=== PATIENT | male | born 1960 | race Caucasian/White ===

== ENCOUNTER 2023-02-28 20:58 | Emergency (ER) | payer MEDICAID, SELFPAY ==
[2023-02-28] VITALS (42 sets, daily range): BP systolic 90–182; BP diastolic 53–117; PULSE 58–75; RESP 11–26; TEMP 36.4; O2SAT 83–100; BMI 23.0
--- NOTE | 2023-02-28 21:07 | ECG_ITS ---
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
--- NOTE | 2023-02-28 21:07 | ED_ITS ---
HPI - Overdose General Chief Complaint: Overdose Stated Complaint: SUICIDE Time Seen by Provider: 02/28/23 21:07 History of Present Illness HPI Narrative: Patient brought in via EMS with a complaint of suicide attempt and overdose. Patient states he has drank about 10-12 tallboy's today. He drinks about every week. He states he has been depressed in the last 2 years after he was forced to retire because of declining health. Today his granddaughter did not make the volleyball team he was very upset so he grabbed the bottle of metoprolol which was filled february 19. He states he took the entire bottle of the pills that he had left-22 tablets of metoprolol 50 mg. She immediately called 911. She states he has been hospitalized in the past for mental health. He states he just sick and tired of living this way. Patient states he feels shaky. Denies any illegal drug use. Related Data Home Medications Medication Instructions Recorded Confirmed atorvastatin 80 mg tablet 80 mg PO DAILY 02/28/23 02/28/23 biotin 10,000 mcg capsule 10,000 mcg PO BID 02/28/23 02/28/23 gabapentin 400 mg capsule 400 mg PO TID 02/28/23 02/28/23 losartan 100 mg tablet 100 mg PO DAILY 02/28/23 02/28/23 magnesium oxide 400 mg (241.3 mg 400 mg PO DAILY 02/28/23 02/28/23 magnesium) tablet metoprolol succinate 50 mg 50 mg PO DAILY 02/28/23 02/28/23 tablet,extended release 24 hr spironolactone 25 mg tablet 25 mg PO DAILY 02/28/23 02/28/23 topiramate 50 mg tablet 50 mg PO BID 02/28/23 02/28/23 Allergies Allergy/AdvReac Type Severity Reaction Status Date / Time ivp dye Allergy Severe Uncoded 02/28/23 21:08 shell fish Allergy Severe Uncoded 02/28/23 21:08 Review of Systems ROS Status of ROS 10 or more systems reviewed and unremarkable except as noted in history and below Exam Narrative Exam Narrative: Nurses notes and vital signs reviewed and patient is not hypoxic. General: Nontoxic, Alcohol on board, intoxicated, cooperative, and in no apparent distress. Skin: Warm, dry, no pallor noted. No Rash Head: Normocephalic, atraumatic. Neck: Supple, non-tender. Eye: Pupils are equal, round and EOMI. No scleral icterus. Ears, Nose, Mouth, and Throat: TM clear, no posterior oropharynx erythema or nasal mucosal hypertrophy, uvula is mid-line Oral mucosa is moist Cardiovascular: Regular Rate and Rhythm without murmur, gallop or rub. Respiratory: No accessory muscle use or respiratory distress. Lungs are clear to auscultation, no wheezing, rales or rhonchi Chest Wall: no tenderness Back: No midline thoracic or lumbar vertebral tenderness. No CVA tenderness Musculoskeletal: normal ROM, no calf or popliteal tenderness, no lower extremity edema/swelling GI: Abdomen is soft, non-distended. Normal bowel sounds. No masses appreciated. No tenderness to palpation. No rebound, guarding, or rigidity noted. Neurological: A&O x4. No cranial nerve dysfunction observed. No truncal ataxia. Moves all extremities. Psychiatric: Cooperative and interactive. Tearful, stating he does not want to live anymore. Constitutional Vital Signs, click to edit/add: Last Vital Signs Temp 97.5 F L 02/28/23 21:00 Pulse 66 03/01/23 06:00 Resp 19 03/01/23 01:11 BP 124/75 03/01/23 06:00 Pulse Ox 97 03/01/23 05:40 O2 Del Method Room Air 02/28/23 21:21 Course Vital Signs Vital signs: Vital Signs Temperature 97.5 F L 02/28/23 21:00 Pulse Rate 70 02/28/23 21:00 Respiratory Rate 14 02/28/23 21:00 Blood Pressure 180/100 H 02/28/23 21:00 Pulse Oximetry 97 02/28/23 21:00 Oxygen Delivery Method Room Air 02/28/23 21:00 Temperature 97.5 F L 02/28/23 21:00 Pulse Rate 66 03/01/23 06:00 Respiratory Rate 19 03/01/23 01:11 Blood Pressure 124/75 03/01/23 06:00 Pulse Oximetry 97 03/01/23 05:40 Oxygen Delivery Method Room Air 02/28/23 21:21 MDM - Overdose MDM Narrative Medical decision making narrative: IV established, patient was given 1 L of normal saline and 50 g of charcoal was administered. poison control was contacted. Patient's vital signs are stable at this time. Patient's EKG shows sinus rhythm normal axis, no bradycardia, no acute ischemic changes. Completely control in place for observation until 4:30 AM. The patient has remai leeann hemodynamically stable. He was given a liter of normal saline. Heart rate 63, blood pressure 130/72, oxygen saturations 98 percent on room air. Patient is medically clear for psychiatric admission. Patient has been accepted by Dr. Salomon to [facility] [address] out to dr Patel Awaiting transportation. Differential Diagnosis Differential diagnosis: Likely drug overdose Lab Data Attestation: I reviewed the patient's lab results. Labs: Lab Results 02/28/23 02/28/23 02/28/23 Range/Units 21:00 21:55 22:22 WBC 6.3 (4.0-11.0) 10^3/uL RBC 4.08 L (4.70-6.10) 10^6/uL Hgb 13.6 L (14.0-18.0) g/dL Hct 37.6 L (42.0-54.0) % MCV 92.2 (80.0-94.0) fL MCH 33.3 (25.9-34.0) pg MCHC 36.2 H (29.9-35.2) g/dL RDW 11.8 (11.0-15.0) % Plt Count 223 (150-450) 10^3/uL MPV 10.7 (9.5-13.5) fL Neut % (Auto) 61.2 (43.0-75.0) % Lymph % (Auto) 25.2 (20.5-60.0) % Floyd % (Auto) 9.0 (1.7-12.0) % Eos % (Auto) 3.8 (0.9-7.0) % Baso % (Auto) 0.5 (0.2-2.0) % Neut # (Auto) 3.9 (1.4-6.5) 10^3/uL Lymph # (Auto) 1.6 (1.2-3.8) 10^3/uL Floyd # (Auto) 0.6 (0.3-0.8) 10^3/uL Eos # (Auto) 0.2 (0.0-0.7) 10^3/uL Baso # (Auto) 0.0 (0.0-0.1) 10^3/uL Abs Immat Gran (auto) 0.02 (0.00-0.03) 10^3/uL Imm/Tot Granulo (auto) 0.3 (0.0-0.5) % Sodium 139 (136-145) mmol/L Potassium 3.5 (3.5-5.1) mmol/L Chloride 108 H (98-107) mmol/L Carbon Dioxide 16.1 L (21.0-32.0) mmol/L Anion Gap 18.4 BUN 15.0 (7.0-18.0) mg/dL Creatinine 0.84 (0.70-1.30) mg/dL Est GFR ( Amer) >60 (>=60) Est GFR (Non-Af Amer) >60 (>=60) BUN/Creatinine Ratio 17.9 Glucose 144 H (74-106) mg/dL Calcium 8.1 L (8.5-10.1) mg/dL Total Bilirubin 0.4 (0.2-1.0) mg/dL AST 35 (15-37) U/L ALT 59 (16-63) U/L Alkaline Phosphatase 119 H (46-116) U/L Total Protein 6.6 (6.4-8.2) g/dL Albumin 3.6 (3.4-5.0) g/dL Globulin 3.0 g/dL Albumin/Globulin Ratio 1.2 Urine Color Lt. yellow (YELLOW) Urine Clarity Clear (CLEAR) Urine pH 6.0 (5.0-9.0) Ur Specific [place] <=1.005 A (1.005-1.025) Urine Protein Negative (NEG/TRACE) mg/dL Urine Glucose (UA) Negative (NEGATIVE) mg/dL Urine Ketones Negative (NEGATIVE) mg/dL Urine Occult Blood Negative (NEGATIVE) Urine Nitrite Negative (NEGATIVE) Urine Bilirubin Negative (NEGATIVE) Urine Urobilinogen 0.2 (0.2-1.0) EU/dL Ur Leukocyte Esterase Negative (NEGATIVE) Salicylates <2.8 (<=19.9) mg/dL Urine Opiates Screen Negative (NEGATIVE) Ur Buprenorphine Scrn Negative (NEGATIVE) Ur Oxycodone Screen Negative (NEGATIVE) Urine Methadone Screen Negative (NEGATIVE) Ur Propoxyphene Screen Negative (NEGATIVE) Acetaminophen <2.0 L (10.0-30.0) ug/mL Ur Barbiturates Screen Negative (NEGATIVE) U Tricyclic Antidepress Negative (NEGATIVE) Ur Phencyclidine Scrn Negative (NEGATIVE) Ur Amphetamines Screen Negative (NEGATIVE) U Methamphetamines Scrn Negative (NEGATIVE) U Benzodiazepines Scrn Negative (NEGATIVE) Urine Cocaine Screen Negative (NEGATIVE) U Cannabinoids Screen Negative (NEGATIVE) Ethanol Quant 135 mg/dL POC Glucose (74-106) mg/dL 02/28/23 Range/Units 22:23 WBC (4.0-11.0) 10^3/uL RBC (4.70-6.10) 10^6/uL Hgb (14.0-18.0) g/dL Hct (42.0-54.0) % MCV (80.0-94.0) fL MCH (25.9-34.0) pg MCHC (29.9-35.2) g/dL RDW (11.0-15.0) % Plt Count (150-450) 10^3/uL MPV (9.5-13.5) fL Neut % (Auto) (43.0-75.0) % Lymph % (Auto) (20.5-60.0) % Floyd % (Auto) (1.7-12.0) % Eos % (Auto) (0.9-7.0) % Baso % (Auto) (0.2-2.0) % Neut # (Auto) (1.4-6.5) 10^3/uL Lymph # (Auto) (1.2-3.8) 10^3/uL Floyd # (Auto) (0.3-0.8) 10^3/uL Eos # (Auto) (0.0-0.7) 10^3/uL Baso # (Auto) (0.0-0.1) 10^3/uL Abs Immat Gran (auto) (0.00-0.03) 10^3/uL Imm/Tot Granulo (auto) (0.0-0.5) % Sodium (136-145) mmol/L Potassium (3.5-5.1) mmol/L Chloride (98-107) mmol/L Carbon Dioxide (21.0-32.0) mmol/L Anion Gap BUN (7.0-18.0) mg/dL Creatinine (0.70-1.30) mg/dL Est GFR ( Amer) (>=60) Est GFR (Non-Af Amer) (>=60) BUN/Creatinine Ratio Glucose (74-106) mg/dL Calcium (8.5-10.1) mg/dL Total Bilirubin (0.2-1.0) mg/dL AST (15-37) U/L ALT (16-63) U/L Alkaline Phosphatase (46-116) U/L Total Protein (6.4-8.2) g/dL Albumin (3.4-5.0) g/dL Globulin g/dL Albumin/Globulin Ratio Urine Color (YELLOW) Urine Clarity (CLEAR) Urine pH (5.0-9.0) Ur Specific [place] (1.005-1.025) Urine Protein (NEG/TRACE) mg/dL Urine Glucose (UA) (NEGATIVE) mg/dL Urine Ketones (NEGATIVE) mg/dL Urine Occult Blood (NEGATIVE) Urine Nitrite (NEGATIVE) Urine Bilirubin (NEGATIVE) Urine Urobilinogen (0.2-1.0) EU/dL Ur Leukocyte Esterase (NEGATIVE) Salicylates (<=19.9) mg/dL Urine Opiates Screen (NEGATIVE) Ur Buprenorphine Scrn (NEGATIVE) Ur Oxycodone Screen (NEGATIVE) Urine Methadone Screen (NEGATIVE) Ur Propoxyphene Screen (NEGATIVE) Acetaminophen (10.0-30.0) ug/mL Ur Barbiturates Screen (NEGATIVE) U Tricyclic Antidepress (NEGATIVE) Ur Phencyclidine Scrn (NEGATIVE) Ur Amphetamines Screen (NEGATIVE) U Methamphetamines Scrn (NEGATIVE) U Benzodiazepines Scrn (NEGATIVE) Urine Cocaine Screen (NEGATIVE) U Cannabinoids Screen (NEGATIVE) Ethanol Quant mg/dL POC Glucose 147 H (74-106) mg/dL ECG Data Attestation: I personally reviewed and interpreted this ECG as follows: Critical Care Time Critical Care Time Critical Care Time: Yes Total Critical Care Time: 35 Attestation: Critical Care Time: 35 minutes, critical care time is separate from any procedures that are performed. The following was considered in the determination of critical care but not limited to the level medical decision-making, intensive cardiac and/or respiratory monitor, frequent vital sign monitoring, evaluation of laboratory studies, evaluation of a radiographic studies, oxygen monitoring and constant monitoring. Discharge Plan Discharge Chief Complaint: Overdose Clinical Impression: Suicide attempt by beta renetta overdose, Medical clearance for psychiatric admission Patient Disposition: [facility] Time of Disposition Decision: 06:52 Discharge Location: [facility] Discharge location: [address] salomon Condition: Good Mode of Transportation: EMS
--- NOTE | 2023-02-28 21:20 | PC.NURSE ---
placed by EMS
[2023-02-28] MEDS: 0.9 % SODIUM CHLORIDE 1,000 ML 100 ML IV (21:24)
[2023-02-28 21:27] LABS: Bilirubin Urine NEGATIVE (NEGATIVE); Blood Urine NEGATIVE (NEGATIVE); Clarity Urine CLEAR (CLEAR); Color Urine LT. YELLOW (YELLOW); Glucose Urine UA NEGATIVE (NEGATIVE); Ketones Urine NEGATIVE (NEGATIVE); Leukocyte Esterase Urine NEGATIVE (NEGATIVE); Nitrite Urine NEGATIVE (NEGATIVE); Protein Urine NEGATIVE (NEG/TRACE); Specific Gravity Urine <=1.005 (1.005-1.025); Urine Microscopic Indicated NO; Urobilinogen Urine 0.2 EU/dL (0.2-1.0)
[2023-02-28 21:49] LABS: Amphetamine Screen Urine NEGATIVE (NEGATIVE); Barbiturates Screen Urine NEGATIVE (NEGATIVE); Benzodiazepines Screen Urine NEGATIVE (NEGATIVE); Buprenorphine Screen Urine NEGATIVE (NEGATIVE); Cannabinoid Screen Urine NEGATIVE (NEGATIVE); Cocaine Screen Urine NEGATIVE (NEGATIVE); Methadone Screen Urine NEGATIVE (NEGATIVE); Methamphetamines Screen Urine NEGATIVE (NEGATIVE); Opiate Screen Urine NEGATIVE (NEGATIVE); Oxycodone Screen Urine NEGATIVE (NEGATIVE); Phencyclidine Screen Urine NEGATIVE (NEGATIVE); Tricyclic Antidepressant Urine NEGATIVE (NEGATIVE)
[2023-02-28 22:05] LABS: Basophils Percent Auto 0.5 % (0.2-2.0); Eosinophils Absolute Auto 0.2 10^3/uL (0.0-0.7); Eosinophils Percent Auto 3.8 % (0.9-7.0); Hematocrit 37.6 % (42.0-54.0); Hemoglobin 13.6 g/dL (14.0-18.0); Immature Granulocytes Abs Auto 0.02 10^3/uL (0.00-0.03); Immature Granulocytes Pct Auto 0.3 % (0.0-0.5); Lymphocytes Absolute Auto 1.6 10^3/uL (1.2-3.8); Lymphocytes Percent Auto 25.2 % (20.5-60.0); Mean Corpuscular HGB Conc 36.2 g/dL (29.9-35.2); Mean Corpuscular Hemoglobin 33.3 pg (25.9-34.0); Mean Corpuscular Volume 92.2 fL (80.0-94.0); Mean Platelet Volume 10.7 fL (9.5-13.5); Monocytes Absolute Auto 0.6 10^3/uL (0.3-0.8); Neutrophils Absolute Auto 3.9 10^3/uL (1.4-6.5); Neutrophils Percent Auto 61.2 % (43.0-75.0); Platelet Count 223 10^3/uL (150-450); Red Blood Count 4.08 10^6/uL (4.70-6.10); Red Cell Distribution Width 11.8 % (11.0-15.0); White Blood Count 6.3 10^3/uL (4.0-11.0)
[2023-02-28 22:34] LABS: Glucometer 147 mg/dL (74-106)
[2023-02-28 23:11] LABS: Alanine Aminotransferase 59 U/L (16-63); Albumin Globulin Ratio 1.2; Albumin Level 3.6 g/dL (3.4-5.0); Alkaline Phosphatase 119 U/L (46-116); Anion Gap 18.4; Aspartate Amino Transferase 35 U/L (15-37); BUN Creatinine Ratio 17.9; Bilirubin Total 0.4 mg/dL (0.2-1.0); Calcium 8.1 mg/dL (8.5-10.1); Carbon Dioxide 16.1 mmol/L (21.0-32.0); Chloride 108 mmol/L (98-107); Estimated GFR (African America >60 (>=60); Estimated GFR (Non-African Ame >60 (>=60); Ethanol 135 mg/dL; Glucose 144 mg/dL (74-106); Potassium 3.5 mmol/L (3.5-5.1); Salicylate <2.8 mg/dL (<=19.9); Sodium 139 mmol/L (136-145); Total Protein 6.6 g/dL (6.4-8.2)
[2023-02-28 23:13] LABS: Acetaminophen <2.0 ug/mL (10.0-30.0)
[2023-03-01] VITALS (71 sets, daily range): BP systolic 77–172; BP diastolic 46–101; PULSE 59–85; RESP 15–21; O2SAT 88–99
[2023-03-01] MEDS: PROMETHAZINE HCL 25 MG/ML VIAL 12.5 MG IV (01:34)
[2023-03-01] MEDS: 0.9 % SODIUM CHLORIDE 1,000 ML 1000 ML IV (01:34)
== END 2023-03-01 08:58 ==
PROVIDERS: Emergency Provider Emergency Medicine; PCP Family Medicine
DX: T44.7X2A Poisoning by beta-adrenoreceptor antagonists, intentional self-harm, initial encounter (principal); Z79.899 Other long term (current) drug therapy
CPT/HCPCS: 36415; 36416; 80053; 80179; 80307; 80320; 80329; 81003; 82948; 85025; 93005; 96374; 99285

== ENCOUNTER 2024-06-11 11:40 | Outpatient (OUT) | payer OTHER, SELFPAY ==
[2024-06-11 12:04] LABS: Basophils Percent Auto 0.6 % (0.2-2.0); Eosinophils Absolute Auto 0.2 10^3/uL (0.0-0.7); Eosinophils Percent Auto 2.2 % (0.9-7.0); Hemoglobin 15.5 g/dL (14.0-18.0); Immature Granulocytes Abs Auto 0.02 10^3/uL (0.00-0.03); Immature Granulocytes Pct Auto 0.3 % (0.0-0.5); Lymphocytes Percent Auto 27.8 % (20.5-60.0); Mean Corpuscular HGB Conc 34.4 g/dL (29.9-35.2); Mean Corpuscular Hemoglobin 33.3 pg (25.9-34.0); Mean Corpuscular Volume 96.6 fL (80.0-94.0); Mean Platelet Volume 10.7 fL (9.5-13.5); Monocytes Absolute Auto 0.5 10^3/uL (0.3-0.8); Monocytes Percent Auto 7.4 % (1.7-12.0); Neutrophils Absolute Auto 4.5 10^3/uL (1.4-6.5); Neutrophils Percent Auto 61.7 % (43.0-75.0); Platelet Count 189 10^3/uL (150-450); Red Blood Count 4.66 10^6/uL (4.70-6.10); Red Cell Distribution Width 11.5 % (11.0-15.0); White Blood Count 7.3 10^3/uL (4.0-11.0)
== END 2024-06-11 11:41 | disposition home or self-care (01) ==
LOC: LAB 11:42
PROVIDERS: PCP Family Medicine; Visit Provider Family Medicine
DX: K57.33 Diverticulitis of large intestine without perforation or abscess with bleeding (principal); K62.5 Hemorrhage of anus and rectum
CPT/HCPCS: 36415; 85025

== ENCOUNTER 2024-07-29 15:57 | Outpatient (OUT) | payer OTHER, SELFPAY ==
[2024-07-29 16:20] LABS: Basophils Percent Auto 0.4 % (0.2-2.0); Eosinophils Absolute Auto 0.1 10^3/uL (0.0-0.7); Eosinophils Percent Auto 1.3 % (0.9-7.0); Hematocrit 50.5 % (42.0-54.0); Hemoglobin 18.1 g/dL (14.0-18.0); Immature Granulocytes Abs Auto 0.01 10^3/uL (0.00-0.03); Immature Granulocytes Pct Auto 0.2 % (0.0-0.5); Lymphocytes Percent Auto 44.7 % (20.5-60.0); Mean Corpuscular HGB Conc 35.8 g/dL (29.9-35.2); Mean Corpuscular Hemoglobin 33.8 pg (25.9-34.0); Mean Corpuscular Volume 94.2 fL (80.0-94.0); Mean Platelet Volume 10.8 fL (9.5-13.5); Monocytes Absolute Auto 0.7 10^3/uL (0.3-0.8); Monocytes Percent Auto 15.1 % (1.7-12.0); Neutrophils Absolute Auto 1.7 10^3/uL (1.4-6.5); Neutrophils Percent Auto 38.3 % (43.0-75.0); Platelet Count 144 10^3/uL (150-450); Red Blood Count 5.36 10^6/uL (4.70-6.10); Red Cell Distribution Width 11.5 % (11.0-15.0); White Blood Count 4.5 10^3/uL (4.0-11.0)
--- NOTE | 2024-07-29 16:33 | XR_ITS ---
[address] [address] Patient Name: JARON RODGERS MRN: [id number] date: 1960 Sex: M Assigned Patient Location: LAB Current Patient Location: Accession/Order Number: [id number] Exam Date: 07/29/2024 16:30 Report Date: 07/30/2024 07:39 At the request of: ANTHONY HOOKS Procedure: XR abdomen 1V EXAMINATION: XR abdomen 1V HISTORY: Pain in upper abdomen COMPARISON: No relevant comparison available. FINDINGS: BOWEL GAS PATTERN: No abnormal dilation or deviation. CALCIFICATIONS: None significant. OTHER: Negative. No abnormal gaseous collections. XR/XR abdomen 1V IMPRESSION: Nonobstructive bowel gas pattern Electronically authenticated by: REYNA ESTRADA Date: 07/30/2024 07:39
[2024-07-29 16:34] LABS: Alanine Aminotransferase 43 U/L (16-63); Albumin Globulin Ratio 1.1; Albumin Level 3.8 g/dL (3.4-5.0); Alkaline Phosphatase 151 U/L (46-116); Anion Gap 15.1; Aspartate Amino Transferase 38 U/L (15-37); BUN Creatinine Ratio 14.4; Bilirubin Total 0.6 mg/dL (0.2-1.0); Calcium 8.6 mg/dL (8.5-10.1); Carbon Dioxide 22.1 mmol/L (21.0-32.0); Chloride 109 mmol/L (98-107); Estimated GFR (African America >60 (>=60 mL/min/1.73m^2); Estimated GFR (Non-African Ame >60 (>=60 mL/min/1.73m^2); Globulin 3.6 g/dL; Glucose 116 mg/dL (74-106); Potassium 4.2 mmol/L (3.5-5.1); Sodium 142 mmol/L (136-145); Total Protein 7.4 g/dL (6.4-8.2)
== END 2024-07-29 15:58 | disposition home or self-care (01) ==
LOC: LAB 15:59
PROVIDERS: PCP Family Medicine; Visit Provider Family Medicine
DX: R10.10 Upper abdominal pain, unspecified (principal); R19.7 Diarrhea, unspecified
CPT/HCPCS: 36415; 74018; 80053; 83690; 85025

== ENCOUNTER 2024-07-30 08:18 | Emergency (ER) | payer OTHER, SELFPAY ==
[2024-07-30 08:28] VITALS: BP 135/94; PULSE 70; TEMP 36.8; O2SAT 100; BMI 22.2
--- NOTE | 2024-07-30 08:33 | CT_ITS ---
[address] [address] Patient Name: JARON RODGERS MRN: [id number] date: 1960 Sex: M Assigned Patient Location: ER Current Patient Location: ER Accession/Order Number: [id number] Exam Date: 07/30/2024 09:05 Report Date: 07/30/2024 09:57 At the request of: POORNIMA GOOD Procedure: CT abdomen pelvis wo con EXAMINATION: CT abdomen pelvis wo con HISTORY: Epigastric pain COMPARISON: No relevant comparison available. TECHNIQUE: Axial, Coronal, and Sagittal images were created without IV contrast. Dose reduction techniques were achieved by using automated exposure control and/or adjustment of mA and/or kV according to patient size and/or use of iterative reconstruction technique. FINDINGS: LUNG BASES: No visible pulmonary or pleural disease. LIVER: No enlargement, atrophy, abnormal density, or significant focal lesion. BILIARY: Surgical clips from cholecystectomy PANCREAS: No lesion, fluid collection, ductal dilatation, or atrophy. SPLEEN: No enlargement or focal lesion. ADRENALS: No mass or enlargement. KIDNEYS: Nonobstructing nephrolithiasis. No obstructive uropathy BOWEL/MESENTERY: Extensive colonic diverticulosis without evidence of acute diverticulitis. Nonobstructive bowel gas pattern AORTA/VASCULAR: Moderate calcific atherosclerosis RETROPERITONEUM: No mass or adenopathy. LYMPH NODES: No adenopathy. URINARY BLADDER: 5.5 mm calcification along the inferior posterior urinary bladder. Image #110 PELVIC ORGANS: Mild enlargement of the prostate gland measuring 4.7 cm transversely ABDOMINAL WALL: No mass or hernia. BONES: No bony lesion or fracture. OTHER: Negative. CT/CT abdomen pelvis wo con IMPRESSION: No obstructive uropathy 5.5 mm nonspecific calcification inferior right urinary bladder Electronically authenticated by: REYNA ESTRADA Date: 07/30/2024 09:57
--- NOTE | 2024-07-30 08:34 | ED.ABDPAIN1 ---
HPI - Abdominal Pain General Chief Complaint: Abdominal Pain Stated Complaint: ABDOMINAL PAIN Time Seen by Provider: 07/30/24 08:29 Source: patient and family Mode of arrival: walk-in Limitations: no limitations History of Present Illness HPI narrative: 63-year-old male presents to the emergency department for abdominal pain. It is in the epigastric area and he has had it for a few days. He saw his family doctor for an outpatient x-ray and some blood tests. He was told to come here to get a CAT scan. He has had cholecystectomy. 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 No trauma or fever. No vomiting constipation or diarrhea. Related Data Home Medications ?Medication ?Instructions ?Recorded ?Confirmed atorvastatin 80 mg tablet 80 mg PO DAILY 02/28/23 07/30/24 biotin 10,000 mcg capsule 10,000 mcg PO BID 02/28/23 07/30/24 gabapentin 400 mg capsule 400 mg PO TID 02/28/23 07/30/24 losartan 100 mg tablet 100 mg PO DAILY 02/28/23 07/30/24 magnesium oxide 400 mg (241.3 mg 400 mg PO DAILY 02/28/23 07/30/24 magnesium) tablet topiramate 50 mg tablet 50 mg PO BID 02/28/23 07/30/24 desvenlafaxine succinate 50 mg 50 mg PO DAILY 07/30/24 07/30/24 tablet,extended release 24 hr sotalol 80 mg tablet 80 mg PO DAILY 07/30/24 07/30/24 tramadol 50 mg tablet 50 mg PO Q12H 07/30/24 07/30/24 Previous Rx's ?Medication ?Instructions ?Recorded esomeprazole magnesium 40 mg 40 mg PO DAILY 28 days #28 caps 07/30/24 capsule,delayed release (Nexium) Allergies Allergy/AdvReac Type Severity Reaction Status Date / Time ivp dye Allergy Severe Uncoded 02/28/23 21:08 shell fish Allergy Severe Uncoded 02/28/23 21:08 Review of Systems ROS Narrative A ten point review of systems is negative except as noted above. Exam Narrative Exam Narrative: Nurses note and vital signs reviewed and patient is not hypoxic. General: The patient appears in no apparent distress. Patient appears uncomfortable. Skin: Warm, dry, no pallor noted. There is no rash noted. Head: Normocephalic, atraumatic Eye: Normal conjunctiva, no drainage Ears, Nose, Mouth, and Throat: oral mucosa is moist. Nares patent. Cardiovascular: Regular Rate and Rhythm Respiratory: Patient is in no distress, no accessory muscle use, lungs are clear to auscultation, no wheezing, rales or rhonchi Back: non-tender GI: Soft and nondistended. Tender in the epigastric area without mass Musculoskeletal: The patient has no evidence of calf tenderness, no pitting edema, symmetrical pulses noted bilaterally Neurological: A&O, normal speech Psychiatric: Cooperative Constitutional Vital Signs, click to edit/add: Last Vital Signs Temp 98.3 F 07/30/24 08:28 Pulse 70 07/30/24 08:28 Resp 18 07/30/24 08:28 BP 135/94 H 07/30/24 08:28 Pulse Ox 98 07/30/24 09:16 O2 Del Method Room Air 07/30/24 09:16 Course Vital Signs Vital signs: Vital Signs Temperature 98.3 F 07/30/24 08:28 Pulse Rate 70 07/30/24 08:28 Respiratory Rate 18 07/30/24 08:28 Blood Pressure 135/94 H 07/30/24 08:28 Pulse Oximetry 100 07/30/24 08:28 Oxygen Delivery Method Room Air 07/30/24 08:28 Temperature 98.3 F 07/30/24 08:28 Pulse Rate 70 07/30/24 08:28 Respiratory Rate 18 07/30/24 08:28 Blood Pressure 135/94 H 07/30/24 08:28 Pulse Oximetry 98 07/30/24 09:16 Oxygen Delivery Method Room Air 07/30/24 09:16 MDM - Abdominal Pain MDM Narrative Medical decision making narrative: CAT scan here today is negative and his blood work is unremarkable. He is prescribed Nexium and will follow-up with his doctor. Treatment diagnosis and follow-up were discussed with the patient. Differential Diagnosis Differential diagnosis: Likely abdominal pain, constipation and other (Colitis, duodenitis) Lab Data Attestation: I reviewed the patient's lab results. Labs: Lab Results 07/30/24 Range/Units 08:35 WBC 3.9 L (4.0-11.0) 10^3/uL RBC 5.04 (4.70-6.10) 10^6/uL Hgb 16.9 (14.0-18.0) g/dL Hct 47.0 (42.0-54.0) % MCV 93.3 (80.0-94.0) fL MCH 33.5 (25.9-34.0) pg MCHC 36.0 H (29.9-35.2) g/dL RDW 11.5 (11.0-15.0) % Plt Count 138 L (150-450) 10^3/uL MPV 10.8 (9.5-13.5) fL Seg Neuts % (Manual) 45.0 (43.0-75.0) Band Neutrophils % 1.0 (0-5) % Lymphocytes % (Manual) 38.0 (20.5-60.0) % Atypical Lymphs % (Man) 3.0 % Monocytes % (Manual) 11.0 (1.7-12.0) % Eosinophils % (Manual) 2.0 (0.9-7.0) % Basophils % (Manual) 0.0 L (0.2-2.0) % Neutrophils # (Manual) 1.75 (1.4-6.5) 10^3/uL Band Neutrophils # 0.0 (0.0-0.3) 10^3/uL Lymphocytes # (Manual) 1.48 (1.20-3.80) 10^3/uL Abs Atypical Lymphs Man 0.11 Monocytes # (Manual) 0.42 (0.30-0.80) 10^3/uL Eosinophils # (Manual) 0.07 (0.00-0.70) 10^3/uL Basophils # (Manual) 0.00 (0.00-0.10) 10^3/uL Sodium 143 (136-145) mmol/L Potassium 3.9 (3.5-5.1) mmol/L Chloride 109 H (98-107) mmol/L Carbon Dioxide 23.5 (21.0-32.0) mmol/L Anion Gap 14.4 BUN 20.0 H (7.0-18.0) mg/dL Creatinine 1.18 (0.70-1.30) mg/dL Est GFR ( Amer) >60 (>=60 mL/min/1.73m^2) Est GFR (Non-Af Amer) >60 (>=60 mL/min/1.73m^2) BUN/Creatinine Ratio 16.9 Glucose 122 H (74-106) mg/dL Calcium 9.1 (8.5-10.1) mg/dL Total Bilirubin 0.7 (0.2-1.0) mg/dL Direct Bilirubin 0.1 (0.0-0.2) mg/dL AST 30 (15-37) U/L ALT 36 (16-63) U/L Alkaline Phosphatase 153 H (46-116) U/L Total Protein 7.1 (6.4-8.2) g/dL Albumin 3.9 (3.4-5.0) g/dL Globulin 3.2 g/dL Albumin/Globulin Ratio 1.2 Amylase 53 (25-115) U/L Lipase 54.0 (16.0-77.0) U/L Imaging Data CT scan - abdomen: Radiologist's impression: ITS Impressions Abdomen/Pelvis CT 07/30/24 08:33 IMPRESSION: No obstructive uropathy 5.5 mm nonspecific calcification inferior right urinary bladder Electronically authenticated by: REYNA ESTRADA Date: 07/30/2024 09:57 Discharge Plan Discharge Chief Complaint: Abdominal Pain Clinical Impression: Abdominal pain, epigastric Patient Disposition: Home, Self-Care Time of Disposition Decision: 10:48 Condition: Good Mode of Transportation: Private Vehicle Prescriptions / Home Meds: New esomeprazole magnesium [Nexium] 40 mg capsule,delayed release(DR/EC) 40 mg PO DAILY 28 Days Qty: 28 0RF No Action atorvastatin 80 mg tablet 80 mg PO DAILY biotin 10,000 mcg capsule 10,000 mcg PO BID gabapentin 400 mg capsule 400 mg PO TID losartan 100 mg tablet 100 mg PO DAILY magnesium oxide 400 mg (241.3 mg magnesium) tablet 400 mg PO DAILY topiramate 50 mg tablet 50 mg PO BID desvenlafaxine succinate 50 mg tablet extended release 24 hr 50 mg PO DAILY sotalol 80 mg tablet 80 mg PO DAILY tramadol 50 mg tablet 50 mg PO Q12H Print Language: Maltese Instructions: Epigastric Pain (ED) Referrals: ANTHONY HOOKS [Primary Care Provider] - 1 week
--- OUTSIDE RECORDS SUMMARY | 2024-07-30 08:49 | XMS_ITS | CCD ---
Author Organization [facility] Care Team Providers Care Headrig Sawyer Name Role Phone ANTHONY MARTINEZ Unavailable Unavailable ANTHONY MARTINEZ Unavailable Unavailable NONE, XXXX Primary Care Physician Unavailab MD Archie Shepard Primary Care Provider DO Emir Tejada Emergency Provider [phone] MD Jd Mcdowell Emergency Provider JESSEE ., DR CRUZ Primary Care Unavailable PAY ., DR SMALLS Admitting Unavailable PAY ., DR SMALLS Attending Unavailable GRECHNY ., EZEKIEL GONSALEZ Consulting Unavailabl e HAY ., DR URBANO Consulting Unavailable NEFEMILIA, DUNG Consulting Unavailable HEMEYER ., DR CRUZ Admitting Unavailable HEMEYER ., DR CRUZ Attending Unavailable HEMEYER ., DR CRUZ Primary Care Unavailable HEMEYER ., DR CRUZ Consulting Unavailable ZIEBER, DR TRI Bauman Consulting Unavailable MD Archie Hooks Primary Care Provider [phone] DO Alexy Albarran Emergency Provider MD Chantel Hassan Admit Provider MD Chantel Hassan Attending Provider Archie Hooks Unavailable Unavailable Unavailable DO Myriam Galan Other Provider ZAKI Alvarez Attending Provider [phone] MD Archie Hooks Primary Care Provider MD Benny Capps Admit Provider [phone] MD Benny Capps Attending Provider LEONEL SANDOVAL Attending Unavailabl e Jessee, Dr. Archie Loja [facility] Unadurga ilLEONEL Reyna Referring Unavailabl e Jessee, Dr. Archie Loja Referring Unava ilable Jessee, Dr. Archie Loja [facility] LEONEL Carranza Attending UnavailMD Archie Alonso Primary Care Provider [phone] MD Serafin Capps Admit Provider MD Buddy Rome Attending Provider [phone] DO Myriam Galan Attending Provider Jaime, . Leonel Wilkinson Attending Unalizy Sandoval, Ms. Leonel Wilkinson Referring Unavai lable Jessee, Dr. Archie Loja [facility] UnaLópez Ron Attending Unavailable López Galan Referring Unavailable Hemealejandra, Dr. Archie Loja [facility] Unava ilable Mazariegos, Dr. Adelita Xie Attending Lorie vailable Mazariegos, Dr. Adelita Xie Referring Lorie vailable Hemealejandra, Dr. Archie Loja [facility] Unava ilvania Sandoval, Ms. Leonel Wilkinson Attending Ashley Sandoval, Ms. Leonel Wilkinson Referring Unavai lable Jessee, Dr. Archie Loja [facility] Unava ilvania Sandoval, Tristan Wlikinson Attending Ashley Sandoval, Ms. Leonel Wilkinson Referring Unavai lable Hemealejandra, Dr. Archie Loja [facility] Unava ilvania Hooks MD, Archie Loja Primary Care Provider MD Archie Hooks Primary Care Provider DO Myriam Galan Attending Provider DO Dalton Hernandez Emergency Provider Unavabridgette HOOKS, ARCHIE Soriano Primary Care Physician Unavail able ZAKI Rush Emergency Provider [phone] LÓPEZ GALAN Attending Unavailable ARCHIE HOOKS Primary Care Unavailab le MCGUINN, LÓPEZ P Attending Unavailable LÓPEZ GALAN S Referring Unavailable HEMEYER, ARCHIE [facility] Unavailab le PAPOUINN, LPÓEZ P Referring Unavailable HEMEYER, [facility] Unavailab le MCGUINN, LÓPEZ P Referring Unavailable HEMEYER, [facility] Unavailab le MCGUINN, LÓPEZ P Attending Unavailable MCGUINN, LÓPEZ P Referring Unavailable HEMEYER, [facility] Care Unavailab le COOK, Víctor P Attending Unavailable COOK, Víctor P Admitting Unavailable COOK, Víctor P Referring Unavailable COOK, Víctor P Attending Unavailable COOK, Víctor P Attending Unavailable COOK, Víctor P Attending Unavailable COOK, Víctor P Referring Unavailable COOK, Víctor P Attending Unavailable COOK, Víctor P Admitting Unavailable COOK, Víctor P Attending Unavailable COOK, Víctor P Admitting Unavailable Hemeyer Archie MELENDEZ Primary Care Provider LUIS RUBY Attending Unavailable JESSEE, ARCHIE Soriano Attending Unavailable LUIS RUBY Attending Unavailable LUIS RUBY Attending Unavailable ARCHIE HOOKS Attending Unavailable HEMEALEJANDRA, ARCHIE Soriano Attending Unavailable LUIS RUBY Attending Unavailable Archie Hooks MD Primary Care Provider Archie Hooks MD Primary Care Provider Serafin Capps Attending Unavailab Serafin Mckinnon Admitting Unavailab Archie Shepard Primary Care Unavailable Allergies Allergy Classification Reported Allergen(s) Allergy Type Date of Onset Reaction(s) Facility Cont[facility] (2 sources) Contrast media; Translations: [contrast media (iodine-based)] Substance Allergy Weal (disorder) [facility] (1 source) IODINATED CONTRAST- ORAL AND IV DYE; Translations: [IODINATED CONTRAST- ORAL AND IV DYE] Propensity to adverse reactions to drug (disorder) 5 [facility] Repository (6 sources) Contrast media; Translations: [contrast media (iodine-based)] Drug allergy Weal (disorder) [facility] (8 sources) Seafood; Translations: [Seafood] Drug allergy Unknown (qualifier value) [facility] (20 sources) Iodinated Contrast Media; Translations: [Iodinated Contrast Media] Allergy to substance 3 Unknown [facility] (1 source) Iodine (And Iodine Containting Drugs) Drug allergy (disorder) 3 [facility] Repository (11 sources) Shellfish; Translations: [SHELLFISH DERIVED] Drug allergy (disorder) 3 Unknown [facility] Repository (18 sources) Shellfish-deriv ed Products; Translations: [Shellfish-deri lizy Products] Allergy to drug (finding) 3 [facility] 250 DO Work Phone: (1 source) Shellfish Drug allergy (disorder) 3 [facility] Repository Medications Current Medications Medication Drug Class(es) Dates Sig (Normalized) Sig (Original) 24 hr alfuzosin hydrochloride 10 mg extended release oral tablet (1 source) alpha-Adrenergic Renetta Start: 01-17-2024 take 1 tablet by mouth once daily alfuzosin 10 mg ER Tab 10 mg = 1 tab(s), Oral, Daily, # 30 tab(s), Refills(s) 11, Pharmacy: [facility] #[id number], 184, cm, 01/17/24 10:43:00 EDT, Height/Length Dosing, 78.7, kg, 01/17/24 10:43:00 EDT, Weight Dosing Start Date: 01/17/24 Status: Ordered apixaban 5 mg oral tablet (20 sources) Factor Xa Inhibitor Start: 06-01-2023 End: 05-02-2024 take 1 tablet by mouth in the morning Eliquis 5 MG tablet Take 5 mg by mouth in the morning and 5 mg before bedtime. 06/01/2023 Active aspirin 81 mg oral tablet (13 sources) Platelet Aggregation Inhibitor, Nonsteroidal Anti-inflammatory Drug Start: 09-24-2022 take 81 mg by mouth once daily Aspirin Active 81 MG PO Daily September 24, 2022 12:00am End: 06-01-2023 take 1 tablet by mouth once daily aspirin 81 mg EC tablet Take 1 tablet (81 mg) by mouth once daily. 0 06/01/2023 Discontinued (Therapy completed) atorvastatin 80 mg oral tablet (20 sources) HMG-CoA Reductase Inhibitor Start: 04-21-2022 End: 10-29-2024 take 1 tablet by mouth once daily atorvastatin (Lipitor) 80 MG tablet Indications: Mixed dyslipidemia (CMS/HCC) Take 1 tablet (80 mg) by mouth Daily 90 tablet 1 05/02/2024 10/29/2024 Active biotin 10 mg oral capsule (20 sources) Start: 10-06-2023 take 1 capsule by mouth once daily at bedtime biotin 10 MG capsule take 1 capsule by mouth every morning and BEFORE BEDTIME 10/06/2023 Active Start: 07-20-2023 take 1 tablet by kristen th twice daily biotin 1 tablet, Oral, BID, Refills(s) 0 Start Date: 07/20/23 Status: Ordered Start: 01-29-2022 take 2 capsules by m outh twice daily Biotin Active 17625 MCG PO Twice daily January 28, 2022 11:00pm 2 CAPSULES TWICE DAILY Start: 01-29-2022 take 2 capsules by m outh twice daily Biotin Active 65279 MCG PO Twice daily January 29, 2022 12:00am 2 CAPSULES TWICE DAILY take 1 tablet by kristen twice daily biotin 10 mg tablet Take 1 tablet (10 mg) by mouth 2 times a day. Active take 1 tablet by mouth once sky y biotin 10 mg tablet Take 1 tablet (10 mg) by mouth once daily. 0 Active Biotin 10 MG Ora l Tablet TAKE DIRECTED. Quantity: 0 Refills: 0 Ordered: 25-Jan-2023 DO Active BIOTIN 10,000 MCG SOFTGEL (5 sources) Start: 07-04-2023 BIOTIN 10,000 MCG SOFTGEL BIOTIN 10,000 MCG SOFTGEL, BID Start Date: 07/04/23 Status: Ordered Start: 07-04-2023 BIOTIN 10,000 MCG SOFTGEL BIOTIN 10,000 MCG SOFTGEL Start Date: 07/04/23 Status: Ordered cephalexin 500 mg oral capsule (3 sources) Cephalosporin Antibacterial Start: 06-23-2023 take 500 mg by mouth three times daily Cephalexin Active 500 MG PO Three times daily 17 02June 23, 2023 12:00am ciprofloxacin 500 mg oral tablet (5 sources) Quinolone Antimicrobial Start: 06-11-2024 End: 06-21-2024 take 1 tablet by mouth in the morning ciprofloxacin (Cipro) 500 MG tablet Indications: Diverticulitis of large intestine with bleeding, unspecified complication status Take 1 tablet (500 mg) by mouth in the morning and 1 tablet (500 mg) before bedtime. Do all this for 10 days. 20 tablet 06/11/2024 06/21/2024 Active Start: 07-20-2023 take 1 tablet by kristen th twice daily Cipro 500 mg Tab 500 mg = 1 tab(s), Oral, BID, # 10 tab(s), Refills(s) 0, Pharmacy: [facility] #[id number], 185, cm, 07/17/23 5:45:00 EST, Height/Length Dosing, 77, kg, 07/17/23 5:45:00 EST, Weight Dosing Start Date: 07/20/23 Status: Ordered 24 hr desvenlafaxine succinate 25 mg extended release oral tablet (20 sources) Serotonin and Norepinephrine Reuptake Inhibitor Start: 07-04-2023 take 1 tablet by mouth once daily desvenlafaxine 25 mg oral tablet, extended release 25 mg = 1 tab(s), Oral, Daily, Depression Start Date: 07/04/23 Status: Ordered Start: 04-27-2023 End: 06-28-2023 take 25 mg by mouth once daily Desvenlafaxine Succinat e Discontinued 25 MG PO Daily April 26, 2023 11:00pm June 28, 2023 12:08pm take 1 tablet by kristen th once daily desvenlafaxine (Pristiq) 50 MG 24 hr tablet Take 1 tablet by mouth Daily Active take 2 tablets by mo [facility] once daily desvenlafaxine succinate (Pristiq) 25 mg 24 hour tablet Take 2 tablets (50 mg) by mouth once daily. Active famotidine 40 mg oral tablet (5 sources) Histamine-2 Receptor Antagonist Start: 10-27-2023 End: 10-26-2024 take 1 tablet by mouth once daily famotidine (Pepcid) 40 mg tablet Indications: Other chest pain Take 1 tablet (40 mg) by mouth once daily. 90 tablet 3 10/27/2023 10/26/2024 Active Start: 04-27-2023 End: 06-01-2023 take 1 tablet by mouth once daily famotidine (Pepcid) 40 mg tablet Take 1 tablet (40 mg) by mouth once daily. 0 04/27/2023 06/01/2023 Discontinued (Therapy completed) gabapentin 400 mg oral capsule (20 sources) Anti-epileptic Agent Start: 02-19-2024 End: 07-26-2024 gabapentin (Neurontin) 400 MG capsule Indications: Polyneuropathy TAKE 1 CAPSULE BY MOUTH FOUR TIMES DAILY IN THE MORNING then IN THE AFTERNOON then IN THE EVENING then AT BEDTIME 120 capsule 2 07/26/2024 Active Start: 05-31-2023 take 1 capsule by mo [facility] four times daily gabapentin (Neurontin) 400 mg capsule Take 1 capsule (400 mg) by mouth 4 times a day. 05/31/2023 Active Start: 01-29-2022 take 1 capsule by [facility] three times daily gabapentin 400 mg Cap 400 mg = 1 cap(s), Oral, TID, Neuropathy Start Date: 07/04/23 Status: Ordered Gabapentin 400 M G TABS TAKE 1 TABLET 3 TIMES DAILY. Quantity: 0 Refills: 0 Ordered: 25-Jan-2023 DO Active losartan potassium 100 mg oral tablet (20 sources) Angiotensin 2 Receptor Renetta Start: 05-25-2023 End: 10-29-2024 take 1 tablet by mouth once daily losartan (Cozaar) 100 MG tablet Indications: Benign essential hypertension (CMS/HCC) Take 1 tablet (100 mg) by mouth Daily 90 tablet 1 05/02/2024 10/29/2024 Active Start: 09-24-2022 take 100 mg by mouth once sky y Losartan Active 100 MG PO Daily September 24, 2022 12:00am Start: 09-03-2018 End: 02-25-2021 take 100 mg by mouth once daily Losartan Discontinued 100 MG PO Daily September 03, 2018 12:00am February 25, 2021 12:00pm take 1 tablet by [facility] once daily Losartan Potassium 100 MG Oral Tablet TAKE 1 TABLET DAILY. Quantity: 0 Refills: 0 Ordered: 25-Jan-2023 DO Active magnesium oxide 400 mg oral tablet (20 sources) Start: 01-25-2023 End: 06-01-2023 take 1 tablet by mouth in the morning magnesium oxide (Mag-Ox) 400 (240 Mg) MG tablet Take 400 mg by mouth in the morning. 02/26/2023 Active 24 hr metoprolol succinate 50 mg extended release oral tablet (20 sources) beta-Adrenergic Renetta Start: 05-13-2023 End: 10-27-2023 take 2 tablets by mouth once daily before mealtime metoprolol succinate XL (Toprol-XL) 50 mg 24 hr tablet Take 2 tablets (100 mg) by mouth once daily in the morning. Take before meals. 0 05/13/2023 10/27/2023 Discontinued (Therapy completed) Start: 04-27-2023 take 1 tablet by kristen th once daily metoprolol 50 mg ER Tab 50 mg = 1 tab(s), Oral, Daily, High blood pressure Start Date: 07/04/23 Status: Ordered Start: 01-29-2022 End: 03-05-2023 take 0.5 tablet by mouth twice daily Metoprolol Succinate Discontinued 50 MG PO Daily January 28, 2022 11:00pm March 05, 2023 9:37am TAKE 1/2 TAB BID Start: 09-15-2017 End: 02-28-2021 take 1 tablet by mouth once daily in the morning Metoprolol Succinate (Toprol Xl) 100 mg tablet extended release 24 hr Discontinued 100 MG PO Every morning September 15, 2017 12:00am February 28, 2021 12:17pm take 1 tablet by mouth once daily metroNIDAZOLE 500 mg oral tablet (3 sources) Nitroimidazole Antimicrobial Start: 06-11-2024 End: 06-21-2024 take 1 tablet by mouth in the morning, then take 1 tablet by mouth in the evening, then take 1 tablet by mouth at bedtime metroNIDAZOLE (Flagyl) 500 MG tablet Indications: Diverticulitis of large intestine with bleeding, unspecified complication status Take 1 tablet (500 mg) by mouth in the morning and 1 tablet (500 mg) in the evening and 1 tablet (500 mg) before bedtime. Do all this for 10 days. 30 tablet 06/11/2024 06/21/2024 Active naltrexone hydrochloride 50 mg oral tablet (16 sources) Opioid Antagonist Start: 07-04-2023 take 1 tablet by mouth once daily naltrexone 50 mg oral tablet 50 mg = 1 tab(s), Oral, Daily, Neuropathy Start Date: 07/04/23 Status: Ordered Start: 04-27-2023 take 3 mg by mouth o nce daily at bedtime Naltrexone Active 3 MG PO Daily at bedtime April 26, 2023 11:00pm Start: 04-27-2023 take 1.5 mg by mouth once daily at bedtime Naltrexone Active 1.5 MG PO Daily at bedtime April 27, 2023 12:00am Start: 03-05-2023 End: 04-27-2023 take 50 mg by mouth at bedtime Naltrexone Discontinued 50 MG PO Bedtime March 04, 2023 11:00pm April 27, 2023 10:41am ondansetron 4 mg oral tablet (3 sources) Serotonin-3 Receptor Antagonist Start: 06-23-2023 take 4 mg by mouth every eight hours Ondansetron Hcl Active 4 MG PO Q8H 15 June 23, 2023 12:00am oxyCODONE hydrochloride 5 mg oral tablet (3 sources) Opioid Agonist Start: 06-23-2023 take 5 mg by mouth once daily Oxycodone Active 5 MG PO Daily 12 02June 23, 2023 pantoprazole 40 mg delayed release oral tablet (14 sources) Proton Pump Inhibitor Start: 03-16-2023 End: 06-01-2023 take 1 tablet by mouth once daily pantoprazole (ProtoNix) 40 mg EC tablet Take 1 tablet (40 mg) by mouth once daily. 0 03/16/2023 06/01/2023 Discontinued (Therapy completed) Start: 08-21-2022 End: 09-24-2022 take 1 tablet by mouth once daily Pantoprazole (Protonix) 40 mg tablet,delayed release (DR/EC) Discontinued 40 MG PO Daily 14 August 21, 2022 12:00am September 24, 2022 3:44pm predniSONE 20 mg oral tablet (2 sources) Start: 04-27-2023 End: 06-01-2023 take 1 tablet by mouth once daily predniSONE (Deltasone) 20 mg tablet Take 1 tablet (20 mg) by mouth once daily. 0 04/27/2023 06/01/2023 Discontinued (Therapy completed) Start: 04-27-2023 take 1 tablet by kristen th three times daily in the morning predniSONE 20 MG Oral Tablet Take 1 tablet 3 times daily for 2 days. Last dose AM of procedure Quantity: 7 Refills: 0 Ordered: 27-Apr-2023 López Galan DO Start : 27-Apr-2023 Active sotalol hydrochloride 80 mg oral tablet (17 sources) Antiarrhythmic Start: 10-27-2023 End: 12-10-2024 take 1 tablet by mouth in the morning sotalol (Betapace) 80 MG tablet Take 80 mg by mouth in the morning and 80 mg in the evening. 10/27/2023 10/26/2024 Active spironolactone 25 mg oral tablet (12 sources) Aldosterone Antagonist Start: 05-24-2023 End: 06-01-2023 take 1 tablet by mouth once daily spironolactone (Aldactone) 25 mg tablet Take 1 tablet (25 mg) by mouth once daily. 0 05/24/2023 06/01/2023 Discontinued (Therapy completed) Start: 01-25-2023 End: 05-01-2023 take 25 mg by mouth once daily Spironolactone Discontinued 25 MG PO Daily February 28, 2023 11:00pm May 01, 2023 7:46am tamsulosin hydrochloride 0.4 mg oral capsule (3 sources) alpha-Adrenergic Renetta Start: 06-23-2023 take 1 capsule by mouth once daily Tamsulosin (Flomax) 0.4 mg capsule Active 0.4 MG PO Daily June 23, 2023 12:00am topiramate 50 mg oral tablet (20 sources) Start: 01-24-2024 End: 04-25-2025 take 1 tablet by mouth in the morning topiramate 50 MG tablet Indications: Tremor Take 50 mg by mouth in the morning and 50 mg before bedtime. 180 tablet 3 04/25/2024 04/25/2025 Active Start: 03-01-2023 take 1 tablet by kristen th twice daily topiramate 50 mg Tab 50 mg = 1 tab(s), Oral, BID, Neuropathy Start Date: 07/04/23 Status: Ordered Start: 08-21-2022 End: 03-01-2023 take 25 mg by mouth twice daily Topiramate Discontinue d 25 MG PO Twice daily August 21, 2022 12:00am March 01, 2023 9:19am traMADol hydrochloride 50 mg oral tablet (1 source) Opioid Agonist Start: 07-29-2024 End: 08-03-2024 take 1-2 tablets by mouth every six hours for pain traMADol (Ultram) 50 MG tablet Indications: Pain of upper abdomen Take 1-2 tablets (50-100 mg) by mouth every 6 (six) hours if needed for severe pain for up to 5 days 20 tablet 07/29/2024 08/03/2024 Active traZODone hydrochloride 50 mg oral tablet (19 sources) Serotonin Reuptake Inhibitor Start: 10-16-2023 End: 05-02-2024 take 1 tablet by mouth at bedtime traZODone (Desyrel) 50 MG tablet Take 50 mg by mouth at bedtime 10/16/2023 05/02/2024 Discontinued (Therapy completed) Start: 01-31-2022 End: 08-21-2022 take 50 mg by mouth once daily at bedtime Trazodone Discontinued 50 MG PO Daily at bedtime January 30, 2022 11:00pm August 21, 2022 9:44am Completed/Discontinued Medications Medication Drug Class(es) Dates Sig (Normalized) Sig (Original) citalopram 40 mg oral tablet (10 sources) Serotonin Reuptake Inhibitor Start: 09-15-2017 End: 09-03-2018 take 1 tablet by mouth at bedtime Citalopram (Celexa) 40 mg tablet Discontinued 40 MG PO Bedtime September 15, 2017 12:00am September 03, 2018 10:14pm diphenhydrAMINE hydrochloride 25 mg oral tablet (3 sources) Histamine-1 Receptor Antagonist Start: 04-27-2023 End: 10-27-2023 Complete Allergy Medicine 25 mg tablet Take 1 tablet (25 mg) by mouth as needed at bedtime. 0 04/27/2023 10/27/2023 Discontinued (Other) DULoxetine 30 mg delayed release oral capsule (10 sources) Serotonin and Norepinephrine Reuptake Inhibitor Start: 01-31-2022 End: 09-24-2022 take 30 mg by mouth once daily Duloxetine Discontinued 30 MG PO Daily January 30, 2022 11:00pm September 24, 2022 3:44pm folic acid 0.4 mg oral tablet (10 sources) Start: 04-21-2022 End: 09-24-2022 take 400 ug by mouth once daily Folic Acid Discontinued 400 MCG PO Daily April 20, 2022 11:00pm September 24, 2022 3:42pm hydroCHLOROthiazide 25 mg / losartan potassium 100 mg oral tablet (10 sources) Thiazide Diuretic, Angiotensin 2 Receptor Renetta Start: 02-25-2021 End: 09-24-2022 take 1 tablet by mouth once daily in the morning Losartan-Hydroch lorothiazide (Hyzaar) 100-25 mg tablet Discontinued 1 TAB PO Every morning February 24, 2021 11:00pm September 24, 2022 3:42pm take 1 tablet by mouth once daily hydrOXYzine pamoate 50 mg oral capsule (10 sources) Antihistamine Start: 01-31-2022 End: 08-21-2022 take 50 mg by mouth every six hours Hydroxyzine Pamoate Discontinued 50 MG PO Q6H 30 January 30, 2022 11:00pm August 21, 2022 9:44am lisinopril 20 mg oral tablet (10 sources) Angiotensin Converting Enzyme Inhibitor Start: 09-15-2017 End: 09-03-2018 take 1 tablet by mouth once daily Lisinopril (Prinivil) 20 mg tablet Discontinued 20 MG PO Daily September 15, 2017 12:00am September 03, 2018 10:14pm Dgtowsme-Nej-Kr-Lycopen- Lutein (Centrum Silver) 0.4-300-250 mg-mcg-mcg Tablet (10 sources) Start: 09-15-2017 End: 09-03-2018 take 1 tablet by mouth once daily Gzasvlwb-Lso-Pj- Lycopen-Lutein (Centrum Silver) 0.4-300-250 mg-mcg-mcg Tablet Discontinued 1 TAB PO Daily September 15, 2017 1:00am September 03, 2018 11:14pm Start: 09-15-2017 End: 09-03-2018 take 1 tablet by mouth once daily Bdshbcsq-Znz-Nd-Lycopen-Lutein (Centrum Silver) 0.4-300-250 mg-mcg-mcg Tablet Discontinued 1 TAB PO Daily September 15, 2017 12:00am September 03, 2018 10:14pm 24 hr nitroglycerin 0.2 mg/hr transdermal system (3 sources) Nitrate Vasodilator Start: 05-27-2023 End: 10-27-2023 apply 0.2 mg transdermal route every hour nitroglycerin (Nitrodur) 0.2 mg/hr patch Place 1 patch on the skin once daily. 0 05/27/2023 10/27/2023 Discontinued (Other) Start: 04-27-2023 apply 1 dose transde rmal route once daily, then apply 1 dose transdermal route every twenty-four hours Nitroglycerin 0.2 MG/HR Transdermal Patch 24 Hour APPLY PATCH FOR 12 TO 14 HOURS DAILY, THEN REMOVE Quantity: 90 Refills: 3 Ordered: 27-Apr-2023 López Galan DO Start : 27-Apr-2023 Active sucralfate 1000 mg oral tablet (10 sources) Aluminum Complex Start: 08-21-2022 End: 09-24-2022 take 1 tablet by mouth every six hours Sucralfate (Carafate) 1 gram tablet Discontinued 1 GM PO Q6H 56 14 August 21, 2022 12:00am September 24, 2022 3:44pm tiZANidine 4 mg oral tablet (10 sources) Central alpha-2 Adrenergic Agonist Start: 08-21-2022 End: 09-24-2022 take 4 mg by mouth once daily at bedtime Tizanidine Discontinued 4 MG PO Daily at bedtime August 21, 2022 12:00am September 24, 2022 3:44pm 24 hr verapamil hydrochloride 240 mg extended release oral capsule (10 sources) Calcium Channel Renetta Start: 02-28-2021 End: 01-29-2022 take 240 mg by mouth once daily Verapamil Discontinued 240 MG PO Daily February 27, 2021 11:00pm January 29, 2022 1:31am Problems Active Problems Problem Classification Problem Date Documented Da te Episodic/Chronic Abdominal pain (20 sources) Abdominal pain; Translations: [Unspecified abdominal pain] Onset: 3 04-21-2022 Episodic Acute myocardial infarction (13 sources) Myocardial infarction; Translations: [Non-ST elevation (NSTEMI) myocardial infarction] Onset: 3 01-17-2023 Chronic Adjustment disorders (10 sources) Stress-related problem; Translations: [Reaction to severe stress, unspecified] 09-15-2017 Chronic Alcohol-related disorders (20 sources) Alcohol dependence; Translations: [Alcohol dependence, uncomplicated] Onset: 8 Resolved: 3 09-15-2017 Chronic Aortic; peripheral; and visceral artery aneurysms (20 sources) Aneurysm of iliac artery; Translations: [Abdominal aortic aneurysm without rupture] Onset: 3 01-17-2023 Chronic Cardiac dysrhythmias (20 sources) Ventricular tachycardia; Translations: [Ventricular tachycardia] Onset: 3 02-25-2021 Chronic Chronic obstructive pulmonary disease and bronchiectasis (20 sources) Acute exacerbation of chronic obstructive airways disease; Translations: [Chronic obstructive pulmonary disease with (acute) exacerbation] Onset: 3 01-17-2023 Chronic Diabetes mellitus without complication (20 sources) Type 2 diabetes mellitus without complication; Translations: [Diabetes mellitus without mention of complication, type II or unspecified type, not stated as uncontrolled] Onset: 3 06-01-2023 Chronic Disorders of lipid metabolism (20 sources) Hypercholesterolemia; Translations: [Mixed hyperlipidemia] Onset: 3 Resolved: 3 10-19-2021 Chronic Diverticulosis and diverticulitis (15 sources) Diverticulosis of sigmoid colon; Translations: [Diverticulosis of large intestine without perforation or abscess without bleeding] Onset: 3 01-17-2023 Chronic Essential hypertension (20 sources) Hypertensive disorder; Translations: [Essential (primary) hypertension] Onset: 3 Resolved: 3 10-19-2021 Chronic Gastrointestinal hemorrhage (2 sources) Gastrointestinal hemorrhage; Translations: [Hemorrhage of anus and rectum] 06-11-2024 Episodic Headache; including migraine (20 sources) Cluster headache; Translations: [Cluster headache syndrome, unspecified, not intractable] Onset: 3 10-19-2021 Chronic Hyperplasia of prostate (15 sources) Benign prostatic hypertrophy with outflow obstruction; Translations: [Benign prostatic hyperplasia with lower urinary tract symptoms] Onset: 4 Chronic Hypertension with complications and secondary hypertension (20 sources) Hypertensive left ventricular hypertrophy; Translations: [Hypertensive heart disease without heart failure] Onset: 3 01-17-2023 Chronic Influenza (9 sources) Influenza; Translations: [Influenza due to unidentified influenza virus with other respiratory manifestations] 09-24-2022 Episodic Open wounds of head; neck; and trunk (10 sources) Scalp laceration; Translations: [Laceration without foreign body of scalp, initial encounter] 02-25-2021 Episodic Other circulatory disease (10 sources) H/O: hypertension; Translations: [Personal history of other diseases of the circulatory system] 09-15-2017 Episodic Other diseases of kidney and ureters (3 sources) Hydronephrosis with renal and ureteral calculous obstruction; Translations: [Hydronephrosis with urinary obstruction due to renal calculus] 06-23-2023 Episodic Other gastrointestinal disorders (10 sources) Constipation; Translations: [Constipation, unspecified] 04-21-2022 Episodic Other hereditary and degenerative nervous system conditions (15 sources) Intention tremor; Translations: [Other specified forms of tremor] Onset: 3 01-17-2023 Chronic Other liver diseases (10 sources) Lesion of liver; Translations: [Liver disease, unspecified] 04-21-2022 Chronic Other nervous system disorders (1 source) Polyneuropathy, unspecified; Translations: [POLYNEUROPATHY UNSPECIFIED] Onset: 2 Chronic Other nervous system disorders (13 sources) Perineurial cyst; 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] Onset: 3 01-17-2023 Chronic Other nervous system disorders (16 sources) Polyneuropathy; Translations: [Polyneuropathy, unspecified] Onset: 3 01-17-2023 Chronic Other nervous system disorders (2 sources) Tremor; Translations: [Tremor, unspecified] 04-25-2024 Episodic Other nutritional; endocrine; and metabolic disorders (18 sources) Hypercalcemia; Translations: [Hypercalcemia] Onset: 3 06-01-2023 Chronic Pulmonary heart disease (13 sources) Pulmonary hypertension; Translations: [Pulmonary hypertension, unspecified] Onset: 3 01-17-2023 Chronic Residual codes; unclassified (13 sources) Sleep dysfunction with arousal disturbance; Translations: [Other sleep disorders] Onset: 3 01-17-2023 Chronic Residual codes; unclassified (9 sources) Body mass index 20-24 - normal; Translations: [Body Mass Index between 19-24, adult] Onset: 4 10-27-2023 Episodic Residual codes; unclassified (7 sources) History of radiofrequency ablation operation for arrhythmia; Translations: [Other specified postprocedural states] 01-12-2023 Episodic Residual codes; unclassified (2 sources) Other specified postprocedural states; Translations: [Personal history of surgery to heart and great vessels, presenting hazards to health] 01-13-2023 Episodic Residual codes; unclassified (6 sources) Current drinker; Translations: [Other specified health status] 03-01-2023 Episodic Residual codes; unclassified (2 sources) Body mass index (BMI) 22.0-22.9, adult; Translations: [Body mass index (BMI) 22.0-22.9, adult] Onset: 4 Episodic Residual codes; unclassified (1 source) H/O: Disorder; Translations: [Personal history of other specified conditions] Onset: 4 Episodic Spondylosis; intervertebral disc disorders; other back problems (20 sources) Lumbar arthritis; Translations: [Spondylosis without myelopathy or radiculopathy, lumbar region] Onset: 3 01-17-2023 Chronic Substance-related disorders (20 sources) Smoker; Translations: [Nicotine dependence, cigarettes, uncomplicated] Onset: 2 Resolved: 4 10-19-2021 Chronic Comment on above: Added secondary to d ocumentation in Social History. 1/2 ppd; Substance-related disorders (10 sources) Alcoholism; Translations: [Other psychoactive substance use, unspecified, uncomplicated] 01-29-2022 Episodic Suicide and intentional self-inflicted injury (18 sources) Intentional overdose of beta-adrenergic blocking drug; Translations: [Poisoning by beta-adrenoreceptor antagonists, intentional self-harm, initial encounter] Onset: 2 09-15-2017 Episodic Syncope (10 sources) Syncope; Translations: [Syncope and collapse] 02-25-2021 Episodic Unclassified (1 source) Unknown / UNK(Unknown) Onset: 8 Unclassified (1 source) CONTACT W/AND (SUSP) EXPOS COVID-19; Translations: [CONTACT W/AND (SUSP) EXPOS COVID-19] Onset: 2 Unclassified (1 source) Patient encounter status 01-17-2024 Past or Other Problems Problem Classification Problem Date Documented Da te Episodic/Chronic Anxiety disorders (13 sources) Anxiety; Translations: [Anxiety disorder, unspecified] Onset: 06-15-2015 Resolved: 05-23-2023 05-23-2023 Chronic Calculus of urinary tract (20 sources) Kidney stone; Translations: [Urinary bladder stone] Onset: 01-17-2023 Resolved: 05-23-2023 10-19-2021 Episodic Cardiac dysrhythmias (20 sources) Drug-induced bradycardia; Translations: [Bradycardia, unspecified] Onset: 06-01-2023 Resolved: 04-23-2024 09-15-2017 Episodic Conditions associated with dizziness or vertigo (13 sources) Dizziness and giddiness; Translations: [Dizziness and giddiness] Onset: 09-08-2004 03-23-2023 Episodic E Codes: Unspecified (1 source) Blood alcohol level of 120-199 mg/100 ml; Translations: [BLOOD ALCOHOL LVL 120-199 MG/100 ML] Onset: 02-02-2022 Episodic Epilepsy; convulsions (20 sources) Seizure; Translations: [Unspecified convulsions] Onset: 03-23-2023 02-25-2021 Episodic Genitourinary symptoms and ill-defined conditions (20 sources) Blood in urine; Translations: [Gross hematuria] Onset: 01-17-2023 Episodic Immunizations and screening for infectious disease (1 source) Encounter for immunization; Translations: [ENCOUNTER FOR IMMUNIZATION] Onset: 02-02-2022 Episodic Malaise and fatigue (13 sources) Asthenia; Translations: [Weakness] Onset: 01-17-2023 Resolved: 05-23-2023 05-23-2023 Episodic Mood disorders (20 sources) Acute depression; Translations: [Depressive disorder] Onset: 02-02-2022 Resolved: 05-23-2023 10-19-2021 Chronic Nonspecific chest pain (20 sources) Chest pain; Translations: [Chest pain, unspecified] Onset: 02-06-2023 02-25-2021 Episodic Other aftercare (1 source) half-way (current) use of aspirin; Translations: [ALF CURRENT USE OF ASPIRIN] Onset: 02-02-2022 Episodic Other aftercare (1 source) Other half-way (current) drug therapy; Translations: [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] Onset: 02-02-2022 Episodic Other aftercare (15 sources) Polypharmacy ; Translations: [Other terminal superintendent (current) drug therapy] Onset: 12-02-2023 12-02-2023 Episodic Other connective tissue disease (13 sources) Neurogenic claudication; Translations: [Other symptoms and signs involving the nervous system] Onset: 01-17-2023 01-17-2023 Episodic Other ear and sense organ disorders (13 sources) Subjective tinnitus; Translations: [Tinnitus, unspecified ear] Onset: 09-08-2004 Resolved: 05-23-2023 05-23-2023 Episodic Other nervous system disorders (13 sources) Skin sensation disturbance; Translations: [Unspecified disturbances of skin sensation] Onset: 01-17-2023 01-17-2023 Episodic Other nervous system disorders (13 sources) Hyperreflexia; Translations: [Abnormal reflex] Onset: 01-17-2023 01-17-2023 Episodic Other nervous system disorders (13 sources) Ataxia; Translations: [Ataxia, unspecified] Onset: 01-17-2023 Resolved: 05-23-2023 05-23-2023 Episodic Other screening for suspected conditions (not mental disorders or infectious disease) (20 sources) Echocardiogram abnormal; Translations: [Nonspecific (abnormal) findings on radiological and other examination of other intrathoracic organs] Onset: 06-01-2023 Resolved: 04-23-2024 05-01-2023 Episodic Peripheral and visceral atherosclerosis (13 sources) Abdominal aortic atherosclerosis; Translations: [Atherosclerosis of aorta] Onset: 01-17-2023 Resolved: 05-25-2023 05-25-2023 Chronic Residual codes; unclassified (13 sources) History of hematuria; Translations: [Personal history of other specified conditions] Onset: 01-24-2024 01-24-2024 Episodic Residual codes; unclassified (13 sources) Other specified personal risk factors, not elsewhere classified; Translations: [Other specified personal history presenting hazards to health] Onset: 03-23-2023 Resolved: 05-23-2023 05-23-2023 Episodic Spondylosis; intervertebral disc disorders; other back problems (20 sources) Lumbar radiculopathy; Translations: [Radiculopathy, lumbar region] Onset: 01-17-2023 01-17-2023 Episodic Superficial injury; contusion (1 source) Abrasion of abdominal wall, initial encounter; Translations: [ABRASION ABDOMINAL WALL INITIAL ENC] Onset: 02-02-2022 Episodic Unclassified (3 sources) Onset: 10-27-2023 10-27-2023 Results Test Name Value Interpretation Reference Range Facility ALL CBC WITH AUTO DIFFon BASOPHILS ABSOLUTE AUTO 0 [facility] Basophils/100 WBC (Bld) 0.4 % 0.2 - 2.0 % [facility] Eosinophils/100 WBC (Bld) 1.3 % 0.9 - 7.0 % [facility] Erythrocyte distribution width (RBC) [Ratio] 11.5 % 11.0 - 15.0 % [facility] Hematocrit (Bld) [Volume fraction] 50.5 % 42.0 - 54.0 % [facility] Hemoglobin (Bld) [Mass/Vol] 18.1 g/dL High 14.0 - 18.0 g/dL [facility] IMMATURE GRANULOCYTES ABS AUTO 0.01 [facility] Immature granulocytes/100 WBC (Bld) 0.2 % 0.0 - 0.5 % [facility] Interpretation and review of laboratory results Abnormal [facility] LYMPHOCYTES ABSOLUTE AUTO 2 [facility] Lymphocytes/100 WBC (Bld) 44.7 % 20.5 - 60.0 % [facility] MCH (RBC) [Entitic mass] 33.8 pg 25.9 - 34.0 pg [facility] MCHC (RBC) [Mass/Vol] 35.8 g/dL High 29.9 - 35.2 g/dL [facility] MCV (RBC) [Entitic vol] 94.2 fL High 80.0 - 94.0 fL [facility] MONOCYTES ABSOLUTE AUTO 0.7 [facility] Monocytes/100 WBC (Bld) 15.1 % High 1.7 - 12.0 % [facility] NEUTROPHILS ABSOLUTE AUTO 1.7 [facility] Neutrophils/100 WBC (Bld) 38.3 % Low 43.0 - 75.0 % [facility] Platelet mean volume (Bld) [Entitic vol] 10.8 f[facility] 9.5 - [facility] PLT 144 Low [facility] RBC 5.36 [facility] WBC 4.5 [facility] ALL CBC WITH AUTO DIFFon BASOPHILS ABSOLUTE AUTO 0 [facility] Basophils/100 WBC (Bld) 0.6 % 0.2 - 2.0 % [facility] Eosinophils/100 WBC (Bld) 2.2 % 0.9 - 7.0 % [facility] Erythrocyte distribution width (RBC) [Ratio] 11.5 % 11.0 - 15.0 % [facility] Hematocrit (Bld) [Volume fraction] 45 % 42.0 - 54.0 % [facility] Hemoglobin (Bld) [Mass/Vol] 15.5 g/dL 14.0 - 18.0 g/dL [facility] IMMATURE GRANULOCYTES ABS AUTO 0.02 [facility] Immature granulocytes/100 WBC (Bld) 0.3 % 0.0 - 0.5 % [facility] Interpretation and review of laboratory results Abnormal [facility] LYMPHOCYTES ABSOLUTE AUTO 2 [facility] Lymphocytes/100 WBC (Bld) 27.8 % 20.5 - 60.0 % [facility] MCH (RBC) [Entitic mass] 33.3 pg 25.9 - 34.0 pg [facility] MCHC (RBC) [Mass/Vol] 34.4 g/dL 29.9 - 35.2 g/dL [facility] MCV (RBC) [Entitic vol] 96.6 fL High 80.0 - 94.0 fL [facility] MONOCYTES ABSOLUTE AUTO 0.5 [facility] Monocytes/100 WBC (Bld) 7.4 % 1.7 - 12.0 % [facility] NEUTROPHILS ABSOLUTE AUTO 4.5 [facility] Neutrophils/100 WBC (Bld) 61.7 % 43.0 - 75.0 % [facility] Platelet mean volume (Bld) [Entitic vol] 10.7 fL 9.5 - 13.5 fL [facility]H EO # 0.2 [facility] PLT 189 [facility] TB RBC 4.66 Low [facility] TB WBC 7.3 [facility] Coding Summary.on 01-23-2024 Coding Summary. LDWSFtqj32YKm6lPh+PG hlYWQ +SZ3FOHTdH41zaIMuyU3iP1OC TElOSywgQVBQTElOSyIgbmFtZ S9xqNGmPRDw IC8+HF6rBVBhFicmsHOrr7Z3r NL7N60tlg2lDSdgoTA8EOYsZj Lwpgkwd3hvmMr3XSkaRhriOqB t NDVnuB58WAT9xS27Fa04eKZjw CGtz8cpbKt9GlTzBBBoBAO8oT ipUGvmk7JwGPJtU29wvCEtv0X 6 KYUslOrkkCLjYlKszXO9rF7xC Fzwqplxz4mwhomoXpy4jn47cU Hem6M0tRZ4K7HkxzK2HMPmpET g JfcvsBRImM3aawlbu8yjqmhoC qQyCMNaNDr6EZk2RODqiMahYn QiNB14OHM7TLNphoTtI7IaXUJ s wUsuJkG6q7Q6Fw1PS2TTXutrY 1VNTUFSWTwvdGQ+QH17sb02E7 PgPfybMqy1PGEvAUS5pEJ1aS4 n POUiRZgej2K6cPP1L5IwpqGzy a5uq5gbXDNcKHsoI11mqBJqi4 A9ESMweBU4AVEvqEmfYiIfrO8 3 Oyc+WRKppCtnw3JiVoyej8ler 5wrfCj2BebeJCUjreZnoNtiJC F7f9TmVc8cHRQbnIC3uFR1xR4 i SbDcEpD8UQmkJ502MjLidGDkW occX66kX8GicJQ+SHZtAtd3EF MovIixQB7gA0VzNLBnbgzwjSJ m tAgcZB6iZEUgrkusNDGhsK3cN QSsP2x5FbIyWqB1CEyjR3HqFN HejmfbMo19nF7vViAoQsX6OZh u C6AipxB4ZFAwpLOdYYkjTTA9F 18qf1S6YSHnJWRhQXV8zCY6wU 1hbGlnbjogbGVmdDsgdmVydGl j COiiCLxuR902ISMnkYpsCiSkL GluZyBEYXRlOiAgMDYvMjUvMj AyNDwvdGQ+RXQuZEJ0aJqhFYS n pMItUSicUj3bzWgvjPpfGJ2mD IQggvzoUTQqjN8yYPJheVRteH hxLJ5rOEXcozzed818TrUkUDZ 0 LSZkhVTiF2PjpZ9uIaCvQAUiS WNwS6LqgYDdESknX979VFqtYj S9BSVatpVuH9DzTAZxuNyyNzD 0 w6T8Ta1Qm1TzssriV2HzjFQxH gWaMhozAQl8Z9EbGqftwRJ+PC 75ASRjPW77YTk7WHH8lZnrHJp i MCWzC3YokC7zIoIwJBGnHMXzU yc+PHRhYmxlIHdpZHRoPScxMD PsWwIkeVvqDD3oJh6fGCQmTSD v mMypyXAgRqVil8shQTQjDDiqF C8fjLagS2TozJU6MEFmj2i5Hn 02K86wN8CtuKY+TGTwoZT2uES 0 wE3kQpExWsC9UHgiA299OfSas JVwWxrab9atw2qfuHd3XfE5MC JfuoYvpPdfISF7q5OdFl60E74 s IHdpZHRoPSIxNSUiIHZhbGlnb y3ooU0qWw3+OTDwcBR3aUD8jW 7uIrLbJyL5GCcxR481OcNgzCU v Mdrgz2mgb3gosWe7ThTpJPAld tUgwSolZNW9m5WwOe68F6FlnX oes3IgPdc4dw60xGQis3J7qFV 9 R6CbSHOylswfjYWgxHzlXX8xV YUzvycqJXIlxM7qJEIpN4d3Kh FnTiW0WQytK9MxvxH3BBKeyGQ g MTLzoLTDwJ3nppptk4fllpelD uYpZOGiJVm4GAa7PELrbTicJy JhUVF3GcJ6OAX6vKAvrP8ppXt n vhjdhQ2wWiy+LBT0lWSvpPHSS L3xKxvcoTV+KVPfNZH8dOgjGY rzRVBhiS6uJCKzX8i9OrAhDxM 1 HYtzQ7HyyjA9HZZcgBKeYHIdh PIZsJ0dopiyf1sarrzuKrUhMJ NlFXq3RYk5JHDwbZvrAsGcLMI 0 WqJ8UJR5rVLpzT3lbNrnnjqvw G9wOyc+AaddxQmnQAV5GQl1T0 DaDyo0EKJnuIlgDF5taZFiCAm u Vw1yaJkwrMbhGX6qKFIafcaov 577FkOap8mwNCMsrJQmDApmMI R1M90up8X6YGTlELXoRQR5hOM 4 zB8ovFquagisbXHmgAzmhaRgx RnmTHlaNVikD694BTRhmBmtZm ZvTFe9I6BpKvj8PQKmcRzuCR6 n vSBaAZsjUp3jsPjozIjoUV0sR ZYgbpyxl413LpKwo1arUIEagU IvBKnqFWS8U47gu2G0USGfOAL w UFI1iQX4yN7jcOildtsnwQHcj WfshbNbyFtwZEqmKQznG419UG PwiRkxPsBseQr3O7WkZpf4MZW z oXtnQV9kkLXgVDuaMq0ckOcig PzdPH7tQBLyuifto409GeVjl7 kaWHGroVJiBXrcJFX7C74bz2G 6 YGPnLVKkXZP2sQP0rA8qnDekg jogbGVmdDsgdmVydGljYWwtYW jgT360ASRvhUlsPfVocQtecoJ g TXvwQJc5A1SzLxniyZB+PC90Y ZGeNB02kCQoxTYeb4jgkOg5Xc FgPFBsDAP6mLmaJRhgu7AnEOY t F31inLCsa7Q7VIUtzAhaxTXmX aMwfJH2wQ9wPEyxeayfz3mrmt wnRwphr7kchh39tS35Y27uBPr p DYCpAMUiQMPqDKEuaNdfsn8ak G9wIi8+NVAawBT9qZN1bG9bVB TbCaM2LEhrL496HzVrkRLlRck j i4ilh4nnzFi0GlB2IZQqetJlu KzhPVB7b9VwNy91O84fYJbmUB CjGJVxEKBpWVNxmSqpfi7jbM1 w Ii8+GJFucFY1qYO3mE6rLuAjW gT3OWuaY549QlAosHUnBcqgT7 7lG0KlpFJ+UAGuRbl5GCTldPr s YN6nrAWbYUqjLv3dESD5ObTeT pDgBCsgV9SaDBFefvkfrvkwtA Z2UIPsVYKqrM58Bm9nyMunXQC w dCHQeM6macpja0yyfsvqUzXcI ZMtUMg0PYx4LQAruPqbUlQlWJ F2FkE4QWP1zDTfrR6rmOooqmy g tV4vG2MgVRKdrbaxHo85sG2bW bXdGzQ6BOunXkg+RkFSUkFSLC UBH2KAPVbgAVlmbVH+PHRkIHN 0 uDwaHDpuOREgkV2qHSYhX9n3A mZoZnA9OBbaY6OuIUXiolvhMy 17aO0vIcIpZhG2DHflL2LyeeB 6 QNXhiRSrXBrnTKX2V96rg3F2U KLsNJPmCPB8hPD1mO0agQcqvt ogbGVmdDsgdmVydGljYWwtYWx p L529APZmsXlqKcHnXtZ3QoJ5Z fS5E6JbSgr3RRDdvBmzDP1skM SrERayDq7eeQxbzSvpFP0cEIR p oqpaHMTysL1hNOJneGBaqGlhU R9iGBGdjxqrn477FgBbKPV4JI WfyTDbW7SapC1bOcAzOLLwFGT w D0NuzEVtTBxjD266ZEnrFnK9Z PXubnOxF9JiGVDluXfrYdZ1f7 L1Uh76IAIGPSUpvgrwuRT+PHR k BWE0eQcmZMzgXYTydU2xNPEbO 9a0HrEyPvW1VDraE3VlHEKzax khQc91zW6zCyKlUkT5RTcrU8U v xqR3SIZnhAAuNHqfLBO9Y99zk 1D1UEYqNRKoAOW7hVY7hI4haV lnbjogbGVmdDsgdmVydGljYWw t TKjoS582TXUypEyjTt8oaYP2X 4NqTmf7EMCamGovHF2omHTkKD dtLk3hiYeqlTsxQN4zUUJwnvx w ZTUizM2hZHLvdNRknJjcUI8fF OIdjcdvg593VaXeVUF0SEOsqH OyP7GdoV5dCkYlLITlFIIpR0Z l dLIiMIfhX244ACvrWlQ7LGNnf zSrD2FvAEUwhPslEqR0c5S9Sn 3ToYFyZGZwSU90FW52KO88B0S y PjwvdGFibGU+PHRhYmxlIHdpZ MQoEAwnIRQpMoCgmFcbCY2sLv 3mSNCjVMKtiDdpuZVoTqUtc3m s UHPsPVdrMA8hlGriI4CgbFN3B VDfm5m7Dv59J43aW6BamRR+PG DoqAO6dWK7jZ9lYsFxKqZ4DJk p M163YgBhsVFpRnrby0fzw1qbf Df4UkCzHNGzeqOldAiuNPJ8w2 WlHp64Y97mLQujRUSqEISgBUI i OHMjpKfcae5auH0rYw0+PGNvb PE8eQJ9sI4bUlQlCiL6IDjvD8 19BlZosIJlOqmrX09aQ8DfySO + EXIfCzq0ULJfdIokBC5dmCNsA YtxJy5wOVR9SoXlCbNfZIcfC8 BiMWStralphvysjVZ4LHQeVJW w hD43Ot6gcOgnFs4zCBLbARL5Y MGteMGjS8SdxL3lQsPjPSVtQH KwU6EcnCNlDOgmU562WBgfGtY 7 NMXiajZqE6TjNDPznTihAtY5j 8P2Op7UoHwwpAFkFK2pRaOxIA i9M3LvKzk1TIEjrZzmEN1zfQK k WKqnXr0nxPvdpNuwGW2nQIHns ofig864SfDtp6akXOSwgPMyDU tpZLT1D80tl5U0LCJcCTBgEXW 7 mDS3aH7zeViawzvmbNEqbFkbn fKafWqyYUndQQquK908WYHejO lfGwXHYjo4U3ArXuz3PYQldWy s LO3twVXiOVnzKf3mcUprcBbeM U9eYHTpwxehd219GmCmk2saAS VyxHKtFEuhZVR6P97qh2D8FNP w UTIkWCU2rZE7bU8vsAqeobeab GVmdDsgdmVydGljYWwtYWxpZ2 98KLWpnPbmIc4VSna5A8VrOvi 0 WQGkiUisRA5tbDMnYZgxEu0na PfinOwxUK4vIMKuydzvm008Et Lsp9bkFNJcvVJqPPujHFN4O80 s e0A7JJZxRXOaECN4rZP7dQ7kr GlnbjogbGVmdDsgdmVydGljYW zrBWhmK888DHSmpPhmXlJlnQX y OjwvdGQ+DF51dj73Y4PnUehpJ rm9WCKaLRY5fPK3xK1aQRZvGL hsr8Z2wUZ5G3YzzoYxkf0ps0q s YROwZWswC89ap (more content not included)... Normal [facility] Screenson 01-18-2024 Screens [id number] Normal [facility] XR Abdomen 1 Viewon 01-18-20 24 XR Abdomen 1 View Exam Date/Time: 01/15/2024 10:10 EDT Reason for Exam: N20.0;Kidney stone Report IMPRESSION: NO URINARY TRACT CALCULI IDENTIFIED, BY PLAIN RADIOGRAPHY. EXAM: XR Abdomen 1 View DATE: 01/15/2024 10:00 AM CLINICAL HISTORY: Kidney stone, N20.0. COMPARISON: 07/20/2023. TECHNIQUE: Two supine radiographs of the abdomen and pelvis were obtained. FINDINGS: No definite urinary tract calculi identified overlying the renal shadows, expected courses of either ureter or urinary bladder. Two small within the inferolateral right hemipelvis and streaky iliofemoral atherosclerotic calcifications are again noted. There is a nonobstructive bowel gas pattern. Mild gas and stool are noted in the colon and rectum. The visualized lung bases are clear. Mild dextroscoliosis of the lumbar spine appears similar. Surgical clips from previous cholecystectomy are again noted. Ordering Provider: Víctor BRADY FINAL REPORT Dictated: 01/18/2024 4:43 pm Nigel Mendoza MD Signed (Electronic Signature): 01/18/2024 4:43 pm Signed by: Nigel Mendoza MD Transcribed by: LULA Technologist: DPR Technical Comments Radiation Dose: Ka,r in mGy = . DAP = . Normal [facility] Ambulatory Visit Summaryon 0 01-17-2024 Ambulatory Visit Summary FREEDOM RODGERS :1960 Visit Date:01/17/2024 Ambulatory Visit Instructions Your Diagnosis Ureteral stone BPH with urinary obstruction History of gross hematuria Your Care Team Attending Physician - Víctor BRADY MD Primary Care Physician - ARCHIE HOOKS MD This Is Your Medications List ciprofloxacin (Cipro 500 mg Tab) Contact prescribing physician if questions or concerns Misc Prescription (BIOTIN 10,000 MCG SOFTGEL) apixaban (Eliquis 5 mg oral tablet) atorvastatin (atorvastatin 80 mg Tab) biotin desvenlafaxine (desvenlafaxine 25 mg oral tablet, extended release) gabapentin (gabapentin 400 mg Cap) losartan (losartan 100 mg Tab) magnesium oxide (magnesium oxide 400 mg Tab) metoprolol (metoprolol 50 mg ER Tab) naltrexone (naltrexone 50 mg oral tablet) topiramate (topiramate 50 mg Tab) Procedures Performed Cystoscopy (07/20/2023), Tonsillectomy and adenoidectomy (07/31/1970), Ablation, Colonoscopy, Nerve graft. Discharge Vitals Height 184 cm Height 72 in Weight 78.7 kg Weight 173.14 lb BMI 23.25 What to do next Scheduled Follow-Up Appointments Monday 9:15 AM EDT With: Víctor BRADY MD Where: [facility] Patient Educationon 01-17-20 Patient Education Urology Benign Prostatic Hyperplasia Benign prostatic hyperplasia (BPH) is an enlarged prostate gland that is caused by the normal aging process. The prostate may get bigger as a man gets older. The condition is not caused by cancer. The prostate is a walnut-sized gland that is involved in the production of semen. It is located in front of the rectum and below the bladder. The bladder stores urine. The urethra carries stored urine out of the body. An enlarged prostate can press on the urethra. This can make it harder to pass urine. The buildup of urine in the bladder can cause infection. Back pressure and infection may progress to bladder damage and kidney (renal) failure. What are the causes? This condition is part of the normal aging process. However, not all men develop problems from this condition. If the prostate enlarges away from the urethra, urine flow will not be blocked. If it enlarges toward the urethra and compresses it, there will be problems passing urine. What increases the risk? This condition is more likely to develop in men older than 50 years. What are the signs or symptoms? Symptoms of this condition include: ? Getting up often during the night to urinate. ? Needing to urinate frequently during the day. ? Difficulty starting urine flow. ? Decrease in size and strength of your urine stream. ? Leaking (dribbling) after urinating. ? Inability to pass urine. This needs immediate treatment. ? Inability to completely empty your bladder. ? Pain when you pass urine. This is more common if there is also an infection. ? Urinary tract infection (UTI). How is this diagnosed? This condition is diagnosed based on your medical history, a physical exam, and your symptoms. Tests will also be done, such as: ? A post-void bladder scan. This measures any amount of urine that may remain in your bladder after you finish urinating. ? A digital rectal exam. In a rectal exam, your health care provider checks your prostate by putting a lubricated, gloved finger into your rectum to feel the back of your prostate gland. This exam detects the size of your gland and any abnormal lumps or growths. ? An exam of your urine (urinalysis). ? A prostate specific antigen (PSA) screening. This is a blood test used to screen for prostate cancer. ? An ultrasound. This test uses sound waves to electronically produce a picture of your prostate gland. Your health care provider may refer you to a specialist in kidney and prostate diseases (urologist). How is this treated? Once symptoms begin, your health care provider will monitor your condition (active surveillance or watchful waiting). Treatment for this condition will depend on the severity of your condition. Treatment may include: ? Observation and yearly exams. This may be the only treatment needed if your condition and symptoms are mild. ? Medicines to relieve your symptoms, including: ? Medicines to shrink the prostate. ? Medicines to relax the muscle of the prostate. ? Surgery in severe cases. Surgery may include: ? Prostatectomy. In this procedure, the prostate tissue is removed completely through an open incision or with a laparoscope or robotics. ? Transurethral resection of the prostate (TURP). In this procedure, a tool is inserted through the opening at the tip of the penis (urethra). It is used to cut away tissue of the inner core of the prostate. The pieces are removed through the same opening of the penis. This removes the blockage. ? Transurethral incision (TUIP). In this procedure, small cuts are made in the prostate. This lessens the prostate's pressure on the urethra. ? Transurethral microwave thermotherapy (TUMT). This procedure uses microwaves to create heat. The heat destroys and removes a small amount of prostate tissue. ? Transurethral needle ablation (TUNA). This procedure uses radio frequencies to destroy and remove a small amount of prostate tissue. ? Interstitial laser coagulation (ILC). This procedure uses a laser to destroy and remove a small amount of prostate tissue. ? Transurethral electrovaporization (TUVP). This procedure uses electrodes to destroy and remove a small amount of prostate tissue. ? Prostatic urethral lift. This procedure inserts an implant to push the lobes of the prostate away from the urethra. Follow these instructions at home: ? Take [id number] and prescription medicines only as told by your health care provider. ? Monitor your symptoms for any changes. Contact your health care provider with any changes. ? Avoid drinking large amounts of liquid before going to bed or out in public. ? Avoid or reduce how much caffeine or alcohol you drink. ? Give yourself time when you urinate. ? Keep all follow-up visits. This is important. Contact a health care provider if: ? You have unexplained back pain. ? Your symptoms do not get better with treatment. ? You develop side effects from the medicine (more content not included)... Normal [facility] Urology Office/Clinic Noteon 01-17-2024 Urology Office/Clinic Note Chief Complaint 6 month with KUB HPI Staff 63 year old male here for 6 month with KUB. Previous DX: ureteral stone, gross hematuria. KUB 01/15/24. Dysuria: occasionally will have some burning Incomplete bladder emptying: no Hematuria: UA shows large today Frequency: 2 hours or longer Urgency: occasionally Nocturia: 2x's Stream: Pt. states stream is ruddy weak Post void dripping: occasionally Wearing pads/ Depends: no Urge incontinence: no Stress incontinence: no Incontinence without Sensory Awareness: no Abdominal pain: no Flank pain: lower occasionally History of Present Illness Tests reviewed: reviewed UA and KUB image. I have reviewed the previous health record information and history for this patient from Dr. Brady. I have reviewed and verified the staff HPI to be accurate for this encounter. There have been no associated fever, chills, flank pain, or blood in the urine. Denies any urinary infections since last encounter. Review of Systems PHQ Score Initial Depression Screen Score: 0 SCORE ROS - Provider Constitutional: denies weight loss, denies hot flashes. Eyes: denies eye problems. Gastrointestinal: denies nausea, denies vomiting. Cardiovascular: denies chest pain or angina. Integumentary: no dryness Musculoskeletal: denies musculoskeletal symptoms. ENMT: denies otolaryngeal symptoms. Respiratory: no shortness of breath. Heme/Lymph: denies easy bleeding tendency, denies easy bruising tendency. Psychiatric: no confusion, no anxiety. Genitourinary: See HPI. Physical Exam Vitals & Measurements HT: 72 in HT: 184 cm WT: 78.7 kg WT: 173.14 lb BMI: 23.25 General Appearance: alert, no distress, well nourished, well developed male. Assessment/Plan IPSS 20 (24) Portions of this record may have been created with voice recognition artificial intelligence software, specifically [employer], [employer] and or [employer]. Substitutions may have occurred due to the inherent limitations of voice recognition and artificial intelligence software. 1. Ureteral stone (N20.1: Calculus of ureter) None seen on current KUB. No stones were identified overlying the proposed outline of the kidneys to my review. [facility] [place] ER f/u to a visit from 06/23/23 c/o Lt lower abdominal pain. CT AP w/o Con 06/23/23 - punctate BL stones with a 2-3mm obstructing stone in the Lt UPJ w/ moderate hydro, there is a 3x7mm stone posteriorly in the bladder. Labs 06/23/23 - BUN 18, Crea 1.16 [facility] [place] ER on 06/28/23 c/o worsening pain in his suprapubic pain, the oxycodone was not helping with pain. KUB 06/28/23 - one suspected stone at the Lt kidney, no definite stones on the Rt, small calcification overlaying the Lt sacrum measuring 3mm, question of interval migration of proximal Lt ureteral stone down to the level of the sacrum, no other suspected ureteral stones. Labs 06/28/23 - BUN 11, Crea 0.89 KUB 01/15/24 [facility] [place]. Upon personal review, there are no obvious stones id'd. Denies pain or passage of stones since last encounter. Will cont to monitor with repeat KUB in 1 year. 2. BPH with urinary obstruction (N40.1: Benign prostatic hyperplasia with lower urinary tract symptoms) PSA checked by PCP. S/p cysto (at the time of ureteroscopy for #1)moderately obstructing in the lateral lobes. 3-1/2 cm long. IPSS 20 (24) States he is not happy with urination. C/o weak stream, post void dribbling, and getting up twice during the night. Prefers to avoid new medications due to extensive list he is already taking. Discussed medication management and surgical management. Pt understands that if he elects to start a new med it can always be stopped if he does not have improvement. -Start Alfuzosin 10mg ER qd -Monitor for SEs, call with an update, stop med after 1-2 wks if no improvement -Literature provided on [employer] and REZUM 3. History of gross hematuria (Z87.898: Personal history of other specified conditions) Saw blood 06/23/23 prior to going to the ER. No recurrence. See #1. UA today shows large blood. Overall the patient is having some increased bladder outlet obstructive and irritative voiding symptoms, scoring a 20 on his IPSS score sheet. We discussed all the options including procedural intervention versus medication management and he chooses the latter. Possible side effects discussed. Prescription sent. He can certainly notify me by phone over the next 4 to 6 weeks regarding success with this medication. He can always change his mind and go forward with procedural intervention. He agrees with the plan Follow-up With When Contact Information Víctor BRADY MD, URL [address] [place] [id number]- Additional Instructions: 1 year w/ KUB Patient Education Benign Prostatic Hyperplasia I, Sofy Guzman, personally scribed for Dr. Brady on 01/17/2024 11:08:17. . Documenta (more content not included)... Normal [facility] Comment on above: Result Comment: Elec tronically Signed By: Víctor BRADY MD\.br\Date and Time Signed: 01/17/24 11:50 EDT\.br\Electronically Co-Signed By: Sofy Guzman\.br\Date and Time Co-Signed: 01/17/24 11:08 EDT Consent for Treatmenton 12-29 Consent for Treatment [id number]#[id number] Normal [facility] ECG 12 Leadon 12-11-2023 Sinus bradycardia Otherwise normal EKG QTc 449 ms [facility] Work Phone: ECG 12 Leadon 10-28-2023 [facility] Work Phone: IntraOperative Documentson 0 08-03-2023 IntraOperative Documents [id number]#[id number] Normal [facility] Calculus Analysison 07-28-20 Calcium oxalate monohydrate (Stone) [Mass fraction] 40 % Invalid Interpretation Code [facility] Comment on above: Order Comment: BLADD ER CALCULUS Performed By: #### 1 [id number] ####[facility] [address] [place] [address] Calculus analysis [Interp] Comment Invalid Interpretation Code [facility] Comment on above: Order Comment: BLADD ER CALCULUS Result Comment: Calc ium phosphate (hydroxyl form) includes hydroxyapatite, amorphous calcium phosphate, and whitlockite. Hydroxyapatite is the most common of the calcium phosphate salts found in human kidney stones. Performed By: #### 1 [id number] ####[address] [place] [address] Color (Stone) Patel Invalid Interpretation Code [facility] Comment on above: Order Comment: BLADD ER CALCULUS Performed By: #### 1 [id number] ####[facility] [address] [place] [address] Composition Comment Invalid Interpretation Code [facility] Comment on above: Order Comment: BLADD ER CALCULUS Result Comment: Perc entage (Represents the % composition) Performed By: #### 1 [id number] ####[facility] [address] [place] [address] Disclaimer: Comment Invalid Interpretation Code [facility] Comment on above: Order Comment: BLADD ER CALCULUS Result Comment: This test was developed and its performance characteristics determined by [facility]. It has not been cleared or approved by the Food and Drug Administration. Performed at: [address] [id number] PhD Sosa Yun Performed By: #### 1 [id number] ####[facility] [address] [place] [address] Hydroxyapatite: 60 % Invalid Interpretation Code [facility] Comment on above: Order Comment: BLADD ER CALCULUS Performed By: #### 1 [id number] ####[facility] [address] [place] [address] Laboratory comment Talha (Report) Comment Invalid Interpretation Code [facility] Comment on above: Order Comment: BLADD ER CALCULUS Result Comment: Karina donahue questions regarding Calculi Analysis contact [facility] at: [phone]. Performed By: #### 1 [id number] ####[address] [address] Please Note: Comment Invalid Interpretation Code [facility] Comment on above: Order Comment: BLADD ER CALCULUS Result Comment: Calc karthikeyan report will follow via computer, mail or jewish history professor delivery. Performed By: #### 1 [id number] ####[place] [address] [place] [address] Size (Stone) [Entitic vol] 4x4 Invalid Interpretation Code [facility] Comment on above: Order Comment: BLADD ER CALCULUS Result Comment: Sing le piece received. Performed By: #### 1 [id number] ####[address] [address] Specimen source subject Nom Comment Invalid Interpretation Code [facility] Comment on above: Order Comment: BLADD ER CALCULUS Result Comment: Not provided Performed By: #### 1 [id number] ####[place] [place] [address] Stone Photo Comment Invalid Interpretation Code [facility] Comment on above: Order Comment: BLADD ER CALCULUS Result Comment: Phot ograph will follow under a separate cover Performed By: #### 1 [id number] ####[address] [place] [address] Weight (Stone) 14.0 mg Invalid Interpretation Code [facility] Comment on above: Order Comment: BLADD ER CALCULUS Performed By: #### 1 [id number] ####[place] [address] [place] [address] Postoperative Documentson Postoperative Documents [id number] Normal [facility] Main OR Intraoperative Recor don 07-25-2023 Main OR Intraoperative Record IntraOp Document Type FT Summary Primary Physician: Víctor BRADY MD Finalized Date/Time: 07/25/23 12:30:04 Pt. Name: FREEDOM RODGERS /Sex: 1960 Male Med Rec #: [id number] Physician: Víctor BRADY MD Financial #: [id number] Pt. Type: A Room/Bed: [place] [address] Admit/Disch: 07/20/23 11:45:05 - 07/20/23 16:30:00 Institution: Case Times FT Entry 1 Patient Times In Room 07/20/23 14:26:00 Out Room 07/20/23 14:55:00 Procedure Times Start 07/20/23 14:35:00 Stop 07/20/23 14:51:00 Anesthesia Times Start 07/20/23 14:26:00 Stop 07/20/23 14:55:00 Last Modified By: Melinda Villalobos CST 07/25/23 12:30:00 General Comments: 07/25/23 Chart opened to review and send charges [facility]oth CSFA Case Attendance FT Entry 1 Entry 2 Entry 3 Case Attendee Debbie LEROY, Chris BRADY MD, Julio C Toro Role Performed Anesthesiologist of Surgeon - Primary Camera Systems Engineer - Primary Record Time In 07/20/23 14:26:00 07/20/23 14:26:00 07/20/23 14:26:00 Time Out 07/20/23 14:54:00 07/20/23 14:48:00 07/20/23 14:54:00 Procedure CYSTOSCOPY RETROGRADE CYSTOSCOPY RETROGRADE CYSTOSCOPY RETROGRADE STENT INSERTION(Left), STENT INSERTION(Left), STENT INSERTION(Left), CYSTOSCOPY CYSTOSCOPY CYSTOSCOPY URETEROSCOPY(.) URETEROSCOPY(.) URETEROSCOPY(.) Comments DR PROCTOR SUPERVISING Last Modified By: Julio C Pedraza Terry T Sweene, Terry T 07/20/23 14:54:57 07/20/23 14:54:57 07/20/23 14:54:57 Entry 4 Entry 5 Case Attendee Amarilis Velarde RT(R), Nayana R Role Performed Scrub - Primary Lumber Sorter Machine Time In 07/20/23 14:26:00 07/20/23 14:26:00 Time Out 07/20/23 14:54:00 07/20/23 14:54:00 Procedure CYSTOSCOPY RETROGRADE CYSTOSCOPY RETROGRADE STENT INSERTION(Left), STENT INSERTION(Left), CYSTOSCOPY CYSTOSCOPY URETEROSCOPY(.) URETEROSCOPY(.) Comments Last Modified By: Julio C Pedraza Terry T 07/20/23 14:54:57 07/20/23 14:54:57 Perioperative Protocols FT Pre-Care Text: Implements protective measures prior to operative or invasive procedure, confirms identity before the operative or invasive procedure, verifies operative procedure, surgical site, and laterality Entry 1 Procedure(s) CYSTOSCOPY RETROGRADE Patient Identity Birthday, ID Band STENT INSERTION(Left), Verified (select at Check, Patient CYSTOSCOPY least 2): Participation URETEROSCOPY(.) Consents / H and P Anesthesia Consent, Operative Site Present Verified HandP, Surgery/Procedure Marking Verified Consent Surgical Site Yes Laterality Verified Yes Verified Procedure Verified Yes Correct Patient Yes Position Verified Availability Equipment, Medication, Prep Dry n/a Verified (If X-ray Applicable) PreOp Antibiotic Yes Time Out Chris Salazar Given Participants MIAN Herbert MD, Víctor Gonzáles, Julio C Pedraza, Amarilis Velarde A, Rakesh RT(R), Nayana R Time Out Complete 07/20/23 14:35:00 Outcomes Met? Yes Last Modified By: Julio C Pedraza 07/20/23 14:52:44 Post-Care Text: The patient is free from signs and symptoms of injury caused by extraneous objects Allergy Information FT Pre-Care Text: Verifies allergies Entry 1 Allergies Reviewed? Yes Allergies Reviewed Self/Patient With Outcomes Met? Yes Last Modified By: Julio C Pedraza 07/20/23 14:39:39 Post-Care Text: The patient received appropriate medication(s) safely administered during the perioperative period Surgical Procedures FT Entry 1 Entry 2 Procedure Description Procedure CYSTOSCOPY RETROGRADE CYSTOSCOPY URETEROSCOPY STENT INSERTION Modifiers Left . Surgeon Description CYSTOSCOPY WITH LEFT CYSTOSCOPY WITH LEFT RETROGRADE, LEFT RETROGRADE, LEFT URETEROSCOPY, URETEROSCOPY, EVACUATION OF STONES EVACUATION OF STONES FROM BLADDER. FROM BLADDER. Primary Procedure Yes No Primary Surgeon Víctor BRADY MD, MD, Gregory P Start 07/20/23 14:35:00 07/20/23 14:35:00 Stop 07/20/23 14:51:00 07/20/23 14:51:00 Anesthesia Type General General Surgical Service Urology Urology Wound Class 2 - Clean-Contaminated 2 - Clean-Contaminated Last Modified By: Julio C Pedraza Terry T 07/20/23 14:54:58 07/20/23 14:54:58 General Case Data FT Pre-Care Text: Classifies surgical wound, implements aseptic technique, initiates traffic control Entry 1 Case Information OR OR 1 FT Case Level Level 3 Wound Class 2 - Clean-Contaminated Specialty Urology ASA Class 3 Preop Diagnosis URETERAL STONE AND Postop Same As Preop Yes BLADDER STONE Postop Diagnosis URETERAL STONE AND Outcomes Met? Yes BLADDER STONE Last Modified By: Julio C Pedraza 07/20/23 14:40:59 Post-Care Text: The patient is free from signs and symptoms of infection Skin Assessment (Pre Procedure) FT Pre-Care Text: Implements protective measures to prevent skin/ tissue injury due to thermal or mechanical sources Evaluates for signs and symptoms of physical injury to skin and tissue Entry 1 Skin Int (more content not included)... [facility] Progress Note-Physicianon Progress Note-Physician Patient: FREEDOM RODGERS Age: 62 years Sex: Male : 1960 Associated Diagnoses: None Author: MD Esthela, Jacobo Hinds Postoperative Information Postoperative disposition: Postoperative disposition: To PACU. Optimetrix number: Optimetrix number [id number]. Anesthetic utilized: General. Health Status Allergies: Allergic Reactions (Selected) Severe Seafood- Unknown. Moderate Contrast media (iodine-based)- Hives. Physical Examination VS/Measurements Pain Assessment: Controlled. General: Awake, Alert, Appropriate. Respiratory: Adequate air exchange. Cardiovascular: Stable, Normal peripheral perfusion. Neurological: Normal sensory function, Normal motor function. Assessment Anesthetic outcome No anesthetic complications noted. Adequate pain relief. able to void without difficulty, able to ambulate with assist, tolerating PO intake, no N/V. Review / Management Condition: Stable. Plan Transfer/Discharge: Transfer/Discharge Discharge when meets criteria ( To home ). [facility] Comment on above: Result Comment: Elec tronically Signed By: MD Proctor Ahmad F\.br\Date and Time Signed: 07/25/23 00:26 EST Progress Note-Physician Patient: FREEDOM RODGERS Age: 62 years Sex: Male : 1960 Associated Diagnoses: None Author: MD Proctor Ahmad F Preoperative Information Time patient last ate or drank:=== (npo 8 hours) Anesthesia history: Patient history: No prior anesthesia problems. Re-evaluation prior to induction: Completed, Initial evaluation reviewed. Review of Systems Respiratory: No shortness of breath. Cardiovascular: No chest pain. Hematology/Lymphatics: No bruising tendency, No bleeding tendency. Health Status Allergies: Allergic Reactions (All) Severe Seafood- Unknown. Moderate Contrast media (iodine-based)- Hives. Current medications: (Selected) Prescriptions Prescribed Cipro 500 mg Tab: 500 mg = 1 tab(s), Oral, BID, # 10 tab(s), Refills(s) 0, Pharmacy: [id number], 185, cm, 07/17/23 5:45:00 EST, Height/Length Dosing, 77, kg, 07/17/23 5:45:00 EST, Weight Dosing Documented Medications Documented BIOTIN 10,000 MCG SOFTGEL: BIOTIN 10,000 MCG SOFTGEL, BID Eliquis 5 mg oral tablet: 5 mg = 1 tab(s), Oral, BID, Refills(s) 0, Blood Thinner atorvastatin 80 mg Tab: 80 mg = 1 tab(s), Oral, Daily, High cholesterol biotin: 1 tablet, Oral, BID, Refills(s) 0 desvenlafaxine 25 mg oral tablet, extended release: 25 mg = 1 tab(s), Oral, Daily, Depression gabapentin 400 mg Cap: 400 mg = 1 cap(s), Oral, TID, Neuropathy losartan 100 mg Tab: 100 mg = 1 tab(s), Oral, Daily, High blood pressure magnesium oxide 400 mg Tab: 400 mg = 1 tab(s), Oral, Daily, Refills(s) 0, Prophylaxis metoprolol 50 mg ER Tab: 50 mg = 1 tab(s), Oral, Daily, High blood pressure naltrexone 50 mg oral tablet: 50 mg = 1 tab(s), Oral, Daily, Neuropathy topiramate 50 mg Tab: 50 mg = 1 tab(s), Oral, BID, Neuropathy Problem list: All Problems Smoker / SNOMED CT 221584941 / Confirmed Added secondary to documentation in Social History. Hypertension / SNOMED CT 6008191082 / Confirmed Hypercholesterolemia / SNOMED CT 09840969 / Confirmed Kidney stones / SNOMED CT 729633052 / Confirmed Headaches, cluster / SNOMED CT 210074771 / Confirmed Depression / SNOMED CT 3284940371 / Confirmed Ureteral stone / SNOMED CT 20414821 / Confirmed Atrial fibrillation / SNOMED CT 99784066 / Confirmed Gross hematuria / SNOMED CT 741062465 / Confirmed Histories Past Medical History: No active or resolved past medical history items have been selected or recorded. Family History: FH: Drug dependency Father Kidney stone Brother Asthma Father Hypertension Mother Father Arthritis Mother Migraine Mother Stroke Mother Hyperlipidemia Father Heart disease Father Diabetes Grandparent Alcohol dependency Father Procedure history: Cystoscopy ([id number]) on 07/20/2023 at 62 Years. Tonsillectomy and adenoidectomy (648027456) on 07/31/1970 at 9 Years. Ablation (394916569). Comments: 10/19/2021 9:54 Odette Anaya RN 1989 cardiac ablation Nerve graft (184770115). Comments: 10/19/2021 9:55 Odette Anaya RN 1989 Nerve graft Left wrist Colonoscopy (774288956). Social History Social & Psychosocial Habits Alcohol 07/20/2023 Risk Assessment: Denies Alcohol Use 07/20/2023 Use: Past Frequency: Several times per day Substance Abuse 07/20/2023 Risk Assessment: Denies Substance Abuse Tobacco 07/20/2023 Risk Assessment: Medium Risk 07/20/2023 Tobacco Use: 10 or more cigarettes (1/, Smoker, current status un Smokeless tobacco use: Never Type: Cigarettes Started at age: 20.0 Years . Physical Examination Please see preop flow sheet Airway: Mallampati classification: II (soft palate, fauces, uvula visible). Respiratory: Lungs are clear to auscultation. Cardiovascular: Normal rate, Regular rhythm. Neurologic: Alert. Review / Management Results review Interpretation of Outside Results Chest x-ray results Radiology results ECG interpretation Condition Plan [place] [employer] Anesthesiologists (ASA) physical status classification: Class III. Anesthetic Preoperative Plan Anesthesia: General. . Anesthetic plan, risks, benefits, and alternatives discussed with the patient and/or family. Risks discussed: nausea, vomiting, headache, sore throat, dental injury, serious complications. Patient verbalized understanding. Communication: face to face with patient 5 minutes. [facility] Comment on above: Result Comment: Elec tronically Signed By: MD Esthela, Jacobo Hinds\.br\Date and Time Signed: 07/25/23 00:25 EST Consent for Anesthesiaon Consent for Anesthesia [id number]#1.00TIFF [facility] Discharge Instructionson Discharge Instructions [id number]#1.00TIFF [facility] IntraOperative Documentson 1 09-21-2022 IntraOperative Documents [id number]#1.00TIFF [facility] Pre-Op Checkliston 3 Pre-Op Checklist [id number]#1.00TIFF [facility] XR Urography Retrograde Left on 07-21-2023 XR Urography Retrograde Left Exam Date/Time: 07/20/2023 14:57 EST Reason for Exam: Kidney stone Report IMPRESSION: INTRAOPERATIVE FLUOROSCOPY DISCUSSED. CLINICAL HISTORY: Kidney stone COMPARISON: NONE. FINDINGS: Left retrograde urogram. 5 images. 9.0 mGy. I see operative note for additional information. Ordering Provider: Víctor BRADY FINAL REPORT Dictated: 07/21/2023 9:26 am Signer Johnnie MELENDEZ Signed (Electronic Signature): 07/21/2023 9:26 am Signed by: Johnnie Harvey MD Transcribed by: LULA Technologist: LIT Technical Comments Radiation Dose: merna Miranda in mGy = 9.00 DAP = 385.48 [facility] Consent for Procedure/Surger yon 07-20-2023 Consent for Procedure/Surgery [id number]#1.00TIFF Normal [facility] Consent for Treatmenton 07-01 Consent for Treatment [id number]#1.00TIFF Normal [facility] Discharge Instructionson Discharge Instructions FREEDOM RODGERS :1960 Visit Date:07/20/2023 Inpatient Discharge Instructions Your Care Team Admitting Physician - Víctor BRADY MD Referring Physician - Víctor BRADY MD Reason for Your Visit URETERAL STONE AND BLADDER STONE Tests Performed Calculi Analysis Urinary -- Results Pending -- XR Abdomen 1 View XR Urography Retrograde Left -- Results Pending -- Please visit your patient portal for your results or contact your primary care physician. This Is Your Medications List Misc Prescription (BIOTIN 10,000 MCG SOFTGEL) apixaban (Eliquis 5 mg oral tablet) atorvastatin (atorvastatin 80 mg Tab) biotin ciprofloxacin (Cipro 500 mg Tab) desvenlafaxine (desvenlafaxine 25 mg oral tablet, extended release) gabapentin (gabapentin 400 mg Cap) losartan (losartan 100 mg Tab) magnesium oxide (magnesium oxide 400 mg Tab) metoprolol (metoprolol 50 mg ER Tab) naltrexone (naltrexone 50 mg oral tablet) topiramate (topiramate 50 mg Tab) Procedure History Tonsillectomy and adenoidectomy (07/31/1970), Ablation, Colonoscopy, Nerve graft. What to do next Instructions From Your Doctor Event Name Event Result Discharge Activity Arrange for a responsible adult supervision for 24 hours, Expect mild pain, Expect minimal amount of drainage and/or bleeding Discharge Restrictions No driving, Do not operate machinery or tools, Do not make important decisions for 24 hours, Do not drink alcoholic beverages for 24 hours Discharge Diet(s) Regular Call Your Doctor For Persistent or heavy bleeding, Temperature above 101.5 degrees Discharge Instructions Discharge Instructions New Follow Up Appointments after Discharge Follow Up with Víctor BRADY When: Comments: I was able to retrieve the bladder stones. I did perform the x-ray dye test up the left ureter and actually took a scope and looked up into the tube itself. I found no evidence of left ureteral stones. I did send you some antibiotics to take. We will have to wait for the results to come back regarding what the stone is actually made of which I retrieved from the bladder. Based on that result I would like to see you in 6 months either with a kidney ultrasound or an abdominal x-ray. Have a Dionna Chakraborty. Where: [address] [place] [id number]- Business (1) Medications What How Much When Instructions Next Dose New ciprofloxacin (Cipro 500 mg Tab) 1 Tablets By Mouth 2 times a day Pickup at [facility] #[id number] Unchanged apixaban (Eliquis 5 mg oral tablet) 1 Tablets By Mouth 2 times a day Unchanged atorvastatin (atorvastatin 80 mg Tab) 1 Tablets By Mouth Every day Unchanged biotin 1 tablet By Mouth 2 times a day Unchanged desvenlafaxine (desvenlafaxine 25 mg oral tablet, extended release) 1 Tablets By Mouth Every day Unchanged gabapentin (gabapentin 400 mg Cap) 1 Capsules By Mouth 3 times a day Unchanged losartan (losartan 100 mg Tab) 1 Tablets By Mouth Every day Unchanged magnesium oxide (magnesium oxide 400 mg Tab) 1 Tablets By Mouth Every day Unchanged metoprolol (metoprolol 50 mg ER Tab) 1 Tablets By Mouth Every day Unchanged Misc Prescription (BIOTIN 10,000 MCG SOFTGEL) 0 2 times a day Unchanged naltrexone (naltrexone 50 mg oral tablet) 1 Tablets By Mouth Every day Unchanged topiramate (topiramate 50 mg Tab) 1 Tablets By Mouth 2 times a day Pharmacy Information [facility] #[id number]: [address] [place], [place] [id number] [phone] Test Results No qualifying data available. Allergies Seafood (Unknown) contrast media (iodine-based) (Hives) Problems Ongoing - Any problem that you are currently receiving treatment for. Atrial fibrillation Depression Gross hematuria Headaches, cluster Hypercholesterolemia Hypertension Kidney stones Smoker Ureteral stone Education Materials [facility] [place], [place] Dr. Víctor Mo Post-operative Instructions for Ureteroscopy, Laser Lithotripsy, Stone Extraction and Stent Placement There are no incisions or dressings to be concerned with, as the procedure was performed inside the urinary system. For 24 hours after surgery: ? No driving or operating machinery ? Do not make important decisions ? Do not consume alcohol, sleeping pills Stent Placement You may have a stent which spans the distance between your bladder and your kidney, allowing urine to pass through. It prevents blockage from swelling, kidney stones in ureter (tube connecting the kidney to the bladder), or scars. The presence of the stent may cause: ? Back or side pain, especially with urination ? Frequent or urgent urination ? Bladder pressure or pain ? Blood in urine You may pass stone debris or small blood clots, which is expected. Drinking plenty of water to dilute the urine may help. If there is a thread coming out o (more content not included)... Normal [facility] Comment on above: Result Comment: Elec tronically Signed By: Petros PENNINGTON, Renetta Norris\.br\Date and Time Signed: 07/20/23 15:34 EST H&P Updateon 07-20-2023 H&P Update [id number] Normal [facility] Inpatient Patient Summaryon 07-20-2023 Inpatient Patient Summary [place] [id number] [facility] Clinical Discharge Instructions PERSON INFORMATION Name: FREEDOM RODGERS [facility]#:[id number] PHYSICIANS Admitting Physician: Víctor BRADY MD Attending Physician: Víctor BRADY MD PCP: ARCHIE HOOKS MD Discharge Diagnosis: Comment: PATIENT EDUCATION INFORMATION Instructions: Post Op Patient Instructions - FT (Custom) (Custom) Medication Leaflets: Follow up: With: Address: When: Víctor BRADY [address] [place] [address], [address], [place] [id number] [facility] (1) Comments: I was able to retrieve the bladder stones. I did perform the x-ray dye test up the left ureter and actually took a scope and looked up into the tube itself. I found no evidence of left ureteral stones. I did send you some antibiotics to take. We will have to wait for the results to come back regarding what the stone is actually made of which I retrieved from the bladder. Based on that result I would like to see you in 6 months either with a kidney ultrasound or an abdominal x-ray. Have a Dionna Nolascomas. MEDICATION LIST New Medications [id number], [address], [place] [id number], [phone] ciprofloxacin (Cipro 500 mg Tab) 1 Tablets By Mouth 2 times a day. Refills: 0. Medications to Continue with No Changes Other Medications apixaban (Eliquis 5 mg oral tablet) 1 Tablets By Mouth 2 times a day. atorvastatin (atorvastatin 80 mg Tab) 1 Tablets By Mouth every day. biotin 1 tablet By Mouth 2 times a day. desvenlafaxine (desvenlafaxine 25 mg oral tablet, extended release) 1 Tablets By Mouth every day. gabapentin (gabapentin 400 mg Cap) 1 Capsules By Mouth 3 times a day. losartan (losartan 100 mg Tab) 1 Tablets By Mouth every day. magnesium oxide (magnesium oxide 400 mg Tab) 1 Tablets By Mouth every day. metoprolol (metoprolol 50 mg ER Tab) 1 Tablets By Mouth every day. Misc Prescription (BIOTIN 10,000 MCG SOFTGEL) 0 2 times a day. naltrexone (naltrexone 50 mg oral tablet) 1 Tablets By Mouth every day. topiramate (topiramate 50 mg Tab) 1 Tablets By Mouth 2 times a day. Comment: Normal [facility] Main OR PACU I Recordon 07-01 Main OR PACU I Record PACU Phase I Docum ent Type FT Summary Primary Physician: Víctor BRADY MD Finalized Date/Time: 07/20/23 15:36:00 Pt. Name: ANA MARIA FREEDOM Maloney/Sex: 1960 Male Med Rec #: [id number] Physician: Víctor BRADY MD Financial #: [id number] Pt. Type: A Room/Bed: [place] [address] Admit/Disch: 07/20/23 11:45:05 - Institution: Case Times PACU I FT Pre-Care Text: Identifies barriers to communication and implements measures to provide psychological support Develops individualized plan of care, and ensures continuity of care Maintains patient's dignity and privacy, and maintains patient confidentiality Identifies and reports philosophical, cultural, and spiritual beliefs and values Identifies individual values and wishes concerning care Implements aseptic technique, and administers prescribed antibiotic therapy and immunizing agents as ordered Evaluates postoperative tissue perfusion Implements thermoregulation measures, and monitors body temperature Evaluates postoperative respiratory status Evaluates postoperative cardiac status Evaluates postoperative neurological status Assesses pain control, collaborated in initiating patient-controlled analgesia and implements alternative methods of pain control Verifies allergies, administers prescribed medications and solutions, evaluates response to medications Entry 1 In PACU I 07/20/23 14:57:00 Discharge from PACU 07/20/23 15:27:00 I Outcomes Met? Yes Last Modified By: DALJIT DE LA TORRE RN 07/20/23 15:35:41 Post-Care Text: The patient demonstrates knowledge of the expected response to the operative or invasive procedure The patient's care is consistent with the individualized perioperative plan of care The patient's right to privacy is maintained The patient's value system, lifestyle, ethnicity, and culture are considered, respected, and incorporated into the perioperative plan of care The patient participates in decisions affecting his or her perioperative plan of care The patient is free from signs and symptoms of infection The patient has wound/tissue perfusion consistent with or improved from baseline levels established preoperatively The patient is at or returning to normothermia at the conclusion of the immediate postoperative period The patient's respiratory function is consistent with or improved from baseline levels established preoperatively The patient's cardiovascular status is consistent with or improved from baseline levels established preoperatively The patient's cardiovascular status is consistent with or improved from baseline levels established preoperatively The patient demonstrates and/or reports adequate pain control throughout the perioperative period The patient received appropriate medication(s), safely administered during the perioperative period Acuity Level PACU I FT Entry 1 Start Time 07/20/23 14:57:00 Stop Time 07/20/23 15:27:00 Acuity Level Acuity Level I Last Modified By: DALJIT DE LA TORRE RN 07/20/23 15:35:57 Finalized By: DALJIT DE LA TORRE RN Document Signatures Signed By: DALJIT DE LA TORRE RN 07/20/23 15:36 Normal [facility] Main OR PACU II Recordon Main OR PACU II Record PACU Phase II Doc ument Type FT Summary Primary Physician: Víctor BRADY MD Finalized Date/Time: 07/20/23 16:49:19 Pt. Name: FREEDOM RODGERS D.O.B./Sex: 1960 Male Med Rec #: [id number] Physician: Víctor BRADY MD Financial #: [id number] Pt. Type: A Room/Bed: [place] [address] Admit/Disch: 07/20/23 11:45:05 - Institution: Case Times PACU II FT Pre-Care Text: Identifies barriers to communication and implements measures to provide psychological support and determines knowledge level Develops individualized plan of care, and ensures continuity of care Maintains patient's dignity and privacy, and maintains patient confidentiality Identifies and reports philosophical, cultural, and spiritual beliefs and values Identifies individual values and wishes concerning care administers prescribed antibiotic therapy and immunizing agents as ordered, Evaluates postoperative tissue perfusion Implements thermoregulation measures, and monitors body temperature Evaluates postoperative respiratory status Evaluates postoperative cardiac status Evaluates postoperative neurological status Assesses pain control, collaborated in initiating patient-controlled analgesia and implements alternative methods of pain control Verifies allergies, administers prescribed medications and solutions, evaluates response to medications Entry 1 In PACU II 07/20/23 15:30:00 Discharge from PACU 07/20/23 16:30:00 II Outcomes Met? Yes Last Modified By: Polly Avendano I 07/20/23 16:49:14 Post-Care Text: The patient demonstrates knowledge of the expected response to the operative or invasive procedure The patient's care is consistent with the individualized perioperative plan of care The patient's right to privacy is maintained The patient's value system, lifestyle, ethnicity, and culture are considered, respected, and incorporated into the perioperative plan of care The patient participates in decisions affecting his or her perioperative plan of care. The patient is free from signs and symptoms of infection The patient has wound/tissue perfusion consistent with or improved from baseline levels established preoperatively The patient is at or returning to normothermia at the conclusion of the immediate postoperative period The patient's respiratory function is consistent with or improved from baseline levels established preoperatively The patient's cardiovascular status is consistent with or improved from baseline levels established preoperatively The patient's neurological status is consistent with or improved from baseline levels established preoperatively The patient demonstrates and/or reports adequate pain control throughout the perioperative period The patient received appropriate medication(s), safely administered during the perioperative period Finalized By: Polly Avendano I Document Signatures Signed By: Polly Avendano I 07/20/23 16:49 Normal [facility] Main OR Preoperative Recordo n 07-20-2023 Main OR Preoperative Record PreOp Document Type FT Summary Primary Physician: Víctor BRADY MD Finalized Date/Time: 07/20/23 14:31:31 Pt. Name: FREEDOM RODGERS /Sex: 1960 Male Med Rec #: [id number] Physician: Víctor BRADY MD Financial #: [id number] Pt. Type: A Room/Bed: [place] [address] Admit/Disch: 07/20/23 11:45:05 - Institution: Case Times PreOp FT Pre-Care Text: Verifies consent for planned procedure, identifies individual values and wishes concerning care, includes family members in perioperative teaching Entry 1 Patient Times. In Pre Surgery 07/20/23 12:10:00 Out Pre Surgery 07/20/23 14:26:00 Outcomes Met? Yes Last Modified By: Julio C Pedraza 07/20/23 14:31:29 Post-Care Text: The patient participates in decisions affecting his or her perioperative plan of care Finalized By: Julio C Pedraza Document Signatures Signed By: Julio C Pedraza 07/20/23 14:31 Normal [facility] Monitor Recordon 07-20-2023 Monitor Record [id number] Normal [facility] Monitor Record [id number] Normal [facility] Operative Reporton 3 Operative Report Patient: DENA RODGERS Age: 62 years Sex: Male : 1960 Associated Diagnoses: None Author: Víctor BRADY MD Postoperative Information Date/ Time: 07/20/2023 15:03:00 Postoperative Diagnosis: Bladder calculi Left ureteral calculus Left flank pain. Performed by: Víctor Brady MD. Findings: Procedure: Cystoscopy Evacuation bladder calculi Left retrograde pyelogram Left ureteroscopy Anesthesia: General, LMA, 2% Xylocaine jelly per urethra Indications: This is a 62-year-old male with intermittent left-sided flank pain. He was previously evaluated with studies indicating bladder calculi and a 3 to 4 mm stone in the left distal ureter. He is having intermittent severe flank pain on the left side. He presents today for cystoscopy, possible evacuation/laser of bladder stone, left retrograde pyelogram left ureteroscopy possible stone basket etc. He understands risk benefits and details of the procedure as outlined to him. He understands the risk of bleeding, infection, need for additional procedural intervention, possible stent placement, heart and lung problems under anesthesia, among others. He wishes to proceed. He did receive preoperative antibiotics and he does have sequential compression devices in place and functional bilateral lower extremities throughout the case. Procedure: The patient was brought back to the operating room and a timeout was performed. All are in agreement with the operative plan. After the successful induction of general anesthesia he is placed in a modified dorsolithotomy position and prepped in usual fashion Betadine solution. He is draped appropriately. 2% Xylocaine jelly is placed per urethra and a well-lubricated 22 [place]i is urethroscope with 30 degree lens then passed into the bladder. Anterior urethra is within normal limits. Prostate is moderately obstructing in the lateral lobes. 3-1/2 cm long. Once into the bladder panendoscopy reveals no tumors, multiple tiny stone fragments and about a 5 to 6 mm stone. Both orifices are normal. No irritation, inflammation, or erythema. Utilizing the [facility] evacuator the stones were evacuated free from the bladder. The largest of these is sent to pathology for evaluation. Left retrograde pyelogram was subsequently performed. There is some strictured areas which I do not consider clinically significant in the mid aspect of the lower ureter. There was initially no distinct hydronephrosis or obvious filling defect. Upon pushing more contrast the left calyceal system does fill out a bit more prominently. I monitored both the ureter and the fluoroscopy during passage of the contrast downwards. Cannot rule out a small distal ureteral stone and I felt that ureteroscopy was indicated. 0.035 guidewire was passed up the left orifice. Alongside that the semirigid ureteroscope was then passed up the left ureter. I was able to gain access into the ureter up to the mid aspect just over the pelvic brim. No stones identified. Scope brought back down the ureter and other than areas which appear to be none clinically significant ureteral strictures, this was completely normal. Scope removed. The bladder was emptied and the procedure was terminated. He tolerates it well. He is transferred to the [facility] and then back to PACU in satisfactory condition, stable vital signs. Plan will be for discharge home with plans to follow-up in the office in about 6 months or so. The study to be performed prior to that visit will be determined by the stone Cx. If this is a uric acid stone then renal ultrasound will be obtained. If this is a calcium stone then KUB will be obtained. Discussed all this with his postop and she is in agreement with the plan. Antibiotic prophylaxis sent to pharmacy.. Estimated Blood Loss: 1 ml. Complications: None. Anesthesia type: General. Normal [facility] Comment on above: Result Comment: Elec tronically Signed By: Víctor BRADY MD\.br\Date and Time Signed: 07/20/23 15:08 EST Outpatient Surgery Discharge Instructionon 07-20-2023 Outpatient Surgery Discharge Instruction [place] [id number] Patient Discharge Instructions PERSON INFORMATION Name: FREEDOM RODGERS Date of : 1960 Current Date: 07/20/2023 15:03:31 PHYSICIANS Admitting Physician: Víctor BRADY MD Discharge Diagnosis: FREEDOM RODGERS has been given the following list of follow-up instructions, prescriptions, and patient education materials: PATIENT FOLLOW-UP INFORMATION Diet: Regular Discharge Activity: Arrange for a responsible adult supervision for 24 hours, Expect mild pain, Expect minimal amount of drainage and/or bleeding Discharge Restrictions: No driving, Do not operate machinery or tools, Do not make important decisions for 24 hours, Do not drink alcoholic beverages for 24 hours Call Your Doctor For: Persistent or heavy bleeding, Temperature above 101.5 degrees IF UNABLE TO CONTACT YOUR PHYSICIAN AND YOU FEEL IT IS AN EMERGENCY, GO TO THE NEAREST EMERGENCY ROOM OR CALL 911 [place] MAR[place] Garrison JOSEPH M, have received the attached patient education materials/instructions and have verbalized understanding: May we do a follow up call? Yes No I was present when discharge instructions were given Patient Signature ___ Date Clinican/Nurse Signature Date Follow up: With: Address: When: Víctor BRADY [address], [address], [facility] [address] [place] [address] Business (1) Comments: I was able to retrieve the bladder stones. I did perform the x-ray dye test up the left ureter and actually took a scope and looked up into the tube itself. I found no evidence of left ureteral stones. I did send you some antibiotics to take. We will have to wait for the results to come back regarding what the stone is actually made of which I retrieved from the bladder. Based on that result I would like to see you in 6 months either with a kidney ultrasound or an abdominal x-ray. Have a Dionna Chakraborty. Pharmacy Information: You may receive a survey from [facility] asking you to rate your care experience. Your feedback is important and will help us understand what we do well and how we can improve the quality of care we provide to you, your loved ones and our community. It?s an honor to serve you. Thank you for choosing [facility] HERE ARE THE MEDICATION CHANGES THAT OCCURRED DURING YOUR HOSPITAL STAY New Medications [facility] #[id number], [address] [facility] [place], [place] [id number], [phone] ciprofloxacin (Cipro 500 mg Tab) 1 Tablets By Mouth 2 times a day. Refills: 0. Medications to Continue with No Changes Other Medications apixaban (Eliquis 5 mg oral tablet) 1 Tablets By Mouth 2 times a day. atorvastatin (atorvastatin 80 mg Tab) 1 Tablets By Mouth every day. biotin 1 tablet By Mouth 2 times a day. desvenlafaxine (desvenlafaxine 25 mg oral tablet, extended release) 1 Tablets By Mouth every day. gabapentin (gabapentin 400 mg Cap) 1 Capsules By Mouth 3 times a day. losartan (losartan 100 mg Tab) 1 Tablets By Mouth every day. magnesium oxide (magnesium oxide 400 mg Tab) 1 Tablets By Mouth every day. metoprolol (metoprolol 50 mg ER Tab) 1 Tablets By Mouth every day. Misc Prescription (BIOTIN 10,000 MCG SOFTGEL) 0 2 times a day. naltrexone (naltrexone 50 mg oral tablet) 1 Tablets By Mouth every day. topiramate (topiramate 50 mg Tab) 1 Tablets By Mouth 2 times a day. PATIENT EDUCATION INFORMATION Instructions: Medication Leaflets: Normal [facility] Patient Education - Texton 1 09-20-2022 Patient Education - Text [facility] [place], [place] Dr. Víctor Mo Post-operative Instructions for Ureteroscopy, Laser Lithotripsy, Stone Extraction and Stent Placement There are no incisions or dressings to be concerned with, as the procedure was performed inside the urinary system. For 24 hours after surgery: ? No driving or operating machinery ? Do not make important decisions ? Do not consume alcohol, sleeping pills Stent Placement You may have a stent which spans the distance between your bladder and your kidney, allowing urine to pass through. It prevents blockage from swelling, kidney stones in ureter (tube connecting the kidney to the bladder), or scars. The presence of the stent may cause: ? Back or side pain, especially with urination ? Frequent or urgent urination ? Bladder pressure or pain ? Blood in urine You may pass stone debris or small blood clots, which is expected. Drinking plenty of water to dilute the urine may help. If there is a thread coming out of urinary channel, be careful not to accidently pull on this, as it is attached to the stent. The stent will most likely be removed in the office during a short procedure in which a scope is placed into the bladder, the stent is grasped and removed. At other times the stent may need to stay longer, either in preparation for other procedures or for other reasons. If it is to remain half-way, however, changes of the stent are required (about every 3-4 months). Diet You may resume your normal diet, but you may want to start slowly and avoid spicy food, caffeine, carbonated beverages and alcohol, especially if you have a stent. Your diet and fluid intake may make irritation from the stent worse. Activity You may resume your normal activities, although you should take it easy on the day of the procedure. Minimizing activity may decrease the back discomfort and irritation from the stent, if present. Medications ? You may resume your home medications unless instructed otherwise. ? Hold aspirin, ibuprofen, Coumadin (warfarin) and other blood thinners until your office visit (we will discuss when to resume these medications) ? Take your prescribed medications as directed, including your antibiotics. You may also be given a prescription for pain medicine or medicines to help with the bladder irritation from stent, if present. Things to watch for which would require an Emergency Room Visit (or call 911) (This is not a complete list) ? Fever over 101.5 degrees, with or without chills ? Severe bleeding ? Severe drug reactions with itching, hives, rash, or severe flank pain ? Tenderness or swelling or the calves, chest pain, or shortness of breath Please call the office to arrange for your post-operative appointment (with XRAY) [phone] Normal [facility] XR Abdomen 1 Viewon 07-20-20 23 XR Abdomen 1 View Exam Date/Time: 07/20/2023 12:08 EST Reason for Exam: Kidney stone Report IMPRESSION: NONSPECIFIC ABDOMEN. CLINICAL HISTORY: Kidney stone COMPARISON: NONE. FINDINGS: Evaluation of renal calculi limited secondary to gas and stool in colon and gas in small bowel. No diffuse small bowel dilatation. No mass effect. No abnormal calcification. Phleboliths in pelvis. Iliofemoral calcification surgical clips gallbladder fossa. Ordering Provider: Víctor BRADY FINAL REPORT Dictated: 07/20/2023 12:40 pm Johnnie Harvey MD Signed (Electronic Signature): 07/20/2023 12:40 pm Signed by: Johnnie Harvey MD Transcribed by: LULA Technologist: FUNMI Technical Comments Radiation Dose: Ka,r in mGy = na DAP = na Normal [facility] Formson 07-19-2023 Forms [id number] Normal [facility] Outside Recordson 07-18-2023 Outside Records [id number] Normal [facility] ED Note-Physicianon 07-16-20 ED Note-Physician [id number] Normal [facility] Auto Diffon 07-14-2023 Basophils/100 WBC (Bld) 0.6 % Normal 0.0-2.0 [facility] Comment on above: Order Comment: Order Added by Discern Expert. Performed By: #### 1 [id number] ####[facility] [address] [place] [address] Basophils/Leukocytes Auto (Bld) [Pure # fraction] 0.0 E9/L Normal 0.0-0.2 [facility] Comment on above: Order Comment: Order Added by Discern Expert. Performed By: #### 1 [id number], 9409744, 4452318, 6727874, [id number] ####[facility] [address] [place] [address] Eosinophils/100 WBC (Bld) 2.1 % Normal 0.0-8.0 [facility] Comment on above: Order Comment: Order Added by Discern Expert. Performed By: #### 1 [id number], 6960350, 5543074, 4569177, 66428229 ####[facility] [address] [place] [address] Eosinophils/Leukocytes Auto (Bld) [Pure # fraction] 0.2 E9/L Normal 0.0-0.5 [facility] Comment on above: Order Comment: Order Added by Charissa Expert. Performed By: #### 1 7588592, 0764597, 2554194, 7889877, 41609119 ####[address] [place] [address] Lymphocytes/100 WBC (Bld) 22.3 % Normal 14.0-50.0 [facility] Comment on above: Order Comment: Order Added by Discern Expert. Performed By: #### 1 0332739, 4834594, 7115273, 2888482, 89276036 ####[address] [place] [address] Lymphocytes/Leukocytes Auto (Bld) [Pure # fraction] 1.6 E9/L Normal 1.0-4.0 [facility] Comment on above: Order Comment: Order Added by Charissa Expert. Performed By: #### 1 2161027, 5459166, 8178074, 7970941, 26685710 ####[address] [address] Monocytes/100 WBC (Bld) 6.9 % Normal 4.0-14.0 [facility] Comment on above: Order Comment: Order Added by Charissa Expert. Performed By: #### 1 3167280, 0876696, 6038493, 1423111, 04865015 ####[address] [address] Monocytes/Leukocytes Auto (Bld) [Pure # fraction] 0.5 E9/L Normal 0.2-1.0 [facility] Comment on above: Order Comment: Order Added by Charissa Expert. Performed By: #### 1 7754110, 6215741, 7603341, 3737085, 94751932 ####[address] [address] Neutrophils/100 WBC (Bld) 68.1 % Normal 36.0-75.0 [facility] Comment on above: Order Comment: Order Added by Charissa Expert. Performed By: #### 1 4233078, 2779758, 1560661, 3010258, 73727601 ####[facility] [address] [place] [address] Neutrophils/Leukocytes Auto (Bld) [Pure # fraction] 5.0 E9/L Normal 2.0-7.5 [facility] Comment on above: Order Comment: Order Added by Discern Expert. Performed By: #### 1 1793332, 9452848, 6688378, 8979512, 43800242 ####[facility] [address] [place] [address] BMPon 07-14-2023 Anion gap [Moles/Vol] 10 mmol/L Normal 6-16 [facility] Comment on above: Performed By: #### 1 9214897, 3657028, 5709071, 9112520, 90069229 ####[facility] [address] [place] [address] BUN/Creat Ratio 22 No Units High 10-20 [facility] Comment on above: Performed By: #### 1 1966163, 4732596, 9654924, 6599420, 31290437 ####[facility] [address] [place] [address] Calcium [Mass/Vol] 8.8 mg/dL Low 8.9-11.1 [facility] Comment on above: Performed By: #### 1 6863229, 7431246, 5381338, 5949893, 48608493 ####[facility] [address] [place] [address] Chloride [Moles/Vol] 115 mmol/L High 101-111 [facility] Comment on above: Performed By: #### 1 6062139, 7494724, 7668359, 4289886, 30978820 ####[facility] [address] [place] [address] CO2 [Moles/Vol] 21 mmol/L Normal 21-31 [facility] Comment on above: Performed By: #### 1 9382166, 3421604, 9373856, 2707487, 67368373 ####[facility] [address] [place] [address] Creatinine [Mass/Vol] 0.9 mg/dL Normal 0.5-1.3 [facility] Comment on above: Performed By: #### 1 2596312, 7945659, 2394673, 5372957, 01484625 ####[facility] [address] [place] [address] Glucose [Mass/Vol] 188 mg/dL Normal 55-199 [facility] Comment on above: Performed By: #### 1 3860632, 2852882, 4901517, 1155874, 16889134 ####[facility] [address] [place] [address] Potassium [Moles/Vol] 3.8 mmol/L Normal 3.5-5.3 [facility] Comment on above: Performed By: #### 1 6511961, 2077701, 1812693, 7927595, 68057607 ####[facility] [address] [place] [address] Sodium [Moles/Vol] 142 mmol/L Normal 135-145 [facility] Comment on above: Performed By: #### 1 1890267, 4026219, 7425206, 4952193, 87195429 ####[facility] [address] [place] [address] Urea nitrogen [Mass/Vol] 20 mg/dL Normal 5-21 [facility] Comment on above: Performed By: #### 1 2579932, 2350323, 9024730, 4298509, 95121992 ####[facility] [address] [place] [address] CBC w/ Auto Diffon Erythrocyte distribution width (RBC) [Ratio] 12.5 % Normal 10.9-14.2 [facility] Comment on above: Performed By: #### 1 1679621, 8608811, 3014749, 5200960, 05010529 ####[facility] [address] [place] [address] Hematocrit (Bld) [Volume fraction] 38.5 % Normal 37.7-49.0 [facility] Comment on above: Performed By: #### 1 7413492, 9912831, 5409592, 9074484, 16052680 ####[address] [place] [address] Hemoglobin (Bld) [Mass/Vol] 13.5 g/dL Normal 13.5-17.5 [facility] Comment on above: Performed By: #### 1 0722112, 1635257, 7682213, 8770058, 41396282 ####[address] [address] MCH (RBC) [Entitic mass] 33.6 pg Normal 27.0-34.0 [facility] Comment on above: Performed By: #### 1 4067589, 4702134, 0612280, 2174671, 20045634 ####[place] MCHC (RBC) [Mass/Vol] 35.2 g/dL Normal 31.4-36.0 [facility] Comment on above: Performed By: #### 1 9098390, 7959901, 2329532, 0493079, 39351617 ####[address] [address] MCV (RBC) [Entitic vol] 95.5 fL Normal 80.0-100.0 [facility] Comment on above: Performed By: #### 1 5084717, 0954156, 5901451, 6310155, 06236004 ####[address] [place] [address] Platelet mean volume (Bld) [Entitic vol] 8.6 fL Normal 6.4-10.8 [facility] Comment on above: Performed By: #### 1 0976248, 7375776, 7834862, 4567700, 57562193 ####[address] [address] Platelets (Bld) [#/Vol] 194.0 E9/L Normal 150.0-500.0 [facility] Comment on above: Performed By: #### 1 7398473, 3490538, 4729533, 7743129, 41882521 ####[facility] [address] [place] [address] RBC (Bld) [#/Vol] 4.0 E12/L Low 4.3-5.9 [facility] Comment on above: Performed By: #### 1 3697127, 0600515, 7099733, 3790754, 66416959 ####[facility] [address] [place] [address] WBC corrected for nucl RBC Auto (Bld) [#/Vol] 7.4 E9/L Normal 4.0-11.0 [facility] Comment on above: Performed By: #### 1 3306839, 1429945, 5810697, 1045801, 97527074 ####[facility] [address] [place] [address] CHEMISTRYOrdered By: SYSTEM SYSTEM on 07-14-2023 Anion gap [Moles/Vol] 10 mmol/L Normal 6 - 16 mEq/L R emisol Chem Calcium [Mass/Vol] 8.8 mg/dL Low 8.9 - 11. 1 mg/dL [facility] Chloride [Moles/Vol] 115 mmol/L High 101 - 1 11 mmol/L [facility] CO2 [Moles/Vol] 21 mmol/L Normal 21 - 31 mmol/L [facility] Creatinine [Mass/Vol] 0.9 mg/dL Normal 0.5 - 1.3 mg/dL [facility] eGFR mL/min/1.73 m2 Normal >=59mL/min/1 .73 m2 [facility] Glucose [Mass/Vol] 188 mg/dL Normal 55 - 199 mg/dL [facility] Potassium [Moles/Vol] 3.8 mmol/L Normal 3.5 - 5.3 mmol/L [facility] Sodium [Moles/Vol] 142 mmol/L Normal 135 - 145 mmol/L [facility] Urea nitrogen [Mass/Vol] 20 mg/dL Normal 5 - 21 mg/dL [facility] Urea nitrogen/Creatinine [Mass ratio] 22 mg/mg High 10 - 20 [facility] COAGULATIONOrdered By: Annalise Tran on 07-14-2023 aPTT Coag (PPP) [Time] 33.7 s Normal 25.1 - 36.5 second(s) [facility] Comment on above: Interpretive Data: P arameter 15 days - 4 weeks 1 - 5 months 6 - 11 months 1 - 5 years 6 - 10 years 11 - 17 years PTT Mean: 35.4 (27.6-45.6) Mean: 33.5 (24.8-40.7) Mean: 32.4 (25.1-40.7) Mean: 31.6 (24.0-39.2) Mean: 31.6 (26.9-38.7) Mean: 31.0 (24.6-38.4) Pediatric Reference ranges were obtained from a study by Wellington Alcaraz et al. prepared from 1437 samples obtained at 7 different centers using the same coagulation reagent and instrumentation as [facility]. Currently there are no coagulation studies available worldwide for children to 14 days, and no normal ranges. Heparin therapeutic range (represented by Anti-Factor Xa activity of 0.2 - 0.4 U/mL) corresponds to PTT of 56.6 - 109.0 sec. INR Coag (PPP) [Relative time] 1.2 {INR} Invalid Interpretation Code [facility] Comment on above: Interpretive Data: I NR results are specifically intended to assess patients stabilized on long-term Anticoagulation therapy suggested INR s Less Intensive Anticoagulation 2.0 3.0 Conventional Range 3.0 4.5 PT Coag (PPP) [Time] 12.8 s High 9.4 - 1 2.5 second(s) [facility] Comment on above: Interpretive Data: 1 5 days - 4 weeks 1 - 5 months 6 -11 months 1-5 years 6-10 years 11 -17 years Mean: 11.2 (9.5-12.6) Mean: 11.0 (9.7-12.8) Mean: 11.0 (9.8-13.0) Mean: 11.3 (9.9-13.4) Mean: 11.7 (10.0-14.6) Mean: 11.8 (10.0 - 14.1) Pediatric Reference ranges were obtained from a study by Wellington Alcaraz et al. prepared from 1437 samples obtained at 7 different centers using the same coagulation reagent and instrumentation as [facility]. Currently there are no coagulation studies available worldwide for children to 14 days, and no normal ranges. Consent for Treatmenton 06-30 Consent for Treatment [id number] Normal [facility] HEMATOLOGYOrdered By: SYSTEM SYSTEM on 07-14-2023 Basophils/100 WBC (Bld) 0.6 % Normal 0.0 - 2.0 % [facility] HemeAutoSS Basophils/Leukocytes Auto (Bld) [Pure # fraction] 0.0 E9/L Normal 0.0 - 0.2 E9/L [facility]eAutoSS Eosinophils/100 WBC (Bld) 2.1 % Normal 0.0 - 8.0 % [facility] HemeAutoSS Eosinophils/Leukocytes Auto (Bld) [Pure # fraction] 0.2 E9/L Normal 0.0 - 0.5 E9/L [facility] HemeAutoSS Lymphocytes/100 WBC (Bld) 22.3 % Normal 14.0 - 50.0 % [facility] HemeAutoSS Lymphocytes/Leukocytes Auto (Bld) [Pure # fraction] 1.6 E9/L Normal 1.0 - 4.0 E9/L [facility] HemeAutoSS Monocytes/100 WBC (Bld) 6.9 % Normal 4.0 - 14.0 % [facility] HemeAutoSS Monocytes/Leukocytes Auto (Bld) [Pure # fraction] 0.5 E9/L Normal 0.2 - 1.0 E9/L [facility] HemeAutoSS Neutrophils/100 WBC (Bld) 68.1 % Normal 36.0 - 75.0 % [facility]eAutoSS Neutrophils/Leukocytes Auto (Bld) [Pure # fraction] 5.0 E9/L Normal 2.0 - 7.5 E9/L [facility] HemeAutoSS HEMATOLOGYOrdered By: Kale Mcclendon on 07-14-2023 Erythrocyte distribution width (RBC) [Ratio] 12.5 % Normal 10.9 - 14.2 % [facility] Hematocrit (Bld) [Volume fraction] 38.5 % Normal 37.7 - 49.0 % [facility]eAuto[facility] Hemoglobin (Bld) [Mass/Vol] 13.5 g/dL Normal 13.5 - 17.5 gm/dL [facility] MCH (RBC) [Entitic mass] 33.6 pg Normal 27.0 - 34.0 pg [facility]eAuto[facility] MCHC (RBC) [Mass/Vol] 35.2 g/dL Normal 31.4 - 36.0 gm/dL [facility]eAuto[facility] MCV (RBC) [Entitic vol] 95.5 fL Normal 80.0 - 100.0 fL [facility] Platelet mean volume (Bld) [Entitic vol] 8.6 fL Normal 6.4 - 10.8 fL [facility] Platelets (Bld) [#/Vol] 194.0 E9/L Normal 150.0 - 500.0 E9/L [facility] RBC (Bld) [#/Vol] 4.0 E12/L Low 4.3 - 5.9 E12/L [facility] WBC corrected for nucl RBC Auto (Bld) [#/Vol] 7.4 E9/L Normal 4.0 - 11.0 E9/L [facility] HemeAuto[facility] PT & PTTon 07-14-2023 aPTT Coag (PPP) [Time] 33.7 second(s) Normal 25.1-36.5 [facility] Comment on above: Result Comment: Para meter 15 days - 4 weeks 1 - 5 months 6 - 11 months 1 - 5 years 6 - 10 years 11 - 17 years PTT Mean: 35.4 (27.6-45.6) Mean: 33.5 (24.8-40.7) Mean: 32.4 (25.1-40.7) Mean: 31.6 (24.0-39.2) Mean: 31.6 (26.9-38.7) Mean: 31.0 (24.6-38.4) Pediatric Reference ranges were obtained from a study by Wellington Alcaraz et al. prepared from 1437 samples obtained at 7 different centers using the same coagulation reagent and instrumentation as [facility]. Currently there are no coagulation studies available worldwide for children to 14 days, and no normal ranges. Heparin therapeutic range (represented by Anti-Factor Xa activity of 0.2 - 0.4 U/mL) corresponds to PTT of 56.6 - 109.0 sec. Performed By: #### 1 [id number], 4193318, 0546260, 7696359, 08032905 ####[facility] [address] [place] [address] INR Coag (PPP) [Relative time] 1.2 {INR} Invalid Interpretation Code [facility] Comment on above: Result Comment: INR results are specifically intended to assess patients stabilized on long-term Anticoagulation therapy suggested INR?s ?Less Intensive Anticoagulation? 2.0 ? 3.0 Conventional Range 3.0 ? 4.5 Performed By: #### 1 8506092, 2526130, 6300430, 3580697, 62979489 ####[facility] [address] [place] [address] PT Coag (PPP) [Time] 12.8 second(s) High 9.4-12.5 [facility] Comment on above: Result Comment: 15 d ays - 4 weeks 1 - 5 months 6 -11 months 1- 5 years 6-10 years 11 -17 years Mean: 11.2 (9.5-12.6) Mean: 11.0 (9.7-12.8) Mean: 11.0 (9.8-13.0) Mean: 11.3 (9.9-13.4) Mean: 11.7 (10.0-14.6) Mean: 11.8 (10.0 - 14.1) Pediatric Reference ranges were obtained from a study by Wellington Alcaraz et al. prepared from 1437 samples obtained at 7 different centers using the same coagulation reagent and instrumentation as [facility]. Currently there are no coagulation studies available worldwide for children to 14 days, and no normal ranges. Performed By: #### 1 0252523, 0051186, 4222024, 3235514, 12047590 ####[facility] [address] [place] [address] UA With Cult Reflexon 2022 Bacteria LM Ql (Urine sed) TRACE Normal Trace [facility] Comment on above: Performed By: #### 1 [id number] ####[facility] [address] [place] [address] Bilirubin Ql (U) Negative Normal Negative [facility] Comment on above: Performed By: #### 1 3005450 ####[facility] [address] [place] [address] Clarity (U) CLEAR Normal Clear [facility] Comment on above: Performed By: #### 1 7317119 ####[address] [address] Color (U) YELLOW Normal Yellow [facility] Comment on above: Performed By: #### 1 8328118 ####[facility] [address] [place] [address] Crystals LM Ql (Urine sed) Present Normal [facility] Comment on above: Performed By: #### 1 2223584 ####[address] [address] Epithelial cells.squamous LM.HPF (Urine sed) [#/Area] 0-2 Normal 0-2 [facility] Comment on above: Performed By: #### 1 2453998 ####[facility] [address] [place] [address] Glucose Test strip (U) [Mass/Vol] Negative Normal Negative [facility] Comment on above: Performed By: #### 1 6465771 ####[address] [address] Hemoglobin Ql (U) TRACE Abnormal Negative [facility] Comment on above: Performed By: #### 1 1759746 ####[facility] [address] [place] [address] Ketones (U) [Mass/Vol] Negative Normal Negative [facility] Comment on above: Performed By: #### 1 3222389 ####[facility] [address] [place] [address] [place].plasma/[place] .RBC (Bld) [Mass ratio] 4-20 Normal 0-3 [facility] Comment on above: Performed By: #### 1 0911647 ####[facility] [address] [place] [address] Mucus Ql (Urine sed) TRACE Normal [facility] Comment on above: Performed By: #### 1 [id number] ####[facility] [address] [place] [address] Nitrite Ql (U) Negative Normal Negative [facility] Comment on above: Performed By: #### 1 1509782 ####[address] [address] pH (U) 6.5 [pH] Invalid Interpretation Code 5.0-9.0 [facility] Comment on above: Performed By: #### 1 6158184 ####[address] [address] Protein (U) [Mass/Vol] Negative Normal Negative [facility] Comment on above: Performed By: #### 1 2349768 ####[address] [address] Specific gravity (U) [Rel density] 1.020 Invalid Interpretation Code 1.005-1.030 [facility] Comment on above: Performed By: #### 1 4384675 ####[address] [address] Type of Urine collection method Clean Catch Normal [facility] Comment on above: Performed By: #### 1 4083444 ####[address] [address] Urobilinogen Qn (U) 0.2 {Sharda'U}/dL Normal 0.0-1.0 [facility] Comment on above: Performed By: #### 1 8511223 ####[address] [address] WBC Auto Ql (U) Negative Normal Negative [facility] Comment on above: Performed By: #### 1 1300210 ####[address] [address] WBC LM.HPF (Urine sed) [#/Area] 0-5 Normal 0-5 [facility] Comment on above: Performed By: #### 1 0846584 ####[address] [place] [address] URINALYSISOrdered By: Lauren Tran on 07-14-2023 Bacteria LM Ql (Urine sed) Trace /HPF Normal Trace/HPF [facility] UA Auto SS Bilirubin Ql (U) Negative (07/14/23 10:42 AM) Normal Negative [facility] UA Auto SS Clarity (U) Clear (07/14/23 10:42 AM) Normal Clear [facility] UA Auto SS Color (U) Yellow (07/14/23 10:42 AM) Normal Yellow [facility] UA Auto SS Crystals LM Ql (Urine sed) Present (07/14/23 10:42 AM) Normal [facility] UA Auto SS Epithelial cells.squamous LM.HPF (Urine sed) [#/Area] 0-2 /HPF Normal 0-2/HPF [facility] UA Auto SS Glucose Test strip (U) [Mass/Vol] Negative (07/14/23 10:42 AM) Normal Negative [facility] UA Auto SS Hemoglobin Ql (U) Trace *ABN* (07/14/23 10:42 AM) Invalid Interpretation Code Negative [facility] UA Auto SS Ketones (U) [Mass/Vol] Negative (07/14/23 10:42 AM) Normal Negative [facility] UA Auto SS [place].plasma/[place] .RBC (Bld) [Mass ratio] 4-20 /HPF Normal 0-3/HPF [facility] UA Auto SS Mucus Ql (Urine sed) Trace (07/14/23 10:42 AM) Normal [facility] UA Auto SS Nitrite Ql (U) Negative (07/14/23 10:42 AM) Normal Negative [facility] UA Auto SS pH (U) 6.5 *NA* (07/14/23 10:42 AM) Invalid Interpretation Code 5.0 - 9.0 [facility] UA Auto SS Protein (U) [Mass/Vol] Negative (07/14/23 10:42 AM) Normal Negative [facility] UA Auto SS Specific gravity (U) [Rel density] 1.020 *NA* (07/14/23 10:42 AM) Invalid Interpretation Code 1.005 - 1.030 [facility] UA Auto SS UA Spec Desc Clean Catch (07/14/23 10:42 AM) Normal [facility] UA Auto SS Urobilinogen Qn (U) 0.0009096 {Sharda'U}/dL Normal 0.0 - 1.0 EU/dL [facility] UA Auto SS WBC Auto Ql (U) Negative (07/14/23 10:42 AM) Normal Negative [facility] UA Auto SS WBC LM.HPF (Urine sed) [#/Area] 0-5 /HPF Normal 0-5/HPF [facility] UA Auto SS XR Chest 2 Viewson 3 XR Chest 2 Views Exam Date/Time: 07/14/2023 11:06 EST Reason for Exam: P.A.T. Report IMPRESSION: There are no acute cardiopulmonary changes. CLINICAL HISTORY: P.A.T. EXAMINATION: XR Chest 2 Views COMPARISON: FINDINGS: The cardiomediastinal silhouette is unremarkable. The lungs are free of infiltrates effusions or consolidations. There are no acute osseous changes. Ordering Provider: Proctor Ahmad FINAL REPORT Dictated: 07/14/2023 12:12 pm William Mendenhall MD, V. Signed (Electronic Signature): 07/14/2023 12:12 pm Signed by: William Mendenhall MD, V. Transcribed by: LULA Technologist: KEM Technical Comments Radiation Dose: Ka,r in mGy = na DAP = na Normal [facility] eGFRon 07-14-2023 GFR/1.73 sq M.predicted among non-blacks MDRD (S/P/Bld) [Vol rate/Area] mL/min/{1.73_m2} Normal >=59 [facility] Comment on above: Order Comment: Order added by Discern Expert. Performed By: #### 1 [id number], 2106954, 4987456, 4697641, [id number] ####[facility] [address] [place] [address] Insurance Correspondenceon 1 09-13-2022 Insurance Correspondence [id number] Normal [facility] Alanine aminotransferase [En zymatic activity/volume] in Serum or PlasmaOrdered By: Ashley Rush on 07-06-2023 ALT [Catalytic activity/Vol] 49 U/L [facility] Albumin [Mass/volume] in Ser um or Plasma by Bromocresol green (BCG) dye binding methoOrdered By: Ashley Rush on 07-06-2023 Albumin BCG dye [Mass/Vol] 4.1 g/dL 3.5-5.7 [facility] Alkaline phosphatase [Enzyma tic activity/volume] in Serum or PlasmaOrdered By: Ashley Rush on 07-06-2023 ALP [Catalytic activity/Vol] 119 U/L 34-104 [facility] Aspartate aminotransferase [ Enzymatic activity/volume] in Serum or PlasmaOrdered By: Ashley Rush on 07-06-2023 AST [Catalytic activity/Vol] 22 U/L 13-39 [facility] Automated erythrocytes count in urine sediment (number/area)Ordered By: Ashley Rush on 07-06-2023 RBC Auto (Urine sed) [#/Area] 3-4 [HPF] 0-4 [facility] Automated leukocytes count i n urine sediment (number/area)Ordered By: Ashley Rush on 07-06-2023 WBC Auto (Urine sed) [#/Area] 3-4 [HPF] 0-4 [facility] Basophils Auto (Bld) [#/Vol] Ordered By: Ashley Rush on 07-06-2023 Basophils (Bld) [#/Vol] 0.0 10*3/uL 0.0-0.2 [facility] Basophils/100 WBC Auto (Bld) Ordered By: Ashley Rush on 07-06-2023 Basophils/100 WBC (Bld) 0.5 % . [facility] Bilirubin Test strip Ql (U)O rdered By: Ashley Rush on 07-06-2023 Bilirubin Ql (U) Negative Negative [facility] Bilirubin.total [Mass/volume ] in Serum or PlasmaOrdered By: Ashley Rush on 07-06-2023 Bilirubin [Mass/Vol] 0.4 mg/dL 0.3-1.0 [facility] Calcium [Mass/volume] in Ser um or PlasmaOrdered By: Ashley Rush on 07-06-2023 Calcium [Mass/Vol] 8.9 mg/dL 8.6-10.3 [facility] Carbon dioxide, total [Moles /volume] in Serum or PlasmaOrdered By: Ashley Rush on 07-06-2023 CO2 [Moles/Vol] 22.2 mmol/L 21.0-31.0 [facility] Chloride [Moles/volume] in S karla or PlasmaOrdered By: Ashley Rush on 07-06-2023 Chloride [Moles/Vol] 113 mmol/L 98-107 [facility] Color Auto (U)Ordered By: Leana Rush on 07-06-2023 Color (U) Yellow Yellow [facility] Creatinine [Mass/volume] in Serum or PlasmaOrdered By: Ashley Rush on 07-06-2023 Creatinine [Mass/Vol] 1.31 mg/dL 0.70-1.30 [facility] Eosinophils Auto (Bld) [#/Vo l]Ordered By: Ashley Rush on 07-06-2023 Eosinophils (Bld) [#/Vol] 0.1 10*3/uL 0.0-0.45 [facility] Eosinophils/100 WBC Auto (Bl d)Ordered By: Ashley Rush on 07-06-2023 Eosinophils/100 WBC (Bld) 2.1 % . [facility] Erythrocyte distribution wid th Auto (RBC) [Ratio]Ordered By: Ashley Rush on 07-06-2023 Erythrocyte distribution width (RBC) [Ratio] 12.7 % 12.0-14.8 [facility] Globulin Calc (S) [Mass/Vol] Ordered By: Ashley Rush 07-06-2023 Globulin (S) [Mass/Vol] 2.0 g/dL [facility] Glucose [Mass/volume] in Ser um or PlasmaOrdered By: Ashley Rush on 07-06-2023 Glucose [Mass/Vol] 144 mg/dL 70-100 [facility] Comment on above: ADA recommended refe rence rangeRandom Glucose Reference Range is dependent on time and content of last meal. Glucose of more than 200 mg/dL in a nonstressed, ambulatory subject supports the diagnosis of Diabetes Mellitus. Hematocrit Auto (Bld) [Volum e fraction]Ordered By: Ashley Rush on 07-06-2023 Hematocrit (Bld) [Volume fraction] 37.6 % 38.8-50.0 [facility] Hemoglobin [Mass/volume] in BloodOrdered By: Ashley Rush on 07-06-2023 Hemoglobin (Bld) [Mass/Vol] 13.1 g/dL 13.0-17.0 [facility] Ketones Auto test strip (U) [Mass/Vol]Ordered By: Ashley Rush on 07-06-2023 Ketones (U) [Mass/Vol] Trace Negative [facility] Laboratory - UrinalysisOrder ed By: Ashley Rush on 07-06-2023 Hyaline casts LM Ql (Urine sed) 9-19 [LPF] 0-8 [facility] Leukocytes [#/volume] correc velasquez for nucleated erythrocytes in Blood by Automated counOrdered By: Ashley Rush on 07-06-2023 WBC corrected for nucl RBC Auto (Bld) [#/Vol] 7.0 10*3/uL 4.1-10.5 [facility] Lipase [Enzymatic activity/v olume] in Serum or PlasmaOrdered By: Ashley Rush on 07-06-2023 Lipase [Catalytic activity/Vol] 56.0 U/L 11.0-82.0 [facility] Lymphocytes Auto (Bld) [#/Vo l]Ordered By: Ashley Rush on 07-06-2023 Lymphocytes (Bld) [#/Vol] 1.9 10*3/uL 1.00-4.8 [facility] Lymphocytes/100 WBC Auto (Bl d)Ordered By: Ashley Rush on 07-06-2023 Lymphocytes/100 WBC (Bld) 27.0 % . [facility] MCH Auto (RBC) [Entitic mass ]Ordered By: Ashley Rush on 07-06-2023 MCH (RBC) [Entitic mass] 33.7 pg 27.5-35.2 [facility] MCHC Auto (RBC) [Mass/Vol]Or dered By: Ashley Rush on 07-06-2023 MCHC (RBC) [Mass/Vol] 35.0 g/dL 32.5-35.6 [facility] MCV Auto (RBC) [Entitic vol] Ordered By: Ashley Rush on 07-06-2023 MCV (RBC) [Entitic vol] 96.3 fL 83.5-101 [facility] Monocyte distribution width [Entitic volume] in Blood by AutomatedOrdered By: Ashley Rush on 07-06-2023 Monocyte distribution width Auto (Bld) [Entitic vol] 17.96 % 0.00-20.00 [facility] Monocytes Auto (Bld) [#/Vol] Ordered By: Ashley Rush on 07-06-2023 Monocytes (Bld) [#/Vol] 0.6 10*3/uL 0.0-0.8 [facility] Monocytes/100 WBC Auto (Bld) Ordered By: Ashley Rush on 07-06-2023 Monocytes/100 WBC (Bld) 8.1 % . [facility] Neutrophils Auto (Bld) [#/Vo l]Ordered By: Ashley Rush on 07-06-2023 Neutrophils (Bld) [#/Vol] 4.3 10*3/uL 1.8-7.7 [facility] Neutrophils/100 WBC Auto (Bl d)Ordered By: Ashley Rush on 07-06-2023 Neutrophils/100 WBC (Bld) 62.3 % . [facility] Nitrite Test strip Ql (U)Ord ered By: Ashley Rush on 07-06-2023 Nitrite Ql (U) Negative Negative [facility] No Panel InformationOrdered By: Ashley Rush on 07-06-2023 Estimated GFR (CKD-EPI) > 60.0 mL/Min [facility] Creatinine Clearance (Chem 66.17 [facility] Nucleated erythrocytes [Pres ence] in Blood by Automated countOrdered By: Ashley Rush on 07-06-2023 Nucleated RBC Auto Ql (Bld) 0.1 /100{WBC} 0-0.5 [facility] Platelet mean volume Auto (B ld) [Entitic vol]Ordered By: Ashley Rush on 07-06-2023 Platelet mean volume (Bld) [Entitic vol] 8.5 fL 6.6-10.1 [facility] Platelets Auto (Bld) [#/Vol] Ordered By: Ashley Rush on 07-06-2023 Platelets (Bld) [#/Vol] 228 10*3/uL 150-450 [facility] Potassium [Moles/volume] in Serum or PlasmaOrdered By: Ashley Rush on 07-06-2023 Potassium [Moles/Vol] 3.7 mmol/L 3.5-5.1 [facility] Protein Auto test strip (U) [Mass/Vol]Ordered By: Ashley Rush on 07-06-2023 Protein (U) [Mass/Vol] 30 mg/dL Negative [facility] Protein [Mass/volume] in Ser um or PlasmaOrdered By: Ashley Rush on 07-06-2023 Protein [Mass/Vol] 6.1 g/dL 6.4-8.9 [facility] RBC Auto (Bld) [#/Vol]Ordere d By: Ashley Rush on 07-06-2023 RBC (Bld) [#/Vol] 3.91 10*6/uL 3.90-5.60 [facility] Serum or plasma albumin/glob ulin mass ratioOrdered By: Ashley Rush on 07-06-2023 Albumin/Globulin [Mass ratio] 2.1 {ratio} [facility] Serum or plasma anion gap de terminationOrdered By: Ashley Rush on 07-06-2023 Anion gap [Moles/Vol] 9.5 mmol/L 6.0-15.0 [facility] Sodium [Moles/volume] in Ser um or PlasmaOrdered By: Ashley Rush on 07-06-2023 Sodium [Moles/Vol] 141 mmol/L 136-145 [facility] Specific gravity Auto test s trip (U) [Rel density]Ordered By: Ashley Rush on 07-06-2023 Specific gravity (U) [Rel density] 1.019 1.001-1.030 [facility] Squamous epithelial cells de tection in urine sediment by light microscopyOrdered By: Ashley Rush on 07-06-2023 Epithelial cells.squamous LM Ql (Urine sed) 1-2 [HPF] 0-2 [facility] Urea nitrogen [Mass/volume] in Serum or PlasmaOrdered By: Ashley Rush on 07-06-2023 Urea nitrogen [Mass/Vol] 19 mg/dL 7- [facility] Urine bacteria detection by automated methodOrdered By: Ashley Rush on 07-06-2023 Bacteria Auto Ql (U) None seen None Seen [facility] Urine clarity by refractomet ry automatedOrdered By: Ashley Rush on 07-06-2023 Clarity Refractometry automated (U) Clear Clear [facility] Urine glucose measurement by automated test strip (mass/volume)Ordered By: Ashley Rush on 07-06-2023 Glucose Auto test strip (U) [Mass/Vol] Normal mg/dL Normal [facility] Urine hemoglobin detection b y automated test stripOrdered By: Ashley Rush on 07-06-2023 Hemoglobin Auto test strip Ql (U) Negative Negative [facility] Urine leukocyte esterase det ection by automated test stripOrdered By: Ashley Rush on 07-06-2023 Leukocyte esterase Auto test strip Ql (U) Negative Negative [facility] Urobilinogen Auto test strip (U) [Mass/Vol]Ordered By: Ashley Rush on 07-06-2023 Urobilinogen (U) [Mass/Vol] Normal mg/dL Normal [facility] WBC Auto (Bld) [#/Vol]Ordere d By: Ashley Rush on 07-06-2023 WBC (Bld) [#/Vol] 7.0 10*3/uL 4.1-10.5 [facility] pH Auto test strip (U)Ordere d By: Ashley Rush on 07-06-2023 pH (U) 7.0 [pH] 5.0-9.0 [facility] ED Note-Physicianon 07-05-20 ED Note-Physician [id number]#[id number] Normal [facility] Formson 07-05-2023 Forms [id number]#[id number] Normal [facility] Screenson 07-05-2023 Screens [id number]#[id number] [facility] Ambulatory Visit Summaryon 1 09-04-2022 Ambulatory Visit Summary FREEDOM RODGERS :1960 Visit Date:07/04/2023 Ambulatory Visit Instructions Your Diagnosis Ureteral stone Gross hematuria Tests Performed Urnls Dip Stick Auto w/o Microscopy POC 02087 US Renal -- Results Pending -- XR Abdomen 1 View -- Results Pending -- Please visit your patient portal for your results or contact your primary care physician. Your Care Team Attending Physician - Víctor BRADY MD Primary Care Physician - JESSEE MELENDEZ, ARCHIE Soriano This Is Your Medications List Contact prescribing physician if questions or concerns Misc Prescription (BIOTIN 10,000 MCG SOFTGEL) atorvastatin (atorvastatin 80 mg Tab) desvenlafaxine (desvenlafaxine 25 mg oral tablet, extended release) gabapentin (gabapentin 400 mg Cap) losartan (losartan 100 mg Tab) magnesium oxide (magnesium oxide 400 mg Tab) metoprolol (metoprolol 50 mg ER Tab) naltrexone (naltrexone 50 mg oral tablet) topiramate (topiramate 50 mg Tab) Procedures Performed Tonsillectomy and adenoidectomy (07/31/1970), Ablation, Colonoscopy, Nerve graft. Discharge Vitals Heart Rate (Peripheral) 70 Blood Pressure 120/74 Height 184 cm Height 72 in Weight 78.7 kg Weight 173.14 lb BMI 23.25 What to do next You Need to Schedule the Following Appointments Follow Up with MIAN MELENDEZ, Víctor Gonzáles, ANTONIA When: Where: [address] [place] [phone]- Medications What How Much When Instructions Unchanged atorvastatin (atorvastatin 80 mg Tab) 1 Tablets By Mouth Every day Contact prescribing physician if questions or concerns Unchanged desvenlafaxine (desvenlafaxine 25 mg oral tablet, extended release) 1 Tablets By Mouth Every day Contact prescribing physician if questions or concerns Unchanged gabapentin (gabapentin 400 mg Cap) 1 Capsules By Mouth 3 times a day Contact prescribing physician if questions or concerns Unchanged losartan (losartan 100 mg Tab) 1 Tablets By Mouth Every day Contact prescribing physician if questions or concerns Unchanged magnesium oxide (magnesium oxide 400 mg Tab) 1 Tablets By Mouth Every day Contact prescribing physician if questions or concerns Unchanged metoprolol (metoprolol 50 mg ER Tab) 1 Tablets By Mouth Every day Contact prescribing physician if questions or concerns Unchanged Misc Prescription (BIOTIN 10,000 MCG SOFTGEL) 0 Contact prescribing physician if questions or concerns Unchanged naltrexone (naltrexone 50 mg oral tablet) 1 Tablets By Mouth Every day Contact prescribing physician if questions or concerns Unchanged topiramate (topiramate 50 mg Tab) 1 Tablets By Mouth 2 times a day Contact prescribing physician if questions or concerns Test Results Urnls Dip Stick Auto w/o Microscopy POC 55565 (07/04/2023) Bilirubin Urine Dipstick - Negative Blood Urine Dipstick - Negative Glucose Urine Dipstick - Negative Ketones Urine Dipstick - Negative Leukocytes Urine Dipstick - Negative Nitrite Urine Dipstick - Negative Protein Urine Dipstick - Negative Specific [place] Urine Dipstick - 1.015 Urine Appearance Urine Dipstick - Clear Urine Color Urine Dipstick - Yellow Urobilinogen Urine Dipstick - Normal 0.2-1 EU/dl pH Urine Dipstick - 6.5 Allergies Seafood (Unknown) contrast media (iodine-based) (Hives) Problems Ongoing - Any problem that you are currently receiving treatment for. Atrial fibrillation Depression Gross hematuria Headaches, cluster Hypercholesterolemia Hypertension Kidney stones Smoker Ureteral stone Patient Survey You may receive a survey via text or e-mail asking about your office visit. Please share your experience with us by completing your survey. We appreciate your feedback and thank you for choosing us for your care. Education Materials Dietary Guidelines to Help Prevent Kidney Stones Kidney stones are deposits of minerals and salts that form inside your kidneys. Your risk of developing kidney stones may be greater depending on your diet, your lifestyle, the medicines you take, and whether you have certain medical conditions. Most people can lower their risks of developing kidney stones by following these dietary guidelines. Your dietitian may give you more specific instructions depending on your overall health and the type of kidney stones you tend to develop. What are tips for following this plan? Reading food labels ? Choose foods with no salt added or low-salt labels. Limit your salt (sodium) intake to less than 1,500 mg a day. ? Choose foods with calcium for each meal and snack. Try to eat about 300 mg of calcium at each meal. Foods that contain 200?500 mg of calcium a serving include: ? 8 oz (237 mL) of milk, wnjtmza-sqssxhfsligu-akgl y milk, and calcium-fortifiedfruit juice. Calcium-fortified means that calcium has been added to these drinks. ? 8 oz (237 mL) of kefir, yogurt, and soy yogurt. ? 4 oz (114 g) of tofu. ? (more content not included)... Normal [facility] Patient Educationon 07-04-20 Patient Education Nephrology Dietary Guidelines to Help Prevent Kidney Stones Kidney stones are deposits of minerals and salts that form inside your kidneys. Your risk of developing kidney stones may be greater depending on your diet, your lifestyle, the medicines you take, and whether you have certain medical conditions. Most people can lower their risks of developing kidney stones by following these dietary guidelines. Your dietitian may give you more specific instructions depending on your overall health and the type of kidney stones you tend to develop. What are tips for following this plan? Reading food labels ? Choose foods with no salt added or low-salt labels. Limit your salt (sodium) intake to less than 1,500 mg a day. ? Choose foods with calcium for each meal and snack. Try to eat about 300 mg of calcium at each meal. Foods that contain 200?500 mg of calcium a serving include: ? 8 oz (237 mL) of milk, atxwaxm-jylyxixwcbep-ghky y milk, and calcium-fortifiedfruit juice. Calcium-fortified means that calcium has been added to these drinks. ? 8 oz (237 mL) of kefir, yogurt, and soy yogurt. ? 4 oz (114 g) of tofu. ? 1 oz (28 g) of cheese. ? 1 cup (150 g) of dried figs. ? 1 cup (91 g) of cooked broccoli. ? One 3 oz (85 g) can of sardines or mackerel. Most people need 1,000?1,500 mg of calcium a day. Talk to your dietitian about how much calcium is recommended for you. Shopping ? Buy plenty of fresh fruits and vegetables. Most people do not need to avoid fruits and vegetables, even if these foods contain nutrients that may contribute to kidney stones. ? When shopping for convenience foods, choose: ? Whole pieces of fruit. ? Pre-made salads with dressing on the side. ? Low-fat fruit and yogurt smoothies. ? Avoid buying frozen meals or prepared deli foods. These can be high in sodium. ? Look for foods with live cultures, such as yogurt and kefir. ? Choose high-fiber grains, such as whole-wheat breads, oat bran, and wheat cereals. Cooking ? Do not add salt to food when cooking. Place a salt shaker on the table and allow each person to add their own salt to taste. ? Use vegetable protein, such as beans, textured vegetable protein (TVP), or tofu, instead of meat in pasta, casseroles, and soups. Meal planning ? Eat less salt, if told by your dietitian. To do this: ? Avoid eating processed or pre-made food. ? Avoid eating fast food. ? Eat less animal protein, including cheese, meat, poultry, or fish, if told by your dietitian. To do this: ? Limit the number of times you have meat, poultry, fish, or cheese each week. Eat a diet free of meat at least 2 days a week. ? Eat only one serving each day of meat, poultry, fish, or seafood. ? When you prepare animal proteins, cut pieces into small portion sizes. For most meat and fish, one serving is about the size of the palm of your hand. ? Eat at least five servings of fresh fruits and vegetables each day. To do this: ? Keep fruits and vegetables on hand for snacks. ? Eat one piece of fruit or a handful of berries with breakfast. ? Have a salad and fruit at lunch. ? Have two kinds of vegetables at dinner. ? You may be told to limit foods that are high in a substance called oxalate. These include: ? Spinach (cooked), rhubarb, beets, sweet potatoes, and Bermudian chard. ? Peanuts. ? Potato chips, macanese fries, and baked potatoes with skin on. ? Nuts and nut products. ? Chocolate. ? If you regularly take a diuretic medicine, make sure to eat at least 1 or 2 servings of fruits or vegetables that are high in potassium each day. These include: ? Avocado. ? Banana. ? Carver, prune, carrot, or tomato juice. ? Baked potato. ? Cabbage. ? Beans and split peas. Lifestyle ? Drink enough fluid to keep your urine pale yellow. This is the most important thing you can do. Spread your fluid intake throughout the day. ? If you drink alcohol: ? Limit how much you have to: ? 0?1 drink a day for women who are not . ? 0?2 drinks a day for men. ? Know how much alcohol is in your drink. In the [place] one drink equals one 12 oz bottle of beer (355 mL), one 5 oz glass of wine (148 mL), or one 1? oz glass of hard liquor (44 mL). ? Lose weight if told by your health care provider. Work with your dietitian to find an eating plan and weight loss strategies that work best for you. General information ? Talk to your health care provider and dietitian about taking daily supplements. Depending on your health and the cause of your kidney stones, you may be told: ? Do not take high-dose supplements of vitamin C (1,000 mg a day or more). ? To take a calcium supplement. ? To take a daily probiotic supplement. ? To take other supplements such as magnesium, fish oil, or vitamin B6. ? Take cock-rfv-wbrjdlo and prescription medicines only as told by your health care provider. These include supplements. What foods sh (more content not included)... Normal [facility] Urology Office/Clinic Noteon 07-04-2023 Urology Office/Clinic Note Chief Complaint New Pt HPI Staff Freedom is here for an [facility] [place] ER f/u to a visit from 06/23/23 c/o Lt lower abdominal pain. CT AP w/o Con 06/23/23 - punctate BL stones with a 2-3mm obstructing stone in the Lt UPJ w/ moderate hydro, there is a 3x7mm stone posteriorly in the bladder. D/c with Keflex, Tamsulosin, Oxycodone, and Zofran and instructions to f/u with our office. Labs 06/23/23 - BUN 18, Crea 1.16 Pt returned to the [facility] ER on 06/28/23 c/o worsening pain in his suprapubic pain, the oxycodone was not helping with pain. KUB 06/28/23 - one suspected stone at the Lt kidney, no definite stones on the Rt, small calcification overlaying the Lt sacrum measuring 3mm, question of interval migration of proximal Lt ureteral stone down to the level of the sacrum, no other suspected ureteral stones. Labs 06/28/23 - BUN 11, Crea 0.89 D/c with instructions of continuing with the meds from his first visit and f/u w/ our office. IPSS 24. Dysuria: denies pain or burning, states he gets a little sting when urinating Incomplete bladder emptying: denies Hematuria: denies visible blood within the last week, has increased with water intake Frequency: moderate intermittent Urgency: barely Nocturia: every 2 hours at least Stream: yes has hesitancy, yes weak stream Leaking: denies Post void dripping: denies Wearing pads/ Depends: denies Urge incontinence: denies Stress incontinence: denies Incontinence without Sensory Awareness: denies Abdominal pain: lower abdomen pain Flank pain: mid back pain Sexual complaints: denies History of Present Illness Tests reviewed: reviewed UA and External Records. I have reviewed the previous health record information and history for this patient from . I have reviewed and verified the staff HPI to be accurate for this encounter. There have been no associated fever, chills, flank pain, or blood in the urine. Denies any urinary infections since last encounter. Review of Systems PHQ Score Initial Depression Screen Score: 2 SCORE ROS - Provider Constitutional: denies weight loss, denies hot flashes. Eyes: denies eye problems. Gastrointestinal: denies nausea, denies vomiting. Cardiovascular: denies chest pain or angina. Integumentary: no dryness Musculoskeletal: denies musculoskeletal symptoms. ENMT: denies otolaryngeal symptoms. Respiratory: no shortness of breath. Heme/Lymph: denies easy bleeding tendency, denies easy bruising tendency. Psychiatric: no confusion, no anxiety. Genitourinary: See HPI. Physical Exam Vitals & Measurements HR: 70(Peripheral) BP: 120/74 HT: 72 in HT: 184 cm WT: 78.7 kg WT: 173.14 lb BMI: 23.25 General Appearance: alert, no distress, well nourished, well developed male. Genitourinary: normal scrotum, normal testes, normal urethra, normal epididymis, normal vas deferens/spermatic cord. Flank Pain: moderate pain in the LLQ. Assessment/Plan 1. Ureteral stone (N20.1: Calculus of ureter) [facility] ER f/u to a visit from 06/23/23 c/o Lt lower abdominal pain. CT AP w/o Con 06/23/23 - punctate BL stones with a 2-3mm obstructing stone in the Lt UPJ w/ moderate hydro, there is a 3x7mm stone posteriorly in the bladder. D/c with Keflex, Tamsulosin, Oxycodone, and Zofran and instructions to f/u with our office. Labs 06/23/23 - BUN 18, Crea 1.16 [facility] ER on 06/28/23 c/o worsening pain in his suprapubic pain, the oxycodone was not helping with pain. KUB 06/28/23 - one suspected stone at the Lt kidney, no definite stones on the Rt, small calcification overlaying the Lt sacrum measuring 3mm, question of interval migration of proximal Lt ureteral stone down to the level of the sacrum, no other suspected ureteral stones. Labs 06/28/23 - BUN 11, Crea 0.89 D/c with instructions of continuing with the meds from his first visit and f/u w/ our office IPSS 24 PE:pain in the LLQ Pt states that he had passed fragments of stones, has lower abdominal and mid lower back pain, still feels he has stones causing his sxs, pain occurs when he is standing, less painful when he sits down. Pt states that he used to drink Pepsi, has been drinking water since his first ER visit. Pt states that the pain he had on 06/23 was different then what he is feeling currently, when he lays in a different position, the pain moves. Advised pt that the pain he is currently having, is unrelated to the kidney stones. Advised pt that we will need to get a repeat image done to determine if there are any stones and where stones are there. Counseled pt on the possible causes of his pain if the imaging does not show any stones. Advised pt that if the imaging shows stones, then we will discuss having a stone procedure done. Follow up imaging results. All questions/concerns were discussed. Pt to call the office if he encounters any issues prior. Pt acknowledges understanding. -Will order KUB and ASTRID. 2. Gross hematuria (R31.0: Gross hematuria) Saw blood on 06/23/23 prior to going to the ER. Has not seen any since. UA (more content not included)... Normal [facility] Comment on above: Result Comment: Elec tronically Signed By: Víctor BRADY MD\.br\Date and Time Signed: 07/04/23 14:14 EST\.br\Electronically Co-Signed By: Ani Michelle\.br\Date and Time Co-Signed: 07/04/23 14:12 EST Alanine aminotransferase [En zymatic activity/volume] in Serum or PlasmaOrdered By: Dalton Hernandez on 06-28-2023 ALT [Catalytic activity/Vol] 32 U/L 7-52 [facility] Albumin [Mass/volume] in Ser um or Plasma by Bromocresol green (BCG) dye binding methoOrdered By: Dalton Hernandez on 06-28-2023 Albumin BCG dye [Mass/Vol] 4.4 g/dL 3.5-5.7 [facility] Alkaline phosphatase [Enzyma tic activity/volume] in Serum or PlasmaOrdered By: Dalton Hernandez on 06-28-2023 ALP [Catalytic activity/Vol] 128 U/L 34-104 [facility] Aspartate aminotransferase [ Enzymatic activity/volume] in Serum or PlasmaOrdered By: Dalton Hernandez on 06-28-2023 AST [Catalytic activity/Vol] 22 U/L 13-39 [facility] Basophils Auto (Bld) [#/Vol] Ordered By: Dalton Hernandez on 06-28-2023 Basophils (Bld) [#/Vol] 0.1 10*3/uL 0.0-0.2 [facility] Basophils/100 WBC Auto (Bld) Ordered By: Dalton Hernandez on 06-28-2023 Basophils/100 WBC (Bld) 0.9 % . [facility] Bilirubin Test strip Ql (U)O rdered By: Dalton Hernandez on 06-28-2023 Bilirubin Ql (U) Negative Negative [facility] Bilirubin.direct [Mass/volum e] in Serum or PlasmaOrdered By: Dalton Hernandez on 06-28-2023 Bilirubin.direct [Mass/Vol] 0.10 mg/dL 0.03-0.18 [facility] Bilirubin.total [Mass/volume ] in Serum or PlasmaOrdered By: Dalton Hernandez on 06-28-2023 Bilirubin [Mass/Vol] 0.4 mg/dL 0.3-1.0 [facility] Calcium [Mass/volume] in Ser um or PlasmaOrdered By: Dalton Hernandez on 06-28-2023 Calcium [Mass/Vol] 8.2 mg/dL 8.6-10.3 [facility] Carbon dioxide, total [Moles /volume] in Serum or PlasmaOrdered By: Dalton Hernandez on 06-28-2023 CO2 [Moles/Vol] 22.6 mmol/L 21.0-31.0 [facility] Chloride [Moles/volume] in S karla or PlasmaOrdered By: Dalton Hernandez on 06-28-2023 Chloride [Moles/Vol] 115 mmol/L 98-107 [facility] Color Auto (U)Ordered By: Manuela Hernandez on 06-28-2023 Color (U) Yellow Yellow [facility] Creatinine [Mass/volume] in Serum or PlasmaOrdered By: Dalton Hernandez on 06-28-2023 Creatinine [Mass/Vol] 0.89 mg/dL 0.70-1.30 [facility] Eosinophils Auto (Bld) [#/Vo l]Ordered By: Dalton Hernandez on 06-28-2023 Eosinophils (Bld) [#/Vol] 0.1 10*3/uL 0.0-0.45 [facility] Eosinophils/100 WBC Auto (Bl d)Ordered By: Dalton Hernandez on 06-28-2023 Eosinophils/100 WBC (Bld) 1.8 % . [facility] Erythrocyte distribution wid th Auto (RBC) [Ratio]Ordered By: Dalton Hernandez on 06-28-2023 Erythrocyte distribution width (RBC) [Ratio] 12.4 % 12.0-14.8 [facility] Globulin Calc (S) [Mass/Vol] Ordered By: Dalton Hernandez on 06-28-2023 Globulin (S) [Mass/Vol] 2.5 g/dL [facility] Glucose [Mass/volume] in Ser um or PlasmaOrdered By: Dalton Hernandez on 06-28-2023 Glucose [Mass/Vol] 82 mg/dL 70-100 [facility] Comment on above: ADA recommended refe rence rangeRandom Glucose Reference Range is dependent on time and content of last meal. Glucose of more than 200 mg/dL in a nonstressed, ambulatory subject supports the diagnosis of Diabetes Mellitus. Hematocrit Auto (Bld) [Volum e fraction]Ordered By: Dalton Hernandez on 06-28-2023 Hematocrit (Bld) [Volume fraction] 40.3 % 38.8-50.0 [facility] Hemoglobin [Mass/volume] in BloodOrdered By: Dalton Hernandez on 06-28-2023 Hemoglobin (Bld) [Mass/Vol] 14.1 g/dL 13.0-17.0 [facility] Ketones Auto test strip (U) [Mass/Vol]Ordered By: Dalton Hernandez on 06-28-2023 Ketones (U) [Mass/Vol] Negative Negative [facility] Leukocytes [#/volume] correc velasquez for nucleated erythrocytes in Blood by Automated counOrdered By: Dalton Hernandez on 06-28-2023 WBC corrected for nucl RBC Auto (Bld) [#/Vol] 6.8 10*3/uL 4.1-10.5 [facility] Lipase [Enzymatic activity/v olume] in Serum or PlasmaOrdered By: Dalton Hernandez on 06-28-2023 Lipase [Catalytic activity/Vol] 44.0 U/L 11.0-82.0 [facility] Lymphocytes Auto (Bld) [#/Vo l]Ordered By: Dalton Hernandez on 06-28-2023 Lymphocytes (Bld) [#/Vol] 1.6 10*3/uL 1.00-4.8 [facility] Lymphocytes/100 WBC Auto (Bl d)Ordered By: Dalton Hernandez on 06-28-2023 Lymphocytes/100 WBC (Bld) 22.9 % . [facility] MCH Auto (RBC) [Entitic mass ]Ordered By: Dalton Hernandez on 06-28-2023 MCH (RBC) [Entitic mass] 33.5 pg 27.5-35.2 [facility] MCHC Auto (RBC) [Mass/Vol]Or dered By: Dalton Hernandez on 06-28-2023 MCHC (RBC) [Mass/Vol] 35.1 g/dL 32.5-35.6 [facility] MCV Auto (RBC) [Entitic vol] Ordered By: Dalton Hernandez on 06-28-2023 MCV (RBC) [Entitic vol] 95.4 fL 83.5-101 [facility] Monocyte distribution width [Entitic volume] in Blood by AutomatedOrdered By: Dalton Hernandez on 06-28-2023 Monocyte distribution width Auto (Bld) [Entitic vol] 16.05 % 0.00-20.00 [facility] Monocytes Auto (Bld) [#/Vol] Ordered By: Dalton Hernandez on 06-28-2023 Monocytes (Bld) [#/Vol] 0.5 10*3/uL 0.0-0.8 [facility] Monocytes/100 WBC Auto (Bld) Ordered By: Dalton Hernandez on 06-28-2023 Monocytes/100 WBC (Bld) 7.7 % . [facility] Neutrophils Auto (Bld) [#/Vo l]Ordered By: Dalton Hernandez on 06-28-2023 Neutrophils (Bld) [#/Vol] 4.5 10*3/uL 1.8-7.7 [facility] Neutrophils/100 WBC Auto (Bl d)Ordered By: Dalton Hernandez on 06-28-2023 Neutrophils/100 WBC (Bld) 66.7 % . [facility] Nitrite Test strip Ql (U)Ord ered By: Dalton Hernandez on 06-28-2023 Nitrite Ql (U) Negative Negative [facility] No Panel InformationOrdered By: Dalton Hernandez on 06-28-2023 Estimated GFR (CKD-EPI) > 60.0 mL/Min [facility] Creatinine Clearance (Chem 97.63 [facility] Nucleated erythrocytes [Pres ence] in Blood by Automated countOrdered By: Dalton Hernandez on 06-28-2023 Nucleated RBC Auto Ql (Bld) 0.0 /100{WBC} 0-0.5 [facility] Platelet mean volume Auto (B ld) [Entitic vol]Ordered By: Dalton Hernandez on 06-28-2023 Platelet mean volume (Bld) [Entitic vol] 9.1 fL 6.6-10.1 [facility] Platelets Auto (Bld) [#/Vol] Ordered By: Dalton Hernandez on 06-28-2023 Platelets (Bld) [#/Vol] 224 10*3/uL 150-450 [facility] Potassium [Moles/volume] in Serum or PlasmaOrdered By: Dalton Hernandez on 06-28-2023 Potassium [Moles/Vol] 3.5 mmol/L 3.5-5.1 [facility] Protein Auto test strip (U) [Mass/Vol]Ordered By: Dalton Hernandez on 06-28-2023 Protein (U) [Mass/Vol] Negative Negative [facility] Protein [Mass/volume] in Ser um or PlasmaOrdered By: Dalton Hernandez on 06-28-2023 Protein [Mass/Vol] 6.9 g/dL 6.4-8.9 [facility] RBC Auto (Bld) [#/Vol]Ordere d By: Dalton Hernandez on 06-28-2023 RBC (Bld) [#/Vol] 4.22 10*6/uL 3.90-5.60 [facility] Serum or plasma albumin/glob ulin mass ratioOrdered By: Dalton Hernandez on 06-28-2023 Albumin/Globulin [Mass ratio] 1.8 {ratio} [facility] Serum or plasma anion gap de terminationOrdered By: Dalton Hernandez on 06-28-2023 Anion gap [Moles/Vol] 8.9 mmol/L 6.0-15.0 [facility] Serum or plasma non-glucuron idated bilirubin measurement (mass/volume)Ordered By: Dalton Hernandez on 06-28-2023 Bilirubin.indirect [Mass/Vol] 0.3 mg/dL [facility] Sodium [Moles/volume] in Ser um or PlasmaOrdered By: Dalton Hernandez on 06-28-2023 Sodium [Moles/Vol] 143 mmol/L 136-145 [facility] Specific gravity Auto test s trip (U) [Rel density]Ordered By: Dalton Hernandez on 06-28-2023 Specific gravity (U) [Rel density] 1.004 1.001-1.030 [facility] Urea nitrogen [Mass/volume] in Serum or PlasmaOrdered By: Dalton Hernandez on 06-28-2023 Urea nitrogen [Mass/Vol] 11 mg/dL 7-25 [facility] Urine clarity by refractomet ry automatedOrdered By: Dalton Hernandez on 06-28-2023 Clarity Refractometry automated (U) Clear Clear [facility] Urine glucose measurement by automated test strip (mass/volume)Ordered By: Dalton Hernandez on 06-28-2023 Glucose Auto test strip (U) [Mass/Vol] 250 mg/dL Normal [facility] Urine hemoglobin detection b y automated test stripOrdered By: Dalton Hernandez on 06-28-2023 Hemoglobin Auto test strip Ql (U) Negative Negative [facility] Urine leukocyte esterase det ection by automated test stripOrdered By: Dalton Hernandez on 06-28-2023 Leukocyte esterase Auto test strip Ql (U) Negative Negative [facility] Urobilinogen Auto test strip (U) [Mass/Vol]Ordered By: Dalton Hernandez on 06-28-2023 Urobilinogen (U) [Mass/Vol] Normal mg/dL Normal [facility] WBC Auto (Bld) [#/Vol]Ordere d By: Dalton Hernandez on 06-28-2023 WBC (Bld) [#/Vol] 6.8 10*3/uL 4.1-10.5 [facility] pH Auto test strip (U)Ordere d By: Dalton Hernandez on 06-28-2023 pH (U) 7.0 [pH] 5.0-9.0 [facility] ED Note-Physicianon 06-26-20 ED Note-Physician [id number] Normal [facility] Alanine aminotransferase [En zymatic activity/volume] in Serum or PlasmaOrdered By: Dalton Hernandez on 06-23-2023 ALT [Catalytic activity/Vol] 25 U/L 7-52 [facility] Albumin [Mass/volume] in Ser um or Plasma by Bromocresol green (BCG) dye binding methoOrdered By: Dalton Hernandez on 06-23-2023 Albumin BCG dye [Mass/Vol] 4.0 g/dL 3.5-5.7 [facility] Alkaline phosphatase [Enzyma tic activity/volume] in Serum or PlasmaOrdered By: Dalton Hernandez on 06-23-2023 ALP [Catalytic activity/Vol] 100 U/L 34-104 [facility] Aspartate aminotransferase [ Enzymatic activity/volume] in Serum or PlasmaOrdered By: Dalton Hernandez on 06-23-2023 AST [Catalytic activity/Vol] 16 U/L 13-39 [facility] Automated erythrocytes count in urine sediment (number/area)Ordered By: Dalton Hernandez on 06-23-2023 RBC Auto (Urine sed) [#/Area] Innumerable [HPF] 0-4 [facility] Automated leukocytes count i n urine sediment (number/area)Ordered By: Dalton Hernandez on 06-23-2023 WBC Auto (Urine sed) [#/Area] 5-9 [HPF] 0-4 [facility] Basophils Auto (Bld) [#/Vol] Ordered By: Dalton Hernandez on 06-23-2023 Basophils (Bld) [#/Vol] 0.1 10*3/uL 0.0-0.2 [facility] Basophils/100 WBC Auto (Bld) Ordered By: Dalton Hernandez on 06-23-2023 Basophils/100 WBC (Bld) 0.7 % . [facility] Bilirubin Test strip Ql (U)O rdered By: Dalton Hernandez on 06-23-2023 Bilirubin Ql (U) Negative Negative [facility] Bilirubin.direct [Mass/volum e] in Serum or PlasmaOrdered By: Dalton Hernandez on 06-23-2023 Bilirubin.direct [Mass/Vol] 0.10 mg/dL 0.03-0.18 [facility] Bilirubin.total [Mass/volume ] in Serum or PlasmaOrdered By: Dalton Hernandez on 06-23-2023 Bilirubin [Mass/Vol] 0.5 mg/dL 0.3-1.0 [facility] Calcium [Mass/volume] in Ser um or PlasmaOrdered By: Dalton Hernandez on 06-23-2023 Calcium [Mass/Vol] 8.6 mg/dL 8.6-10.3 [facility] Carbon dioxide, total [Moles /volume] in Serum or PlasmaOrdered By: Dalton Hernandez on 06-23-2023 CO2 [Moles/Vol] 21.1 mmol/L 21.0-31.0 [facility] Chloride [Moles/volume] in S karla or PlasmaOrdered By: Dalton Hernandez on 06-23-2023 Chloride [Moles/Vol] 116 mmol/L 98-107 [facility] Color Auto (U)Ordered By: Manuela Hernandez on 06-23-2023 Color (U) Carver Yellow [facility] Creatinine [Mass/volume] in Serum or PlasmaOrdered By: Dalton Hernandez on 06-23-2023 Creatinine [Mass/Vol] 1.16 mg/dL 0.70-1.30 [facility] Eosinophils Auto (Bld) [#/Vo l]Ordered By: Dalton Hernandez on 06-23-2023 Eosinophils (Bld) [#/Vol] 0.2 10*3/uL 0.0-0.45 [facility] Eosinophils/100 WBC Auto (Bl d)Ordered By: Dalton Hernandez on 06-23-2023 Eosinophils/100 WBC (Bld) 1.8 % . [facility] Erythrocyte distribution wid th Auto (RBC) [Ratio]Ordered By: Dalton Hernandez on 06-23-2023 Erythrocyte distribution width (RBC) [Ratio] 12.2 % 12.0-14.8 [facility] Globulin Calc (S) [Mass/Vol] Ordered By: Dalton Hernandez on 06-23-2023 Globulin (S) [Mass/Vol] 2.0 g/dL [facility] Glucose [Mass/volume] in Ser um or PlasmaOrdered By: Dalton Hernandez on 06-23-2023 Glucose [Mass/Vol] 138 mg/dL 70-100 [facility] Comment on above: ADA recommended refe rence rangeRandom Glucose Reference Range is dependent on time and content of last meal. Glucose of more than 200 mg/dL in a nonstressed, ambulatory subject supports the diagnosis of Diabetes Mellitus. Hematocrit Auto (Bld) [Volum e fraction]Ordered By: Dalton Hernandez on 06-23-2023 Hematocrit (Bld) [Volume fraction] 40.3 % 38.8-50.0 [facility] Hemoglobin [Mass/volume] in BloodOrdered By: Dalton Hernandez on 06-23-2023 Hemoglobin (Bld) [Mass/Vol] 14.2 g/dL 13.0-17.0 [facility] Ketones Auto test strip (U) [Mass/Vol]Ordered By: Dalton Hernandez on 06-23-2023 Ketones (U) [Mass/Vol] Trace Negative [facility] Laboratory - UrinalysisOrder ed By: Dalton Hernandez on 06-23-2023 Hyaline casts LM Ql (Urine sed) 0-8 [LPF] 0-8 [facility] Leukocytes [#/volume] correc velasquez for nucleated erythrocytes in Blood by Automated counOrdered By: Dalton Hernandez on 06-23-2023 WBC corrected for nucl RBC Auto (Bld) [#/Vol] 10.7 10*3/uL 4.1-10.5 [facility] Lipase [Enzymatic activity/v olume] in Serum or PlasmaOrdered By: Dalton Hernandez on 06-23-2023 Lipase [Catalytic activity/Vol] 54.0 U/L 11.0-82.0 [facility] Lymphocytes Auto (Bld) [#/Vo l]Ordered By: Dalton Hernandez on 06-23-2023 Lymphocytes (Bld) [#/Vol] 1.6 10*3/uL 1.00-4.8 [facility] Lymphocytes/100 WBC Auto (Bl d)Ordered By: Dalton Hernandez on 06-23-2023 Lymphocytes/100 WBC (Bld) 15.2 % . [facility] MCH Auto (RBC) [Entitic mass ]Ordered By: Dalton Hernandez on 06-23-2023 MCH (RBC) [Entitic mass] 33.6 pg 27.5-35.2 [facility] MCHC Auto (RBC) [Mass/Vol]Or dered By: Dalton Hernandez on 06-23-2023 MCHC (RBC) [Mass/Vol] 35.3 g/dL 32.5-35.6 [facility] MCV Auto (RBC) [Entitic vol] Ordered By: Dalton Hernandez on 06-23-2023 MCV (RBC) [Entitic vol] 95.2 fL 83.5-101 [facility] Monocyte distribution width [Entitic volume] in Blood by AutomatedOrdered By: Dalton Hernandez on 06-23-2023 Monocyte distribution width Auto (Bld) [Entitic vol] 15.88 % 0.00-20.00 [facility] Monocytes Auto (Bld) [#/Vol] Ordered By: Dalton Hernandez on 06-23-2023 Monocytes (Bld) [#/Vol] 0.8 10*3/uL 0.0-0.8 [facility] Monocytes/100 WBC Auto (Bld) Ordered By: Dalton Hernandez on 06-23-2023 Monocytes/100 WBC (Bld) 7.6 % . [facility] Neutrophils Auto (Bld) [#/Vo l]Ordered By: Dalton Hernandez on 06-23-2023 Neutrophils (Bld) [#/Vol] 8.0 10*3/uL 1.8-7.7 [facility] Neutrophils/100 WBC Auto (Bl d)Ordered By: Dalton Hernandez on 06-23-2023 Neutrophils/100 WBC (Bld) 74.7 % . [facility] Nitrite Test strip Ql (U)Ord ered By: Dalton Hernandez on 06-23-2023 Nitrite Ql (U) Negative Negative [facility] No Panel InformationOrdered By: Dalton Hernandez on 06-23-2023 Estimated GFR (CKD-EPI) > 60.0 mL/Min [facility] Creatinine Clearance (Chem 74.71 [facility] Nucleated erythrocytes [Pres ence] in Blood by Automated countOrdered By: Daltno Hernandez on 06-23-2023 Nucleated RBC Auto Ql (Bld) 0.0 /100{WBC} 0-0.5 [facility] Platelet mean volume Auto (B ld) [Entitic vol]Ordered By: Dalton Hernandez on 06-23-2023 Platelet mean volume (Bld) [Entitic vol] 8.8 fL 6.6-10.1 [facility] Platelets Auto (Bld) [#/Vol] Ordered By: Dalton Hernandez on 06-23-2023 Platelets (Bld) [#/Vol] 202 10*3/uL 150-450 [facility] Potassium [Moles/volume] in Serum or PlasmaOrdered By: Dalton Hernandez on 06-23-2023 Potassium [Moles/Vol] 3.8 mmol/L 3.5-5.1 [facility] Protein Auto test strip (U) [Mass/Vol]Ordered By: Dalton Hernandez on 06-23-2023 Protein (U) [Mass/Vol] 30 mg/dL Negative [facility] Protein [Mass/volume] in Ser um or PlasmaOrdered By: Dalton Hernandez on 06-23-2023 Protein [Mass/Vol] 6.0 g/dL 6.4-8.9 [facility] RBC Auto (Bld) [#/Vol]Ordere d By: Dalton Hernandez on 06-23-2023 RBC (Bld) [#/Vol] 4.23 10*6/uL 3.90-5.60 [facility] Serum or plasma albumin/glob ulin mass ratioOrdered By: Dalton Hernandez on 06-23-2023 Albumin/Globulin [Mass ratio] 2.0 {ratio} [facility] Serum or plasma anion gap de terminationOrdered By: Dalton Hernandez on 06-23-2023 Anion gap [Moles/Vol] 10.7 mmol/L 6.0-15.0 [facility] Serum or plasma non-glucuron idated bilirubin measurement (mass/volume)Ordered By: Dalton Hernandez on 06-23-2023 Bilirubin.indirect [Mass/Vol] 0.4 mg/dL [facility] Sodium [Moles/volume] in Ser um or PlasmaOrdered By: Dalton Hernandez on 06-23-2023 Sodium [Moles/Vol] 144 mmol/L 136-145 [facility] Specific gravity Auto test s trip (U) [Rel density]Ordered By: Dalton Hernandez on 06-23-2023 Specific gravity (U) [Rel density] 1.021 1.001-1.030 [facility] Squamous epithelial cells de tection in urine sediment by light microscopyOrdered By: Dalton Hernandez on 06-23-2023 Epithelial cells.squamous LM Ql (Urine sed) 0-1 [HPF] 0-2 [facility] Urea nitrogen [Mass/volume] in Serum or PlasmaOrdered By: Dalton Hernandez on 06-23-2023 Urea nitrogen [Mass/Vol] 18 mg/dL 7-25 [facility] Urine bacteria detection by automated methodOrdered By: Dalton Hernandez on 06-23-2023 Bacteria Auto Ql (U) None seen None Seen [facility] Urine clarity by refractomet ry automatedOrdered By: Dalton Hernandez on 06-23-2023 Clarity Refractometry automated (U) Turbid Clear [facility] Urine culture routineOrdered By: Dalton Hernandez on 06-23-2023 Bacteria identified Cx Nom (U) 2 Days [facility] Urine glucose measurement by automated test strip (mass/volume)Ordered By: Dalton Hernandez on 06-23-2023 Glucose Auto test strip (U) [Mass/Vol] Normal mg/dL Normal [facility] Urine hemoglobin detection b y automated test stripOrdered By: Dalton Hernandez on 06-23-2023 Hemoglobin Auto test strip Ql (U) 3+ Negative [facility] Urine leukocyte esterase det ection by automated test stripOrdered By: Dalton Hernandez on 06-23-2023 Leukocyte esterase Auto test strip Ql (U) 2+ Negative [facility] Urobilinogen Auto test strip (U) [Mass/Vol]Ordered By: Dalton Hernandez on 06-23-2023 Urobilinogen (U) [Mass/Vol] Normal mg/dL Normal [facility] WBC Auto (Bld) [#/Vol]Ordere d By: Dalton Hernandez on 06-23-2023 WBC (Bld) [#/Vol] 10.7 10*3/uL 4.1-10.5 [facility] pH Auto test strip (U)Ordere d By: Dalton Hernandez on 06-23-2023 pH (U) 6.5 [pH] 5.0-9.0 [facility] Activated partial thrombopla stin time (aPTT) in platelet poor plasma by coagulation aOrdered By: Myriam Galan on 04-27-2023 aPTT Coag (PPP) [Time] 29.6 s 25.1-36.5 [facility] Comment on above: A hematocrit value g reater than 55% may lead to inaccurate results in coagulation testing. Patients having hematocrit values >55% require a special collection tube for coagulation studies. Please contact the laboratory at [phone] for redraw instructions. Basophils Auto (Bld) [#/Vol] Ordered By: Myriam Galan on 04-27-2023 Basophils (Bld) [#/Vol] 0.0 10*3/uL 0.0-0.2 [facility] Basophils/100 WBC Auto (Bld) Ordered By: Myriam Galan on 04-27-2023 Basophils/100 WBC (Bld) 0.6 % . [facility] Carbon dioxide, total [Moles /volume] in Serum or PlasmaOrdered By: Myriam Galan on 04-27-2023 CO2 [Moles/Vol] 16.7 mmol/L 21.0-31.0 [facility] Chloride [Moles/volume] in S karla or PlasmaOrdered By: Myriam Galan on 04-27-2023 Chloride [Moles/Vol] 110 mmol/L 98-107 [facility] Cholesterol [Mass/volume] in Serum or PlasmaOrdered By: Myriam Galan on 04-27-2023 Cholesterol [Mass/Vol] 128 mg/dL 140-200 [facility] Comment on above: Chol less than 200 m g/dl low riskChol 201-239 mg/dl borderline riskChol 240 mg/dl and greater high risk Cholesterol in LDL Calc [Mas s/Vol]Ordered By: Myriam Galan on 04-27-2023 Cholesterol in LDL [Mass/Vol] 69 mg/dL 0-100 [facility] Comment on above: LDL ATP III CLASSIFI CATIONLDL less than 100 mg/dL OptimalLDL 100-129 mg/dL Near or above optimalLDL 130-159 mg/dL Borderline highLDL 160-189 mg/dL HighLDL greater than 189 mg/dL Very high Cholesterol in VLDL Calc [Ma ss/Vol]Ordered By: Myriam Galan on 04-27-2023 Cholesterol in VLDL [Mass/Vol] 18 mg/dL [facility] Creatinine [Mass/volume] in Serum or PlasmaOrdered By: Myriam Galan on 04-27-2023 Creatinine [Mass/Vol] 0.97 mg/dL 0.70-1.30 [facility] Eosinophils Auto (Bld) [#/Vo l]Ordered By: Myriam Galan on 04-27-2023 Eosinophils (Bld) [#/Vol] 0.1 10*3/uL 0.0-0.45 [facility] Eosinophils/100 WBC Auto (Bl d)Ordered By: Myriam Galan on 04-27-2023 Eosinophils/100 WBC (Bld) 1.4 % . [facility] Erythrocyte distribution wid th Auto (RBC) [Ratio]Ordered By: Myriam Galan on 04-27-2023 Erythrocyte distribution width (RBC) [Ratio] 12.5 % 12.0-14.8 [facility] Hematocrit Auto (Bld) [Volum e fraction]Ordered By: Myriam Galan on 04-27-2023 Hematocrit (Bld) [Volume fraction] 44.6 % 38.8-50.0 [facility] Hemoglobin [Mass/volume] in BloodOrdered By: Myriam Galan on 04-27-2023 Hemoglobin (Bld) [Mass/Vol] 15.5 g/dL 13.0-17.0 [facility] INR in Platelet poor plasma by Coagulation assayOrdered By: Myriam Galan on 04-27-2023 INR Coag (PPP) [Relative time] 1.0 {INR} [facility] Comment on above: INR Therapeutic Rang e A) Pre- and Peroperative OAT started two weeks before surgery. NOT HIP SURGERY: 1.5 - 2.5 HIP SURGERY: 2 - 3B) Primary and secondary prevention of venous THROMBOSIS: 2 - 3C) Active venous thrombosis, pulmonary embolismand prevention of recurrent venous thrombosis: 2 - 3D) Prevention of arterial thromboembolismincluding patients with mechanical heart valves: 3 - 4.5 Laboratory - Chemistry and C hemistry - challengeon 04-27-2023 Cholesterol [Mass/Vol] 128\S\128 below low threshold 140-200 [facility] [employer] [address] DO Work Phone: Comment on above: Chol less than 200 m g/dl low risk Chol 201-239 mg/dl borderline risk Chol 240 mg/dl and greater high risk Cholesterol in LDL [Mass/Vol] 69\S\69 Normal 0-100 [facility] [employer] 250 DO Work Phone: Comment on above: LDL ATP III CLASSIFI CATION LDL less than 100 mg/dL Optimal LDL 100-129 mg/dL Near or above optimal LDL 130-159 mg/dL Borderline high LDL 160-189 mg/dL High LDL greater than 189 mg/dL Very high Leukocytes [#/volume] correc velasquez for nucleated erythrocytes in Blood by Automated counOrdered By: Myriam Galan on 04-27-2023 WBC corrected for nucl RBC Auto (Bld) [#/Vol] 6.8 10*3/uL 4.1-10.5 [facility] Lymphocytes Auto (Bld) [#/Vo l]Ordered By: Myriam Galan on 04-27-2023 Lymphocytes (Bld) [#/Vol] 1.7 10*3/uL 1.00-4.8 [facility] Lymphocytes/100 WBC Auto (Bl d)Ordered By: Myriam Galan on 04-27-2023 Lymphocytes/100 WBC (Bld) 24.5 % . [facility] MCH Auto (RBC) [Entitic mass ]Ordered By: Myriam Galan on 04-27-2023 MCH (RBC) [Entitic mass] 33.4 pg 27.5-35.2 [facility] MCHC Auto (RBC) [Mass/Vol]Or dered By: Myriam Galan on 04-27-2023 MCHC (RBC) [Mass/Vol] 34.6 g/dL 32.5-35.6 [facility] MCV Auto (RBC) [Entitic vol] Ordered By: Myriam Galan on 04-27-2023 MCV (RBC) [Entitic vol] 96.5 fL 83.5-101 [facility] Monocytes Auto (Bld) [#/Vol] Ordered By: Myriam Galan on 04-27-2023 Monocytes (Bld) [#/Vol] 0.4 10*3/uL 0.0-0.8 [facility] Monocytes/100 WBC Auto (Bld) Ordered By: Myriam Galan on 04-27-2023 Monocytes/100 WBC (Bld) 6.4 % . [facility] Neutrophils Auto (Bld) [#/Vo l]Ordered By: Myriam Galan on 04-27-2023 Neutrophils (Bld) [#/Vol] 4.6 10*3/uL 1.8-7.7 [facility] Neutrophils/100 WBC Auto (Bl d)Ordered By: Myriam Galan on 04-27-2023 Neutrophils/100 WBC (Bld) 67.1 % . [facility] No Panel InformationOrdered By: Myriam Galan on 04-27-2023 Estimated GFR (CKD-EPI) > 60.0 mL/Min [facility] Creatinine Clearance (Chem N/A [facility] No Panel Informationon 04-27 29.6\S\29.6 Normal 25.1-36.5 [facility] [employer] 250 DO Work Phone: Comment on above: A hematocrit value g reater than 55% may lead to inaccurate results in coagulation testing. Patients having hematocrit values >55% require a special collection tube for coagulation studies. Please contact the laboratory at [phone] for redraw instructions.PERFORMED BY:[id number] [place], [place] [phone] MEDICAL DIRECTORJADEN LIRA M.D. 1.0\S\1.0 Normal [facility] [employer] 250 DO Work Phone: Comment on above: INR Therapeutic Rang e A) Pre- and Peroperative OAT started two weeks before surgery. NOT HIP SURGERY: 1.5 - 2.5 HIP SURGERY: 2 - 3 B) Primary and secondary prevention of venous THROMBOSIS: 2 - 3 C) Active venous thrombosis, pulmonary embolism and prevention of recurrent venous thrombosis: 2 - 3 D) Prevention of arterial thromboembolism including patients with mechanical heart valves: 3 - 4.5 12.0\S\12.0 Normal 9.0-12.9 [facility] 250 DO Work Phone: Comment on above: A hematocrit value g reater than 55% may lead to inaccurate results in coagulation testing. Patients having hematocrit values >55% require a special collection tube for coagulation studies. Please contact the laboratory at [phone] for redraw instructions. 0.0\S\0.0 Normal 0.0-0.2 -[facility] melody 250 DO Work Phone: Comment on above: PERFORMED BY:[address] [place], [place] [phone] MEDICAL DIRECTORJADEN LIRA M.D. 0.1\S\0.1 Normal 0-0.5 [facility] 250 DO Work Phone: 0.4\S\0.4 Normal 0.0-0.8 [facility] 250 DO Work Phone: 1.7\S\1.7 Normal 1.00-4.8 [facility] 250 DO Work Phone: 4.6\S\4.6 Normal 1.8-7.7 [facility] 250 DO Work Phone: 0.6\S\0.6 Normal . [facility] 250 DO Work Phone: 1.4\S\1.4 Normal . [facility] 250 DO Work Phone: 6.4\S\6.4 Normal . [facility] 250 DO Work Phone: 24.5\S\24.5 Normal . [facility] 250 DO Work Phone: [phone] 67.1\S\67.1 Normal . [facility] 250 DO Work Phone: [phone] 10.1\S\10.1 Normal 6.6-10.1 [facility] 250 DO Work Phone: [phone] 190\S\190 Normal 150-450 [facility] 250 DO Work Phone: [phone] 12.5\S\12.5 Normal 12.0-14.8 [facility] 250 DO Work Phone: [phone] 34.6\S\34.6 Normal 32.5-35.6 [facility] 250 DO Work Phone: [phone] 33.4\S\33.4 Normal 27.5-35.2 [facility] 250 DO Work Phone: [phone] 96.5\S\96.5 Normal 83.5-101 [facility] 250 DO Work Phone: [phone] 44.6\S\44.6 Normal 38.8-50.0 [facility] 250 DO Work Phone: [phone] 15.5\S\15.5 Normal 13.0-17.0 [facility] 250 DO Work Phone: [phone] 4.63\S\4.63 Normal 3.90-5.60 [facility]Cytocentric[facility] 250 DO Work Phone: [phone] 6.8\S\6.8 Normal 4.1-10.5 [facility] 250 DO Work Phone: [phone] Test not performed\S \Test not performed Normal 6.0-15.0 [facility] 250 DO Work Phone: [phone] 16.7\S\16.7 below low threshold 21.0-31.0 [facility] oliver 250 DO Work Phone: 110\S\110 above high threshold 98-107 [facility] 250 DO Work Phone: [phone] Normal 3.5-5.1 [facility] 250 DO Work Phone: Comment on above: Specimen hemolyzed, redraw requested LFM 139\S\139 Normal 136-145 [facility] 250 DO Work Phone: 19\S\19 Normal 7-25 [facility] 250 DO Work Phone: > 60.0 Normal [facility] 250 DO Work Phone: [phone] 0.97\S\0.97 Normal 0.70-1.30 [facility] 250 DO Work Phone: 3.2\S\3.2 Normal <5.0 [facility] 250 DO Work Phone: Comment on above: PERFORMED BY:[address] [place], [place] [phone] MEDICAL DIRECTORJADEN LIRA M.D. 18\S\18 Normal [facility] Frances oliver 250 DO Work Phone: 94\S\94 Normal 0-149 [facility] Work Phone: Comment on above: TRIG ATP III CLASSIF ICATION TRIG less than 150 mg/dL Normal TRIG 150-199 mg/dL Borderline high TRIG 200-500 mg/dL High TRIG greater than 500 mg/dL Very high Standard traceable to the Center for Disease Conrtrol and Prevention (CDC) test method. 40\S\40 Normal 23-92 [facility] 250 DO Work Phone: Comment on above: HDL CHOL ATP-III CLA SSIFICATION Cardiovascular Risk HDL > or equal to 60 mg/dL LOW HDL < 40 mg/dL HIGH Nucleated erythrocytes [Pres ence] in Blood by Automated countOrdered By: Myriam Galan on 04-27-2023 Nucleated RBC Auto Ql (Bld) 0.1 /100{WBC} 0-0.5 [facility] Platelet mean volume Auto (B ld) [Entitic vol]Ordered By: Myriam Galan on 04-27-2023 Platelet mean volume (Bld) [Entitic vol] 10.1 fL 6.6-10.1 [facility] Platelets Auto (Bld) [#/Vol] Ordered By: Myriam Galan on 04-27-2023 Platelets (Bld) [#/Vol] 190 10*3/uL 150-450 [facility] Potassium [Moles/volume] in Serum or PlasmaOrdered By: Myriam Galan on 04-27-2023 Potassium [Moles/Vol] See comment 3.5-5.1 [facility] Comment on above: Specimen hemolyzed, redraw requested LFM Prothrombin time (PT)Ordered By: Myriam Galan on 04-27-2023 PT Coag (PPP) [Time] 12.0 s 9.0-12.9 [facility] Comment on above: A hematocrit value g reater than 55% may lead to inaccurate results in coagulation testing. Patients having hematocrit values >55% require a special collection tube for coagulation studies. Please contact the laboratory at [phone] for redraw instructions. RBC Auto (Bld) [#/Vol]Ordere d By: Myriam Galan on 04-27-2023 RBC (Bld) [#/Vol] 4.63 10*6/uL 3.90-5.60 [facility] Serum or plasma anion gap de terminationOrdered By: Myriam Galan on 04-27-2023 Anion gap [Moles/Vol] TNP [facility] Comment on above: Test not performed Serum or plasma high density lipoprotein (HDL) cholesterol measurementOrdered By: Myriam Galan on 04-27-2023 Cholesterol in HDL [Mass/Vol] 40 mg/dL 23-92 [facility] Comment on above: HDL CHOL ATP-III CLA SSIFICATION Cardiovascular RiskHDL > or equal to 60 mg/dL LOWHDL < 40 mg/dL HIGH Serum or plasma total choles terol/high density lipoprotein (HDL) cholesterol mass ratOrdered By: Myriam Galan on 04-27-2023 Cholesterol.total/Chol esterol in HDL [Mass ratio] 3.2 {ratio} <5.0 [facility] Sodium [Moles/volume] in Ser um or PlasmaOrdered By: Myriam Galan on 04-27-2023 Sodium [Moles/Vol] 139 mmol/L 136-145 [facility] Triglyceride [Mass/volume] i n Serum or PlasmaOrdered By: Myriam Galan on 04-27-2023 Triglyceride [Mass/Vol] 94 mg/dL 0-149 [facility] Comment on above: TRIG ATP III CLASSIF ICATIONTRIG less than 150 mg/dL NormalTRIG 150-199 mg/dL Borderline highTRIG 200-500 mg/dL High TRIG greater than 500 mg/dL Very highStandard traceable to the Center for Disease Conrtrol and Prevention (CDC) test method. 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 Prescriptions will not be filled unless you are compliant with your follow up appointments or have a follow up appointment scheduled as per instruction of your physician. Refills should be requested at the time of your visit. F/U AFTER TESTINGT Chief Complaint FREEDOM RODGERS is being seen for a 2 month follow-up of. Patient is 62-year-old gentleman who returns for follow-up with chief complaints of daily retrosternal/epigastric chest discomfort that radiates to the midportion of his back that is somewhat lifestyle limiting and noted with exertion and even at rest. He also has chronic complaints of fatigue, anxiety. He is noted to have glucose intolerance by his own admonition from recent testing. He has a remote history of SVT details of which are reviewed from Dr. Seals's original consultation and Dr. Rodriguez notes from [facility]. He has normal stress perfusion imaging in January 2023, calcium CT scoring that was noted for moderate calcification in the LAD distribution with a calcium score 435, LAD was 381; consistent with moderately increased risk for coronary artery disease. Patient does have underlying hypertension, alcohol abuse, currently clean and those notes and consults are also reviewed from psychiatry. Risks, benefits and alternatives and informed decision-making process performed with patient this morning for 30 minutes, he would like something further in regards to diagnostic testing for his severe chest discomfort and thus we will proceed with diagnostic left heart catheterization to further address his clinical issues and calcium score. If negative will refer to GI if positive consider revascularization if appropriate Surgical History Problems History of Catheter ablation History of Cholecystectomy History of Colonoscopy History of Lithotripsy History of Tonsillectomy History of Wrist surgery Current Meds Medication NameInstruction Aspirin EC 81 MG TBECTAKE 1 TABLET DAILY. Atorvastatin Calcium 80 MG Oral TabletTAKE 1 TABLET DAILY. Biotin 10 MG Oral TabletTAKE DIRECTED. Gabapentin 400 MG TABSTAKE 1 TABLET 3 TIMES DAILY. Losartan Potassium 100 MG Oral TabletTAKE 1 TABLET DAILY. Magnesium Oxide 400 MG Oral Tablettake 1 tablet by mouth once daily Metoprolol Succinate ER 50 MG Oral Tablet Extended Release 24 HourTake 1 tablet daily Pantoprazole Sodium 40 MG Oral Tablet Delayed ReleaseTAKE 1 TABLET DAILY. Spironolactone 25 MG Oral TabletTAKE 1 TABLET DAILY. Topiramate 50 MG Oral TabletTAKE 1 TABLET TWICE DAILY. Patient did not bring medication list or bottles. Updated verbally with patient Allergies Medication Iodinated Contrast Media Recorded By: Ty Griffin; 01/25/2023 8:27:20 AM Shellfish-derived Products Recorded By: Ty Griffin; 01/25/2023 8:27:20 AM Social History Problems Current smoker (305.1) (F17.200) 2 ppd No illicit drug use Occasional caffeine consumption Social alcohol use (V49.89) (Z78.9) Review of Systems Constitutional: not feeling tired. Cardiovascular: chest pain and palpitations, but no intermittent leg claudication and as noted in HPI. Respiratory: shortness of breath during exertion, but no cough and no shortness of breath. Gastrointestinal: no change in bowel habits and no blood in stools. Integumentary: no skin rashes. Neurological: dizziness, but no seizures and no frequent falls. All other systems have been reviewed and are negative for complaint. Vitals Vital Signs Recorded: [id number] 11:27AM Heart Rate62, L Radial Sukbykca756, LUE, Sitting Tcjpiireq81, LUE, Sitting Height6 ft 1 in Nhflwd089 lb BMI Ixoqyamvxt41.96 kg/m2 BSA Calculated2.03 Tobacco Usea) Yes Patient encouraged to stop using tobacco productsYes PHQ-2 Patient Declined/Screening not indicatedYes Falls Screening (Age 18+)c) Not medically indicated Physical Exam Constitutional: alert and in no acute distress. Neck: neck is supple, symmetric, trachea midline, no masses and no thyromegaly . Pulmonary: no increased work of breathing or signs of respiratory distress and lungs clear to auscultation. Cardiovascular: caroti (more content not included)... Normal [facility] Tobacco Screening.on 023 Fall risk assessment c) Not medically indicated [facility] [employer] 250 DO Work Phone: Tobacco use status [facility] a) Yes [facility] [employer] 250 DO Work Phone: Tobacco Screening. Yes [facility] 250 DO Work Phone: CT CARDIAC SCORINGon 023 CT CARDIAC SCORING Addendum Begins Patient Name: FREEDOM RODGERS ADDENDUM: Technical: The following is to serve as an over-read for an unenhanced cardiac CT, to evaluate the extra vascular structures. Contiguous unenhanced CT sections are performed from level of the ivan to the upper abdomen. Findings: The visualized portions of both lungs are clear. There is no sign of pathologic lymph node enlargement. There is no pericardial or pleural effusion. Images through the upper abdomen are unremarkable. The visualized osseous and soft tissue structures of the chest wall are intact. Impression: The extra vascular structures have an unremarkable CT appearance. Electronically signed by: LILLY MONREAL MD Addendum Ends Patient Name: FREEDOM RODGERS STUDY: CT CARDIAC SCORING; 04/01/2023 9:32 am INDICATION: chest pain F17.200: Current smoker R07.89: Chest pain, atypical I10: Hypertension, benign. COMPARISON: None. ACCESSION NUMBER(S): [id number] ORDERING CLINICIAN: LEONEL SANDOVAL TECHNIQUE: Using prospective ECG gating, CT scan of the coronary arteries was performed without intravenous contrast. Coronary calcium scoring was performed according to the method of Agatston. CT Dose-Length Product (DLP): 65.1 mGy*cm CT Dose Reduction Employed: Yes, prospective gating, iterative reconstruction. FINDINGS: The score and distribution of calcium in the coronary arteries is as follows: LM 4 LAD 381 LCx 50 RCA 0 Total 435 The visualized ascending thoracic aorta measures 3.6 cm in diameter. The heart is normal in size. No pericardial effusion is present. The main pulmonary artery, right and left pulmonary artery are normal in size. IMPRESSION: 1. Coronary artery calcium score of 435*. 2. SCOTT 89th percentile for age, gender, and race in asymptomatic patients. *Coronary Artery Agatston score Score risk Very low 1-99 Mildly increased 100-299 Moderately increased >300 Moderate to severely increased >800 Emily et al. JCCT 2016 (http://dx.doi.org/10.101 6/j.jcct.2016.11.003) SCOTT Percentile In general, greater than 75th percentile for age, gender, and race is considered to be a higher relative risk and higher lifetime risk condition. Greater than 75th percentile=moderate to severely increased relative risk irrespective of the score. Advise using SCOTT 10 year CHD risk calculator below for better discrimination of risk. SCOTT 10-Year CHD Risk with Coronary Artery Calcification can be calcuate using link below https://www.scott-nhlbi.or g/MESACHDRisk/MesaRiskSco re/RiskScore.aspx Andrez rojas al. JACC 2015 (http://dx.doi.org/10.101 6/j.j acc.2015.08.035) Reading Hse Manager: Dr. Jd Sánchez, Date: 04/03/2023 6:01 pm Electronically signed by: LILLY MONREAL MD Normal [facility] CT Cardiac Scoringon 023 CT Cardiac Scoring Normal -[facility] melody 250 DO Work Phone: Cholesterol [Mass/volume] in Serum or PlasmaOrdered By: Serafin Capps on 03-02-2023 Cholesterol [Mass/Vol] 144 mg/dL 140-200 [facility] Comment on above: Chol less than 200 m g/dl low riskChol 201-239 mg/dl borderline riskChol 240 mg/dl and greater high risk Cholesterol in LDL Calc [Mas s/Vol]Ordered By: Serafin Capps on 03-02-2023 Cholesterol in LDL [Mass/Vol] 48 mg/dL 0-100 [facility] Comment on above: LDL ATP III CLASSIFI CATIONLDL less than 100 mg/dL OptimalLDL 100-129 mg/dL Near or above optimalLDL 130-159 mg/dL Borderline highLDL 160-189 mg/dL HighLDL greater than 189 mg/dL Very high Cholesterol in VLDL Calc [Ma ss/Vol]Ordered By: Serafin Capps on 03-02-2023 Cholesterol in VLDL [Mass/Vol] 59 mg/dL [facility] Serum or plasma high density lipoprotein (HDL) cholesterol measurementOrdered By: Serafin Capps on 03-02-2023 Cholesterol in HDL [Mass/Vol] 36 mg/dL 23-92 [facility] Comment on above: HDL CHOL ATP-III CLA SSIFICATION Cardiovascular RiskHDL > or equal to 60 mg/dL LOWHDL < 40 mg/dL HIGH Serum or plasma total choles terol/high density lipoprotein (HDL) cholesterol mass ratOrdered By: Serafin Capps on 03-02-2023 Cholesterol.total/Chol esterol in HDL [Mass ratio] 4.0 {ratio} <5.0 [facility] Thyrotropin [Units/volume] i n Serum or PlasmaOrdered By: Serafin Capps on 03-02-2023 TSH Qn 1.79 m[IU]/L 0.45-5.33 [facility] Triglyceride [Mass/volume] i n Serum or PlasmaOrdered By: Serafin Capps on 03-02-2023 Triglyceride [Mass/Vol] 299 mg/dL 0-149 [facility] Comment on above: TRIG ATP III CLASSIF ICATIONTRIG less than 150 mg/dL NormalTRIG 150-199 mg/dL Borderline highTRIG 200-500 mg/dL High TRIG greater than 500 mg/dL Very highStandard traceable to the Center for Disease Conrtrol and Prevention (CDC) test method. Vitamin D+Metabolites [Mass/ volume] in Serum or PlasmaOrdered By: Serafin Capps on 03-02-2023 Vitamin D+Metabolites [Mass/Vol] 28.5 ng/mL 30-100 [facility] Comment on above: VITAMIN D STATUS 25( [place])VITAMIN D RANGE (ng/mL) Deficient <20 Insufficient 20 to <30Sufficient 30 to 100Reference: Cecelia MF,[place], Ed PATEL, et al. Evaluation,treatment, and prevention of vitamin D deficiency; an Endocrine Society clinical practice guideline. JCEM. 2010; 96(7):1911-30. Office Visit (Cardiology)on 02-20-2023 Follow-up visit Diagnoses/Problems Assessed Chest pain, atypical (786.59) (R07.89) December 2022 admit: atypical chest pain r/o ACS January 2023 MPI no ischemia Daily activity > 4 METS without concerning symptoms Palpitation (785.1) (R00.2) AVNRT ablation at [facility] > 2 years ago January 2023 Holter: ave HR 68, rare PVC, 5.9% PAC Palpitations reduced with addition aldactone Hypertension, benign (401.1) (I10) optimal in office Mixed hyperlipidemia (272.2) (E78.2) On statin December 2022 LDL 61, HDL 42 Echocardiogram abnormal (793.2) (R93.1) December 2022 Echo LVEF 55-60% MR trace RVSP 34 Current smoker (305.1) (F17.200) 'slowing down' no benefit patches Type 2 diabetes mellitus without complication, without long-term current use of insulin (250.00) (E11.9) Diet controlled On statin/ARB most recent HgA1c 6.1 Body mass index (BMI) of 23.0 to 23.9 in adult (V85.1) (Z68.23) Orders SocHx: Current smoker You need to stop smoking. Though it is not easy, more than half of all adult smokers have quit. We encourage you to write down all the reasons you should quit smoking and set a quit date for yourself. Ask us how we can help. You may also call 7-137-JBSVBoatsGoNOW for free resources and assistance.; Status:Complete; Done: [id number] Tobacco Use Screening; Status:Complete; Done: [id number] Patient Instructions Please bring all medicines, vitamins, and herbal supplements with you when you come to the office. Prescriptions will not be filled unless you are compliant with your follow up appointments or have a follow up appointment scheduled as per instruction of your physician. Refills should be requested at the time of your visit. PLAN: Through informed decision making process incorporating patients unique circumstances, the following treatment plan will be initiated: 1. Prescription drug management of cardiovascular medication for efficacy, adherence to treatment, side effect assessment and polypharmacy. Current treatment clinically warranted and to continue without modifications. 2. Return for follow-up; in the interim, contact the office if new symptoms arise. Dr. Galan 9 months Discussed the dynamic nature of coronary artery disease and the importance of seeking medical attention if new symptoms arise. Chief Complaint Routine f/u: 'seem to be doing better' FREEDOM RODGERS is being seen for chest pain, palpitations and testing results. Patient presents to the office ambulatory with steady gait. Last evaluated by time, myself December 2022. Added spironolactone to medical regimen. Repeat potassium 4.0. He has been compliant denies any type of side effects. Subsequent testing reviewed in detail including: MPI no ischemia, EF 63%. Holter rhythm isolated PVCs, 5.7% PVC burden Patient presents to clinic today reporting feeling better than I was last time , with addition of spironolactone he has noted significant improvement in blood pressure and reduction in palpitations . He denies any dizziness or lightheadedness. He has significantly reduced caffeine intake. 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 He denies any exertional chest pain, no dyspnea on exertion. Reviewed the sensitivity/specificity perfusion study and he has been educated to notify office of any recurrent symptoms and seek emergent medical attention for concerning symptoms. Reviewed the importance of primary prevention. Unfortunately, continues to smoke but has been cutting back and is getting on me to stop . He denies pharmaceutical assistance. Overall patient is pleased with current state of cardiovascular health. At this time there are no indications for additional cardiovascular testing or need for medication changes. History of Present Illness The patient states he has been generally doing well since the last visit. Comorbid Illnesses: hypertension and hyperlipidemia. Symptoms: denies chest pain at rest, denies exertional chest pain, denies dyspnea, stable fatigue, denies exercise intolerance, improved palpitations, denies edema, denies orthopnea, denies dizziness and denies orthostatic dizziness. Associated symptoms: no syncope. His symptoms do not limit his activities. Disease Monitoring: The patient has had a stable weight. Medications: the patient is adherent with his medication regimen. He denies medication side effects. Surgical History Problems History of Catheter ablation History of Cholecystectomy History of Colonoscopy History of Lithotripsy History of Tonsillectomy History of Wrist surgery Current Meds Medication NameInstruction Aspirin EC 81 MG TBECTAKE 1 TABLET DAILY. Atorvastatin Calcium 80 MG Oral TabletTAKE 1 TABLET DAILY. Biotin 10 MG Oral TabletTAKE DIRECTED. Gabapentin 400 MG TABSTAKE 1 TABLET 3 TIMES DAILY. Losartan Potassium 100 MG Oral TabletTAKE 1 TABLET DAILY. Magnesium Oxide 400 MG Oral Tablettake 1 tablet by mouth once daily (more content not included)... Normal [facility] Tobacco Screening.on 023 Fall risk assessment a) No falls within the last year [facility] 250 DO Work Phone: Tobacco use status [facility] a) Yes [facility] 250 DO Work Phone: Tobacco Screening. Yes [facility] melody 250 DO Work Phone: Calcium [Mass/volume] in Ser um or PlasmaOrdered By: Leonel Sandoval on 02-07-2023 Calcium [Mass/Vol] 9.3 mg/dL 8.6-10.3 [facility] Carbon dioxide, total [Moles /volume] in Serum or PlasmaOrdered By: Leonel Sandoval on 02-07-2023 CO2 [Moles/Vol] 25.1 mmol/L 21.0-31.0 [facility] Cardiovasc Arrhythmia Result son 02-07-2023 Cardiovasc Arrhythmia Results Reason For Visit Reason for Visit: Holter Monitor: FREEDOM is here for the application of a 48 hour Holter monitor. Ordering Physician: JOHAN Santoyo Dr., DO Diagnosis: palpitations [facility] equipment agreement signed. FREEDOM understands monitor is to be returned on: 02/09/2023 Monitor number [id number] applied. Holter monitor returned and downloaded. Holter monitor printed and placed on Dr. Adelita Mazariegos MD desk to dictate. Procedure 1?the rhythm is sinus throughout with an average heart rate of 63 bpm. The minimum heart rate was 49 bpm, sinus bradycardia at 4:47 AM and the maximal heart rate was 103 bpm sinus tachycardia at 4:34 PM 2?rare isolated PVCs with only 4 beats noted in 48 hours. 3?large volume of mostly isolated premature atrial complexes. There was a total number of 10,644 beats in 48 hours representing 5.9% of total complexes including 65 events of atrial couplets. No atrial fibrillation/flutter or SVT was seen. 4?no pauses exceeding 2 seconds were seen 5?patient diary had entries for symptoms of palpitation which rarely correlated with PACs, symptoms of chest pain did not correlate with cardiac arrhythmias. Conclusion: 48-hour Holter monitor that demonstrated normal sinus rhythm mechanism throughout average heart rate 63 bpm. There is no significant tachyarrhythmias or bradycardia arrhythmias. Rare isolated PVCs were seen with large volume of mostly isolated PACs representing 5.9% of total QRS complexes, the majority of which were asymptomatic with rare symptoms of palpitation reported by the patient that in most cases did not correlate with cardiac arrhythmias Diagnosis/Problems Assessed Palpitation (785.1) (R00.2) Future Appointments Date/TimeProviderSpecialt ySite 02/20/2023 08:00 Leonel Ambrocio APRN-CNPCardiology703 [facility] 2 Jovanny 250 DO Signatures Electronically signed by : Adelita Mazariegos MD; Feb 17 2023 2:37PM EST (Author) Reviewed by : AISHA Dc; Feb 20 2023 10:48AM EST Normal [facility] Chloride [Moles/volume] in S karla or PlasmaOrdered By: Leonel Sandoval on 02-07-2023 Chloride [Moles/Vol] 109 mmol/L 98-107 [facility] Creatinine [Mass/volume] in Serum or PlasmaOrdered By: Leonel Sandoval on 02-07-2023 Creatinine [Mass/Vol] 0.90 mg/dL 0.70-1.30 [facility] Glucose [Mass/volume] in Ser um or PlasmaOrdered By: Leonel Sandoval on 02-07-2023 Glucose [Mass/Vol] 126 mg/dL 70-100 [facility] Comment on above: ADA recommended refe rence rangeRandom Glucose Reference Range is dependent on time and content of last meal. Glucose of more than 200 mg/dL in a nonstressed, ambulatory subject supports the diagnosis of Diabetes Mellitus. No Panel InformationOrdered By: Leonel Sandoval on 02-07-2023 Estimated GFR (CKD-EPI) > 60.0 mL/Min [facility] Creatinine Clearance (Chem N/A [facility] No Panel Informationon 02-07 > 60.0 Normal -[facility] [employer] melody 250 DO Work Phone: 11.9\S\11.9 Normal 6.0-15.0 -[facility] [employer] melody 250 DO Work Phone: 9.3\S\9.3 Normal 8.6-10.3 -[facility] 250 DO Work Phone: Comment on above: PERFORMED BY:[facility] [place] [id number] MEDICAL DIRECTORJADEN LIRA M.D. 25.1\S\25.1 Normal 21.0-31.0 [facility] 250 DO Work Phone: 109\S\109 above high threshold 98-107 -[facility] 250 DO Work Phone: [phone] 4.0\S\4.0 Normal 3.5-5.1 [facility] 250 DO Work Phone: 142\S\142 Normal 136-145 [facility] 250 DO Work Phone: 0.90\S\0.90 Normal 0.70-1.30 [facility] 250 DO Work Phone: 24\S\24 Normal 7-25 -[facility] 250 DO Work Phone: 126\S\126 above high threshold 70-100 [facility] [facility] 250 DO Work Phone: Comment on above: Random Glucose Refer ence Range is dependent on time and content of last meal. Glucose of more than 200 mg/dL in a nonstressed, ambulatory subject supports the diagnosis of Diabetes Mellitus. ADA recommended reference range Potassium [Moles/volume] in Serum or PlasmaOrdered By: Leonel Sandoval on 02-07-2023 Potassium [Moles/Vol] 4.0 mmol/L 3.5-5.1 [facility] Serum or plasma anion gap de terminationOrdered By: Leonel Sandoval on 02-07-2023 Anion gap [Moles/Vol] 11.9 mmol/L 6.0-15.0 [facility] Sodium [Moles/volume] in Ser um or PlasmaOrdered By: Leonel Sandoval on 02-07-2023 Sodium [Moles/Vol] 142 mmol/L 136-145 [facility] Urea nitrogen [Mass/volume] in Serum or PlasmaOrdered By: Leonel Sandoval on 02-07-2023 Urea nitrogen [Mass/Vol] 24 mg/dL 02-21 [facility] CARDIAC STRESS/REST INJE CTIONon 02-06-2023 [facility] CARDIAC STRESS/REST INJECTION Patient Name: FREEDOM RODGERS STUDY: MYOCARDIAL PERFUSION STRESS TEST WITH LEXISCAN Performing facility: [facility], [address] [place] [address], [address], [address] Provider: Leonel Sandoval RN, SALES MANAGER PCP: Dr. Jeffry Hooks Supervising provider: Wang Seals MD, [facility] INDICATION: Chest Pain; HTN Mixed Hyperlipidemia HISTORY: Gender: M; Age: 62 y/o ; Height: 0 cm; Weight: 82.2427141 kg. Diabetes; High Cholesterol; HTN; Palpitations; Chest Pain; Currently smoking. COMPARISON: No comparison. ACCESSION NUMBER(S): [id number]; [id number]; [id number] ORDERING CLINICIAN: LEONEL SANDOVAL TECHNIQUE: ONE DAY protocol. Stress injection: Date:02-06-23, 34.0 mCi of Myoview IV 20 seconds after rapid injection of Lexiscan. Rest injection: Date: 02-06-23, 10.1 mCi of Myoview IV at rest. The patient had a rapid injection of 0.4 mg of Lexiscan IV over 10 seconds. Imaging was performed by gated tomographic technique. Reason for Lexiscan: Neuropathy STRESS TEST DATA: Resting heart rate was 51 BPM. Resting blood pressure was 126/86 mmHg. Peak blood pressure was 118/78 mmHg. Peak heart rate was 85 BPM. TEST TERMINATED DUE TO: Protocol completed FINDINGS: STRESS TEST RESULTS: Resting electrocardiogram revealed normal sinus rhythm. There were no significant ischemic ECG changes or dysrhythmias. The patient did not have chest pains/symptoms during procedure. There was a normal recovery phase. IMAGING RESULTS: Image quality was good. Rest and stress tomographic images were reviewed and revealed normal perfusion without evidence of ischemia, myocardial infarction, or left ventricular dilatation with stress. Overall left ventricular systolic function appeared to be normal without regional wall motion abnormalities. Ejection fraction was 63%. TID is 1.04 and is normal. There were evidence of diaphragmatic attenuation artifact. IMPRESSION: Normal Lexiscan Myoview cardiac perfusion stress test. No evidence of ischemia or myocardial infarction by perfusion imaging. Normal left ventricular systolic function, ejection fraction 63%. No previous study available for comparison. Electronically signed by: FELICITAS FELIPE MD Normal 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) Hypertension, benign (401.1) (I10) Mixed hyperlipidemia (272.2) (E78.2) Type 2 diabetes mellitus without complication, without long-term current use of insulin (250.00) (E11.9) Echocardiogram abnormal (793.2) (R93.1) Body mass index (BMI) of 23.0 to 23.9 in adult (V85.1) (Z68.23) Current smoker (305.1) (F17.200) Orders AVNRT (AV nadir re-entry tachycardia), Palpitation IO Holter Monitor up to 48 Hrs; Status:Complete; Done: 25Jan2023 Chest pain, atypical, Hypertension, benign, Mixed hyperlipidemia NM Cardiac Stress/Rest Nuclear Med Order; Status:Hold For - Scheduling; Requested for:25Jan2023; Radiologist to Determine Optimal Study : Y What are the patient's signs and symptoms? : chest pain, risk factors Hypertension, benign Start: Magnesium Oxide 400 MG Oral Tablet; take 1 tablet by mouth once daily Basic Metabolic Panel; Status:Active; Requested for:06Feb2023; Start: Spironolactone 25 MG Oral Tablet; TAKE 1 TABLET DAILY SocHx: Current smoker You need to stop smoking. Though it is not easy, more than half of all adult smokers have quit. We encourage you to write down all the reasons you should quit smoking and set a quit date for yourself. Ask us how we can help. You may also call 1-752-RPBQ-NOW for free resources and assistance.; Status:Complete; Done: [id number] Tobacco Use Screening; Status:Complete; Done: [id number] Patient Instructions Please bring all medicines, vitamins, and herbal supplements with you when you come to the office. Prescriptions will not be filled unless you are compliant with your follow up appointments or have a follow up appointment scheduled as per instruction of your physician. Refills should be requested at the time of your visit. PLAN: Through informed decision making process incorporating patients unique circumstances, the following treatment plan will be initiated: 1. Prescription drug management of cardiovascular medication for efficacy, adherence to treatment, side effect assessment and polypharmacy. Current treatment clinically warranted and to continue with following modifications: - Begin spironolactone 25mg daily - Begin Magnesium Oxide 400mg daily 2. Chem6 in one week 3. 48 hour holter d/t palpitations 4. Lexiscan MPI (chest pain, risk factors) no treadmill d/t neuropathy 5. Return for follow-up; in the interim, contact the office if new symptoms arise. LINE PATROLMAN after testing [facility] f[facility]u: 'doing ok' FREEDOM RODGERS is being seen for follow-up of a hospitalization for chest pain. Patient presents to the office ambulatory steady gait. This is initial in clinic follow-up at [facility]. December 2022 hospitalized at [facility] due to chest pain, seen in consult by Dr. Galan. Chest pain felt to be atypical, he ruled out for ACS. Inpatient echo EF 55 to 60%, no wall motion abnormality. No changes to medical regimen at time of discharge. 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 He reports having recurrent palpitations and was supposed to get an implantable loop recorder but did not follow-up. He reports he continues to have palpitations that are similar to his prior AVNRT symptoms. They are occurring almost on a daily basis but is noted increased frequency and intensity especially over the last month. He has been utilizing an Apple Watch where his heart rate will be 52 and then all of a sudden will go in the upper 90s when it hits me. Sometimes they wake him up from sleep. His presenting complaint with this atypical left-sided pressure that was nonexertional in nature. He reports that it happens every once in a while . 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 He has neuropathy and due to this he describes a change in exercise capacity and functional tolerance. Cardiovascular risk profile: Treated hypertension Treated hyperlipidemia for 3 years with recent LDL 61, HDL 42 Reports recent diagnosis diet-controlled diabetes with hemoglobin A1c 6.7 Current everyday smoker; is trying to cut back but denies pharmaceutical assistance Significant family history of premature coronary artery disease in father [place] at 40 Blood pressure remains elevated in the office. Last known potassium 3.7. We will add Aldactone for blood pressure and to keep potassium on upper end of normal due to palpitations. Due to recent hospitalization for chest pain, high risk factor profile we will proceed with perfusion study to rule out underlying ischemic heart disease. History of Present Illness The patient states he has been generally doing well since the last visit. Comorbid Illnesses: diabetes mellitus, hypertension and hyperlipidemia. Symptoms: denies chest pain at rest, denies exertional chest keara (more content not included)... Normal [facility] Tobacco Screening.on 023 Adult depression screening assessment No -[facility] [employer] 250 DO Work Phone: Tobacco use status [facility] a) Yes [facility] [employer] 250 DO Work Phone: Tobacco Screening. Yes [facility] melody 250 DO Work Phone: Activated partial thrombopla stin time (aPTT) in platelet poor plasma by coagulation aOrdered By: Alexy Albarran on 01-12-2023 aPTT Coag (PPP) [Time] 31.1 s 25.1-36.5 [facility] Alanine aminotransferase [En zymatic activity/volume] in Serum or PlasmaOrdered By: Alexy Albarran on 01-12-2023 ALT [Catalytic activity/Vol] 32 U/L 7-52 [facility] Albumin [Mass/volume] in Ser um or Plasma by Bromocresol green (BCG) dye binding methoOrdered By: Alexy Albarran on 01-12-2023 Albumin BCG dye [Mass/Vol] 4.6 g/dL 3.5-5.7 [facility] Alkaline phosphatase [Enzyma tic activity/volume] in Serum or PlasmaOrdered By: Alexy Albarran on 01-12-2023 ALP [Catalytic activity/Vol] 120 U/L 34-104 [facility] Aspartate aminotransferase [ Enzymatic activity/volume] in Serum or PlasmaOrdered By: Alexy Albarran on 01-12-2023 AST [Catalytic activity/Vol] 21 U/L 13-39 [facility] Basophils Auto (Bld) [#/Vol] Ordered By: Alexy Albarran on 01-12-2023 Basophils (Bld) [#/Vol] 0.1 10*3/uL 0.0-0.2 [facility] Basophils/100 WBC Auto (Bld) Ordered By: Alexy Albarran on 01-12-2023 Basophils/100 WBC (Bld) 0.8 % . [facility] Bilirubin.direct [Mass/volum e] in Serum or PlasmaOrdered By: Alexy Albarran on 01-12-2023 Bilirubin.direct [Mass/Vol] 0.10 mg/dL 0.03-0.18 [facility] Bilirubin.total [Mass/volume ] in Serum or PlasmaOrdered By: Alexy Albarran on 01-12-2023 Bilirubin [Mass/Vol] 0.6 mg/dL 0.3-1.0 [facility] Calcium [Mass/volume] in Ser um or PlasmaOrdered By: Alexy Albarran on 01-12-2023 Calcium [Mass/Vol] 9.6 mg/dL 8.6-10.3 [facility] Carbon dioxide, total [Moles /volume] in Serum or PlasmaOrdered By: Alexy Albarran on 01-12-2023 CO2 [Moles/Vol] 24.7 mmol/L 21.0-31.0 [facility] Chloride [Moles/volume] in S karla or PlasmaOrdered By: Alexy Albarran on 01-12-2023 Chloride [Moles/Vol] 111 mmol/L 98-107 [facility] Cholesterol [Mass/volume] in Serum or PlasmaOrdered By: Chantel Hassan on 01-12-2023 Cholesterol [Mass/Vol] 118 mg/dL 140-200 [facility] Comment on above: Chol less than 200 m g/dl low riskChol 201-239 mg/dl borderline riskChol 240 mg/dl and greater high risk Cholesterol in LDL Calc [Mas s/Vol]Ordered By: Chantel Hassan on 01-12-2023 Cholesterol in LDL [Mass/Vol] 61 mg/dL 0-100 [facility] Comment on above: LDL ATP III CLASSIFI CATIONLDL less than 100 mg/dL OptimalLDL 100-129 mg/dL Near or above optimalLDL 130-159 mg/dL Borderline highLDL 160-189 mg/dL HighLDL greater than 189 mg/dL Very high Cholesterol in VLDL Calc [Ma ss/Vol]Ordered By: Chantel Hassan on 01-12-2023 Cholesterol in VLDL [Mass/Vol] 14 mg/dL [facility] Creatine kinase [Enzymatic a ctivity/volume] in Serum or PlasmaOrdered By: Alexy Albarran on 01-12-2023 CK [Catalytic activity/Vol] 97 U/L 30-223 [facility] Creatinine [Mass/volume] in Serum or PlasmaOrdered By: Alexy Albarran on 01-12-2023 Creatinine [Mass/Vol] 1.01 mg/dL 0.70-1.30 [facility] Eosinophils Auto (Bld) [#/Vo l]Ordered By: Alexy Albarran on 01-12-2023 Eosinophils (Bld) [#/Vol] 0.2 10*3/uL 0.0-0.45 [facility] Eosinophils/100 WBC Auto (Bl d)Ordered By: Alexy Albarran on 01-12-2023 Eosinophils/100 WBC (Bld) 3.1 % . [facility] Erythrocyte distribution wid th Auto (RBC) [Ratio]Ordered By: Alexy Albarran on 01-12-2023 Erythrocyte distribution width (RBC) [Ratio] 12.7 % 12.0-14.8 [facility] Globulin Calc (S) [Mass/Vol] Ordered By: Alexy Albarran on 01-12-2023 Globulin (S) [Mass/Vol] 2.5 g/dL [facility] Glucose [Mass/volume] in Ser um or PlasmaOrdered By: Alexy Albarran on 01-12-2023 Glucose [Mass/Vol] 135 mg/dL 70-100 [facility] Comment on above: ADA recommended refe rence rangeRandom Glucose Reference Range is dependent on time and content of last meal. Glucose of more than 200 mg/dL in a nonstressed, ambulatory subject supports the diagnosis of Diabetes Mellitus. Glucose mean value [Mass/vol ume] in Blood Estimated from glycated hemoglobinOrdered By: Chantel Hassan on 01-12-2023 Average glucose Estimated from glycated hemoglobin (Bld) [Mass/Vol] 146 mg/dL [facility] Hematocrit Auto (Bld) [Volum e fraction]Ordered By: Alexy Albarran on 01-12-2023 Hematocrit (Bld) [Volume fraction] 41.2 % 38.8-50.0 [facility] Hemoglobin A1c percentageOrd ered By: Chantel Hassan on 01-12-2023 HbA1c (Bld) [Mass fraction] 6.7 % 4.3-5.6 [facility] Comment on above: Increased risk for d iabetes: 5.7 - 6.4diabetes: >6.4glycemic control for adults with diabetes: <7.0 Hemoglobin [Mass/volume] in BloodOrdered By: Alexy Albarran on 01-12-2023 Hemoglobin (Bld) [Mass/Vol] 14.6 g/dL 13.0-17.0 [facility] Laboratory - CoagulationOrde red By: Alexy Albarran on 01-12-2023 PT Coag (PPP) [Time] 11.2 s 9.0-12.9 [facility] Leukocytes [#/volume] correc velasquez for nucleated erythrocytes in Blood by Automated counOrdered By: Alexy Albarran on 01-12-2023 WBC corrected for nucl RBC Auto (Bld) [#/Vol] 6.8 10*3/uL 4.1-10.5 [facility] Lipase [Enzymatic activity/v olume] in Serum or PlasmaOrdered By: lAexy Albarran on 01-12-2023 Lipase [Catalytic activity/Vol] 49.0 U/L 11.0-82.0 [facility] Lymphocytes Auto (Bld) [#/Vo l]Ordered By: Alexy Albarran on 01-12-2023 Lymphocytes (Bld) [#/Vol] 1.4 10*3/uL 1.00-4.8 [facility] Lymphocytes/100 WBC Auto (Bl d)Ordered By: Alexy Albarran on 01-12-2023 Lymphocytes/100 WBC (Bld) 21.2 % . [facility] MCH Auto (RBC) [Entitic mass ]Ordered By: Alexy Albarran on 01-12-2023 MCH (RBC) [Entitic mass] 33.4 pg 27.5-35.2 [facility] MCHC Auto (RBC) [Mass/Vol]Or dered By: Alexy Albarran on 01-12-2023 MCHC (RBC) [Mass/Vol] 35.5 g/dL 32.5-35.6 [facility] MCV Auto (RBC) [Entitic vol] Ordered By: Alexy Albarran on 01-12-2023 MCV (RBC) [Entitic vol] 94.2 fL 83.5-101 [facility] Monocyte distribution width [Entitic volume] in Blood by AutomatedOrdered By: Alexy Albarran on 01-12-2023 Monocyte distribution width Auto (Bld) [Entitic vol] 15.97 % 0.00-20.00 [facility] Monocytes Auto (Bld) [#/Vol] Ordered By: Alexy Albarran on 01-12-2023 Monocytes (Bld) [#/Vol] 0.5 10*3/uL 0.0-0.8 [facility] Monocytes/100 WBC Auto (Bld) Ordered By: Alexy Albarran on 01-12-2023 Monocytes/100 WBC (Bld) 7.9 % . [facility] Natriuretic peptide B [Mass/ Vol]Ordered By: Alexy Albarran on 01-12-2023 Natriuretic peptide B (Bld) [Mass/Vol] 76.0 pg/mL 5-100 [facility] Neutrophils Auto (Bld) [#/Vo l]Ordered By: Alexy Albarran on 01-12-2023 Neutrophils (Bld) [#/Vol] 4.5 10*3/uL 1.8-7.7 [facility] Neutrophils/100 WBC Auto (Bl d)Ordered By: Alexy Albarran on 01-12-2023 Neutrophils/100 WBC (Bld) 67.0 % . [facility] No Panel InformationOrdered By: Alexy Albarran on 01-12-2023 Estimated GFR (CKD-EPI) > 60.0 mL/Min [facility] Creatinine Clearance (Chem 85.37 [facility] Nucleated erythrocytes [Pres ence] in Blood by Automated countOrdered By: Alexy Albarran on 01-12-2023 Nucleated RBC Auto Ql (Bld) 0.1 /100{WBC} 0-0.5 [facility] Platelet mean volume Auto (B ld) [Entitic vol]Ordered By: Alexy Albarran on 01-12-2023 Platelet mean volume (Bld) [Entitic vol] 8.7 fL 6.6-10.1 [facility] Platelet poor plasma interna tional normalized ratio (INR) by coagulation assay (relatOrdered By: Alexy Albarran on 01-12-2023 INR Coag (PPP) [Relative time] 1.0 {INR} [facility] Comment on above: INR Therapeutic Rang e A) Pre- and Peroperative OAT started two weeks before surgery. NOT HIP SURGERY: 1.5 - 2.5 HIP SURGERY: 2 - 3B) Primary and secondary prevention of venous THROMBOSIS: 2 - 3C) Active venous thrombosis, pulmonary embolismand prevention of recurrent venous thrombosis: 2 - 3D) Prevention of arterial thromboembolismincluding patients with mechanical heart valves: 3 - 4.5 Platelets Auto (Bld) [#/Vol] Ordered By: Alexy Albarran on 01-12-2023 Platelets (Bld) [#/Vol] 204 10*3/uL 150-450 [facility] Potassium [Moles/volume] in Serum or PlasmaOrdered By: Alexy Albarran on 01-12-2023 Potassium [Moles/Vol] 3.7 mmol/L 3.5-5.1 [facility] Protein [Mass/volume] in Ser um or PlasmaOrdered By: Alexy Albarran on 01-12-2023 Protein [Mass/Vol] 7.1 g/dL 6.4-8.9 [facility] RBC Auto (Bld) [#/Vol]Ordere d By: Alexy Albarran on 01-12-2023 RBC (Bld) [#/Vol] 4.37 10*6/uL 3.90-5.60 [facility] Serum or plasma albumin/glob ulin mass ratioOrdered By: Alexy Albarran on 01-12-2023 Albumin/Globulin [Mass ratio] 1.8 {ratio} [facility] Serum or plasma anion gap de terminationOrdered By: Alexy Albarran on 01-12-2023 Anion gap [Moles/Vol] 11.0 mmol/L 6.0-15.0 [facility] Serum or plasma high density lipoprotein (HDL) cholesterol measurementOrdered By: Chantel Hassan on 01-12-2023 Cholesterol in HDL [Mass/Vol] 42 mg/dL 23-92 [facility] Comment on above: HDL CHOL ATP-III CLA SSIFICATION Cardiovascular RiskHDL > or equal to 60 mg/dL LOWHDL < 40 mg/dL HIGH Serum or plasma non-glucuron idated bilirubin measurement (mass/volume)Ordered By: Alexy Albarran on 01-12-2023 Bilirubin.indirect [Mass/Vol] 0.5 mg/dL [facility] Serum or plasma total choles terol/high density lipoprotein (HDL) cholesterol mass ratOrdered By: Chantel Hassan on 01-12-2023 Cholesterol.total/Chol esterol in HDL [Mass ratio] 2.8 {ratio} <5.0 [facility] Sodium [Moles/volume] in Ser um or PlasmaOrdered By: Alexy Albarran on 01-12-2023 Sodium [Moles/Vol] 143 mmol/L 136-145 [facility] Triglyceride [Mass/volume] i n Serum or PlasmaOrdered By: Chantel Hassan on 01-12-2023 Triglyceride [Mass/Vol] 74 mg/dL 0-149 [facility] Comment on above: TRIG ATP III CLASSIF ICATIONTRIG less than 150 mg/dL NormalTRIG 150-199 mg/dL Borderline highTRIG 200-500 mg/dL High TRIG greater than 500 mg/dL Very highStandard traceable to the Center for Disease Conrtrol and Prevention (CDC) test method. Troponin I.cardiac [Mass/vol ume] in Serum or Plasma by Detection limit <= 0.01 ng/Ordered By: Chantel Hassan on 01-12-2023 Troponin I.cardiac DL <= 0.01 ng/mL [Mass/Vol] 8.0 pg/mL 0.0-20.0 [facility] Troponin I.cardiac [Mass/vol ume] in Serum or Plasma by Detection limit <= 0.01 ng/Ordered By: Alexy Albarran on 01-12-2023 Troponin I.cardiac DL <= 0.01 ng/mL [Mass/Vol] 8.8 pg/mL 0.0-20.0 [facility] Urea nitrogen [Mass/volume] in Serum or PlasmaOrdered By: Alexy Albarran on 01-12-2023 Urea nitrogen [Mass/Vol] 18 mg/dL 7 [facility] WBC Auto (Bld) [#/Vol]Ordere d By: Alexy Albarran on 01-12-2023 WBC (Bld) [#/Vol] 6.8 10*3/uL 4.1-10.5 [facility] US EXT NON VASC LIMITED RTon 10-13-2022 US EXT NON VASC LIMITED RT EXAMINATION: US EXT NON VASC LIMITED RT HISTORY: Right lower quadrant pain ; right groin pain for 2 days; palpable lump in doctor's office; history of right iliac artery aneurysm COMPARISON: CT abdomen and lower extremities 08/13/2021 FINDINGS: Several lymph nodes corresponding to the patient's area of tenderness and palpable lumps, largest is 1.9 x 0.9 x 0.8 cm; likely reactive. Note is made of fusiform dilation of the right iliac artery, 1.8 cm maximum diameter. IMPRESSION: 1. Several slightly prominent, but otherwise benign-appearing lymph nodes within right groin corresponding to patient's tenderness and palpable lumps. 2. Mild aneurysmal dilation of right iliac artery, stable compared to 08/13/2021 CTA abdomen with lower extremity runoff. Electronically authenticated by: TRI COLE Date: 2022-10-13 09:48 Normal [facility] Activated partial thrombopla stin time (aPTT) in platelet poor plasma by coagulation aOrdered By: Jd Mcdowell on 09-24-2022 aPTT Coag (PPP) [Time] 31.5 s 25.1-36.5 [facility] Automated erythrocytes count in urine sediment (number/area)Ordered By: Jd Mcdowell on 09-24-2022 RBC Auto (Urine sed) [#/Area] 5-9 [HPF] 0-4 [facility] Automated leukocytes count i n urine sediment (number/area)Ordered By: Jd Mcdowell on 09-24-2022 WBC Auto (Urine sed) [#/Area] 3-4 [HPF] 0-4 [facility] Automated urine hyaline cast s count (number/volume)Ordered By: Jd Mcdowell on 09-24-2022 Hyaline casts Auto (U) [#/Vol] 10-19 [LPF] 0-1 [facility] Basophils Auto (Bld) [#/Vol] Ordered By: Jd Mcdowell on 09-24-2022 Basophils (Bld) [#/Vol] 0.0 10*3/uL 0.0-0.2 [facility] Basophils/100 WBC Auto (Bld) Ordered By: Jd Mcdowell on 09-24-2022 Basophils/100 WBC (Bld) 0.4 % . [facility] Bilirubin Test strip Ql (U)O rdered By: Jd Mcdowell on 09-24-2022 Bilirubin Ql (U) Negative Negative [facility] COVID CepheidOrdered By: Felton Mcdowell on 09-24-2022 SARS-CoV-2 (COVID-19) Ab IA Ql Negative Negative [facility] Comment on above: This is a duplicate HALKAR Xpert Xpress CoV-2/Flu/RSV Plus RNA by RT-PCR result to be used for statistical tracking purpose only. SARS-CoV-2 (COVID-19) RNA RODOLFO+probe Ql (Unsp spec) [facility] Calcium [Mass/volume] in Ser um or PlasmaOrdered By: Jd Mcdowell on 09-24-2022 Calcium [Mass/Vol] 8.4 mg/dL 8.2-10.2 [facility] Carbon dioxide, total [Moles /volume] in Serum or PlasmaOrdered By: Jd Mcdowell on 09-24-2022 CO2 [Moles/Vol] 18.9 mmol/L 22.0-30.0 [facility] Casts typing in urine sedime nt by light microscopyOrdered By: Jd Mcdowell on 09-24-2022 Casts LM Nom (Urine sed) N/A [facility] Chloride [Moles/volume] in S karla or PlasmaOrdered By: Jd Mcdowell on 09-24-2022 Chloride [Moles/Vol] 107 mmol/L 95-114 [facility] Color Auto (U)Ordered By: Franci Mcdowell on 09-24-2022 Color (U) Yellow Yellow [facility] Creatine kinase [Enzymatic a ctivity/volume] in Serum or PlasmaOrdered By: Jd Mcdowell on 09-24-2022 CK [Catalytic activity/Vol] 95 U/L 22-269 [facility] Creatine kinase.MB [Mass/vol ume] in Serum or PlasmaOrdered By: Jd Mcdowell on 09-24-2022 CK.MB [Mass/Vol] 0.6 ng/mL 0.6-6.3 [facility] Creatinine and Glomerular fi ltration rate.predicted panel (S/P/Bld)Ordered By: Jd Mcdowell on 09-24-2022 Creatinine [Mass/Vol] 1.32 mg/dL 0.64-1.27 [facility] Eosinophils Auto (Bld) [#/Vo l]Ordered By: Jd Mcdowell on 09-24-2022 Eosinophils (Bld) [#/Vol] 0.0 10*3/uL 0.0-0.45 [facility] Eosinophils/100 WBC Auto (Bl d)Ordered By: Jd Mcdowell on 09-24-2022 Eosinophils/100 WBC (Bld) 0.0 % . [facility] Erythrocyte distribution wid th Auto (RBC) [Ratio]Ordered By: Jd Mcdowell on 09-24-2022 Erythrocyte distribution width (RBC) [Ratio] 13.1 % 12.0-14.8 [facility] Estimated glomerular filtrat ion rate (GFR) non- AmericanOrdered By: Jd Mcdowell on 09-24-2022 GFR/1.73 sq M.predicted among non-blacks MDRD (S/P/Bld) [Vol rate/Area] 55 mL/Min [facility] Glucose [Mass/volume] in Ser um or PlasmaOrdered By: Jd Mcdowell on 09-24-2022 Glucose [Mass/Vol] 147 mg/dL 70-100 [facility] Comment on above: ADA recommended refe rence rangeRandom Glucose Reference Range is dependent on time and content of last meal. Glucose of more than 200 mg/dL in a nonstressed, ambulatory subject supports the diagnosis of Diabetes Mellitus. Hematocrit Auto (Bld) [Volum e fraction]Ordered By: Jd Mcdowell on 09-24-2022 Hematocrit (Bld) [Volume fraction] 39.7 % 38.8-50.0 [facility] Hemoglobin [Mass/volume] in BloodOrdered By: Jd Mcdowell on 09-24-2022 Hemoglobin (Bld) [Mass/Vol] 13.7 g/dL 13.0-17.0 [facility] Ketones Auto test strip (U) [Mass/Vol]Ordered By: Jd Mcdowell on 09-24-2022 Ketones (U) [Mass/Vol] Trace Negative [facility] Laboratory - Chemistry and C hemistry - challengeOrdered By: Jd Mcdowell on 09-24-2022 Natriuretic peptide B (Bld) [Mass/Vol] 14.0 pg/mL 5-100 [facility] Laboratory - CoagulationOrde red By: Jd Mcdowell on 09-24-2022 PT Coag (PPP) [Time] 13.3 s 9.0-12.9 [facility] Leukocytes [#/volume] correc velasquez for nucleated erythrocytes in Blood by Automated counOrdered By: Jd Mcdowell on 09-24-2022 WBC corrected for nucl RBC Auto (Bld) [#/Vol] 5.4 10*3/uL 4.1-10.5 [facility] Lymphocytes Auto (Bld) [#/Vo l]Ordered By: Jd Mcdowell on 09-24-2022 Lymphocytes (Bld) [#/Vol] 1.1 10*3/uL 1.00-4.8 [facility] Lymphocytes/100 WBC Auto (Bl d)Ordered By: Jd Mcdowell on 09-24-2022 Lymphocytes/100 WBC (Bld) 20.2 % . [facility] MCH Auto (RBC) [Entitic mass ]Ordered By: Jd Mcdowell on 09-24-2022 MCH (RBC) [Entitic mass] 33.4 pg 27.5-35.2 [facility] MCHC Auto (RBC) [Mass/Vol]Or dered By: Jd Mcdowell on 09-24-2022 MCHC (RBC) [Mass/Vol] 34.4 g/dL 32.5-35.6 [facility] MCV Auto (RBC) [Entitic vol] Ordered By: Jd Mcdowell on 09-24-2022 MCV (RBC) [Entitic vol] 97.0 fL 83.5-101 [facility] Monocyte distribution width [Entitic volume] in Blood by AutomatedOrdered By: Jd Mcdowell on 09-24-2022 Monocyte distribution width Auto (Bld) [Entitic vol] 23.66 % 0.00-20.00 [facility] Comment on above: For adults in ED, MD W > 20.0 may be associated with a higher risk of sepsis during the first 12 hrs of hospital admission Monocytes Auto (Bld) [#/Vol] Ordered By: Jd Mcdowell on 09-24-2022 Monocytes (Bld) [#/Vol] 0.6 10*3/uL 0.0-0.8 [facility] Monocytes/100 WBC Auto (Bld) Ordered By: Jd Mcdowell on 09-24-2022 Monocytes/100 WBC (Bld) 10.8 % . [facility] Neutrophils Auto (Bld) [#/Vo l]Ordered By: Jd Mcdowell on 09-24-2022 Neutrophils (Bld) [#/Vol] 3.7 10*3/uL 1.8-7.7 [facility] Neutrophils/100 WBC Auto (Bl d)Ordered By: Jd Mcdowell on 09-24-2022 Neutrophils/100 WBC (Bld) 68.6 % . [facility] Nitrite Test strip Ql (U)Ord ered By: Jd Mcdowell on 09-24-2022 Nitrite Ql (U) Negative Negative [facility] No Panel InformationOrdered By: Jd Mcdowell on 09-24-2022 D-Dimer Quantitative (PE/DVT) 212 ng/mL 0-243 [facility] Comment on above: The reference range for D-dimer is <243 ng/mL D-dimer units.D-dimer results must be used in conjunction with a clinicalpretest probability (PTP) assessment model for deep veinthrombosis (DVT) and pulmonary embolism (PE). Results <230ng/mL d-dimer units can be used as a negative predictor inpatients with low or moderate probability for DVT/PE.Results above the exclusion threshold of 230 ng/ml D-dimerunits for DVT/PE may indicate the need for furtherdiagnostic testing.D-Dimer can be increased in hospitalized patients due toco-morbid conditions. Estimated GFR () > 60 mL/Min [facility] Comment on above: GFR estimated refere nce range: According to KDOQI guidelines, <60 ml/min/1.73m2 is sufficient to diagnose a patient with chronic kidney disease. Pharmacy Creatinine Clearance (Chem 67.26 [facility] Nucleated erythrocytes [Pres ence] in Blood by Automated countOrdered By: Jd Mcdowell on 09-24-2022 Nucleated RBC Auto Ql (Bld) 0.1 /100{WBC} 0-0.5 [facility] Platelet mean volume Auto (B ld) [Entitic vol]Ordered By: Jd Mcdowell on 09-24-2022 Platelet mean volume (Bld) [Entitic vol] 9.0 fL 6.6-10.1 [facility] Platelet poor plasma interna tional normalized ratio (INR) by coagulation assay (relatOrdered By: Jd Mcdowell on 09-24-2022 INR Coag (PPP) [Relative time] 1.1 {INR} [facility] Comment on above: INR Therapeutic Rang e A) Pre- and Peroperative OAT started two weeks before surgery. NOT HIP SURGERY: 1.5 - 2.5 HIP SURGERY: 2 - 3B) Primary and secondary prevention of venous THROMBOSIS: 2 - 3C) Active venous thrombosis, pulmonary embolismand prevention of recurrent venous thrombosis: 2 - 3D) Prevention of arterial thromboembolismincluding patients with mechanical heart valves: 3 - 4.5 Platelets Auto (Bld) [#/Vol] Ordered By: Jd Mcdowell on 09-24-2022 Platelets (Bld) [#/Vol] 137 10*3/uL 150-450 [facility] Potassium [Moles/volume] in Serum or PlasmaOrdered By: Jd Mcdowell on 09-24-2022 Potassium [Moles/Vol] 3.2 mmol/L 3.5-5.1 [facility] Protein Auto test strip (U) [Mass/Vol]Ordered By: Jd Mcdowell on 09-24-2022 Protein (U) [Mass/Vol] 100 mg/dL Negative Fi [facility] RBC Auto (Bld) [#/Vol]Ordere d By: Jd Mcdowell on 09-24-2022 RBC (Bld) [#/Vol] 4.09 10*6/uL 3.90-5.60 [facility] Serum or plasma anion gap de terminationOrdered By: Jd Mcdowell on 09-24-2022 Anion gap [Moles/Vol] 12.3 mmol/L 6.0-15.0 [facility] Serum or plasma creatine kin ase MB (CKMB)/total creatine kinase (CK) ratio by calculaOrdered By: Jd Mcdowell on 09-24-2022 CK.MB Calc [Catalytic fraction] 0.6 % 0.00-2.50 [facility] Serum or plasma ethanol alida urement (mass/volume)Ordered By: Jd Mcdowell on 09-24-2022 Ethanol [Mass/Vol] mg/dL [facility] Ethanol [Mass/Vol] TNP [facility] Comment on above: Test not performed Sodium [Moles/volume] in Ser um or PlasmaOrdered By: Jd Mcdowell on 09-24-2022 Sodium [Moles/Vol] 135 mmol/L 136-146 [facility] Specific gravity Auto test s trip (U) [Rel density]Ordered By: Jd Mcdowell on 09-24-2022 Specific gravity (U) [Rel density] 1.027 1.001-1.030 [facility] Squamous epithelial cells de tection in urine sediment by light microscopyOrdered By: Jd Mcdowell on 09-24-2022 Epithelial cells.squamous LM Ql (Urine sed) 1-2 [HPF] 0-2 [facility] Troponin I.cardiac [Mass/vol ume] in Serum or Plasma by High sensitivity methodOrdered By: Jd Mcdowell on 09-24-2022 Troponin I.cardiac High sensitivity method [Mass/Vol] 27 pg/mL 0-20 [facility] Urea nitrogen [Mass/volume] in Serum or PlasmaOrdered By: Jd Mcdowell on 09-24-2022 Urea nitrogen [Mass/Vol] 16 mg/dL 9-23 [facility] Urine bacteria detection by automated methodOrdered By: Jd Mcdowell on 09-24-2022 Bacteria Auto Ql (U) None seen None Seen [facility] Urine clarity by refractomet ry automatedOrdered By: Jd Mcdowell on 09-24-2022 Clarity Refractometry automated (U) Cloudy Clear [facility] Urine glucose measurement by automated test strip (mass/volume)Ordered By: Jd Mcdowell on 09-24-2022 Glucose Auto test strip (U) [Mass/Vol] Normal mg/dL Normal [facility] Urine hemoglobin detection b y automated test stripOrdered By: Jd Mcdowell on 09-24-2022 Hemoglobin Auto test strip Ql (U) Negative Negative [facility] Urine leukocyte esterase det ection by automated test stripOrdered By: Jd Mcdowell on 09-24-2022 Leukocyte esterase Auto test strip Ql (U) Negative Negative [facility] Urobilinogen Auto test strip (U) [Mass/Vol]Ordered By: Jd Mcdowell on 09-24-2022 Urobilinogen (U) [Mass/Vol] Normal mg/dL Normal [facility] WBC Auto (Bld) [#/Vol]Ordere d By: Jd Mcdowell on 09-24-2022 WBC (Bld) [#/Vol] 5.4 10*3/uL 4.1-10.5 [facility] pH Auto test strip (U)Ordere d By: Jd Mcdowell on 09-24-2022 pH (U) 5.5 [pH] 5.0-9.0 [facility] Albumin [Mass/volume] in Ser um or PlasmaOrdered By: Emir Tejada on 08-21-2022 Albumin [Mass/Vol] 4.2 g/dL 3.2-5.5 [facility] Automated erythrocytes count in urine sediment (number/area)Ordered By: Emir Tejada on 08-21-2022 RBC Auto (Urine sed) [#/Area] 0-1 [HPF] 0-4 [facility] Automated leukocytes count i n urine sediment (number/area)Ordered By: Emir Tejada on 08-21-2022 WBC Auto (Urine sed) [#/Area] None seen [HPF] 0-4 [facility] Basophils Auto (Bld) [#/Vol] Ordered By: Emir Tejada on 08-21-2022 Basophils (Bld) [#/Vol] 0.0 10*3/uL 0.0-0.2 [facility] Basophils/100 WBC Auto (Bld) Ordered By: Emir Tejada on 08-21-2022 Basophils/100 WBC (Bld) 0.6 % . [facility] Bilirubin Test strip Ql (U)O rdered By: Emir Tejada on 08-21-2022 Bilirubin Ql (U) Negative Negative [facility] Color Auto (U)Ordered By: Anirudh Tejada on 08-21-2022 Color (U) Yellow Yellow [facility] Creatinine and Glomerular fi ltration rate.predicted panel (S/P/Bld)Ordered By: Emir Tejada on 08-21-2022 Creatinine [Mass/Vol] 1.16 mg/dL 0.64-1.27 [facility] Eosinophils Auto (Bld) [#/Vo l]Ordered By: Emir Tejada on 08-21-2022 Eosinophils (Bld) [#/Vol] 0.2 10*3/uL 0.0-0.45 [facility] Eosinophils/100 WBC Auto (Bl d)Ordered By: Emir Tejada on 08-21-2022 Eosinophils/100 WBC (Bld) 2.9 % . [facility] Erythrocyte distribution wid th Auto (RBC) [Ratio]Ordered By: Emir Tejada on 08-21-2022 Erythrocyte distribution width (RBC) [Ratio] 12.7 % 12.0-14.8 [facility] Estimated glomerular filtrat ion rate (GFR) non- AmericanOrdered By: Emir Tejada on 08-21-2022 GFR/1.73 sq M.predicted among non-blacks MDRD (S/P/Bld) [Vol rate/Area] > 60 mL/Min [facility] Globulin Calc (S) [Mass/Vol] Ordered By: Emir Tejada on 08-21-2022 Globulin (S) [Mass/Vol] 2.6 g/dL [facility] Hematocrit Auto (Bld) [Volum e fraction]Ordered By: Emir Tejada on 08-21-2022 Hematocrit (Bld) [Volume fraction] 42.4 % 38.8-50.0 [facility] Hemoglobin [Mass/volume] in BloodOrdered By: Emir Tejada on 08-21-2022 Hemoglobin (Bld) [Mass/Vol] 15.0 g/dL 13.0-17.0 [facility] Ketones Auto test strip (U) [Mass/Vol]Ordered By: Emir Tejada on 08-21-2022 Ketones (U) [Mass/Vol] Negative [facility] - Chemistry and C hemistry - challengeOrdered By: Emir Tejada on 08-21-2022 Lipase [Catalytic activity/Vol] 48.0 U/L [facility] Laboratory - UrinalysisOrder ed By: Emir Tejada on 08-21-2022 Hyaline casts LM Ql (Urine sed) 0-8 [LPF] 0-8 [facility] Leukocytes [#/volume] correc velasquez for nucleated erythrocytes in Blood by Automated counOrdered By: Emir Tejada on 08-21-2022 WBC corrected for nucl RBC Auto (Bld) [#/Vol] 7.2 10*3/uL 4.1-10.5 [facility] Lymphocytes Auto (Bld) [#/Vo l]Ordered By: Emir Tejada on 08-21-2022 Lymphocytes (Bld) [#/Vol] 1.5 10*3/uL 1.00-4.8 [facility] Lymphocytes/100 WBC Auto (Bl d)Ordered By: Emir Tejada on 08-21-2022 Lymphocytes/100 WBC (Bld) 20.6 % . [facility] MCH Auto (RBC) [Entitic mass ]Ordered By: Emir Tejada on 08-21-2022 MCH (RBC) [Entitic mass] 33.6 pg 27.5-35.2 [facility] MCHC Auto (RBC) [Mass/Vol]Or dered By: Emir Tejada on 08-21-2022 MCHC (RBC) [Mass/Vol] 35.5 g/dL 32.5-35.6 [facility] MCV Auto (RBC) [Entitic vol] Ordered By: Emir Tejada on 08-21-2022 MCV (RBC) [Entitic vol] 94.6 fL 83.5-101 [facility] Monocyte distribution width [Entitic volume] in Blood by AutomatedOrdered By: Emir Tejada on 08-21-2022 Monocyte distribution width Auto (Bld) [Entitic vol] 19.02 % 0.00-20.00 [facility] Monocytes Auto (Bld) [#/Vol] Ordered By: Emir Tejada on 08-21-2022 Monocytes (Bld) [#/Vol] 0.6 10*3/uL 0.0-0.8 [facility] Monocytes/100 WBC Auto (Bld) Ordered By: Emir Tejada on 08-21-2022 Monocytes/100 WBC (Bld) 8.7 % . [facility] Neutrophils Auto (Bld) [#/Vo l]Ordered By: Eimr Tejada on 08-21-2022 Neutrophils (Bld) [#/Vol] 4.9 10*3/uL 1.8-7.7 [facility] Neutrophils/100 WBC Auto (Bl d)Ordered By: Emir Tejada on 08-21-2022 Neutrophils/100 WBC (Bld) 67.2 % . [facility] Nitrite Test strip Ql (U)Ord ered By: Emir Tejada on 08-21-2022 Nitrite Ql (U) Negative Negative [facility] No Panel InformationOrdered By: Emir Tejada on 08-21-2022 Estimated GFR () > 60 mL/Min [facility] Comment on above: GFR estimated refere nce range: According to KDOQI guidelines, <60 ml/min/1.73m2 is sufficient to diagnose a patient with chronic kidney disease. Pharmacy Creatinine Clearance (Chem 77.49 [facility] Nucleated erythrocytes [Pres ence] in Blood by Automated countOrdered By: Emir Tejada on 08-21-2022 Nucleated RBC Auto Ql (Bld) 0.2 /100{WBC} 0-0.5 [facility] Platelet mean volume Auto (B ld) [Entitic vol]Ordered By: Emir Tejada on 08-21-2022 Platelet mean volume (Bld) [Entitic vol] 8.6 fL 6.6-10.1 [facility] Platelets Auto (Bld) [#/Vol] Ordered By: Emir Tejada on 08-21-2022 Platelets (Bld) [#/Vol] 215 10*3/uL 150-450 [facility] Protein Auto test strip (U) [Mass/Vol]Ordered By: Emir Tejada on 08-21-2022 Protein (U) [Mass/Vol] Trace mg/dL Negative F [facility] Protein [Mass/volume] in Ser um or PlasmaOrdered By: Emir Tejada on 08-21-2022 Protein [Mass/Vol] 6.8 g/dL 6.1-7.9 [facility] RBC Auto (Bld) [#/Vol]Ordere d By: Emir Tejada on 08-21-2022 RBC (Bld) [#/Vol] 4.48 10*6/uL 3.90-5.60 [facility] Serum or plasma alanine hamilton otransferase measurement without P-5'-P (enzymatic activiOrdered By: Emir Tejada on 08-21-2022 ALT No additional P-5'-P [Catalytic activity/Vol] 39 U/L 10-60 [facility] Serum or plasma albumin/glob ulin mass ratioOrdered By: Emir Tejada on 08-21-2022 Albumin/Globulin [Mass ratio] 1.6 {ratio} [facility] Serum or plasma alkaline cristina sphatase measurement (enzymatic activity/volume)Ordered By: Emir Tejada on 08-21-2022 ALP [Catalytic activity/Vol] 105 U/L 32-92 [facility] Serum or plasma anion gap de terminationOrdered By: Emir Tejada on 08-21-2022 Anion gap [Moles/Vol] 14.6 mmol/L 6.0-15.0 [facility] Serum or plasma aspartate am inotransferase measurement (enzymatic activity/volume)Ordered By: Emir Tejada on 08-21-2022 AST [Catalytic activity/Vol] 20 U/L 10-42 [facility] Serum or plasma calcium alida urement (mass/volume)Ordered By: Emir Tejada on 08-21-2022 Calcium [Mass/Vol] 9.9 mg/dL 8.2-10.2 [facility] Serum or plasma chloride sammie surement (moles/volume)Ordered By: Emir Tejada on 08-21-2022 Chloride [Moles/Vol] 102 mmol/L 95-114 [facility] Serum or plasma glucose alida urement (mass/volume)Ordered By: Emir Tejada on 08-21-2022 Glucose [Mass/Vol] 159 mg/dL 70-100 [facility] Comment on above: ADA recommended refe rence rangeRandom Glucose Reference Range is dependent on time and content of last meal. Glucose of more than 200 mg/dL in a nonstressed, ambulatory subject supports the diagnosis of Diabetes Mellitus. Serum or plasma potassium me asurement (moles/volume)Ordered By: Emir Tejada on 08-21-2022 Potassium [Moles/Vol] 3.4 mmol/L 3.5-5.1 [facility] Serum or plasma sodium measu rement (moles/volume)Ordered By: Emir Tejada on 08-21-2022 Sodium [Moles/Vol] 138 mmol/L 136-146 [facility] Serum or plasma total biliru bin measurement (mass/volume)Ordered By: Emir Tejada on 08-21-2022 Bilirubin [Mass/Vol] 0.5 mg/dL 0.3-1.2 [facility] Serum or plasma total carbon dioxide measurement (moles/volume)Ordered By: Emir Tejada on 08-21-2022 CO2 [Moles/Vol] 24.8 mmol/L 22.0-30.0 [facility] Serum or plasma urea nitroge n measurement (mass/volume)Ordered By: Emir Tejada on 08-21-2022 Urea nitrogen [Mass/Vol] 27 mg/dL 9-23 [facility] Specific gravity Auto test s trip (U) [Rel density]Ordered By: Emir Tejada on 08-21-2022 Specific gravity (U) [Rel density] 1.020 1.001-1.030 [facility] Squamous epithelial cells de tection in urine sediment by light microscopyOrdered By: Emir Tejada on 08-21-2022 Epithelial cells.squamous LM Ql (Urine sed) None seen [HPF] 0-2 [facility] Urine bacteria detection by automated methodOrdered By: Emir Tejada on 08-21-2022 Bacteria Auto Ql (U) None seen None Seen [facility] Urine clarity by refractomet ry automatedOrdered By: Emir Tejada on 08-21-2022 Clarity Refractometry automated (U) Clear Clear [facility] Urine glucose measurement by automated test strip (mass/volume)Ordered By: Emir Tejada on 08-21-2022 Glucose Auto test strip (U) [Mass/Vol] Normal mg/dL Normal [facility] Urine hemoglobin detection b y automated test stripOrdered By: Emir Tejada on 08-21-2022 Hemoglobin Auto test strip Ql (U) Negative Negative [facility] Urine leukocyte esterase det ection by automated test stripOrdered By: Emir Tejada on 08-21-2022 Leukocyte esterase Auto test strip Ql (U) Negative Negative [facility] Urobilinogen Auto test strip (U) [Mass/Vol]Ordered By: Emir Tejada on 08-21-2022 Urobilinogen (U) [Mass/Vol] Normal mg/dL Normal [facility] WBC Auto (Bld) [#/Vol]Ordere d By: Emir Tejada on 08-21-2022 WBC (Bld) [#/Vol] 7.2 10*3/uL 4.1-10.5 [facility] pH Auto test strip (U)Ordere d By: Emir Tejada on 08-21-2022 pH (U) 6.5 [pH] 5.0-9.0 [facility] ACETAMINOPHENon 01-28-2022 Acetaminophen [Mass/Vol] ug/mL Critically low 10.0-30.0 [facility] Comment on above: Performed By: #### E TH, ACET, CMP, SALYC #### [facility] [address] [place] [address] Dr. Piedad Adan CBC AUTO DIFFon 01-28-2022 BASO # 0.0 103/ul Normal 0.0-0.1 [facility] Comment on above: Performed By: #### C BC #### [facility] [address] [place] [address] Dr. Piedad Adan Basophils/100 WBC (Bld) 0.4 % Normal 0.2-2.0 [facility] Comment on above: Performed By: #### C BC #### [facility] [address] [place] [address] Dr. Piedad Adan EO # 0.3 103/ul Normal 0.0-0.7 [facility] Comment on above: Performed By: #### C BC #### [facility] [address] [place] [address] Dr. Piedad Adan Eosinophils/100 WBC (Bld) 4.6 % Normal 0.9-7.0 [facility] Comment on above: Performed By: #### C BC #### [facility] [address] [place] [address] Dr. Piedad Adan Erythrocyte distribution width (RBC) [Ratio] 11.4 % Normal 11.0-15.0 [facility] Comment on above: Performed By: #### C BC #### [facility] [address] [place] [address] Dr. Piedad Adan Hematocrit (Bld) [Volume fraction] 34.9 % Critically low 42.0-54.0 [facility] Comment on above: Performed By: #### C BC #### [facility] [address] [place] [address] Dr. Piedad Adan Hemoglobin (Bld) [Mass/Vol] 13.0 g/dL Critically low 14.0-18.0 [facility] Comment on above: Performed By: #### C BC #### [facility] [address] [place] [address] Dr. Piedad Adan IG # 0.01 10e3/ul Normal 0.00-0.03 [facility] Comment on above: Performed By: #### C BC #### [facility] [address] [place] [address] Dr. Piedad Adan IG % 0.1 % Normal 0.0-0.5 [facility] Comment on above: Performed By: #### C BC #### [facility] [address] [place] [address] Dr. Piedad Adan LYMPH # 2.0 103/ul Normal 1.2-3.8 [facility] Comment on above: Performed By: #### C BC #### [facility] [address] [place] [address] Dr. Piedad Adan Lymphocytes/100 WBC (Bld) 29.7 % Normal 20.5-60.0 [facility] Comment on above: Performed By: #### C BC #### [facility] [address] [place] [address] Dr. Piedad Adan MANUAL DIFF REQ NO Normal [facility] Comment on above: Performed By: #### C BC #### [facility] [address] [place] [address] Dr. Piedad Adan MCH (RBC) [Entitic mass] 34.3 pg Critically high 25.9-34.0 [facility] Comment on above: Performed By: #### C BC #### [facility] [address] [place] [address] Dr. Piedad Adan MCHC (RBC) [Mass/Vol] 37.2 g/dL Critically high 29.9-35.2 [facility] Comment on above: Performed By: #### C BC #### [facility] [address] [place] [address] Dr. Piedad Adan MCV (RBC) [Entitic vol] 92.1 fL Normal 80.0-94.0 [facility] Comment on above: Performed By: #### C BC #### [facility] [address] [place] [address] Dr. Piedad Adan MONO # 0.7 103/ul Normal 0.3-0.8 [facility] Comment on above: Performed By: #### C BC #### [facility] [address] [place] [address] Dr. Piedad Adan Monocytes/100 WBC (Bld) 9.9 % Normal 1.7-12.0 [facility] Comment on above: Performed By: #### C BC #### [facility] [address] [place] [address] Dr. Piedad Adan NEUT # 3.7 103/ul Normal 1.4-6.5 [facility] Comment on above: Performed By: #### C BC #### [facility] [address] [place] [address] Dr. Piedad Adan Neutrophils/100 WBC (Bld) 55.3 % Normal 43.0-75.0 [facility] Comment on above: Performed By: #### C BC #### [facility] [address] [address] [address] Piedad Adan Platelet mean volume (Bld) [Entitic vol] 9.8 fL Normal 9.5-13.5 [facility] Comment on above: Performed By: #### C BC #### [facility] [address] [place] [address] Dr. Piedad Adan PLT 237 103/ul Normal 150-450 [facility] Comment on above: Performed By: #### C BC #### [facility] [address] [place] [address] Dr. Piedad Adan RBC 3.79 106/ul Critically low 4.70-6.10 [facility] Comment on above: Performed By: #### C BC #### [facility] [address] [place] [address] Dr. Piedad Adan WBC 6.7 103/ul Normal 4.0-11.0 [facility] Comment on above: Performed By: #### C BC #### [facility] [address] [place] [id number] HEAD WO CONon 01-28-2022 CT HEAD WO CON EXAMINATION: CT HEAD WO CON HISTORY: UNSPECIFIED INJURY OF HEAD, INITIAL ENCOUNTER COMPARISON: 11/30/2018 TECHNIQUE: CT examination of the head without IV contrast. Sagittal and coronal reconstructions were obtained. Dose reduction techniques were achieved by using automated exposure control and/or adjustment of mA and/or kV according to patient size and/or use of iterative reconstruction technique. FINDINGS: The ventricles are not enlarged, the lateral ventricles are symmetric and the third ventricles in the midline. The sylvian fissures and cortical sulci are unremarkable. There is no evidence of an intracranial hemorrhage, mass lesion or apparent acute infarct. No abnormality is seen in the deep white matter. Benign calcifications are seen in the pineal complex. The cerebellum and visualized brainstem are intact. The visualized paranasal sinuses are clear. There is no apparent skull fracture. IMPRESSION: There is no evidence of an intracranial hemorrhage, mass lesion or apparent acute infarct. The paranasal sinuses are clear. The overall appearance is unchanged. Electronically authenticated by: DUNG BAILEY Date: 2022-01-28 20:02 Normal [facility] Covid-19 PCR (CVDTBH)on SARS-CoV-2 (COVID-19) RNA RODOLOF+probe Ql (Unsp spec) Not detected Normal NOT DETECTED [facility] Comment on above: Result Comment: When diagnostic testing is negative, the possibility of a false negative should be considered in the context of a patient's recent exposures and the presence of clinical signs and symptoms consistent with SARS-CoV-2. This test is not yet approved or cleared by the [place] FDA. When there are no FDA-approved or cleared tests available, and other criteria are met, FDA can make tests available under an emergency access mechanism called an Emergency Use Authorization (EUA). The EUA for this test is supported by the [place] of Health and Human Service's declaration that circumstances exist to justify the emergency use of in vitro diagnostics for the detection and/or diagnosis of the virus that causes COVID-19. This EUA will remain in effect for the duration of the COVID-19 declaration justifying emergency of IVDs, unless it is terminated or revoked by the FDA (after which the test may no longer be used). Performed By: #### C VDTBH #### [facility] [address] [place] [address] Dr. Piedad Adan DRUG SCREEN RAPID (URINE)on 01-28-2022 AMP Negative Normal NEGATIVE [facility] Comment on above: Performed By: #### D BONG, ERUR #### [facility] [address] [address] [address] Piedad Adan BAR Negative Normal NEGATIVE [facility] Comment on above: Performed By: #### D CEASARD, ERUR #### [facility] [address] [address] [address] Piedad Adan BUP Negative Normal NEGATIVE [facility] Comment on above: Performed By: #### D CEASARD, ERUR #### [facility] [address] [place] [address] Dr. Piedad Adan BZO Negative Normal NEGATIVE [facility] Comment on above: Performed By: #### D RUGRPD, ERUR #### [facility] [address] [address] [address] Piedad Adan KAROLYN Negative Normal NEGATIVE [facility] Comment on above: Performed By: #### D RUGRPD, ERUR #### [facility] [address] [place] [address] Dr. Piedad Adan CUT-OFFS SEE BELOW Normal [facility] Comment on above: Result Comment: AMP (Amphetamine): 500ng/mL, BAR (Barbituates): 200 ng/mL, BZO (Benzodiazepines): 150 ng/mL, BUP (Buprenorphine): 10 ng/mL, KAROLYN (Cocaine): 150 ng/mL, mAMP (Methamphetamine): 500 ng/mL, MTD (Methadone): 200 ng/mL, OPI (Opiates): 100 ng/mL, OXY (Oxycodone): 100 ng/mL, PCP (Phencyclidine): 25 ng/mL, PPX (Propoxyphene): 300 ng/mL, THC (Cannabinoids): 50 ng/mL, TCA (Trycyclic Antidepressants): 300 ng/mL Performed By: #### D RUGSAJAND, ERUR #### [facility] [address] [place] [address] Dr. Piedad Adan DRUG CUT HEADER DRUG CLASS TEST SYST EM CUT-OFF CONCENTRATIONS ARE FOLLOWS: Normal [facility] Comment on above: Performed By: #### D CEASARD, ERUR #### [facility] [address] [place] [address] Dr. Piedad Adan mAMP Negative Normal NEGATIVE [facility] Comment on above: Performed By: #### D RUGRPD, ERUR #### [facility] [address] [place] [address] Dr. Piedad Adan MTD Negative Normal NEGATIVE [facility] Comment on above: Performed By: #### D RUGRPD, ERUR #### [facility] [address] [place] [address] Dr. Piedad Adan OPI Negative Normal NEGATIVE [facility] Comment on above: Performed By: #### D BONG, ERUR #### [facility] [address] [place] [address] Dr. Piedad Adan OXY Negative Normal NEGATIVE [facility] Comment on above: Performed By: #### D BONG, ERUR #### [facility] [address] [place] [address] Dr. Piedad Adan PCP Negative Normal NEGATIVE [facility] Comment on above: Performed By: #### D BONG, ERUR #### [facility] [address] [place] [address] Dr. Piedad Adan PPX Negative Normal NEGATIVE [facility] Comment on above: Performed By: #### D BOGN, ERUR #### [facility] [address] [place] [address] Dr. Piedad Adan TCA Negative Normal NEGATIVE [facility] Comment on above: Performed By: #### D BONG, ERUR #### [facility] [address] [place] [address] Dr. Piedad Adan THC Negative Normal NEGATIVE [facility] Comment on above: Performed By: #### D BONG, ERUR #### [facility] [address] [place] [address] Dr. Piedad Adan ER URINE PROFILEon 2 Bilirubin Ql (U) Negative Normal NEGATIVE [facility] Comment on above: Performed By: #### Suyapa WOODY, ERUR #### [facility] [address] [place] [address] Dr. Piedad Adan Clarity (U) CLEAR Normal CLEAR [facility] Comment on above: Performed By: #### Suyapa WOODY, ERUR #### [facility] [address] [place] [address] Dr. Piedad Adan Color (U) LT. YELLOW Normal YELLOW [facility] Comment on above: Performed By: #### D BONG, ERUR #### [facility] [address] [place] [address] Dr. Piedad TUBBSAHSuyapa A micrscopic examina tion will be performed if indicated. Normal [facility] Comment on above: Performed By: #### D BONG, ERUR #### [facility] [address] [address] [address] Piedad Adan Glucose Ql (U) Negative Normal NEGATIVE [facility] Comment on above: Performed By: #### D RUGRPD, ERUR #### [facility] [address] [place] [address] Dr. Piedad Adan Hemoglobin Ql (U) Negative Normal NEGATIVE [facility] Comment on above: Performed By: #### D RUGRPD, ERUR #### [facility] [address] [place] [address] Dr. Piedad Adan Ketones Ql (U) Negative Normal NEGATIVE [facility] Comment on above: Performed By: #### Suyapa RUGSURINDER, ERUR #### [facility] [address] [place] [address] Dr. Piedad Adan LEUKOCYTES Negative Normal NEGATIVE [facility] Comment on above: Performed By: #### Suyapa WOOYD, ERUR #### [facility] [address] [place] [address] Dr. Piedad Aadn Nitrite Ql (U) Negative Normal NEGATIVE [facility] Comment on above: Performed By: #### Suyapa WOODY, ERUR #### [facility] [address] [place] [address] Dr. Piedad Adan pH (U) 6.0 [pH] Normal 5-9 [facility] Comment on above: Performed By: #### Suyapa WOODY, ERUR #### [facility] [address] [place] [address] Dr. Piedad Adan SPEC GRAVITY <=1.005 Abnormal 1.005-<=1.02 5 [facility] Comment on above: Performed By: #### D CEASARD, ERUR #### [facility] [address] [place] [address] Dr. Piedad Adan UA PROTEIN Negative Normal NEGATIVE/ TRACE [facility] Comment on above: Performed By: #### D CHEMORPD, ERUR #### [facility] [address] [place] [address] Dr. Piedad Adan UR MICRO IND NOT INDICATED Normal [facility] Comment on above: Performed By: #### D RUGRPD, ERUR #### [facility] [address] [place] [address] Dr. Piedad Adan Urobilinogen Qn (U) 0.2 {Sharda'U}/dL Normal 0.2 - 1. 0 [facility] Comment on above: Performed By: #### D KASIE WOODY #### [facility] [address] [place] [address] Dr. Piedad Adan ETHANOL (BLD ALC)on 01-29-20 22 ALC NOTE NOTE: 80 mg/dl is th e legal limit for a blood alcohol level Normal [facility] Comment on above: Performed By: #### E TH, ACET, CMP, SALYC #### [facility] [address] [place] [address] Dr. Piedad Adan Ethanol [Mass/Vol] 147 mg/dL Normal [facility] Comment on above: Performed By: #### E TH, ACET, CMP, SALYC #### [facility] [address] [place] [address] Dr. Piedad Adan PROF 14(COMP METB)on 022 Albumin [Mass/Vol] 4.1 g/dL Normal 3.4-5.0 [facility] Comment on above: Performed By: #### E TH, ACET, CMP, SALYC #### [facility] [address] [place] [address] Dr. Piedad Adan Albumin/Globulin [Mass ratio] 1.3 {ratio} Normal [facility] Comment on above: Performed By: #### E TH, ACET, CMP, SALYC #### [facility] [address] [place] [address] Dr. Piedad Adan ALP [Catalytic activity/Vol] 108 U/L Normal 46-116 [facility] Comment on above: Performed By: #### E TH, ACET, CMP, SALYC #### [facility] [address] [place] [address] Dr. Piedad Adan ALT [Catalytic activity/Vol] 42 U/L Normal 16-63 [facility] Comment on above: Performed By: #### E TH, ACET, CMP, SALYC #### [facility] [address] [place] [address] Dr. Piedad Adan Anion gap [Moles/Vol] 18.1 mmol/L Normal [facility] Comment on above: Performed By: #### E TH, ACET, CMP, SALYC #### [facility] [address] [place] [address] Dr. Piedad Adan AST [Catalytic activity/Vol] 22 U/L Normal 15-37 [facility] Comment on above: Performed By: #### E TH, ACET, CMP, SALYC #### [facility] [address] [place] [address] Dr. Piedad Adan Bilirubin [Mass/Vol] 0.5 mg/dL Normal 0.2-1.0 [facility] Comment on above: Performed By: #### E TH, ACET, CMP, SALYC #### [facility] [address] [place] [address] Dr. Piedad Adan Calcium [Mass/Vol] 9.5 mg/dL Normal 8.5-10.1 [facility] Comment on above: Performed By: #### E TH, ACET, CMP, SALYC #### [facility] [address] [place] [address] Dr. Piedad Adan Chloride [Moles/Vol] 98 mmol/L Normal 98-107 [facility] Comment on above: Performed By: #### E TH, ACET, CMP, SALYC #### [facility] [address] [place] [address] Dr. Piedad Adan CO2 [Moles/Vol] 24.0 mmol/L Normal 21.0-32.0 [facility] Comment on above: Performed By: #### E TH, ACET, CMP, SALYC #### [facility] [address] [place] [address] Dr. Piedad Adan Creatinine [Mass/Vol] 0.96 mg/dL Normal 0.70-1.30 [facility] Comment on above: Performed By: #### E TH, ACET, CMP, SALYC #### [facility] [address] [place] [address] Dr. Piedad Adan EGFR-AF NAMIBIAN >60 Normal >=60 [facility] Comment on above: Performed By: #### E TH, ACET, CMP, SALYC #### [facility] [address] [place] [address] Dr. Piedad Adan EGFR-NON AF NAMIBIAN >60 Normal >=60 [facility] Comment on above: Performed By: #### E TH, ACET, CMP, SALYC #### [facility] [address] [place] [address] Dr. Piedad Adan Globulin (S) [Mass/Vol] 3.1 g/dL Normal [facility] Comment on above: Performed By: #### E TH, ACET, CMP, SALYC #### [facility] [address] [place] [address] Dr. Piedad Adan Glucose [Mass/Vol] 121 mg/dL Critically high 74-106 [facility] Comment on above: Performed By: #### E , ACET, CMP, SALYC #### [facility] [address] [place] [address] Dr. Piedad Adan Potassium [Moles/Vol] 3.1 mmol/L Critically low 3.5-5.1 [facility] Comment on above: Performed By: #### E , ACET, CMP, SALYC #### [facility] [address] [place] [address] Dr. Piedad Aadn Protein [Mass/Vol] 7.2 g/dL Normal 6.4-8.2 [facility] Comment on above: Performed By: #### E TH, ACET, CMP, SALYC #### [facility] [address] [place] [address] Dr. Piedad Adan Sodium [Moles/Vol] 137 mmol/L Normal 136-145 [facility] Comment on above: Performed By: #### E TH, ACET, CMP, SALYC #### [facility] [address] [place] [address] Dr. Piedad Adan Urea nitrogen [Mass/Vol] 15.0 mg/dL Normal 7.0-18.0 [facility] Comment on above: Performed By: #### E TH, ACET, CMP, SALYC #### [facility] [address] [address] [address] Piedad Adan Urea nitrogen/Creatinine [Mass ratio] 15.6 mg/mg Normal [facility] Comment on above: Performed By: #### E TH, ACET, CMP, SALYC #### [facility] [address] [address] [address] Piedad Adan PROTIMEon 01-28-2022 INR Coag (PPP) [Relative time] 1.01 {INR} Normal [facility] Comment on above: Performed By: #### P TT, PT ####[facility] [id number] [address]Dr. Piedad Adan INR GUIDELINES SEE BELOW Normal [facility] Comment on above: Result Comment: MICHELE RED INR: 2.0 - 3.0 CONDITIONS NOT LISTED BELOW 2.5 - 3.5 FOR PROSTHETIC HEART VALVE REPLACEMENT 2.5 - 3.5 RECURRENT THROMBOSIS Performed By: #### P TT, PT ####[facility] [id number] [address]Dr. Piedad Adan PT Coag (PPP) [Time] 10.9 s Normal 9.0-11.6 [facility] Comment on above: Performed By: #### P TT, PT ####[facility] [id number] [address]Dr. Piedad Adan PTTon 01-28-2022 aPTT Coag (Bld) [Time] 26.8 s Normal 22.3-36.2 [facility] Comment on above: Performed By: #### P TT, PT ####[facility] [address] [address]DrTristan Adan SALICYLATEon 01-28-2022 SALICYLATE 4.1 mg/dL Normal <=19.9 [facility] Comment on above: Performed By: #### E TH, ACET, CMP, SALYC #### [facility] [address] [address] [address] Piedad Adan Q - CB/LUPUS PANEL 5on 04-0 ACTIN (SMOOTH MUSCLE) ANTIBODY (IGG) <20 Normal [facility] Comment on above: Order Comment: [facility] performed at: [facility] [facility],, [id number] [place] [address], [id number], [employer] Operator: Annie Javier MD,PhD,BARBY [facility] Collection Date/Time: [facility] Results Received Date/Time: [facility] Reported Date/Time: Result Comment: Refe rence Range: <20 NEGATIVE > OR = 20 POSITIVE Antibodies recognizing actin are the main component of smooth muscle antibodies associated with autoimmune liver disease. Actin antibodies are found in approximately 75% of patients with autoimmune hepatitis (AIH) type 1, approximately 65% of patients with autoimmune cholangitis, approximately 30% of patients with primary biliary cirrhosis, and approximately 2% of healthy people. High values are closely correlated with AIH type 1. Performed By: #### 7 [id number], [id number], [id number], 549, [id number], [id number], [id number] #### [facility] [address] [place] [address] CB SCREEN, IFA Negative Normal NEGATIVE [facility] Comment on above: Order Comment: [facility] performed at: [facility] [facility],, [id number] [place] [address], , [employer]: Annie Javier MD,PhD,BARBY [facility] Collection Date/Time: [facility] Results Received Date/Time: [facility] Reported Date/Time: Result Comment: CB IFA is a first line screen for detecting the presence of up to approximately 150 autoantibodies in various autoimmune diseases. A negative CB IFA result suggests an CB-associated autoimmune disease is not present at this time, but is not definitive. If there is high clinical suspicion for Sjogren's syndrome, testing for anti-SS-A/Ro antibody should be considered. Anti-Yesy-1 antibody should be considered for clinically suspected inflammatory myopathies. AC-0: Negative International Consensus on CB Patterns https://doi.org/10.1515/hvpu-0121-6667 For additional information, please refer to http://education.[employer].[place]/faq/TQC045 (This link is being provided for information/educational purposes only.) Performed By: #### 7 655, 5042, [id number], 549, [id number], [id number], [id number] #### [facility] [address] [place] [address] COMPLEMENT COMPONENT C3C 144 mg/dL Normal 82-185 [facility] [place] Comment on above: Order Comment: [facility] performed at: [facility],, [address] [place] [address], , [employer] Operator: Annie Javier MD,PhD,BARBY [facility] Collection Date/Time: [facility] Results Received Date/Time: [facility] Reported Date/Time: Performed By: #### 7 655, 5042, 56472, 549, 9076F, 79830, 63472O #### [facility] [address] [place] [address] COMPLEMENT COMPONENT C4C 31 mg/dL Normal 15-53 [facility] Specialist Comment on above: Order Comment: [facility] performed at: [employer],, [address] [place] [address], , [employer] Operator: Annie Javier MD,PhD,BARBY [facility] Collection Date/Time: [facility] Results Received Date/Time: [facility] Reported Date/Time: Performed By: #### 7 655, 5042, 78680, 549, 9076F, 02773, 16748Q #### [facility] [address] [place] [address] DNA AB (DS) CRITHIDIA,IFA Negative Normal NEGATIVE [facility] [place] Comment on above: Order Comment: [facility] performed at: [facility],, [address] [address], [place], , [employer] Operator: Annie Javier MD,PhD,BARBY [facility] Collection Date/Time: [facility] Results Received Date/Time: [facility] Reported Date/Time: Performed By: #### 7 655, 5042, 65330, 549, 9076F, 05822, 59215D #### [facility] Default [address] [place] [address] GASTRIC PARIETAL CELL AB 113.8 [facility] High [facility] [place] Comment on above: Order Comment: [facility] performed at: [facility],, [address] [place] [address], , [employer] Operator: Annie Javier MD,PhD,BARBY [facility] Collection Date/Time: [facility] Results Received Date/Time: [facility] Reported Date/Time: Result Comment: Refe rence Range: <=20.0 NEGATIVE 20.1-24.9 EQUIVOCAL >=25.0 POSITIVE Anti-gastric parietal cell antibodies (Anti-GPA) were previously tested for by indirect immunofluorescence (IF) using mouse stomach as a substrate. Identification of the specific antibody target as H+/K+ ATPase protein (a gastric proton pump) has led to the development of an MAYKEL based assay. Antibodies to this protein are present in approximately 80% of patients with pernicious anemia and a small percentage of the general adult population. The latter percentage increases with age and may reflect the presence of atrophic gastritis. A negative test does not exclude a diagnosis of pernicious anemia. A test for intrinsic factor blocking antibody (IFab) may provide serological evidence in support of the diagnosis in some of these patients. Performed By: #### 7 655, 5042, 91987, 549, 9076F, 68985, 29236N #### [facility] Default [address] [place] [address] MITOCHONDRIAL AB SCREEN Negative Normal NEGATIVE [facility] [place] Comment on above: Order Comment: [facility] performed at: [employer],, [address], [place], , [employer] Operator: Annie Javier MD,PhD,BARBY [facility] Collection Date/Time: [facility] Results Received Date/Time: [facility] Reported Date/Time: Result Comment: John t cytoplasmic staining is observed in the parietal cells only. Consider requesting order code [id number], Parietal Cell Antibody, MAYKEL, for confirmation if clinically indicated. Performed By: #### 7 655, 5042, 73476, 549, 9076F, 60892, 29738Y #### [facility] Default [address] [place] [address] MYOCARDIAL AB, IF Negative Normal NEGATIVE [facility] Compatibility Test Engineer Comment on above: Order Comment: [facility] performed at: , [facility],, [address] [place] [address], , [employer] Operator: Annie Javier MD,PhD,BARBY [facility] Collection Date/Time: [facility] Results Received Date/Time: [facility] Reported Date/Time: Result Comment: This test was developed and its analytical performance characteristics have been determined by [facility]. It has not been cleared or approved by FDA. This assay has been validated pursuant to the CLIA regulations and is used for clinical purposes. Performed By: #### 7 655, 5042, 41842, 549, 9076F, 48457, 89094T #### [facility] Default [address] [place] [address] RETICULIN IGA SCREEN Negative Normal NEGATIVE [facility] Compatibility Test Engineer Comment on above: Order Comment: [facility] performed at: [facility],, [address], [place], , [employer] Operator: Annie Javier MD,PhD,BARBY [facility] Collection Date/Time: [facility] Results Received Date/Time: [facility] Reported Date/Time: Performed By: #### 7 655, 5042, 12802, 549, 9076F, 03085, 86387O #### [facility] [address] [place] [address] RF <14 Normal <14 [facility] Specialist Comment on above: Order Comment: [facility] performed at: [facility],, [address] [place] [address], , [employer] Operator: Annie Javier MD,PhD,BARBY [facility] Collection Date/Time: [facility] Results Received Date/Time: [facility] Reported Date/Time: Performed By: #### 7 655, 5042, 67877, 549, 9076F, 39252, 16735L #### [facility] Default [address] [place] [address] RIBOSOMAL P ANTIBODY <1.0 NEG Normal <1.0 NEGATIVE [facility] Specialist Comment on above: Order Comment: [facility] performed at: [facility],, [address] [place] [address], , [employer] Operator: Annie Javier MD,PhD,BARBY [facility] Collection Date/Time: [facility] Results Received Date/Time: [facility] Reported Date/Time: Performed By: #### 7 655, 5042, 03175, 549, 9076F, 03111, 06857H #### [facility] Default [address] [place] [address] SCL-70 ANTIBODY <1.0 NEG Normal <1.0 NEGATIVE [facility] Specialist Comment on above: Order Comment: [facility] performed at: [facility],, [address] [place] [address], , [employer] Operator: Annie Javier MD,PhD,BARBY [facility] Collection Date/Time: [facility] Results Received Date/Time: [facility] Reported Date/Time: Performed By: #### 7 655, 5042, 99605, 549, 9076F, 31504, 70582C #### [facility] Default [address] [place] [address] SJOGREN'S ANTIBODY (SS-A) <1.0 NEG Normal <1.0 NEGATIVE [facility] Specialist Comment on above: Order Comment: [facility] performed at: [facility],, [address] [place] [address], , [employer] Operator: Annie Javier MD,PhD,BARBY [facility] Collection Date/Time: [facility] Results Received Date/Time: [facility] Reported Date/Time: Performed By: #### 7 655, 5042, 99514, 549, 9076F, 23543, 79393E #### [facility] Default [address] [place] [address] SJOGREN'S ANTIBODY (SS-B) <1.0 NEG Normal <1.0 NEGATIVE [facility] Specialist Comment on above: Order Comment: [facility] performed at: [facility],, [address] [place] [address], , [employer] Operator: Annie Javier MD,PhD,BARBY [facility] Collection Date/Time: [facility] Results Received Date/Time: [facility] Reported Date/Time: Performed By: #### 7 655, 5042, 42128, 549, 9076F, 66170, 98478T #### [facility] [address] [place] [address] SM ANTIBODY <1.0 NEG Normal <1.0 NEGATIVE [facility] Specialist Comment on above: Order Comment: [facility] performed at: [facility],, [address] [place] [address], , [employer] Operator: Annie Javier MD,PhD,BARBY [facility] Collection Date/Time: [facility] Results Received Date/Time: [facility] Reported Date/Time: Performed By: #### 7 655, 5042, 94347, 549, 9076F, 97728, 21544F #### [facility] Default [address] [place] [address] SM/TEACHING ASSISTANT ANTIBODY <1.0 NEG Normal <1.0 NEGATIVE [facility] [place] Comment on above: Order Comment: [facility] performed at: [employer],, [address] [place] [address], , [employer] Operator: Annie Javier MD,PhD,BARBY [facility] Collection Date/Time: [facility] Results Received Date/Time: [facility] Reported Date/Time: Performed By: #### 7 655, 5042, 12046, 549, 9076F, 81808, 28527V #### [facility] Default [address] [place] [address] STRIATED MUSCLE AB SCREEN Negative Normal NEGATIVE [facility] [place] Comment on above: Order Comment: [facility] performed at: [employer],, [address] [place] [address], , [employer] Operator: Annie Javier MD,PhD,BARBY [facility] Collection Date/Time: [facility] Results Received Date/Time: [facility] Reported Date/Time: Result Comment: This test was developed and its analytical performance characteristics have been determined by [facility]. It has not been cleared or approved by FDA. This assay has been validated pursuant to the CLIA regulations and is used for clinical purposes. Performed By: #### 7 655, 5042, 31392, 549, 9076F, 57146, 65905N #### [facility] Default [address] [place] [address] THYROID PEROXIDASE ANTIBODIES 1 IU/mL Normal <9 [facility] [place] Comment on above: Order Comment: [facility] performed at: , [facility],, [address] [place], [address], [employer] Operator: Annie Javier MD,PhD,BARBY [facility] Collection Date/Time: [facility] Results Received Date/Time: [facility] Reported Date/Time: Performed By: #### 7 655, 5042, 06541, 549, 9076F, 43506, 34721G #### [facility] [address] [place] [address] Q - HEAVY METALS PANEL,BLOOD on 10-29-2021 ARSENIC, BLOOD <3 Normal <23 [facility] [place] Comment on above: Order Comment: [facility] performed at: [facility], [facility], [address], [place], [place], , [employer] Operator: Alphonso Lu M.D.,PhD [facility] Collection Date/Time: [facility] Results Received Date/Time: [facility] Reported Date/Time: Result Comment: Whol e Blood Arsenic level >100 mcg/L is indicative of acute/chronic exposure. Urine is usually the best specimen for the analysis of arsenic in body fluids. Blood levels tend to be low even when urine concentrations are high This test was developed and its analytical performance characteristics have been determined by [facility] [place], [place]. It has not been cleared or approved by the U.S. Food and Drug Administration. This assay has been validated pursuant to the CLIA regulations and is used for clinical purposes. Performed By: #### 7 655, 5042, 29192, 549, 9076F, 71264, 57281Y #### [facility] Default [address] [place] [address] LEAD, BLOOD <1 Normal <5 [facility] [place] Comment on above: Order Comment: [facility] performed at: [facility], [facility], [address], [place], [place], , [employer] Operator: Alphonso Lu M.D.,PhD [facility] Collection Date/Time: [id number] [facility] Results Received Date/Time: [facility] Reported Date/Time: Result Comment: Anal ysis was performed by Inductively Coupled Plasma Mass Spectrometry (ICPMS) This test was developed and its analytical performance characteristics have been determined by [facility] [place], [place]. It has not been cleared or approved by the U.S. Food and Drug Administration. This assay has been validated pursuant to the CLIA regulations and is used for clinical purposes. Performed By: #### 7 655, 5042, 48555, 549, 9076F, 84234, 79323H #### [facility] Default [address] [place] [address] MERCURY, BLOOD <4 Normal <=10 [facility] [place] Comment on above: Order Comment: [facility] performed at: [facility], [facility], [address], [place], [place], , [employer] Operator: Alphonso Lu M.D.,PhD [facility] Collection Date/Time: [id number] [facility] Results Received Date/Time: [facility] Reported Date/Time: Result Comment: This test was developed and its analytical performance characteristics have been determined by [facility] [place], [place]. It has not been cleared or approved by the U.S. Food and Drug Administration. This assay has been validated pursuant to the CLIA regulations and is used for clinical purposes. Performed By: #### 7 655, 5042, 32135, 549, 9076F, 48133, 33162S #### [facility] Default [address] [place] [address] Q - HOMOCYSTEINEon 2 HOMOCYSTEINE 13.4 umol/L High <11.4 [facility] Specialist Comment on above: Order Comment: [facility] performed at: [place], [facility], [address] , [address] [place] [address], [address], [employer] Operator: Lg Segura MD [facility] Collection Date/Time: [facility] Results Received Date/Time: [facility] Reported Date/Time: Result Comment: Homo cysteine is increased by functional deficiency of folate or vitamin B12. Testing for methylmalonic acid differentiates between these deficiencies. Other causes of increased homocysteine include renal failure, folate antagonists such as methotrexate and phenytoin, and exposure to nitrous oxide. Melia Soriano, et al., Anastasiya Exercise Physiology Professor Med. 1999;131(5):331-9. Performed By: #### 7 655, 5042, 85905, 549, 9076F, 97000, 39181A #### [facility] Default [address] [place] [address] Q - LYME DISEASE AB (IGG,IGM )on 10-29-2021 18 KD (IGG) BAND Non-Reactive Normal [place] [facility] Compatibility Test Engineer Comment on above: Order Comment: [facility] performed at: [place], [facility], [address] , [address] [place] [address], [address], [employer] Operator: Lg Segura MD [facility] Collection Date/Time: [facility] Results Received Date/Time: [facility] Reported Date/Time: Performed By: #### 7 655, 5042, 57935, 549, 9076F, 08901, 36290K #### [facility] Default [address] [place] [address] 23 KD (IGG) BAND Non-Reactive Normal [place] [facility] Compatibility Test Engineer Comment on above: Order Comment: [facility] performed at: [place], [facility], [address] , [address] [place] [address], [address], [employer] Operator: Lg Segura MD [facility] Collection Date/Time: [facility] Results Received Date/Time: [facility] Reported Date/Time: Performed By: #### 7 655, 5042, 32606, 549, 9076F, 18649, 55404W #### [facility] Default [address] [place] [address] 23 KD (IGM) BAND Non-Reactive Normal [place] Compatibility Test Engineer Comment on above: Order Comment: [facility] performed at: [place], [facility], [address] [facility], [address] [place] [address], [address] [place] [address], [employer] Operator: Lg Segura MD [facility] Collection Date/Time: [facility] Results Received Date/Time: [facility] Reported Date/Time: Performed By: #### 7 655, 5042, 34776, 549, 9076F, 69547, 20082C #### [facility] Default [address] [place] [address] 28 KD (IGG) BAND Non-Reactive Normal [place] [facility] [place] Compatibility Test Engineer Comment on above: Order Comment: [facility] performed at: [facility], [address] [place] [address], [address] [place] [address], [address] [place] [address], [employer] Operator: Lg Segura MD [facility] Collection Date/Time: [facility] Results Received Date/Time: [facility] Reported Date/Time: Performed By: #### 7 655, 5042, 07647, 549, 9076F, 62897, 84953A #### [facility] Default [address] [place] [address] 30 KD (IGG) BAND Non-Reactive Normal [place] Compatibility Test Engineer Comment on above: Order Comment: [facility] performed at: [facility], [address] , [address] [place] [address], [address] [place] [address], [employer] Operator: Lg Segura MD [facility] Collection Date/Time: [facility] Results Received Date/Time: [facility] Reported Date/Time: Performed By: #### 7 655, 5042, 93234, 549, 9076F, 08220, 44772A #### [facility] Default [address] [place] [address] 39 KD (IGG) BAND Non-Reactive Normal [place] Compatibility Test Engineer Comment on above: Order Comment: [facility] performed at: [place], [facility], [address] [facility], [address] [place] [address], [address] [place] [address], [employer] Operator: Lg Segura MD [facility] Collection Date/Time: [facility] Results Received Date/Time: [facility] Reported Date/Time: Performed By: #### 7 655, 5042, 77178, 549, 9076F, 60323, 74837L #### [facility] Default [address] [place] [address] 39 KD (IGM) BAND Non-Reactive Normal [facility]n [place] Compatibility Test Engineer Comment on above: Order Comment: [facility] performed at: [place], [facility], 5 [facility], [address] [place] [address], [address] [place] [address], [employer] Operator: Lg Segura MD [facility] Collection Date/Time: [facility] Results Received Date/Time: [facility] Reported Date/Time: Performed By: #### 7 655, 5042, 33255, 549, 9076F, 32929, 13354X #### [facility] Default [address] [place] [address] 41 KD (IGG) BAND Non-Reactive Normal [facility] rn [place] Compatibility Test Engineer Comment on above: Order Comment: [facility] performed at: [place], [facility], 5 [facility], [address] [place] [address], [address] [place] [address], [employer] Operator: Lg Segura MD [facility] Collection Date/Time: [facility] Results Received Date/Time: [facility] Reported Date/Time: Performed By: #### 7 655, 5042, 16979, 549, 9076F, 85897, 75653M #### [facility] Default [address] [place] [address] 41 KD (IGM) BAND Non-Reactive Normal [place] [facility] Compatibility Test Engineer Comment on above: Order Comment: [facility] performed at: [facility], [facility], [address] , [address] [place] [address], [address], [employer] Operator: Lg Segura MD [facility] Collection Date/Time: [facility] Results Received Date/Time: [facility] Reported Date/Time: Result Comment: As p er CDC criteria, a Lyme disease IgG Immunoblot must show reactivity to at least 5 of 10 specific borrelial proteins to be considered positive; similarly, a positive Lyme disease IgM immunoblot requires reactivity to 2 of 3 specific borrelial proteins. Although considered negative, IgG reactivity to fewer specific borrelial proteins or IgM reactivity to only 1 protein may indicate recent B. burgdorferi infection and warrant testing of a later sample. A positive IgM but negative IgG result obtained more than a month after onset of symptoms likely represents a false- positive IgM result rather than acute Lyme disease. In rare instances, Lyme disease immunoblot reactivity may represent antibodies induced by exposure to other spirochetes. Lyme immunoblot testing should only be performed on samples from patients who have had a Positive or Equivocal result in a screening assay. Performed By: #### 7 655, 5042, 03128, 549, 9076F, 72660, 64272L #### [facility] Default [address] [place] [address] 45 KD (IGG) BAND Non-Reactive Normal [place] [facility] Compatibility Test Engineer Comment on above: Order Comment: [facility] performed at: [place], [facility], [address] , [address] [facility], [place], [address], [employer] Operator: Lg Segura MD [facility] Collection Date/Time: [facility] Results Received Date/Time: [facility] Reported Date/Time: Performed By: #### 7 655, 5042, 11414, 549, 9076F, 97720, 65142L #### [facility] Default [address] [place] [address] 58 KD (IGG) BAND Non-Reactive Normal [place] Compatibility Test Engineer Comment on above: Order Comment: [facility] performed at: [place], [facility], [address] [place] [address], [address] [place] [address], [address] [place] [address], [employer] Operator: Lg Segura MD [facility] Collection Date/Time: [facility] Results Received Date/Time: [facility] Reported Date/Time: Performed By: #### 7 655, 5042, 57495, 549, 9076F, 64955, 10034V #### [facility] Default [address] [place] [address] 66 KD (IGG) BAND Non-Reactive Normal [place] Compatibility Test Engineer Comment on above: Order Comment: [facility] performed at: [place], [facility], [address] [place] [address], [address] [place] [address], [address] [place] [address], [employer] Operator: Lg Segura MD [facility] Collection Date/Time: [facility] Results Received Date/Time: [facility] Reported Date/Time: Performed By: #### 7 655, 5042, 74058, 549, 9076F, 78040, 20221Q #### [facility] Default [address] [place] [address] 93 KD (IGG) BAND Non-Reactive Normal [place] [facility] [place] Compatibility Test Engineer Comment on above: Order Comment: [facility] performed at: [place], [facility], [address] [facility], [address] [place] [address], [address] [place] [address], [employer] Operator: Lg Segura MD [facility] Collection Date/Time: [facility] Results Received Date/Time: [facility] Reported Date/Time: Performed By: #### 7 655, 5042, 05424, 549, 9076F, 79130, 13453I #### [facility] Default [address] [place] [address] LYME DISEASE AB(IGG),BLOT Negative Normal NEGATIVE [place] Compatibility Test Engineer Comment on above: Order Comment: [facility] performed at: [place], [facility], [address] [place] [address], [address] [place] [address], [address] [place] [address], [employer] Operator: Lg Segura MD [facility] Collection Date/Time: [facility] Results Received Date/Time: [facility] Reported Date/Time: Performed By: #### 7 655, 5042, 29023, 549, 9076F, 43073, 53283Y #### [facility] Default [address] [place] [address] LYME DISEASE AB(IGM),BLOT Negative Normal NEGATIVE [facility] Specialist Comment on above: Order Comment: [facility] performed at: [place], [facility], [address] [place] [address], [address] [place] [address], [address] [place] [address], [employer] Operator: Lg Segura MD [facility] Collection Date/Time: [facility] Results Received Date/Time: [facility] Reported Date/Time: Performed By: #### 7 655, 5042, 78844, 549, 9076F, 41405, 79102G #### [facility] Default [address] [place] [address] Q - PROTEIN ELECTROPHORESIS, WITH TOTAL PROTEIN AND RFX TO IFon 10-29-2021 ABNORMAL PROTEIN BAND 1 SEE NOTE Normal NONE DETECTED [facility] Compatibility Test Engineer Comment on above: Order Comment: [facility] performed at: [place], [facility], 5 [facility], [address] [place] [address], [address] [place] [address], [employer] Operator: Lg Segura MD [facility] Collection Date/Time: [facility] Results Received Date/Time: [facility] Reported Date/Time: Result Comment: See below Performed By: #### 7 655, 5042, 17568, 549, 9076F, 44666, 97856E #### [facility] Default [address] [place] [address] Albumin [Mass/Vol] 3.8 g/dL Normal 3.8-4.8 [place] [facility] Compatibility Test Engineer Comment on above: Order Comment: [facility] performed at: [place], [facility], [address] [place] [address], [address] [place] [address], [address] [place] [address], [employer] Operator: Lg Segura MD [facility] Collection Date/Time: [facility] Results Received Date/Time: [facility] Reported Date/Time: Performed By: #### 7 655, 5042, 46764, 549, 9076F, 54392, [id number] #### [facility] Default [address] [place] [address] ALPHA 1 GLOBULIN 0.3 g/dL Normal 0.2-0.3 [facility] Compatibility Test Engineer Comment on above: Order Comment: [facility] Testing performed at: [place], [facility], [address] [place] [address], [address] [place] [address], [address] [place] [address], [employer] Operator: Lg Segura MD [facility] Date/Time: [facility] Results Received Date/Time: [facility] Reported Date/Time: Performed By: #### 7 655, 5042, 80872, 549, 9076F, 08882, 76800S #### [facility] Default [address] [place] [address] ALPHA 2 GLOBULIN 0.7 g/dL Normal 0.5-0.9 [facility] Compatibility Test Engineer Comment on above: Order Comment: [facility] Testing performed at: [place], [facility], [address] [place] [address], [address] [place] [address], [address] [place] [address], [employer] Operator: Lg Segura MD [facility] Date/Time: [facility] Results Received Date/Time: [facility] Reported Date/Time: Performed By: #### 7 655, 5042, 59129, 549, 9076F, 26657, 54456P #### [facility] Default [address] [place] [address] BETA 1 GLOBULIN 0.4 g/dL Normal 0.4-0.6 [place] Compatibility Test Engineer Comment on above: Order Comment: [facility] Testing performed at: [place], [facility], [address] [place] [address], [address] [place] [address], [address] [place] [address], [employer] Operator: Lg Segura MD [facility] Date/Time: [facility] Results Received Date/Time: [facility] Reported Date/Time: Performed By: #### 7 655, 5042, 36892, 549, 9076F, 96105, 55263F #### [facility] [address] [place] [address] BETA 2 GLOBULIN 0.4 g/dL Normal 0.2-0.5 [place] Compatibility Test Engineer Comment on above: Order Comment: [facility] Testing performed at: [place], [facility], [address] [place] [address], [address] [place] [address], [address] [place] [address], [employer] Operator: Lg Segrua MD [facility] Date/Time: [facility] Results Received Date/Time: [facility] Reported Date/Time: Performed By: #### 7 655, 5042, 15135, 549, 9076F, 33524, 78050N #### [facility] Default [address] [place] [address] GAMMA GLOBULIN 0.5 g/dL Low 0.8-1.7 [place] Compatibility Test Engineer Comment on above: Order Comment: [facility] Testing performed at: [place], [facility], [address] [place] [address], [address] [place] [address], [address] [place] [address], [employer] Operator: Lg Segura MD [facility] Date/Time: [facility] Results Received Date/Time: [facility] Reported Date/Time: Performed By: #### 7 655, 5042, 85833, 549, 9076F, 19135, 12832O #### [facility] Default [address] [place] [address] INTERPRETATION SEE NOTE Normal [place] Compatibility Test Engineer Comment on above: Order Comment: [facility] performed at: [facility] [facility], [address], [address] [place] [address], [address], [employer] Operator: Lg Segura MD [facility] Date/Time: [facility] Results Received Date/Time: [facility] Reported Date/Time: Result Comment: Consistent with hypogammaglobulinemia. Serum free light chains or urine immunofixation should be considered if plasma cell dyscrasias are a possible clinical diagnosis. Evaluation reveals a faint restricted band (M-spike) migrating in the gamma globulin region. If not already requested, Immunofixation should be considered. Performed By: #### 7 655, 5042, 49133, 549, 9076F, 51266, 97513T #### [facility] [address] [place] [address] Result Comment: A fa int band in IgG [place] cannot be ruled out from the serum immunofixation electrophoresis pattern. Consider repeat of serum and/or urine immunofixation electrophoresis if clinically indicated. Protein [Mass/Vol] 6.0 g/dL Low 6.1-8.1 [facility] Compatibility Test Engineer Comment on above: Order Comment: [facility] Testing performed at: [facility] [facility], [address], [address] [facility], [place], [address], [employer] Operator: Lg Segura MD [facility] Date/Time: [facility] Results Received Date/Time: [facility] Reported Date/Time: Performed By: #### 7 655, 5042, 27604, 549, 9076F, 14926, 04972Q #### [facility] Default [address] [place] [address] Q - VITAMIN B1 (THIAMINE),BL OODon 10-29-2021 VITAMIN B1 (THIAMINE), BLOOD, LC/MS/MS 150 nmol/L Normal 78-185 [facility] Compatibility Test Engineer Comment on above: Order Comment: [facility] Testing performed at: [facility], [address], [place], [place], , [employer] Operator: Alphonso Lu M.D.,PhD [facility] Date/Time: [id number] [facility] Results Received Date/Time: [facility] Reported Date/Time: Result Comment: Millicent min supplementation within 24 hours prior to blood draw may affect the accuracy of the results. This test was developed and its analytical performance characteristics have been determined by [facility] [place], [place]. It has not been cleared or approved by the U.S. Food and Drug Administration. This assay has been validated pursuant to the CLIA regulations and is used for clinical purposes. Performed By: #### 7 655, 5042, 47645, 549, 9076F, 30111, 80579Y #### [facility] Default [address] [place] [address] TSHon 10-29-2021 TSH 0.846 uIU/mL Normal 0.400-4.500 [facility] Specialist Comment on above: Performed By: #### T SH, VITD #### [facility] [address] [place], [place] [id number] Vitamin B12/Folateon 022 Cobalamin (Vitamin B12) [Mass/Vol] 275 pg/mL Normal 211-946 [facility] Specialist Comment on above: Performed By: #### 7 655, 5042, 19638, 549, 9076F, 92611, 88072F #### [facility] Default [address] [place] [address] FOL 16.9 ng/mL Normal >4.7 [facility] Specialist Comment on above: Result Comment: Refe rence range change 06/16/2017. Prior reference range F 4.8-37.3 ng/mL, M 4.5-32.2 ng/mL. Performed By: #### 7 655, 5042, 59947, 549, 9076F, 65485, 25792H #### [facility] Default [address] [place] [address] Vitamin D 25-OHon 10-29-2021 VIT D 25 OH 50 ng/ml Normal >29 [facility] Specialist Comment on above: Result Comment: Millicent min D Status Deficiency <20 ng/mL Insufficiency 20-29 ng/mL Optimal 30-100 ng/mL Possible Toxicity >=150 ng/mL Performed By: #### 7 655, 8382, 44356, 549, 9076F, 32362, 89081B #### [facility] Default [address] [place] [address] XR Spine Lumbar 4+ Views*on 09-08-2021 XR Spine Lumbar 4+ Views* FINDINGS: Six non-rib bearing, lumbar appearing vertebral bodies throughout the lumbar spine Mild thoracolumbar dextroscoliosis. Mild disc space loss throughout the distal thoracic and entire lumbar spine relative sparing mid lumbar region. Mild anterior wedging distal thoracic region, non-acute. Minimal retrolisthesis of the upper lumbar region. Sclerosis involves posterior elements of the mid and distal lumbar spine and sacroiliac joints; however, no spondylolysis is seen. No acute fracture is identified. Soft tissues are relatively unremarkable. IMPRESSION: 1. Mild diffuse arthritis. 2. Minimal anterior wedging distal thoracic region, non-acute. Report reported and signed by Freedom Amin on 09/08/2021 1528 Normal [facility] Compatibility Test Engineer [facility] (CARDMN[facility] ----- FREEDOM RODGERS ([id number]) 1960 M Date Time Provider Department 08/04/21 ROXANA DOWNING During your visit today, we recorded the following information about you: [facility] 08/04/2021 9:22 AM Signed Received outside records from [facility] admission of 08-02-2021 - Saved to Outside Record Last OV in this dept 05/26/2021 Kyle Parsons [facility] Allergies As of Date: 08/04/2021 Noted Allergy Reaction IODINATED CONTRAST MEDIA 09/08/2004 4 - Hives Date Reviewed: 05/26/2021 Reviewed by: Connor Morton APRN.SALES MANAGER - Fully Assessed Reason for Visit: Received Outside Medical Records [[id number]] Prescriptions as of 08/04/2021 - metoprolol succinate ER (TOPROL XL) 25 mg 24 hr tablet Take 1 tablet by mouth twice daily. - losartan-hydroCHLOROthiaz renetta (HYZAAR) 100-25 mg per tablet Take 1 tablet by mouth once daily. Facility-Administered Medications as of 08/04/2021 - perflutren lipid microspheres 1.3 mL in NaCl (PF) 0.9% 10 mL injection (DEFINITY) - sodium chloride 0.9 % (flush) 10 mL (BD POSIFLUSH) Problem List As Of Date 08/04/2021 Noted Resolved DIZZINESS AND GIDDINESS [R42] 09/08/2004 SUBJECTIVE TINNITUS [H93.19] 09/08/2004 SWELLING IN HEAD AND NECK [R22.0, R22.1] 09/08/2004 Myelopathy of thoracic region [M47.14] 06/30/2016 Myelopathy (HCC) [G95.9] 07/05/2016 Nicotine use disorder, F17.2 [F17.200] 08/01/2021 Encounter Status:Closed by KYLE DAY on [facility]04[facility]21 [facility] FR[facility]YN Tele[facility] (BEE) ----- FREEDOM RODGERS ([id number]) 1960 M Date Time Provider Department 08/03/21 ROXANA DOWNING During your visit today, we recorded the following information about you: Kyle Patterson 08/03/2021 4:21 PM Signed August 03, 2021 4:16 PM Patient Name: Freedom Rodgers [id number] Contact Information: [phone] (home) [phone] (cell) Last visit with Provider: 05/26/2021 Reason for Call: Patient tested positive for Covid on 08/01/2021 (was previously tested on 07/30/2021 by employer and was negative). His loop recorder implant was cancelled. He was admitted at [place] on 08/01/2021 and was discharged on 08/02/2021. Records will be requested STAT Intermittent stabbing Pain was in the mid-back area and has moved to the right shoulder, back and chest areas shooting down right arm, some swelling in the right hand and is colder than his left hand. Physician: Roxana Downing MD Thank you, Kyle Parsons [facility] The patient was informed that our caregivers are afforded 72 business hours to review and respond telephone messages. Roxana Downing MD 08/03/2021 5:28 PM Signed I returned the telephone call today regarding: See below. He is home recuperating from COVID. I advised him that if he gets worse, he should come here or to another of our facilities for evaluation for his chest pain Sx. Roxana Downing MD Allergies As of Date: 08/03/2021 Noted Allergy Reaction IODINATED CONTRAST MEDIA 09/08/2004 4 - Hives Date Reviewed: 05/26/2021 Reviewed by: Connor Morton APRN.SALES MANAGER - Fully Assessed Reason for Visit: Patient Update [1234] Prescriptions as of 08/03/2021 - metoprolol succinate ER (TOPROL XL) 25 mg 24 hr tablet Take 1 tablet by mouth twice daily. - losartan-hydroCHLOROthiaz renetta (HYZAAR) 100-25 mg per tablet Take 1 tablet by mouth once daily. Facility-Administered Medications as of 08/03/2021 - perflutren lipid microspheres 1.3 mL in NaCl (PF) 0.9% 10 mL injection (DEFINITY) - sodium chloride 0.9 % (flush) 10 mL (BD POSIFLUSH) Problem List As Of Date 08/03/2021 Noted Resolved DIZZINESS AND GIDDINESS [R42] 09/08/2004 SUBJECTIVE TINNITUS [H93.19] 09/08/2004 SWELLING IN HEAD AND NECK [R22.0, R22.1] 09/08/2004 Myelopathy of thoracic region [M47.14] 06/30/2016 Myelopathy (HCC) [G95.9] 07/05/2016 Nicotine use disorder, F17.2 [F17.200] 08/01/2021 Encounter Status:Closed by ROXANA DOWNING on 08/03/21 [facility] FREDYN Telephone (TOMN) ----- FREEDOM RODGERS ([id number]) 1960 M Date Time Provider Department 08/01/21 [facility]ZQUIERDO [facility] During your visit today, we recorded the following information about you: Yoko Izquierdo APRN.CNP 08/01/2021 9:53 AM Signed [facility] Center Inbound Phone Encounter DATE of SERVICE: 08/01/2021 TIME of SERVICE: 9:44 AM Status: Urgent Service/Provider: EP/EPS Roxana Arenas M.D. Reason for call: Chest pain/angina Contact information: Dr. Carreno Resolution: sent to inbox and transfer to [facility] main Comments: received a call from Dr. Carreno of [facility] ED. Reports patient started to have CP yesterday afternoon around 5pm. He went to bed but the chest pain woke him up in the middle of the night and went to the local ED. Reports no EKG changes but his troponin was elevated at 67. Repeat lab 3 hours later showed his troponin dropped to 64. Chest pain resolved and is now completely asymptomatic. He is scheduled to have a loop recorder placed tomorrow by Dr. Arenas. Discussed with EP continuous process tanner rotary drum Dr. Ramos. Advised to transfer to the [facility] for work up prior to elective procedure. [facility] transfer center number provided to Dr. Carreno's team. Yoko Izquierdo APRN.CNP Date of Resolution: 08/01/2021 Time of Resolution 9:44 AM Allergies As of Date: 08/01/2021 Noted Allergy Reaction IODINATED CONTRAST MEDIA 09/08/2004 4 - Hives Date Reviewed: 05/26/2021 Reviewed by: Connor Morton APRN.CNP - Fully Assessed Reason for Visit: Chest Pain [21] Prescriptions as of 08/01/2021 - metoprolol succinate ER (TOPROL XL) 25 mg 24 hr tablet Take 1 tablet by mouth twice daily. - losartan-hydroCHLOROthiaz renetta (HYZAAR) 100-25 mg per tablet Take 1 tablet by mouth once daily. Facility-Administered Medications as of 08/01/2021 - perflutren lipid microspheres 1.3 mL in NaCl (PF) 0.9% 10 mL injection (DEFINITY) - sodium chloride 0.9 % (flush) 10 mL (BD POSIFLUSH) Problem List As Of Date 08/01/2021 Noted Resolved DIZZINESS AND GIDDINESS [R42] 09/08/2004 SUBJECTIVE TINNITUS [H93.19] 09/08/2004 SWELLING IN HEAD AND NECK [R22.0, R22.1] 09/08/2004 Myelopathy of thoracic region [M47.14] 06/30/2016 Myelopathy (HCC) [G95.9] 07/05/2016 Nicotine use disorder, F17.2 [F17.200] 08/01/2021 Encounter Status:Closed by YOKO IZQUIERDO on 08/01/21 Normal [facility] CNCOon 07-20-2021 CNCO Letter Text Letter Text [facility] CNPNon 07-19-2021 CNPN Telephone (EPSMN) ----- ANA MARIAFREEDOM ([id number]) 1960 M Date Time Provider Department 07/19/21 ROXANA DOWNING [facility] During your visit today, we recorded the following information about you: Steff Small 07/19/2021 1:42 PM Signed ----- Message from Roxana Downing MD sent at 07/13/2021 3:07 PM EST ----- Patient: Freedom Rodgers Lab Procedure requested: Other Procedures Loop Implant CPT 52687 - [place] [facility] Anticoagulation Status: Not anticoagulated Requesting Physician: Roxana Downing MD Procedural Physician: Roxana Downing MD Date of last HANDP or Date of upcoming HANDP: see [facility] Indications for procedure: other palpitations, near syncope Procedure time frame: 1st Available Current Meds: Current Outpatient Medications: ? metoprolol succinate ER (TOPROL XL) 25 mg 24 hr tablet? losartan-hydroCHLOROthiaz renetta (HYZAAR) 100-25 mg per tablet Current Facility-Administered Medications: ? perflutren lipid microspheres 1.3 mL in NaCl (PF) 0.9% 10 mL injection (DEFINITY)? sodium chloride 0.9 % (flush) 10 mL (BD POSIFLUSH) input Section Potential Research Patient: No General anesthesia needed: No Moderate anesthesia needed: No Patient a candidate of same day discharge: Yes Mapping Ablation:None CT Scan needed pre-procedure: No ECHO needed pre-procedure:None Anticoagulation: N/A Stop Antiarrhythmic: No Stop Beta Renetta/ Calcium Channel Renetta: No ASA: N/A Additional instructions:None Roxana Downing MD July 13, 2021 3:07 PM ___ Steff Small 07/19/2021 1:43 PM Signed Left message for patient to call EP Scheduling office to schedule loop recorder implant. Awaiting return call from patient. Steff Small 07/19/2021 2:01 PM Signed Patient returned call. Patient offered and accepted procedure date of 08/02/[address] Downing. Patient will need pre op HANDP in prep room. Patient instructed to call EP scheduling office 07/29/21 for time and instructions, patient stated understanding. Steff Small Allergies As of Date: 07/19/2021 Noted Allergy Reaction IODINATED CONTRAST MEDIA 09/08/2004 4 - Hives Date Reviewed: 05/26/2021 Reviewed by: Connor Morton APRN.SALES MANAGER - Fully Assessed Reason for Visit: Future Appointment [256] Cmt: EP: Loop Recorder Implant Prescriptions as of 07/19/2021 - metoprolol succinate ER (TOPROL XL) 25 mg 24 hr tablet Take 1 tablet by mouth twice daily. - losartan-hydroCHLOROthiaz renetta (HYZAAR) 100-25 mg per tablet Take 1 tablet by mouth once daily. Facility-Administered Medications as of 07/19/2021 - perflutren lipid microspheres 1.3 mL in NaCl (PF) 0.9% 10 mL injection (DEFINITY) - sodium chloride 0.9 % (flush) 10 mL (BD POSIFLUSH) Problem List As Of Date 07/19/2021 Noted Resolved DIZZINESS AND GIDDINESS [R42] 09/08/2004 SUBJECTIVE TINNITUS [H93.19] 09/08/2004 SWELLING IN HEAD AND NECK [R22.0, R22.1] 09/08/2004 Myelopathy of thoracic region [M47.14] 06/30/2016 Myelopathy (HCC) [G95.9] 07/05/2016 Encounter Status:Closed by STEFF SMALL on 07/19/21 [facility] CNOVon 05-26-2021 CNOV Office Visit (CARDMN ) ----- FREEDOM RODGERS ([id number]) 1960 M Date Time Provider Department 05/26/21 1:00 PM CONNOR MORTON During your visit today, we recorded the following information about you: Pulse Blood pressure Weight Height 71/minute 118/68 79.4 kg 1.854 m Connor Morton APRN.CNP 05/26/2021 1:33 PM Signed [facility] [place] Melissa Medina Department of Cardiovascular Medicine SECTION OF CARDIAC PACING and ELECTROPHYSIOLOGY OUTPATIENT VISIT DATE May 26, 2021 OUTPATIENT VISIT TYPE ESTABLISHED PRIMARY CARE PHYSICIAN: Archie Hooks MD [address] [place] [address] REFERRING PHYSICIAN: Roxana Downing [address] [facility] [address] CHIEF COMPLAINT: F/u syncope s/p AVNRT ablation HISTORY OF PRESENT ILLNESS: Mr. Rodgers is a 60 year old male who presents today for follow-up visit s/p EPS with AVNRT ablation Pt of Dr Downing, newly est in office on 03/04/2021. PMH of syncope with head injury, HTN hx of alcohol abuse, WCT and family hx of SCD. He was thought to have syncope related to VT with hx of WCT in the past. He has normal EF and some septal hypertrophy. Cardiac MRI done 02/2021 showed mild septal wall thickness, but no infiltrative process. Stress test negative. He had EPS and noted AVNRT ablation on 03/30/21. Past week, some palpitations 1-2 minutes and some feelings in vision pixels which is how he has felt in the past. Occurs daily, random times of day. Can be sitting still. Several times a day. No syncope. Has had more energy. He denies abdominal distention, chest pain, shortness of breath, orthopnea, cough, edema, PND, lightheadedness or syncope. 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 - Hypertension - Wide-complex tachycardia (HCC) PAST SURGICAL HISTORY Procedure Laterality Date - PAST SURGICAL HISTORY OF kidney stones removed - PAST SURGICAL HISTORY OF heart catheterization - PAST SURGICAL HISTORY OF nerve graft to left wrist SOCIAL HISTORY Social History Tobacco Use - Smoking status: Current Every Day Smoker Packs/day: 0.50 Years: 15.00 Pack years: 7.50 Types: Cigarettes Start date: 03/30/1981 - Smokeless tobacco: Never Used Vaping Use - Vaping Use: Never used Substance Use Topics - Alcohol use: Yes Comment: 6 per week - Drug use: No FAMILY HISTORY Problem Relation Age of Onset - Heart Father at age 40 - Hypertension Father - Ischemic Heart Disease Father - Allergies Father - Ischemic Heart Disease Mother ALLERGIES: ALLERGIES Allergen Reactions - Iodinated Contrast * Hives MEDICATIONS: losartan-hydroCHLOROthiaz renetta (HYZAAR) 100-25 mg per tablet Take 1 tablet by mouth once daily. PHYSICAL EXAMINATION: BP 118/68 Pulse 71 Ht 185.4 cm (6' 1 ) Wt 79.4 kg (175 lb) BMI 23.09 kg/m? General: Well appearing, in no acute distress. Skin: No clubbing, no cyanosis. Eyes: Extra ocular movements intact Oropharynx: mask in place Neck: No jugular venous distention Lungs: Clear to auscultation bilaterally, no wheezing or rhonchi. Heart: Regular rhythm, PMI not displaced, S1, S2 normal Abdomen: Soft, nontender Extremities: No peripheral edema . Grade 2/4 distal pulses bilaterally. Neuro: Oriented to person, place and time, alert, cooperative, gait coordinated. CARDIOVASCULAR MEDICINE TESTING: Electrocardiogram: SR with PACs Last EKG Result Conclusion ECG COMPLETE Collected: 05/26/2021 12:13 PM (Preliminary result) Impression: SINUS RHYTHM WITH PREMATURE ATRIAL COMPLEXES OTHERWISE NORMAL ECG Complete Results Last MRI Result Conclusion MRI CARDIAC VELOCITY FLOW MAP Exam End: 03/25/2021 3:11 PM (Final result) Impression: IMPRESSION: 1. Normal left ventricle size (LVEDVi 59 mL/m2) and systolic function (LVEF 66%). Mildly increased septal wall thickness (measuring 1.4 - 1.5 cm). The papillary muscles are mildly thickened and multi-headed. There is no systolic anterior motion of the mitral valve. 2. There is subtle 'sand-like' enhancement in the basal lateral wall, which is felt to be related to blood pool within the fine trabeculations. Delayed-enhancement imaging otherwise reveals uniformly nulled myocardium, signifying that there has been no prior ischemic myocardial damage. There is also no definite evidence of interstitial fibrosis to suggest an infiltrative process. 3. Normal right ventricle size (RVEDVi 54 mL/m2) and systolic function (RVEF 55%). 4. No significant valvular abnormalities. Monument Stonecutter: PSCB Transcribe Date/Time: Mar 25 2021 3:28P Dictated by : ALLIE WOOD MD This examination was interpreted and the report reviewed and electronically signed by: DENG OCASIO MD on Mar 25 2021 5:06PM EST Complete R (more content not included)... Normal [facility] CNPNon 05-17-2021 [facility]CARDMN[facility] ----- ANA MARIAFREEDOM ([id number]) 1960 M Date Time Provider Department 05/17/21 ROXANA DOWNING During your visit today, we recorded the following information about you: June Schwartz [facility] 05/17/2021 3:05 PM Signed May 17, 2021 Patient Contact Number: [phone] (home) [phone] (cell) Patient last seen within the last year: Yes Reason For Call: Other Issue: Short term disability forms received for completion Scanned into [employer] for retrieval and completion Thank you. June [id number] Jonny Cameron RN 05/20/2021 3:46 PM Signed Completed form faxed, copy given to exhibit cleaner to upload. Jonny Cameron RN Allergies As of Date: 05/17/2021 Noted Allergy Reaction IODINATED CONTRAST MEDIA 09/08/2004 4 - Hives Date Reviewed: 03/31/2021 Reviewed by: Heidi Rueda RN - Fully Assessed Reason for Visit: Patient Update [1234] Cmt: Short term disability forms for completion Prescriptions as of 05/20/2021 - losartan-hydroCHLOROthiaz renetta (HYZAAR) 100-25 mg per tablet Take 1 tablet by mouth once daily. - iv contrast (radiology procedure) MRI TSP Inject, intravenously, once for 1 dose. No IV access, insert saline lock prior to the beginning of sedation, infusion, injection of imaging exam. Discontinue saline lock post exam. If Pt. has a central line or IVAD, may access for administration according to line specific nursing protocol. Once exam is complete flush line and de-access according to line specific nursing protocol in the MR contrast administration guidelines link. Facility-Administered Medications as of 05/20/2021 - perflutren lipid microspheres 1.3 mL in NaCl (PF) 0.9% 10 mL injection (DEFINITY) - sodium chloride 0.9 % (flush) 10 mL (BD POSIFLUSH) Problem List As Of Date 05/17/2021 Noted Resolved DIZZINESS AND GIDDINESS [R42] 09/08/2004 SUBJECTIVE TINNITUS [H93.19] 09/08/2004 SWELLING IN HEAD AND NECK [R22.0, R22.1] 09/08/2004 Myelopathy of thoracic region [M47.14] 06/30/2016 Myelopathy (HCC) [G95.9] 07/05/2016 Encounter Status:Closed by JONNY CAMERON RN [facility] Tele[facility] (CARDMN) ----- FREEDOM RODGERS ([id number]) 1960 M Date Time Provider Department 04/06/21 ROXANA DOWNING During your visit today, we recorded the following information about you: [facility] 04/06/2021 8:38 AM Signed April 06, 2021 8:37 AM Patient Name: Freedom Rodgers [id number] Contact Information: [phone] (home) [phone] (cell) Last visit with EP Provider: 03/04/2021 Reason for Call: Patient needs return to work letter - same put into patient's My Chart for easy access. Physician: Roxana Downing MD Thank you, [facility] The patient was informed that our caregivers are afforded 72 business hours to review and respond telephone messages. Jonny Cameron RN 04/30/2021 1:11 PM Signed Completed temporary disability form, copy given to exhibit cleaner to send and upload. Jonny Cameron RN Allergies As of Date: 04/06/2021 Noted Allergy Reaction IODINATED CONTRAST MEDIA 09/08/2004 4 - Hives Date Reviewed: 03/31/2021 Reviewed by: Heidi Rueda RN - Fully Assessed Reason for Visit: Return To Work Letter [2009] Prescriptions as of 04/30/2021 - losartan-hydroCHLOROthiaz renetta (HYZAAR) 100-25 mg per tablet Take 1 tablet by mouth once daily. - iv contrast (radiology procedure) MRI TSP Inject, intravenously, once for 1 dose. No IV access, insert saline lock prior to the beginning of sedation, infusion, injection of imaging exam. Discontinue saline lock post exam. If Pt. has a central line or IVAD, may access for administration according to line specific nursing protocol. Once exam is complete flush line and de-access according to line specific nursing protocol in the MR contrast administration guidelines link. Facility-Administered Medications as of 04/30/2021 - perflutren lipid microspheres 1.3 mL in NaCl (PF) 0.9% 10 mL injection (DEFINITY) - sodium chloride 0.9 % (flush) 10 mL (BD POSIFLUSH) Problem List As Of Date 04/06/2021 Noted Resolved DIZZINESS AND GIDDINESS [R42] 09/08/2004 SUBJECTIVE TINNITUS [H93.19] 09/08/2004 SWELLING IN HEAD AND NECK [R22.0, R22.1] 09/08/2004 Myelopathy of thoracic region [M47.14] 06/30/2016 Myelopathy (HCC) [G95.9] 07/05/2016 Letter Text Encounter Status:Closed by KYLE DAY on 04/06/21 [facility] ANES Eleanor 03-30-2021 ANES POST HNO ID: [id number] Author: Jeff Sanon MD Service: Anesthesiology Author Type: Anesthesiologist Type: Anesthesia PostOp Filed: 03/30/2021 3:45 PM Note Text: POST ANESTHESIA EVALUATION NOTE SERVICE DATE: 03/30/2021 SERVICE TIME: 15:05 : 1960 Vitals: 03/30/21 1426 Temp: 36 ?C (96.8 ?F) 03/30/21 1430 03/30/21 1445 03/30/21 1500 03/30/21 1515 BP: 97/54 93/51 101/55 109/59 03/30/21 1430 03/30/21 1445 03/30/21 1500 03/30/21 1515 Pulse: 64 64 61 62 03/30/21 1430 03/30/21 1445 03/30/21 1500 03/30/21 1515 Resp: 19 18 23 20 03/30/21 1430 03/30/21 1445 03/30/21 1500 03/30/21 1515 SpO2: 98% 97% 99% 98% Validated Vital Signs: HR: 61; BP: 98/51; RR: 16; SpO2%: 98%; Temperature: 36.3 POST ANES STATUS: No apparent anesthetic complications. The patient is appropriately hydrated with stable respiratory and cardiovascular status. Patient has safe and adequate airway control. The patient has appropriate pain relief and no significant post operative nausea or vomiting. The patient has achieved baseline mental status. Intra-Operative Events: No Significant Anesthesia Events Further assessment by Anesthesia Service: None Other Remarks: SIGNATURE: Jeff Sanon MD PATIENT NAME: Freedom Rodgers DATE: March 30, 2021 TIME: 3:43 PM PAGER/CONTACT #: [phone] Normal [facility] Basic Metabolic Panlon 03-30 Anion gap [Moles/Vol] 9 mmol/L Normal 9-18 [facility] Comment on above: Performed By: #### C YASMINE, BMP ####[facility], [place] [phone] Calcium [Mass/Vol] 9.3 mg/dL Normal 8.5-10.2 [facility] Comment on above: Performed By: #### C YASMINE, BMP ####[facility] [address], [place] [phone] Chloride [Moles/Vol] 104 mmol/L Normal 97-[address] [facility] Comment on above: Performed By: #### C YASMINE, BMP ####[facility] [address] [place], [place] [phone] CO2 [Moles/Vol] 26 mmol/L Normal 22-30 [facility] Comment on above: Performed By: #### C BC, BMP ####[facility], [place] [phone] Creatinine [Mass/Vol] 0.83 mg/dL Normal 0.73-1.22 [facility] Comment on above: Performed By: #### C YASMINE, BMP ####[facility] [address] [place], [place] [phone] eGFR- Amer. >60 Normal [facility] Comment on above: Performed By: #### C YASMINE, BMP ####[facility] [place], [place] [phone] eGFR-All Other Races >[address] [facility] Comment on above: Result Comment: eGFR (Estimated GFR) Units of measure: mL/min/1.73 meters squared eGFR is derived from the reexpressed MDRD Study equation using the following parameters: serum creatinine, age, gender and race. The creatinine assay has been calibrated to be traceable to IDMS. An eGFR <60 mL/min/1.73m2 for >3 months is consistent with chronic kidney disease. Refer to KDOQI guidelines for clinical interpretation. In patients with unstable renal function, e.g. those with acute kidney injury, the eGFR may not accurately reflect actual GFR. Performed By: #### C YASMINE, BMP ####[facility] [place], [place] [phone] Glucose [Mass/Vol] 109 mg/dL High 74-99 [facility] Comment on above: Result Comment: The [place] Diabetes Association (ADA) provides guidance for cutoff values for fasting glucose and random glucose. The ADA defines fasting as no caloric intake for at least 8 hours. Fasting plasma glucose results between 100 to 125 mg/dL indicate increased risk for diabetes (prediabetes). Fasting plasma glucose results greater than or equal to 126 mg/dL meet the criteria for diagnosis of diabetes. In the absence of unequivocal hyperglycemia, results should be confirmed by repeat testing. In a patient with classic symptoms of hyperglycemia or hyperglycemic crisis, random plasma glucose results greater than or equal to 200 mg/dL meet the criteria for diagnosis of diabetes. Reference: Standards of Medical Care in Diabetes 2016, [place] Diabetes Association. Diabetes Care. 2016.39(Suppl 1). Performed By: #### C YASMINE, BMP ####[facility] [place], [place] [phone] Potassium [Moles/Vol] 3.8 mmol/L Normal 3.7-5.1 [facility] Comment on above: Performed By: #### C BC, BMP ####[place] [address], [place] [phone] Sodium [Moles/Vol] 139 mmol/L Normal 136-144 [facility] Comment on above: Performed By: #### C BC, BMP ####[place] [address], [place] [phone] Urea nitrogen [Mass/Vol] 18 mg/dL Normal 9-24 [facility] Comment on above: Performed By: #### C YASMINE, BMP ####[place] [address], [place] [phone] CBCon 03-30-2021 Absolute nRBC <0.01 Normal <0.01 [facility] Comment on above: Performed By: #### C YASMINE, BMP ####[place] [address], [place] [phone] Erythrocyte distribution width (RBC) [Ratio] 11.2 % Low 11.5-15.0 [facility] Comment on above: Performed By: #### C BC, BMP ####[place] [address], [place] [phone] Hematocrit (Bld) [Volume fraction] 37.6 % Low 39.0-51.0 [facility] Comment on above: Performed By: #### C BC, BMP ####[place] [address], [place] [phone] Hemoglobin (Bld) [Mass/Vol] 13.6 g/dL Normal 13.0-17.0 [facility] Comment on above: Performed By: #### C BC, BMP ####[place] [address], [place] [phone] MCH 34.5 pG High 26.0-34.0 [facility] Comment on above: Performed By: #### C BC, BMP ####[facility], [place] [phone] MCHC (RBC) [Mass/Vol] 36.2 g/dL High 30.5-36.0 [facility] Comment on above: Performed By: #### C BC, BMP ####[facility], [place] [phone] MCV (RBC) [Entitic vol] 95.4 fL Normal 80.0-100.0 [facility] Comment on above: Performed By: #### C BC, BMP ####[place] [address], [place] [phone] Platelet mean volume (Bld) [Entitic vol] 10.7 fL Normal 9.0-12.7 [facility] Comment on above: Performed By: #### C BC, BMP ####[facility] [place], [place] [phone] Platelets (Bld) [#/Vol] 160 10*3/uL Normal 150-400 [facility] Comment on above: Performed By: #### C BC, BMP ####[facility] [place], [place] [phone] RBC (Bld) [#/Vol] 3.94 10*6/uL Low 4.20-6.00 [facility] Comment on above: Performed By: #### C BC, BMP ####[facility] [place], [place] [phone] WBC (Bld) [#/Vol] 4.71 10*3/uL Normal 3.70-11.00 [facility] Comment on above: Performed By: #### C BC, BMP ####[facility], [place] [phone] Confirm Blood Typeon 021 ABO/RH(D) Positive Normal [facility] Comment on above: Performed By: #### C ONABO #### [facility] [address] [place], [place] [address] Performed By: #### T SCR #### [facility] [address] [place], [place] [address] NURSING PROGon 03-30-2021 NURSING PROG HNO ID: [id number] Author: Adriano Olivas RN Service: ? Author Type: Registered Nurse Type: Nursing Progress Note Filed: 03/30/2021 7:53 PM Note Text: Nursing Progress Note [facility] Patient transferred into room/unit J82-04 via bed in stable condition.Actions taken: Patient oriented to room, unit, and call light system. Reviewed bedrest protocol with patient. Skin assessment completed with Jerrica PENNINGTON. All pressure points free from pressure injuries. Will continue to monitor and update LIP if changes occur. This note was completed by: Adriano Olivas Normal [facility] HOSPon 03-29-2021 HOSP Patient:Gustavo Rodgers MRN: Height:6' 1 (1.854 m) Weight:180 lb (81.647 kg) Outpatient Medications as of 03/30/21: losartan-hydroCHLOROthiaz renetta (HYZAAR) 100-25 mg per tablet verapamil SR (CALAN SR, ISOPTIN SR) 240 mg CR tablet iv contrast (radiology procedure) Admission/Clinic Administered Medications as of 03/30/21: Patient has no admission medications. 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] Myelopathy (HCC) [G95.9] Allergies: Iodinated Contrast Media Date Verified: 03/25/21 Lab Values Lab Value Units Date High Low POTA* 3.8 mmol/L 03/30/2021 5.1 3.7 CODY* 37.6 % 03/30/2021 51.0 39.0 Progress Notes (CARD EPS LAB MAIN): Steff Small 03/29/2021 1:13 PM Signed THE FOLLOWING WAS EVALUATED Motivation To Learn: Interested Family/Significant Other Support: Unable to assess - Family not present Cognitive Ability: Alert and oriented Patient Learns Best By: Individual Instruction The Following Influencing Factors Were Barriers To This Education Session: None The Following Physical Limitations Were Barriers To This Education Session: None Instruction Provided To: Patient Procedure: Electrophysiology Study Radio Frequency Ablation Pre-procedure information reviewed: Patient ID verified Procedure verified Physician verified Explanation of procedure Sedation level during procedure MD medication instructions from EP lab request Stop Beta Renetta/ Calcium Channel Renetta: Yes verapamil (Covera-HS, Verelan PM, Calan) 2 days prior to procedure Travel instructions/restrictions Scheduling information Possible same day discharge versus overnight hospital stay Check out time Family waiting area Physician contact with family after procedure Post Procedure Expectations reviewed: Inpatient hospital stay Post procedure antiarrhythmics and anticoagulation will be discussed with Physician, nurse practitioner or Physician vector control assistant upon discharge Instructions for transmitting EKG to Monitoring Center 3 month follow up instructions Contact number for information and questions Patient Evaluation: Verbalizes understanding Follow Up Plan: Follow up as directed by . Supplemental Material Given: Written Material Patient education regarding radiation exposure. Instructed By Steff Small. In Department of CARDIOLOGY. Progress Notes (CARD EPS LAB MAIN): Alta Barahona RN 03/26/2021 5:26 PM Signed ----- Message from Roxana Downing MD sent at 03/25/2021 6:20 PM EDT ----- Patient: Freedom Rodgers EP Lab Procedure requested: Ablations VT Ablation CPT 36316 Anticoagulation Status: Not anticoagulated Requesting Physician: Roxana Downing MD Procedural Physician: Roxana Downing MD Date of last HANDP or Date of upcoming HANDP: See epic Indications for procedure: VT Procedure time frame: 1st Available Current Meds: Current Outpatient Medications: ? ALPRAZolam (XANAX) 0.5 mg tablet? losartan-hydroCHLOROthiaz renetta (HYZAAR) 100-25 mg per tablet? verapamil SR (CALAN SR, ISOPTIN SR) 240 mg CR tablet? iv contrast (radiology procedure) Current Facility-Administered Medications: ? perflutren lipid microspheres 1.3 mL in NaCl (PF) 0.9% 10 mL injection (DEFINITY)? sodium chloride 0.9 % (flush) 10 mL (BD POSIFLUSH) input Section Potential Research Patient: Yes General anesthesia needed: No Moderate anesthesia needed: Yes Patient a candidate of same day discharge: Yes Mapping Ablation:Biosense Rodas (CARTO) CT Scan needed pre-procedure: No ECHO needed pre-procedure:None Anticoagulation: N/A Stop Antiarrhythmic: No Stop Beta Renetta/ Calcium Channel Renetta: Yes verapamil (Covera-HS, Verelan PM, Calan) 2 days prior to procedure ASA: N/A Additional instructions: High priority - if something cancels, or can add earlier Roxana Downing MD March 25, 2021 6:20 PM ___ Alta Barahona RN 03/26/2021 5:27 PM Signed Due to a cancellation, was able to offer the the date of 03-30-21 with . Date accepted. Medication instructions given, as indicated below. Stated understanding. Normal [facility] PreOp/PreProc COVIDon 2020 SARS-CoV-2 (COVID-19) RNA RODOLFO+probe Ql (Unsp spec) UPPER RESPIRATORY TRACT SWAB Normal [facility] Comment on above: Performed By: #### P OCOVD ####[facility] [id number] [place] [address] [phone] SARS-CoV-2 (COVID-19) RNA RODOLFO+probe Ql (Unsp spec) Negative for COVID19 (SARS CoV2) by RT-PCR or equivalent method. Normal Negative for COVID19 (SARS CoV2) by RT-PCR or equivalent method. [facility] Comment on above: Result Comment: This test was developed and its performance characteristics determined by [facility] [place]. This test has been authorized by FDA under an Emergency Use Authorization (EUA). This test has been validated in accordance with the FDA's Guidance Document Policy for Diagnostics Testing in Laboratories Certified to Perform High Complexity Testing under CLIA prior to Emergency use Authorization for Coronavirus Disease 2019 during the Public Health Emergency issued on September 28, 2019. Test performed by [facility] [place] [facility], [facility] [place], [address] [address]. Performed By: #### P OCOVD ####[facility] [id number] [place], [place] [address] [place], [place] [phone] Kannan 03-26-2021 CNPN Telephone (EPSMN) ----- FREEDOM RODGERS ([id number]) 1960 M Date Time Provider Department 03/26/21 ROXANA DOWNING [facility] During your visit today, we recorded the following information about you: Alta Barahona RN 03/26/2021 5:26 PM Signed ----- Message from Roxana Downing MD sent at 03/25/2021 6:20 PM EDT ----- Patient: Freedom Rodgers EP Lab Procedure requested: Ablations VT Ablation CPT 00132 Anticoagulation Status: Not anticoagulated Requesting Physician: Roxana Downing MD Procedural Physician: Roxana Downing MD Date of last HANDP or Date of upcoming HANDP: See epic Indications for procedure: VT Procedure time frame: 1st Available Current Meds: Current Outpatient Medications: ? ALPRAZolam (XANAX) 0.5 mg tablet? losartan-hydroCHLOROthiaz renetta (HYZAAR) 100-25 mg per tablet? verapamil SR (CALAN SR, ISOPTIN SR) 240 mg CR tablet? iv contrast (radiology procedure) Current Facility-Administered Medications: ? perflutren lipid microspheres 1.3 mL in NaCl (PF) 0.9% 10 mL injection (DEFINITY)? sodium chloride 0.9 % (flush) 10 mL (BD POSIFLUSH) MD input Section Potential Research Patient: Yes General anesthesia needed: No Moderate anesthesia needed: Yes Patient a candidate of same day discharge: Yes Mapping Ablation:Biosense Rodas (CARTO) CT Scan needed pre-procedure: No ECHO needed pre-procedure:None Anticoagulation: N/A Stop Antiarrhythmic: No Stop Beta Renetta/ Calcium Channel Renetta: Yes verapamil (Covera-HS, Verelan PM, Calan) 2 days prior to procedure ASA: N/A Additional instructions: High priority - if something cancels, or can add earlier Roxana Downing MD March 25, 2021 6:20 PM ___ Alta Barahona RN 03/26/2021 5:27 PM Signed Due to a cancellation, was able to offer the the date of 03-30-21 with . Date accepted. Medication instructions given, as indicated below. Stated understanding. Allergies As of Date: 03/26/2021 Noted Allergy Reaction IODINATED CONTRAST MEDIA 09/08/2004 4 - Hives Date Reviewed: 03/25/2021 Reviewed by: Iggy Escobedo RN - Fully Assessed Reason for Visit: Schedule Surgery [1330] Cmt: VT ablation Prescriptions as of 03/26/2021 - losartan-hydroCHLOROthiaz renetta (HYZAAR) 100-25 mg per tablet Take 1 tablet by mouth once daily. - verapamil SR (CALAN SR, ISOPTIN SR) 240 mg CR tablet Take 240 mg by mouth daily at bedtime. - iv contrast (radiology procedure) MRI TSP Inject, intravenously, once for 1 dose. No IV access, insert saline lock prior to the beginning of sedation, infusion, injection of imaging exam. Discontinue saline lock post exam. If Pt. has a central line or IVAD, may access for administration according to line specific nursing protocol. Once exam is complete flush line and de-access according to line specific nursing protocol in the MR contrast administration guidelines link. 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 I recommend EPS and ablation. I advised that he come to the ER if Sx worsen in the interim. Roxana Downing MD Allergies As of Date: 03/25/2021 Noted Allergy Reaction IODINATED CONTRAST MEDIA 09/08/2004 4 - Hives Date Reviewed: 03/25/2021 Reviewed by: Iggy Escobedo RN - Fully Assessed Reason for Visit: Results [95] Prescriptions as of 03/25/2021 - ALPRAZolam (XANAX) 0.5 mg tablet Take 2 tablets by mouth one time only for 1 dose. - losartan-hydroCHLOROthiaz renetta (HYZAAR) 100-25 mg per tablet Take 1 tablet by mouth once daily. - verapamil SR (CALAN SR, ISOPTIN SR) 240 mg CR tablet Take 240 mg by mouth daily at bedtime. - iv contrast (radiology procedure) MRI TSP Inject, intravenously, once for 1 dose. No IV access, insert saline lock prior to the beginning of sedation, infusion, injection of imaging exam. Discontinue saline lock post exam. If Pt. has a central line or IVAD, may access for administration according to line specific nursing protocol. Once exam is complete flush line and de-access according to line specific nursing protocol in the MR contrast administration guidelines link. 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 Indication: This study is performed to assess for myocardial viability and damage, as well as to quantitate left ventricular and valvular function. Technique: Nalini Ingenia 3.0 Saskia MRI scanner. * Turbo spin echo and gradient echo imaging for anatomic definition. * Dynamic cine imaging (SSFP) for cardiac chamber, wall-motion, and valvular analysis. * T2-STIR edema-weighted imaging. * Flow quantification sequences for hemodynamics. * Delayed gadolinium-enhancement analysis after injection of gadolinium-chelate (8 cc of Gadavist). Potential study limitations: None RESULT: The chest wall and mediastinum appear normal. No significant adenopathy is identified. This study was not optimized to assess the lungs however, limited imaging reveals no gross abnormalities. The pericardium is unremarkable. The pulmonary arteries appear normal (main PA: 2.2 cm). The thoracic aorta appears normal in course, caliber, and contour. There is no acute aortic pathology. The arch vessel branching pattern is normal. All of the arch branch vessels appear patent in their proximal portions. CARDIAC CHAMBERS: The cardiac chambers demonstrate normal atrioventricular and ventriculoarterial concordance, as well as normal systemic and pulmonary venous return. The cardiac chamber sizes are normal. Left ventricle: The left ventricle is normal in size and shape, and has normal function. No regional wall motion abnormalities. Mildly increased septal wall thickness (measuring 1.4 - 1.5 cm). The papillary muscles are mildly thickened and multi-headed. Quantitative left ventricular functional values are as follows: EDV = 122 cc (normal 115-198 cc); EDVi = 59 cc/m2 (normal 63-98 cc/m2). ESV = 42 cc (normal 30-75 cc); ESVi = 20 cc/m2 (normal 16-38 cc/m2). Stroke volume = 80 cc (normal 76-132 cc); SVi = 39 cc/m2 (normal 41-65 cc/m2). LVEF = 66 % (normal 55-75%). Cardiac Output = 6.3 l/min.; Cardiac Index = 3.1 l/min/m2. LV mass = 120 gm (normal 108-184 gm); LVMi = 58 gm/m2 (normal 58-91 gm/m2). There is no increased myocardial signal intensity on T2-STIR imaging to suggest myocardial edema/inflammation. There is subtle 'sand-like' enhancement in the basal lateral wall, which is felt to be related to blood pool due to fine trabeculations. Delayed-enhancement imaging otherwise reveals uniformly nulled myocardium, signifying that there has been no prior ischemic myocardial damage. There is also no definite evidence of interstitial fibrosis to suggest an infiltrative process. Right ventricle: The right ventricle is normal in size and shape, and has normal function. Quantitative right ventricular functional values are as follows: EDV = 111 cc (normal 113-213 cc); EDVi = 54 cc/m2 (normal 60-106 cc/m2). ESV = 50 cc (normal 27-86 cc); ESVi = 25 cc/m2 (normal 14-43 cc/m2). Stroke volume = 61 cc (normal 72-140 cc); SVi = 30 cc/m2 (normal 38-70 cc/m2). RVEF = 55 % (normal 53-78%). VALVES: The aortic valve is unrestricted. There is no aortic regurgitation. Flow quantification through the ascending aorta: Forward volume: 68 cc/beat Reverse volume: 0 cc/beat Net forward volume: 68 cc/beat Aortic regurgitant fraction: 0% The anterior mitral valve leaflet appears mildly thickened. There is trace visualized mitral regurgitation. No systolic anterior motion of the mitral valve is noted. The tricuspid valve is structurally unremarkable. There is trivial tricuspid regurgitation. Limited imaging through the upper abdomen reveals a small cystic-appearing lesion in the right hepatic lobe. . IMPRESSION: 1. Normal left ventricle size (LVEDVi 59 mL/m2) and systolic function (LVEF 66%). Mildly increased septal wall thickness (measuring 1.4 - 1.5 cm). The papillary muscles are mildly thickened and multi-headed. There is no systolic anterior motion of the mitral valve. 2. There is subtle 'sand-like' enhancement in the basal lateral wall, which is felt to be related to blood pool within the fine trabeculations. Delayed-enhancement imaging otherwise reveals uniformly nulled myocardium, signifying that there has been no prior ischemic myocardial damage. There is also no definite evidence of interstitial fibrosis to suggest an infiltrative process. 3. Normal right ventricle size (RVEDVi 54 mL/m2) and systolic function (RVEF 55%). 4. No significant valvular abnormalities. Monument Stonecutter: ANITHA Transcribe Date/Time: Mar 25 2021 3:28P Dictated by : ALLIE WOOD MD This examination was interpreted and the report reviewed an (more content not included)... Normal [facility] MRI CARDIAC VELOCITY FLOW MANUELA Bonilla 03-25-2021 MRI CARDIAC VELOCITY FLOW MAP * * *Final Report* * * DATE OF EXAM: Mar 25 2021 3:11PM CITLALI [id number] - MRI CARDIAC VELOCITY FLOW MAP / PROCEDURE REASON: multiple diagnoses * * * * Physician Interpretation * * * * Cardiovascular MRI: 03/25/2021 3:11 PM Comparison: None Clinical History: 60 year old male with syncope, NSVT and a family history of SCD here for further evaluation. Indication: This study is performed to assess for myocardial viability and damage, as well as to quantitate left ventricular and valvular function. Technique: Nalini Cognotionia 3.0 Saskia MRI scanner. * Turbo spin echo and gradient echo imaging for anatomic definition. * Dynamic cine imaging (SSFP) for cardiac chamber, wall-motion, and valvular analysis. * T2-STIR edema-weighted imaging. * Flow quantification sequences for hemodynamics. * Delayed gadolinium-enhancement analysis after injection of gadolinium-chelate (8 cc of Gadavist). Potential study limitations: None RESULT: The chest wall and mediastinum appear normal. No significant adenopathy is identified. This study was not optimized to assess the lungs however, limited imaging reveals no gross abnormalities. The pericardium is unremarkable. The pulmonary arteries appear normal (main PA: 2.2 cm). The thoracic aorta appears normal in course, caliber, and contour. There is no acute aortic pathology. The arch vessel branching pattern is normal. All of the arch branch vessels appear patent in their proximal portions. CARDIAC CHAMBERS: The cardiac chambers demonstrate normal atrioventricular and ventriculoarterial concordance, as well as normal systemic and pulmonary venous return. The cardiac chamber sizes are normal. Left ventricle: The left ventricle is normal in size and shape, and has normal function. No regional wall motion abnormalities. Mildly increased septal wall thickness (measuring 1.4 - 1.5 cm). The papillary muscles are mildly thickened and multi-headed. Quantitative left ventricular functional values are as follows: EDV = 122 cc (normal 115-198 cc); EDVi = 59 cc/m2 (normal 63-98 cc/m2). ESV = 42 cc (normal 30-75 cc); ESVi = 20 cc/m2 (normal 16-38 cc/m2). Stroke volume = 80 cc (normal 76-132 cc); SVi = 39 cc/m2 (normal 41-65 cc/m2). LVEF = 66 % (normal 55-75%). Cardiac Output = 6.3 l/min.; Cardiac Index = 3.1 l/min/m2. LV mass = 120 gm (normal 108-184 gm); LVMi = 58 gm/m2 (normal 58-91 gm/m2). There is no increased myocardial signal intensity on T2-STIR imaging to suggest myocardial edema/inflammation. There is subtle 'sand-like' enhancement in the basal lateral wall, which is felt to be related to blood pool due to fine trabeculations. Delayed-enhancement imaging otherwise reveals uniformly nulled myocardium, signifying that there has been no prior ischemic myocardial damage. There is also no definite evidence of interstitial fibrosis to suggest an infiltrative process. Right ventricle: The right ventricle is normal in size and shape, and has normal function. Quantitative right ventricular functional values are as follows: EDV = 111 cc (normal 113-213 cc); EDVi = 54 cc/m2 (normal 60-106 cc/m2). ESV = 50 cc (normal 27-86 cc); ESVi = 25 cc/m2 (normal 14-43 cc/m2). Stroke volume = 61 cc (normal 72-140 cc); SVi = 30 cc/m2 (normal 38-70 cc/m2). RVEF = 55 % (normal 53-78%). VALVES: The aortic valve is unrestricted. There is no aortic regurgitation. Flow quantification through the ascending aorta: Forward volume: 68 cc/beat Reverse volume: 0 cc/beat Net forward volume: 68 cc/beat Aortic regurgitant fraction: 0% The anterior mitral valve leaflet appears mildly thickened. There is trace visualized mitral regurgitation. No systolic anterior motion of the mitral valve is noted. The tricuspid valve is structurally unremarkable. There is trivial tricuspid regurgitation. Limited imaging through the upper abdomen reveals a small cystic-appearing lesion in the right hepatic lobe. . IMPRESSION: 1. Normal left ventricle size (LVEDVi 59 mL/m2) and systolic function (LVEF 66%). Mildly increased septal wall thickness (measuring 1.4 - 1.5 cm). The papillary muscles are mildly thickened and multi-headed. There is no systolic anterior motion of the mitral valve. 2. There is subtle 'sand-like' enhancement in the basal lateral wall, which is felt to be related to blood pool within the fine trabeculations. Delayed-enhancement imaging otherwise reveals uniformly nulled myocardium, signifying that there has been no prior ischemic myocardial damage. There is also no definite evidence of interstitial fibrosis to suggest an infiltrative process. 3. Normal right ventricle size (RVEDVi 54 mL/m2) and systolic function (RVEF 55%). 4. No significant valvular abnormalities. Monument Stonecutter: ANITHA Transcribe Date/Time: Mar 25 2021 3:28P Dictated by : ALLIE WOOD MD This examination was interpreted and the report reviewed and (more content not included)... Normal [facility] CNPNon 03-24-2021 CNPN Telephone (CARDMN) ----- ANA MARIAFREEDOM Bauman ([id number]) 1960 M Date Time Provider Department 03/24/21 ROXANA DOWNING During your visit today, we recorded the following information about you: Kyle Inova [facility] 03/24/2021 8:25 AM Signed Printed and gave to MD for review - [facility] Janette Stevens RN 03/24/2021 5:29 PM Signed Reviewed with Dr. Downing. Patient is scheduled for MRI tomorrow. Luke [place] Allergies As of Date: 03/24/2021 Noted Allergy Reaction IODINATED CONTRAST MEDIA 09/08/2004 4 - Hives Date Reviewed: 03/04/2021 Reviewed by: Roxana Downing MD - Fully Assessed Reason for Visit: Results [95] Prescriptions as of 03/24/2021 - losartan-hydroCHLOROthiaz renetta (HYZAAR) 100-25 mg per tablet Take 1 tablet by mouth once daily. - verapamil SR (CALAN SR, ISOPTIN SR) 240 mg CR tablet Take 240 mg by mouth daily at bedtime. - iv contrast (radiology procedure) MRI TSP Inject, intravenously, once for 1 dose. No IV access, insert saline lock prior to the beginning of sedation, infusion, injection of imaging exam. Discontinue saline lock post exam. If Pt. has a central line or IVAD, may access for administration according to line specific nursing protocol. Once exam is complete flush line and de-access according to line specific nursing protocol in the MR contrast administration guidelines link. Facility-Administered Medications as of 03/24/2021 - perflutren lipid microspheres 1.3 mL in NaCl (PF) 0.9% 10 mL injection (DEFINITY) - sodium chloride 0.9 % (flush) 10 mL (BD POSIFLUSH) Problem List As Of Date 03/24/2021 Noted Resolved DIZZINESS AND GIDDINESS [R42] 09/08/2004 SUBJECTIVE TINNITUS [H93.19] 09/08/2004 SWELLING IN HEAD AND NECK [R22.0, R22.1] 09/08/2004 Myelopathy of thoracic region [M47.14] 06/30/2016 Myelopathy (HCC) [G95.9] 07/05/2016 Encounter Status:Closed by JANTETE STEVENS on 03/24/21 [facility] 03-19-2021 CNPN Telephone (CARDMN) ----- FREEDOM RODGERS ([id number]) 1960 M Date Time Provider Department 03/19/21 ROXANA DOWNING During your visit today, we recorded the following information about you: June Schwartz [facility] 03/19/2021 3:39 PM Signed Records Scanned into [employer] Allergies As of Date: 03/19/2021 Noted Allergy Reaction IODINATED CONTRAST MEDIA 09/08/2004 4 - Hives Date Reviewed: 03/04/2021 Reviewed by: Roxana Downing MD - Fully Assessed Reason for Visit: Received Outside Medical Records [[id number]] Cmt: Introduction letter from referring phys Prescriptions as of 03/19/2021 - losartan-hydroCHLOROthiaz renetta (HYZAAR) 100-25 mg per tablet Take 1 tablet by mouth once daily. - verapamil SR (CALAN SR, ISOPTIN SR) 240 mg CR tablet Take 240 mg by mouth daily at bedtime. - iv contrast (radiology procedure) MRI TSP Inject, intravenously, once for 1 dose. No IV access, insert saline lock prior to the beginning of sedation, infusion, injection of imaging exam. Discontinue saline lock post exam. If Pt. has a central line or IVAD, may access for administration according to line specific nursing protocol. Once exam is complete flush line and de-access according to line specific nursing protocol in the MR contrast administration guidelines link. Facility-Administered Medications as of 03/19/2021 - perflutren lipid microspheres 1.3 mL in NaCl (PF) 0.9% 10 mL injection (DEFINITY) - sodium chloride 0.9 % (flush) 10 mL (BD POSIFLUSH) Problem List As Of Date 03/19/2021 Noted Resolved DIZZINESS AND GIDDINESS [R42] 09/08/2004 SUBJECTIVE TINNITUS [H93.19] 09/08/2004 SWELLING IN HEAD AND NECK [R22.0, R22.1] 09/08/2004 Myelopathy of thoracic region [M47.14] 06/30/2016 Myelopathy (HCC) [G95.9] 07/05/2016 Encounter Status:Closed by JUNE MARTINEZ on 03/19/21 [facility] 03-05-2021 JOSEPH Telephone (BEE) ----- FREEDOM RODGERS ([id number]) 1960 M Date Time Provider Department 03/05/21 ROXANA DOWNING During your visit today, we recorded the following information about you: Kyle Parsons [facility] 03/05/2021 3:52 PM Signed Received outside records - Saved to Outside Record Appointment on Visit date not found Last appointment with this provider 03/04/2021 Last OV in this dept 03/04/2021 Kyle Parsons [facility] X [phone] Allergies As of Date: 03/05/2021 Noted Allergy Reaction IODINATED CONTRAST MEDIA 09/08/2004 4 - Hives Date Reviewed: 03/04/2021 Reviewed by: Roxana Downing MD - Fully Assessed Reason for Visit: Received Outside Medical Records [[id number]] Prescriptions as of 03/05/2021 - losartan-hydroCHLOROthiaz renetta (HYZAAR) 100-25 mg per tablet Take 1 tablet by mouth once daily. - verapamil SR (CALAN SR, ISOPTIN SR) 240 mg CR tablet Take 240 mg by mouth daily at bedtime. - iv contrast (will be provided with radiology test) MRI Cardiac w/Qflow Inject, intravenously, once for 1 dose. No IV access, insert saline lock prior to the beginning of sedation, infusion, injection of imaging exam. Discontinue saline lock post exam. If Pt has a central line or IVAD, may access for administration according to line specific nursing protocol. Once exam is complete flush line and de-access according to line specific nursing protocol in the MR contrast administration guidelines link - iv contrast (radiology procedure) MRI TSP Inject, intravenously, once for 1 dose. No IV access, insert saline lock prior to the beginning of sedation, infusion, injection of imaging exam. Discontinue saline lock post exam. If Pt. has a central line or IVAD, may access for administration according to line specific nursing protocol. Once exam is complete flush line and de-access according to line specific nursing protocol in the MR contrast administration guidelines link. Facility-Administered Medications as of 03/05/2021 - perflutren lipid microspheres 1.3 mL in NaCl (PF) 0.9% 10 mL injection (DEFINITY) - sodium chloride 0.9 % (flush) 10 mL (BD POSIFLUSH) Problem List As Of Date 03/05/2021 Noted Resolved DIZZINESS AND GIDDINESS [R42] 09/08/2004 SUBJECTIVE TINNITUS [H93.19] 09/08/2004 SWELLING IN HEAD AND NECK [R22.0, R22.1] 09/08/2004 Myelopathy of thoracic region [M47.14] 06/30/2016 Myelopathy (HCC) [G95.9] 07/05/2016 Encounter Status:Closed by MIQUEL KENRICKRELLKYLE on 03/05/21 [facility]OVon 03-04-2021 CNOV Office Visit (CARDMN ) ----- FREEDOM RODGERS ([id number]) 1960 M Date Time Provider Department 03/04/21 7:45 AM ROXANA DOWNING During your visit today, we recorded the following information about you: Pulse Blood pressure Weight Height 76/minute 122/90 83.9 kg 1.829 m Roxana Downing MD 03/27/2021 10:04 PM Addendum Jonny Cameron RN 03/04/2021 10:22 PM Signed [facility] [place] Melissa Medina Department of Cardiovascular Medicine SECTION OF CARDIAC PACING and ELECTROPHYSIOLOGY OUTPATIENT VISIT DATE March 04, 2021 OUTPATIENT VISIT TYPE NEW PRIMARY CARE PHYSICIAN: Archie Hooks MD [address] [place] [phone] REFERRING PHYSICIAN: Archie Hooks MD [address] [place] [phone] NURSING INTAKE HISTORY: Mr. Rodgers is a 60 year old male who presents today for VT. He has a history of alcohol abuse, smoker, hypertension, and VT. In 2016, he was admitted for hypertensive crisis, had episode of VT while on telemetry with associated chest pressure. He was discharged on metoprolol and lisinopril. He reports brief episodes of chest pressure over the years. Last week, he had a syncopal episode at work with head injury, admitted to the hospital. He had 2 episodes of VT while on monitor, no intervention necessary, his medications were adjusted to losartan-hydrochlorothiaz renetta and verapamil before discharge. Echo showed EF 55-60%. He has been using his 's Kardia this past week to monitor, but has had no similar episodes. He has not worn a site monitor. He reports occasional palpitations and lightheadedness, but denies any further syncopal episodes. PAST MEDICAL HISTORY Diagnosis Date - Hypertension PAST SURGICAL HISTORY Procedure Laterality Date - PAST SURGICAL HISTORY OF kidney stones removed - PAST SURGICAL HISTORY OF heart catheterization - PAST SURGICAL HISTORY OF nerve graft to left wrist SOCIAL HISTORY Social History Tobacco Use - Smoking status: Current Every Day Smoker Packs/day: 2.00 Years: 15.00 Pack years: 30.00 Types: Cigarettes - Smokeless tobacco: Never Used Vaping Use - Vaping Use: Never used Substance Use Topics - Alcohol use: Yes Comment: 6 per week - Drug use: No FAMILY HISTORY Problem Relation Age of Onset - Heart Father at age 40 - Hypertension Father - Ischemic Heart Disease Father - Allergies Father - Ischemic Heart Disease Mother ALLERGIES: ALLERGIES Allergen Reactions - Iodinated Contrast * Hives MEDICATIONS: losartan-hydroCHLOROthiaz renetta (HYZAAR) 100-25 mg per tablet Take 1 tablet by mouth once daily. verapamil SR (CALAN SR, ISOPTIN SR) 240 mg CR tablet Take 240 mg by mouth daily at bedtime. iv contrast (radiology procedure) MRI TSP Inject, intravenously, once for 1 dose. No IV access, insert saline lock prior to the beginning of sedation, infusion, injection of imaging exam. Discontinue saline lock post exam. If Pt. has a central line or IVAD, may access for administration according to line specific nursing protocol. Once exam is complete flush line and de-access according to line specific nursing protocol in the MR contrast administration guidelines link. REVIEW OF SYSTEMS: General, constitutional: Weight loss or gain- No, Fever or chills-No, Weakness-No, Trouble sleeping-yes. Head, Eyes, Ears, Mouth: Headache, head injury-yes, Glasses or contact lenses-yes, Pain-No, Impaired vision-No, Decreased hearing-No, Ringing in ears-No, Nose bleeds-No, Dental difficulties-No, Bleeding gums-No, Dentures-No. Neck: Swelling-No, Pain-No, Stiffness-No. Respiratory: Cough-No, Spitting up blood-No, Shortness of breath-yes, Wheezing or asthma-No. Musculoskeletal: Muscle or joint pain or stiffness-No, Joint swelling-No. Gastrointestinal: Difficulty swallowing-No, Heartburn-No, Change in bowel habits-No, Blood in stool, Dark black stools-No. Neurological/Psychiatric: Weakness, paralysis-yes, Numbness-No, Tingling-yes, Tremor-yes, Nervousness or anxiety-yes, Depressed mood-No, Memory loss-No. Skin: Rash-No, Itching-No. Hematological: Easy bruising-No, Easy bleeding-No. Endocrine: Heat or cold intolerance-No, Excessive sweating-No, Frequent urination-yes, Frequent thirst-No. Jonny Cameron RN PHYSICAL EXAMINATION: BP 122/90 Pulse 76 Ht 182.9 cm (6') Wt 83.9 kg (185 lb) BMI 25.09 kg/m? CARDIOVASCULAR MEDICINE TESTING: OSH Echo 02/25/2021: Interpretation Summary The left ventricular size, thickness and function are normal Ejection Fraction = 55-60%. A variety of Doppler measurements indicate normal left ventricular diastolic function. There is trace mitral regurgitation. There is trace tricuspid regurgitation. Roxana Downing MD 03/04/2021 10:22 PM Addendum Asked to see by D (more content not included)... Normal [facility] RPRon 11-21-2017 Reagin antibody presence Nonreactive Normal Nonreactive [facility] Comment on above: Performed By: #### U A, CBCDIF, GBCHEM, GBTSH, MG, PT, RPR ####[facility] [id number] [place], [place] [phone] CBCDIFon 11-16-2017 Abs Baso 0.02 k/uL Normal 0-0.2 [facility] Comment on above: Performed By: #### U A, CBCDIF, GBCHEM, GBTSH, MG, PT, RPR ####[facility] [id number] [place], [place] [phone] Abs [place] 0.56 k/uL Normal 0-0.8 [facility] Comment on above: Performed By: #### U A, CBCDIF, GBCHEM, GBTSH, MG, PT, RPR ####[facility] [id number] [place], [place] [phone] Abs Neut 3.05 k/uL Normal 1.8-7.7 [facility] Comment on above: Performed By: #### U A, CBCDIF, GBCHEM, GBTSH, MG, PT, RPR ####[facility] [id number] [place], [place] [phone] Basophils/100 WBC Auto (Bld) 0.3 % Normal 0-1 [facility] Comment on above: Performed By: #### U A, CBCDIF, GBCHEM, GBTSH, MG, PT, RPR ####[facility] [id number], [place] [phone] Eosinophils 0.19 10*3/uL Normal 0-0.4 [facility] Comment on above: Performed By: #### U A, CBCDIF, GBCHEM, GBTSH, MG, PT, RPR ####[facility] [id number], [place] [phone] Eosinophils/100 leukocytes 2.9 % Normal 0-4 [facility] Comment on above: Performed By: #### U A, CBCDIF, GBCHEM, GBTSH, MG, PT, RPR ####[facility] [id number] [place], [place] [phone] Erythrocyte distribution width Auto Ratio (RBC) 11.9 % Normal 11.5-14.5 [facility] Comment on above: Performed By: #### U A, CBCDIF, GBCHEM, GBTSH, MG, PT, RPR ####[facility] [id number], [place] [phone] Erythrocytes (RBC) 0 /100 WBC Normal 0-0.9 [facility] Comment on above: Performed By: #### U A, CBCDIF, GBCHEM, GBTSH, MG, PT, RPR ####[facility] [id number], [place] [phone] Erythrocytes (RBC) 4.47 10*6/uL Low 4.50-5.90 [facility] Comment on above: Performed By: #### U A, CBCDIF, GBCHEM, GBTSH, MG, PT, RPR ####[facility] [id number] [facility], [place] [phone] Hematocrit (HCT) 42.7 % Normal 41.0-53.0 [facility] Comment on above: Performed By: #### U A, CBCDIF, GBCHEM, GBTSH, MG, PT, RPR ####[facility] [id number] [facility], [place] [phone] Hemoglobin mass conc (Bld) 15.1 g/dL Normal 13.5-17.5 [facility] Comment on above: Performed By: #### U A, CBCDIF, GBCHEM, GBTSH, MG, PT, RPR ####[facility] [id number] [facility], [place] [phone] Immature Gran 0.20 % Normal 0-1.9 [facility] Comment on above: Performed By: #### U A, CBCDIF, GBCHEM, GBTSH, MG, PT, RPR ####[facility] [id number] [place], [place] [phone] Lymphocytes 2.81 10*3/uL Normal 1.0-4.0 [facility] Comment on above: Performed By: #### U A, CBCDIF, GBCHEM, GBTSH, MG, PT, RPR ####[facility] [id number] [facility] [place] [phone] Lymphocytes/100 leukocytes 42.3 % Normal 22-44 [facility] Comment on above: Performed By: #### U A, CBCDIF, GBCHEM, GBTSH, MG, PT, RPR ####[facility] [id number] [facility] [place] [phone] MCH 33.8 pG Normal 26-34 [facility] Comment on above: Performed By: #### U A, CBCDIF, GBCHEM, GBTSH, MG, PT, RPR ####[facility] [id number], [place] [phone] MCHC mass conc (RBC) 35.4 g/dL Normal 31-37 [facility] Comment on above: Performed By: #### U A, CBCDIF, GBCHEM, GBTSH, MG, PT, RPR ####[facility] [id number], [place] [phone] MCV 95.5 fL Normal 80-100 [facility] Comment on above: Performed By: #### U A, CBCDIF, GBCHEM, GBTSH, MG, PT, RPR ####[facility] Clinical [id number], [place] [phone] Monocytes/100 leukocytes 8.4 % Normal 4-12 [facility] Comment on above: Performed By: #### U A, CBCDIF, GBCHEM, GBTSH, MG, PT, RPR ####[facility] Clinical [id number], [place] [phone] Neutrophils/100 WBC Auto (Bld) 45.9 % Normal 40-70 [facility] Comment on above: Performed By: #### U A, CBCDIF, GBCHEM, GBTSH, MG, PT, RPR ####[facility] Clinical [id number], [place] [phone] Platelets 200 10*3/uL Normal 150-450 [facility] Comment on above: Performed By: #### U A, CBCDIF, GBCHEM, GBTSH, MG, PT, RPR ####[facility] [id number], [place] [phone] WBC (Leukocytes) 6.64 10*3/uL Normal 4.5-11.0 [facility] Comment on above: Performed By: #### U A, CBCDIF, GBCHEM, GBTSH, MG, PT, RPR ####[facility] [id number], [place] [phone] [facility] [facility] 2017 Alanine aminotransferase (ALT) 42 U/L Normal 21-72 [facility] Comment on above: Performed By: #### U A, CBCDIF, GBCHEM, GBTSH, MG, PT, RPR ####[facility] Clinical [id number], [place] [phone] Albumin 4.1 g/dL Normal 3.5-5.0 [facility] Comment on above: Performed By: #### U A, CBCDIF, GBCHEM, GBTSH, MG, PT, RPR ####[facility] Clinical [id number] [address]St[facility] Hospitalrdon, [place] [phone] Alkaline Phos 73 U/L Normal 38-125 [facility] Comment on above: Performed By: #### U A, CBCDIF, GBCHEM, GBTSH, MG, PT, RPR ####[facility] Clinical [id number] [address]Sturdy [facility] Hospitalrdon, [place] [phone] Amylase 78 U/L Normal 30-110 [facility] Comment on above: Performed By: #### U A, CBCDIF, GBCHEM, GBTSH, MG, PT, RPR ####[facility] [id number] [facility], [place] [phone] Anion gap 16 mmol/L High 0-15 [facility] Comment on above: Performed By: #### U A, CBCDIF, GBCHEM, GBTSH, MG, PT, RPR ####[facility] Clinical Use[address]65 [address]Sturdy Memorial Hospitalrdon, [place] [phone] Aspartate aminotransferase (AST) 24 U/L Normal 17-59 [facility] Comment on above: Performed By: #### U A, CBCDIF, GBCHEM, GBTSH, MG, PT, RPR ####[facility] Clinical [id number] [address], [place] [phone] Bilirubin Ql (U) 0.8 mg/dL Normal 0.2-1.3 [facility] Comment on above: Performed By: #### U A, CBCDIF, GBCHEM, GBTSH, MG, PT, RPR ####[facility] Clinical [id number] [facility] [place] [phone] Calcium 9.2 mg/dL Normal 8.4-10.2 [facility] Comment on above: Performed By: #### U A, CBCDIF, GBCHEM, GBTSH, MG, PT, RPR ####[facility] Clinical [id number] [address], [place] [phone] Chloride 108 mmol/L High 98-107 [facility] Comment on above: Performed By: #### U A, CBCDIF, GBCHEM, GBTSH, MG, PT, RPR ####[facility] Clinical [id number] [facility] [place] [phone] Cholesterol 196 mg/dL Normal 100-199 [facility] Comment on above: Performed By: #### U A, CBCDIF, GBCHEM, GBTSH, MG, PT, RPR ####[facility] Clinical [id number] [facility] [place] [phone] CO2 24 mmol/L Normal 22-30 [facility] Comment on above: Performed By: #### U A, CBCDIF, GBCHEM, GBTSH, MG, PT, RPR ####[facility] Clinical [id number] [facility], [place] [phone] Creatinine 0.68 mg/dL Normal 0.66-1.25 [facility] Comment on above: Performed By: #### U A, CBCDIF, GBCHEM, GBTSH, MG, PT, RPR ####[facility] Clinical [id number] [facility], [place] [phone] eGFR (non-black) mL/min/{1.73_m2} Normal >60 [facility] Comment on above: Performed By: #### U A, CBCDIF, GBCHEM, GBTSH, MG, PT, RPR ####[facility] Clinical [id number] [facility], [place] [phone] Result Comment: MDRD calculation used for eGFR results. GGT 78 U/L High 15-73 [facility] Comment on above: Performed By: #### U A, CBCDIF, GBCHEM, GBTSH, MG, PT, RPR ####[facility] Clinical [id number] [address] RdSturdy Memorial Hospitalrdon, [place] [phone] Glucose mass conc 84 mg/dL Normal 74-106 [facility] Comment on above: Performed By: #### U A, CBCDIF, GBCHEM, GBTSH, MG, PT, RPR ####[facility] Clinical [id number] [facility], [place] [phone] LDH 424 U/L Normal 318-618 [facility] Comment on above: Performed By: #### U A, CBCDIF, GBCHEM, GBTSH, MG, PT, RPR ####[facility] Clinical [id number] [address] RdSturdy Memorial Hospitalrdon, [place] [phone] Phosphate 4.1 mg/dL Normal 2.5-4.5 [facility] Comment on above: Performed By: #### U A, CBCDIF, GBCHEM, GBTSH, MG, PT, RPR ####[facility] Clinical [id number] [address] RdSturdy Memorial Hospitalrdon, [place] [phone] Potassium molar conc 3.6 mmol/L Normal 3.5-5.1 [facility] Comment on above: Performed By: #### U A, CBCDIF, GBCHEM, GBTSH, MG, PT, RPR ####[facility] Clinical Jnp56540 [address] RdSturdy Memorial Hospitalrdon, [place] [phone] Protein 6.6 g/dL Normal 6.2-8.2 [facility] Comment on above: Performed By: #### U A, CBCDIF, GBCHEM, GBTSH, MG, PT, RPR ####[facility] Clinical [id number] [address], [place] [phone] Sodium 144 mmol/L Normal 137-145 [facility] Comment on above: Performed By: #### U A, CBCDIF, GBCHEM, GBTSH, MG, PT, RPR ####[facility] Clinical [id number] [facility], [phone] Triglyceride 125 mg/dL Normal 35-150 [facility] Comment on above: Performed By: #### U A, CBCDIF, GBCHEM, GBTSH, MG, PT, RPR ####[facility] Clinical [id number] [facility] [place], [phone] Urate 5.0 mg/dL Normal 3.5-8.5 [facility] Comment on above: Performed By: #### U A, CBCDIF, GBCHEM, GBTSH, MG, PT, RPR ####[facility] Clinical [id number] [facility], [phone] Urea nitrogen 15 mg/dL Normal 9-20 [facility] Comment on above: Performed By: #### U A, CBCDIF, GBCHEM, GBTSH, MG, PT, RPR ####[facility] Clinical Xoc32978 [address], [phone] [facility] TSHon 11-16-2017 Thyroid stimulating hormone (TSH) 2.210 uU/mL Normal 0.465-4.680 [facility] Comment on above: Performed By: #### U A, CBCDIF, GBCHEM, GBTSH, MG, PT, RPR ####[facility] Clinical [id number] [facility], [phone] Magnesiumon 11-16-2017 Magnesium 1.9 mg/dL Normal 1.3-2.3 [facility] Comment on above: Performed By: #### U A, CBCDIF, GBCHEM, GBTSH, MG, PT, RPR ####[facility] Clinical [id number] [address]R[place], [place] [phone] Protimeon 11-16-2017 INR Coag RelTime (Bld) 1.1 {INR} Normal 0.6-1.1 [facility] Comment on above: Result Comment: The PT/INR can be used to monitor the therapeutic effect of oral anticoagulants, such as warfarin. The recommended therapeutic range is an INR of 2.0 to 3.0 for most applications, including treatment and prevention of venous thrombosis,treatment of pulmonary embolism, prevention of strokes/TIA in patients with atrial fibrillation, prevention and treatment of thrombosis in patients with a lupus anticoagulant and prevention of systemic embolization in patients with heart valve disorders.There are certain conditions where clinicians may decide to use a lower or higher therapeutic range eg. 1.5 to 1.9 for secondary prevention of idiopathic venous thromboembolism and an INR 2.5 to 3.5 for older generation mechanical heart valves.Miahell, et al. Chest 2004: 126:204S to 233S. Performed By: #### U A, CBCDIF, GBCHEM, GBTSH, MG, PT, RPR ####[facility] [id number] [place], [place] [phone] PT Sec 13.2 sec Normal 11.8-14.1 [facility] Comment on above: Performed By: #### U A, CBCDIF, GBCHEM, GBTSH, MG, PT, RPR ####[facility] [id number] [place], [place] [phone] Urinalysison 11-16-2017 Bilirubin (total) Negative Normal Negative [facility] Comment on above: Performed By: #### U A, CBCDIF, GBCHEM, GBTSH, MG, PT, RPR ####[facility] [id number] [place], [place] [phone] Cast SEE NOTES Normal 0 [facility] Comment on above: Result Comment: 3-5H yaline Cast Performed By: #### U A, CBCDIF, GBCHEM, GBTSH, MG, PT, RPR ####[facility] [id number] [place], [place] [phone] Erythrocytes (RBC) 0-3 Normal 0-3 [facility] Comment on above: Performed By: #### U A, CBCDIF, GBCHEM, GBTSH, MG, PT, RPR ####[facility] Clinical Hvo60125 [facility], [place] [phone] Glucose mass conc Negative Normal Negative [facility] Comment on above: Performed By: #### U A, CBCDIF, GBCHEM, GBTSH, MG, PT, RPR ####[facility] Clinical [id number] [facility], [place] [phone] Hemoglobin mass conc (Bld) Negative Normal Negative [facility] Comment on above: Performed By: #### U A, CBCDIF, GBCHEM, GBTSH, MG, PT, RPR ####[facility] Clinical [id number] [facility], [place] [phone] Ketone Negative Normal Negative [facility] Comment on above: Performed By: #### U A, CBCDIF, GBCHEM, GBTSH, MG, PT, RPR ####[facility] Clinical Cav67031 [facility], [place] [phone] Leukest Negative Normal Negative [facility] Comment on above: Performed By: #### U A, CBCDIF, GBCHEM, GBTSH, MG, PT, RPR ####[facility] Clinical [id number] [facility], [place] [phone] Protein 30 mg/dl Critically abnormal Negative [facility] Comment on above: Performed By: #### U A, CBCDIF, GBCHEM, GBTSH, MG, PT, RPR ####[facility] Clinical [id number] [place], [place] [phone] Urine Felton Comment Many Normal [facility] Comment on above: Result Comment: MUCO US Performed By: #### U A, CBCDIF, GBCHEM, GBTSH, MG, PT, RPR ####[facility] [id number] [facility] [place] [phone] Urine Spec Stafford 1.032 High 1.005-1.030 [facility] Comment on above: Performed By: #### U A, CBCDIF, GBCHEM, GBTSH, MG, PT, RPR ####[facility] Clinical [id number] [address], [place] [phone] Urine, clarity Hazy Critically abnormal Clear [facility] Comment on above: Performed By: #### U A, CBCDIF, GBCHEM, GBTSH, MG, PT, RPR ####[facility] Clinical [id number] [address], [place] [phone] Urine, color Yellow Normal Yellow [facility] Comment on above: Performed By: #### U A, CBCDIF, GBCHEM, GBTSH, MG, PT, RPR ####[facility] Clinical [id number] [address], [place] [phone] Urine, crystals in sediment SEE NOTES Normal 0 [facility] Comment on above: Result Comment: FewC alcium Oxalate Crystal Performed By: #### U A, CBCDIF, GBCHEM, GBTSH, MG, PT, RPR ####[facility] Clinical [id number] [address], [place] [phone] Urine, epithelial cells in sediment Few Normal [facility] Comment on above: Result Comment: Vazquez sitional Epithelial Cells Performed By: #### U A, CBCDIF, GBCHEM, GBTSH, MG, PT, RPR ####[facility] Clinical Jau38191 [address], [place] [phone] Urine, nitrite presence Negative Normal Negative [facility] Comment on above: Performed By: #### U A, CBCDIF, GBCHEM, GBTSH, MG, PT, RPR ####[facility] Pqo29780 [address], [place] [phone] Urine, pH 5.0 [pH] Normal 5-7 [facility] Comment on above: Performed By: #### U A, CBCDIF, GBCHEM, GBTSH, MG, PT, RPR ####[facility] [id number] [address], [place] [phone] Urine, urobilinogen <2.0 Normal 0.0-1.0 [facility] Comment on above: Performed By: #### U A, CBCDIF, GBCHEM, GBTSH, MG, PT, RPR ####[facility] [id number] [place], [place] [phone] WBC (Leukocytes) 0-5 Normal 0-5 [facility] Comment on above: Performed By: #### U A, CBCDIF, GBCHEM, GBTSH, MG, PT, RPR ####[facility] Isg75913 [place], [place] [phone] Vital Signs Date Time Vital Sign Value Performing Clinician Facility 06-11-2024 10:57-0500 Body height 180.3 cm Archie Hooks MD Work Phone: [facility] 06-11-2024 10:57-0500 Body mass index (BMI) [Ratio] 22.45 kg/m2 Archie Hooks MD Work Phone: [facility] 06-11-2024 10:57-0500 Body weight 73.03 kg Archie Hooks MD Work Phone: [facility] 05-02-2024 08:25-0400 Body height 180.3 cm Archie Hooks MD Work Phone: [facility] 05-02-2024 08:25-0400 Body mass index (BMI) [Ratio] 22.45 kg/m2 Archie Hooks MD Work Phone: [facility] 05-02-2024 08:25-0400 Body weight 73.03 kg Archie Hooks MD Work Phone: [facility] 05-02-2024 08:25-0400 Diastolic blood pressure 74 mm[Hg] Archie Hooks MD Work Phone: [facility] 05-02-2024 08:25-0400 Heart rate 59 /min Archie Hooks MD Work Phone: [facility] 05-02-2024 08:25-0400 SaO2% (BldA) [Mass fraction] 96 % Archie Hooks MD Work Phone: [facility] 05-02-2024 08:25-0400 Systolic blood pressure 126 mm[Hg] Archie Hooks MD Work Phone: [facility] 04-25-2024 14:08-0400 Body height 180.3 cm Luis Ruby MD Work Phone: [facility] 04-25-2024 14:08-0400 Body mass index (BMI) [Ratio] 22.32 kg/m2 Luis Ruby MD Work Phone: [facility] 04-25-2024 14:08-0400 Body weight 72.58 kg Luis Ruby MD Work Phone: [facility] 04-25-2024 14:08-0400 Diastolic blood pressure 84 mm[Hg] Luis Ruby MD Work Phone: [facility] 04-25-2024 14:08-0400 Systolic blood pressure 136 mm[Hg] Luis Ruby MD Work Phone: [facility] 12-11-2023 10:53-0400 Body height 182.9 cm López Seals MD Work Phone: [facility] 12-11-2023 10:53-0400 Body mass index (BMI) [Ratio] 22.11 kg/m2 López Seals MD Work Phone: [facility] 12-11-2023 10:53-0400 Body weight 73.94 kg López Seals MD Work Phone: [facility] 12-11-2023 10:53-0400 Diastolic blood pressure 72 mm[Hg] López Seals MD Work Phone: [facility] 12-11-2023 10:53-0400 Heart rate 56 /min López Seals MD Work Phone: [facility] 12-11-2023 10:53-0400 Systolic blood pressure 106 mm[Hg] López Seals MD Work Phone: [facility] 10-30-2023 09:00-0400 Body height 182.9 cm [facility] 10-30-2023 09:00-0400 Body mass index (BMI) [Ratio] 22.78 kg/m2 [facility] 10-30-2023 09:00-0400 Body weight 76.2 kg [facility] 10-30-2023 09:00-0400 Diastolic blood pressure 60 mm[Hg] [facility] 10-30-2023 09:00-0400 Heart rate 57 /min [facility] 10-30-2023 09:00-0400 Systolic blood pressure 100 mm[Hg] [facility] 10-27-2023 14:35-0400 Body height 182.9 cm López Seals MD Work Phone: [facility] 10-27-2023 14:35-0400 Body mass index (BMI) [Ratio] 22.78 kg/m2 López Seals MD Work Phone: [facility] 10-27-2023 14:35-0400 Body weight 76.2 kg López Seals MD Work Phone: [facility] 10-27-2023 14:35-0400 Diastolic blood pressure 68 mm[Hg] López Seals MD Work Phone: [facility] 10-27-2023 14:35-0400 Heart rate 58 /min López Seals MD Work Phone: [facility] 10-27-2023 14:35-0400 Systolic blood pressure 124 mm[Hg] López Seals MD Work Phone: [facility] 07-20-2023 16:28-0500 Heart rate 51 /min Víctor BRADY [facility] 07-20-2023 16:28-0500 SaO2% (BldA) [Mass fraction] 100 % Víctor COOK [facility] 07-20-2023 16:27-0500 Diastolic blood pressure 87 mm[Hg] Víctor COOK [facility] 07-20-2023 16:27-0500 Mean blood pressure 104 mm[Hg] Víctor COOK [facility] 07-20-2023 16:27-0500 Systolic blood pressure 137 mm[Hg] Víctor COOK [facility] 07-20-2023 16:27-0500 Body temperature 97.7 [degF] Víctor COOK [facility] 07-20-2023 16:27-0500 Mean blood pressure 104 mm[Hg] Víctor COOK [facility] 07-20-2023 15:30-0500 Body temperature 97.52 [degF] Víctor BRADY [facility] 07-20-2023 15:30-0500 Diastolic blood pressure 82 mm[Hg] Víctor COOK [facility] 07-20-2023 15:30-0500 Heart rate 51 /min Víctor COOK [facility] 07-20-2023 15:30-0500 Mean blood pressure 104 mm[Hg] Víctor COOK [facility] 07-20-2023 15:30-0500 Respiratory rate 14 /min Víctor COOK [facility] 07-20-2023 15:30-0500 SaO2% (BldA) [Mass fraction] 100 % Víctor COOK [facility] 07-20-2023 15:30-0500 Systolic blood pressure 149 mm[Hg] Víctor COOK [facility] 07-20-2023 15:22-0500 Body temperature 97.7 [degF] Víctor COOK [facility] 07-20-2023 15:22-0500 Diastolic blood pressure 85 mm[Hg] Víctor COOK [facility] 07-20-2023 15:22-0500 Heart rate 52 /min Víctor COOK [facility] 07-20-2023 15:22-0500 Mean blood pressure 105 mm[Hg] Víctor COOK [facility] 07-20-2023 15:22-0500 Respiratory rate 15 /min Víctor BRADY [facility] 07-20-2023 15:22-0500 SaO2% (BldA) [Mass fraction] 100 % Víctor BRADY [facility] 07-20-2023 15:22-0500 Systolic blood pressure 145 mm[Hg] Víctor BRADY [facility] 07-20-2023 15:10-0500 Respiratory rate 12 /min Víctor COOK [facility] 07-20-2023 14:50-0500 Respiratory rate 10 /min Víctor COOK [facility] 07-20-2023 14:45-0500 Respiratory rate 10 /min Víctor COOK [facility] 07-20-2023 14:40-0500 Respiratory rate 10 /min Víctor COOK [facility] 07-20-2023 12:15-0500 Body temperature 97.34 [degF] Víctor COOK [facility] 07-20-2023 12:15-0500 Mean blood pressure 113 mm[Hg] Víctor COOK [facility] 07-14-2023 10:23-0500 Diastolic blood pressure 71 mm[Hg] Víctor BRADY [facility] 07-14-2023 10:23-0500 Heart rate 57 /min Víctor BRADY [facility] 07-14-2023 10:23-0500 Mean blood pressure 88 mm[Hg] Víctor BRADY [facility] 07-14-2023 10:23-0500 Systolic blood pressure 121 mm[Hg] Víctor BRADY [facility] 07-14-2023 10:22-0500 Heart rate 59 /min Víctor BRADY [facility] 07-14-2023 10:22-0500 SaO2% (BldA) [Mass fraction] 98 % Víctor BRADY [facility] 07-14-2023 10:22-0500 Diastolic blood pressure 74 mm[Hg] Víctor BRADY [facility] 07-14-2023 10:22-0500 Mean blood pressure 90 mm[Hg] Víctor BRADY [facility] 07-14-2023 10:22-0500 Systolic blood pressure 123 mm[Hg] Víctor BRADY [facility] 07-06-2023 20:25-0500 Diastolic blood pressure 72 mm[Hg] MD Archie Hooks Work Phone: [facility] 07-06-2023 20:25-0500 Heart rate 61 /min MD Archie Hooks Work Phone: [facility] 07-06-2023 20:25-0500 Respiratory rate 18 /min MD Archie Hooks Work Phone: [facility] 07-06-2023 20:25-0500 SaO2% (BldA) [Mass fraction] 98 % MD Archie Hooks Work Phone: [facility] 07-06-2023 20:25-0500 Systolic blood pressure 113 mm[Hg] MD Archie Hooks Work Phone: [facility] 07-06-2023 17:16-0500 Body height 185.42 cm MD Archie Hooks Work Phone: [facility] 07-06-2023 17:16-0500 Body temperature 98.6 [degF] MD Archie Hooks Work Phone: [facility] 07-06-2023 17:16-0500 Body weight 78.01 kg MD Archie Hooks Work Phone: [facility] 07-04-2023 13:30-0500 Blood Pressure Location Víctor BRADY [facility] 07-04-2023 13:30-0500 Diastolic blood pressure 74 mm[Hg] Víctor COOK [facility] 07-04-2023 13:30-0500 Heart rate 70 /min Víctor BRDAY [facility] 07-04-2023 13:30-0500 Systolic blood pressure 120 mm[Hg] Víctor COOK [facility] 06-28-2023 16:15-0500 Diastolic blood pressure 69 mm[Hg] MD Archie Hooks Work Phone: [facility] 06-28-2023 16:15-0500 Heart rate 62 /min MD Archie Hooks Work Phone: [facility] 06-28-2023 16:15-0500 Respiratory rate 16 /min MD Archie Hooks Work Phone: [facility] 06-28-2023 16:15-0500 SaO2% (BldA) [Mass fraction] 96 % MD Archie Hooks Work Phone: [facility] 06-28-2023 16:15-0500 Systolic blood pressure 107 mm[Hg] MD Archie Hooks Work Phone: [facility] 06-28-2023 11:49-0500 Body height 185.42 cm MD Archie Hooks Work Phone: [facility] 06-28-2023 11:49-0500 Body temperature 97.5 [degF] MD Archie Hooks Work Phone: [facility] 06-28-2023 11:49-0500 Body weight 78.2 kg MD Archie Hooks Work Phone: [facility] 06-23-2023 03:50-0500 Diastolic blood pressure 89 mm[Hg] MD Archie Hooks Work Phone: [facility] 06-23-2023 03:50-0500 Heart rate 62 /min MD Archie Hooks Work Phone: [facility] 06-23-2023 03:50-0500 Respiratory rate 18 /min MD Archie Hooks Work Phone: [facility] 06-23-2023 03:50-0500 SaO2% (BldA) [Mass fraction] 98 % MD Archie Hooks Work Phone: [facility] 06-23-2023 03:50-0500 Systolic blood pressure 164 mm[Hg] MD Archie Hooks Work Phone: [facility] 06-23-2023 02:31-0500 Body temperature 97.4 [degF] MD Archie Hooks Work Phone: [facility] 06-23-2023 00:34-0500 Body height 185.42 cm MD Archie Hooks Work Phone: [facility] 06-23-2023 00:34-0500 Body weight 78 kg MD Archie Hooks Work Phone: [facility] 06-01-2023 10:14-0400 Body height 185.4 cm López Galan DO Work Phone: [facility] 06-01-2023 10:14-0400 Body mass index (BMI) [Ratio] 22.56 kg/m2 López Galan DO Work Phone: [facility] 06-01-2023 10:14040 Body weight 77.56 kg López Galan DO Work Phone: [facility] 06-01-2023 10:14-0400 Diastolic blood pressure 64 mm[Hg] López Galan DO Work Phone: [facility] 06-01-2023 10:14-0400 Heart rate 62 /min López Galan DO Work Phone: [facility] 06-01-2023 10:14-0400 Systolic blood pressure 102 mm[Hg] López Galan DO Work Phone: [facility] 05-01-2023 13:17-0400 Diastolic blood pressure 71 mm[Hg] MD Archie Hooks Work Phone: [facility] 05-01-2023 13:17-0400 Heart rate 60 /min MD Archie Hooks Work Phone: [facility] 05-01-2023 13:17-0400 Respiratory rate 16 /min MD Archie Hooks Work Phone: [facility] 05-01-2023 13:17-0400 SaO2% (BldA) [Mass fraction] 98 % MD Archie Hooks Work Phone: [facility] 05-01-2023 13:17-0400 Systolic blood pressure 110 mm[Hg] MD Archie Hooks Work Phone: [facility] 05-01-2023 08:48-0400 Body height 185.42 cm MD Archie Hooks Work Phone: [facility] 05-01-2023 08:48-0400 Body temperature 97.1 [degF] MD Archie Hooks Work Phone: [facility] 05-01-2023 08:48-0400 Body weight 78 kg MD Archie Hooks Work Phone: [facility] 04-26-2023 11:27-0400 Body height 185.42 cm Archie Hooks Work Phone: [facility] [address] DO Work Phone: 04-26-2023 11:27-0400 Body mass index (BMI) [Ratio] 22.96 kg/m2 Archie Hooks Work Phone: [facility] 250 DO Work Phone: 04-26-2023 11:27-0400 Body surface area Derived from formula 2.03 m2 Archie Hooks Work Phone: [facility] 250 DO Work Phone: 04-26-2023 11:27-0400 Body weight 78.93 kg Archie Hooks Work Phone: [facility] 250 DO Work Phone: 04-26-2023 11:27-0400 Diastolic blood pressure 98 mm[Hg] Archie Hooks Work Phone: [facility] 250 DO Work Phone: 04-26-2023 11:27-0400 Heart rate 62 /min Archie Hooks Work Phone: [facility] 250 DO Work Phone: 04-26-2023 11:27-0400 Systolic blood pressure 142 mm[Hg] Archie Hooks Work Phone: [facility] 250 DO Work Phone: 03-05-2023 07:30-0400 Body temperature 97.6 [degF] MD Archie Hooks Work Phone: [facility] 03-05-2023 07:30-0400 Diastolic blood pressure 95 mm[Hg] MD Archie Hooks Work Phone: [facility] 03-05-2023 07:30-0400 Heart rate 72 /min MD Archie Hooks Work Phone: [facility] 03-05-2023 07:30-0400 Respiratory rate 16 /min MD Archie Hooks Work Phone: [facility] 03-05-2023 07:30-0400 SaO2% (BldA) [Mass fraction] 95 % MD Archie Hooks Work Phone: [facility] 03-05-2023 07:30-0400 Systolic blood pressure 153 mm[Hg] MD Archie Hooks Work Phone: [facility] 03-02-2023 15:03-0400 Body height 185.42 cm MD Archie Hooks Work Phone: [facility] 03-01-2023 10:23-0400 Body weight 81.19 kg MD Archie Hooks Work Phone: [facility] 02-20-2023 08:03-0400 Body height 185.42 cm Archie Hooks Work Phone: [facility] 250 DO Work Phone: 02-20-2023 08:03-0400 Body mass index (BMI) [Ratio] 23.35 kg/m2 Archie Hooks Work Phone: [facility] 250 DO Work Phone: 02-20-2023 08:03-0400 Body surface area Derived from formula 2.04 m2 Archie Valenteyer Work Phone: [facility] 250 DO Work Phone: 02-20-2023 08:03-0400 Body weight 80.29 kg Edpilo Valenteyer Work Phone: [facility] 250 DO Work Phone: 02-20-2023 08:03-0400 Diastolic blood pressure 60 mm[Hg] Archie Valenteyer Work Phone: [facility] 250 DO Work Phone: 02-20-2023 08:03-0400 Heart rate 64 /min Archie Valenteyer Work Phone: [facility] 250 DO Work Phone: 02-20-2023 08:03-0400 Systolic blood pressure 104 mm[Hg] Archie Valenteyer Work Phone: [facility] 250 DO Work Phone: 01-25-2023 08:34-0400 Body height 185.42 cm Archie Valenteyer Work Phone: [facility] 250 DO Work Phone: 01-25-2023 08:34-0400 Body mass index (BMI) [Ratio] 23.88 kg/m2 Archie Valenteyer Work Phone: [facility] 250 DO Work Phone: 01-25-2023 08:34-0400 Body surface area Derived from formula 2.06 m2 Nancypilo Valenteyer Work Phone: [facility] 250 DO Work Phone: 01-25-2023 08:34-0400 Body weight 82.1 kg Nancypilo Valenteyer Work Phone: [facility] 250 DO Work Phone: 01-25-2023 08:34-0400 Diastolic blood pressure 94 mm[Hg] Archie Valentealejandra Work Phone: [facility] 250 DO Work Phone: 01-25-2023 08:34-0400 Heart rate 62 /min Archie Valentealejandra Work Phone: [facility] 250 DO Work Phone: 01-25-2023 08:34-0400 Systolic blood pressure 142 mm[Hg] Archie Hooks Work Phone: [facility] 250 DO Work Phone: 01-13-2023 14:25-0400 Body temperature 97 [degF] MD Archie Hooks Work Phone: [facility] 01-13-2023 14:25-0400 Diastolic blood pressure 75 mm[Hg] MD Archie Hooks Work Phone: [facility] 01-13-2023 14:25-0400 Heart rate 55 /min MD Archie Hooks Work Phone: [facility] 01-13-2023 14:25-0400 Respiratory rate 16 /min MD Archie Hooks Work Phone: [facility] 01-13-2023 14:25-0400 SaO2% (BldA) [Mass fraction] 97 % MD Archie Hooks Work Phone: [facility] 01-13-2023 14:25-0400 Systolic blood pressure 130 mm[Hg] MD Archie Hooks Work Phone: [facility] 01-13-2023 06:00-0400 Body weight 81.7 kg MD Archie Hooks Work Phone: [facility] 01-12-2023 14:55-0400 Body height 182.88 cm MD Archie Hooks Work Phone: [facility] 01-12-2023 13:12-0400 60 1 Archie Hooks Work Phone: [facility] 250 DO Work Phone: Comment on above: [id number] 01-12-2023 12:30-0400 Diastolic blood pressure 67 mm[Hg] MD Archie Hooks Work Phone: [facility] 01-12-2023 12:30-0400 Heart rate 50 /min MD Archie Hooks Work Phone: [facility] 01-12-2023 12:30-0400 Respiratory rate 18 /min MD Archie Hooks Work Phone: [facility] 01-12-2023 12:30-0400 SaO2% (BldA) [Mass fraction] 99 % MD Archie Hooks Work Phone: [facility] 01-12-2023 12:30-0400 Systolic blood pressure 120 mm[Hg] MD Archie Hooks Work Phone: [facility] 01-12-2023 08:31-0400 Body height 182.88 cm MD Archie Hooks Work Phone: [facility] 01-12-2023 08:31-0400 Body temperature 97.1 [degF] MD Archie Hooks Work Phone: [facility] 01-12-2023 08:31-0400 Body weight 90.71 kg MD Archie Hooks Work Phone: [facility] 09-24-2022 18:20-0500 Diastolic blood pressure 60 mm[Hg] MD Archie Hooks Work Phone: [facility] 09-24-2022 18:20-0500 Heart rate 75 /min MD Archie Hooks Work Phone: [facility] 09-24-2022 18:20-0500 Respiratory rate 18 /min MD Archie Hooks Work Phone: [facility] 09-24-2022 18:20-0500 SaO2% (BldA) [Mass fraction] 95 % MD Archie Hooks Work Phone: [facility] 09-24-2022 18:20-0500 Systolic blood pressure 104 mm[Hg] MD Archie Hooks Work Phone: [facility] 09-24-2022 15:00-0500 Body height 185.42 cm MD Archie Hooks Work Phone: [facility] 09-24-2022 15:00-0500 Body temperature 102 [degF] MD Archie Hooks Work Phone: [facility] 09-24-2022 15:00-0500 Body weight 82.3 kg MD Archie Hooks Work Phone: [facility] 08-21-2022 12:15-0500 Diastolic blood pressure 84 mm[Hg] MD Archie Hooks Work Phone: [facility] 08-21-2022 12:15-0500 Heart rate 64 /min MD Archie Hooks Work Phone: [facility] 08-21-2022 12:15-0500 Respiratory rate 18 /min MD Archie Hooks Work Phone: [facility] 08-21-2022 12:15-0500 SaO2% (BldA) [Mass fraction] 98 % MD Archie Hooks Work Phone: [facility] 08-21-2022 12:15-0500 Systolic blood pressure 134 mm[Hg] MD Archie Hooks Work Phone: [facility] 08-21-2022 09:39-0500 Body height 185.42 cm MD Archie Hooks Work Phone: [facility] 08-21-2022 09:39-0500 Body temperature 97.1 [degF] MD Archie Hooks Work Phone: [facility] 08-21-2022 09:39-0500 Body weight 83.45 kg MD Archie Hooks Work Phone: [facility] 12-14-2021 14:21-0400 Diastolic blood pressure 91 mm[Hg] Davey Roberts [facility] 12-14-2021 14:21-0400 Heart rate 92 /min Davey Roberts [facility] 12-14-2021 14:21-0400 Mean blood pressure 106 mm[Hg] Davey Roberts [facility] 12-14-2021 14:21-0400 Respiratory rate 18 /min Davey Roberts [facility] 12-14-2021 14:21-0400 Systolic blood pressure 136 mm[Hg] Davey Roberts [facility] 10-19-2021 08:36-0400 Diastolic blood pressure 83 mm[Hg] Davey Roberts [facility] 10-19-2021 08:36-0400 Heart rate 82 /min Davey Roberts [facility] 10-19-2021 08:36-0400 Mean blood pressure 99 mm[Hg] Davey Roberts [facility] 10-19-2021 08:36-0400 Respiratory rate 18 /min Davey Roberts [facility] 10-19-2021 08:36-0400 Systolic blood pressure 132 mm[Hg] Davey Roberts [facility] Encounters Encounter Date Encounter Type Care Provider Facility Start: 01-15-2025 ambulatory Víctor BRADY Facility :[facility] Start: 07-29-2024 End: 07-29-2024 Bamboo flowsheet Archie Hooks MD Work Phone: [facility] Start: 07-29-2024 End: 07-29-2024 Bamboo flowsheet Archie Hooks MD Work Phone: [facility] Start: 07-29-2024 End: 07-29-2024 Clinisync Result Encounter Archie Hooks MD Work Phone: [facility] Unsolicited Start: 07-29-2024 ambulatory Serafin Hinds acility:[facility] Start: 07-26-2024 End: 07-26-2024 Refill Luis Ruby MD Work Phone: [facility] Comment on above: Polyneuropathy Start: 06-11-2024 End: 06-11-2024 Bamboo flowsheet Archie Hooks MD Work Phone: [facility] Start: 06-11-2024 End: 06-11-2024 Bamboo flowsheet Archie Hooks MD Work Phone: [facility] Start: 06-11-2024 End: 06-11-2024 Clinisync Result Encounter Archie Hooks MD Work Phone: [facility] Unsolicited Start: 06-11-2024 End: 06-11-2024 Office outpatient visit 25 minutes Archie Hooks MD Work Phone: [facility] Comment on above: Diverticulitis of la rge intestine with bleeding, unspecified complication status (Primary Dx); Bright red blood per rectum; Colon cancer screening Start: 06-11-2024 End: 06-11-2024 ambulatory ARCHIE HOOKS Not Available Start: 05-02-2024 End: 05-02-2024 Bamboo flowsheet Archie Hooks MD Work Phone: [facility] Start: 05-02-2024 End: 05-02-2024 Bamboo flowsheet Archie Hooks MD Work Phone: [facility] Start: 05-02-2024 End: 05-02-2024 Office outpatient visit 25 minutes Archie Hooks MD Work Phone: [facility] Comment on above: Benign essential hyp ertension (CMS/HCC) (Primary Dx); Hypertensive nephropathy (CMS/HCC); Microalbuminuria; Type 2 diabetes mellitus without complication, without long-term current use of insulin (CMS/HCC); Mixed dyslipidemia (CMS/HCC); Polypharmacy; Nicotine use disorder; Alcoholism (CMS/HCC) Start: 05-02-2024 End: 05-02-2024 ambulatory ARCHIE HOOKS Not Available Start: 04-25-2024 End: 04-25-2024 Bamboo flowsheet Luis Ruby MD Work Phone: [facility] Start: 04-25-2024 End: 04-25-2024 Bamboo flowsheet Luis Ruby MD Work Phone: [facility] Start: 04-25-2024 End: 04-25-2024 Office outpatient visit 25 minutes Luis Ruby MD Work Phone: [facility] Comment on above: Intractable chronic cluster headache (Primary Dx); Tremor; Polyneuropathy; Lumbar radiculopathy; Intention tremor Start: 04-25-2024 End: 04-25-2024 ambulatory LUIS RUBY Not Available Start: 01-24-2024 End: 01-24-2024 ambulatory LUIS RUBY Not Available Start: 01-17-2024 End: 01-17-2024 ambulatory Víctor BRADY Facility:[facility] Start: 01-17-2024 End: 01-17-2024 Patient encounter procedure Víctor BRADY [facility] Start: 01-15-2024 End: 01-15-2024 ambulatory Víctor BRADY Facility[facility] Start: 01-15-2024 End: 01-15-2024 Patient encounter procedure Víctor BRADY [facility] Start: 12-11-2023 End: 12-11-2023 ambulatory [facility] Start: 12-11-2023 End: 12-11-2023 Office outpatient visit 25 minutes López Seals MD Work Phone: [facility] Comment on above: Palpitations (Primar y Dx); PAF (paroxysmal atrial fibrillation) (Multi); Mixed hyperlipidemia; Essential hypertension, benign Start: 11-16-2023 End: 11-16-2023 ambulatory NANCYPILO Christie HOOKS Not Available Start: 10-30-2023 End: 10-30-2023 ambulatory [facility] Start: 10-30-2023 End: 10-30-2023 [facility] Comment on above: Palpitations; PAF (paroxysmal atrial fibrillation) (CMS/HCC) Start: 10-27-2023 End: 10-27-2023 ambulatory [facility] Start: 10-27-2023 End: 10-27-2023 Office outpatient visit 25 minutes López Seals MD Work Phone: [facility] Comment on above: Essential hypertensi on, benign; Other chest pain; Palpitations; PAF (paroxysmal atrial fibrillation) (CMS/HCC); BMI 22.0-22.9, adult; Smoker Start: 10-23-2023 End: 10-23-2023 ambulatory LUIS RUBY Not Available Start: 07-21-2023 End: 07-21-2023 ambulatory LUIS RUBY Not Available Start: 07-20-2023 End: 07-20-2023 Admission to same day surgery center Víctor BRADY [facility] Start: 07-20-2023 End: 07-20-2023 ambulatory Víctor BRADY Facility[facility] Start: 07-14-2023 End: 07-14-2023 ambulatory Víctor BRADY Facility:[facility] Start: 07-14-2023 End: 07-14-2023 Patient encounter procedure Víctor BRADY [facility] Start: 07-06-2023 End: 07-06-2023 Emergency department patient visit MD Archie Hooks Work Phone: [facility]Emergency Room Work Phone: Start: 07-04-2023 End: 07-04-2023 ambulatory Víctor BRADY Facility:[facility] Start: 07-04-2023 End: 07-04-2023 Patient encounter procedure Víctor BRADY [facility] Start: 06-28-2023 End: 06-28-2023 Emergency department patient visit MD Archie Hooks Work Phone: [facility] Work Phone: Start: 06-23-2023 ambulatory Víctor MIAN Facility:[facility] Start: 06-23-2023 End: 06-23-2023 Emergency department patient visit MD Archie Hooks Work Phone: [facility] Work Phone: Start: 06-01-2023 End: 06-01-2023 ambulatory [facility] Start: 06-01-2023 End: 06-01-2023 Office outpatient visit 25 minutes [facility] Work Phone: [facility] Comment on above: Essential hypertensi on, benign; Mixed hyperlipidemia; Type 2 diabetes mellitus without complication, unspecified whether terminal superintendent insulin use (CMS/HCC); Other chest pain; Palpitations; PAF (paroxysmal atrial fibrillation) (CMS/HCC) Start: 05-01-2023 End: 05-01-2023 Admission to same day surgery center MD Archie Hooks Work Phone: [facility]-Pressure Supervisor Work Phone: Start: 05-01-2023 End: 05-01-2023 ambulatory MD Archie Hooks Work Phone: [facility] Work Phone: Start: 04-27-2023 Chart Update Archie Capone er Work Phone: [facility] 250 DO Work Phone: Start: 04-27-2023 End: 04-27-2023 ambulatory MD Archie Hooks Work Phone: [facility] Work Phone: Start: 04-27-2023 End: 04-27-2023 Patient encounter procedure MD Archie Hooks Work Phone: [facility] [facility] Work Phone: Start: 04-26-2023 ambulatory López Zuniga y: Start: 04-04-2023 Chart Update Archie Capone er Work Phone: [facility] 250 DO Work Phone: Start: 04-01-2023 ambulatory LEONEL SANDOVAL Fa cility:[id number] Start: 03-16-2023 AUDIT Archie Capone er Work Phone: [facility] 250 DO Work Phone: Start: 03-01-2023 End: 03-05-2023 Evaluation and management of inpatient MD Archie Hooks Work Phone: [facility] Work Phone: Start: 02-20-2023 ambulatory Ms. Leonel Sandoval Facility: Start: 02-17-[address] Adelita Mazariegos Facility: Start: 02-07-2023 Chart Update Archie Capone er Work Phone: [facility] 250 DO Work Phone: Start: 02-07-2023 End: 02-07-2023 ambulatory MD Archie Hooks Work Phone: [facility] Work Phone: Start: 02-07-2023 End: 02-07-2023 Patient encounter procedure MD Archie Hooks Work Phone: [facility]-Lab Main [place] Work Phone: Start: 02-06-[address] Archie Hooks Facility:[id number] Start: 01-25-2023 Office outpatient vi sit 25 minutes Archie Hooks Work Phone: -[facility] 250 DO Work Phone: Start: 01-25-2023 ambulatory Ms. Leonel Sandoval Facility: Start: 01-12-2023 ambulatory Ms. Leonel Sandoval Facilit y:[id number] Start: 01-12-2023 End: 01-13-2023 Evaluation and management of inpatient MD Archie Hooks Work Phone: [facility]-[address] [place] [address] Work Phone: Start: 01-12-2023 observation encounter MD Bharath Hooks Work Phone: [facility] Work Phone: Start: 01-12-2023 ambulatory Ms. Leonel Sandoval Facilit y:[id number] Start: 10-13-2022 End: 10-14-[address] ARCHIE HOOKS . Facility:H1 Start: 09-24-2022 End: 09-24-2022 Emergency department patient visit MD Archie Hooks Work Phone: [facility] Work Phone: Start: 08-21-2022 End: 08-21-2022 Emergency department patient visit MD Archie Hooks Work Phone: [facility] Work Phone: Start: 01-28-2022 End: 01-29-[address] ARCHIE HOOKS . Facility: Start: 12-14-2021 End: 12-14-2021 Patient encounter procedure Davey Roberts [facility] Start: 10-19-2021 End: 10-19-2021 Patient encounter procedure Davey Roberts [facility] Start: 11-16-2017 Ambulatory ANTHONY WEAVERBridgette [facility] Procedures Date Procedure Procedure Detail Performing Clinician Start: 07-29-2024 ALL CBC WITH AUTO DIFF Archie Hooks MD Work Phone: Start: 06-11-2024 ALL CBC WITH AUTO DIFF Archie Hooks MD Work Phone: Start: 12-11-2023 ECG 12-LEAD LÓPEZ ROLLINS Start: 12-11-2023 FOLLOW UP IN CARDIOLOGY LÓPEZ GALAN Start: 12-11-2023 Ecg routine ecg w/le ast 12 lds w/i&r López Seals MD Work Phone: Start: 11-17-2023 Lipid 1996 panel - S karla or Plasma López Seals MD Work Phone: Start: 10-30-2023 HOLTER OR EVENT CARD IAC MONITOR LÓPEZ GALAN Start: 10-30-2023 ECG 12-LEAD LÓPEZ ROLLINS Start: 10-27-2023 ECG 12-LEAD LÓPEZ ROLLINS Start: 10-27-2023 FOLLOW UP IN CARDIOLOGY LÓPEZ GALAN Start: 10-27-2023 Ecg routine ecg w/le ast 12 lds w/i&r López Seals MD Work Phone: Start: 07-20-2023 Transurethral cystoscopy Víctor MIAN Start: 07-06-2023 Computed tomography of abdomen and pelvis with contrast MD Archie Hooks Work Phone: Start: 06-28-2023 Diagnostic radiograp hy of abdomen MD Archie Hooks Work Phone: Start: 06-23-2023 Urine culture MD Archie Hooks Work Phone: Start: 06-23-2023 CT of abdomen and pe lvis without contrast MD Archie Hooks Work Phone: Start: 05-01-2023 CL LHC & COR Angio MD Lia Hooks Work Phone: Start: 05-01-2023 MD Archie Hooks Work Phone: Start: 01-12-2023 Plain chest X-ray Ed daigle Jessee Work Phone: Start: 09-24-2022 Plain chest X-ray Ed daigle Jessee Work Phone: Start: 09-24-2022 SARS-CoV-2, Influenz a & RSV (PCR) MD Archie Hooks Work Phone: Start: 08-21-2022 CT of abdomen and pe lvis without contrast MD Archie Hooks Work Phone: Start: 03-30-2021 Antibody screen Comment on above: Performed By: #### T SCR #### [facility] [address] [id number] Start: 09-11-2015 Colonoscopy Luis saavedra MD Work Phone: Start: 07-31-1970 Tonsillectomy and adenoidectomy Davey Roberts Ablation - action (q ualifier value) Davey Roberts Comment on above: 1989 cardiac ablatio n Catheter ablation of arrhythmogenic focus Archie Hooks Work Phone: Cholecystectomy Archie Soriano Hem eyer Work Phone: Colonoscopy Archie Soriano Hemeye r Work Phone: Colonoscopy Víctor BRADY Lithotripsy Archie Valenteye r Work Phone: Nerve graft Davey Roberts Comment on above: 1987 Nerve graft Lef t wrist Operative procedure on wrist Archie Valentealejandra Work Phone: Tonsillectomy Archie Capone er Work Phone: Plan of Treatment Date Care Activity Detail Author Start: 01-29-2032 DTaP/Tdap/Td Vaccine s (5 - Td or Tdap) DTaP/Tdap/Td Vaccines (5 - Td or Tdap) [facility] Start: 09-11-2025 Screening for malign ant neoplasm of colon [facility] Start: 01-14-2025 Glaucoma screening Diabetes: R etinopathy Screening [facility] Start: 11-16-2024 Lipid panel Lipid Panel [facility] Start: 11-16-2024 Urine screening for protein Diabetes: Urine Protein Screening [facility] Start: 10-24-2024 End: 10-24-2024 Patient encounter procedure [facility] 100 Start: 09-30-2024 End: 05-02-2025 Comprehensive metabolic 2000 panel - Serum or Plasma Comprehensive metabolic panel Lab Routine Benign essential hypertension (CMS/HCC) Hypertensive nephropathy (CMS/HCC) Type 2 diabetes mellitus without complication, without long-term current use of insulin (CMS/HCC) Expected: 09/30/2024, Expires: 05/02/2025 [facility] Work Phone: Comment on above: Expected: 09/30/2024 , Expires: 05/02/2025 Start: 09-30-2024 End: 05-02-2025 Hemoglobin A1c/Hemoglobin.total in Blood Hemoglobin A1c Lab Routine Type 2 diabetes mellitus without complication, without long-term current use of insulin (CMS/HCC) Expected: 09/30/2024, Expires: 05/02/2025 [facility] Comment on above: Expected: 09/30/2024 , Expires: 05/02/2025 Start: 09-30-2024 End: 05-02-2025 Lipid 1996 panel - Serum or Plasma Lipid panel Lab Routine Mixed dyslipidemia (CMS/HCC) Expected: 09/30/2024, Expires: 05/02/2025 [facility] Comment on above: Expected: 09/30/2024 , Expires: 05/02/2025 Start: 08-30-2024 End: 08-30-2024 Patient encounter procedure 08/30/2024 10:10 AM EST Office Visit [facility] [address] [place] [address] Felicitas Felipe MD [address] [place] [address] [facility] Start: 08-07-2024 End: 08-07-2024 Patient encounter procedure 08/07/2024 12:20 PM EST Office Visit [facility] [address] [facility] [address] [place] [address] Luis Ruby MD [address] [facility] [address] [place] [id number] [facility] Start: 08-05-2024 End: 08-05-2024 Patient encounter procedure 08/05/2024 1:40 PM EST Office Visit [facility] [address] [facility] [address] [place] [id number] Luis Ruby MD [address] [facility] [address] [place] [id number] [facility] Start: 06-11-2024 End: 06-11-2025 CBC W Auto Differential panel - Blood CBC and differential Lab Routine Diverticulitis of large intestine with bleeding, unspecified complication status Bright red blood per rectum Expected: 06/11/2024 (Approximate), Expires: 06/11/2025 [facility] Work Phone: Comment on above: Expected: 06/11/2024 (Approximate), Expires: 06/11/2025 Start: 05-02-2024 End: 05-02-2024 Patient encounter procedure [facility] Comment on above: Benign essential hyp ertension (CMS/HCC); Hypertensive nephropathy (CMS/HCC); Microalbuminuria; Type 2 diabetes mellitus without complication, without long-term current use of insulin (CMS/HCC); Mixed dyslipidemia ([facility]); Polypharmacy; Nicotine use disorder Start: 04-25-2024 End: 04-25-2024 Patient encounter procedure 04/25/2024 2:00 PM EDT Office Visit [facility] [address] [facility] [address] [place] [address] Luis Ruby MD [address] [facility] [address] [id number] Arrived [facility] Comment on above: Arrived Start: 03-31-2024 Influenza vaccination [facility] Start: 02-16-2024 Hemoglobin A1c measurement Diabetes: Hemoglobin A1C [facility] Start: 12-11-2023 End: 12-11-2023 Patient encounter procedure 12/11/2023 10:50 AM EDT Office Visit [address] [place] [address] López Seals MD [address] [facility] 2, [facility] [address] [place] [address] [facility] Start: 11-22-2023 FUV, Provider: López Galan, Status: Pen, Time: 11:00 AM FUV, Provider: López Galan, Status: Pen, Time: 11:00 AM [facility] 250 DO Work Phone: Start: 11-22-2023 End: 11-22-2023 Patient encounter procedure 11/22/2023 11:00 AM EDT Office Visit [facility] [address] [facility] [address] [place] [address] López Galan DO [address] [facility] 2, [facility] [address] [place] [address] [facility] Start: 10-30-2023 End: 10-26-2024 ECG 12 [facility] Work Phone: Comment on above: Expected: 10/30/2023 (Approximate), Expires: 10/26/2024 Start: 10-30-2023 End: 10-30-2023 Professional / ancillary services management [facility] Start: 10-27-2023 End: 10-27-2023 Patient encounter procedure 10/27/2023 2:30 PM EDT Office Visit [facility] [address] [place] [id number] López Seals MD [address] [place] [address] [facility] Start: 10-27-2023 End: 10-26-2024 Holter monitor study Holter Or Event Director Of Archives Cardiac Services Routine Palpitations PAF (paroxysmal atrial fibrillation) (CMS/HCC) Expected: 10/27/2023, Expires: 10/26/2024 [facility] Service Area Work Phone: Comment on above: Expected: 10/27/2023 , Expires: 10/26/2024 Start: 06-23-2023 Bacteria identified in Urine by Culture [facility] Start: 06-23-2023 CT Abdomen and Pelvi s WO contrast [facility] Start: 06-23-2023 CT of abdomen and pelvis without contrast CT abdomen pelvis wo con [facility] Start: 05-01-2023 [facility], Provider: López Galan, Status: Pen, Time: 10:00 AM [facility], Provider: López Galan, Status: Pen, Time: 10:00 AM [facility] 250 DO Work Phone: Start: 05-01-2023 [facility] Start: 03-31-2023 COVID-19 Vaccine () COVID-19 Vaccine ( season) [facility] Start: 03-31-2023 Influenza vaccination Influenza Vacc ine (#1) [facility] Start: 03-05-2023 [facility] Start: 03-01-2023 Hospital admission [facility] Start: 02-20-2023 FUV, Provider: Leonel Alvarez, Status: Pen, Time: 8:00 AM FUV, Provider: Leonel Alvarez, Status: Pen, Time: 8:00 AM [facility] 250 DO Work Phone: Start: 02-07-2023 HOLTER 48, Provider: LILIA ROB SYSTEM CONFIGURATION SPECIALIST 1,[id number], Status: Pen, Time: 8:30 AM HOLTER 48, Provider: LILIA ROB SYSTEM CONFIGURATION SPECIALIST 1,[id number], Status: Pen, Time: 8:30 AM [facility] 250 DO Work Phone: Start: 02-06-2023 STRESS NUC, Provider : LUIS EDUARDO HHVI NUCLEAR 01,[id number], Status: Pen, Time: 8:00 AM STRESS NUC, Provider: LUIS EDUARDO HHVI NUCLEAR 01,[id number], Status: Pen, Time: 8:00 AM [facility] 250 DO Work Phone: Start: 01-13-2023 [facility] Start: 01-12-2023 [facility] Start: 01-12-2023 Sleep disorder assessment [facility] Start: 01-12-2023 Referral to maintenance of way superintendent [facility] Start: 01-12-2023 Hospital admission [facility] Start: 01-12-2023 [facility] Start: 01-12-2023 [facility] Start: 2022 Hepatitis B Vaccines (1 of 3 - Risk 3-dose series) Hepatitis B Vaccines (1 of 3 - Risk 3-dose series) [facility] Start: 2022 RSV patient s and/or patients aged 60+ years (1 - 1-dose 60+ series) RSV patients and/or patients aged 60+ years (1 - 1-dose 60+ series) [facility] Start: 10-03-2021 COVID-19 Vaccine (2 - Pfizer series) COVID-19 Vaccine (2 - Pfizer series) [facility] Start: 2016 Pneumococcal Vaccine : Pediatrics (0 to 5 Years) and At-Risk Patients (6 to 64 Years) (2 - PCV) Pneumococcal Vaccine: Pediatrics (0 to 5 Years) and At-Risk Patients (6 to 64 Years) (2 - PCV) [facility] Start: 2016 Pneumococcal Vaccine : Pediatrics (0 to 5 Years) and At-Risk Patients (6 to 64 Years) (2 of 2 - PCV) Pneumococcal Vaccine: Pediatrics (0 to 5 Years) and At-Risk Patients (6 to 64 Years) (2 of 2 - PCV) [facility] Start: 2012 Zoster Vaccines (1 o f 2) Zoster Vaccines (1 of 2) [facility] Start: 1981 Urine screening for protein Diabetes: Urine Protein Screening [facility] Start: 1980 Hepatitis C screening Hepatitis C Sc reening [facility] Start: 1972 Diabetic foot examination Diabetes: Foot Exam [facility] Start: 1972 Glaucoma screening Diabetes: R etinopathy Screening [facility] Start: 1963 MMR Vaccines (1 of 1 - Standard series) MMR Vaccines (1 of 1 - Standard series) [facility] Start: 1962 Hemoglobin A1c measurement Diabetes: Hemoglobin A1C [facility] Start: 1962 HIV screening HIV Screening [facility] Start: 1962 Lipid panel Lipid Panel [facility] Start: 1962 Screening for malign ant neoplasm of colon [facility] Start: 1962 Yearly Adult Physical Yearly Adult P hysical [facility] Glucose measurement estimated from glycated hemoglobin [facility] Hemoglobin A1c/Hemoglobin.total in Blood [facility] Patient Education [facility] Work Phone: Patient referral [facility] Work Phone: Immunizations Immunization Date Immunization Notes Care Provider Annika prescott 07-04-2022 Influenza, injectabl e, Madin Blanca Canine Kidney, preservative free, quadrivalent Archie Hooks Work Phone: [place] [address] DO Work Phone: 07-04-2022 influenza virus vacc ine, unspecified formulation López Galan DO Work Phone: [facility] Work Phone: 01-28-2022 diphtheria, tetanus toxoids and pertussis vaccine Archie Hooks Work Phone: [place] [address] DO Work Phone: 08-08-2021 Pfizer-BioNTech COVI D-19 Vacc 30 MCG/0.3ML Intramuscular Suspension Archie Hooks Work Phone: [facility] 05-12-2021 seasonal influenza, intradermal, preservative free Luis Ruby MD Work Phone: [facility] 02-25-2021 tetanus toxoid, redu bill diphtheria toxoid, and acellular pertussis vaccine, adsorbed MD Archie Hooks Work Phone: [facility] 08-31-2018 influenza, injectabl e, quadrivalent, preservative free Archie Hooks Work Phone: [facility] 08-03-2017 influenza, high dose seasonal, preservative-free Luis Ruby MD Work Phone: [facility] 08-03-2017 influenza, injectabl e, quadrivalent, preservative free Archie Hooks Work Phone: [place] [address] DO Work Phone: 04-30-2017 influenza, seasonal, injectable MD Archie Hooks Work Phone: [facility] 02-01-2017 hepatitis A vaccine, adult dosage Archie Hooks Work Phone: [place] [address] DO Work Phone: 12-06-2016 tetanus and diphther ia toxoids, adsorbed, preservative free, for adult use (5 Lf of tetanus toxoid and 2 Lf of diphtheria toxoid) Archie Hooks Work Phone: [facility] 250 DO Work Phone: 08-04-2016 hepatitis A vaccine, adult dosage Archie Hooks Work Phone: [facility] 250 DO Work Phone: 05-16-2016 influenza, injectabl e, quadrivalent, preservative free Luis Ruby MD Work Phone: [facility] 2015 pneumococcal polysaccharide vaccine, 23 valent Archie Soriano [employer] Work Phone: [facility] 250 DO Work Phone: 06-02-2015 tetanus toxoid, redu bill diphtheria toxoid, and acellular pertussis vaccine, adsorbed Archie Soriano [employer] Work Phone: [facility] 250 DO Work Phone: 05-11-2015 influenza, injectabl e, quadrivalent, preservative free Luis Ruby MD Work Phone: [facility] 06-06-2005 hepatitis B vaccine, pediatric or pediatric/adolescent dosage Archie Soriano [employer] Work Phone: [facility] 250 DO Work Phone: 01-08-2005 hepatitis B vaccine, pediatric or pediatric/adolescent dosage Archie Soriano [employer] Work Phone: [facility] 250 DO Work Phone: 11-10-2004 hepatitis B vaccine, pediatric or pediatric/adolescent dosage Archie Soriano [employer] Work Phone: [facility] 250 DO Work Phone: Payers Date Payer Category Payer [facility] Health Insurance [facility] [id number] 2023 Unknown 2023 Unknown [id number] 2023 Unknown [id number] 2023 Self-pay [id number] 2022 Medicaid [employer] [id number] 2022-Present [address] [address] [place] [address] [id number] 1962 Unknown [id number] 2.16840.1.354253.3.579.2. 593 1962 Unknown [id number] 2.16840.1.820926.3.579.2. 593 1962 Unknown [id number] 2.16840.1.695146.3.579.2. 1068 1962 Unknown [id number] 2.16840.1.485981.3.579.2. 1068 1962 Unknown [id number] 2.16840.1.750067.3.579.2. 356 1962 Unknown [id number] 2.16.840.1.593024.3.579.2. 356 1962 Unknown [id number] 2.16.840.1.321949.3.579.2. 356 1962 Unknown [id number] 2.16.840.1.077432.3.579.2. 356 1962 Unknown [id number] 2.16840.1.609244.3.579.2. 356 1962 Unknown [id number] 2.16840.1.873157.3.579.2. 356 1962 Unknown [id number] 2.16.840.1.542442.3.579.2. 356 1962 Unknown [id number] 2.16.840.1.636708.3.579.2. 1244 1962 Unknown [id number] 2.16.840.1.052780.3.579.2. 1244 1962 Unknown [id number] 2.16.840.1.949121.3.579.2. 1244 1962 Unknown [id number] 2.16.840.1.181667.3.579.2. 1244 1962 Unknown [id number] 2.16.840.1.459191.3.579.2. 1244 1962 Unknown [id number] 2.16.840.1.346108.3.579.2. 727 1962 Unknown [id number] 2.16.840.1.700418.3.579.2. 727 1962 Unknown [id number] 2.16.840.1.615218.3.579.2. 727 1962 Unknown [id number] 2.16.840.1.925239.3.579.2. 727 1962 Unknown [id number] 2.16.840.1.657686.3.579.2. 727 1962 Unknown [id number] 2.16.840.1.900071.3.579.2. 727 1962 Unknown [id number] 2.16.840.1.639147.3.579.2. 727 1962 Unknown [id number] 2.16.840.1.476049.3.579.2. 1259 1962 Unknown [id number] 2.16.840.1.627761.3.579.2. 1259 1962 Unknown [id number] 2.16.840.1.555148.3.579.2. 1259 1962 Unknown [id number] 2.16.840.1.187141.3.579.2. 9 1962 Unknown [id number] 2.16.840.1.416416.3.579.2. 1259 1962 Unknown [id number] 2.16.840.1.366583.3.579.2. 9 1962 Unknown [id number] 2.16.840.1.748532.3.579.2. 1259 1959 Medicaid [id number] Unknown [facility] [id number] Unknown [id number] Unknown [id number] Unknown [id number] 2.16.840.1.603924.3.579.2. 531 Social History Date Type Detail Facility Start: 10-19-2021 End: 07-04-2023 Tobacco smoking status Heavy tobacco smoker (finding) [facility] Start: 06-01-2023 End: 06-11-2024 Sex Assigned At Male [facility] Start: 08-21-2022 End: 07-06-2023 Tobacco smoking status NHIS Smoker (finding) [facility] Start: 1960 Sex Assigned At Male F [facility] Start: 06-01-2023 End: 06-11-2024 Occasional caffeine consumption Occasional caffeine consumption [facility] Comment on above: 08/01 ppd; Start: 06-01-2023 End: 05-02-2024 Tobacco smoking status NHIS Smokes tobacco daily [facility] Work Phone: History of tobacco use Cigarette Smoker [facility] Work Phone: Start: 06-01-2023 End: 05-02-2024 Tobacco use and exposure Smokeless tobacco non-user [facility] Work Phone: Start: 06-01-2023 End: 01-24-2024 Alcohol intake Current drinker of alcohol (finding) [facility] Work Phone: Start: 06-01-2023 Alcohol Comment social [facility] Work Phone: Start: 1960 Sex Assigned At Not on file [facility] Work Phone: Start: 05-22-2023 End: 12-11-2023 Exposure to SARS-CoV-2 (event) Not sure [facility] Tobacco smoking status Never [facility] Start: 10-27-2023 End: 06-11-2024 Alcohol intake Ex-drinker (finding) [facility] Work Phone: Within the last year , have you been afraid of your partner or ex-partner? No [facility] Do you belong to any clubs or organizations such as christianity groups, unions, fraternal or athletic groups, or school groups? Yes [facility] Are you now , , , , never or living with a partner? [facility] How often to you hav e a drink containing alcohol? Never [facility] Do you feel stress - tense, restless, nervous, or anxious, or unable to sleep at night because your mind is troubled all the time - these days [OSQ] Only a little [facility] (I/We) worried anthony er (my/our) food would run out before (I/we) got money to buy more. Never true [facility] Start: 01-27-2023 Tobacco Comment 11-20 cigarettes/day [facility] Start: 01-27-2023 Alcohol Comment 10 or more dri nks 2 to 3 times a week. Caffeine more than 4 cups per day [facility] Start: 01-03-2023 Gender identity Identifies as male gender (finding) [facility] Goals Date Patient Goal Desired Activity /State Functional Status Date Assessment Result Facility 01-17-2024 Functional Status N/A [facility] Magi 07-14-2023 Functional Status No [facility] 07-04-2023 Functional Status N/A [facility] Luis Eduardo 03-05-2023 Functional status Patient at Baseline [facility] Work Phone: 01-13-2023 Functional status Patient at Baseline [facility] Work Phone: Mental Status Date Assessment Result Facility 03-05-2023 Cognitive function Cognitive Sta tus Patient at Baseline [facility] Work Phone: 01-13-2023 Cognitive function Cognitive Sta tus Patient at Baseline [facility] Work Phone: Clinical Notes 03-04-2021 to 07-26-2024 Telephone Encounter - Stacey Holbrook NP - 07/26/2024 3:01 PM ESTTelephone Encounter - Stacey Holbrook NP - 07/26/2024 3:01 PM Donal Hooks MD - 06/11/2024 11:00 AM EST Note Date & Type Note Facility 07-26-2024 Telephone encounter Note Sent. OARRS reviewed. [facility] 07-26-2024 Miscellaneous Notes Sent. OARRS reviewed. documented in this encounter [facility] 06-11-2024 History of Present illness Narrative Images from the original note were not included. Patient ID: Troy Rodgers is a 63 y.o. male who presents for: Blood in Stool Patient presents for presents evaluation of blood in stool/ rectal bleeding. Patient has associated symptoms of visible blood: moderate with clots. The patient denies abdominal pain, constipation, and diarrhea. The patient has a known history of: no known risk factors. The patient has had 3 episodes of rectal bleeding. There is not a history of rectal injury. Patient has not had similar episodes of rectal bleeding in the past. Review of Systems Constitutional: Negative for chills and fever. Respiratory: Negative for cough, shortness of breath and wheezing. Cardiovascular: Negative for chest pain and palpitations. Gastrointestinal: Negative for abdominal pain. Genitourinary: Negative for frequency and urgency. Review and previous colonoscopy in 2016 did demonstrate the diverticulosis and he also had a polyp that was a tubular adenoma. Objective The patient is pleasant and in no acute distress. Mucous membranes are moist Both eyes appear grossly normal without obvious lid pathology or icterus. The skin is warm and dry. No jaundice The abdomen is soft and nondistended. Was no tenderness to the right side the once I got into the left lower quadrant he had grimacing tenderness with some guarding. No evidence of rebound. No evidence of hepatosplenomegaly or masses appreciated The patient has good eye contact and speech is clear. Appropriate affect. Visit Vitals Ht 5' 11 Wt 161 lb BMI 22.45 kg/m Smoking Status Every Day BSA 1.91 m Allergies Allergen Reactions Iodinated Contrast Media Other Reaction(s): hives Shellfish-Derived Products Other Reaction(s): hives Current Outpatient Medications on File Prior to Visit Medication Sig Dispense Refill atorvastatin (Lipitor) 80 MG tablet Take 1 tablet (80 mg) by mouth Daily 90 tablet 1 biotin 10 MG capsule take 1 capsule by mouth every morning and BEFORE BEDTIME desvenlafaxine (Pristiq) 50 MG 24 hr tablet Take 1 tablet by mouth Daily gabapentin (Neurontin) 400 MG capsule Take 1 capsule (400 mg) by mouth in the morning and 1 capsule (400 mg) at noon and 1 capsule (400 mg) in the evening and 1 capsule (400 mg) before bedtime. 120 capsule 2 losartan (Cozaar) 100 MG tablet Take 1 tablet (100 mg) by mouth Daily 90 tablet 1 magnesium oxide (Mag-Ox) 400 (240 Mg) MG tablet Take 400 mg by mouth in the morning. sotalol (Betapace) 80 MG tablet Take 80 mg by mouth in the morning and 80 mg in the evening. topiramate 50 MG tablet Take 50 mg by mouth in the morning and 50 mg before bedtime. 180 tablet 3 No current facility-administered medications on file prior to visit. 1. Diverticulitis of large intestine with bleeding, unspecified complication status (Primary) I suspect he has diverticulitis with bleeding. We discussed me trying to treat it versus going to the emergency room and he would prefer to try and treat conservatively. We discussed signs and symptoms of worsening which would require him to go to the emergency room. He seems stable now. We will check a hemoglobin level with a differential on the CBC. He has also been instructed on clear liquids for 24 hours without any carbonation. He then can have a soft diet. I have asked him to get MiraLax which he already has a home and take it twice daily. In prescribing a renewal to their current medication, consideration of the following encompasses moderate decision making; the current prescriptions and supplements, the current allergies and medication intolerances, current medical conditions, and potential drug interactions. In prescribing a new medication consideration of the following encompasses moderate decision making: the current prescriptions and supplements, the current allergies and medication intolerances, the current medical conditions, and potential drug interactions. Risks, benefits, and reason for starting their medication were discussed. The patient was given a chance to ask questions today and all questions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 (Neurontin) 400 mg capsule, Take 1 capsule (400 mg) by mouth 4 times a day., Disp: , Rfl: losartan (Cozaar) 100 mg tablet, Take 1 tablet (100 mg) by mouth once daily in the morning. Take before meals., Disp: , Rfl: magnesium oxide (Mag-Ox) 400 mg (241.3 mg magnesium) tablet, Take 1 tablet (400 mg) by mouth once daily., Disp: 90 tablet, Rfl: 3 sotalol (Betapace) 80 mg tablet, Take 1 tablet (80 mg) by mouth 2 times a day., Disp: 180 tablet, Rfl: 3 topiramate (Topamax) 50 mg tablet, Take 1 tablet (50 mg) by mouth 2 times a day., Disp: , Rfl: traZODone (Desyrel) 50 mg tablet, Take 1 tablet (50 mg) by mouth once daily at bedtime., Disp: , Rfl: Current Facility-Administered Medications: apixaban (Eliquis) tablet 5 mg, 5 mg, oral, BID, López Galan, Assessment/Plan 1. PAF (paroxysmal atrial fibrillation) (Multi) Resolved with low-dose sotalol therapy. QTc acceptable. - Follow Up In Cardiology - sotalol (Betapace) 80 mg tablet; Take 1 tablet (80 mg) by mouth 2 times a day. Dispense: 180 tablet; Refill: 3 - ECG 12 Lead - Follow Up In Cardiology; Future 2. Palpitations Resolved with low-dose sotalol therapy. QTc acceptable. 3. Mixed hyperlipidemia Review of treatment strategy demonstrates good control 4. Essential hypertension, benign Review of treatment strategy demonstrates good control Scribe Attestation By signing my name below, I, Isaías Lin LPN attest that this documentation has been prepared under the direction and in the presence of López Seals MD. Provider Attestation - Scribe documentation All medical record entries made by the Scribe were at my direction and personally dictated by me. I have reviewed the chart and agree that the record accurately reflects my personal performance of the history, physical exam, discussion and plan. documented in this encounter [facility] Work Phone: 12-11-2023 Instructions Ty Griffin MA - 12/11/2023 10:50 AM EDT Please bring all medicines, vitamins, and herbal supplements with you when you come to the office. Prescriptions will not be filled unless you are compliant with your follow up appointments or have a follow up appointment scheduled as per instruction of your physician. Refills should be requested at the time of your visit. documented in this encounter [facility] Work Phone: 10-30-2023 History of Present illness Narrative Patient here for at EKG visit ordered by Dr. Seals due to palpitations and atrial fibulation. Dr. Seals in suite. Patient here due to starting Sotalol 80 mg twice daily. Medication list Updated verbally. Denies cardiac complaints. Discussed with Marta Bennett RN prior to discharge. To Dr. Seals for review. Vitals: 10/30/23 0900 BP: 100/60 BP Location: Right arm Patient Position: Sitting Pulse: 57 Weight: 76.2 kg (168 lb) Height: 1.829 m (6') documented in this encounter [facility] Work Phone: 10-28-2023 Note Sinus bradycardia poor anterior R wave progression QTc 424 ms [facility] 10-27-2023 History of Present illness Narrative Subjective Freedom Rodgers is a 63 y.o. male Chief Complaint Follow-up HPI Review of Systems Cardiovascular: Positive for chest pain and palpitations. Neurological: Positive for dizziness. All other systems reviewed and are negative. Patient believes he is having symptoms, again, that were associated with his atrial fibrillation that ultimately was ablated. We will document the presence or absence of A-fib with an event monitor. In the interim we will, though, treat his symptoms with sotalol therapy. Patient returns in follow-up of problems as noted. He states recently that he has been very symptomatic. He has a personal [employer] device and showed me some strips that suggest possible atrial fibrillation. Differential diagnosis includes atrial fibrillation versus sinus rhythm with PACs. He believes, though, that is causing him a tremendous amount of symptoms. Because of the symptoms we suggested the initiation of sotalol therapy in an effort to maintain sinus rhythm. We will, though, perform an event monitor to see if in fact he is having atrial fibrillation. Episodes occur once or twice a week and hence a 30-day event monitor appears most appropriate. In regards to other matters he appears to be well-controlled. Blood pressure is adequate and lipids are adequately addressed as well. Curiously states that he has chest pain . Detailed questioning demonstrates is not anginal in nature. He can be aerobically very active with no symptoms and then have chest pain at rest. He believes it occurs if or when he is out of rhythm. Because of this we do not feel evaluation of an ischemic cause of chest discomfort is indicated. Vitals: 10/27/23 1435 BP: 124/68 BP Location: Left arm Patient Position: Sitting Pulse: 58 Weight: 76.2 kg (168 lb) Height: 1.829 m (6') EKG done in office today Objective Physical Exam Constitutional: Appearance: Normal appearance. HENT: Nose: Nose normal. Neck: Vascular: No carotid bruit. Cardiovascular: Rate and Rhythm: Normal rate. Pulses: Normal pulses. Heart sounds: Normal heart sounds. Pulmonary: Effort: Pulmonary effort is normal. Abdominal: General: Bowel sounds are normal. Palpations: Abdomen is soft. Musculoskeletal: General: Normal range of motion. Cervical back: Normal range of motion. Right lower leg: No edema. Left lower leg: No edema. Skin: General: Skin is warm and dry. Neurological: General: No focal deficit present. Mental Status: He is alert. Psychiatric: Mood and Affect: Mood normal. Behavior: Behavior normal. Thought Content: Thought content normal. Judgment: Judgment normal. Allergies Iodinated contrast media and Shellfish derived Current Medications Current Outpatient Medications: atorvastatin (Lipitor) 80 mg tablet, Take 1 tablet (80 mg) by mouth once daily in the morning. Take before meals., Disp: , Rfl: biotin 10 mg tablet, Take 1 tablet (10 mg) by mouth 2 times a day., Disp: , Rfl: desvenlafaxine succinate (Pristiq) 25 mg 24 hour tablet, Take 2 tablets (50 mg) by mouth once daily., Disp: , Rfl: gabapentin (Neurontin) 400 mg capsule, Take 1 capsule (400 mg) by mouth 4 times a day., Disp: , Rfl: losartan (Cozaar) 100 mg tablet, Take 1 tablet (100 mg) by mouth once daily in the morning. Take before meals., Disp: , Rfl: magnesium oxide (Mag-Ox) 400 mg (241.3 mg magnesium) tablet, Take 1 tablet (400 mg) by mouth once daily., Disp: 90 tablet, Rfl: 3 topiramate (Topamax) 50 mg tablet, Take 1 tablet (50 mg) by mouth 2 times a day., Disp: , Rfl: traZODone (Desyrel) 50 mg tablet, Take 1 tablet (50 mg) by mouth once daily at bedtime., Disp: , Rfl: apixaban (Eliquis) 5 mg tablet, Take 1 tablet (5 mg) by mouth 2 times a day., Disp: , Rfl: Current Facility-Administered Medications: apixaban (Eliquis) tablet 5 mg, 5 mg, oral, BID, López Galan, Assessment/Plan 1. Essential hypertension, benign Review of treatment strategy demonstrates adequate control - Follow Up In Cardiology 2. Other chest pain I believe his chest pain to be nonanginal based upon my description above - Follow Up In Cardiology 3. Palpitations Palpitations may suggest recurrence of arrhythmia. Event monitor will be performed. - Follow Up In Cardiology 4. PAF (paroxysmal atrial fibrillation) ([facility]) Patient is presently in sinus rhythm. It is unclear whether in fact he is having paroxysms of atrial fibrillation. We will perform an event monitor in this regard 5. BMI 22.0-22.9, adult [place] BMI noted. Congratulated on this accomplishment 6. Smoker Merits of smoking cessation were advocated Scribe Attestation By signing my name below, Mary Garrison LPN , [place] attest that this documentation has been prepared under the direction and in the presence of López Seals MD. Provider Attestation - Scribe documentation All medical record entries made by the Scribe were at my direction and personally dictated by me. I have reviewed the chart and agree that the record accurately reflects my personal performance of the history, physical exam, discussion and plan. documented in this encounter [facility] Work Phone: 10-27-2023 Instructions Marissa Pham LPN - 10/27/2023 2:30 PM EDT Please bring all medicines, vitamins, and herbal supplements with you when you come to the office. Prescriptions will not be filled unless you are compliant with your follow up appointments or have a follow up appointment scheduled as per instruction of your physician. Refills should be requested at the time of your visit. documented in this encounter [facility] Work Phone: 07-20-2023 Hospital Discharge instructions Patient Education 07/20/2023 15:33:31 Cluf-Hgwh-vd Utereroscopy,Lithotripsy, Stone Extraction, Stent Placement(CUSTOM) [facility] [place], [place] Dr. Víctor Mo Post-operative Instructions for Ureteroscopy, Laser Lithotripsy, Stone Extraction and Stent Placement There are no incisions or dressings to be concerned with, as the procedure was performed inside the urinary system. For 24 hours after surgery: No driving or operating machinery Do not make important decisions Do not consume alcohol, sleeping pills Stent Placement You may have a stent which spans the distance between your bladder and your kidney, allowing urine to pass through. It prevents blockage from swelling, kidney stones in ureter (tube connecting the kidney to the bladder), or scars. The presence of the stent may cause: Back or side pain, especially with urination Frequent or urgent urination Bladder pressure or pain Blood in urine You may pass stone debris or small blood clots, which is expected. Drinking plenty of water to dilute the urine may help. If there is a thread coming out of urinary channel, be careful not to accidently pull on this, as it is attached to the stent. The stent will most likely be removed in the office during a short procedure in which a scope is placed into the bladder, the stent is grasped and removed. At other times the stent may need to stay longer, either in preparation for other procedures or for other reasons. If it is to remain terminal superintendent, however, changes of the stent are required (about every 3-4 months). Diet You may resume your normal diet, but you may want to start slowly and avoid spicy food, caffeine, carbonated beverages and alcohol, especially if you have a stent. Your diet and fluid intake may make irritation from the stent worse. Activity You may resume your normal activities, although you should take it easy on the day of the procedure. Minimizing activity may decrease the back discomfort and irritation from the stent, if present. Medications You may resume your home medications unless instructed otherwise. Hold aspirin, ibuprofen, Coumadin (warfarin) and other blood thinners until your office visit (we will discuss when to resume these medications) Take your prescribed medications as directed, including your antibiotics. You may also be given a prescription for pain medicine or medicines to help with the bladder irritation from stent, if present. Things to watch for which would require an Emergency Room Visit (or call 911) (This is not a complete list) Fever over 101.5 degrees, with or without chills Severe bleeding Severe drug reactions with itching, hives, rash, or severe flank pain Tenderness or swelling or the calves, chest pain, or shortness of breath Please call the office to arrange for your post-operative appointment (with XRAY) [phone] 07/19/2023 13:32:52 Post Op Patient Instructions - FT (Custom) (Custom) Follow Up Care 07/13/2023 10:03:38 With:Víctor BRADY Address: [address] [facility] [address] [place] [address]- Business (1) When: Unknown Comments:I was able to retrieve the bladder stones. I did perform the x-ray dye test up the left ureter and actually took a scope and looked up into the tube itself. I found no evidence of left ureteral stones.I did send you some antibiotics to take.We will have to wait for the results to come back regarding what the stone is actually made of which I retrieved from the bladder.Based on that result I would like to see you in 6 months either with a kidney ultrasound or an abdominal x-ray.Have a Dionna Chakraborty. [facility] 07-20-2023 Evaluation + Plan note Diagnostic Tests PendingCalculi Analysis Urinary 07/20/23 [facility] 07-14-2023 Note [id number] [facility] 07-04-2023 Hospital Discharge instructions Patient Education 07/04/2023 14:08:22 Dietary Guidelines to Help Prevent Kidney Stones Dietary Guidelines to Help Prevent Kidney Stones Kidney stones are deposits of minerals and salts that form inside your kidneys. Your risk of developing kidney stones may be greater depending on your diet, your lifestyle, the medicines you take, and whether you have certain medical conditions. Most people can lower their risks of developing kidney stones by following these dietary guidelines. Your dietitian may give you more specific instructions depending on your overall health and the type of kidney stones you tend to develop. What are tips for following this plan? Reading food labels Choose foods with no salt added or low-salt labels. Limit your salt (sodium) intake to less than 1,500 mg a day. Choose foods with calcium for each meal and snack. Try to eat about 300 mg of calcium at each meal. Foods that contain 200 500 mg of calcium a serving include: ?8 oz (237 mL) of milk, qjdiebf-nfvtdgsmrfmi-ahogi milk, and calcium-fortifiedfruit juice. Calcium-fortified means that calcium has been added to these drinks. ?8 oz (237 mL) of kefir, yogurt, and soy yogurt. ?4 oz (114 g) of tofu. ?1 oz (28 g) of cheese. ?1 cup (150 g) of dried figs. ?1 cup (91 g) of cooked broccoli. ?One 3 oz (85 g) can of sardines or mackerel. Most people need 1,000 1,500 mg of calcium a day. Talk to your dietitian about how much calcium is recommended for you. Shopping Buy plenty of fresh fruits and vegetables. Most people do not need to avoid fruits and vegetables, even if these foods contain nutrients that may contribute to kidney stones. When shopping for convenience foods, choose: ?Whole pieces of fruit. ?Pre-made salads with dressing on the side. ?Low-fat fruit and yogurt smoothies. Avoid buying frozen meals or prepared deli foods. These can be high in sodium. Look for foods with live cultures, such as yogurt and kefir. Choose high-fiber grains, such as whole-wheat breads, oat bran, and wheat cereals. Cooking Do not add salt to food when cooking. Place a salt shaker on the table and allow each person to add their own salt to taste. Use vegetable protein, such as beans, textured vegetable protein (TVP), or tofu, instead of meat in pasta, casseroles, and soups. Meal planning Eat less salt, if told by your dietitian. To do this: ?Avoid eating processed or pre-made food. ?Avoid eating fast food. Eat less animal protein, including cheese, meat, poultry, or fish, if told by your dietitian. To do this: ?Limit the number of times you have meat, poultry, fish, or cheese each week. Eat a diet free of meat at least 2 days a week. ?Eat only one serving each day of meat, poultry, fish, or seafood. ?When you prepare animal proteins, cut pieces into small portion sizes. For most meat and fish, one serving is about the size of the palm of your hand. Eat at least five servings of fresh fruits and vegetables each day. To do this: ?Keep fruits and vegetables on hand for snacks. ?Eat one piece of fruit or a handful of berries with breakfast. ?Have a salad and fruit at lunch. ?Have two kinds of vegetables at dinner. You may be told to limit foods that are high in a substance called oxalate. These include: ?Spinach (cooked), rhubarb, beets, sweet potatoes, and Bermudian chard. ?Peanuts. ?Potato chips, macanese fries, and baked potatoes with skin on. ?Nuts and nut products. ?Chocolate. If you regularly take a diuretic medicine, make sure to eat at least 1 or 2 servings of fruits or vegetables that are high in potassium each day. These include: ?Avocado. ?Banana. ?Carver, prune, carrot, or tomato juice. ?Baked potato. ?Cabbage. ?Beans and split peas. Lifestyle Drink enough fluid to keep your urine pale yellow. This is the most important thing you can do. Spread your fluid intake throughout the day. If you drink alcohol: ?Limit how much you have to: ?0 1 drink a day for women who are not . ?0 2 drinks a day for men. ?Know how much alcohol is in your drink. In the [place] one drink equals one 12 oz bottle of beer (355 mL), one 5 oz glass of wine (148 mL), or one 1 oz glass of hard liquor (44 mL). Lose weight if told by your health care provider. Work with your dietitian to find an eating plan and weight loss strategies that work best for you. General information Talk to your health care provider and dietitian about taking daily supplements. Depending on your health and the cause of your kidney stones, you may be told: ?Do not take high-dose supplements of vitamin C (1,000 mg a day or more). ?To take a calcium supplement. ?To take a daily probiotic supplement. ?To take other supplements such as magnesium, fish oil, or vitamin B6. Take kete-jej-bqtusgz and prescription medicines only as told by your health care provider. These include supplements. What foods should I limit? Limit your intake of the following foods, or eat them as told by your dietitian. Vegetables Spinach. Rhubarb. Beets. Canned vegetables. Pickles. Olives. Baked potatoes with skin. Grains Wheat bran. Baked goods. Salted crackers. Cereals high in sugar. Meats and other proteins Nuts. Nut butters. Large portions of meat, poultry, or fish. Salted, precooked, or cured meats, such as sausages, meat loaves, and hot dogs. Dairy Cheeses. Beverages Regular soft drinks. Regular vegetable juice. Seasonings and condiments Seasoning blends with salt. Salad dressings. Soy sauce. Ketchup. Barbecue sauce. Other foods Canned soups. Canned pasta sauce. Casseroles. Pizza. Lasagna. Frozen meals. Potato chips. Kuwaiti fries. The items listed above may not be a complete list of foods and beverages you should limit. Contact a dietitian for more information. What foods should I avoid? Talk to your dietitian about specific foods you should avoid based on the type of kidney stones you have and your overall health. Fruits Grapefruit. The item listed above may not be a complete list of foods and beverages you should avoid. Contact a dietitian for more information. Summary Kidney stones are deposits of minerals and salts that form inside your kidneys. You can lower your risk of kidney stones by making changes to your diet. The most important thing you can do is drink enough fluid. Drink enough fluid to keep your urine pale yellow. Talk to your dietitian about how much calcium you should have each day, and eat less salt and animal protein as told by your dietitian. This information is not intended to replace advice given to you by your health care provider. Make sure you discuss any questions you have with your health care provider. Document Revised: 10/27/2022 Document Reviewed: 10/27/2022 [employer] Patient Education 2022 [employer]. Follow Up Care 06/23/2023 09:26:12 With:MIAN MELENDEZ, Víctor Gonzáles, URL Address: [address] [place], [place] [id number]- When: Unknown Comments:Pending Imaging results. [facility] 06-01-2023 History of Present illness Narrative Subjective Freedom Rodgers is a 62 y.o. male Chief Complaint Follow-up; Post-Cath 62-year-old gentleman returns following diagnostic heart catheterization. He was originally referred by nurse clinician for abnormal calcium score and stress imaging. Cardiac catheterization revealed normal coronary arteries and normal left ventricular function. Patient has a history of atrial ablation with Dr. Arenas in the past, previously has seen Dr. Seals in the past for arrhythmia. 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 He did have episodes of palpitations; his cardia hal that is reviewed recorded irregular rhythm with what appears to be episodes of atrial flutter and atrial fibrillation at a controlled rate at least by my review Recommendations: Return to electrophysiology initially with Dr. Seals, reinitiate Eliquis 5 mg twice daily (discontinue aspirin); there are no further interventional cardiac issues to address at this time Review of Systems Cardiovascular: Positive for chest pain, dyspnea on exertion and palpitations. Visit Vitals BP 102/64 (BP Location: Left arm, Patient Position: Sitting) Pulse 62 Ht 1.854 m (6' 1 ) Wt 77.6 kg (171 lb) BMI 22.56 kg/m Smoking Status Every Day BSA 2 m Objective Physical Exam Constitutional: Appearance: Normal appearance. He is normal weight. HENT: Nose: Nose normal. Neck: Vascular: No carotid bruit. Cardiovascular: Rate and Rhythm: Normal rate. Rhythm irregular. Pulses: Normal pulses. Heart sounds: Normal heart sounds. Pulmonary: Effort: Pulmonary effort is normal. Abdominal: General: Bowel sounds are normal. Palpations: Abdomen is soft. Genitourinary: Rectum: Normal. Musculoskeletal: General: Normal range of motion. Cervical back: Normal range of motion. Right lower leg: No edema. Left lower leg: No edema. Skin: General: Skin is warm and dry. Neurological: General: No focal deficit present. Mental Status: He is alert. Psychiatric: Mood and Affect: Mood normal. Behavior: Behavior normal. Thought Content: Thought content normal. Judgment: Judgment normal. Current Medications Current Outpatient Medications: atorvastatin (Lipitor) 80 mg tablet, Take 1 tablet (80 mg) by mouth once daily in the morning. Take before meals., Disp: , Rfl: biotin 10 mg tablet, Take 1 tablet (10 mg) by mouth once daily., Disp: , Rfl: Complete Allergy Medicine 25 mg tablet, Take 1 tablet (25 mg) by mouth as needed at bedtime., Disp: , Rfl: desvenlafaxine succinate (Pristiq) 25 mg 24 hour tablet, Take 1 tablet (25 mg) by mouth once daily., Disp: , Rfl: gabapentin (Neurontin) 400 mg capsule, Take 1 capsule (400 mg) by mouth 3 times a day., Disp: , Rfl: losartan (Cozaar) 100 mg tablet, Take 1 tablet (100 mg) by mouth once daily in the morning. Take before meals., Disp: , Rfl: magnesium oxide (Mag-Ox) 400 mg (241.3 mg magnesium) tablet, Take 1 tablet (400 mg) by mouth once daily., Disp: , Rfl: metoprolol succinate XL (Toprol-XL) 50 mg 24 hr tablet, Take 1 tablet (50 mg) by mouth once daily in the morning. Take before meals., Disp: , Rfl: nitroglycerin (Nitrodur) 0.2 mg/hr patch, Place 1 patch on the skin once daily., Disp: , Rfl: topiramate (Topamax) 50 mg tablet, Take 1 tablet (50 mg) by mouth 2 times a day., Disp: , Rfl: Assessment/Plan 1. Essential hypertension, benign 2. Mixed hyperlipidemia 3. Type 2 diabetes mellitus without complication, unspecified whether half-way insulin use ([facility]) 4. Other chest pain 5. Palpitations 6. PAF (paroxysmal atrial fibrillation) ([facility]) documented in this encounter [facility] Work Phone: 06-01-2023 Instructions Ty Griffin MA - 06/01/2023 10:00 AM EDT Please bring all medicines, vitamins, and herbal supplements with you when you come to the office. Prescriptions will not be filled unless you are compliant with your follow up appointments or have a follow up appointment scheduled as per instruction of your physician. Refills should be requested at the time of your visit. documented in this encounter [facility] Work Phone: 05-01-2023 Discharge summary Note Date/Time May 01, 2023 10:29am [facility] [address] [place] [address] Discharge Summary Signed Patient: Freedom Rodgers MR#: [id number] : 1960 Acct:[id number] Age/Sex: 62 / M Adm Date: 3 Loc: Room: Attending Dr: Myriam Galan DO Copies to: MD Myriam Bolden DO~ Providers Date of Discharge: 05/01/23 Discharging Provider: Myriam Galan Primary Care Provider: Archie Hooks Discharge Diagnosis (1) Chest pain: (2) Hypertension: (3) Alcohol use disorder: (4) History of cardiac radiofrequency ablation (RFA): (5) Abnormal cardiac CT angiography: Final Diagnosis Final Discharge Diagnosis: Chest pain syndrome History of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 body acute or subacute fracture, bone marrow or posterior element edema. Minimal anterior wedging at T11 and T12, nonacute. Normal thoracic spinal cord and conus medullaris. T1/2 - T5/6: Normal. T6/7: Mild disc space loss. Small right paracentral 2 x 4 mm disc herniation. No stenosis. T7/8: Minimal disc space loss. Right paracentral 5 x 5 mm disc herniation occupies the anterior CSF space, mildly impresses upon the spinal cord. No significant stenosis. T8/9: Small central 3 x 5 mm disc herniation. No significant spinal canal or neural foraminal stenosis. This does not impress upon the spinal cord. T9/10 -T10/11: Mild disc space loss. No disc herniation, spinal canal or neural foraminal stenosis. T11/12: Moderate disc space loss. No disc herniation, spinal canal or neural foraminal stenosis. T12/L1: Normal. No abnormal spinal cord or paravertebral enhancement following contrast administration. IMPRESSION: Central, paracentral subcentimeter disc herniations (T6/7 through T8/9), questionable significance given this history and the absence of significant spinal canal or neural foraminal stenosis. Report reported and signed by Freedom Amin on 11/01/2021 [id number]28-2022 NotePROCEDURE: GE Signa HDXT 1.5 Sagittal T1, T2, STIR and axial T1 and T2 contiguous and cone down images through the cervical spine were performed with and without contrast administration. HISTORY: Fall February 25, 2021, neck pain, stiffness FINDINGS: No prior plain films available. Normal cervical vertebral body height and alignment. No bone marrow edema or fracture. No soft tissue inflammatory changes or abnormal enhancement. Normal posterior fossa contents and spinal cord. C1-2: Normal. C2-3: Normal disc volume. 1-2 mm retrolisthesis. No spinal canal stenosis. C3-4: Normal disc volume. Small bilateral disc osteophyte complexes with mild uncovertebral hypertrophy. Severe bilateral entry and mid neuroforaminal stenosis. C4-5: Normal disc volume. 1 mm retrolisthesis. Broad base disc osteophyte complex , uncovertebral hypertrophy and facet arthropathy. Minimal canal stenosis (AP diameter 8mm). Moderate left, severe right entry and mid neuroforaminal stenosis. C5-6: Normal disc volume. Small disc osteophyte complexes, uncovertebral hypertrophy contributes to moderate bilateral neuroforaminal stenosis right greater than left. C6-7: Normal disc volume. Right-sided uncovertebral hypertrophy contributes to mild to moderate right entry neuroforaminal stenosis. No spinal canal or left neuroforaminal stenosis. C7-T1 through T2-3: Normal. IMPRESSION: 1. Multilevel stenosis, greatest involvement (severe) bilateral C3-C4. Report reported and signed by Freedom Amin on 09/27/2021 [id number] [place]02-11-2022 NoteHISTORY: Low back pain, bilateral numbness, tingling PROCEDURE: GE Signa HDXT 1.5. Sagittal T1, T2, STIR and axial T1 and T2 contiguous and cone down images through the lumbar spine were performed without contrast administration. Comparison is made with the prior examination of September 08, 2021. FINDINGS: Normal lumbar vertebral body height and alignment. No bone marrow edema, vertebral body or pedicle fracture. No significant soft tissue inflammation. Normal conus medullaris and filum terminale. T12/L1: Normal. L1/2: Normal disc volume. Mild disc bulging. No disc herniation, spinal canal or neural foraminal stenosis. Mild facet arthropathy. L2/3: Normal disc volume. Very minimal disc bulging within both neural foraminal zones. Mild facet arthropathy. No disc herniation, spinal canal or neural foraminal stenosis. L3/4: Normal disc volume. Minimal central disc bulging. Central annular tear. No disc herniation, spinal canal or neural foraminal stenosis. Mild facet arthropathy. L4/5: Mild disc space loss. Mild neural foraminal zone disc bulging. Bilateral facet arthropathy. No spinal canal or neural foraminal stenosis. L5/S1: Moderate disc space loss (which may reflect transitional segmentation). Bilateral facet arthropathy. No disc herniation or spinal canal stenosis. Minimal right exit neural foraminal stenosis. 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 No erosive changes or neighboring edema. IMPRESSION: No significant disc herniation, spinal canal or neural foraminal stenosis. Report reported and signed by Freedom Amin on 09/10/2021 1633[facility]12-30-2021 NoteEducation (EPSMN) FREEDOM RODGERS ([id number]) 1960 M Date Time Provider Department 07/29/21 ROXANA DOWNING EPSMN Reason for Visit: Patient Education [91] Visit Notes: >> Yessenia Villavicencio RN [facility] Jul 29, 2021 2:38 PM Status: Signed THE FOLLOWING WAS EVALUATED Motivation To Learn: Interested Family/Significant Other Support: Unable to assess - Family not present Cognitive Ability: Alert and oriented Patient Learns Best By: Individual Instruction The Following Influencing Factors Were Barriers To This Education Session: None The Following Physical Limitations Were Barriers To This Education Session: None Instruction Provided To: Patient Procedure: Loop Recorder Implant Pre-procedure information reviewed: Patient ID verified Procedure verified Physician verified Explanation of procedure Sedation level during procedure medication instructions from EP lab request n/a Travel instructions/restrictions Scheduling information Possible same day discharge versus overnight hospital stay Check out time Family waiting area Physician contact with family after procedure Post Procedure Expectations reviewed: Inpatient hospital stay Post procedure antiarrhythmics and anticoagulation will be discussed with Physician, nurse practitioner or Physician vector control assistant upon discharge Instructions for transmitting EKG to Monitoring Center 3 month follow up instructions Contact number for information and questions Patient Evaluation: Verbalizes understanding Follow Up Plan: Follow up as directed by . Supplemental Material Given: Written Material Instructed By Yessenia Villavicencio RN. In Department of CARDIOLOGY. During your visit today, we recorded the following information about you: Allergies As of Date: 07/29/2021 Noted Allergy Reaction IODINATED CONTRAST MEDIA 09/08/2004 4 - Hives Date Reviewed: 05/26/2021 Reviewed by: Connor Morton APRN.SALES MANAGER - Fully Assessed Prescriptions as of 07/29/2021 - metoprolol succinate ER (TOPROL XL) 25 mg 24 hr tablet Take 1 tablet by mouth twice daily. - losartan-hydroCHLOROthiazide (HYZAAR) 100-25 mg per tablet Take 1 tablet by mouth once daily. Facility-Administered Medications as of 07/29/2021 - perflutren lipid microspheres 1.3 mL in NaCl (PF) 0.9% 10 mL injection (DEFINITY) - sodium chloride 0.9 % (flush) 10 mL (BD POSIFLUSH) Encounter Status:Closed by YESSENIA VILLAVICENCIO RN on 07/29/21[facility]10-27-2021 NoteEducation (CARDMN) ANA MARIAFREEDOM ([id number]) 1960 M Date Time Provider Department 05/26/21 2:00 PM ARRHYTHMIA MONITORING LAB CARDMN Reason for Visit: Event [921] Cmt: ZIO PATCH Progress Notes: Keisha Sandoval Ma 05/26/2021 2:00 PM Signed EVENT MONITOR DISPOSABLE PATCH INSTRUCTIONS Patient Name: Freedom Rodgers Clinic Number: [id number] Skin prepped and cleansed with alcohol Patch secured to prepped area Monitor Activated Serial #: [id number] Patient Instructed: 1.) Prescribed order timeframe 2.) Bathing guidelines 3.) Usage of event button and diary documentation 4.) Return of monitor at the end of prescribed order 5.) Call with problems [phone] or [phone]. [phone] Patient expresses a good understanding of instructions Keisha Sandoval Ma Primary Visit Diagnosis:Wide-complex tachycardia (HCC) [I47.2] During your visit today, we recorded the following information about you: Allergies As of Date: 05/26/2021 Noted Allergy Reaction IODINATED CONTRAST MEDIA 09/08/2004 4 - Hives Date Reviewed: 05/26/2021 Reviewed by: Connor Morton APRN.SALES MANAGER - Fully Assessed Prescriptions as of 05/26/2021 - losartan-hydroCHLOROthiazide (HYZAAR) 100-25 mg per tablet Take 1 tablet by mouth once daily. Facility-Administered Medications as of 05/26/2021 - perflutren lipid microspheres 1.3 mL in NaCl (PF) 0.9% 10 mL injection (DEFINITY) - sodium chloride 0.9 % (flush) 10 mL (BD POSIFLUSH) Encounter Status:Closed by KEISHA SANDOVAL MA on 05/26/21[facility]10-27-2021 NoteHNO ID: [id number] Author: Keisha Sandoval Ma Service: ? Author Type: ? Type: Progress Notes Filed: 05/26/2021 2:00 PM Note Text: EVENT MONITOR DISPOSABLE PATCH INSTRUCTIONS Patient Name: Freedom Rodgers [facility] Number: [id number] Skin prepped and cleansed with alcohol Patch secured to prepped area Monitor Activated Serial #: [id number] Patient Instructed: 1.) Prescribed order timeframe 2.) Bathing guidelines 3.) Usage of event button and diary documentation 4.) Return of monitor at the end of prescribed order 5.) Call with problems [phone] or [phone]. [phone] Patient expresses a good understanding of instructions Keisha Sandoval [facility]10-27-2021 NoteHNO ID: [id number] Author: Connor Morton APRN.CNP Service: ? Author Type: Nurse Practitioner Type: Progress Notes Filed: 05/26/2021 1:33 PM Note Text: [facility] [place] Melissa Medina Department of Cardiovascular Medicine SECTION OF CARDIAC PACING and ELECTROPHYSIOLOGY OUTPATIENT VISIT DATE May 26, 2021 OUTPATIENT VISIT TYPE ESTABLISHED PRIMARY CARE PHYSICIAN: Archie Hooks MD [address] [place] [address] REFERRING PHYSICIAN: Roxana Downing [address] [facility] [id number] CHIEF COMPLAINT: F/u syncope s/p AVNRT ablation HISTORY OF PRESENT ILLNESS: Mr. Rodgers is a 60 year old male who presents today for follow-up visit s/p EPS with AVNRT ablation Pt of Dr Downing, newly est in office on 03/04/2021. PMH of syncope with head injury, HTN hx of alcohol abuse, WCT and family hx of SCD. He was thought to have syncope related to VT with hx of WCT in the past. He has normal EF and some septal hypertrophy. Cardiac MRI done 02/2021 showed mild septal wall thickness, but no infiltrative process. Stress test negative. He had EPS and noted AVNRT ablation on 03/30/21. Past week, some palpitations 1-2 minutes and some feelings in vision pixels which is how he has felt in the past. Occurs daily, random times of day. Can be sitting still. Several times a day. No syncope. Has had more energy. He denies abdominal distention, chest pain, shortness of breath, orthopnea, cough, edema, PND, lightheadedness or syncope. 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 - Hypertension - Wide-complex tachycardia (HCC) PAST SURGICAL HISTORY Procedure Laterality Date - PAST SURGICAL HISTORY OF kidney stones removed - PAST SURGICAL HISTORY OF heart catheterization - PAST SURGICAL HISTORY OF nerve graft to left wrist SOCIAL HISTORY Social History Tobacco Use - Smoking status: Current Every Day Smoker Packs/day: 0.50 Years: 15.00 Pack years: 7.50 Types: Cigarettes Start date: 03/30/1981 - Smokeless tobacco: Never Used Vaping Use - Vaping Use: Never used Substance Use Topics - Alcohol use: Yes Comment: 6 per week - Drug use: No FAMILY HISTORY Problem Relation Age of Onset - Heart Father at age 40 - Hypertension Father - Ischemic Heart Disease Father - Allergies Father - Ischemic Heart Disease Mother ALLERGIES: ALLERGIES Allergen Reactions - Iodinated Contrast * Hives MEDICATIONS: losartan-hydroCHLOROthiazide (HYZAAR) 100-25 mg per tablet Take 1 tablet by mouth once daily. PHYSICAL EXAMINATION: BP 118/68 Pulse 71 Ht 185.4 cm (6' 1 ) Wt 79.4 kg (175 lb) BMI 23.09 kg/m? General: Well appearing, in no acute distress. Skin: No clubbing, no cyanosis. Eyes: Extra ocular movements intact Oropharynx: mask in place Neck: No jugular venous distention Lungs: Clear to auscultation bilaterally, no wheezing or rhonchi. Heart: Regular rhythm, PMI not displaced, S1, S2 normal Abdomen: Soft, nontender Extremities: No peripheral edema . Grade 2/4 distal pulses bilaterally. Neuro: Oriented to person, place and time, alert, cooperative, gait coordinated. CARDIOVASCULAR MEDICINE TESTING: Electrocardiogram: SR with PACs Last EKG Result Conclusion ECG COMPLETE Collected: 05/26/2021 12:13 PM (Preliminary result) Impression: SINUS RHYTHM WITH PREMATURE ATRIAL COMPLEXES OTHERWISE NORMAL ECG Complete Results Last MRI Result Conclusion MRI CARDIAC VELOCITY FLOW MAP Exam End: 03/25/2021 3:11 PM (Final result) Impression: IMPRESSION: 1. Normal left ventricle size (LVEDVi 59 mL/m2) and systolic function (LVEF 66%). Mildly increased septal wall thickness (measuring 1.4 - 1.5 cm). The papillary muscles are mildly thickened and multi-headed. There is no systolic anterior motion of the mitral valve. 2. There is subtle 'sand-like' enhancement in the basal lateral wall, which is felt to be related to blood pool within the fine trabeculations. Delayed-enhancement imaging otherwise reveals uniformly nulled myocardium, signifying that there has been no prior ischemic myocardial damage. There is also no definite evidence of interstitial fibrosis to suggest an infiltrative process. 3. Normal right ventricle size (RVEDVi 54 mL/m2) and systolic function (RVEF 55%). 4. No significant valvular abnormalities. Monument Stonecutter: ANITHA Transcribe Date/Time: Mar 25 2021 3:28P Dictated by : ALLIE WOOD MD This examination was interpreted and the report reviewed and electronically signed by: DENG OCASIO MD on Mar 25 2021 5:06PM EST Complete Results IMPRESSION: Mr. Rodgers is a 60 year old male with PMH of syncope with head injury, HTN hx of alcohol abuse, WCT and family hx of SCD. He has normal EF and some septal hypertrophy on Cardiac MRI done 02/2021, no infiltrative proces (more content not included)...[facility]10-27-2021 Note HNO ID: [id number] Author: [facility] Service: ? Author Type: Resource Type: Procedures Filed: 06/23/2021 10:49 AM Note Text: Patient had a min HR of 50 bpm, max HR of 250 bpm, and avg HR of 75 bpm. Predominant underlying rhythm was Sinus Rhythm. 13 non-sustained Ventricular Tachycardia runs occurred, the run with the fastest interval lasting 19 beats with a max rate of 250 bpm, the longest lasting 19.5 secs with an avg rate of 161 bpm. 8 non-sustained Supraventricular Tachycardia runs occurred, the run with the fastest interval lasting 5 beats with a max rate of 171 bpm, the longest lasting 16 beats with an avg rate of 107 bpm. Isolated SVEs were occasional (3.3%, 79975), SVE Couplets were rare (<1.0%, 182), and SVE Triplets were rare (<1.0%, 31). Isolated VEs were rare (<1.0%, 357), VE Couplets were rare (<1.0%, 15), and VE Triplets were rare (<1.0%, 5). Ventricular Bigeminy was present. No symptoms reported. Independently reviewed and verified Roxana Downing MD June 23, 2021 10:48 AM SVE = supraventricular ectopic (PAC) VE = ventricular ectopic (PVC) Patient Name: Freedom Rodgers : 1960 Ordering Provider: CONNOR MORTON Indication: I47.2 Ventricular tachycardia Type of Monitor: Extended Monitoring-Zio Patch Enrollment Dates: 05/26/2021-06/09/2021[facility]09-01-2021 Note HNO ID: [id number] Author: Arcadio Mckeon MD Service: Cardiovascular Medicine Author Type: Fellow Type: Progress Notes Filed: 03/31/2021 10:52 AM Note Text: [facility] CARDIOVASCULAR MEDICINE PROGRESS NOTE (Template ID [id number]) PRIMARY SERVICE: i [facility] HOSPITAL DAY: #0 INTERVAL HISTORY - No issues overnight. PHYSICAL EXAM BP 128/78 Pulse 61 Temp 36.9 ?C (98.4 ?F) (Oral) Resp 20 Ht 185.4 cm (6' 1 ) Wt 79.8 kg (176 lb) SpO2 100% BMI 23.22 kg/m? Intake/Output Summary (Last 24 hours) at 03/31/2021 1052 Last data filed at 03/31/2021 0900 Gross per 24 hour Intake 1320 ml Output 120 ml Net 1200 ml General Appearance: Well developed and Well nourished HEENT: PERRLA and EOM's intact Lungs: Clear Heart: Regular rate AND rhythm and S1, S2 normal Abdomen: Soft and Non-tender Skin: Warm Musculoskeletal: No deformities Neurologic/Psychiatric: Oriented to time, place AND person MEDICATIONS Current Facility-Administered Medications Medication Dose Route Frequency - NaCl 0.9% iv flush bag 20 mL INTRAVENOUS PRN - sodium chloride 0.9 % (flush) 3-5 mL (BD POSIFLUSH) 3-5 mL INTRAVENOUS q 12 H - acetaminophen 650 mg tab(s) (TYLENOL) 650 mg ORAL q 4 H PRN DATA Recent Labs 03/30/21 0700 WBC 4.71 HB 13.6 HCT 37.6* PLT 160 Recent Labs 03/30/21 0700 NA 139 K 3.8 CO2 26 BUN 18 CREAT 0.83 GLUC 109* ASSESSMENT AND PLAN 60 yo M D1 post slow pathway modification. Plan: - Discharge today. - Stop verapamil. Case to be discussed with staff SIGNATURE: Arcadio Mckeon MD PATIENT NAME: Freedom Rodgers DATE: March 31, 2021 TIME: 10:52 AM For communication after 5 pm on weekdays and after 12 pm on weekends, please page the following: - Clinical Cardiology patients on all floors: page [phone] - Other Cardiology patients on J5 and J6: page [phone] - Other Cardiology patients on J7 and J8: page [phone] ETX [id number]08-31-2021 NoteHNO ID: [id number] Author: Arcadio Mckeon MD Service: Cardiovascular Medicine Author Type: Fellow Type: Procedures Filed: 03/30/2021 2:36 PM Note Text: [facility] ELECTROPHYSIOLOGY BRIEF PROCEDURE NOTE Freedom Rodgers [id number] PROCEDURE: Slow Pathway Modification OUTCOME: Successful ACCESS: Bilateral femoral veins, right SFA COMPLICATIONS: None PLAN: - Bedrest for 4 hours Full report will follow in Epic. Arcadio Mckeon MD PGY-8, Electrophysiology FellowOhiohealth Southeastern Medical Center08-30-2021 NoteHNO ID: [id number] Author: Steff Small Service: ? Author Type: ? Type: Progress Notes Filed: 03/29/2021 1:13 PM Note Text: THE FOLLOWING WAS EVALUATED Motivation To Learn: Interested Family/Significant Other Support: Unable to assess - Family not present Cognitive Ability: Alert and oriented Patient Learns Best By: Individual Instruction The Following Influencing Factors Were Barriers To This Education Session: None The Following Physical Limitations Were Barriers To This Education Session: None Instruction Provided To: Patient Procedure: Electrophysiology Study Radio Frequency Ablation Pre-procedure information reviewed: Patient ID verified Procedure verified Physician verified Explanation of procedure Sedation level during procedure MD medication instructions from EP lab request Stop Beta Renetta/ Calcium Channel Renetta: Yes verapamil (Covera-HS, Verelan PM, Calan) 2 days prior to procedure Travel instructions/restrictions Scheduling information Possible same day discharge versus overnight hospital stay Check out time Family waiting area Physician contact with family after procedure Post Procedure Expectations reviewed: Inpatient hospital stay Post procedure antiarrhythmics and anticoagulation will be discussed with Physician, nurse practitioner or Physician vector control assistant upon discharge Instructions for transmitting EKG to Monitoring Center 3 month follow up instructions Contact number for information and questions Patient Evaluation: Verbalizes understanding Follow Up Plan: Follow up as directed by . Supplemental Material Given: Written Material Patient education regarding radiation exposure. Instructed By Steff Small. In Department of CARDIOLOGY.[facility]08-30-2021 NoteEducation (EPSMN) ANA MARIA,FREEDOM ([id number]) 1960 M Date Time Provider Department 8/30/21 ROXANA DOWNING EPSMN Reason for Visit: Patient Education [91] Cmt: EPS: VT RFA Progress Notes: Steff Small 03/29/2021 1:13 PM Signed THE FOLLOWING WAS EVALUATED Motivation To Learn: Interested Family/Significant Other Support: Unable to assess - Family not present Cognitive Ability: Alert and oriented Patient Learns Best By: Individual Instruction The Following Influencing Factors Were Barriers To This Education Session: None The Following Physical Limitations Were Barriers To This Education Session: None Instruction Provided To: Patient Procedure: Electrophysiology Study Radio Frequency Ablation Pre-procedure information reviewed: Patient ID verified Procedure verified Physician verified Explanation of procedure Sedation level during procedure MD medication instructions from EP lab request Stop Beta Renetta/ Calcium Channel Renetta: Yes verapamil (Covera-HS, Verelan PM, Calan) 2 days prior to procedure Travel instructions/restrictions Scheduling information Possible same day discharge versus overnight hospital stay Check out time Family waiting area Physician contact with family after procedure Post Procedure Expectations reviewed: Inpatient hospital stay Post procedure antiarrhythmics and anticoagulation will be discussed with Physician, nurse practitioner or Physician vector control assistant upon discharge Instructions for transmitting EKG to Monitoring Center 3 month follow up instructions Contact number for information and questions Patient Evaluation: Verbalizes understanding Follow Up Plan: Follow up as directed by MD. Supplemental Material Given: Written Material Patient education regarding radiation exposure. Instructed By Steff Small. In Department of CARDIOLOGY. During your visit today, we recorded the following information about you: Allergies As of Date: 03/29/2021 Noted Allergy Reaction IODINATED CONTRAST MEDIA 09/08/2004 4 - Hives Date Reviewed: 03/25/2021 Reviewed by: Iggy Escobedo RN - Fully Assessed Prescriptions as of 03/29/2021 - losartan-hydroCHLOROthiazide (HYZAAR) 100-25 mg per tablet Take 1 tablet by mouth once daily. - verapamil SR (CALAN SR, ISOPTIN SR) 240 mg CR tablet Take 240 mg by mouth daily at bedtime. - iv contrast (radiology procedure) MRI TSP Inject, intravenously, once for 1 dose. No IV access, insert saline lock prior to the beginning of sedation, infusion, injection of imaging exam. Discontinue saline lock post exam. If Pt. has a central line or IVAD, may access for administration according to line specific nursing protocol. Once exam is complete flush line and de-access according to line specific nursing protocol in the MR contrast administration guidelines link. Facility-Administered Medications as of 03/29/2021 - perflutren lipid microspheres 1.3 mL in NaCl (PF) 0.9% 10 mL injection (DEFINITY) - sodium chloride 0.9 % (flush) 10 mL (BD POSIFLUSH) Encounter Status:Closed by STEFF SMALL on 03/29/21[facility]08-26-2021 NoteHNO ID: [id number] Author: Iggy Escobedo RN Service: Nursing Author Type: Registered Nurse Type: Progress Notes Filed: 03/25/2021 1:56 PM Note Text: Radiology Service Progress Note DATE OF SERVICE: March 25, 2021 TIME: 1:52 PM PATIENT WEIGHT: 180 LBS PATIENT IDENTITY VERIFICATION COMPLETED USING TWO (2) STANDARD IDENTIFIERS: Name and Date of confirmed by patient verbally and Name and Date of confirmed by identification band. FALL SCREENING: Has the patient had 2 falls in the last year or 1 fall with injury or currently using an Ambulatory Assistive Device (Walker, Cane, Wheelchair, Crutches, etc.)? No PATIENT GENDER DATA: Male ALLERGIES: Reviewed and unchanged CONTRAST ALLERGY: No EXAM: MRI - CONTRAST TYPE: GROUP II IV SITE: Ambulatory: A peripheral IV was started in the Right antecubital site with a Angio cath: 22 gauge. and A Saline lock was inserted per protocol IV SITE APPEARANCE: Clean,Dry and Intact SIGNATURE: Iggy Escobedo RN PATIENT NAME: Freedom Rodgers DATE: March 25, 2021 TIME: 1:52 [facility]08-26-2021 NoteHNO ID: [id number] Author: Iggy Escobedo RN Service: Nursing Author Type: Registered Nurse Type: Progress Notes Filed: 03/25/2021 2:37 PM Note Text: Radiology Service Progress Note PATIENT NAME: Freedom Rodgers DATE OF SERVICE: March 25, 2021 TIME: 2:36 PM PATIENT IDENTITY VERIFICATION COMPLETED USING TWO (2) STANDARD IDENTIFIERS: Name and Date of confirmed by patient verbally and Name and Date of confirmed by identification band. PATIENT GENDER DATA: Male PATIENT RELEVANT IMPLANT DATA REVIEWED: Not Applicable ALLERGIES: Reviewed and unchanged MEDICATIONS REVIEWED: YES IV SITE: Ambulatory: A peripheral IV was started in the Right antecubital site with a Angio cath: 22 gauge. and A Saline lock was inserted per protocol PERIPHERAL IV ACCESS: Discontinued ANXIOLYSIS/ANESTHESIA: Xanax 1 mg SL PATIENT DISCHARGED TO: Home/Self Care SIGNED BY: Iggy Escobedo RN March 25, 2021 2:36 [facility]08-05-2021 NoteHNO ID: [id number] Author: Roxana Downing MD Service: Electrophysiology Author Type: Physician Type: Progress Notes Filed: 03/31/2021 9:22 AM Note Text:[facility]08-05-2021 NoteHNO ID: [id number] Author: Roxana Downing MD Service: ? Author Type: Physician Type: Procedures Filed: 04/05/2021 9:44 PM Note Text: Sinus rhythm, with episodes of wide-complex tachycardia, HR 56 - 145, avg 75 <1% PVCs <1% PACs No pauses 7 symptom events reported, correlating with sinus rhythm 2 episodes of wide complex tachycardia, VT vs SVT with aberrancy. Independently reviewed and verified Roxana Downing MD April 05, 2021 9:39 [facility]08-05-2021 NoteHNO ID: [id number] Author: Roxana Downing MD Service: ? Author Type: Physician Type: Progress Notes Filed: 03/31/2021 9:23 AM Note Text: Asked to see by Fritz Hooks and Bozena for question of syncope and NSVT. My recommendations will be communicated back to the primary team by way of shared electronic medical record for physicians within the [facility] or via mail if from outside the system. HISTORY OF PRESENT ILLNESS The above relevant present and past medical Hx was verified and the exam findings were confirmed with additional exam findings added/clarified and/or corrected in my exam below. Additional Hx/summary is as follows: 60 YO male with ?VT as well as syncope with head injury. He reports that in 2016 he was told he had V-tach. He feels chest pressure when this occurs. He was going in for admission for EtOH treatment and his BP was markedly elevated, so he was sent to the hospital. He felt fine, but BP was reportedly ~250/140. He was placed on a Monitor and he had the sensation of chest pressure and syncope. He was reportedly in sustained VT, but no recording was made of this. He has never required cardioversion. He was treated in the CCU for several days and he was discharged as an outpatient with B-blockers (metoprolol) and an TRIP-I. No additional testing was done and he has not worn any monitors as an outpatient. He was on Toprol 200, but tolerated this poorly with fatigue, so he had cut it back to 100 mg daily. The most recent episode resulted in syncope and a laceration. He was at work, had the sensation of chest pressure, then a head ortiz, then he lost conscious abruptly and then awakened with the laceration. He was sent to [facility] by ambulance, and was kept there for 4 days on tele. He was seen by cardiology and NSVT was seen on 2 occasions. His metoprolol was stopped and he was switched to verapamil. He had an echo showing normal LVEF, with no significant valve Dz or diastolic dysfunction. He had some upper septal hypertrophy. There is a family history sudden in his father who at 40. There is no Fam Hx of pacemakers or ICD's. He has not had any outpatient monitoring. He has not been scheduled for any evaluation for ischemia. At home he is getting BPs in the 140/90s range. Cardiac meds are: an ARB/HCTZ combo, verapamil Meds and allergies were reviewed/updated in [facility]. General - Well-developed, well-nourished, no acute distress. HEENT - Normocephalic, Semicircular laceration on occipital region with randy intact. . Neck -Supple, no JVD, no bruits, no thyromegaly. Heart - RRR, no murmur. Lungs - CTA bilaterally. Abdomen - Positive bowel sounds, no bruit, no organomegaly, no masses. Back - Non-tender. Extremities - No edema. Normal pulses. Neuro - Alert and oriented to person, place, time. ECG today in the office shows: NSR 76 116/86/459 [place], no pre-excitation. NS ST-T changes Tele strip from [facility] (on his cell phone) NSVT with RBBB, superior axis (6-lead with V1) Impression: 1. Syncope and collapse with head injury. 2. Ventricular arrhythmia. 3. Hypertension. 4. Past history of alcohol abuse, now in remission. Plan: Mr. Rodgers presents today for evaluation of syncope and ventricular arrhythmia. He was admitted in [facility] after a syncopal event in which he suffered a laceration to his head requiring sutures. He had a sensation of a ortiz in his head and pressure in his chest before this happened. He reports that in 2016, in the midst of a hypertensive crisis, he was documented to have sustained ventricular tachycardia. He did not require cardioversion. He apparently was admitted to the CCU in that hospital. He does not recall ever having undergone any additional cardiac evaluation like a stress test. He never wore a monitor as an outpatient. After this most recent event, he had an echocardiogram at [facility] which showed no structural heart disease. He was switched from his long-acting beta blockers to a long-acting calcium channel renetta. He reports that his father suddenly at age 40. His EKG shows a borderline short IL interval, but no pre-excitation. He has some nonspecific ST and T-wave changes. While he was in [facility], episodes of nonsustained ventricular tachycardia were seen on telemetry and he actually has a picture of one of these on his cellphone. It appears to be a 6-lead telemetry EKG with a V1 lead and shows what appears to be a right bundle branch block, superior axis morphology nonsustained VTach. I reviewed with the patient and his the gravity of the situation. I told him I an encouraged that he has normal LV function which would typically be associated with a good prognosis, however, he has had syncope on at least one occasion, injuring himself, so we discussed that there is a possibility a defibrillator could be necessary in his situation. I would like wy (more content not included)...[facility]08-05-2021 NoteHNO ID: [id number] Author: Jonny Cameron RN Service: ? Author Type: ? Type: Progress Notes Filed: 03/04/2021 10:22 PM Note Text: [facility] [place] Melissa Medina Department of Cardiovascular Medicine SECTION OF CARDIAC PACING and ELECTROPHYSIOLOGY OUTPATIENT VISIT DATE March 04, 2021 OUTPATIENT VISIT TYPE NEW PRIMARY CARE PHYSICIAN: Archie Hooks MD [address] [place] [address] REFERRING PHYSICIAN: Archie Hooks MD [address] [facility] [id number] NURSING INTAKE HISTORY: Mr. Rodgers is a 60 year old male who presents today for VT. He has a history of alcohol abuse, smoker, hypertension, and VT. In 2016, he was admitted for hypertensive crisis, had episode of VT while on telemetry with associated chest pressure. He was discharged on metoprolol and lisinopril. He reports brief episodes of chest pressure over the years. Last week, he had a syncopal episode at work with head injury, admitted to the hospital. He had 2 episodes of VT while on monitor, no intervention necessary, his medications were adjusted to losartan-hydrochlorothiazide and verapamil before discharge. Echo showed EF 55-60%. He has been using his 's Kardia this past week to monitor, but has had no similar episodes. He has not worn a site monitor. He reports occasional palpitations and lightheadedness, but denies any further syncopal episodes. PAST MEDICAL HISTORY Diagnosis Date - Hypertension PAST SURGICAL HISTORY Procedure Laterality Date - PAST SURGICAL HISTORY OF kidney stones removed - PAST SURGICAL HISTORY OF heart catheterization - PAST SURGICAL HISTORY OF nerve graft to left wrist SOCIAL HISTORY Social History Tobacco Use - Smoking status: Current Every Day Smoker Packs/day: 2.00 Years: 15.00 Pack years: 30.00 Types: Cigarettes - Smokeless tobacco: Never Used Vaping Use - Vaping Use: Never used Substance Use Topics - Alcohol use: Yes Comment: 6 per week - Drug use: No FAMILY HISTORY Problem Relation Age of Onset - Heart Father at age 40 - Hypertension Father - Ischemic Heart Disease Father - Allergies Father - Ischemic Heart Disease Mother ALLERGIES: ALLERGIES Allergen Reactions - Iodinated Contrast * Hives MEDICATIONS: losartan-hydroCHLOROthiazide (HYZAAR) 100-25 mg per tablet Take 1 tablet by mouth once daily. verapamil SR (CALAN SR, ISOPTIN SR) 240 mg CR tablet Take 240 mg by mouth daily at bedtime. iv contrast (radiology procedure) MRI TSP Inject, intravenously, once for 1 dose. No IV access, insert saline lock prior to the beginning of sedation, infusion, injection of imaging exam. Discontinue saline lock post exam. If Pt. has a central line or IVAD, may access for administration according to line specific nursing protocol. Once exam is complete flush line and de-access according to line specific nursing protocol in the MR contrast administration guidelines link. REVIEW OF SYSTEMS: General, constitutional: Weight loss or gain- No, Fever or chills-No, Weakness-No, Trouble sleeping-yes. Head, Eyes, Ears, Mouth: Headache, head injury-yes, Glasses or contact lenses-yes, Pain-No, Impaired vision-No, Decreased hearing-No, Ringing in ears-No, Nose bleeds-No, Dental difficulties-No, Bleeding gums-No, Dentures-No. Neck: Swelling-No, Pain-No, Stiffness-No. Respiratory: Cough-No, Spitting up blood-No, Shortness of breath-yes, Wheezing or asthma-No. Musculoskeletal: Muscle or joint pain or stiffness-No, Joint swelling-No. Gastrointestinal: Difficulty swallowing-No, Heartburn-No, Change in bowel habits-No, Blood in stool, Dark black stools-No. Neurological/Psychiatric: Weakness, paralysis-yes, Numbness-No, Tingling-yes, Tremor-yes, Nervousness or anxiety-yes, Depressed mood-No, Memory loss-No. Skin: Rash-No, Itching-No. Hematological: Easy bruising-No, Easy bleeding-No. Endocrine: Heat or cold intolerance-No, Excessive sweating-No, Frequent urination-yes, Frequent thirst-No. Jonny Cameron RN PHYSICAL EXAMINATION: BP 122/90 Pulse 76 Ht 182.9 cm (6') Wt 83.9 kg (185 lb) BMI 25.09 kg/m? CARDIOVASCULAR MEDICINE TESTING: OS Echo 02/25/2021: Interpretation Summary The left ventricular size, thickness and function are normal Ejection Fraction = 55-60%. A variety of Doppler measurements indicate normal left ventricular diastolic function. There is trace mitral regurgitation. There is trace tricuspid regurgitation.[facility] Plan note No data available for this section [facility] Future Appointments Appointment Date:01/17/2024 10:15:00 AM Scheduled Provider:Víctor BRADY MD Location:[facility] Appointment Type[facility] Future Appointments Appointment Date:01/15/2025 09:15:00 AM Scheduled Provider:Víctor BRADY MD Location:[facility] Appointment Type:URO Office Visit Future Scheduled Tests Radiology* XR Abdomen 1 View 11/28/24 [facility] evaluation + Plan note Future Appointments Appointment Date:07/20/2023 02:30:00 PM Scheduled Provider: Location:[facility] Work Phone: evaluation note* Diagnosis Onset Date Resolution Status Chest pain acute [facility] Work Phone: evaluation note* Diagnosis Onset Date Resolution Status Chest pain acute History of cardiac radiofrequency ablation (RFA) acute Hypertension acute [facility] Work Phone: evaluation note* Diagnosis Onset Date Resolution Status Chest pain acute History of cardiac radiofrequency ablation (RFA) acute Hypertension acute Intentional overdose of beta-adrenergic blocking drug acute Major depressive disorder, recurrent, moderate acute [facility] Work Phone: evaluation note* Diagnosis Onset Date Resolution Status Intentional overdose of beta-adrenergic blocking drug acute Major depressive disorder, recurrent, moderate acute [facility] Work Phone: evaluation note* Diagnosis Essential hypertension, benign Mixed hyperlipidemia Type 2 diabetes mellitus without complication, unspecified whether half-way insulin use ([facility]) Other chest pain Palpitations PAF (paroxysmal atrial fibrillation) ([facility]) Atrial fibrillation documented in this encounter [facility] Work Phone: Evaluation note* Diagnosis Essential hypertension, benign Other chest pain Palpitations PAF (paroxysmal atrial fibrillation) ([facility]/HCC) Atrial fibrillation BMI 22.0-22.9, adult Smoker Tobacco use disorder documented in this encounter [facility] Work Phone: Evaluation note* Diagnosis Palpitations PAF (paroxysmal atrial fibrillation) ([facility]/HCC) Atrial fibrillation documented in this encounter [facility] Work Phone: Evaluation note* Diagnosis Palpitations- Primary PAF (paroxysmal atrial fibrillation) (Multi) Atrial fibrillation Mixed hyperlipidemia Essential hypertension, benign documented in this encounter [facility] Work Phone: Evaluation note* Diagnosis Benign essential hypertension (CMS/HCC)- Primary Essential hypertension, benign Hypertensive nephropathy (CMS/HCC) Unspecified hypertensive kidney disease with chronic kidney disease stage I through stage IV, or unspecified Microalbuminuria Proteinuria Type 2 diabetes mellitus without complication, without long-term current use of insulin (CMS/HCC) Mixed dyslipidemia (CMS/HCC) Polypharmacy Issue of repeat prescriptions Nicotine use disorder Tobacco use disorder Alcoholism (CMS/HCC) Other and unspecified alcohol dependence, unspecified drinking behavior [facility] Diagnosis Diverticulitis of large intestine with bleeding, unspecified complication status- Primary Bright red blood per rectum Hemorrhage of rectum and anus Colon cancer screening Special screening for malignant neoplasms, colon [facility] Diagnosis Intractable chronic cluster headache- Primary Tremor Abnormal involuntary movements Polyneuropathy Unspecified hereditary and idiopathic peripheral neuropathy Lumbar radiculopathy Thoracic or lumbosacral neuritis or radiculitis, unspecified Intention tremor Essential and other specified forms of tremor Benign essential hypertension (CMS/HCC) Essential hypertension, benign Hypertensive nephropathy (CMS/HCC) Unspecified hypertensive kidney disease with chronic kidney disease stage I through stage IV, or unspecified Microalbuminuria Proteinuria Type 2 diabetes mellitus without complication, without long-term current use of insulin (CMS/HCC) Mixed dyslipidemia (CMS/HCC) Polypharmacy Issue of repeat prescriptions Nicotine use disorder Tobacco use disorder Benign essential hypertension (CMS/HCC) Essential hypertension, benign Hypertensive nephropathy (CMS/HCC) Unspecified hypertensive kidney disease with chronic kidney disease stage I through stage IV, or unspecified Microalbuminuria Proteinuria Mixed dyslipidemia (CMS/HCC) Nicotine use disorder Tobacco use disorder [facility] Diagnosis Polyneuropathy Unspecified hereditary and idiopathic peripheral neuropathy [facility] Narrative* The patient states he has been generally doing well since the last visit. Comorbid Illnesses: diabetes mellitus, hypertension and hyperlipidemia. * Symptoms: denies chest pain at rest, denies exertional chest pain, denies dyspnea, stable fatigue, denies exercise intolerance, worsened palpitations, denies edema, denies orthopnea, denies dizzinessand denies orthostatic dizziness. * Associated symptoms: no syncope. * His symptoms do not limit his activities. * Disease Monitoring: The patient has had a stable weight. * Medications: the patient is adherent with his medication regimen. He denies medication side effects. 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 1. You were given conscious sedation. Do not operate a vehicle, power tools, make important decisions, or drink alcohol for 24 hours. You might be drowsy or light headed. Return to the Emergency Room if you have trouble breathing, walking or nausea and vomiting. 2. FOR BLEEDING: Apply continuous pressure to the site and call 911. 3. Operative Site Care: Keep the dressing clean and dry. You may change the dressing only if soiled or wet. You may remove the dressing the following morning. You may wash over the puncture site in the shower. If the puncture site is at the wrist no soaking for 3 days. Some bruising or slight swelling may be present. -Signs of infection are redness, warmth, swelling, getting more sore, colored drainage, fever or chills. -Should the arm or leg become cold, numb, blue or white, call the maintenance of way superintendent immediately. 4. ACTIVITY: You are advised to go directly home from the hospital. Restrict your activities for the rest of the day. Resume light or normal activities tomorrow. Do not engage in any activity that will stress the puncture site. Avoid heavy lifting (over 15 lbs.), straining or bending at the catheter site for 48 hours after discharge. If the puncture site is at the wrist do not manipulate wrist for 24 hours and no lifting more than 3 lbs for 3 days. 5. DIET:You may eat your regular diet when you desire. 6. MEDICATIONS: Resume your daily prescription schedule. Prescriptions may be sent with you if needed. Use as directed. When taking pain medications, you may experience dizziness or drowsiness. Do not drink alcohol or drive when taking pain medications. 7. If you should experience episodes of angina e.g. chest discomfort, heaviness, tightness, pressure, burning, with or without radiation to the neck, jaws, arms, or back- Use 1 Nitrostat under your tongue every 5-10 minutes, and up to 3 tablets. If no relief- Call 911 and go to the nearest Emergency Room. -Notify the office for recurrent angina, chest pain or other concerns. You may NOT drive yourself home! Follow the medication instructions provided on your discharge. If the dosages and instructions on this sheet differ from the dosage and instructions on the bottle, follow the instructions on the bottle. [facility] is not responsible for incorrect prescription information provided by the patient during their visit. Do not stop your medications without consulting your health care provider. Please take the list with you to your next doctor's appointment.[facility] Work Phone: Hospital Discharge instructions Additional Instructions Increase your intake of fluids. Take Keflex as prescribed. Take Flomax daily as prescribed. Take Tylenol as needed for mild to moderate pain. Take oxycodone as prescribed for severe pain. Take Zofran as prescribed for nausea vomiting. Follow-up with the urologist listed below for ongoing care of kidney stone.[facility] Work Phone: Hospital Discharge instructions Additional Instructions Take your medications as prescribed and follow-up with Dr. Brady for further management of your kidney stone.[facility] Work Phone: Hospital Discharge instructions Additional Instructions Push fluids Rest Take Flomax as ordered Follow-up with Dr. Brady's office Return here if any problems persist or worsen You can take your oxycodone if needed for severe painBar[facility]ton [facility] Hospital Work Phone: Progress note No data available for this section [facility] Reason for referral (narrative)* Consultation (Routine) - Authorized Specialty Diagnoses / Procedures Referred By Contac t Referred To Contact Cardiology Diagnoses Essential hypertension, benign Other chest pain Palpitations PAF (paroxysmal atrial fibrillation) (CMS/HCC) Procedures Follow Up In Cardiology López Galan DO [address] [facility], [place] [address] [place], [place] [id number] López Galan DO [address] [facility], [place] [address] [place], [place] [id number] Referral ID Status Reason Start Date Expiration Date V isits Requested Visits Authorized [id number] Authorized 06/01/2023 05/31/2024 1 1 [facility] Work Phone: Remfpv for referral (narrative)* Consultation (Routine) - Authorized Specialty Diagnoses / Procedures Referred By Contac t Referred To Contact Cardiology Diagnoses PAF (paroxysmal atrial fibrillation) (Multi) Procedures Follow Up In Cardiology López Seals MD [address] [facility] 2, [address] [address] Felicitas Felipe MD [address] [facility], [place] [id number] Referral ID Status Reason Start Date Expiration Date V isits Requested Visits Authorized [id number] Authorized 12/11/2023 12/10/2024 1 1 * Cardiovascular (Routine) - Authorized Specialty Diagnoses / Procedures Referred By Contac t Referred To Contact Diagnoses PAF (paroxysmal atrial fibrillation) (Multi) Procedures ECG 12 Lead López Seals MD [address] [facility], [address] [address] Referral ID Status Reason Start Date Expiration Date V isits Requested Visits Authorized [id number] Authorized 12/11/2023 12/10/2024 1 1 [facility] Work Phone: Summary Purpose Family History Relationship Condition Age at Onset Recorded Date/T chuck brother Myocardial infarction Unknown father Myocardial infarction Unknown Not Specified History of coronary artery bypass surgery Unknown grandparent Myocardial infarction Unknown Malignant neoplasm of pancreas Unknown Malignant neoplasm of lung Unknown sister Malignant neoplasm of breast Unknown Unknown Family Member Name Dates Details Heart problem: Mother, Fathe r Status:Active S/P CABG x 1: Mother(V45.81, Z95.1) Status:Active Family history of malignant neoplasm of breast: Sister(V16.3, Z80.3) Status:Active Family history of kidney dis ease: Sister(V18.69, Z84.1) Status:Active Unknown Family Member Name Dates Details Heart problem: Mother, Fathe r Status:Active S/P CABG x 1: Mother(V45.81, Z95.1) Status:Active Family history of malignant neoplasm of breast: Sister(V16.3, Z80.3) Status:Active Family history of kidney dis ease: Sister(V18.69, Z84.1) Status:Active Unknown Family Member Name Dates Details Heart problem: Mother, Fathe r Status:Active S/P CABG x 1: Mother(V45.81, Z95.1) Status:Active Family history of malignant neoplasm of breast: Sister(V16.3, Z80.3) Status:Active Family history of kidney dis ease: Sister(V18.69, Z84.1) Status:Active Unknown Family Member Name Dates Details Heart problem: Mother, Fathe r Status:Active S/P CABG x 1: Mother(V45.81, Z95.1) Status:Active Family history of malignant neoplasm of breast: Sister(V16.3, Z80.3) Status:Active Family history of kidney dis ease: Sister(V18.69, Z84.1) Status:Active Unknown Family Member Name Dates Details Heart problem: Mother, Fathe r Status:Active S/P CABG x 1: Mother(V45.81, Z95.1) Status:Active Family history of malignant neoplasm of breast: Sister(V16.3, Z80.3) Status:Active Family history of kidney dis ease: Sister(V18.69, Z84.1) Status:Active Advance Directives Advance Directive Response Recorded Date/ Time Advance Directives No August 9:41pm Advance Directive Response Recorded Date/ Time Advance Directives No August 10:41pm Chief Complaint and Reason for Visit Chief Complaint abdominal concers/co nstipation Chief Complaint abdominal concers/co nstipation PALPITATIONS Chief Complaint chest pain Reason for Visit Chest pain Chief Complaint chest pain I10 Reason for Visit Chest pain History of cardiac radiofrequency ablation (RFA) Hypertension Chief Complaint chest pain I10 MDD. Reason for Visit Chest pain History of cardiac radiofrequency ablation (RFA) Hypertension Intentional overdose of beta-adrenergic blocking drug Major depressive disorder, recurrent, moderate Chief Complaint I10 MDD. Chest Pain, Abnormal Calcium Score Reason for Visit Intentional overdose of beta-adrenergic blocking drug Major depressive disorder, recurrent, moderate Chief Complaint I10 MDD. Chest Pain, Abnormal Calcium Score Chest Pain, Abnormal Calcium Score Reason for Visit Intentional overdose of beta-adrenergic blocking drug Major depressive disorder, recurrent, moderate Chief Complaint Chest Pain, Abnormal Calcium Score Chest Pain, Abnormal Calcium Score abd pain Chief Complaint Chest Pain, Abnormal Calcium Score Chest Pain, Abnormal Calcium Score abd pain poss kidney stone, pain Chief Complaint Chest Pain, Abnormal Calcium Score Chest Pain, Abnormal Calcium Score abd pain poss kidney stone, pain unable to urinate hx kidney stones Chief Complaint * Hospital f/u: 'doing ok' * FREEDOM RODGERS is being seen for follow-up of a hospitalization for chest pain. * Patient presents to the office ambulatory steady gait. This is initial in clinic follow-up at [facility]. * December 2022 hospitalized at [facility] due to chest pain, seen in consult by Dr. Galan. Chest pain felt to be atypical, he ruled out for ACS. Inpatient echo EF 55 to 60%, no wall motion abnormality. No changes to medical regimen at time of discharge. 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 He reports having recurrent palpitations and was supposed to get an implantable loop recorder but did not follow-up. He reports he continues to have palpitations that are similar to his prior AVNRT symptoms. They are occurring almost on a daily basis but is noted increased frequency and intensity especially over the last month. He has been utilizing an [employer] where his heart rate will be 52 and then all of a sudden will go in the upper 90s when it hits me. Sometimes they wake him up from sleep. * His presenting complaint with this atypical left-sided pressure that was nonexertional in nature. He reports that it happens every once in a while . 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 He has neuropathy and due to this he describes a change in exercise capacity and functional tolerance. * Cardiovascular risk profile: * Treated hypertension * Treated hyperlipidemia for 3 years with recent LDL 61, HDL 42 * Reports recent diagnosis diet-controlled diabetes with hemoglobin A1c 6.7 * Current everyday smoker; is trying to cut back but denies pharmaceutical assistance * Significant family history of premature coronary artery disease in father [place] at 40 * Blood pressure remains elevated in the office. Last known potassium 3.7. We will add Aldactone for blood pressure and to keep potassium on upper end of normal due to palpitations. * Due to recent hospitalization for chest pain, high risk factor profile we will proceed with perfusion study to rule out underlying ischemic heart disease. Reason for Referral Specialty Diagnoses / Procedures Referred By Contac t Referred To Contact Diagnoses Palpitations PAF (paroxysmal atrial fibrillation) ([facility]) Procedures ECG 12 Lead López Seals MD [address] [place] [address], [place] [id number] Referral ID Status Reason Start Date Expiration Date V isits Requested Visits Authorized [id number] Authorized 10/27/2023 10/26/2024 1 1 Referral ID Status Reason Start Date Expiration Date V isits Requested Visits Authorized [id number] Authorized 10/27/2023 10/26/2024 1 1 Specialty Diagnoses / Procedures Referred By Contac t Referred To Contact Cardiology Diagnoses Palpitations PAF (paroxysmal atrial fibrillation) ([facility]) Procedures Holter Or Event Director Of Archives López Seals MD [address] [place] [address] 2, [address] [address] Referral ID Status Reason Start Date Expiration Date V isits Requested Visits Authorized [id number] Pending Review 10/27/2023 10/26/2024 1 1 Specialty Diagnoses / Procedures Referred By Contac t Referred To Contact Cardiology Diagnoses PAF (paroxysmal atrial fibrillation) (CMS/HCC) Procedures Follow Up In Cardiology López Seals MD [facility] 2, [address] [address] Referral ID Status Reason Start Date Expiration Date V isits Requested Visits Authorized [id number] Authorized 10/27/2023 10/26/2024 1 1 Additional Source Comments (unrecognized sect ion and content) No Status Records FoundNo Status Records FoundNo Status Records FoundNo Status Records FoundNo Status Records FoundNo Status Records FoundNo Status Records FoundNo Status Records FoundNo Status Records FoundNo Status Records FoundNo Status Records Found INFORMATION SOURCE (unrecogn ized section and content) DATE CREATED AUTHOR 01/18/2018 [facility] DATE CREATED AUTHOR AUTHOR'S ORGANIZ ATION 08/29/2021 [facility] DATE CREATED AUTHOR AUTHOR'S ORGANIZ ATION 11/20/2021 [facility] DATE CREATED AUTHOR AUTHOR'S ORGANIZ ATION 10/22/2022 [facility] DATE CREATED AUTHOR AUTHOR'S ORGANIZ ATION 04/03/2023 [facility] DATE CREATED AUTHOR AUTHOR'S ORGANIZ ATION 05/04/2023 [employer] DATE CREATED AUTHOR AUTHOR'S ORGANIZ ATION 05/20/2023 [facility] DATE CREATED AUTHOR AUTHOR'S ORGANIZ ATION 12/12/2023 [facility] DATE CREATED AUTHOR AUTHOR'S ORGANIZ ATION 01/24/2024 [facility] DATE CREATED AUTHOR AUTHOR'S ORGANIZ ATION 06/13/2024 [facility] EPIC DATE CREATED AUTHOR AUTHOR'S ORGANIZ ATION 07/29/2024 [facility] Care Teams (unrecognized sec tion and content) Team Status: Active Member Role Status Dates Archie Hooks MD Primary Care Provider Active Team Status: Inactive Member Role Status Dates Archie Hooks MD Primary Care Provider Active Alexy Albarran , Emergency Provider Active Chantel Hassan MD Admit Provider, Attending Provi sweta Active Myriam Galan , Other Provider Active Team Status: Inactive Member Role Status Dates Archie Hooks MD Primary Care Provider Active Leonel Sandoval APRN Attending Provider Active Team Status: Active Member Role Status Dates Archie Hooks MD Primary Care Provider Active Alexy Albarran DO Emergency Provider Active Chantel Hassan MD Admit Provider, Attending Josei sweta Active Team Status: Inactive Member Role Status Dates Archie Hooks MD Primary Care Provider Active Emir Tejada DO Emergency Provider Active Team Status: Inactive Member Role Status Dates Archie Hooks MD Primary Care Provider Active Jd Mcdowell MD Emergency Provider Active Team Status: Inactive Member Role Status Dates Archie Hooks MD Primary Care Provider Active Benny Capps MD Admit Provider, Attending Pr ovider Active Team Status: Inactive Member Role Status Dates Archie Hooks MD Primary Care Provider Active Myriam Galan DO Attending Provider Active Team Status: Inactive Member Role Status Dates Archie Hooks MD Primary Care Provider Active Serafin Capps MD Admit Provider Active Buddy Rome MD Attending Provider Active Headrig Sawyer Relationship Specialty Start Date End Date Archie Hooks MD [address] [place] [address] PCP - General 01/25/23 Team Status: Inactive Member Role Status Dates Dalton Hernandez DO Emergency Provider Active Archie Hooks MD Primary Care Provider Active Team Status: Inactive Member Role Status Dates Archie Hooks MD Primary Care Provider Active Dalton Hernandez DO Emergency Provider Active Team Status: Inactive Member Role Status Dates Archie Hooks MD Primary Care Provider Active Ashley Rush APRN Emergency Provider Active Headrig Sawyer Relationship Specialty Start Date End Date Archie Hooks MD [address] [place] [address] PCP - General 01/25/23 Headrig Sawyer Relationship Specialty Start Date End Date Archie Hooks MD [address] [place] [phone] PCP - General 01/25/23 Headrig Sawyer Relationship Specialty Start Date End Date Archie Hooks MD [facility] [place] [phone] PCP - General 01/25/23 Headrig Sawyer Relationship Specialty Start Date End Date Archie Hooks MD [address] [place] [address] (Fax) PCP - General Family Medicine 01/16/23 Headrig Sawyer Relationship Specialty Start Date End Date Archie Hooks MD [address] [facility] [place] [address] (Fax) PCP - General Family Medicine 01/16/23 Headrig Sawyer Relationship Specialty Start Date End Date Archie Hooks MD [address] [place] [address] (Fax) PCP - General Family Medicine 01/16/23 Headrig Sawyer Relationship Specialty Start Date End Date Archie Hooks MD [address] [place] [address] (Fax) PCP - General Family Medicine 01/16/23 Headrig Sawyer Relationship Specialty Start Date End Date Archie Hooks MD [address] [place] [address] (Fax) PCP - General Family Medicine 01/16/23 Headrig Sawyer Relationship Specialty Start Date End Date Archie Hooks MD [address] [facility] [place] [address] (Fax) PCP - General Family Medicine 01/16/23 Headrig Sawyer Relationship Specialty Start Date End Date Archie Hooks MD [address] [place] [address] (Fax) PCP - General Family Medicine 01/16/23 Headrig Sawyer Relationship Specialty Start Date End Date Archie Hooks MD [address] [place] [address] (Fax) PCP - General Family Medicine 01/16/23 Headrig Sawyer Relationship Specialty Start Date End Date Archie Hooks MD [address] [place] [address] (Fax) PCP - General Family Medicine 01/16/23 Headrig Sawyer Relationship Specialty Start Date End Date Archie Hooks MD [address] [place] [address] (Fax) PCP - General Family Medicine 01/16/23 Goals (unrecognized section and content) Goals may be documented in a n alternate section Reason for Visit (unrecogniz ed section and content) Reason Comments Follow-up Post-Cath Reason Comments Follow-up 6mo Specialty Diagnoses / Procedures Referred By Contac t Referred To Contact Cardiology Diagnoses Essential hypertension, benign Other chest pain Palpitations PAF (paroxysmal atrial fibrillation) (CMS/HCC) Procedures Follow Up In Cardiology López Galan DO [address] [place] [address] 2, [address] [address] López Galan, [facility] 2, [address] [place] [address] Referral ID Status Reason Start Date Expiration Date V isits Requested Visits Authorized [id number] Authorized 06/01/2023 05/31/2024 1 1 Reason Comments ekg visit Specialty Diagnoses / Procedures Referred By Contac t Referred To Contact Diagnoses Palpitations PAF (paroxysmal atrial fibrillation) (CMS/HCC) Procedures ECG 12 Lead López Seals MD [address] [place] [address] 2, [address] [address] Referral ID Status Reason Start Date Expiration Date V isits Requested Visits Authorized [id number] Authorized 10/27/2023 10/26/2024 1 1 Reason Comments Follow-up 2 month Specialty Diagnoses / Procedures Referred By Contac t Referred To Contact Cardiology Diagnoses PAF (paroxysmal atrial fibrillation) (Multi) Procedures Follow Up In Cardiology López Seals MD [facility] 2, [address] [address] Referral ID Status Reason Start Date Expiration Date V isits Requested Visits Authorized [id number] Authorized 10/27/2023 10/26/2024 1 1 Reason Comments Hypertension Hyperlipidemia Reason Comments Rectal Bleeding Reason Comments Med Refill FOR RECORDS PERTAINING TO PATIENTS WHO ARE OR HAVE BEEN ENROLLED IN A CHEMICAL DEPENDENCY/SUBSTANCEABUSE PROGRAM, SOME INFORMATION MAY BE OMITTED. This clinical summary was aggregated from multiple sources. Caution should be exercised in using it in the provision of clinical care. This summary normalizes information from multiple sources, and as a consequence, information in this document may materially change the coding, format and clinical context of patient data. In addition, data may be omitted in some cases. CLINICAL DECISIONS SHOULD BE BASED ON THE PRIMARY CLINICAL RECORDS. [email or web address] provides no warranty or guarantee of the accuracy or completeness of information in this document.
[2024-07-30 08:53] LABS: Hemoglobin 16.9 g/dL (14.0-18.0); Mean Corpuscular Hemoglobin 33.5 pg (25.9-34.0); Mean Corpuscular Volume 93.3 fL (80.0-94.0); Mean Platelet Volume 10.8 fL (9.5-13.5); Platelet Count 138 10^3/uL (150-450); Red Blood Count 5.04 10^6/uL (4.70-6.10); Red Cell Distribution Width 11.5 % (11.0-15.0); White Blood Count 3.9 10^3/uL (4.0-11.0)
[2024-07-30 09:02] LABS: Alanine Aminotransferase 36 U/L (16-63); Albumin Globulin Ratio 1.2; Albumin Level 3.9 g/dL (3.4-5.0); Alkaline Phosphatase 153 U/L (46-116); Amylase 53 U/L (25-115); Anion Gap 14.4; Aspartate Amino Transferase 30 U/L (15-37); BUN Creatinine Ratio 16.9; Bilirubin Direct 0.1 mg/dL (0.0-0.2); Bilirubin Total 0.7 mg/dL (0.2-1.0); Calcium 9.1 mg/dL (8.5-10.1); Carbon Dioxide 23.5 mmol/L (21.0-32.0); Chloride 109 mmol/L (98-107); Estimated GFR (African America >60 (>=60 mL/min/1.73m^2); Estimated GFR (Non-African Ame >60 (>=60 mL/min/1.73m^2); Globulin 3.2 g/dL; Glucose 122 mg/dL (74-106); Potassium 3.9 mmol/L (3.5-5.1); Sodium 143 mmol/L (136-145); Total Protein 7.1 g/dL (6.4-8.2)
[2024-07-30 09:15] LABS: Eosinophils Absolute Manual 0.07 10^3/uL (0.00-0.70); Lymphocytes Absolute Manual 1.48 10^3/uL (1.20-3.80); Monocytes Absolute Manual 0.42 10^3/uL (0.30-0.80)
[2024-07-30 09:16] VITALS: O2SAT 98
[2024-07-30 09:17] LABS: Atypical Lymphocytes Abs Man 0.11; Segmented Neut Absolute Manual 1.75 10^3/uL (1.4-6.5)
[2024-07-30 10:53] VITALS: BP 142/84; PULSE 75; O2SAT 97
== END 2024-07-30 10:55 | disposition home or self-care (01) ==
PROVIDERS: Emergency Provider Emergency Medicine; PCP Family Medicine
DX: R10.13 Epigastric pain (principal); Z90.49 Acquired absence of other specified parts of digestive tract
CPT/HCPCS: 36415; 74176; 80048; 80076; 82150; 83690; 85007; 85027; 99284

== ENCOUNTER 2024-08-11 22:52 | Emergency (ER) | payer OTHER, SELFPAY ==
[2024-08-11 22:55] VITALS: BP 145/91; PULSE 62; TEMP 36.9; O2SAT 99; BMI 15.3
--- NOTE | 2024-08-11 22:56 | ED.GENADUL1 ---
HPI HPI - General Adult General Chief complaint: Headache Stated complaint: other Time Seen by Provider: 08/11/24 22:56 History of Present Illness HPI narrative: This 63-year-old male with a history of neuropathy who denies being diabetic is brought to the emergency department by EMS from work. The patient states that an alarm went off because the CO2 canister that is used for the pop machine was hissing. Shortly after that he developed a headache. He told EMS that he could not stay awake and according to them he was falling asleep on the way to the hospital. He says he has a global headache with mild nausea. This started after the pop machine was hissing. He does not have any neck pain or stiffness. He denies any injury. He has no focal neurologic weakness numbness or tingling. He does not appear to have any confusion slurred speech or other notable neurologic symptoms. He states that his boss made him come in after the exposure. Related Data Home Medications ?Medication ?Instructions ?Recorded ?Confirmed atorvastatin 80 mg tablet 80 mg PO DAILY 02/28/23 07/30/24 biotin 10,000 mcg capsule 10,000 mcg PO BID 02/28/23 07/30/24 gabapentin 400 mg capsule 400 mg PO TID 02/28/23 07/30/24 losartan 100 mg tablet 100 mg PO DAILY 02/28/23 07/30/24 magnesium oxide 400 mg (241.3 mg 400 mg PO DAILY 02/28/23 07/30/24 magnesium) tablet topiramate 50 mg tablet 50 mg PO BID 02/28/23 07/30/24 desvenlafaxine succinate 50 mg 50 mg PO DAILY 07/30/24 07/30/24 tablet,extended release 24 hr sotalol 80 mg tablet 80 mg PO DAILY 07/30/24 07/30/24 tramadol 50 mg tablet 50 mg PO Q12H 07/30/24 07/30/24 Previous Rx's ?Medication ?Instructions ?Recorded esomeprazole magnesium 40 mg 40 mg PO DAILY 28 days #28 caps 07/30/24 capsule,delayed release (Nexium) Allergies Allergy/AdvReac Type Severity Reaction Status Date / Time ivp dye Allergy Severe Anaphylaxis Uncoded 08/11/24 22:59 shell fish Allergy Severe Anaphylaxis Uncoded 08/11/24 22:59 Opioid HPI Opioid Management Most Recent Opioid Data: Last Pain Scale 9 07/30/24 09:13 07/30/24 Ur Phencyclidine Scrn Negative (NEGATIVE) 02/28/23 21:00 02/28/23 Review of Systems ROS Status of ROS 10 or more systems reviewed and unremarkable except as noted in history and below Exam Narrative Exam Narrative: Vital signs and Nursing Notes reviewed: Patient is afebrile with a normal pulse, blood pressure is mildly elevated at 145/91, he is not hypoxic with pulse ox of 99% on room air General: Awake, alert, oriented, GCS 15 HEENT: Normocephalic atraumatic, mucous membranes are moist and pink, eyes are clear, normal conjunctiva, vision is grossly intact, posterior pharynx is normal in appearance. Neck: Supple, no meningeal signs Chest: Lungs are clear to auscultation with good air entry, there is no wheezing rhonchi or rales appreciated no accessory muscle use, patient is speaking in complete sentences-no chest wall tenderness to palpation CVS: Regular rate and rhythm S1-S2, no murmurs rubs or gallops, pulses are brisk and equal bilaterally ABD: Soft, nondistended, nontender, no rebound guarding or rigidity, bowel sounds are normal, no pulsatile masses appreciated Extremities: Moving all extremities, no lower extremity tenderness or swelling noted, negative Homans' sign, pulses are brisk and equal bilaterally Skin: Normal in appearance without rash,pallor, petechiae or purpura Neuro: No focal deficits, speech is clear, there is no facial droop, rat trapper strength is intact, negative pronator drift, upper and lower extremity strength and sensation is intact, NIH stroke scale is 0 Constitutional Vital Signs, click to edit/add: Last Vital Signs Temp 98.4 F 08/11/24 22:55 Pulse 62 08/11/24 22:55 Resp 18 08/11/24 22:55 BP 145/91 H 08/11/24 22:55 Pulse Ox 100 08/12/24 00:11 O2 Del Method Room Air 08/12/24 00:11 Course Vital Signs Vital signs: Vital Signs Temperature 98.4 F 08/11/24 22:55 Pulse Rate 62 08/11/24 22:55 Respiratory Rate 18 08/11/24 22:55 Blood Pressure 145/91 H 08/11/24 22:55 Pulse Oximetry 99 08/11/24 22:55 Oxygen Delivery Method Room Air 08/11/24 22:55 Temperature 98.4 F 08/11/24 22:55 Pulse Rate 62 08/11/24 22:55 Respiratory Rate 18 08/11/24 22:55 Blood Pressure 145/91 H 08/11/24 22:55 Pulse Oximetry 100 08/12/24 00:11 Oxygen Delivery Method Room Air 08/12/24 00:11 Medical Decision Making MDM Narrative Medical decision making narrative: This 63-year-old male is brought to the emergency department by EMS from work after he was exposed to an open CO2 canister on a soda machine. He states that after being exposed to it after the alarm went off he developed a global headache with some mild nausea. He states that his boss made him call EMS. According to EMS they state that he was going in and out of consciousness in the back of the squad which did not make a lot of sense to them as he was exposed to CO2 not carbon monoxide or other noxious chemicals. Upon arrival he was taken to room 9. Vital signs are stable with mild elevation in his blood pressure. He complains of a global headache with some mild nausea. His neuroexam is otherwise normal. I ordered a CT scan of his head due to the headache which was reviewed by radiology and is negative for acute findings. He was then medicated with Toradol. On reevaluation his neuroexam is remain normal. The results of his CT scan were discussed with him. On reevaluation he is feeling better. His for a female friend is with him in the emergency department and will take him home and keep an eye on him tonight. Medical Records Medical records narrative: [place] [address] CT Scan Report Signed Patient: JARON RODGERS MR#: [id number] : 1960 Acct:[id number] Age/Sex: 63 / M ADM Date: 08/11/24 Loc: ER Attending Dr: Ordering Physician: Mati Mark Date of Service: 08/11/24 Procedure(s): CT head/brain wo con Accession Number(s): [id number] cc: ANTHONY HOOKS ~ The [place] [id number] Patient Name: JARON RODGERS MRN: [facility]:[id number] date: 1960 Sex: M Assigned Patient Location: ER Current Patient Location: ER Accession/Order Number: [id number] Exam Date: 08/11/2024 23:29 Report Date: 08/11/2024 23:50 At the request of: MATI MARKER Procedure: CT head/brain wo con EXAM: CT head/brain wo con HISTORY: Dizziness and headaches. COMPARISON: None. TECHNIQUE: Axial images of the brain were obtained from the skull base to the vertex without contrast enhancement. Sagittal and coronal reformations were provided. FINDINGS: No acute intracranial hemorrhage, extra-axial fluid collection, midline shift or mass effect is seen. No space-occupying lesion is demonstrated. There is no evidence of hydrocephalus or an acute ischemic event. Vascular calcifications are seen along the course of the carotid siphon. Mucosal thickening is present within the ethmoid and sphenoid sinuses. The mastoids are well-aerated CT/CT head/brain wo con IMPRESSION: No CT evidence of an acute intracranial process. Discharge Plan Discharge Chief Complaint: Headache Clinical Impression: Headache Patient Disposition: Home, Self-Care Time of Disposition Decision: 00:26 Condition: Good Prescriptions / Home Meds: No Action atorvastatin 80 mg tablet 80 mg PO DAILY biotin 10,000 mcg capsule 10,000 mcg PO BID gabapentin 400 mg capsule 400 mg PO TID losartan 100 mg tablet 100 mg PO DAILY magnesium oxide 400 mg (241.3 mg magnesium) tablet 400 mg PO DAILY topiramate 50 mg tablet 50 mg PO BID desvenlafaxine succinate 50 mg tablet extended release 24 hr 50 mg PO DAILY sotalol 80 mg tablet 80 mg PO DAILY tramadol 50 mg tablet 50 mg PO Q12H esomeprazole magnesium [Nexium] 40 mg capsule,delayed release(DR/EC) 40 mg PO DAILY 28 Days Qty: 28 0RF Print Language: Cymraes Instructions: General Headache (ED) Referrals: ANTHONY HOOKS [Primary Care Provider] - 1 week
--- OUTSIDE RECORDS SUMMARY | 2024-08-11 22:59 | XMS_ITS | CCD ---
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 Name Role Phone ANTHONY MARTINEZ Unavailable Unavailable ANTHONY MARTINEZ Unavailable Unavailable NONE, XXXX Primary Care Physician Unavailab MD Archie Shepard Primary Care Provider DO Emir Tejada Emergency Provider MD Jd Mcdowell Emergency Provider JESSEE ., [...] Unavailable MD Archie Hooks Primary Care Provider DO Alexy Albarran Emergency Provider MD Chantel Hassan Admit Provider [phone] MD Chantel Hassan Attending Provider Archie Hooks Unavailable Unavailable Unavailable DO Myriam Galan Other Provider [phone] ZAKI Alvarez Attending Provider MD Archie Hooks Primary Care Provider [phone] MD Benny Capps Admit Provider MD Benny Capps Attending Provider LEONEL SANDOVAL Attending Unavailabl e Jes[place], Dr. Archie Loja [facility] Care Unadurga ilLEONEL Reyna Referring Unavailabl e Jessee, Dr. Archie Loja Referring Unava ilable Jessee, Dr. Archie Loja [facility] Care LEONEL Carranza Attending UnavailMD Archie Alonso Primary Care Provider [phone] MD Serafin Capps Admit Provider MD Buddy Rome Attending Provider DO Myriam Galan Attending Provider [phone] Jaime, . Leonel Wilkinson Attending Unalizy Sandoval, Ms. Leonel Wilkinson Referring Unavai lable Jes[place], Dr. Archie Loja [facility] UnaLópez Ron Attending Unavailable López Galan Referring Unavailable Hemealejandra, Dr. Archie Loja [facility] Care Unava ilable Mazariegos, Dr. Adelita Xie Attending Lorie vailable Mazariegos, Dr. Adelita Xie Referring Lorie vailable Hemealejandra, Dr. Archie Loja [facility] Unava ilvania Sandoval, Ms. Leonel Wilkinson Attending Ashley Sandoval, Ms. Leonel Wilkinson Referring Unavai lable Jessee, Dr. Archie Loja [facility] Unava ilvania Sandoval, Tristan Wilkinson Attending Ashley Sandoval, Ms. Leonel Wilkinson Referring Unavai lable Hemealejandra, Dr. Archie Loja [facility] Unava ilvania Hooks MD, Archie Ljoa Primary Care Provider MD Archie Hooks Primary Care Provider DO Myriam Galan Attending Provider DO Dalton Hernandez Emergency Provider Unavabridgette HOOKS, ARCHIE Soriano Primary Care Physician Unavail able ZAKI Rush Emergency Provider [phone] LÓPEZ GALAN Attending Unavailable ARCHIE HOOKS Primary Care Unavailab le MCGUINN, LÓPEZ P Attending Unavailable LÓPEZ GALAN Referring Unavailable HEMEYER, [facility] Unavailab le MCGUINN, LÓPEZ P Referring Unavailable HEMEYER, [facility] Unavailab le MCGUINN, LÓPEZ P Referring Unavailable HEMEYER, [facility] Unavailab le MCGUINN, LÓPEZ P Attending Unavailable MCGUINN, LÓPEZ P Referring Unavailable HEMEYER, [facility] Care Unavailab le COOK, Víctor P Attending Unavailable COOK, Víctor P Admitting Unavailable COOK, Víctor P Referring Unavailable COOK, Víctor P Attending Unavailable COOK, Víctor P Attending Unavailable COOK, Víctor P Attending Unavailable COOK, Víctor P Referring Unavailable COOK, Víctor P Attending Unavailable COOK, Víctor P Admitting Unavailable COOK, Víctor P Attending Unavailable COOK, Víctor P Admitting Unavailable Hemeyer , Archie Soriano Primary Care Provider Archie Hooks MD Primary Care Provider Archie Hooks MD Primary Care Provider Serafin Capps Attending Unavailab Serafin Mckinnon Admitting Unavailab aurelio Hooks, Archie Soriano Primary Care Unavailable LUIS RUBY Attending Unavailable JESSEE, ARCHIE Soriano Attending Unavailable LUIS RUBY Attending Unavailable LUIS RUBY Attending Unavailable HEMEALEJANDRA, ARCHIE Soriano Attending Unavailable HEMEALEJANDRA, ARCHIE Soriano Attending Unavailable HEMEALEJANDRA, ARCHIE Soriano Attending Unavailable Allergies Allergy Classification Reported Allergen(s) Allergy Type Date of Onset Reaction(s) Facility [facility] (2 sources) Contrast media; Translations: [contrast media (iodine-based)] Substance Allergy Weal (disorder) [facility] (1 source) IODINATED CONTRAST- ORAL AND IV DYE; Translations: [IODINATED CONTRAST- ORAL AND IV DYE] Propensity to adverse reactions to drug (disorder) 5 [facility] Repository (6 sources) Contrast media; Translations: [contrast media (iodine-based)] Drug allergy Weal (disorder) [facility] (8 sources) Seafood; Translations: [Seafood] Drug allergy Unknown (qualifier value) [facility] (20 sources) Iodinated Contrast Media; Translations: [Iodinated Contrast Media] Allergy to substance 3 Unknown [facility] (1 source) Iodine (And Iodine Containting Drugs) Drug allergy (disorder) 3 [facility] Repository (11 sources) Shellfish; Translations: [SHELLFISH DERIVED] Drug allergy (disorder) 3 Unknown [facility] Repository (19 sources) Shellfish-deriv ed Products; Translations: [Shellfish-deri lizy Products] Allergy to drug (finding) 3 [facility] DO Work Phone: (1 source) Shellfish Drug allergy (disorder) 3 [facility] Repository Medications Current Medications Medication Drug Class(es) Dates Sig (Normalized) Sig (Original) 24 hr alfuzosin hydrochloride 10 mg extended release oral tablet (1 source) alpha-Adrenergic Renetta Start: 01-17-2024 take 1 tablet by mouth once daily alfuzosin 10 mg ER Tab 10 mg = 1 tab(s), Oral, Daily, # 30 tab(s), Refills(s) 11, Pharmacy: [facility] #[id number], 184, cm, 01/17/24 10:43:00 EDT, Height/Length Dosing, [...] Start: 07-20-2023 take 1 tablet by kristen twice daily biotin 1 tablet, Oral, BID, Refills(s) 0 Start Date: 07/20/23 Status: Ordered Start: 01-29-2022 take 2 capsules by m outh twice daily Biotin Active 02136 MCG PO Twice daily January 28, 2022 11:00pm 2 CAPSULES TWICE DAILY Start: 01-29-2022 take 2 capsules by m outh twice daily Biotin Active 55403 MCG PO Twice daily January 29, 2022 [...] BID, # 10 tab(s), Refills(s) 0, Pharmacy: [facility] #[id number], 185, cm, 07/17/23 5:45:00 EST, Height/Length Dosing, [...] Daily Active take 2 tablets by mo [facility] once daily desvenlafaxine succinate (Pristiq) 25 mg 24 hour tablet Take 2 tablets (50 mg) by mouth once daily. Active esomeprazole 40 mg delayed release oral capsule (1 source) Proton Pump Inhibitor Start: 07-30-2024 take 1 capsule by mouth before mealtime esomeprazole (NexIUM) [address] capsule Take 40 mg by mouth in the morning. Take before meals. 07/30/2024 Active famotidine 40 mg oral tablet (5 [...] Start: 05-31-2023 take 1 capsule by mo ut four times daily gabapentin (Neurontin) 400 mg capsule Take 1 capsule (400 mg) by mouth 4 times a day. 05/31/2023 Active Start: 01-29-2022 take 1 capsule by mo [facility] three times daily gabapentin 400 mg Cap [...] 25, 2021 12:00pm take 1 tablet by kristen once daily Losartan Potassium 100 MG Oral [...] daily Oxycodone Active 5 MG PO Daily 5 June 23, 2023 pantoprazole 40 mg delayed release [...] Active sotalol hydrochloride 80 mg oral tablet (18 sources) Antiarrhythmic Start: 10-27-2023 End: 12-10-2024 take [...] 15, 2017 12:00am September 03, 2018 10:14pm Ajmxkiqu-Jbl-Ri-Lycopen- Lutein (Centrum Silver) 0.4-300-250 mg-mcg-mcg Tablet (10 sources) Start: 09-15-2017 End: 09-03-2018 take 1 tablet by mouth once daily Hftcwbsl-Yaz-Eq- Lycopen-Lutein (Centrum Silver) 0.4-300-250 mg-mcg-mcg Tablet Discontinued 1 TAB PO Daily September 15, 2017 1:00am September 03, 2018 11:14pm Start: 09-15-2017 End: 09-03-2018 take 1 tablet by mouth once daily Crvugtqw-Tzf-Nn-Lycopen-Lutein (Centrum Silver) 0.4-300-250 mg-mcg-mcg Tablet Discontinued 1 TAB PO Daily September 15, 2017 12:00am September 03, 2018 10:14pm 24 hr nitroglycerin 0.2 mg/hr transdermal system (3 sources) Nitrate Vasodilator Start: 05-27-2023 End: 10-27-2023 apply 0.2 mg transdermal route every hour nitroglycerin (Nitrodur) 0.2 mg/hr patch Place 1 patch on the skin once daily. 0 05/27/2023 10/27/2023 Discontinued (Other) Start: 09-28-2023 apply 1 dose transde rmal route once [...] Onset: 3 04-21-2022 Episodic Acute myocardial infarction (14 sources) Myocardial infarction; Translations: [Non-ST elevation (NSTEMI) [...] Resolved: 3 10-19-2021 Chronic Diverticulosis and diverticulitis (16 sources) Diverticulosis of sigmoid colon; Translations: [Diverticulosis [...] Onset: 3 10-19-2021 Chronic Hyperplasia of prostate (16 sources) Benign prostatic hypertrophy with outflow obstruction; [...] Other hereditary and degenerative nervous system conditions (16 sources) Intention tremor; Translations: [Other specified forms of tremor] Onset: 3 01-17-2023 Chronic Other liver diseases (10 sources) Lesion of liver; Translations: [Liver disease, unspecified] 04-21-2022 Chronic Other nervous system disorders (1 source) Polyneuropathy, unspecified; Translations: [POLYNEUROPATHY UNSPECIFIED] Onset: 2 Chronic Other nervous system disorders (14 sources) Perineurial cyst; 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] Onset: 3 01-17-2023 Chronic Other nervous system disorders (17 sources) Polyneuropathy; Translations: [Polyneuropathy, unspecified] Onset: 3 01-17-2023 Chronic Other nervous system disorders (2 sources) Tremor; Translations: [Tremor, unspecified] 04-25-2024 Episodic Other nutritional; endocrine; and metabolic disorders (19 sources) Hypercalcemia; Translations: [Hypercalcemia] Onset: 3 06-01-2023 Chronic Pulmonary heart disease (14 sources) Pulmonary hypertension; Translations: [Pulmonary hypertension, unspecified] Onset: 3 01-17-2023 Chronic Residual codes; unclassified (14 sources) Sleep dysfunction with arousal disturbance; Translations: [...] Date Documented Da te Episodic/Chronic Anxiety disorders (14 sources) Anxiety; Translations: [Anxiety disorder, unspecified] Onset: 06-15-2015 Resolved: 05-23-2023 05-23-2023 Chronic Calculus of urinary tract (20 sources) Kidney stone; Translations: [Urinary bladder stone] Onset: 01-17-2023 Resolved: 05-23-2023 10-19-2021 Episodic Cardiac dysrhythmias (20 sources) Drug-induced bradycardia; Translations: [Bradycardia, unspecified] Onset: 06-01-2023 Resolved: 04-23-2024 09-15-2017 Episodic Conditions associated with dizziness or vertigo (14 sources) Dizziness and giddiness; Translations: [Dizziness and [...] IMMUNIZATION] Onset: 02-02-2022 Episodic Malaise and fatigue (14 sources) Asthenia; Translations: [Weakness] Onset: 01-17-2023 Resolved: 05-23-2023 05-23-2023 Episodic Mood disorders (20 sources) Acute depression; Translations: [Depressive disorder] Onset: 02-02-2022 Resolved: 05-23-2023 10-19-2021 Chronic Nonspecific chest pain (20 sources) Chest pain; Translations: [Chest pain, unspecified] Onset: 02-06-2023 02-25-2021 Episodic Other aftercare (1 source) [facility]FP (current) use of aspirin; Translations: [CORRECTION CURRENT USE OF ASPIRIN] Onset: 02-02-2022 Episodic Other aftercare (1 source) Other [facility] (current) drug therapy; Translations: [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] Onset: 02-02-2022 Episodic Other aftercare (16 sources) Polypharmacy ; Translations: [Other [facility] (current) drug therapy] Onset: 12-02-2023 12-02-2023 Episodic Other connective tissue disease (14 sources) Neurogenic claudication; Translations: [Other symptoms and signs involving the nervous system] Onset: 01-17-2023 01-17-2023 Episodic Other ear and sense organ disorders (14 sources) Subjective tinnitus; Translations: [Tinnitus, unspecified ear] Onset: 09-08-2004 Resolved: 05-23-2023 05-23-2023 Episodic Other nervous system disorders (14 sources) Skin sensation disturbance; Translations: [Unspecified disturbances of skin sensation] Onset: 01-17-2023 01-17-2023 Episodic Other nervous system disorders (14 sources) Hyperreflexia; Translations: [Abnormal reflex] Onset: 01-17-2023 01-17-2023 Episodic Other nervous system disorders (14 sources) Ataxia; Translations: [Ataxia, unspecified] Onset: 01-17-2023 Resolved: 05-23-2023 05-23-2023 Episodic Other screening for suspected conditions (not mental disorders or infectious disease) (20 sources) Echocardiogram abnormal; Translations: [Nonspecific (abnormal) findings on radiological and other examination of other intrathoracic organs] Onset: 06-01-2023 Resolved: 04-23-2024 05-01-2023 Episodic Peripheral and visceral atherosclerosis (14 sources) Abdominal aortic atherosclerosis; Translations: [Atherosclerosis of aorta] Onset: 01-17-2023 Resolved: 05-25-2023 05-25-2023 Chronic Residual codes; unclassified (14 sources) History of hematuria; Translations: [Personal history of other specified conditions] Onset: 01-24-2024 01-24-2024 Episodic Residual codes; unclassified (14 sources) Other specified personal risk factors, not [...] Onset: 02-02-2022 Episodic Unclassified (3 sources) Onset: 03-29-2024 03-29-2024 Results Test Name Value Interpretation Reference Range Facility ALL CBC WITH AUTO DIFFon BASOPHILS ABSOLUTE AUTO 0 [facility] Basophils/100 WBC (Bld) 0.4 % 0.2 - 2.0 % [facility] Eosinophils/100 WBC (Bld) 1.3 % 0.9 - 7.0 % [facility] Erythrocyte distribution width (RBC) [Ratio] 11.5 % 11.0 - 15.0 % [facility] Hematocrit (Bld) [Volume fraction] 50.5 % 42.0 - 54.0 % [facility] Hemoglobin (Bld) [Mass/Vol] 18.1 g/dL High 14.0 - 18.0 g/dL [facility] IMMATURE GRANULOCYTES ABS AUTO 0.01 [facility] Immature granulocytes/100 WBC (Bld) 0.2 % 0.0 - 0.5 % [facility] Interpretation and review of laboratory results Abnormal [facility] LYMPHOCYTES ABSOLUTE AUTO 2 [facility] Lymphocytes/100 WBC (Bld) 44.7 % 20.5 - 60.0 % [facility] MCH (RBC) [Entitic mass] 33.8 pg 25.9 - 34.0 pg [facility] MCHC (RBC) [Mass/Vol] 35.8 g/dL High 29.9 - 35.2 g/dL [facility] MCV (RBC) [Entitic vol] 94.2 fL High 80.0 - 94.0 fL [facility] MONOCYTES ABSOLUTE AUTO 0.7 [facility] Monocytes/100 WBC (Bld) 15.1 % High 1.7 - 12.0 % [facility] NEUTROPHILS ABSOLUTE AUTO 1.7 [facility] Neutrophils/100 WBC (Bld) 38.3 % Low 43.0 - 75.0 % [facility] Platelet mean volume (Bld) [Entitic vol] 10.8 fL 9.5 - 13.5 fL [facility] TB EO # 0.1 [facility] PLT 144 Low [facility] RBC 5.36 [facility] WBC 4.5 [facility] ALL CBC WITH AUTO DIFFon BASOPHILS ABSOLUTE AUTO 0 [facility] Basophils/100 WBC (Bld) 0.6 % 0.2 - 2.0 % [facility] Eosinophils/100 WBC (Bld) 2.2 % 0.9 - 7.0 % [facility] Erythrocyte distribution width (RBC) [Ratio] 11.5 % 11.0 - 15.0 % [facility] Hematocrit (Bld) [Volume fraction] 45 % 42.0 - 54.0 % [facility] Hemoglobin (Bld) [Mass/Vol] 15.5 g/dL 14.0 - 18.0 g/dL [facility] IMMATURE GRANULOCYTES ABS AUTO 0.02 [facility] Immature granulocytes/100 WBC (Bld) 0.3 % 0.0 - 0.5 % [facility] Interpretation and review of laboratory results Abnormal [facility] LYMPHOCYTES ABSOLUTE AUTO 2 [facility] Lymphocytes/100 WBC (Bld) 27.8 % 20.5 - 60.0 % [facility] MCH (RBC) [Entitic mass] 33.3 pg 25.9 - 34.0 pg [facility] MCHC (RBC) [Mass/Vol] 34.4 g/dL 29.9 - 35.2 g/dL [facility] MCV (RBC) [Entitic vol] 96.6 fL High 80.0 - 94.0 fL [facility] MONOCYTES ABSOLUTE AUTO 0.5 [facility] Monocytes/100 WBC (Bld) 7.4 % 1.7 - 12.0 % [facility] NEUTROPHILS ABSOLUTE AUTO 4.5 [facility] Neutrophils/100 WBC (Bld) 61.7 % 43.0 - 75.0 % [facility] Platelet mean volume (Bld) [Entitic vol] 10.7 fL 9.5 - 13.5 fL [facility] TBH EO # 0.2 [facility] TB PLT 189 [facility] TB RBC 4.66 Low [facility] WBC 7.3 [facility] Coding Summary.on 01-23-2024 Coding Summary. IPSJApnj07FMx5oLv+PG hlYWQ +ZF6CFVPmR40blQIdaJ4rX2NB TElOSywgQVBQTElOSyIgbmFtZ F5cjBSoTYUp IC8+BO1sYVMcPfshwNWxu7D7l TR9X99qgy1lIHtsfIF1GKAoRu Uphumur7obkIo9JBqrTfjxOxO t CYZfuH98GVC5pY23Do35nVXbb BXsl2thsKv0EeKgDSXjKXF9xW atMBdkx2TnZLPmP12kxSLkh6J 6 PKVsvRgdbDHeTfMufJS8aJ4nU Qnizfqsi0xhyxvmXqe6pf87tZ Lhh1F7nNK1B2VbbpG7GVRlyQV g HfjcrGZNpY8iofqnw5iejjcqZ eIfZCYyVKs8IEt3EZQjsXkqEc FpBY93BLT4EFZlamVzO1PeNOS s pHfwKmF0y9E7Wj2PB8NKTgkbA 1VNTUFSWTwvdGQ+AD39mj53J6 GiRtqlIyq7GNAxVVR2lMO4mJ0 n UKHbPZiao6L3jFO6M4LuypZyn s6aw1mpIRHlYXaiR42psPLdd7 T9JTNfcLD2PPDiuLufJuQoiD6 3 Oyc+PTCwnAcys1EePbctn7yot 3tdlWg4CwkbRIAsftQzyLltQH W0n7ZjOm2xWHQlrTH5eCW8tB4 i DlZzScV6KVmlU405FbOpoPVjJ xdiH57uQ8UdqGM+MNFvCvo1ZH AkgMdjZY3wS7EfSDYqnqoevMI m lEyeZM7oNHAlwjyeNMVplM6jS GTwR3z5TmBiUnE0XGyqJ2XkDW GmbvwpDe63dE6xNiFlXnL8HCl u M4IpvhH9UMBdzTPxQUbjBTB0A 14iy0C7YGUcBXFhWMB3eUE6qZ 1hbGlnbjogbGVmdDsgdmVydGl j OFusPSffP934CWQbwYjgDnEbC GluZyBEYXRlOiAgMDYvMjUvMj AyNDwvdGQ+DHKmTOV7zBweAGC n qLZyIUjhEn8veToksUkbCW2wX DTzepzgDZSfsI5xKHMabZEdbH kfXE4mUFFzzrcko354HmWnFAL 0 DWFpnJKiS0GttU1yApVfFPFjX VAoN5TylRTiGTsvL323RTgfJh Q4LDVghmVbO0SyIGYgiNopNgR 0 v0R7Yw3Oq8JbknoyL9UdwDYlZ wDsTlaqVIw6B0QeAesixRZ+PC 49XULnVW93UYx6GQA2tAorDMy i DEIvK1SxbI6sEiXySJSwIADgW yc+PHRhYmxlIHdpZHRoPScxMD QwXpWxgOzgJV3sSy3bIPBfZJI v tAfsyYUzBrInu7bjKTKgSDbhC P8zrIzzG3XzfIP7KHWrx4d6Vu 63Q05qQ1QzwNY+DLNauAR2kAF 0 fD3gZlTxMaZ2BIcqK906KbJwo MOjRygrk4vcc9qofJt5MdS3ZE WwghXjtKekRRP3k7PbOj71A96 s IHdpZHRoPSIxNSUiIHZhbGlnb g3cpY9iDg3+OUTjgDV3jWA4jT 4dFaNmXaX0DZhwK862RvSozXK v Ztxhx4ugw3rdcNl5XaQpPARro wFuuDmtVFL3m5JlUl92A9GygK tih1CxAwg8dq04aOCor0Z4nQX 9 Q2StKRMkyhvlgOBvvIboBF3kE YByloihOJUzkM4tGNFdR7s6Bf VpQnN8MPydY1SmzsT3SMBrwMS g IGObjHMJiG5ntrhab8rjtpoaG zZbMFSvZEk9PSo5FHQqfRqyTu WzYDB2WkX3SET1hGSceU7toUd n zldhrT2nZea+IKE6tLWgoTRXN L7qCxfvqBY+UMQuTTP0uInpWC vdEATvxY0fMOCnR0y7RaAsNtJ 1 ZYbgK4QdtvP5JBSnwWZkUSTig NBIcD1vtrlom5schaieNySrRN IuZNl9AQa2CQJzrQqjToSaOUF 0 MeC6HAG4eIFemJ1whTfqqcegd G9wOyc+WoqzrJfrKKC2DGf2S5 DoDsh7VHKiyZrnMP7mqCJoDYj u Sb6ffJuplGuaER5hPZPznvmvy 487VyQqs9ndNUXqzOTqEFmaWM D6H32ea3O4JDLsRDKvYHT9vXG 4 uM3plVkqgiftqXGfpKcasiSvl JlcZEtbSZblM560CLBleSzlBp BaWFc6Q4UcAms4PQObtPzeYU2 n xUMpVExiDj8ovSzimTliZR4zG YGsvxvfk771VaLqd2mmZZGyrU KhQLmxWYN5R18ox8D0DYSgSZW w LCB1lGF9oF6qxVjynimhxXTld CsiwhSrdRziWZwbGUteX502YT UgeTraKjUahSy0M5NcLve2ZMK z kAajHM7tcJZuSCqgSl0miTpac CygMS5yOTQlbbxbh625RuWzk1 hbDURsaHObNUxyAUT5H88mv1K 6 MTLmAVAvZDE3wNP2cK1coKojn jogbGVmdDsgdmVydGljYWwtYW lvD007XEAaiBdyYkHtdGrubzI g HEigFDz8G6IzUyoonHI+PC90Y TYhHY77rKUebVWje2zfrVf6Iq HwVTIvVSH7zDnsVXdql2NpMKG t E99tlBEva8V8MHZjcNghaCWoH vWrnOW7eY0pJYdlbbxqu7bxzq sgEiemd3otup03jT12L46qTOf p LALsZIMnTGRgZOLbcCsxfa0sl G9wIi8+YCJmuWM1oGL9eC4oYS WvLuA0ZNtgY119OxFqbPVvAzb j y7win9fksMq3DiK5CZKmupRfd TqdMOX6b4EnPs45T67sHEvgYB XtGQMrDCJbCNIjzOvekh4lxO1 w Ii8+MXYkzTQ8iQI7dJ3sUsBiS aR4MUwnV292LeJzwANoGujjT7 9vP7BobOV+VSNxOtd5NXKqkLu s CR4ovDMrFEjnLh0kODN8QiXtI eBsYGrpJ3HiBAEucakesbapvQ F9TQWlMLChfU95Jf3vuVtiYXB w gOWDbK8iaxcfk3agabcdEkXmU QPzUIu3NJh9LTOfsSkfDkJiKS W7VbE2QFA1iPVxtX2iaJvvetw g bE2aH4WuLKJdnkflZc61oV3tY bLcGhG0VGgzTzq+RkFSUkFSLC ELW8ENXTfvVJrqtES+PHRkIHN 0 dJcpIFxqOIAsgB5eWDSxF3y3P zCmFqG1KXvxZ6QsPFHexgwhGo 58eU8lKtVyUmL1PClkZ3YrwaM 6 PFDbsQCuCIuhCRI4H69ms3L9Q CKcFZFlQVA6bBB9qG3izXlpca ogbGVmdDsgdmVydGljYWwtYWx p B043IJWijCpkLpAzIlD8BdC8H mP1T1RsEso1AYZgrMyfMK9kgA FyMWwdBo4trKckbRpmLL3jFQC p awdeMJQdiG2cUBZxcYEjfYymB S7qIJFunhens145ObJsXZC7FL LazWPzI1OvrG9bWpLwDNEmNQX w E8CukXKoFBcbO784ZQxhMoG9I XDptmPfX3HmZAArzDurErQ4b7 F7Xw03XUWCSXKjmtnffER+PHR k ALQ0sOeuUOsySJHuvH4yXZNcK 9t3UeLkSnU7MSmjF5CuIXKhvg prDu34wG7yGiQrUqL8NRiaU8D v pqN5JCOypNUcHYriWCL5W20fz 2X2KJKhLWJnQOD8sNI7zA0rpD lnbjogbGVmdDsgdmVydGljYWw t JSwbL408VMYatLtmXi3trPA6V 3WkOnr8UTHelFxfZX3zfLKoEP wrTq6ljWamrTznGY5bYVCdpjn w ZPFkbM8pCVMmcYIppKkhAI9vQ ELbfndyn449EfZrVRZ6XFJsnJ EyS6EzyA4kCtSlPWNfMNKlO7M l pZQyGHdyB043WFpdDvY1YYIcu tDhB3BpSOJodLrqBpP7d8X1Ow 0OyBZlIMRrTB50MU81BT94U4F y PjwvdGFibGU+PHRhYmxlIHdpZ ORvBYbjMHWlExIvrBjrXD3vVo 5tEFXzHFJbvSiguJSsKiUlv1n s YWZtYKdfFF8qyJiqN9NogSR9X HLyo2k5Cj07N84qK8LxvWE+PG XqxNU9mZK8fP3pIrGzRcA7OHa p D957CpDgoDKyMbmcn9pdh0thh Mc3FiEdNWZcgqXxuNyhWYV5c9 UnQz77K16dCTebRQAtFUFpVIT i LVIzkKlgaz8jbW6tCn9+PGNvb BH9sPS6vJ7yGgCqWsI0FQwmN9 98XyIohIJiNtrwK71qF8GsvOA + MJGzCff8QWXumAppVW2vyVJrQ NalFz6dLUN5LdUtOzOwETbyR0 PwBULdxkqzjbmmiGJ6TADlOJA w lL89Do0jgYyxSm5rIRSlZGY3H ALesCSdG6HkwO8aSdMwIHVxEL GuA7WnvKSoSJofW871PBwzDrS 7 NKEyrsFcU3YlIGMesIejHtJ6l 7R8Jh0WvPmbjUStJU1qXrRqQQ f4F4VcSmp7MQAxeLbhIQ1giOD k LBwnAl9dqHajbRciKS4qQTYgd wdnp606BcKbk0prAXHovVAbXA ocRRN4U84vy4I4HMKbTSYdXQA 7 yHU2wH5vxYelpedlxXIgsMykj gIvyAqcXNluXSycO744DSKfvM pcDiYFOfx5M1BoPxe6ZUDeuNi s SG3feXKeFTvmMs9eoZwysSdfI Q9pDWHwomqhe158XfMha0weEB PpcHFoJPhxFPK0K15ry8I9PCV w MTGoSIO5eSS1pH1fmIivhdyus GVmdDsgdmVydGljYWwtYWxpZ2 25ETCvnOwuGj8RJhf2J3ObSpb 0 BQWdjEswLB9suJAgKVrtDb9bl CmdyTzoEP8gQQFkfuxaq299Yw Hex3buJPCswPCkXVexQFX2T77 s r5K4ELLqKCPuPLB4tZE9yU4vy GlnbjogbGVmdDsgdmVydGljYW ytGOmrR851XWAjfGipUvEyuFC y OjwvdGQ+YA41el90S0TqOodwM ty4GEXsJEX5mQF2xK3mMHLsMX pqi9Y9lJU7F6KosxIfvw0tv8q s SGEeGTngD67ky (more content not included)... [facility] Screenson 01-18-2024 Screens [id number] Normal [facility] XR Abdomen 1 Viewon 01-18-20 24 [...] Nigel Mendoza MD Transcribed by: LULA Technologist: NEERAJ Technical Comments Radiation Dose: Ka,r in mGy = . DAP = . Normal [facility] Ambulatory Visit Summaryon 0 01-17-2024 Ambulatory Visit Summary [facility]ODG[facility] Myrna :1960 Visit Date:01/17/2024 Ambulatory Visit Instructions Your Diagnosis Ureteral stone BPH with urinary obstruction History of gross hematuria Your Care Team Attending Physician - Víctor BRADY MD Primary Care Physician - JESSEE MELENDEZ, ARCHIE Soriano This Is Your Medications List ciprofloxacin (Cipro [...] Víctor BRADY MD Where: [facility] Patient Educationon 01-17-20 Patient Education Urology [...] Follow these instructions at home: ? Take vutx-fku-rsloium and prescription medicines only as told by [...] the medicine (more content not included)... Normal [facility] Urology Office/Clinic Noteon 01-17-2024 Urology Office/Clinic [...] with voice recognition artificial intelligence software, specifically [employer], [employer] and or [employer]. Substitutions may have occurred due to the inherent limitations of voice recognition and artificial intelligence software. 1. Ureteral stone (N20.1: Calculus of ureter) None seen on current KUB. No stones were identified overlying the proposed outline of the kidneys to my review. [facility] ER f/u to a visit from 06/23/23 c/o Lt lower abdominal pain. CT AP w/o Con 06/23/23 - punctate BL stones with a 2-3mm obstructing stone in the Lt UPJ w/ moderate hydro, there is a 3x7mm stone posteriorly in the bladder. Labs 06/23/23 - BUN 18, Crea 1.16 [facility] ER on 06/28/23 c/o worsening pain in [...] - BUN 11, Crea 0.89 KUB 01/15/24 [facility] [place]. Upon personal review, there [...] Contact Information Víctor BRADY MD, URL [address] [address]- Additional Instructions: 1 year w/ KUB Patient Education Benign Prostatic Hyperplasia ISofy, personally scribed for Dr. Brady on 01/17/2024 11:08:17. . Documenta (more content not included)... Normal [facility] Comment on above: Result Comment: Elec tronically Signed By: Víctor BRADY MD\.br\Date and Time Signed: 01/17/24 11:50 EDT\.br\Electronically Co-Signed By: Sofy Guzman\.br\Date and Time Co-Signed: 01/17/24 11:08 EDT Consent for Treatmenton 12-29 Consent for Treatment [id number] Normal [facility] ECG 12 Leadon 12-11-2023 Sinus bradycardia Otherwise normal EKG QTc 449 ms [facility] Work Phone: ECG 12 Leadon 10-28-2023 [facility] Work Phone: [employer] Documentson 0 08-03-2023 [employer] [id number] Normal [facility] Calculus Analysison 07-28-20 Calcium oxalate monohydrate (Stone) [Mass fraction] 40 % Invalid Interpretation Code [facility] Comment on above: Order Comment: BLADD ER CALCULUS Performed By: #### 1 [id number] ####[facility] [address] [place] [address] Calculus analysis [Interp] Comment Invalid Interpretation Code [facility] Comment on above: Order Comment: BLADD ER CALCULUS Result Comment: Calc ium phosphate (hydroxyl form) includes hydroxyapatite, amorphous calcium phosphate, and whitlockite. Hydroxyapatite is the most common of the calcium phosphate salts found in human kidney stones. Performed By: #### 1 [id number] ####[facility] [address] [place] [address] Color (Stone) Patel Invalid Interpretation Code [facility] Comment on above: Order Comment: BLADD ER CALCULUS Performed By: #### 1 [id number] ####[facility] [address] [place] [address] Composition Comment Invalid Interpretation Code [facility] Comment on above: Order Comment: BLADD ER CALCULUS Result Comment: Perc entage (Represents the % composition) Performed By: #### 1 [id number] ####[facility] [address] [place] [address] Disclaimer: Comment Invalid Interpretation Code [facility] Comment on above: Order Comment: BLADD ER CALCULUS Result Comment: This test was developed and its performance characteristics determined by [employer]. It has not been cleared or approved by the Food and Drug Administration. Performed at: [address] [id number] PhD Sosa Yun Performed By: #### 1 [id number] ####[facility] [address] [facility] [place] [address] Hydroxyapatite: 60 % Invalid Interpretation Code [facility] Comment on above: Order Comment: BLADD ER CALCULUS Performed By: #### 1 6231816 ####[facility] [address] [facility] [address] Laboratory comment Talha (Report) Comment Invalid Interpretation Code [facility] Comment on above: Order Comment: BLADD ER CALCULUS Result Comment: Phys godfrey questions regarding Calculi Analysis contact [facility] at: [phone]. Performed By: #### 1 9383037 ####[facility] [address] [facility] [address] Please Note: Comment Invalid Interpretation Code [facility] Comment on above: Order Comment: BLADD ER CALCULUS Result Comment: Calc karthikeyan report will follow via computer, mail or reading efficiency course director delivery. Performed By: #### 1 [id number] ####[facility] [address] [facility] [address] Size (Stone) [Entitic vol] 4x4 Invalid Interpretation Code [facility] Comment on above: Order Comment: BLADD ER CALCULUS Result Comment: Ac duncan. Performed By: #### 1 6707744 ####[facility] [address] [facility] [address] Specimen source subject Nom Comment Invalid Interpretation Code [facility] Comment on above: Order Comment: BLADD ER CALCULUS Result Comment: Not provided Performed By: #### 1 7118723 ####[facility] [address] [facility] [address] Stone Photo Comment Invalid Interpretation Code [facility] Comment on above: Order Comment: BLADD ER CALCULUS Result Comment: Phot ograph will follow under a separate cover Performed By: #### 1 [id number] ####[facility] [address] [facility] [place] [address] Weight (Stone) 14.0 mg Invalid Interpretation Code [facility] Comment on above: Order Comment: BLADD ER CALCULUS Performed By: #### 1 [id number] ####[facility] [address] [place] [address] Postoperative Documentson Postoperative Documents [id number]#1.00TIFF Normal [facility] Main OR Intraoperative Recor don 07-25-2023 Main OR Intraoperative Record IntraOp Document Type FT Summary Primary Physician: Víctor BRADY MD Finalized Date/Time: 07/25/23 12:30:04 Pt. Name: ANA MARIAFREEDOM/Sex: 1960 Male Med Rec #: [id number] Physician: Víctor BRADY MD Financial #: [id number] Pt. Type: A Room/Bed: [place] [address] Admit/Disch: 07/20/23 11:45:05 - 07/20/23 16:30:00 Institution: [...] 1 Entry 2 Entry 3 Case Attendee Chris Salazar MD, Julio C Toro Role Performed Anesthesiologist of Surgeon - Primary Water Resources Program Director - Primary Record Time In 07/20/23 14:26:00 [...] Entry 4 Entry 5 Case Attendee Amarilis Velarde(R)Nayana Role Performed Scrub - Primary Motor Vehicle Field Representative Time In 07/20/23 14:26:00 07/20/23 14:26:00 Time [...] MIAN Herbert MD, Víctor Gonzáles, Julio C Pedraza Dellinger, Sydney A, Barnes RT(R)Nayana Time Out Complete 07/20/23 14:35:00 Outcomes Met? [...] BLADDER. Primary Procedure Yes No Primary Surgeon MIAN MELENDEZ, Víctor BRADY MD, Víctor Gonzáles Start 07/20/23 14:35:00 07/20/23 14:35:00 Stop 07/20/23 [...] 1 Skin Int (more content not included)... Normal [facility] Progress Note-Physicianon Progress Note-Physician Patient: FREEDOM RODGERS Age: 62 years Sex: Male : 1960 Associated Diagnoses: None Author: MD Esthela, Jacobo F Postoperative Information Postoperative disposition: Postoperative disposition: To PACU. Optimetrix number: Optimetrix number [id number]. Anesthetic utilized: General. Health Status Allergies: Allergic [...] when meets criteria ( To home ). [facility] Comment on above: Result Comment: Elec tronically Signed By: MD Esthela, Jacobo Hinds\.br\Date and Time Signed: 07/25/23 00:26 EST Progress Note-Physician Patient: FREEDOM RODGERS Age: 62 years Sex: Male : 1960 Associated Diagnoses: None Author: MD Esthela, Jacobo Hinds Preoperative Information Time patient last ate or [...] BID, # 10 tab(s), Refills(s) 0, Pharmacy: [facility] #[id number], 185, cm, 07/17/23 5:45:00 EST, Height/Length Dosing, [...] list: All Problems Smoker / SNOMED CT 484751710 / Confirmed Added secondary to documentation in Social History. Hypertension / SNOMED CT 2374770133 / Confirmed Hypercholesterolemia / SNOMED CT 41848009 / Confirmed Kidney stones / SNOMED CT 851393077 / Confirmed Headaches, cluster / SNOMED CT 364711957 / Confirmed Depression / SNOMED CT 3806414718 / Confirmed Ureteral stone / SNOMED CT 79197231 / Confirmed Atrial fibrillation / SNOMED CT 99890765 / Confirmed Gross hematuria / SNOMED CT 659547876 / Confirmed Histories Past Medical History: No active or resolved past medical history items have been selected or recorded. Family History: FH: Drug dependency Father Kidney stone Brother Asthma Father Hypertension Mother Father Arthritis Mother Migraine Mother Stroke Mother Hyperlipidemia Father Heart disease Father Diabetes Grandparent Alcohol dependency Father Procedure history: Cystoscopy (1628929528) on 07/20/2023 at 62 Years. Tonsillectomy and adenoidectomy (400839865) on 07/31/1970 at 9 Years. Ablation (248135590). Comments: 10/19/2021 9:54 Odette Anaya RN 1989 cardiac ablation Nerve graft (468217356). Comments: 10/19/2021 9:55 Odette Anaya RN 1989 Nerve graft Left wrist Colonoscopy (961203336). Social History Social & Psychosocial Habits Alcohol [...] results Radiology results ECG interpretation Condition Plan [place] [employer] Anesthesiologists (ASA) physical status classification: Class III. Anesthetic Preoperative Plan Anesthesia: General. . Anesthetic plan, risks, benefits, and alternatives discussed with the patient and/or family. Risks discussed: nausea, vomiting, headache, sore throat, dental injury, serious complications. Patient verbalized understanding. Communication: face to face with patient [address] [facility] Comment on above: Result Comment: Elec tronically Signed By: MD Esthela, Jacobo Hinds\.br\Date and Time Signed: 07/25/23 00:25 EST Consent for Anesthesiaon Consent for Anesthesia [id number]#1.00TIFF [facility] Discharge Instructionson Discharge Instructions [id number]#[address].00TIFF [facility] IntraOperative Documentson 1 09-21-2022 IntraOperative Documents [id number]#1.00TIFF [facility] Pre-Op Checkliston 3 Pre-Op Checklist [id number]#1.00TIFF [facility] XR Urography Retrograde Left on 07-21-2023 XR Urography Retrograde Left Exam Date/Time: 07/20/2023 14:57 EST Reason for Exam: Kidney stone Report IMPRESSION: INTRAOPERATIVE FLUOROSCOPY DISCUSSED. CLINICAL HISTORY: Kidney stone COMPARISON: NONE. FINDINGS: Left retrograde urogram. 5 images. 9.0 mGy. I see operative note for additional information. Ordering Provider: Víctor BRADY FINAL REPORT Dictated: 07/21/2023 9:26 am Johnnie Harvey MD Signed (Electronic Signature): 07/21/2023 9:26 am Signed by: Johnnie Harvey MD Transcribed by: LULA Technologist: LIT Technical Comments Radiation Dose: merna Miranda in mGy = 9.00 DAP = 385.48 [facility] Consent for Procedure/Surger yon 07-20-2023 Consent for Procedure/Surgery [id number]#1.00TIFF [facility] Consent for Treatmenton 07-01 Consent for Treatment [id number]#[address].00[address]FF [facility] Discharge Instructionson Discharge Instructions FREEDOM RODGERS [...] x-ray. Have a Dionna Chakraborty. Where: [address] [facility] [address] [place] [phone]- Business (1) Medications What How Much When Instructions Next Dose New ciprofloxacin (Cipro 500 mg Tab) 1 Tablets By Mouth 2 times a day Pickup at [facility] #[id number] Unchanged apixaban (Eliquis 5 mg oral tablet) [...] Mouth 2 times a day Pharmacy Information [facility] #[id number]: [address], [place] [id number] [phone] Test Results No qualifying data available. Allergies Seafood (Unknown) contrast media (iodine-based) (Hives) Problems Ongoing - Any problem that you are currently receiving treatment for. Atrial fibrillation Depression Gross hematuria Headaches, cluster Hypercholesterolemia Hypertension Kidney stones Smoker Ureteral stone [employer] [facility] [place], [place] Dr. Víctor Mo Post-operative Instructions for [...] out o (more content not included)... Normal [facility] Comment on above: Result Comment: Elec tronically Signed By: Petros PENNINGTON, Renetta Norris\.br\Date and Time Signed: 07/20/23 15:34 EST H&P Updateon 07-20-2023 H&P Update [id number]#1.00TIFF Normal [facility] Inpatient Patient Summaryon 07-20-2023 Inpatient Patient Summary [place] [id number] [facility] Clinical Discharge Instructions PERSON INFORMATION Name: FREEDOM RODGERS PHYSICIANS Admitting Physician: Víctor BRADY MD Attending Physician: Víctor BRADY MD PCP: ARCHIE HOOKS MD Discharge Diagnosis: Comment: PATIENT EDUCATION INFORMATION Instructions: Post Op Patient Instructions - FT (Custom) (Custom) Medication Leaflets: Follow up: With: Address: When: Víctor BRADY [address] [place] [address], [address], [place] [phone] [facility] (1) Comments: I was able to retrieve [...] an abdominal x-ray. Have a Dionna Chakraborty. MEDICATION LIST New Medications [facility] #[id number], [address], [place] [id number], [phone] ciprofloxacin (Cipro 500 mg Tab) 1 Tablets [...] Mouth 2 times a day. Comment: Normal [facility] Main OR PACU I Recordon 07-01 Main OR PACU I Record PACU Phase I Docum ent Type FT Summary Primary Physician: Víctor BRADY MD Finalized Date/Time: 07/20/23 15:36:00 Pt. Name: FREEDOM RODGERS/Sex: 1960 Male Med Rec #: [id number] Physician: Víctor BRADY MD Financial #: [id number] Pt. Type: A Room/Bed: [facility]/28 Admit/Disch: 07/20/23 11:45:05 - Institution: Case Times [...] DE LA TORRE RN 07/20/23 15:36 Normal [facility] Main OR PACU II Recordon Main OR PACU II Record PACU Phase II Doc ument Type FT Summary Primary Physician: Víctor BRADY MD Finalized Date/Time: 07/20/23 16:49:19 Pt. Name: FREEDOM RODGERS Myrna BeachB./Sex: 1960 Male Med Rec #: [id number] Physician: Víctor BRADY MD Financial #: [id number] Pt. Type: A Room/Bed: [place] [address] Admit/Disch: 07/20/23 11:45:05 - Institution: Case Times [...] By: Polly Avendano I 07/20/23 16:49 Normal [facility] Main OR Preoperative Recordo n 07-20-2023 Main OR Preoperative Record PreOp Document Type FT Summary Primary Physician: Víctor BRADY MD Finalized Date/Time: 07/20/23 14:31:31 Pt. Name: FREEDOM RODGERS /Sex: 1960 Male Med Rec #: [id number] Physician: Víctor BRADY MD Financial #: [id number] Pt. Type: A Room/Bed: [place] [address] Admit/Disch: 07/20/23 11:45:05 - Institution: Case Times [...] By: Julio C Pedraza 07/20/23 14:31 Normal [facility] Monitor Recordon 07-20-2023 Monitor Record [id number]#1.00TIFF Normal [facility] Monitor Record [id number]#1.00TIFF Normal [facility] Operative Reporton Operative Report Patient: DENA RODGERS Age: 62 [...] placed per urethra and a well-lubricated 22 Kittitian is urethroscope with 30 degree lens then passed into the bladder. Anterior urethra is within normal limits. Prostate is moderately obstructing in the lateral lobes. 3-1/2 cm long. Once into the bladder panendoscopy reveals no tumors, multiple tiny stone fragments and about a 5 to 6 mm stone. Both orifices are normal. No irritation, inflammation, or erythema. Utilizing the Will evacuator the stones were evacuated free from [...] it well. He is transferred to the [facility] and then back to PACU in [...] ml. Complications: None. Anesthesia type: General. Normal [facility] Comment on above: Result Comment: Elec tronically Signed By: Víctor BRADY MD\.br\Date and Time Signed: 07/20/23 15:08 EST Outpatient Surgery Discharge Instructionon 07-20-2023 Outpatient Surgery Discharge Instruction [place] [id number] Patient Discharge Instructions PERSON INFORMATION Name: FREEDOM RODGERS Date of : 1960 Current Date: 07/20/2023 15:03:31 PHYSICIANS Admitting Physician: Víctor BRADY MD Discharge Diagnosis: FREEDOM RODGERS Myrna has been given the following list of [...] THE NEAREST EMERGENCY ROOM OR CALL 911 IANA MARIA JOSEPH M, have received the attached patient education materials/instructions and have verbalized understanding: May we do a follow up call? Yes No I was present when discharge instructions were given Patient Signature ___ Date Clinican/Nurse Signature Date Follow up: With: Address: When: Víctor BRADY [facility] [address], [address], [place] [phone] Business (1) Comments: I was able to [...] to serve you. Thank you for choosing [facility] HERE ARE THE MEDICATION CHANGES THAT OCCURRED DURING YOUR HOSPITAL STAY New Medications [id number], [address], [place] [id number], [phone] ciprofloxacin (Cipro 500 mg Tab) 1 Tablets [...] PATIENT EDUCATION INFORMATION Instructions: Medication Leaflets: Normal [facility] Patient Education - Texton 1 09-20-2022 Patient Education - Text [facility] [place], [place] Dr. Víctor Mo Post-operative Instructions for [...] other reasons. If it is to remain mcc, however, changes of the stent are required [...] arrange for your post-operative appointment (with XRAY) [phone] Normal [facility] XR Abdomen 1 Viewon 07-20-20 23 [...] Signed by: Johnnie Harvey MD Transcribed by: DP Technologist: CC Technical Comments Radiation Dose: Ka,r in mGy = na DAP = na Normal [facility] Formson 07-19-2023 Forms [id number]#1.00TIFF Normal [facility] Outside Recordson 07-18-2023 Outside Records [id number]#1.00TIFF Normal [facility] ED Note-Physicianon 07-16-20 ED Note-Physician [id number]#1.00TIFF Normal [facility] Auto Diffon 07-14-2023 Basophils/100 WBC (Bld) 0.6 % Normal 0.0-2.0 [facility] Comment on above: Order Comment: Order Added by Discern Expert. Performed By: #### 1 7130192, 1250442, 2692378, 1363543, 52263762 ####[facility] [address] [place] [address] Basophils/Leukocytes Auto (Bld) [Pure # fraction] 0.0 E9/L Normal 0.0-0.2 [facility] Comment on above: Order Comment: Order Added by Discern Expert. Performed By: #### 1 0426355, 9593934, 0805035, 2107262, 64641024 ####[facility] [address] [place] [address] Eosinophils/100 WBC (Bld) 2.1 % Normal 0.0-8.0 [facility] Comment on above: Order Comment: Order Added by Discern Expert. Performed By: #### 1 0652876, 7936667, 3337366, 4111378, 36468047 ####[place] [address] [place] [address] Eosinophils/Leukocytes Auto (Bld) [Pure # fraction] 0.2 E9/L Normal 0.0-0.5 [facility] Comment on above: Order Comment: Order Added by Discern Expert. Performed By: #### 1 4546972, 5290150, 0786531, 7089632, 23085126 ####[address] [address] Lymphocytes/100 WBC (Bld) 22.3 % Normal 14.0-50.0 [facility] Comment on above: Order Comment: Order Added by Charissa Expert. Performed By: #### 1 7410808, 5497696, 2043970, 8609545, 02434716 ####[address] [address] Lymphocytes/Leukocytes Auto (Bld) [Pure # fraction] 1.6 E9/L Normal 1.0-4.0 [facility] Comment on above: Order Comment: Order Added by Charissa Expert. Performed By: #### 1 3821963, 5998522, 5452863, 4361797, 64030337 ####[address] [address] Monocytes/100 WBC (Bld) 6.9 % Normal 4.0-14.0 [facility] Comment on above: Order Comment: Order Added by Discern Expert. Performed By: #### 1 7066441, 9342717, 3100549, 3104394, 76796077 ####[place] [address] [place] [address] Monocytes/Leukocytes Auto (Bld) [Pure # fraction] 0.5 E9/L Normal 0.2-1.0 [facility] Comment on above: Order Comment: Order Added by Charissa Expert. Performed By: #### 1 9036217, 2468473, 8840965, 9435284, 11664718 ####[address] [address] Neutrophils/100 WBC (Bld) 68.1 % Normal 36.0-75.0 [facility] Comment on above: Order Comment: Order Added by Discern Expert. Performed By: #### 1 9984997, 9698774, 6170697, 1697106, 65377888 ####[facility] [address] [place] [address] Neutrophils/Leukocytes Auto (Bld) [Pure # fraction] 5.0 E9/L Normal 2.0-7.5 [facility] Comment on above: Order Comment: Order Added by Discern Expert. Performed By: #### 1 8693410, 9273993, 3726840, 2578323, 49602100 ####[facility] [address] [place] [address] BMPon 07-14-2023 Anion gap [Moles/Vol] 10 mmol/L Normal 6-16 [facility] Comment on above: Performed By: #### 1 8126319, 7670419, 7543925, 3249788, 24156605 ####[facility] [address] [place] [address] BUN/Creat Ratio 22 No Units High 10-20 [facility] Comment on above: Performed By: #### 1 8909165, 5482530, 8421289, 0409764, 75969730 ####[facility] [address] [place] [address] Calcium [Mass/Vol] 8.8 mg/dL Low 8.9-11.1 [facility] Comment on above: Performed By: #### 1 9146971, 7330559, 3084205, 6941585, 49074040 ####[facility] [address] [place] [address] Chloride [Moles/Vol] 115 mmol/L High 101-111 [facility] Comment on above: Performed By: #### 1 8255069, 6906367, 3474216, 5163480, 94721037 ####[facility] [address] [place] [address] CO2 [Moles/Vol] 21 mmol/L Normal 21-31 [facility] Comment on above: Performed By: #### 1 7427644, 2026407, 4770438, 5288547, 87113305 ####[facility] [address] [place] [address] Creatinine [Mass/Vol] 0.9 mg/dL Normal 0.5-1.3 [facility] Comment on above: Performed By: #### 1 4911920, 3991691, 4297651, 5534531, 91063536 ####[facility] [address] [place] [address] Glucose [Mass/Vol] 188 mg/dL Normal 55-199 [facility] Comment on above: Performed By: #### 1 2472566, 4662624, 7937372, 0447152, 34188548 ####[facility] [address] [place] [address] Potassium [Moles/Vol] 3.8 mmol/L Normal 3.5-5.3 [facility] Comment on above: Performed By: #### 1 9932625, 1385495, 8982811, 4716062, 23969551 ####[facility] [address] [place] [address] Sodium [Moles/Vol] 142 mmol/L Normal 135-145 [facility] Comment on above: Performed By: #### 1 7120006, 7676151, 3196916, 6029578, 49423850 ####[facility] [address] [place] [address] Urea nitrogen [Mass/Vol] 20 mg/dL Normal 5-21 [facility] Comment on above: Performed By: #### 1 3319147, 5056872, 2782300, 7100572, 22135893 ####[facility] [address] [place] [address] CBC w/ Auto Diffon 3 Erythrocyte distribution width (RBC) [Ratio] 12.5 % Normal 10.9-14.2 [facility] Comment on above: Performed By: #### 1 2205835, 9522610, 7650980, 2543988, 64331690 ####[place] [address] [place] [address] Hematocrit (Bld) [Volume fraction] 38.5 % Normal 37.7-49.0 [facility] Comment on above: Performed By: #### 1 5924224, 1876304, 7555482, 4031207, 63732084 ####[place] [address] Hemoglobin (Bld) [Mass/Vol] 13.5 g/dL Normal 13.5-17.5 [facility] Comment on above: Performed By: #### 1 8263879, 1548011, 9428200, 1996514, 26374825 ####[address] [address] MCH (RBC) [Entitic mass] 33.6 pg Normal 27.0-34.0 [facility] Comment on above: Performed By: #### 1 9861757, 2287850, 5139450, 1879798, 40375375 ####[address] [address] MCHC (RBC) [Mass/Vol] 35.2 g/dL Normal 31.4-36.0 [facility] Comment on above: Performed By: #### 1 2438797, 7177749, 7202630, 8057156, 80155954 ####[address] [address] MCV (RBC) [Entitic vol] 95.5 fL Normal 80.0-100.0 [facility] Comment on above: Performed By: #### 1 0137177, 1420370, 3127169, 5179834, 40568578 ####[address] [address] Platelet mean volume (Bld) [Entitic vol] 8.6 fL Normal 6.4-10.8 [facility] Comment on above: Performed By: #### 1 2809377, 5989701, 3191290, 0690491, 02678139 ####[facility] [address] [place] [address] Platelets (Bld) [#/Vol] 194.0 E9/L Normal 150.0-500.0 [facility] Comment on above: Performed By: #### 1 6246504, 8975961, 4433924, 3572909, 37005916 ####[facility] [address] [place] [address] RBC (Bld) [#/Vol] 4.0 E12/L Low 4.3-5.9 [facility] Comment on above: Performed By: #### 1 3038774, 0895447, 9566008, 0011439, 26694905 ####[facility] [address] [place] [address] WBC corrected for nucl RBC Auto (Bld) [#/Vol] 7.4 E9/L Normal 4.0-11.0 [facility] Comment on above: Performed By: #### 1 1371358, 4646347, 7130297, 8164841, 75147716 ####[facility] [address] [place] [address] CHEMISTRYOrdered By: SYSTEM SYSTEM on 07-14-2023 Anion [...] 33.7 s Normal 25.1 - 36.5 second(s) [facility] [place] Auto Coag Comment on above: Interpretive Data: [...] the same coagulation reagent and instrumentation as [facility] [place]. Currently there are no coagulation studies available worldwide for children to 14 days, and no normal ranges. Heparin therapeutic range (represented by Anti-Factor Xa activity of 0.2 - 0.4 U/mL) corresponds to PTT of 56.6 - 109.0 sec. INR Coag (PPP) [Relative time] 1.2 {INR} Invalid Interpretation Code [facility] [place] Auto Coag Comment on above: Interpretive Data: I NR results are specifically intended to assess patients stabilized on long-term Anticoagulation therapy suggested INR s Less Intensive Anticoagulation 2.0 3.0 Conventional Range 3.0 4.5 PT Coag (PPP) [Time] 12.8 s High 9.4 - 1 2.5 second(s) [facility] [place] Coag Comment on above: Interpretive Data: [...] the same coagulation reagent and instrumentation as [facility] [place]. Currently there are no coagulation studies available worldwide for children to 14 days, and no normal ranges. Consent for Treatmenton 06-30 Consent for Treatment [id number]#1.00TIFF Normal [facility] HEMATOLOGYOrdered By: SYSTEM SYSTEM on 07-14-2023 [...] Coag (PPP) [Time] 33.7 second(s) Normal 25.1-36.5 [facility] Comment on above: Result Comment: Para meter 15 days - 4 weeks 1 - 5 months 6 - 11 months 1 - 5 years 6 - 10 years 11 - 17 years PTT Mean: 35.4 (27.6-45.6) Mean: 33.5 (24.8-40.7) Mean: 32.4 (25.1-40.7) Mean: 31.6 (24.0-39.2) Mean: 31.6 (26.9-38.7) Mean: 31.0 (24.6-38.4) Pediatric Reference ranges were obtained from a study by bob Hensley al. prepared from 1437 samples obtained at 7 different centers using the same coagulation reagent and instrumentation as [facility] Currently there are no coagulation studies available worldwide for children to 14 days, and no normal ranges. Heparin therapeutic range (represented by Anti-Factor Xa activity of 0.2 - 0.4 U/mL) corresponds to PTT of 56.6 - 109.0 sec. Performed By: #### 1 [id number], [id number], [id number], [id number], [id number] ####[facility] [address] [place] [address] INR Coag (PPP) [Relative time] 1.2 {INR} Invalid Interpretation Code [facility] Comment on above: Result Comment: INR results are specifically intended to assess patients stabilized on long-term Anticoagulation therapy suggested INR?s ?Less Intensive Anticoagulation? 2.0 ? 3.0 Conventional Range 3.0 ? 4.5 Performed By: #### 1 [id number], [id number], [id number], [id number], [id number] ####[facility] [address] [place] [address] PT Coag (PPP) [Time] 12.8 second(s) High 9.4-12.5 [facility] Comment on above: Result Comment: 15 [...] the same coagulation reagent and instrumentation as [facility] [place]. Currently there are no coagulation studies available worldwide for children to 14 days, and no normal ranges. Performed By: #### 1 [id number], [id number], [id number], [id number], [id number] ####[facility] [address] [place] [address] UA With Cult Reflexon 2022 Bacteria LM Ql (Urine sed) TRACE Normal Trace [facility] Comment on above: Performed By: #### 1 [id number] ####[facility] [address] [place] [address] Bilirubin Ql (U) Negative Normal Negative [facility] Comment on above: Performed By: #### 1 [id number] ####[facility] [address] [place] [address] Clarity (U) CLEAR Normal Clear [facility] Comment on above: Performed By: #### 1 [id number] ####[address] [address] Color (U) YELLOW Normal Yellow [facility] Comment on above: Performed By: #### 1 [id number] ####[address] [address] Crystals LM Ql (Urine sed) Present Normal [facility] Comment on above: Performed By: #### 1 [id number] ####[address] [address] Epithelial cells.squamous LM.HPF (Urine sed) [#/Area] 0-2 Normal 0-2 [facility] Comment on above: Performed By: #### 1 [id number] ####[address] [address] Glucose Test strip (U) [Mass/Vol] Negative Normal Negative [facility] Comment on above: Performed By: #### 1 [id number] ####[facility] [address] [place] [address] Hemoglobin Ql (U) TRACE Abnormal Negative [facility] Comment on above: Performed By: #### 1 [id number] ####[address] [address] Ketones (U) [Mass/Vol] Negative Normal Negative Fi [facility] Comment on above: Performed By: #### 1 [id number] ####[facility] [address] [place] [address] [place].plasma/[place] .RBC (Bld) [Mass ratio] 4-20 Normal 0-3 [facility] Comment on above: Performed By: #### 1 [id number] ####[address] [place] [address] Mucus Ql (Urine sed) TRACE Normal [facility] Comment on above: Performed By: #### 1 [id number] ####[address] [address] Nitrite Ql (U) Negative Normal Negative [facility] Comment on above: Performed By: #### 1 [id number] ####[address] [address] pH (U) 6.5 [pH] Invalid Interpretation Code 5.0-9.0 [facility] Comment on above: Performed By: #### 1 [id number] ####[address] [address] Protein (U) [Mass/Vol] Negative Normal Negative [facility] Comment on above: Performed By: #### 1 [id number] ####[address] [address] Specific gravity (U) [Rel density] 1.020 Invalid Interpretation Code 1.005-1.030 [facility] Comment on above: Performed By: #### 1 [id number] ####[address] [address] Type of Urine collection method Clean Catch Normal [facility] Comment on above: Performed By: #### 1 [id number] ####[address] [address] Urobilinogen Qn (U) 0.2 {Sharda'U}/dL Normal 0.0-1.0 [facility] Comment on above: Performed By: #### 1 [id number] ####[address] [address] WBC Auto Ql (U) Negative Normal Negative [facility] Comment on above: Performed By: #### 1 [id number] ####[address] [place] [address] WBC LM.HPF (Urine sed) [#/Area] 0-5 Normal 0-5 [facility] Comment on above: Performed By: #### 1 [id number] ####[facility] [address] [place] [address] URINALYSISOrdered By: Lauren Tran on 07-14-2023 Bacteria [...] AM) Normal Negative [facility] UA Auto SS [place].plasma/[place] .RBC (Bld) [Mass ratio] 4-20 /HPF Normal [...] AM) Invalid Interpretation Code 1.005 - 1.030 [facility] [place] UA Auto SS UA Spec Desc Clean Catch (07/14/23 10:42 AM) Normal [facility] UA Auto SS Urobilinogen Qn (U) 0.2180649 {Sharda'U}/dL Normal 0.0 - 1.0 EU/dL [facility] UA Auto SS WBC Auto Ql (U) Negative (07/14/23 10:42 AM) Normal Negative [facility] UA Auto SS WBC LM.HPF (Urine sed) [#/Area] 0-5 /HPF Normal 0-5/HPF [facility] UA Auto SS XR Chest 2 Viewson [...] mGy = na DAP = na Normal [facility] eGFRon 07-14-2023 GFR/1.73 sq M.predicted among non-blacks MDRD (S/P/Bld) [Vol rate/Area] mL/min/{1.73_m2} Normal >=59 [facility] Comment on above: Order Comment: Order added by Discern Expert. Performed By: #### 1 [id number], [id number], [id number], [id number], [id number] ####[facility] [address] [place] [address] Insurance Correspondenceon 1 09-13-2022 Insurance Correspondence [id number]#1.00TIFF Normal [facility] Alanine aminotransferase [En zymatic activity/volume] in Serum or PlasmaOrdered By: Ashley Rush on 07-06-2023 ALT [Catalytic activity/Vol] 49 U/L 7-52 [facility] Albumin [Mass/volume] in Ser um or Plasma by Bromocresol green (BCG) dye binding methoOrdered By: Ashley Rush on 07-06-2023 Albumin BCG dye [Mass/Vol] 4.1 g/dL 3.5-5.7 [facility] Alkaline phosphatase [Enzyma tic activity/volume] in Serum or PlasmaOrdered By: Ashley Rush on 07-06-2023 ALP [Catalytic activity/Vol] 119 U/L 34-104 [facility] Aspartate aminotransferase [ Enzymatic activity/volume] in Serum or PlasmaOrdered By: Ashley Rush on 07-06-2023 AST [Catalytic activity/Vol] 22 U/L 13-39 [facility] Automated erythrocytes count in urine sediment (number/area)Ordered By: Ashley Rush on 07-06-2023 RBC Auto (Urine sed) [#/Area] 3-4 [HPF] 0-4 [facility] Automated leukocytes count i n urine sediment (number/area)Ordered By: Ashley Rsuh on 07-06-2023 WBC Auto (Urine sed) [#/Area] 3-4 [HPF] 0-4 [facility] Basophils Auto (Bld) [#/Vol] Ordered By: Ashley Rush on 07-06-2023 Basophils (Bld) [#/Vol] 0.0 10*3/uL 0.0-0.2 [facility] Basophils/100 WBC Auto (Bld) Ordered By: Ashley Rush on 07-06-2023 Basophils/100 WBC (Bld) 0.5 % . [facility] Bilirubin Test strip Ql (U)O rdered By: Ashley Rush on 07-06-2023 Bilirubin Ql (U) Negative Negative [facility] Bilirubin.total [Mass/volume ] in Serum or PlasmaOrdered By: Ashley Rush on 07-06-2023 Bilirubin [Mass/Vol] 0.4 mg/dL 0.3-1.[address] [facility] Calcium [Mass/volume] in Ser um or PlasmaOrdered By: Ashley Rush on 07-06-2023 Calcium [Mass/Vol] 8.9 mg/dL 8.6-10.3 [facility] Carbon dioxide, total [Moles /volume] in Serum or PlasmaOrdered By: Ashley Rush on 07-06-2023 CO2 [Moles/Vol] 22.2 mmol/L 21.0-31.0 [facility] Chloride [Moles/volume] in S karla or PlasmaOrdered By: Ashley Rush on 07-06-2023 Chloride [Moles/Vol] 113 mmol/L 98-[address] [facility] Color Auto (U)Ordered By: Leana Rush on 07-06-2023 Color (U) Yellow Yellow [facility] Creatinine [Mass/volume] in Serum or PlasmaOrdered By: Ashley Rush on 07-06-2023 Creatinine [Mass/Vol] 1.31 mg/dL 0.70-1.30 [facility] Eosinophils Auto (Bld) [#/Vo l]Ordered By: Ashley Rush on 07-06-2023 Eosinophils (Bld) [#/Vol] 0.1 10*3/uL 0.0-0.45 [facility] Eosinophils/100 WBC Auto (Bl d)Ordered By: Ashley Rush on 07-06-2023 Eosinophils/100 WBC (Bld) 2.1 % . [facility] Erythrocyte distribution wid th Auto (RBC) [Ratio]Ordered By: Ashley Rush on 07-06-2023 Erythrocyte distribution width (RBC) [Ratio] 12.7 % 12.0-14.8 [facility] Globulin Calc (S) [Mass/Vol] Ordered By: Ashley Rush on 07-06-2023 Globulin (S) [Mass/Vol] 2.0 g/dL [facility] Glucose [Mass/volume] in Ser um or PlasmaOrdered By: Ashley Rush on 07-06-2023 Glucose [Mass/Vol] 144 mg/dL 70-100 [facility] Comment on above: ADA recommended refe rence rangeRandom Glucose Reference Range is dependent on time and content of last meal. Glucose of more than 200 mg/dL in a nonstressed, ambulatory subject supports the diagnosis of Diabetes Mellitus. Hematocrit Auto (Bld) [Volum e fraction]Ordered By: Ashley Rush on 07-06-2023 Hematocrit (Bld) [Volume fraction] 37.6 % 38.8-50.0 [facility] Hemoglobin [Mass/volume] in BloodOrdered By: Ashley Rush on 07-06-2023 Hemoglobin (Bld) [Mass/Vol] 13.1 g/dL 13.0-17.0 [facility] Ketones Auto test strip (U) [Mass/Vol]Ordered By: Ashley Rush on 07-06-2023 Ketones (U) [Mass/Vol] Trace Negative [facility] Laboratory - UrinalysisOrder ed By: Ashley Rush on 07-06-2023 Hyaline casts LM Ql (Urine sed) 9-19 [LPF] 0-8 [facility] Leukocytes [#/volume] correc velasquez for nucleated erythrocytes in Blood by Automated counOrdered By: Ashley Rush on 07-06-2023 WBC corrected for nucl RBC Auto (Bld) [#/Vol] 7.0 10*3/uL 4.1-10.5 [facility] Lipase [Enzymatic activity/v olume] in Serum or PlasmaOrdered By: Ashley Rush on 07-06-2023 Lipase [Catalytic activity/Vol] 56.0 U/L 11.0-82.0 [facility] Lymphocytes Auto (Bld) [#/Vo l]Ordered By: Ashley Rush on 07-06-2023 Lymphocytes (Bld) [#/Vol] 1.9 10*3/uL 1.00-4.8 [facility] Lymphocytes/100 WBC Auto (Bl d)Ordered By: Ashley Rush on 07-06-2023 Lymphocytes/100 WBC (Bld) 27.0 % . [facility] MCH Auto (RBC) [Entitic mass ]Ordered By: Ashley Rush on 07-06-2023 MCH (RBC) [Entitic mass] 33.7 pg 27.5-35.2 [facility] MCHC Auto (RBC) [Mass/Vol]Or dered By: Ashley Rush on 07-06-2023 MCHC (RBC) [Mass/Vol] 35.0 g/dL 32.5-35.6 [facility] MCV Auto (RBC) [Entitic vol] Ordered By: Ashley Rush on 07-06-2023 MCV (RBC) [Entitic vol] 96.3 fL 83.5-101 [facility] Monocyte distribution width [Entitic volume] in Blood by AutomatedOrdered By: Ashley Rush on 07-06-2023 Monocyte distribution width Auto (Bld) [Entitic vol] 17.96 % 0.00-20.00 [facility] Monocytes Auto (Bld) [#/Vol] Ordered By: Ashley Rush on 07-06-2023 Monocytes (Bld) [#/Vol] 0.6 10*3/uL 0.0-0.8 [facility] Monocytes/100 WBC Auto (Bld) Ordered By: Ashley Rush on 07-06-2023 Monocytes/100 WBC (Bld) 8.1 % . [facility] Neutrophils Auto (Bld) [#/Vo l]Ordered By: Ashley Rush on 07-06-2023 Neutrophils (Bld) [#/Vol] 4.3 10*3/uL 1.8-7.7 [facility] Neutrophils/100 WBC Auto (Bl d)Ordered By: Ashley Rush on 07-06-2023 Neutrophils/100 WBC (Bld) 62.3 % . [facility] Nitrite Test strip Ql (U)Ord ered By: Ashley Rush on 07-06-2023 Nitrite Ql (U) Negative Negative [facility] No Panel InformationOrdered By: Ashley Rush on 07-06-2023 Estimated GFR (CKD-EPI) > 60.0 mL/Min [facility] Creatinine Clearance (Chem 66.17 [facility] Nucleated erythrocytes [Pres ence] in Blood by Automated countOrdered By: Ashley Rush on 07-06-2023 Nucleated RBC Auto Ql (Bld) 0.1 /100{WBC} 0-0.5 [facility] Platelet mean volume Auto (B ld) [Entitic vol]Ordered By: Ashley Rush on 07-06-2023 Platelet mean volume (Bld) [Entitic vol] 8.5 fL 6.6-10.1 [facility] Platelets Auto (Bld) [#/Vol] Ordered By: Ashley Rush on 07-06-2023 Platelets (Bld) [#/Vol] 228 10*3/uL 150-450 [facility] Potassium [Moles/volume] in Serum or PlasmaOrdered By: Ashley Rush on 07-06-2023 Potassium [Moles/Vol] 3.7 mmol/L 3.5-5.1 [facility] Protein Auto test strip (U) [Mass/Vol]Ordered By: Ashley Rush on 07-06-2023 Protein (U) [Mass/Vol] 30 mg/dL Negative [facility] Protein [Mass/volume] in Ser um or PlasmaOrdered By: Ashley Rush on 07-06-2023 Protein [Mass/Vol] 6.1 g/dL 6.4-8.9 [facility] RBC Auto (Bld) [#/Vol]Ordere d By: Ashley Rush on 07-06-2023 RBC (Bld) [#/Vol] 3.91 10*6/uL 3.90-5.60 [facility] Serum or plasma albumin/glob ulin mass ratioOrdered By: Ashley Rush on 07-06-2023 Albumin/Globulin [Mass ratio] 2.1 {ratio} [facility] Serum or plasma anion gap de terminationOrdered By: Ashley Rush on 07-06-2023 Anion gap [Moles/Vol] 9.5 mmol/L 6.0-15.0 [facility] Sodium [Moles/volume] in Ser um or PlasmaOrdered By: Ashley Rush on 07-06-2023 Sodium [Moles/Vol] 141 mmol/L 136-145 [facility] Specific gravity Auto test s trip (U) [Rel density]Ordered By: Ashley Rush on 07-06-2023 Specific gravity (U) [Rel density] 1.019 1.001-1.030 [facility] Squamous epithelial cells de tection in urine sediment by light microscopyOrdered By: Ashley Rush on 07-06-2023 Epithelial cells.squamous LM Ql (Urine sed) 1-2 [HPF] 0-2 [facility] Urea nitrogen [Mass/volume] in Serum or PlasmaOrdered By: Ashley Rush on 07-06-2023 Urea nitrogen [Mass/Vol] 19 mg/dL 7-25 [facility] Urine bacteria detection by automated methodOrdered By: Ashley Rush on 07-06-2023 Bacteria Auto Ql (U) None seen None Seen [facility] Urine clarity by refractomet ry automatedOrdered By: Ashley Rush on 07-06-2023 Clarity Refractometry automated (U) Clear Clear [facility] Urine glucose measurement by automated test strip (mass/volume)Ordered By: Ashley Rush on 07-06-2023 Glucose Auto test strip (U) [Mass/Vol] Normal mg/dL Normal [facility] Urine hemoglobin detection b y automated test stripOrdered By: Ashley Rush on 07-06-2023 Hemoglobin Auto test strip Ql (U) Negative Negative [facility] Urine leukocyte esterase det ection by automated test stripOrdered By: Ashley Rush on 07-06-2023 Leukocyte esterase Auto test strip Ql (U) Negative Negative [facility] Urobilinogen Auto test strip (U) [Mass/Vol]Ordered By: Ashley Rush on 07-06-2023 Urobilinogen (U) [Mass/Vol] Normal mg/dL Normal [facility] WBC Auto (Bld) [#/Vol]Ordere d By: Ashley Rush on 07-06-2023 WBC (Bld) [#/Vol] 7.0 10*3/uL 4.1-10.5 [facility] pH Auto test strip (U)Ordere d By: Ashley Rush on 07-06-2023 pH (U) 7.0 [pH] 5.0-9.0 [facility] ED Note-Physicianon 07-05-20 ED Note-Physician [id number]#1.00TIFF Normal [facility] Formson 07-05-2023 Forms [id number]#1.00TIFF Normal [facility] Screenson 07-05-2023 Screens [id number]#1.00TIFF Normal [facility] Ambulatory Visit Summaryon 1 09-04-2022 Ambulatory Visit Summary FREEDOM RODGERS :1960 Visit Date:07/04/2023 Ambulatory Visit Instructions Your Diagnosis Ureteral stone Gross hematuria Tests Performed Urnls Dip Stick Auto w/o Microscopy POC 51370 US Renal -- Results Pending -- XR [...] MIAN MELENDEZ, Víctor Gonzáles, ANTONIA When: Where: [address] [place] [id number]- Medications What How Much When Instructions Unchanged [...] Urnls Dip Stick Auto w/o Microscopy POC 88702 (07/04/2023) Bilirubin Urine Dipstick - Negative Blood Urine Dipstick - Negative Glucose Urine Dipstick - Negative Ketones Urine Dipstick - Negative Leukocytes Urine Dipstick - Negative Nitrite Urine Dipstick - Negative Protein Urine Dipstick - Negative Specific [place] Urine Dipstick - 1.015 Urine Appearance Urine [...] ? 8 oz (237 mL) of milk, dxegcss-xtwcjmxmlxpn-xamw y milk, and calcium-fortifiedfruit juice. Calcium-fortified means that calcium has been added to these drinks. ? 8 oz (237 mL) of kefir, yogurt, and soy yogurt. ? 4 oz (114 g) of tofu. ? (more content not included)... Normal [facility] Patient Educationon 07-04-20 Patient Education Nephrology [...] ? 8 oz (237 mL) of milk, ifbiseq-vajrbtjmmkmm-qehr y milk, and calcium-fortifiedfruit juice. Calcium-fortified means [...] Spinach (cooked), rhubarb, beets, sweet potatoes, and [place] chard. ? Peanuts. ? Potato chips, [place] fries, and baked potatoes with skin on. ? Nuts and nut products. ? Chocolate. ? If you regularly take a diuretic medicine, make sure to eat at least 1 or 2 servings of fruits or vegetables that are high in potassium each day. These include: ? Avocado. ? Banana. ? [place], prune, carrot, or tomato juice. ? Baked [...] fish oil, or vitamin B6. ? Take kcin-otp-vspbigk and prescription medicines only as told by your health care provider. These include supplements. What foods sh (more content not included)... Normal [facility] Urology Office/Clinic Noteon 07-04-2023 Urology Office/Clinic Note Chief Complaint New Pt HPI Staff Freedom is here for an [facility] f/u to a visit from 06/23/23 [...] 18, Crea 1.16 Pt returned to the [facility] ER on 06/28/23 c/o worsening pain in [...] 1. Ureteral stone (N20.1: Calculus of ureter) [facility] f/u to a visit from 06/23/23 c/o Lt lower abdominal pain. CT AP w/o Con 06/23/23 - punctate BL stones with a 2-3mm obstructing stone in the Lt UPJ w/ moderate hydro, there is a 3x7mm stone posteriorly in the bladder. D/c with Keflex, Tamsulosin, Oxycodone, and Zofran and instructions to f/u with our office. Labs 06/23/23 - BUN 18, Crea 1.16 [facility] ER on 06/28/23 c/o worsening pain in [...] since. UA (more content not included)... Normal [facility] Comment on above: Result Comment: Elec tronically Signed By: Víctor BRADY MD\.br\Date and Time Signed: 07/04/23 14:14 EST\.br\Electronically Co-Signed By: Ani Michelle\.br\Date and Time Co-Signed: 07/04/23 14:12 EST Alanine aminotransferase [En zymatic activity/volume] in Serum or PlasmaOrdered By: Dalton Hernandez on 06-28-2023 ALT [Catalytic activity/Vol] 32 U/L 7-52 [facility] Albumin [Mass/volume] in Ser um or Plasma by Bromocresol green (BCG) dye binding methoOrdered By: Dalton Hernandez on 06-28-2023 Albumin BCG dye [Mass/Vol] 4.4 g/dL 3.5-5.7 [facility] Alkaline phosphatase [Enzyma tic activity/volume] in Serum or PlasmaOrdered By: Dalton Hernandez on 06-28-2023 ALP [Catalytic activity/Vol] 128 U/L 34-104 [facility] Aspartate aminotransferase [ Enzymatic activity/volume] in Serum or PlasmaOrdered By: Dalton Hernandez on 06-28-2023 AST [Catalytic activity/Vol] 22 U/L 13-39 [facility] Basophils Auto (Bld) [#/Vol] Ordered By: Dalton Hernandez on 06-28-2023 Basophils (Bld) [#/Vol] 0.1 10*3/uL 0.0-0.2 [facility] Basophils/100 WBC Auto (Bld) Ordered By: Dalton Hernandez on 06-28-2023 Basophils/100 WBC (Bld) 0.9 % . [facility] Bilirubin Test strip Ql (U)O rdered By: Dalton Hernandez on 06-28-2023 Bilirubin Ql (U) Negative Negative [facility] Bilirubin.direct [Mass/volum e] in Serum or PlasmaOrdered By: Dalton Hernandez on 06-28-2023 Bilirubin.direct [Mass/Vol] 0.10 mg/dL 0.03-0.18 [facility] Bilirubin.total [Mass/volume ] in Serum or PlasmaOrdered By: Dalton Hernandez on 06-28-2023 Bilirubin [Mass/Vol] 0.4 mg/dL 0.3-1.[address] [facility] Calcium [Mass/volume] in Ser um or PlasmaOrdered By: Dalton Hernandez on 06-28-2023 Calcium [Mass/Vol] 8.2 mg/dL 8.6-10.3 [facility] Carbon dioxide, total [Moles /volume] in Serum or PlasmaOrdered By: Dalton Hernandez on 06-28-2023 CO2 [Moles/Vol] 22.6 mmol/L 21.0-31.0 [facility] Chloride [Moles/volume] in S karla or PlasmaOrdered By: Dalton Hernandez on 06-28-2023 Chloride [Moles/Vol] 115 mmol/L 98-[address] [facility] Color Auto (U)Ordered By: Ulises Hernandez on 06-28-2023 Color (U) Yellow Yellow [facility] Creatinine [Mass/volume] in Serum or PlasmaOrdered By: Dalton Hernandez on 06-28-2023 Creatinine [Mass/Vol] 0.89 mg/dL 0.70-1.30 [facility] Eosinophils Auto (Bld) [#/Vo l]Ordered By: Dalton Hernandez on 06-28-2023 Eosinophils (Bld) [#/Vol] 0.1 10*3/uL 0.0-0.45 [facility] Eosinophils/100 WBC Auto (Bl d)Ordered By: Dalton Hernandez on 06-28-2023 Eosinophils/100 WBC (Bld) 1.8 % . [facility] Erythrocyte distribution wid th Auto (RBC) [Ratio]Ordered By: Dalton Hernandez on 06-28-2023 Erythrocyte distribution width (RBC) [Ratio] 12.4 % 12.0-14.8 [facility] Globulin Calc (S) [Mass/Vol] Ordered By: Dalton Hernandez on 06-28-2023 Globulin (S) [Mass/Vol] 2.5 g/dL [facility] Glucose [Mass/volume] in Ser um or PlasmaOrdered By: Dalton Hernandez on 06-28-2023 Glucose [Mass/Vol] 82 mg/dL 70-100 [facility] Comment on above: ADA recommended refe rence rangeRandom Glucose Reference Range is dependent on time and content of last meal. Glucose of more than 200 mg/dL in a nonstressed, ambulatory subject supports the diagnosis of Diabetes Mellitus. Hematocrit Auto (Bld) [Volum e fraction]Ordered By: Dalton Hernandez on 06-28-2023 Hematocrit (Bld) [Volume fraction] 40.3 % 38.8-50.0 [facility] Hemoglobin [Mass/volume] in BloodOrdered By: Dalton Hernandez on 06-28-2023 Hemoglobin (Bld) [Mass/Vol] 14.1 g/dL 13.0-17.0 [facility] Ketones Auto test strip (U) [Mass/Vol]Ordered By: Dalton Hernandez on 06-28-2023 Ketones (U) [Mass/Vol] Negative Negative [facility] Leukocytes [#/volume] correc velasquez for nucleated erythrocytes in Blood by Automated counOrdered By: Dalton Hernandez on 06-28-2023 WBC corrected for nucl RBC Auto (Bld) [#/Vol] 6.8 10*3/uL 4.1-10.5 [facility] Lipase [Enzymatic activity/v olume] in Serum or PlasmaOrdered By: Dalton Hernandez on 06-28-2023 Lipase [Catalytic activity/Vol] 44.0 U/L 11.0-82.0 [facility] Lymphocytes Auto (Bld) [#/Vo l]Ordered By: Dalton Hernandez on 06-28-2023 Lymphocytes (Bld) [#/Vol] 1.6 10*3/uL 1.00-4.8 [facility] Lymphocytes/100 WBC Auto (Bl d)Ordered By: Dalton Hernandez on 06-28-2023 Lymphocytes/100 WBC (Bld) 22.9 % . [facility] MCH Auto (RBC) [Entitic mass ]Ordered By: Dalton Hernandez on 06-28-2023 MCH (RBC) [Entitic mass] 33.5 pg 27.5-35.2 [facility] MCHC Auto (RBC) [Mass/Vol]Or dered By: Dalton Hernandez on 06-28-2023 MCHC (RBC) [Mass/Vol] 35.1 g/dL 32.5-35.6 [facility] MCV Auto (RBC) [Entitic vol] Ordered By: Dalton Hernandez on 06-28-2023 MCV (RBC) [Entitic vol] 95.4 fL 83.5-101 [facility] Monocyte distribution width [Entitic volume] in Blood by AutomatedOrdered By: Dalton Hernandez on 06-28-2023 Monocyte distribution width Auto (Bld) [Entitic vol] 16.05 % 0.00-20.00 [facility] [facility] Monocytes Auto (Bld) [#/Vol] Ordered By: Dalton Hernandez on 06-28-2023 Monocytes (Bld) [#/Vol] 0.5 10*3/uL 0.0-0.8 [facility] Monocytes/100 WBC Auto (Bld) Ordered By: Dalton Hernandez on 06-28-2023 Monocytes/100 WBC (Bld) 7.7 % . [facility] Neutrophils Auto (Bld) [#/Vo l]Ordered By: Dalton Hernandez on 06-28-2023 Neutrophils (Bld) [#/Vol] 4.5 10*3/uL 1.8-7.7 [facility] Neutrophils/100 WBC Auto (Bl d)Ordered By: Dalton Hernandez on 06-28-2023 Neutrophils/100 WBC (Bld) 66.7 % . [facility] Nitrite Test strip Ql (U)Ord ered By: Dalton Hernandez on 06-28-2023 Nitrite Ql (U) Negative Negative [facility] No Panel InformationOrdered By: Dalton Hernandez on 06-28-2023 Estimated GFR (CKD-EPI) > 60.0 mL/Min [facility] Creatinine Clearance (Chem 97.63 [facility] Nucleated erythrocytes [Pres ence] in Blood by Automated countOrdered By: Dalton Hernandez on 06-28-2023 Nucleated RBC Auto Ql (Bld) 0.0 /100{WBC} 0-0.5 [facility] Platelet mean volume Auto (B ld) [Entitic vol]Ordered By: Dalton Hernandez on 06-28-2023 Platelet mean volume (Bld) [Entitic vol] 9.1 fL 6.6-10.1 [facility] Platelets Auto (Bld) [#/Vol] Ordered By: Dalton Hernandez on 06-28-2023 Platelets (Bld) [#/Vol] 224 10*3/uL 150-450 [facility] Potassium [Moles/volume] in Serum or PlasmaOrdered By: Dalton Hernandez on 06-28-2023 Potassium [Moles/Vol] 3.5 mmol/L 3.5-5.1 [facility] Protein Auto test strip (U) [Mass/Vol]Ordered By: Dalton Hernandez on 06-28-2023 Protein (U) [Mass/Vol] Negative Negative [facility] Protein [Mass/volume] in Ser um or PlasmaOrdered By: Dalton Hernandez on 06-28-2023 Protein [Mass/Vol] 6.9 g/dL 6.4-8.9 [facility] RBC Auto (Bld) [#/Vol]Ordere d By: Dalton Hernandez on 06-28-2023 RBC (Bld) [#/Vol] 4.22 10*6/uL 3.90-5.60 [facility] Serum or plasma albumin/glob ulin mass ratioOrdered By: Dalton Hernandez on 06-28-2023 Albumin/Globulin [Mass ratio] 1.8 {ratio} [facility] Serum or plasma anion gap de terminationOrdered By: Dalton Hernandez on 06-28-2023 Anion gap [Moles/Vol] 8.9 mmol/L 6.0-15.0 [facility] Serum or plasma non-glucuron idated bilirubin measurement (mass/volume)Ordered By: Dalton Hernandez on 06-28-2023 Bilirubin.indirect [Mass/Vol] 0.3 mg/dL [facility] Sodium [Moles/volume] in Ser um or PlasmaOrdered By: Dalton Hernandez on 06-28-2023 Sodium [Moles/Vol] 143 mmol/L 136-145 [facility] Specific gravity Auto test s trip (U) [Rel density]Ordered By: Dalton Hernandez on 06-28-2023 Specific gravity (U) [Rel density] 1.004 1.001-1.030 [facility] Urea nitrogen [Mass/volume] in Serum or PlasmaOrdered By: Dalton Hernandez on 06-28-2023 Urea nitrogen [Mass/Vol] 11 mg/dL 7-25 [facility] Urine clarity by refractomet ry automatedOrdered By: Dalton Hernandez on 06-28-2023 Clarity Refractometry automated (U) Clear Clear [facility] Urine glucose measurement by automated test strip (mass/volume)Ordered By: Dalton Hernandez on 06-28-2023 Glucose Auto test strip (U) [Mass/Vol] 250 mg/dL Normal [facility] Urine hemoglobin detection b y automated test stripOrdered By: Dalton Hernandez on 06-28-2023 Hemoglobin Auto test strip Ql (U) Negative Negative [facility] Urine leukocyte esterase det ection by automated test stripOrdered By: Dalton Hernandez on 06-28-2023 Leukocyte esterase Auto test strip Ql (U) Negative Negative [facility] Urobilinogen Auto test strip (U) [Mass/Vol]Ordered By: Dalton Hernandez on 06-28-2023 Urobilinogen (U) [Mass/Vol] Normal mg/dL Normal [facility] WBC Auto (Bld) [#/Vol]Ordere d By: Dalton Hernandez on 06-28-2023 WBC (Bld) [#/Vol] 6.8 10*3/uL 4.1-10.5 [facility] pH Auto test strip (U)Ordere d By: Dalton Hernandez on 06-28-2023 pH (U) 7.0 [pH] 5.0-9.0 [facility] ED Note-Physicianon 06-26-20 ED Note-Physician [id number] Normal [facility] Alanine aminotransferase [En zymatic activity/volume] in Serum or PlasmaOrdered By: Dalton Hernandez on 06-23-2023 ALT [Catalytic activity/Vol] 25 U/L 7-52 [facility] Albumin [Mass/volume] in Ser um or Plasma by Bromocresol green (BCG) dye binding methoOrdered By: Dalton Hernandez on 06-23-2023 Albumin BCG dye [Mass/Vol] 4.0 g/dL 3.5-5.7 [facility] Alkaline phosphatase [Enzyma tic activity/volume] in Serum or PlasmaOrdered By: Dalton Hernandez on 06-23-2023 ALP [Catalytic activity/Vol] 100 U/L 34-104 [facility] Aspartate aminotransferase [ Enzymatic activity/volume] in Serum or PlasmaOrdered By: Dalton Hernandez on 06-23-2023 AST [Catalytic activity/Vol] 16 U/L 13-39 [facility] Automated erythrocytes count in urine sediment (number/area)Ordered By: Dalton Hernandez on 06-23-2023 RBC Auto (Urine sed) [#/Area] Innumerable [HPF] 0-4 [facility] Automated leukocytes count i n urine sediment (number/area)Ordered By: Dalton Hernandez on 06-23-2023 WBC Auto (Urine sed) [#/Area] 5-9 [HPF] 0-4 [facility] Basophils Auto (Bld) [#/Vol] Ordered By: Dalton Hernandez on 06-23-2023 Basophils (Bld) [#/Vol] 0.1 10*3/uL 0.0-0.2 [facility] Basophils/100 WBC Auto (Bld) Ordered By: Dalton Hernandez on 06-23-2023 Basophils/100 WBC (Bld) 0.7 % . [facility] Bilirubin Test strip Ql (U)O rdered By: Dalton Hernandez on 06-23-2023 Bilirubin Ql (U) Negative Negative [facility] Bilirubin.direct [Mass/volum e] in Serum or PlasmaOrdered By: aDlton Hernandez on 06-23-2023 Bilirubin.direct [Mass/Vol] 0.10 mg/dL 0.03-0.18 [facility] Bilirubin.total [Mass/volume ] in Serum or PlasmaOrdered By: Dalton Hernandez on 06-23-2023 Bilirubin [Mass/Vol] 0.5 mg/dL 0.3-1.[address] [facility] Calcium [Mass/volume] in Ser um or PlasmaOrdered By: Dalton Hernandez on 06-23-2023 Calcium [Mass/Vol] 8.6 mg/dL 8.6-10.3 [facility] Carbon dioxide, total [Moles /volume] in Serum or PlasmaOrdered By: Dalton Hernandez on 06-23-2023 CO2 [Moles/Vol] 21.1 mmol/L 21.0-31.0 [facility] Chloride [Moles/volume] in S karla or PlasmaOrdered By: Dalton Hernandez on 06-23-2023 Chloride [Moles/Vol] 116 mmol/L 98-[address] [facility] Color Auto (U)Ordered By: Ulises Hernandez on 06-23-2023 Color (U) [place] Yellow [facility] Creatinine [Mass/volume] in Serum or PlasmaOrdered By: Dalton Hernandez on 06-23-2023 Creatinine [Mass/Vol] 1.16 mg/dL 0.70-1.30 [facility] Eosinophils Auto (Bld) [#/Vo l]Ordered By: Dalton Hernandez on 06-23-2023 Eosinophils (Bld) [#/Vol] 0.2 10*3/uL 0.0-0.45 [facility] Eosinophils/100 WBC Auto (Bl d)Ordered By: Dalton Hernandez on 06-23-2023 Eosinophils/100 WBC (Bld) 1.8 % . [facility] Erythrocyte distribution wid th Auto (RBC) [Ratio]Ordered By: Dalton Hernandez on 06-23-2023 Erythrocyte distribution width (RBC) [Ratio] 12.2 % 12.0-14.8 [facility] Globulin Calc (S) [Mass/Vol] Ordered By: Dalton Hernandez on 06-23-2023 Globulin (S) [Mass/Vol] 2.0 g/dL [facility] Glucose [Mass/volume] in Ser um or PlasmaOrdered By: Dalton Hernandez on 06-23-2023 Glucose [Mass/Vol] 138 mg/dL 70-100 [facility] Comment on above: ADA recommended refe rence rangeRandom Glucose Reference Range is dependent on time and content of last meal. Glucose of more than 200 mg/dL in a nonstressed, ambulatory subject supports the diagnosis of Diabetes Mellitus. Hematocrit Auto (Bld) [Volum e fraction]Ordered By: Dalton Hernandez on 06-23-2023 Hematocrit (Bld) [Volume fraction] 40.3 % 38.8-50.0 [facility] Hemoglobin [Mass/volume] in BloodOrdered By: Dalton Hernandez on 06-23-2023 Hemoglobin (Bld) [Mass/Vol] 14.2 g/dL 13.0-17.0 [facility] Ketones Auto test strip (U) [Mass/Vol]Ordered By: Dalton Hernandez on 06-23-2023 Ketones (U) [Mass/Vol] Trace Negative [facility] Laboratory - UrinalysisOrder ed By: Dalton Hernandez on 06-23-2023 Hyaline casts LM Ql (Urine sed) 0-8 [LPF] 0-8 [facility] Leukocytes [#/volume] correc velasquez for nucleated erythrocytes in Blood by Automated counOrdered By: Dalton Hernandez on 06-23-2023 WBC corrected for nucl RBC Auto (Bld) [#/Vol] 10.7 10*3/uL 4.1-10.5 [facility] Lipase [Enzymatic activity/v olume] in Serum or PlasmaOrdered By: Dalton Hernandez on 06-23-2023 Lipase [Catalytic activity/Vol] 54.0 U/L 11.0-82.0 [facility] Lymphocytes Auto (Bld) [#/Vo l]Ordered By: Dalton Hernandez on 06-23-2023 Lymphocytes (Bld) [#/Vol] 1.6 10*3/uL 1.00-4.8 [facility] Lymphocytes/100 WBC Auto (Bl d)Ordered By: Dalton Hernandez on 06-23-2023 Lymphocytes/100 WBC (Bld) 15.2 % . [facility] MCH Auto (RBC) [Entitic mass ]Ordered By: Dalton Hernandez on 06-23-2023 MCH (RBC) [Entitic mass] 33.6 pg 27.5-35.2 [facility] MCHC Auto (RBC) [Mass/Vol]Or dered By: Dalton Hernandez on 06-23-2023 MCHC (RBC) [Mass/Vol] 35.3 g/dL 32.5-35.6 [facility] MCV Auto (RBC) [Entitic vol] Ordered By: Dalton Hernandez on 06-23-2023 MCV (RBC) [Entitic vol] 95.2 fL 83.5-101 [facility] Monocyte distribution width [Entitic volume] in Blood by AutomatedOrdered By: Dalton Hernandez on 06-23-2023 Monocyte distribution width Auto (Bld) [Entitic vol] 15.88 % 0.00-20.00 [facility] Monocytes Auto (Bld) [#/Vol] Ordered By: Dalton Hernandez on 06-23-2023 Monocytes (Bld) [#/Vol] 0.8 10*3/uL 0.0-0.8 [facility] Monocytes/100 WBC Auto (Bld) Ordered By: Dalton Hernandez on 06-23-2023 Monocytes/100 WBC (Bld) 7.6 % . [facility] Neutrophils Auto (Bld) [#/Vo l]Ordered By: Dalton Hernandez on 06-23-2023 Neutrophils (Bld) [#/Vol] 8.0 10*3/uL 1.8-7.7 [facility] Neutrophils/100 WBC Auto (Bl d)Ordered By: Dalton Hernandez on 06-23-2023 Neutrophils/100 WBC (Bld) 74.7 % . [facility] Nitrite Test strip Ql (U)Ord ered By: Dalton Hernandez on 06-23-2023 Nitrite Ql (U) Negative Negative [facility] No Panel InformationOrdered By: Dalton Hernandez on 06-23-2023 Estimated GFR (CKD-EPI) > 60.0 mL/Min [facility] Creatinine Clearance (Chem 74.71 [facility] Nucleated erythrocytes [Pres ence] in Blood by Automated countOrdered By: Dalton Hernandez on 06-23-2023 Nucleated RBC Auto Ql (Bld) 0.0 /100{WBC} 0-0.5 [facility] Platelet mean volume Auto (B ld) [Entitic vol]Ordered By: Dalton Hernandez on 06-23-2023 Platelet mean volume (Bld) [Entitic vol] 8.8 fL 6.6-10.1 [facility] Platelets Auto (Bld) [#/Vol] Ordered By: Dalton Hernandez on 06-23-2023 Platelets (Bld) [#/Vol] 202 10*3/uL 150-450 [facility] Potassium [Moles/volume] in Serum or PlasmaOrdered By: Dalton Hernandez on 06-23-2023 Potassium [Moles/Vol] 3.8 mmol/L 3.5-5.1 [facility] Protein Auto test strip (U) [Mass/Vol]Ordered By: Dalton Hernandez on 06-23-2023 Protein (U) [Mass/Vol] 30 mg/dL Negative [facility] Protein [Mass/volume] in Ser um or PlasmaOrdered By: Dalton Hernandez on 06-23-2023 Protein [Mass/Vol] 6.0 g/dL 6.4-8.9 [facility] RBC Auto (Bld) [#/Vol]Ordere d By: Dalton Hernandez on 06-23-2023 RBC (Bld) [#/Vol] 4.23 10*6/uL 3.90-5.60 [facility] Serum or plasma albumin/glob ulin mass ratioOrdered By: Dalton Hernandez on 06-23-2023 Albumin/Globulin [Mass ratio] 2.0 {ratio} [facility] Serum or plasma anion gap de terminationOrdered By: Dalton Hernandez on 06-23-2023 Anion gap [Moles/Vol] 10.7 mmol/L 6.0-15.0 [facility] Serum or plasma non-glucuron idated bilirubin measurement (mass/volume)Ordered By: Dalton Hernandez on 06-23-2023 Bilirubin.indirect [Mass/Vol] 0.4 mg/dL [facility] Sodium [Moles/volume] in Ser um or PlasmaOrdered By: Dalton Hernandez on 06-23-2023 Sodium [Moles/Vol] 144 mmol/L 136-145 [facility] Specific gravity Auto test s trip (U) [Rel density]Ordered By: Dalton Hernandez on 06-23-2023 Specific gravity (U) [Rel density] 1.021 1.001-1.030 [facility] Squamous epithelial cells de tection in urine sediment by light microscopyOrdered By: Dalton Hernandez on 06-23-2023 Epithelial cells.squamous LM Ql (Urine sed) 0-1 [HPF] 0-2 [facility] Urea nitrogen [Mass/volume] in Serum or PlasmaOrdered By: Dalton Hernandez on 06-23-2023 Urea nitrogen [Mass/Vol] 18 mg/dL 7-25 [facility] Urine bacteria detection by automated methodOrdered By: Dalton Hernandez on 06-23-2023 Bacteria Auto Ql (U) None seen None Seen [facility] Urine clarity by refractomet ry automatedOrdered By: Dalton Hernandez on 06-23-2023 Clarity Refractometry automated (U) Turbid Clear [facility] Urine culture routineOrdered By: Dalton Hernandez on 06-23-2023 Bacteria identified Cx Nom (U) 2 Days [facility] Urine glucose measurement by automated test strip (mass/volume)Ordered By: Dalton Hernandez on 06-23-2023 Glucose Auto test strip (U) [Mass/Vol] Normal mg/dL Normal [facility] Urine hemoglobin detection b y automated test stripOrdered By: Dalton Hernandez on 06-23-2023 Hemoglobin Auto test strip Ql (U) 3+ Negative [facility] Urine leukocyte esterase det ection by automated test stripOrdered By: Dalton Hernandez on 06-23-2023 Leukocyte esterase Auto test strip Ql (U) 2+ Negative [facility] Urobilinogen Auto test strip (U) [Mass/Vol]Ordered By: Dalton Hernandez on 06-23-2023 Urobilinogen (U) [Mass/Vol] Normal mg/dL Normal [facility] WBC Auto (Bld) [#/Vol]Ordere d By: Dalton Hernandez on 06-23-2023 WBC (Bld) [#/Vol] 10.7 10*3/uL 4.1-10.5 [facility] pH Auto test strip (U)Ordere d By: Dalton Hernandez on 06-23-2023 pH (U) 6.5 [pH] 5.0-9.0 [facility] Activated partial thrombopla stin time (aPTT) in platelet poor plasma by coagulation aOrdered By: Myriam Galan on 04-27-2023 aPTT Coag (PPP) [Time] 29.6 s 25.1-36.5 [facility] Comment on above: A hematocrit value g reater than 55% may lead to inaccurate results in coagulation testing. Patients having hematocrit values >55% require a special collection tube for coagulation studies. Please contact the laboratory at [phone] for redraw instructions. Basophils Auto (Bld) [#/Vol] Ordered By: Myriam Galan on 04-27-2023 Basophils (Bld) [#/Vol] 0.0 10*3/uL 0.0-0.2 [facility] Basophils/100 WBC Auto (Bld) Ordered By: Myriam Galan on 04-27-2023 Basophils/100 WBC (Bld) 0.6 % . [facility] Carbon dioxide, total [Moles /volume] in Serum or PlasmaOrdered By: Myriam Galan on 04-27-2023 CO2 [Moles/Vol] 16.7 mmol/L 21.0-31.0 [facility] Chloride [Moles/volume] in S karla or PlasmaOrdered By: Myriam Galan on 04-27-2023 Chloride [Moles/Vol] 110 mmol/L 98-[address] [facility] Cholesterol [Mass/volume] in Serum or PlasmaOrdered By: Myriam Galan on 04-27-2023 Cholesterol [Mass/Vol] 128 mg/dL 140-200 [facility] Comment on above: Chol less than 200 m g/dl low riskChol 201-239 mg/dl borderline riskChol 240 mg/dl and greater high risk Cholesterol in LDL Calc [Mas s/Vol]Ordered By: Myriam Galan on 04-27-2023 Cholesterol in LDL [Mass/Vol] 69 mg/dL 0-100 [facility] Comment on above: LDL ATP III CLASSIFI CATIONLDL less than 100 mg/dL OptimalLDL 100-129 mg/dL Near or above optimalLDL 130-159 mg/dL Borderline highLDL 160-189 mg/dL HighLDL greater than 189 mg/dL Very high Cholesterol in VLDL Calc [Ma ss/Vol]Ordered By: Myriam Galan on 04-27-2023 Cholesterol in VLDL [Mass/Vol] 18 mg/dL [facility] Creatinine [Mass/volume] in Serum or PlasmaOrdered By: Myriam Galan on 04-27-2023 Creatinine [Mass/Vol] 0.97 mg/dL 0.70-1.30 [facility] Eosinophils Auto (Bld) [#/Vo l]Ordered By: Myriam Galan on 04-27-2023 Eosinophils (Bld) [#/Vol] 0.1 10*3/uL 0.0-0.45 [facility] Eosinophils/100 WBC Auto (Bl d)Ordered By: Myriam Galan on 04-27-2023 Eosinophils/100 WBC (Bld) 1.4 % . [facility] Erythrocyte distribution wid th Auto (RBC) [Ratio]Ordered By: Myriam Galan on 04-27-2023 Erythrocyte distribution width (RBC) [Ratio] 12.5 % 12.0-14.8 [facility] Hematocrit Auto (Bld) [Volum e fraction]Ordered By: Myriam aGlan on 04-27-2023 Hematocrit (Bld) [Volume fraction] 44.6 % 38.8-50.0 [facility] Hemoglobin [Mass/volume] in BloodOrdered By: Myriam Galan on 04-27-2023 Hemoglobin (Bld) [Mass/Vol] 15.5 g/dL 13.0-17.0 [facility] INR in Platelet poor plasma by Coagulation assayOrdered By: Myriam Galan on 04-27-2023 INR Coag (PPP) [Relative time] 1.0 {INR} [facility] Comment on above: INR Therapeutic Rang e [...] Cholesterol [Mass/Vol] 128\S\128 below low threshold 140-200 [facility] [employer] 250 DO Work Phone: Comment on above: Chol less than 200 m g/dl low risk Chol 201-239 mg/dl borderline risk Chol 240 mg/dl and greater high risk Cholesterol in LDL [Mass/Vol] 69\S\69 Normal 0-[address] [facility] [employer] 250 DO Work Phone: Comment on above: [...] RBC Auto (Bld) [#/Vol] 6.8 10*3/uL 4.1-10.5 [facility] Lymphocytes Auto (Bld) [#/Vo l]Ordered By: Myriam Galan on 04-27-2023 Lymphocytes (Bld) [#/Vol] 1.7 10*3/uL 1.00-4.8 [facility] Lymphocytes/100 WBC Auto (Bl d)Ordered By: Myriam Galan on 04-27-2023 Lymphocytes/100 WBC (Bld) 24.5 % . [facility] MCH Auto (RBC) [Entitic mass ]Ordered By: Myriam Galan on 04-27-2023 MCH (RBC) [Entitic mass] 33.4 pg 27.5-35.2 [facility] MCHC Auto (RBC) [Mass/Vol]Or dered By: Myriam Galan on 04-27-2023 MCHC (RBC) [Mass/Vol] 34.6 g/dL 32.5-35.6 [facility] MCV Auto (RBC) [Entitic vol] Ordered By: Myriam Galan on 04-27-2023 MCV (RBC) [Entitic vol] 96.5 fL 83.5-101 [facility] Monocytes Auto (Bld) [#/Vol] Ordered By: Myriam Galan on 04-27-2023 Monocytes (Bld) [#/Vol] 0.4 10*3/uL 0.0-0.8 [facility] Monocytes/100 WBC Auto (Bld) Ordered By: Myriam Galan on 04-27-2023 Monocytes/100 WBC (Bld) 6.4 % . [facility] Neutrophils Auto (Bld) [#/Vo l]Ordered By: Myriam Galan on 04-27-2023 Neutrophils (Bld) [#/Vol] 4.6 10*3/uL 1.8-7.7 [facility] Neutrophils/100 WBC Auto (Bl d)Ordered By: Myriam Galan on 04-27-2023 Neutrophils/100 WBC (Bld) 67.1 % . [facility] No Panel InformationOrdered By: Myriam Galan on 04-27-2023 Estimated GFR (CKD-EPI) > 60.0 mL/Min [facility] Creatinine Clearance (Chem N/A [facility] No Panel Informationon 04-27 29.6\S\29.6 Normal 25.1-36.5 [facility] melody 250 DO Work Phone: Comment on above: A hematocrit value g reater than 55% may lead to inaccurate results in coagulation testing. Patients having hematocrit values >55% require a special collection tube for coagulation studies. Please contact the laboratory at [phone] for redraw instructions.PERFORMED BY:[place] [id number] [place], [place] [phone] MEDICAL DIRECTORJADEN LIRA M.D. 1.0\S\1.0 Normal -[facility] [employer] 250 DO Work Phone: Comment [...] valves: 3 - 4.5 12.0\S\12.0 Normal 9.0-12.9 [facility] 250 DO Work Phone: Comment on above: A hematocrit value g reater than 55% may lead to inaccurate results in coagulation testing. Patients having hematocrit values >55% require a special collection tube for coagulation studies. Please contact the laboratory at [phone] for redraw instructions. 0.0\S\0.0 Normal 0.0-0.2 [facility] 250 DO Work Phone: Comment on above: PERFORMED BY:[facility] [place], [place] [phone] MEDICAL DIRECTORJADEN LIRA M.D. 0.1\S\0.1 Normal 0-0.5 [facility] 250 DO Work Phone: 0.4\S\0.4 Normal 0.0-0.8 [facility] 250 DO Work Phone: 1.7\S\1.7 Normal 1.00-4.8 [facility] 250 DO Work Phone: 4.6\S\4.6 Normal 1.8-7.7 [facility] 250 DO Work Phone: 0.6\S\0.6 Normal . [facility] 250 DO Work Phone: 1.4\S\1.4 Normal . [facility] 250 DO Work Phone: [phone] 6.4\S\6.4 Normal . [facility] 250 DO Work Phone: [phone] 24.5\S\24.5 Normal . [facility] 250 DO Work Phone: [phone] 67.1\S\67.1 Normal . [facility] 250 DO Work Phone: 10.1\S\10.1 Normal 6.6-10.1 [facility] 250 DO Work Phone: [phone] 190\S\190 Normal 150-450 [facility] 250 DO Work Phone: [phone] 12.5\S\12.5 Normal 12.0-14.8 [facility] 250 DO Work Phone: 34.6\S\34.6 Normal 32.5-35.6 [facility] 250 DO Work Phone: [phone] 33.4\S\33.4 Normal 27.5-35.2 [facility] 250 DO Work Phone: [phone] 96.5\S\96.5 Normal 83.5-101 [facility] melody 250 DO Work Phone: [phone] 44.6\S\44.6 Normal 38.8-50.0 [facility] 250 DO Work Phone: [phone] 15.5\S\15.5 Normal 13.0-17.0 [facility] melody 250 DO Work Phone: [phone] 4.63\S\4.63 Normal 3.90-5.60 [facility] melody 250 DO Work Phone: [phone] 6.8\S\6.8 Normal 4.1-10.5 [facility] HeartPepe oliver 250 DO Work Phone: Test not performed\S \Test not performed Normal 6.0-15.0 [facility] Frances oliver 250 DO Work Phone: 16.7\S\16.7 below low threshold 21.0-31.0 [facility] Frances oliver 250 DO Work Phone: 110\S\110 above high threshold 98-107 [facility] Frances oliver 250 DO Work Phone: Normal 3.5-5.1 [facility] HeartPepe oliver 250 DO Work Phone: Comment on above: Specimen hemolyzed, redraw requested LFM 139\S\139 Normal 136-145 [facility] Frances oliver 250 DO Work Phone: 19\S\19 Normal 7-25 [facility] Frances oliver 250 DO Work Phone: > 60.0 Normal [facility] Frances oliver 250 DO Work Phone: 0.97\S\0.97 Normal 0.70-1.30 [facility] Frances oliver 250 DO Work Phone: 3.2\S\3.2 Normal <5.0 [facility] Frances oliver 250 DO Work Phone: Comment on above: PERFORMED BY:[place] [address] [place], [place] [phone] MEDICAL DIRECTORJADEN LIRA M.D. 18\S\18 Normal [facility] Frances oliver 250 DO Work Phone: 94\S\94 Normal 0-149 [facility] Frances oliver 250 DO Work Phone: Comment on above: TRIG ATP III CLASSIF ICATION TRIG less than 150 mg/dL Normal TRIG 150-199 mg/dL Borderline high TRIG 200-500 mg/dL High TRIG greater than 500 mg/dL Very high Standard traceable to the Center for Disease Conrtrol and Prevention (CDC) test method. 40\S\40 Normal 23-92 -[facility] melody 250 DO Work Phone: Comment on above: HDL CHOL ATP-III CLA SSIFICATION Cardiovascular Risk HDL > or equal to 60 mg/dL LOW HDL < 40 mg/dL HIGH Nucleated erythrocytes [Pres ence] in Blood by Automated countOrdered By: Myriam Galan on 04-27-2023 Nucleated RBC Auto Ql (Bld) 0.1 /100{WBC} 0-0.5 [facility] Platelet mean volume Auto (B ld) [Entitic vol]Ordered By: Myriam Galan on 04-27-2023 Platelet mean volume (Bld) [Entitic vol] 10.1 fL 6.6-10.1 [facility] Platelets Auto (Bld) [#/Vol] Ordered By: Myriam Galan on 04-27-2023 Platelets (Bld) [#/Vol] 190 10*3/uL 150-450 [facility] Potassium [Moles/volume] in Serum or PlasmaOrdered By: Myriam Galan on 04-27-2023 Potassium [Moles/Vol] See comment 3.5-5.1 [facility] Comment on above: Specimen hemolyzed, redraw requested LFM Prothrombin time (PT)Ordered By: Myriam Galan on 04-27-2023 PT Coag (PPP) [Time] 12.0 s 9.0-12.[address] [facility] Comment on above: A hematocrit value g reater than 55% may lead to inaccurate results in coagulation testing. Patients having hematocrit values >55% require a special collection tube for coagulation studies. Please contact the laboratory at [phone] for redraw instructions. RBC Auto (Bld) [#/Vol]Ordere d By: Myriam Galan on 04-27-2023 RBC (Bld) [#/Vol] 4.63 10*6/uL 3.90-5.60 [facility] Serum or plasma anion gap de terminationOrdered By: Myriam Galan on 04-27-2023 Anion gap [Moles/Vol] TNP [facility] Comment on above: Test not performed Serum or plasma high density lipoprotein (HDL) cholesterol measurementOrdered By: Myriam Galan on 04-27-2023 Cholesterol in HDL [Mass/Vol] 40 mg/dL 23- [facility] Comment on above: HDL CHOL ATP-III CLA SSIFICATION Cardiovascular RiskHDL > or equal to 60 mg/dL LOWHDL < 40 mg/dL HIGH Serum or plasma total choles terol/high density lipoprotein (HDL) cholesterol mass ratOrdered By: Myriam Galan on 04-27-2023 Cholesterol.total/Chol esterol in HDL [Mass ratio] 3.2 {ratio} <5.0 [facility] Sodium [Moles/volume] in Ser um or PlasmaOrdered By: Myriam Galan on 04-27-2023 Sodium [Moles/Vol] 139 mmol/L 136-145 [facility] Triglyceride [Mass/volume] i n Serum or PlasmaOrdered By: Myriam Galan on 04-27-2023 Triglyceride [Mass/Vol] 94 mg/dL 0-149 [facility] Comment on above: TRIG ATP III CLASSIF ICATIONTRIG less than 150 mg/dL NormalTRIG 150-199 mg/dL Borderline highTRIG 200-500 mg/dL High TRIG greater than 500 mg/dL Very highStandard traceable to the Center for Disease Conrtrol and Prevention (CDC) test method. Urea nitrogen [Mass/volume] in Serum or PlasmaOrdered By: Myriam Galan on 04-27-2023 Urea nitrogen [Mass/Vol] 19 mg/dL 7- [facility] WBC Auto (Bld) [#/Vol]Ordere d By: Myriam Galan on 04-27-2023 WBC (Bld) [#/Vol] 6.8 10*3/uL 4.1-10.5 [facility] Office Visit (Cardiology)on 04-26-2023 Follow-up visit [...] Cardiac Catherization; Status:Active - Retrospective Authorization; Requested for:[id number]; SocHx: Current smoker Tobacco Use Screening; Status:Complete; Done: [id number] Patient Instructions Please bring all medicines, vitamins, [...] original consultation and Dr. Rodriguez notes from [facility]. He has normal stress perfusion imaging in [...] negative for complaint. Vitals Vital Signs Recorded: 26Apr2023 11:27AM Heart Rate62, L Radial Nqjeyfpe140, LUE, Sitting Ljwiocatr32, LUE, Sitting Height6 ft 1 in Phajda417 lb BMI Dlfmtogeks66.96 kg/m2 BSA Calculated2.03 Tobacco Usea) Yes Patient [...] Cardiovascular: caroti (more content not included)... Normal [facility] Tobacco Screening.on 023 Fall risk assessment c) Not medically indicated -[facility] Heart-Sandu melody 250 DO Work Phone: Tobacco use status CPHS a) Yes [facility]-Sandu melody 250 DO Work Phone: Tobacco Screening. Yes [facility] Heart-Sandu melody 250 DO Work Phone: CT CARDIAC SCORINGon 023 CT CARDIAC SCORING Addendum Begins Patient Name: FREEDOM RODGERS ADDENDUM: Technical: The following is to serve as an over-read for an unenhanced cardiac CT, to evaluate the extra vascular structures. Contiguous unenhanced CT sections are performed from level of the ivna to the upper abdomen. Findings: The visualized [...] I10: Hypertension, benign. COMPARISON: None. ACCESSION NUMBER(S): [id number] ORDERING CLINICIAN: LEONEL SANDOVAL TECHNIQUE: Using prospective [...] https://www.scott-nhlbi.or g/MESACHDRisk/MesaRiskSco re/RiskScore.aspx Andrez rojas al. JACC 2014 (http://dx.doi.org/10.101 6/j.j acc.2014.08.035) Reading Marketing Project Lead: Dr. Jd Sánchez, Date: 04/03/2023 6:01 pm Electronically signed by: LILLY MONREAL MD Normal [facility] CT Cardiac Scoringon 023 CT Cardiac Scoring Normal -[facility] Heart-Sandu melody 250 DO Work Phone: Cholesterol [Mass/volume] in Serum or PlasmaOrdered By: Serafin Capps on 03-02-2023 Cholesterol [Mass/Vol] 144 mg/dL 140-200 [facility] Comment on above: Chol less than 200 m g/dl low riskChol 201-239 mg/dl borderline riskChol 240 mg/dl and greater high risk Cholesterol in LDL Calc [Mas s/Vol]Ordered By: Serafin Capps on 03-02-2023 Cholesterol in LDL [Mass/Vol] 48 mg/dL 0-100 [facility] Comment on above: LDL ATP III CLASSIFI CATIONLDL less than 100 mg/dL OptimalLDL 100-129 mg/dL Near or above optimalLDL 130-159 mg/dL Borderline highLDL 160-189 mg/dL HighLDL greater than 189 mg/dL Very high Cholesterol in VLDL Calc [Ma ss/Vol]Ordered By: Serafin Capps on 03-02-2023 Cholesterol in VLDL [Mass/Vol] 59 mg/dL [facility] Serum or plasma high density lipoprotein (HDL) cholesterol measurementOrdered By: Serafin Capps on 03-02-2023 Cholesterol in HDL [Mass/Vol] 36 mg/dL 23-92 [facility] Comment on above: HDL CHOL ATP-III CLA SSIFICATION Cardiovascular RiskHDL > or equal to 60 mg/dL LOWHDL < 40 mg/dL HIGH Serum or plasma total choles terol/high density lipoprotein (HDL) cholesterol mass ratOrdered By: Serafin Capps on 03-02-2023 Cholesterol.total/Chol esterol in HDL [Mass ratio] 4.0 {ratio} <5.0 [facility] Thyrotropin [Units/volume] i n Serum or PlasmaOrdered By: Serafin Capps on 03-02-2023 TSH Qn 1.79 m[IU]/L 0.45-5.33 [facility] Triglyceride [Mass/volume] i n Serum or PlasmaOrdered By: Serafin Capps on 03-02-2023 Triglyceride [Mass/Vol] 299 mg/dL 0-149 [facility] Comment on above: TRIG ATP III CLASSIF ICATIONTRIG less than 150 mg/dL NormalTRIG 150-199 mg/dL Borderline highTRIG 200-500 mg/dL High TRIG greater than 500 mg/dL Very highStandard traceable to the Center for Disease Conrtrol and Prevention (CDC) test method. Vitamin D+Metabolites [Mass/ volume] in Serum or PlasmaOrdered By: Serafin Capps on 03-02-2023 Vitamin D+Metabolites [Mass/Vol] 28.5 ng/mL 30-100 [facility] Comment on above: VITAMIN D STATUS 25( [place])VITAMIN D RANGE (ng/mL) Deficient <20 Insufficient 20 to <30Sufficient 30 to 100Reference: Cecelia MILLER,Austin DAVIS, Ed PATEL, et al. Evaluation,treatment, and prevention of vitamin D deficiency; an Endocrine Society clinical practice guideline. JCEM. 2010; 96(7):1911-30. 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 You may also call [phone] for free resources and assistance.; Status:Complete; Done: [id number] Tobacco Use Screening; Status:Complete; Done: [id number] Patient Instructions Please bring all medicines, vitamins, [...] once daily (more content not included)... Normal [facility] w/ Tobacco Screening.on 023 Fall risk assessment a) No falls within the last year [facility] [employer] 250 DO Work Phone: Tobacco use status CP a) Yes [facility] 250 DO Work Phone: Tobacco Screening. Yes [facility] Heart-Sandu melody 250 DO Work Phone: Calcium [Mass/volume] in Ser um or PlasmaOrdered By: Leonel Sandoval on 02-07-2023 Calcium [Mass/Vol] 9.3 mg/dL 8.6-10.3 [facility] Carbon dioxide, total [Moles /volume] in Serum or PlasmaOrdered By: Leonel Sandoval on 02-07-2023 CO2 [Moles/Vol] 25.1 mmol/L 21.0-31.0 [facility] Cardiovasc Arrhythmia Result son 02-07-2023 Cardiovasc Arrhythmia Results Reason For Visit Reason for Visit: Holter Monitor: FREEDOM is here for the application of a 48 hour Holter monitor. Ordering Physician: JOHAN Santoyo Dr., Diagnosis: palpitations NO equipment agreement signed. FREEDOM understands monitor is to be returned on: 02/09/2023 Monitor number [id number] applied. Holter monitor returned and downloaded. Holter [...] Date/TimeProviderSpecialt ySite 02/20/2023 08:00 Leonel Ambrocio APRN-CNPCardiology703 [facility] 2 Jovanny 250 DO Signatures Electronically signed by : Adelita Mazariegos MD; Feb 17 2023 2:37PM EST (Author) Reviewed by : AISHA Dc; Feb 20 2023 10:48AM EST Normal [facility] Chloride [Moles/volume] in S karla or PlasmaOrdered By: Leonel Sandoval on 02-07-2023 Chloride [Moles/Vol] 109 mmol/L 98-[address] [facility] Creatinine [Mass/volume] in Serum or PlasmaOrdered By: Leonel Sandoval on 02-07-2023 Creatinine [Mass/Vol] 0.90 mg/dL 0.70-1.30 [facility] Glucose [Mass/volume] in Ser um or PlasmaOrdered By: Leonel Sandoval on 02-07-2023 Glucose [Mass/Vol] 126 mg/dL 70-100 [facility] Comment on above: ADA recommended refe rence rangeRandom Glucose Reference Range is dependent on time and content of last meal. Glucose of more than 200 mg/dL in a nonstressed, ambulatory subject supports the diagnosis of Diabetes Mellitus. No Panel InformationOrdered By: Leonel Sandoval on 02-07-2023 Estimated GFR (CKD-EPI) > 60.0 mL/Min [facility] Creatinine Clearance (Chem N/A [facility] No Panel Informationon 02-07 > 60.0 [facility] DO Work Phone: 11.9\S\11.9 Normal 6.0-15.0 [facility] Heart-Kim melody 250 DO Work Phone: 9.3\S\9.3 Normal 8.6-10.3 [facility]-Kim melody 250 DO Work Phone: Comment on above: PERFORMED BY:[place] [id number] [place], [place] [id number] MEDICAL DIRECTORJADEN LIRA M.D. 25.1\S\25.1 Normal 21.0-31.0 [facility] HeartZolloKim melody 250 DO Work Phone: 109\S\109 above high threshold 98-107 [facility] JennZolloKim melody 250 DO Work Phone: 4.0\S\4.0 Normal 3.5-5.1 [facility] Frances melody 250 DO Work Phone: 142\S\142 Normal 136-145 [facility] HeartPepe melody 250 DO Work Phone: 0.90\S\0.90 Normal 0.70-1.30 [facility] HeartPepe melody 250 DO Work Phone: 24\S\24 Normal 7-25 [facility] Frances melody 250 DO Work Phone: 126\S\126 above high threshold 70-100 [facility] HeartPepe melody 250 DO Work Phone: Comment on above: Random Glucose Refer ence Range is dependent on time and content of last meal. Glucose of more than 200 mg/dL in a nonstressed, ambulatory subject supports the diagnosis of Diabetes Mellitus. ADA recommended reference range Potassium [Moles/volume] in Serum or PlasmaOrdered By: Leonel Sandoval on 02-07-2023 Potassium [Moles/Vol] 4.0 mmol/L 3.5-5.1 [facility] Serum or plasma anion gap de terminationOrdered By: Leonel Sandoval on 02-07-2023 Anion gap [Moles/Vol] 11.9 mmol/L 6.0-15.0 [facility] Sodium [Moles/volume] in Ser um or PlasmaOrdered By: Leonel Sandoval on 02-07-2023 Sodium [Moles/Vol] 142 mmol/L 136-145 [facility] Urea nitrogen [Mass/volume] in Serum or PlasmaOrdered By: Leonel Sandoval on 02-07-2023 Urea nitrogen [Mass/Vol] 24 mg/dL 7 [facility] CARDIAC STRESS/REST INJE CTIONon 02-06-2023 [facility] CARDIAC STRESS/REST INJECTION Patient Name: FREEDOM RODGERS STUDY: MYOCARDIAL PERFUSION STRESS TEST WITH LEXISCAN Performing facility: [facility], [address] [place] [address], [address], [address] Provider: Leonel Sandoval RN, TENDER LABOR PCP: Dr. Jeffry Hooks Supervising provider: Wang Seals MD, [facility] INDICATION: Chest Pain; HTN Mixed Hyperlipidemia HISTORY: Gender: M; Age: 62 y/o ; Height: 0 cm; Weight: 82.3549080 kg. Diabetes; High Cholesterol; HTN; Palpitations; Chest Pain; Currently smoking. COMPARISON: No comparison. ACCESSION NUMBER(S): [id number]; [id number]; [id number] ORDERING CLINICIAN: LEONEL SANDOVAL TECHNIQUE: ONE DAY [...] Electronically signed by: FELICITAS FELIPE MD Normal [facility] No Panel Informationon 02-06 Normal -[facility] HeartCHiWAO Mobile App melody 250 DO Work Phone: Office Visit [...] we can help. You may also call [phone] for free resources and assistance.; Status:Complete; Done: [id number] Tobacco Use Screening; Status:Complete; Done: [id number] Patient Instructions Please bring all medicines, vitamins, [...] contact the office if new symptoms arise. 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 Patient presents to the office ambulatory steady gait. This is initial in clinic follow-up at [facility]. December 2022 hospitalized at [facility] due to chest pain, seen in consult by Dr. Galan. Chest pain felt to be atypical, he ruled out for ACS. Inpatient echo EF 55 to 60%, no wall motion abnormality. No changes to medical regimen at time of discharge. 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 He reports having recurrent palpitations and was supposed to get an implantable loop recorder but did not follow-up. He reports he continues to have palpitations that are similar to his prior AVNRT symptoms. They are occurring almost on a daily basis but is noted increased frequency and intensity especially over the last month. He has been utilizing an Office Center Watch where his heart rate will be [...] of premature coronary artery disease in father [place] at 40 Blood pressure remains elevated in [...] chest keara (more content not included)... Normal [facility] w/ Tobacco Screening.on 023 Adult depression screening assessment No [facility] [employer] 250 DO Work Phone: Tobacco use status CPHS a) Yes [facility] CommitChange 250 DO Work Phone: Tobacco Screening. Yes [facility] CommitChange 250 DO Work Phone: Activated partial thrombopla stin time (aPTT) in platelet poor plasma by coagulation aOrdered By: Alexy Albarran on 01-12-2023 aPTT Coag (PPP) [Time] 31.1 s 25.1-36.5 [facility] Alanine aminotransferase [En zymatic activity/volume] in Serum or PlasmaOrdered By: Alexy Albarran on 01-12-2023 ALT [Catalytic activity/Vol] 32 U/L 7-52 [facility] Albumin [Mass/volume] in Ser um or Plasma by Bromocresol green (BCG) dye binding methoOrdered By: Alexy Albarran on 01-12-2023 Albumin BCG dye [Mass/Vol] 4.6 g/dL 3.5-5.7 [facility] Alkaline phosphatase [Enzyma tic activity/volume] in Serum or PlasmaOrdered By: Alexy Albarran on 01-12-2023 ALP [Catalytic activity/Vol] 120 U/L 34-104 [facility] Aspartate aminotransferase [ Enzymatic activity/volume] in Serum or PlasmaOrdered By: Alexy Albarran on 01-12-2023 AST [Catalytic activity/Vol] 21 U/L 13-39 [facility] Basophils Auto (Bld) [#/Vol] Ordered By: Alexy Albarran on 01-12-2023 Basophils (Bld) [#/Vol] 0.1 10*3/uL 0.0-0.2 [facility] Basophils/100 WBC Auto (Bld) Ordered By: Alexy Albarran on 01-12-2023 Basophils/100 WBC (Bld) 0.8 % . [facility] Bilirubin.direct [Mass/volum e] in Serum or PlasmaOrdered By: Alexy Albarran on 01-12-2023 Bilirubin.direct [Mass/Vol] 0.10 mg/dL 0.03-0.18 [facility] Bilirubin.total [Mass/volume ] in Serum or PlasmaOrdered By: Alexy Albarran on 01-12-2023 Bilirubin [Mass/Vol] 0.6 mg/dL 0.3-1.[address] [facility] Calcium [Mass/volume] in Ser um or PlasmaOrdered By: Alexy Albarran on 01-12-2023 Calcium [Mass/Vol] 9.6 mg/dL 8.6-10.3 [facility] Carbon dioxide, total [Moles /volume] in Serum or PlasmaOrdered By: Alexy Albarran on 01-12-2023 CO2 [Moles/Vol] 24.7 mmol/L 21.0-31.0 [facility] Chloride [Moles/volume] in S karla or PlasmaOrdered By: Alexy Albarran 01-12-2023 Chloride [Moles/Vol] 111 mmol/L 98-[address] [facility] Cholesterol [Mass/volume] in Serum or PlasmaOrdered By: Chantel Hassan on 01-12-2023 Cholesterol [Mass/Vol] 118 mg/dL 140-200 [facility] Comment on above: Chol less than 200 m g/dl low riskChol 201-239 mg/dl borderline riskChol 240 mg/dl and greater high risk Cholesterol in LDL Calc [Mas s/Vol]Ordered By: Chantel Cookomamerna on 01-12-2023 Cholesterol in LDL [Mass/Vol] 61 mg/dL 0-100 [facility] Comment on above: LDL ATP III CLASSIFI CATIONLDL less than 100 mg/dL OptimalLDL 100-129 mg/dL Near or above optimalLDL 130-159 mg/dL Borderline highLDL 160-189 mg/dL HighLDL greater than 189 mg/dL Very high Cholesterol in VLDL Calc [Ma ss/Vol]Ordered By: Chantel Hassan on 01-12-2023 Cholesterol in VLDL [Mass/Vol] 14 mg/dL [facility] Creatine kinase [Enzymatic a ctivity/volume] in Serum or PlasmaOrdered By: Alexy Albarran on 01-12-2023 CK [Catalytic activity/Vol] 97 U/L 30-223 [facility] Creatinine [Mass/volume] in Serum or PlasmaOrdered By: Alexy Albarran on 01-12-2023 Creatinine [Mass/Vol] 1.01 mg/dL 0.70-1.30 [facility] Eosinophils Auto (Bld) [#/Vo l]Ordered By: Alexy Albarran on 01-12-2023 Eosinophils (Bld) [#/Vol] 0.2 10*3/uL 0.0-0.45 [facility] Eosinophils/100 WBC Auto (Bl d)Ordered By: Alexy Albarran on 01-12-2023 Eosinophils/100 WBC (Bld) 3.1 % . [facility] Erythrocyte distribution wid th Auto (RBC) [Ratio]Ordered By: Alexy Albarran on 01-12-2023 Erythrocyte distribution width (RBC) [Ratio] 12.7 % 12.0-14.8 [facility] Globulin Calc (S) [Mass/Vol] Ordered By: Alexy Albarran on 01-12-2023 Globulin (S) [Mass/Vol] 2.5 g/dL [facility] Glucose [Mass/volume] in Ser um or PlasmaOrdered By: Alexy Albarran on 01-12-2023 Glucose [Mass/Vol] 135 mg/dL 70-100 [facility] Comment on above: ADA recommended refe [...] from glycated hemoglobin (Bld) [Mass/Vol] 146 mg/dL [facility] Hematocrit Auto (Bld) [Volum e fraction]Ordered By: Alexy Albarran on 01-12-2023 Hematocrit (Bld) [Volume fraction] 41.2 % 38.8-50.0 [facility] Hemoglobin A1c percentageOrd ered By: Chantel Hassan on 01-12-2023 HbA1c (Bld) [Mass fraction] 6.7 % 4.3-5.6 [facility] Comment on above: Increased risk for d iabetes: 5.7 - 6.4diabetes: >6.4glycemic control for adults with diabetes: <7.0 Hemoglobin [Mass/volume] in BloodOrdered By: Alexy Albarran on 01-12-2023 Hemoglobin (Bld) [Mass/Vol] 14.6 g/dL 13.0-17.0 [facility] Laboratory - CoagulationOrde red By: Alexy Albarran on 01-12-2023 PT Coag (PPP) [Time] 11.2 s 9.0-12.[address] [facility] Leukocytes [#/volume] correc velasquez for nucleated erythrocytes in Blood by Automated counOrdered By: Alexy Albarran on 01-12-2023 WBC corrected for nucl RBC Auto (Bld) [#/Vol] 6.8 10*3/uL 4.1-10.5 [facility] Lipase [Enzymatic activity/v olume] in Serum or PlasmaOrdered By: Alexy Alabrran on 01-12-2023 Lipase [Catalytic activity/Vol] 49.0 U/L 11.0-82.0 [facility] Lymphocytes Auto (Bld) [#/Vo l]Ordered By: Alexy Albarran on 01-12-2023 Lymphocytes (Bld) [#/Vol] 1.4 10*3/uL 1.00-4.8 [facility] Lymphocytes/100 WBC Auto (Bl d)Ordered By: Alexy Albarran on 01-12-2023 Lymphocytes/100 WBC (Bld) 21.2 % . [facility] MCH Auto (RBC) [Entitic mass ]Ordered By: Alexy Albarran on 01-12-2023 MCH (RBC) [Entitic mass] 33.4 pg 27.5-35.2 [facility] MCHC Auto (RBC) [Mass/Vol]Or dered By: Alexy Albarran on 01-12-2023 MCHC (RBC) [Mass/Vol] 35.5 g/dL 32.5-35.6 [facility] MCV Auto (RBC) [Entitic vol] Ordered By: Alexy Albarran on 01-12-2023 MCV (RBC) [Entitic vol] 94.2 fL 83.5-101 [facility] Monocyte distribution width [Entitic volume] in Blood by AutomatedOrdered By: Alexy Albarran on 01-12-2023 Monocyte distribution width Auto (Bld) [Entitic vol] 15.97 % 0.00-20.00 [facility] Monocytes Auto (Bld) [#/Vol] Ordered By: Alexy Albarran on 01-12-2023 Monocytes (Bld) [#/Vol] 0.5 10*3/uL 0.0-0.8 [facility] Monocytes/100 WBC Auto (Bld) Ordered By: Alexy Albarran on 01-12-2023 Monocytes/100 WBC (Bld) 7.9 % . [facility] Natriuretic peptide B [Mass/ Vol]Ordered By: Alexy Albarran on 01-12-2023 Natriuretic peptide B (Bld) [Mass/Vol] 76.0 pg/mL 5-100 [facility] Neutrophils Auto (Bld) [#/Vo l]Ordered By: Alexy Albarran on 01-12-2023 Neutrophils (Bld) [#/Vol] 4.5 10*3/uL 1.8-7.7 [facility] Neutrophils/100 WBC Auto (Bl d)Ordered By: Alexy Albarran on 01-12-2023 Neutrophils/100 WBC (Bld) 67.0 % . [facility] No Panel InformationOrdered By: Alexy Albarran on 01-12-2023 Estimated GFR (CKD-EPI) > 60.0 mL/Min [facility] Creatinine Clearance (Chem 85.37 [facility] Nucleated erythrocytes [Pres ence] in Blood by Automated countOrdered By: Alexy Albarran on 01-12-2023 Nucleated RBC Auto Ql (Bld) 0.1 /100{WBC} 0-0.5 [facility] Platelet mean volume Auto (B ld) [Entitic vol]Ordered By: Alexy Albarran on 01-12-2023 Platelet mean volume (Bld) [Entitic vol] 8.7 fL 6.6-10.1 [facility] Platelet poor plasma interna tional normalized ratio (INR) by coagulation assay (relatOrdered By: Alexy Albarran on 01-12-2023 INR Coag (PPP) [Relative time] 1.0 {INR} [facility] Comment on above: INR Therapeutic Rang e [...] 01-12-2023 Platelets (Bld) [#/Vol] 204 10*3/uL 150-450 [facility] Potassium [Moles/volume] in Serum or PlasmaOrdered By: Alexy Albarran on 01-12-2023 Potassium [Moles/Vol] 3.7 mmol/L 3.5-5.1 [facility] Protein [Mass/volume] in Ser um or PlasmaOrdered By: Alexy Albarran on 01-12-2023 Protein [Mass/Vol] 7.1 g/dL 6.4-8.9 [facility] RBC Auto (Bld) [#/Vol]Ordere d By: Alexy Albarran on 01-12-2023 RBC (Bld) [#/Vol] 4.37 10*6/uL 3.90-5.60 [facility] Serum or plasma albumin/glob ulin mass ratioOrdered By: Alexy Albarran on 01-12-2023 Albumin/Globulin [Mass ratio] 1.8 {ratio} [facility] Serum or plasma anion gap de terminationOrdered By: Alexy Albarran on 01-12-2023 Anion gap [Moles/Vol] 11.0 mmol/L 6.0-15.0 [facility] Serum or plasma high density lipoprotein (HDL) cholesterol measurementOrdered By: Chantel Hassan on 01-12-2023 Cholesterol in HDL [Mass/Vol] 42 mg/dL 23-92 [facility] Comment on above: HDL CHOL ATP-III CLA SSIFICATION Cardiovascular RiskHDL > or equal to 60 mg/dL LOWHDL < 40 mg/dL HIGH Serum or plasma non-glucuron idated bilirubin measurement (mass/volume)Ordered By: Alexy Albarran on 01-12-2023 Bilirubin.indirect [Mass/Vol] 0.5 mg/dL [facility] Serum or plasma total choles terol/high density lipoprotein (HDL) cholesterol mass ratOrdered By: Chantel Hassan on 01-12-2023 Cholesterol.total/Chol esterol in HDL [Mass ratio] 2.8 {ratio} <5.0 [facility] Sodium [Moles/volume] in Ser um or PlasmaOrdered By: Alexy Albarran on 01-12-2023 Sodium [Moles/Vol] 143 mmol/L 136-145 [facility] Triglyceride [Mass/volume] i n Serum or PlasmaOrdered By: Chantel Hassan on 01-12-2023 Triglyceride [Mass/Vol] 74 mg/dL 0-149 [facility] Comment on above: TRIG ATP III CLASSIF [...] <= 0.01 ng/mL [Mass/Vol] 8.0 pg/mL 0.0-20.0 [facility] Troponin I.cardiac [Mass/vol ume] in Serum or Plasma by Detection limit <= 0.01 ng/Ordered By: Alexy Albarran on 01-12-2023 Troponin I.cardiac DL <= 0.01 ng/mL [Mass/Vol] 8.8 pg/mL 0.0-20.0 [facility] Urea nitrogen [Mass/volume] in Serum or PlasmaOrdered By: Alexy Albarran on 01-12-2023 Urea nitrogen [Mass/Vol] 18 mg/dL 02-21 [facility] WBC Auto (Bld) [#/Vol]Ordere d By: Alexy Albarran on 01-12-2023 WBC (Bld) [#/Vol] 6.8 10*3/uL 4.1-10.5 [facility] US EXT NON VASC LIMITED RTon [...] TRI COLE Date: 2022-10-13 09:48 Normal [facility] Activated partial thrombopla stin time (aPTT) in platelet poor plasma by coagulation aOrdered By: Jd Mcdowell on 09-24-2022 aPTT Coag (PPP) [Time] 31.5 s 25.1-36.5 [facility] Automated erythrocytes count in urine sediment (number/area)Ordered By: Jd Mcdowell on 09-24-2022 RBC Auto (Urine sed) [#/Area] 5-9 [HPF] 0-4 [facility] Automated leukocytes count i n urine sediment (number/area)Ordered By: Jd Mcdowell on 09-24-2022 WBC Auto (Urine sed) [#/Area] 3-4 [HPF] 0-4 [facility] Automated urine hyaline cast s count (number/volume)Ordered By: Jd Mcdowell on 09-24-2022 Hyaline casts Auto (U) [#/Vol] 10-19 [LPF] 0-1 [facility] Basophils Auto (Bld) [#/Vol] Ordered By: Jd Mcdowell on 09-24-2022 Basophils (Bld) [#/Vol] 0.0 10*3/uL 0.0-0.2 [facility] Basophils/100 WBC Auto (Bld) Ordered By: Jd Mcdowell on 09-24-2022 Basophils/100 WBC (Bld) 0.4 % . [facility] Bilirubin Test strip Ql (U)O rdered By: Jd Mcdowell on 09-24-2022 Bilirubin Ql (U) Negative Negative [facility] COVID CepheidOrdered By: Felton Mcdowell on 09-24-2022 SARS-CoV-2 (COVID-19) Ab IA Ql Negative Negative [facility] Comment on above: This is a duplicate [employer] CoV-2/Flu/RSV Plus RNA by RT-PCR result to be used for statistical tracking purpose only. SARS-CoV-2 (COVID-19) RNA RODOLFO+probe Ql (Unsp spec) [facility] Calcium [Mass/volume] in Ser um or PlasmaOrdered By: Jd Mcdowell on 09-24-2022 Calcium [Mass/Vol] 8.4 mg/dL 8.2-10.2 [facility] Carbon dioxide, total [Moles /volume] in Serum or PlasmaOrdered By: Jd Mcdowell on 09-24-2022 CO2 [Moles/Vol] 18.9 mmol/L 22.0-30.0 [facility] Casts typing in urine sedime nt by light microscopyOrdered By: Jd Mcdowell on 09-24-2022 Casts LM Nom (Urine sed) N/A [facility] Chloride [Moles/volume] in S karla or PlasmaOrdered By: Jd Mcdowell on 09-24-2022 Chloride [Moles/Vol] 107 mmol/L 95-[address] [facility] Color Auto (U)Ordered By: Franci Mcdowell on 09-24-2022 Color (U) Yellow Yellow [facility] Creatine kinase [Enzymatic a ctivity/volume] in Serum or PlasmaOrdered By: Jd Mcdowell on 09-24-2022 CK [Catalytic activity/Vol] 95 U/L 22-269 [facility] Creatine kinase.MB [Mass/vol ume] in Serum or PlasmaOrdered By: Jd Mcdowell on 09-24-2022 CK.MB [Mass/Vol] 0.6 ng/mL 0.6-6.3 [facility] Creatinine and Glomerular fi ltration rate.predicted panel (S/P/Bld)Ordered By: Jd Mcdowell on 09-24-2022 Creatinine [Mass/Vol] 1.32 mg/dL 0.64-1.27 [facility] Eosinophils Auto (Bld) [#/Vo l]Ordered By: Jd Mcdowell on 09-24-2022 Eosinophils (Bld) [#/Vol] 0.0 10*3/uL 0.0-0.45 [facility] Eosinophils/100 WBC Auto (Bl d)Ordered By: Jd Mcdowell on 09-24-2022 Eosinophils/100 WBC (Bld) 0.0 % . [facility] Erythrocyte distribution wid th Auto (RBC) [Ratio]Ordered By: Jd Mcdowell on 09-24-2022 Erythrocyte distribution width (RBC) [Ratio] 13.1 % 12.0-14.8 [facility] Estimated glomerular filtrat ion rate (GFR) non- AmericanOrdered By: Jd Mcdowell on 09-24-2022 GFR/1.73 sq M.predicted among non-blacks MDRD (S/P/Bld) [Vol rate/Area] 55 mL/Min [facility] Glucose [Mass/volume] in Ser um or PlasmaOrdered By: Jd Mcdowell on 09-24-2022 Glucose [Mass/Vol] 147 mg/dL 70-100 [facility] Comment on above: ADA recommended refe rence rangeRandom Glucose Reference Range is dependent on time and content of last meal. Glucose of more than 200 mg/dL in a nonstressed, ambulatory subject supports the diagnosis of Diabetes Mellitus. Hematocrit Auto (Bld) [Volum e fraction]Ordered By: Jd Mcdowell on 09-24-2022 Hematocrit (Bld) [Volume fraction] 39.7 % 38.8-50.0 [facility] Hemoglobin [Mass/volume] in BloodOrdered By: Jd Mcdowell on 09-24-2022 Hemoglobin (Bld) [Mass/Vol] 13.7 g/dL 13.0-17.0 [facility] Ketones Auto test strip (U) [Mass/Vol]Ordered By: Jd Mcdowell on 09-24-2022 Ketones (U) [Mass/Vol] Trace Negative [facility] Laboratory - Chemistry and C hemistry - challengeOrdered By: Jd Mcdowell on 09-24-2022 Natriuretic peptide B (Bld) [Mass/Vol] 14.0 pg/mL 5-100 [facility] Laboratory - CoagulationOrde red By: Jd Mcdowell on 09-24-2022 PT Coag (PPP) [Time] 13.3 s 9.0-12.[address] [facility] Leukocytes [#/volume] correc velasquez for nucleated erythrocytes in Blood by Automated counOrdered By: Jd Mcdowell on 09-24-2022 WBC corrected for nucl RBC Auto (Bld) [#/Vol] 5.4 10*3/uL 4.1-10.5 [facility] Lymphocytes Auto (Bld) [#/Vo l]Ordered By: Jd Mcdowell on 09-24-2022 Lymphocytes (Bld) [#/Vol] 1.1 10*3/uL 1.00-4.8 [facility] Lymphocytes/100 WBC Auto (Bl d)Ordered By: Jd Mcdowell on 09-24-2022 Lymphocytes/100 WBC (Bld) 20.2 % . [facility] MCH Auto (RBC) [Entitic mass ]Ordered By: Jd Mcdowell on 09-24-2022 MCH (RBC) [Entitic mass] 33.4 pg 27.5-35.2 [facility] MCHC Auto (RBC) [Mass/Vol]Or dered By: Jd Mcdowell on 09-24-2022 MCHC (RBC) [Mass/Vol] 34.4 g/dL 32.5-35.6 [facility] MCV Auto (RBC) [Entitic vol] Ordered By: Jd Mcdowell on 09-24-2022 MCV (RBC) [Entitic vol] 97.0 fL 83.5-101 [facility] Monocyte distribution width [Entitic volume] in Blood by AutomatedOrdered By: Jd Mcdowell on 09-24-2022 Monocyte distribution width Auto (Bld) [Entitic vol] 23.66 % 0.00-20.00 [facility] Comment on above: For adults in ED, MD W > 20.0 may be associated with a higher risk of sepsis during the first 12 hrs of hospital admission Monocytes Auto (Bld) [#/Vol] Ordered By: Jd Mcdowell on 09-24-2022 Monocytes (Bld) [#/Vol] 0.6 10*3/uL 0.0-0.8 [facility] Monocytes/100 WBC Auto (Bld) Ordered By: Jd Mcdowell on 09-24-2022 Monocytes/100 WBC (Bld) 10.8 % . [facility] Neutrophils Auto (Bld) [#/Vo l]Ordered By: Jd Mcdowell on 09-24-2022 Neutrophils (Bld) [#/Vol] 3.7 10*3/uL 1.8-7.7 [facility] Neutrophils/100 WBC Auto (Bl d)Ordered By: Jd Mcdowell on 09-24-2022 Neutrophils/100 WBC (Bld) 68.6 % . [facility] Nitrite Test strip Ql (U)Ord ered By: Jd Mcdowell on 09-24-2022 Nitrite Ql (U) Negative Negative [facility] No Panel InformationOrdered By: dJ Mcdowell on 09-24-2022 D-Dimer Quantitative (PE/DVT) 212 ng/mL 0-243 [facility] Comment on above: The reference range for [...] conditions. Estimated GFR () > 60 mL/Min [facility] Comment on above: GFR estimated refere nce range: According to KDOQI guidelines, <60 ml/min/1.73m2 is sufficient to diagnose a patient with chronic kidney disease. Pharmacy Creatinine Clearance (Chem 67.26 [facility] Nucleated erythrocytes [Pres ence] in Blood by Automated countOrdered By: Jd Mcdowell on 09-24-2022 Nucleated RBC Auto Ql (Bld) 0.1 /100{WBC} 0-0.5 [facility] Platelet mean volume Auto (B ld) [Entitic vol]Ordered By: Jd Mcdowell on 09-24-2022 Platelet mean volume (Bld) [Entitic vol] 9.0 fL 6.6-10.1 [facility] Platelet poor plasma interna tional normalized ratio (INR) by coagulation assay (relatOrdered By: Jd Mcdowell on 09-24-2022 INR Coag (PPP) [Relative time] 1.1 {INR} [facility] Comment on above: INR Therapeutic Rang e [...] 09-24-2022 Platelets (Bld) [#/Vol] 137 10*3/uL 150-450 [facility] Potassium [Moles/volume] in Serum or PlasmaOrdered By: Jd Mcdowell on 09-24-2022 Potassium [Moles/Vol] 3.2 mmol/L 3.5-5.1 [facility] Protein Auto test strip (U) [Mass/Vol]Ordered By: Jd Mcdowell on 09-24-2022 Protein (U) [Mass/Vol] 100 mg/dL Negative [facility] RBC Auto (Bld) [#/Vol]Ordere d By: Jd Mcdowell on 09-24-2022 RBC (Bld) [#/Vol] 4.09 10*6/uL 3.90-5.60 [facility] Serum or plasma anion gap de terminationOrdered By: Jd Mcdowell on 09-24-2022 Anion gap [Moles/Vol] 12.3 mmol/L 6.0-15.0 [facility] Serum or plasma creatine kin ase MB (CKMB)/total creatine kinase (CK) ratio by calculaOrdered By: Jd Mcdowell on 09-24-2022 CK.MB Calc [Catalytic fraction] 0.6 % 0.00-2.50 [facility] Serum or plasma ethanol alida urement (mass/volume)Ordered By: Jd Mcdowell on 09-24-2022 Ethanol [Mass/Vol] mg/dL [facility] Ethanol [Mass/Vol] TNP [facility] Comment on above: Test not performed Sodium [Moles/volume] in Ser um or PlasmaOrdered By: Jd Mcdowell on 09-24-2022 Sodium [Moles/Vol] 135 mmol/L 136-146 [facility] Specific gravity Auto test s trip (U) [Rel density]Ordered By: Jd Mcdowell on 09-24-2022 Specific gravity (U) [Rel density] 1.027 1.001-1.030 [facility] Squamous epithelial cells de tection in urine sediment by light microscopyOrdered By: Jd Mcdowell on 09-24-2022 Epithelial cells.squamous LM Ql (Urine sed) 1-2 [HPF] 0-2 [facility] Troponin I.cardiac [Mass/vol ume] in Serum or Plasma by High sensitivity methodOrdered By: Jd Mcdowell on 09-24-2022 Troponin I.cardiac High sensitivity method [Mass/Vol] 27 pg/mL 0-20 [facility] Urea nitrogen [Mass/volume] in Serum or PlasmaOrdered By: Jd Mcdowell on 09-24-2022 Urea nitrogen [Mass/Vol] 16 mg/dL 9-23 [facility] Urine bacteria detection by automated methodOrdered By: Jd Mcdowell on 09-24-2022 Bacteria Auto Ql (U) None seen None Seen [facility] Urine clarity by refractomet ry automatedOrdered By: Jd Mcdowell on 09-24-2022 Clarity Refractometry automated (U) Cloudy Clear [facility] Urine glucose measurement by automated test strip (mass/volume)Ordered By: Jd Mcdowell on 09-24-2022 Glucose Auto test strip (U) [Mass/Vol] Normal mg/dL Normal [facility] Urine hemoglobin detection b y automated test stripOrdered By: Jd Mcdowell on 09-24-2022 Hemoglobin Auto test strip Ql (U) Negative Negative [facility] Urine leukocyte esterase det ection by automated test stripOrdered By: Jd Mcdowell on 09-24-2022 Leukocyte esterase Auto test strip Ql (U) Negative Negative [facility] Urobilinogen Auto test strip (U) [Mass/Vol]Ordered By: Jd Mcdowell on 09-24-2022 Urobilinogen (U) [Mass/Vol] Normal mg/dL Normal [facility] WBC Auto (Bld) [#/Vol]Ordere d By: Jd Mcdowell on 09-24-2022 WBC (Bld) [#/Vol] 5.4 10*3/uL 4.1-10.5 [facility] pH Auto test strip (U)Ordere d By: Jd Mcdowell on 09-24-2022 pH (U) 5.5 [pH] 5.0-9.0 [facility] Albumin [Mass/volume] in Ser um or PlasmaOrdered By: Emir Tejada on 08-21-2022 Albumin [Mass/Vol] 4.2 g/dL 3.2-5.5 [facility] Automated erythrocytes count in urine sediment (number/area)Ordered By: Emir Tejada on 08-21-2022 RBC Auto (Urine sed) [#/Area] 0-1 [HPF] 0-4 [facility] Automated leukocytes count i n urine sediment (number/area)Ordered By: Emir Tejada on 08-21-2022 WBC Auto (Urine sed) [#/Area] None seen [HPF] 0-4 [facility] Basophils Auto (Bld) [#/Vol] Ordered By: Emir Tejada on 08-21-2022 Basophils (Bld) [#/Vol] 0.0 10*3/uL 0.0-0.2 [facility] Basophils/100 WBC Auto (Bld) Ordered By: Emir Tejada on 08-21-2022 Basophils/100 WBC (Bld) 0.6 % . [facility] Bilirubin Test strip Ql (U)O rdered By: Emir Tejada on 08-21-2022 Bilirubin Ql (U) Negative Negative [facility] Color Auto (U)Ordered By: Anirudh Tejada on 08-21-2022 Color (U) Yellow Yellow [facility] Creatinine and Glomerular fi ltration rate.predicted panel (S/P/Bld)Ordered By: Emir Tejada on 08-21-2022 Creatinine [Mass/Vol] 1.16 mg/dL 0.64-1.27 [facility] Eosinophils Auto (Bld) [#/Vo l]Ordered By: Emir Tejada on 08-21-2022 Eosinophils (Bld) [#/Vol] 0.2 10*3/uL 0.0-0.45 [facility] Eosinophils/100 WBC Auto (Bl d)Ordered By: Emir Tejada on 08-21-2022 Eosinophils/100 WBC (Bld) 2.9 % . [facility] Erythrocyte distribution wid th Auto (RBC) [Ratio]Ordered By: Emir Tejada on 08-21-2022 Erythrocyte distribution width (RBC) [Ratio] 12.7 % 12.0-14.8 [facility] Estimated glomerular filtrat ion rate (GFR) non- AmericanOrdered By: Emir Tejada on 08-21-2022 GFR/1.73 sq M.predicted among non-blacks MDRD (S/P/Bld) [Vol rate/Area] > 60 mL/Min [facility] Globulin Calc (S) [Mass/Vol] Ordered By: Emir Tejada on 08-21-2022 Globulin (S) [Mass/Vol] 2.6 g/dL [facility] Hematocrit Auto (Bld) [Volum e fraction]Ordered By: Emir Tejada on 08-21-2022 Hematocrit (Bld) [Volume fraction] 42.4 % 38.8-50.0 [facility] Hemoglobin [Mass/volume] in BloodOrdered By: Emir Tejada on 08-21-2022 Hemoglobin (Bld) [Mass/Vol] 15.0 g/dL 13.0-17.0 [facility] Ketones Auto test strip (U) [Mass/Vol]Ordered By: Emir Tejada on 08-21-2022 Ketones (U) [Mass/Vol] Negative Negative [facility] Laboratory - Chemistry and C hemistry - challengeOrdered By: Emir Tejada on 08-21-2022 Lipase [Catalytic activity/Vol] 48.0 U/L [facility] Laboratory - UrinalysisOrder ed By: Emir Tejada on 08-21-2022 Hyaline casts LM Ql (Urine sed) 0-8 [LPF] 0-8 [facility] Leukocytes [#/volume] correc velasquez for nucleated erythrocytes in Blood by Automated counOrdered By: Emir Tejada on 08-21-2022 WBC corrected for nucl RBC Auto (Bld) [#/Vol] 7.2 10*3/uL 4.1-10.5 [facility] Lymphocytes Auto (Bld) [#/Vo l]Ordered By: Emir Tejada on 08-21-2022 Lymphocytes (Bld) [#/Vol] 1.5 10*3/uL 1.00-4.8 [facility] Lymphocytes/100 WBC Auto (Bl d)Ordered By: Emir Tejada on 08-21-2022 Lymphocytes/100 WBC (Bld) 20.6 % . [facility] MCH Auto (RBC) [Entitic mass ]Ordered By: Emir Tejada on 08-21-2022 MCH (RBC) [Entitic mass] 33.6 pg 27.5-35.2 [facility] MCHC Auto (RBC) [Mass/Vol]Or dered By: Emir Tejada on 08-21-2022 MCHC (RBC) [Mass/Vol] 35.5 g/dL 32.5-35.6 [facility] MCV Auto (RBC) [Entitic vol] Ordered By: Emir Tejada on 01-22-2023 MCV (RBC) [Entitic vol] 94.6 fL 83.5-101 [facility] Monocyte distribution width [Entitic volume] in Blood by AutomatedOrdered By: Emir Tejada on 08-21-2022 Monocyte distribution width Auto (Bld) [Entitic vol] 19.02 % 0.00-20.00 [facility] Monocytes Auto (Bld) [#/Vol] Ordered By: Emir Tejada on 08-21-2022 Monocytes (Bld) [#/Vol] 0.6 10*3/uL 0.0-0.8 [facility] Monocytes/100 WBC Auto (Bld) Ordered By: Emir Tejada on 08-21-2022 Monocytes/100 WBC (Bld) 8.7 % . [facility] Neutrophils Auto (Bld) [#/Vo l]Ordered By: Emir Tejada on 08-21-2022 Neutrophils (Bld) [#/Vol] 4.9 10*3/uL 1.8-7.7 [facility] Neutrophils/100 WBC Auto (Bl d)Ordered By: Emir Tejada on 08-21-2022 Neutrophils/100 WBC (Bld) 67.2 % . [facility] Nitrite Test strip Ql (U)Ord ered By: Emir Tejada on 08-21-2022 Nitrite Ql (U) Negative Negative [facility] No Panel InformationOrdered By: Emir Tejada on 08-21-2022 Estimated GFR () > 60 mL/Min [facility] Comment on above: GFR estimated refere nce range: According to KDOQI guidelines, <60 ml/min/1.73m2 is sufficient to diagnose a patient with chronic kidney disease. Pharmacy Creatinine Clearance (Chem 77.49 [facility] Nucleated erythrocytes [Pres ence] in Blood by Automated countOrdered By: Emir Tejada on 08-21-2022 Nucleated RBC Auto Ql (Bld) 0.2 /100{WBC} 0-0.5 [facility] Platelet mean volume Auto (B ld) [Entitic vol]Ordered By: Emir Tejada on 08-21-2022 Platelet mean volume (Bld) [Entitic vol] 8.6 fL 6.6-10.1 [facility] Platelets Auto (Bld) [#/Vol] Ordered By: Emir Tejada on 08-21-2022 Platelets (Bld) [#/Vol] 215 10*3/uL 150-450 [facility] Protein Auto test strip (U) [Mass/Vol]Ordered By: Emir Tejada on 08-21-2022 Protein (U) [Mass/Vol] Trace mg/dL Negative [facility] Protein [Mass/volume] in Ser um or PlasmaOrdered By: Emir Tejada on 08-21-2022 Protein [Mass/Vol] 6.8 g/dL 6.1-7.9 [facility] RBC Auto (Bld) [#/Vol]Ordere d By: Emir Tejada on 08-21-2022 RBC (Bld) [#/Vol] 4.48 10*6/uL 3.90-5.60 [facility] Serum or plasma alanine hamilton otransferase measurement without P-5'-P (enzymatic activiOrdered By: Emir Tejada on 08-21-2022 ALT No additional P-5'-P [Catalytic activity/Vol] 39 U/L 10-60 [facility] Serum or plasma albumin/glob ulin mass ratioOrdered By: Emir Tejada on 08-21-2022 Albumin/Globulin [Mass ratio] 1.6 {ratio} [facility] Serum or plasma alkaline cristina sphatase measurement (enzymatic activity/volume)Ordered By: Emir Tejada on 08-21-2022 ALP [Catalytic activity/Vol] 105 U/L 32-92 [facility] Serum or plasma anion gap de terminationOrdered By: Emir Tejada on 08-21-2022 Anion gap [Moles/Vol] 14.6 mmol/L 6.0-15.0 [facility] Serum or plasma aspartate am inotransferase measurement (enzymatic activity/volume)Ordered By: Emir Tejada on 08-21-2022 AST [Catalytic activity/Vol] 20 U/L 10-42 [facility] Serum or plasma calcium alida urement (mass/volume)Ordered By: Emir Tejada on 08-21-2022 Calcium [Mass/Vol] 9.9 mg/dL 8.2-10.2 [facility] Serum or plasma chloride sammie surement (moles/volume)Ordered By: Emir Tejada on 08-21-2022 Chloride [Moles/Vol] 102 mmol/L 95-[address] [facility] Serum or plasma glucose alida urement (mass/volume)Ordered By: Emir Tejada on 08-21-2022 Glucose [Mass/Vol] 159 mg/dL 70-100 [facility] Comment on above: ADA recommended refe rence rangeRandom Glucose Reference Range is dependent on time and content of last meal. Glucose of more than 200 mg/dL in a nonstressed, ambulatory subject supports the diagnosis of Diabetes Mellitus. Serum or plasma potassium me asurement (moles/volume)Ordered By: Emir Tejada on 08-21-2022 Potassium [Moles/Vol] 3.4 mmol/L 3.5-5.1 [facility] Serum or plasma sodium measu rement (moles/volume)Ordered By: Emir Tejada on 08-21-2022 Sodium [Moles/Vol] 138 mmol/L 136-146 [facility] Serum or plasma total biliru bin measurement (mass/volume)Ordered By: Emir Tejada on 08-21-2022 Bilirubin [Mass/Vol] 0.5 mg/dL 0.3-1.[address] [facility] Serum or plasma total carbon dioxide measurement (moles/volume)Ordered By: Emir Tejada on 08-21-2022 CO2 [Moles/Vol] 24.8 mmol/L 22.0-30.0 [facility] Serum or plasma urea nitroge n measurement (mass/volume)Ordered By: Emir Tejada on 08-21-2022 Urea nitrogen [Mass/Vol] 27 mg/dL 9-23 [facility] Specific gravity Auto test s trip (U) [Rel density]Ordered By: Emir Tejada on 08-21-2022 Specific gravity (U) [Rel density] 1.020 1.001-1.030 [facility] Squamous epithelial cells de tection in urine sediment by light microscopyOrdered By: Emir Tejada on 08-21-2022 Epithelial cells.squamous LM Ql (Urine sed) None seen [HPF] 0-2 [facility] Urine bacteria detection by automated methodOrdered By: Emir Tejada on 08-21-2022 Bacteria Auto Ql (U) None seen None Seen [facility] Urine clarity by refractomet ry automatedOrdered By: Emir Tejada on 08-21-2022 Clarity Refractometry automated (U) Clear Clear [facility] Urine glucose measurement by automated test strip (mass/volume)Ordered By: Emir Tejada on 08-21-2022 Glucose Auto test strip (U) [Mass/Vol] Normal mg/dL Normal [facility] Urine hemoglobin detection b y automated test stripOrdered By: Emir Tejada on 08-21-2022 Hemoglobin Auto test strip Ql (U) Negative Negative [facility] Urine leukocyte esterase det ection by automated test stripOrdered By: Emir Tejada on 08-21-2022 Leukocyte esterase Auto test strip Ql (U) Negative Negative [facility] Urobilinogen Auto test strip (U) [Mass/Vol]Ordered By: Emir Tejada on 08-21-2022 Urobilinogen (U) [Mass/Vol] Normal mg/dL Normal [facility] WBC Auto (Bld) [#/Vol]Ordere d By: Emir Tejada on 08-21-2022 WBC (Bld) [#/Vol] 7.2 10*3/uL 4.1-10.5 [facility] pH Auto test strip (U)Ordere d By: Emir Tejada on 08-21-2022 pH (U) 6.5 [pH] 5.0-9.0 [facility] ACETAMINOPHENon 01-28-2022 Acetaminophen [Mass/Vol] ug/mL Critically low 10.0-30.0 [facility] Comment on above: Performed By: #### E TH, ACET, CMP, SALYC #### [facility] [address] [address] [address] Piedad Adan CBC AUTO DIFFon 01-28-2022 BASO # 0.0 103/ul Normal 0.0-0.1 [facility] Comment on above: Performed By: #### C BC #### [facility] [address] [address] [address] Piedad Adan Basophils/100 WBC (Bld) 0.4 % Normal 0.2-2.0 [facility] Comment on above: Performed By: #### C BC #### [facility] [address] [place] [address] Dr. Piedad Adan EO # 0.3 103/ul Normal 0.0-0.7 [facility] Comment on above: Performed By: #### C BC #### [facility] [address] [place] [address] Dr. Piedad Adan Eosinophils/100 WBC (Bld) 4.6 % Normal 0.9-7.0 [facility] Comment on above: Performed By: #### C BC #### [facility] [address] [place] [address] Dr. Piedad Adan Erythrocyte distribution width (RBC) [Ratio] 11.4 % Normal 11.0-15.0 [facility] Comment on above: Performed By: #### C BC #### [facility] [address] [place] [address] Dr. Piedad Adan Hematocrit (Bld) [Volume fraction] 34.9 % Critically low 42.0-54.0 [facility] Comment on above: Performed By: #### C BC #### [facility] [address] [place] [address] Dr. Piedad Adan Hemoglobin (Bld) [Mass/Vol] 13.0 g/dL Critically low 14.0-18.0 [facility] Comment on above: Performed By: #### C BC #### [facility] [address] [place] [address] Dr. Piedad Adan IG # 0.01 10e3/ul Normal 0.00-0.03 [facility] Comment on above: Performed By: #### C BC #### [facility] [address] [place] [address] Dr. Piedad Adan IG % 0.1 % Normal 0.0-0.5 [facility] Comment on above: Performed By: #### C BC #### [facility] [address] [place] [address] Dr. Piedad Adan LYMPH # 2.0 103/ul Normal 1.2-3.8 [facility] Comment on above: Performed By: #### C BC #### [facility] [address] [place] [address] Dr. Piedad Adan Lymphocytes/100 WBC (Bld) 29.7 % Normal 20.5-60.0 [facility] Comment on above: Performed By: #### C BC #### [facility] [address] [place] [address] Dr. Piedad Adan MANUAL DIFF REQ NO Normal [facility] Comment on above: Performed By: #### C BC #### [facility] [address] [place] [address] Dr. Piedad Adan MCH (RBC) [Entitic mass] 34.3 pg Critically high 25.9-34.0 [facility] Comment on above: Performed By: #### C BC #### [facility] [address] [place] [address] Dr. Piedad Adan MCHC (RBC) [Mass/Vol] 37.2 g/dL Critically high 29.9-35.2 [facility] Comment on above: Performed By: #### C BC #### [facility] [address] [place] [address] Dr. Piedad Adan MCV (RBC) [Entitic vol] 92.1 fL Normal 80.0-94.0 [facility] Comment on above: Performed By: #### C BC #### [facility] [address] [place] [address] Dr. Piedad Adan MONO # 0.7 103/ul Normal 0.3-0.8 [facility] Comment on above: Performed By: #### C BC #### [facility] [address] [place] [address] Dr. Piedad Adan Monocytes/100 WBC (Bld) 9.9 % Normal 1.7-12.0 [facility] Comment on above: Performed By: #### C BC #### [facility] [address] [place] [address] Dr. Piedad Adan NEUT # 3.7 103/ul Normal 1.4-6.5 [facility] Comment on above: Performed By: #### C BC #### [facility] [address] [place] [address] Dr. Piedad Adan Neutrophils/100 WBC (Bld) 55.3 % Normal 43.0-75.0 [facility] Comment on above: Performed By: #### C BC #### [facility] [address] [place] [address] Dr. Piedad Adan Platelet mean volume (Bld) [Entitic vol] 9.8 fL Normal 9.5-13.5 [facility] Comment on above: Performed By: #### C BC #### [facility] [address] [place] [address] Dr. Piedad Adan PLT 237 103/ul Normal 150-450 [facility] Comment on above: Performed By: #### C BC #### [facility] [address] [place] [address] Dr. Piedad Adan RBC 3.79 106/ul Critically low 4.70-6.10 [facility] Comment on above: Performed By: #### C BC #### [facility] [address] [place], [place] [id number] Dr. Piedad Adan WBC 6.7 103/ul Normal 4.0-11.0 [facility] Comment on above: Performed By: #### C BC #### [facility] [address] [place], [place] [id number] Dr. Piedad Adan CT HEAD WO CONon [...] DUNG BAILEY Date: 2022-01-28 20:02 Normal [facility]on SARS-CoV-2 (COVID-19) RNA RODOLFO+probe Ql (Unsp spec) Not detected Normal NOT DETECTED [facility] Comment on above: Result Comment: When diagnostic [...] for this test is supported by the Information Systems Director of Health and Human Service's declaration that [...] longer be used). Performed By: #### C VDTB #### [facility] [address] [place] [address] Dr. Piedad Adan DRUG SCREEN RAPID (URINE)on 01-28-2022 AMP Negative Normal NEGATIVE [facility] Comment on above: Performed By: #### D BONG ERUR #### [facility] [address] [place] [address] Dr. Piedad Adan BAR Negative Normal NEGATIVE [facility] Comment on above: Performed By: #### D BONG ERUR #### [facility] [address] [place] [address] Dr. Piedad Adan BUP Negative Normal NEGATIVE [facility] Comment on above: Performed By: #### D RUGSAJAND, ERUR #### [facility] [address] [address] [address] Piedad Adan BZO Negative Normal NEGATIVE [facility] Comment on above: Performed By: #### D RUGRPD, ERUR #### [facility] [address] [address] [address] Piedad Adan KAROLYN Negative Normal NEGATIVE [facility] Comment on above: Performed By: #### D CEASARD, ERUR #### [facility] [address] [address] [address] Piedad Adan CUT-OFFS SEE BELOW Normal [facility] Comment on above: Result Comment: AMP (Amphetamine): 500ng/mL, BAR (Barbituates): 200 ng/mL, BZO (Benzodiazepines): 150 ng/mL, BUP (Buprenorphine): 10 ng/mL, KAROLYN (Cocaine): 150 ng/mL, mAMP (Methamphetamine): 500 ng/mL, MTD (Methadone): 200 ng/mL, OPI (Opiates): 100 ng/mL, OXY (Oxycodone): 100 ng/mL, PCP (Phencyclidine): 25 ng/mL, PPX (Propoxyphene): 300 ng/mL, THC (Cannabinoids): 50 ng/mL, TCA (Trycyclic Antidepressants): 300 ng/mL Performed By: #### D BONG, ERUR #### [facility] [address] [place] [address] Dr. Piedad Adan DRUG CUT HEADER DRUG CLASS TEST SYST EM CUT-OFF CONCENTRATIONS ARE FOLLOWS: Normal [facility] Comment on above: Performed By: #### D CEASARD, ERUR #### [facility] [address] [address] [address] Piedad Adan mAMP Negative Normal NEGATIVE [facility] Comment on above: Performed By: #### D CEASARD, ERUR #### [facility] [address] [address] [address] Piedad Adan MTD Negative Normal NEGATIVE [facility] Comment on above: Performed By: #### D BONG, ERUR #### [facility] [address] [place] [address] Dr. Piedad Adan OPI Negative Normal NEGATIVE [facility] Comment on above: Performed By: #### D BONG, ERUR #### [facility] [address] [address] [address] Piedad Adan OXY Negative Normal NEGATIVE [facility] Comment on above: Performed By: #### D BONG, ERUR #### [facility] [address] [place] [address] Dr. Piedad Adan PCP Negative Normal NEGATIVE [facility] Comment on above: Performed By: #### D BONG, ERUR #### [facility] [address] [place] [address] Dr. Piedad Adan PPX Negative Normal NEGATIVE [facility] Comment on above: Performed By: #### D BONG, ERUR #### [facility] [address] [place] [address] Dr. Piedad Adan TCA Negative Normal NEGATIVE [facility] Comment on above: Performed By: #### D BONG, ERUR #### [facility] [address] [place] [address] Dr. Piedad Adan THC Negative Normal NEGATIVE [facility] Comment on above: Performed By: #### D BONG, ERUR #### [facility] [address] [place] [address] Dr. Piedad Adan ER URINE PROFILEon 2 Bilirubin Ql (U) Negative Normal NEGATIVE [facility] Comment on above: Performed By: #### D BONG, ERUR #### [facility] [address] [place] [address] Dr. Piedad Adan Clarity (U) CLEAR Normal CLEAR [facility] Comment on above: Performed By: #### D BONG, ERUR #### [facility] [address] [place] [address] Dr. Piedad Adan Color (U) LT. YELLOW Normal YELLOW [facility] Comment on above: Performed By: #### D BONG, ERUR #### [facility] [address] [place] [address] Dr. Piedad CARDENAS A micrscopic examina tion will be performed if indicated. Normal [facility] Comment on above: Performed By: #### D CEASARD, ERUR #### [facility] [address] [place] [address] Dr. Piedad Adan Glucose Ql (U) Negative Normal NEGATIVE [facility] Comment on above: Performed By: #### D BONG, ERUR #### [facility] [address] [address] [address] Piedad Adan Hemoglobin Ql (U) Negative Normal NEGATIVE [facility] Comment on above: Performed By: #### D BONG, ERUR #### [facility] [address] [place] [address] Dr. Piedad Adan Ketones Ql (U) Negative Normal NEGATIVE [facility] Comment on above: Performed By: #### D BONG, ERUR #### [facility] [address] [place] [address] Dr. Piedad Adan LEUKOCYTES Negative Normal NEGATIVE [facility] Comment on above: Performed By: #### D BONG, ERUR #### [facility] [address] [place] [address] Dr. Piedad Adan Nitrite Ql (U) Negative Normal NEGATIVE [facility] Comment on above: Performed By: #### D BONG, ERUR #### [facility] [address] [place] [address] Dr. Piedad Adan pH (U) 6.0 [pH] Normal 5-9 [facility] Comment on above: Performed By: #### D BONG, ERUR #### [facility] [address] [place] [address] Dr. Piedad Adan SPEC GRAVITY <=1.005 Abnormal 1.005-<=1.02 5 [facility] Comment on above: Performed By: #### D BONG, ERUR #### [facility] [address] [place] [address] Dr. Piedad Adan UA PROTEIN Negative Normal NEGATIVE/ TRACE [facility] Comment on above: Performed By: #### D BONG, ERUR #### [facility] [address] [place] [address] Dr. Piedad Adan UR MICRO IND NOT INDICATED Normal [facility] Comment on above: Performed By: #### D BONG, ERUR #### [facility] [address] [place] [address] Dr. Piedad Adan Urobilinogen Qn (U) 0.2 {Sharda'U}/dL Normal 0.2 - 1. 0 [facility] Comment on above: Performed By: #### D BONG, ERUR #### [facility] [address] [place] [address] Dr. Piedad Adan ETHANOL (BLD ALC)on 01-29-20 22 ALC NOTE NOTE: 80 mg/dl is th e legal limit for a blood alcohol level Normal [facility] Comment on above: Performed By: #### E TH, ACET, CMP, SALYC #### [facility] [address] [place] [address] Dr. Piedad Adan Ethanol [Mass/Vol] 147 mg/dL Normal [facility] Comment on above: Performed By: #### E TH, ACET, CMP, SALYC #### [facility] [address] [place] [address] Dr. Piedad Adan PROF 14(COMP METB)on 022 Albumin [Mass/Vol] 4.1 g/dL Normal 3.4-5.0 [facility] Comment on above: Performed By: #### E TH, ACET, CMP, SALYC #### [facility] [address] [place] [address] Dr. Piedad Adan Albumin/Globulin [Mass ratio] 1.3 {ratio} Normal [facility] Comment on above: Performed By: #### E TH, ACET, CMP, SALYC #### [facility] [address] [place] [address] Dr. Piedad Adan ALP [Catalytic activity/Vol] 108 U/L Normal 46-116 [facility] Comment on above: Performed By: #### E TH, ACET, CMP, SALYC #### [facility] [address] [address] [address] Piedad Adan ALT [Catalytic activity/Vol] 42 U/L Normal 16-63 [facility] Comment on above: Performed By: #### E TH, ACET, CMP, SALYC #### [facility] [address] [address] [address] Piedad Adan Anion gap [Moles/Vol] 18.1 mmol/L Normal [facility] Comment on above: Performed By: #### E TH, ACET, CMP, SALYC #### [facility] [address] [address] [address] Piedad Adan AST [Catalytic activity/Vol] 22 U/L Normal 15-37 [facility] Comment on above: Performed By: #### E TH, ACET, CMP, SALYC #### [facility] [address] [place] [address] Dr. Piedad Adna Bilirubin [Mass/Vol] 0.5 mg/dL Normal 0.2-1.0 [facility] Comment on above: Performed By: #### E TH, ACET, CMP, SALYC #### [facility] [address] [address] [address] Piedad Adan Calcium [Mass/Vol] 9.5 mg/dL Normal 8.5-10.1 [facility] Comment on above: Performed By: #### E TH, ACET, CMP, SALYC #### [facility] [address] [address] [address] Piedad Adan Chloride [Moles/Vol] 98 mmol/L Normal 98-107 [facility] Comment on above: Performed By: #### E TH, ACET, CMP, SALYC #### [facility] [address] [address] [address] Piedad Adan CO2 [Moles/Vol] 24.0 mmol/L Normal 21.0-32.0 [facility] Comment on above: Performed By: #### E TH, ACET, CMP, SALYC #### [facility] [address] [address] [address] Piedad Adan Creatinine [Mass/Vol] 0.96 mg/dL Normal 0.70-1.30 [facility] Comment on above: Performed By: #### E TH, ACET, CMP, SALYC #### [facility] [address] [place] [address] Dr. Piedad Adan EGFR-AF [place] >60 Normal >=60 [facility] Comment on above: Performed By: #### E TH, ACET, CMP, SALYC #### [facility] [address] [place] [address] Dr. Piedad Adan EGFR-NON AF [place] >60 Normal >=60 [facility] Comment on above: Performed By: #### E TH, ACET, CMP, SALYC #### [facility] [address] [place] [address] Dr. Piedad Adan Globulin (S) [Mass/Vol] 3.1 g/dL Normal [facility] Comment on above: Performed By: #### E TH, ACET, CMP, SALYC #### [facility] [address] [place] [address] Dr. Piedad Adan Glucose [Mass/Vol] 121 mg/dL Critically high 74-106 [facility] Comment on above: Performed By: #### E TH, ACET, CMP, SALYC #### [facility] [address] [place] [address] Dr. Piedad Adan Potassium [Moles/Vol] 3.1 mmol/L Critically low 3.5-5.1 [facility] Comment on above: Performed By: #### E TH, ACET, CMP, SALYC #### [facility] [address] [place] [address] Dr. Piedad Adan Protein [Mass/Vol] 7.2 g/dL Normal 6.4-8.2 [facility] Comment on above: Performed By: #### E TH, ACET, CMP, SALYC #### [facility] [address] [place] [address] Dr. Piedad Adan Sodium [Moles/Vol] 137 mmol/L Normal 136-145 [facility] Comment on above: Performed By: #### E TH, ACET, CMP, SALYC #### [facility] [address] [address] [address] Piedad Adan Urea nitrogen [Mass/Vol] 15.0 mg/dL Normal 7.0-18.0 [facility] Comment on above: Performed By: #### E TH, ACET, CMP, SALYC #### [facility] [address] [address] [address] Piedad Adan Urea nitrogen/Creatinine [Mass ratio] 15.6 mg/mg Normal [facility] Comment on above: Performed By: #### E TH, ACET, CMP, SALYC #### [facility] [address] [address] [address] Piedad Adan PROTIMEon 01-28-2022 INR Coag (PPP) [Relative time] 1.01 {INR} Normal [facility] Comment on above: Performed By: #### P TT, PT ####[facility] [id number] [address]DrTristan Adan INR GUIDELINES SEE BELOW Normal [facility] Comment on above: Result Comment: MICHELE RED INR: 2.0 - 3.0 CONDITIONS NOT LISTED BELOW 2.5 - 3.5 FOR PROSTHETIC HEART VALVE REPLACEMENT 2.5 - 3.5 RECURRENT THROMBOSIS Performed By: #### P TT, PT ####[facility] [address] [address]DrTristan Adan PT Coag (PPP) [Time] 10.9 s Normal 9.0-11.6 [facility] Comment on above: Performed By: #### P TT, PT ####[facility] [address] [address]DrTristan Adan PTTon 01-28-2022 aPTT Coag (Bld) [Time] 26.8 s Normal 22.3-36.2 [facility] Comment on above: Performed By: #### P TT, PT ####[facility] [address] [address]DrTristan Adan SALICYLATEon 01-28-2022 SALICYLATE 4.1 mg/dL Normal <=19.9 [facility] Comment on above: Performed By: #### E TH, ACET, CMP, SALYC #### [facility] [address] [place], [place] [address] Dr. Piedad Adan Q - CB/LUPUS PANEL ACTIN (SMOOTH MUSCLE) ANTIBODY (IGG) <20 Normal [facility] Comment on above: Order Comment: [facility] performed at: [facility] [facility] [facility],, [address] [place] [address], , Manager Risk: Annie Javier MD,PhD,BARBY [facility] Date/Time: [facility] [...] 1. Performed By: #### 7 655, 5042, 34678, 549, 9076F, 54907, 39979I #### [facility] Default [address] [place] [address] CB SCREEN, IFA Negative Normal NEGATIVE [facility] Comment on above: Order Comment: [facility] performed at: [facility] [facility] [facility],, [address] [place], [place], , Manager Risk: Annie Javier MD,PhD,BARBY [facility] Date/Time: [facility] [...] AC-0: Negative International Consensus on CB Patterns https://doi.org/10.1515/dbgy-1200-5205 For additional information, please refer to http://education.Locately/faq/DCJ417 (This link is being provided for information/educational purposes only.) Performed By: #### 7 655, 5042, 69067, 549, 9076F, 69788, 05185U #### [facility] Default [address] [place] [address] COMPLEMENT COMPONENT C3C 144 mg/dL Normal 82-185 [facility] Comment on above: Order Comment: [facility] performed at: [facility] [facility] [facility],, [address] [place] [address], , Manager Risk: Annie Javier MD,PhD,BARBY [facility] Date/Time: [facility] Results Received Date/Time: [facility] Reported Date/Time: Performed By: #### 7 655, 5042, 02771, 549, 9076F, 89131, 34779J #### [facility] [address] [place] [address] COMPLEMENT COMPONENT C4C 31 mg/dL Normal 15-53 [facility] Comment on above: Order Comment: [facility] performed at: [facility] [facility] [facility],, [address] [place], [place], , Manager Risk: Annie Javier MD,PhD,BARBY [facility] Date/Time: [facility] Results Received Date/Time: [facility] Reported Date/Time: Performed By: #### 7 655, 5042, 81121, 549, 9076F, 49465, 33595F #### [facility] Default [address] [place] [address] DNA AB (DS) CRITHIDIA,IFA Negative Normal NEGATIVE [facility] Comment on above: Order Comment: [facility] performed at: [facility] [facility] [facility],, [address] [place], [place], , Manager Risk: Annie Javier MD,PhD,BARBY [facility] Date/Time: [facility] Results Received Date/Time: [facility] Reported Date/Time: Performed By: #### 7 655, 4262, 63811, 549, 9076F, 50104, 44437Q #### [facility] Default [address] [place] [address] GASTRIC PARIETAL CELL AB 113.8 U High [facility] Comment on above: Order Comment: [facility] performed at: [facility] [facility] [facility],, [address] [place], [place], , Manager Risk: Annie Javier MD,PhD,BARBY [facility] Date/Time: [facility] [...] of these patients. Performed By: #### 7 910, 1362, 59740, 549, 9076F, 65971, 90099Z #### [facility] [address] [place] [address] MITOCHONDRIAL AB SCREEN Negative Normal NEGATIVE [facility] Comment on above: Order Comment: [facility] performed at: [employer] [employer] [facility] [facility],, [address] [place] [address], , Manager Risk: Annie Javier MD,PhD,BARBY [facility] Date/Time: [facility] Results Received Date/Time: [facility] Reported Date/Time: Result Comment: John t cytoplasmic staining is observed in the parietal cells only. Consider requesting order code [id number], Parietal Cell Antibody, MAYKEL, for confirmation if clinically indicated. Performed By: #### 7 655, 5042, 45741, 549, 9076F, 83869, 28300U #### [facility] Default [address] [place] [address] MYOCARDIAL AB, IF Negative Normal NEGATIVE [facility] Comment on above: Order Comment: [facility] performed at: [employer] [facility] [facility],, [address] [place] [address], , Manager Risk: Annie Javier MD,PhD,BARBY [facility] Date/Time: [facility] Results Received Date/Time: [facility] Reported Date/Time: Result Comment: This test was developed and its analytical performance characteristics have been determined by [facility]. It has not been cleared or approved by FDA. This assay has been validated pursuant to the CLIA regulations and is used for clinical purposes. Performed By: #### 7 655, 5042, 00749, 549, 9076F, 15759, 50659Q #### [facility] Default [address] [place] [address] RETICULIN IGA SCREEN Negative Normal NEGATIVE [facility] Comment on above: Order Comment: [facility] performed at: [facility],, [address] [place] [address], , Manager Risk: Annie Javier MD,PhD,BARBY [facility] Date/Time: [facility] Results Received Date/Time: [facility] Reported Date/Time: Performed By: #### 7 655, 5042, 34308, 549, 9076F, 14683, 92641I #### [facility] Default [address] [place] [address] RF <14 Normal <14 [facility] Special[facility] Comment on above: Order Comment: [facility] performed at: [facility],, [address] [place] [address], , Manager Risk: Annie Javier MD,PhD,BARBY [facility] Date/Time: [facility] Results Received Date/Time: [facility] Reported Date/Time: Performed By: #### 7 655, 5042, 89734, 549, 9076F, 04461, 66290A #### [facility] Default [address] [place] [address] RIBOSOMAL P ANTIBODY <1.0 NEG Normal <1.0 NEGATIVE [facility] Specialist Comment on above: Order Comment: [facility] performed at: [facility], [facility],, [address] [place] [address], , Manager Risk: Annie Javier MD,PhD,BARBY [facility] Date/Time: [facility] Results Received Date/Time: [facility] Reported Date/Time: Performed By: #### 7 655, 5042, 66205, 549, 9076F, 27378, 19828Q #### [facility] Default [address] [place] [address] SCL-70 ANTIBODY <1.0 NEG Normal <1.0 NEGATIVE [employer] [facility] Comment on above: Order Comment: [facility] performed at: [facility], [employer] [facility] [facility],, [address] [place], [place], , Manager Risk: Annie Javier MD,PhD,BARBY [facility] Date/Time: [facility] Results Received Date/Time: [facility] Reported Date/Time: Performed By: #### 7 655, 5042, 59817, 549, 9076F, 40935, 68204N #### [facility] Default [address] [place] [address] SJOGREN'S ANTIBODY (SS-A) <1.0 NEG Normal <1.0 NEGATIVE [facility] Comment on above: Order Comment: [facility] performed at: [facility], [employer] [facility] [facility],, [address] [place], [place], , Manager Risk: Annie Javier MD,PhD,BARBY [facility] Date/Time: [facility] Results Received Date/Time: [facility] Reported Date/Time: Performed By: #### 7 655, 5282, 09309, 549, 9076F, 79244, 64797O #### [facility] Default [address] [place] [address] SJOGREN'S ANTIBODY (SS-B) <1.0 NEG Normal <1.0 NEGATIVE [facility] Comment on above: Order Comment: [facility] Testing performed at: [facility], [employer] [facility],, [address] [place], [place], , Manager Risk: Annie Javier MD,PhD,BARBY [facility] Collection Date/Time: [facility] Results Received Date/Time: [facility] Reported Date/Time: Performed By: #### 7 655, 5042, 96235, 549, 9076F, 73132, 01229Q #### [facility] Default [address] [place] [address] SM ANTIBODY <1.0 NEG Normal <1.0 NEGATIVE [facility] Comment on above: Order Comment: [facility] Testing performed at: [facility], [employer] [facility],, [address] [place] [address], , Manager Risk: Annie Javier MD,PhD,BARBY [facility] Collection Date/Time: [facility] Results Received Date/Time: [facility] Reported Date/Time: Performed By: #### 7 655, 5042, 83617, 549, 9076F, 94733, 25930C #### [facility] Default [address] [place] [address] SM/EDITOR PRODUCER ANTIBODY <1.0 NEG Normal <1.0 NEGATIVE [facility] Comment on above: Order Comment: [facility] Testing performed at: [employer], [employer] [facility],, [address] [place] [address], , Manager Risk: Annie Javier MD,PhD,BARBY [facility] Collection Date/Time: [facility] Results Received Date/Time: [facility] Reported Date/Time: Performed By: #### 7 655, 5042, 49001, 549, 9076F, 59407, 50492X #### [facility] Default [address] [place] [address] STRIATED MUSCLE AB SCREEN Negative Normal NEGATIVE [facility] Comment on above: Order Comment: [facility] Testing performed at: [employer], [employer] [facility],, [address] [place] [address], , Manager Risk: Annie Javier MD,PhD,BARBY [facility] Collection Date/Time: [facility] Results Received Date/Time: [facility] Reported Date/Time: Result Comment: This test was developed and its analytical performance characteristics have been determined by [facility]. It has not been cleared or approved by FDA. This assay has been validated pursuant to the CLIA regulations and is used for clinical purposes. Performed By: #### 7 655, 5042, 34194, 549, 9076F, 99568, 79399X #### [facility] Default [address] [place] [address] THYROID PEROXIDASE ANTIBODIES 1 IU/mL Normal <9 [facility] Comment on above: Order Comment: [facility] Testing performed at: , [employer],, [address] [place], [address], Manager Risk: Annie Javier MD,PhD,BARBY [facility] Collection Date/Time: [facility] Results Received Date/Time: [facility] Reported Date/Time: Performed By: #### 7 655, 5042, 24718, 549, 9076F, 41836, 39246E #### [facility] Default [address] [place] [address] Q - HEAVY METALS PANEL,BLOOD on 10-29-2021 ARSENIC, BLOOD <3 Normal <23 [facility] Comment on above: Order Comment: [facility] Testing performed at: [facility], [employer], [address], [place], [place], , Manager Risk: Alphonso Lu M.D.,PhD [facility] Collection Date/Time: [facility] [...] analytical performance characteristics have been determined by [employer] [place], [place]. It has not been cleared or approved by the U.S. Food and Drug Administration. This assay has been validated pursuant to the CLIA regulations and is used for clinical purposes. Performed By: #### 7 655, 5042, 03604, 549, 9076F, 01474, 97709M #### [facility] Default [address] [place] [address] LEAD, BLOOD <1 Normal <5 [facility] Comment on above: Order Comment: [facility] Testing performed at: [employer], [address], [place], [place], , Manager Risk: Alphonso Lu M.D.,PhD [facility] Collection Date/Time: [facility] Results Received Date/Time: [facility] Reported Date/Time: Result Comment: Anal ysis was performed by Inductively Coupled Plasma Mass Spectrometry (ICPMS) This test was developed and its analytical performance characteristics have been determined by [employer] [place], [place]. It has not been cleared or approved by the U.S. Food and Drug Administration. This assay has been validated pursuant to the CLIA regulations and is used for clinical purposes. Performed By: #### 7 655, 5042, 50738, 549, 9076F, 06993, 80258K #### [facility] Default [address] [place] [address] MERCURY, BLOOD <4 Normal <=10 [facility] Comment on above: Order Comment: [facility] Testing performed at: [employer], [address], [place], [place], , Manager Risk: Alphonso Lu M.D.,PhD [facility] Collection Date/Time: [facility] Results Received Date/Time: [facility] Reported Date/Time: Result Comment: This test was developed and its analytical performance characteristics have been determined by [employer] [place], [place]. It has not been cleared or approved by the U.S. Food and Drug Administration. This assay has been validated pursuant to the CLIA regulations and is used for clinical purposes. Performed By: #### 7 655, 5042, 20034, 549, 9076F, 63777, 04774S #### [facility] Default [address] [place] [address] Q - HOMOCYSTEINEon 2 HOMOCYSTEINE 13.4 umol/L High <11.4 [facility] Comment on above: Order Comment: [facility] Testing performed at: [employer], [employer], [address] [facility], [address] [place] [address], [address], Manager Risk: Lg Segura MD [facility] Collection Date/Time: [facility] Results Received Date/Time: [facility] Reported Date/Time: Result Comment: Homo cysteine is increased by functional deficiency of folate or vitamin B12. Testing for methylmalonic acid differentiates between these deficiencies. Other causes of increased homocysteine include renal failure, folate antagonists such as methotrexate and phenytoin, and exposure to nitrous oxide. Melia Soriano, et al., Anastasi[employer] Quality Technician Med. 1999;131(5):331-9. Performed By: #### 7 655, 5042, 42092, 549, 9076F, 48810, 57485M #### [facility] Default [address] [place] [address] Q - LYME DISEASE AB (IGG,IGM )on 10-29-2021 18 KD (IGG) BAND Non-Reactive Normal [facility] Comment on above: Order Comment: [facility] Testing performed at: [employer], [employer] [facility], [address] , [address] [place] [address], [address], Manager Risk: Lg Segura MD [facility] Collection Date/Time: [facility] Results Received Date/Time: [facility] Reported Date/Time: Performed By: #### 7 655, 5042, 48782, 549, 9076F, 46786, 12505Z #### [facility] Default [address] [place] [address] 23 KD (IGG) BAND Non-Reactive Normal [facility] Security System Administrator Comment on above: Order Comment: [facility] Testing performed at: [employer], [employer] [facility], [address] , [address] [place] [address], [address] [place] [address], Manager Risk: Lg Segura MD [facility] Collection Date/Time: [facility] Results Received Date/Time: [facility] Reported Date/Time: Performed By: #### 7 655, 5042, 76068, 549, 9076F, 83263, 03637G #### [facility] Default [address] [place] [address] 23 KD (IGM) BAND Non-Reactive Normal [facility] [place] [facility] System Administrator Comment on above: Order Comment: [facility] Testing performed at: [employer], [employer] [facility], [address] [facility], [address] [place] [address], [address] [place] [address], Manager Risk: Lg Segura MD [facility] Collection Date/Time: [facility] Results Received Date/Time: [facility] Reported Date/Time: Performed By: #### 7 655, 5042, 84216, 549, 9076F, 68084, 82514P #### [facility] Default [address] [place] [address] 28 KD (IGG) BAND Non-Reactive Normal [facility] [place] [facility] Administrator Comment on above: Order Comment: [facility] performed at: [employer], [employer] [facility], [address] [place] [address], [address] [place] [address], [address] [place] [address], Manager Risk: Lg Segura MD [facility] Collection Date/Time: [facility] Results Received Date/Time: [facility] Reported Date/Time: Performed By: #### 7 655, 5042, 43017, 549, 9076F, 40150, 64213V #### [facility] Default [address] [place] [address] 30 KD (IGG) BAND Non-Reactive Normal [facility] [place] [facility] Administrator Comment on above: Order Comment: [facility] Testing performed at: [employer], [employer], [address] [facility], [address] [place] [address], [address] [place] [address], Manager Risk: Lg Segura MD [facility] Collection Date/Time: [facility] Results Received Date/Time: [facility] Reported Date/Time: Performed By: #### 7 655, 5042, 25539, 549, 9076F, 71511, 46161S #### [facility] Default [address] [place] [address] 39 KD (IGG) BAND Non-Reactive Normal [facility] [place] [facility] Administrator Comment on above: Order Comment: [facility] Testing performed at: [facility], [employer], [address] [place] [address], [address] [place] [address], [address] [place] [address], Manager Risk: Lg Segura MD [facility] Collection Date/Time: [facility] Results Received Date/Time: [facility] Reported Date/Time: Performed By: #### 7 655, 5042, 40367, 549, 9076F, 90512, 88825N #### [facility] Default [address] [place] [address] 39 KD (IGM) BAND Non-Reactive Normal [facility] [place] [facility] Administrator Comment on above: Order Comment: [facility] Testing performed at: [employer], [employer] [facility], [address] [facility], [address] [place] [address], [address] [place] [address], Manager Risk: Lg Segura MD [facility] Collection Date/Time: [facility] Results Received Date/Time: [facility] Reported Date/Time: Performed By: #### 7 655, 5042, 91031, 549, 9076F, 96804, 77361O #### [facility] Default [address] [place] [address] 41 KD (IGG) BAND Non-Reactive Normal [facility] [place] [facility] Administrator Comment on above: Order Comment: [facility] Testing performed at: [employer], [employer], [address] [facility], [address] [place] [address], [address] [place] [address], Manager Risk: Lg Segura MD [facility] Collection Date/Time: [facility] Results Received Date/Time: [facility] Reported Date/Time: Performed By: #### 7 655, 5042, 58262, 549, 9076F, 15686, 34837M #### [facility] Default [address] [place] [address] 41 KD (IGM) BAND Non-Reactive Normal [facility] [place] [facility] Administrator Comment on above: Order Comment: [facility] Testing performed at: [employer], [employer], [address] , [address] [place] [address], , Manager Risk: Lg Segura MD [facility] Collection Date/Time: [facility] [...] assay. Performed By: #### 7 655, 5042, 82436, 549, 9076F, 31404, 73330I #### [facility] Default [address] [place] [address] 45 KD (IGG) BAND Non-Reactive Normal [facility] [place] [facility] Administrator Comment on above: Order Comment: [facility] Testing performed at: [employer], [employer], [address] , [address] [place], [address], Manager Risk: Lg Segura MD [facility] Collection Date/Time: [facility] Results Received Date/Time: [facility] Reported Date/Time: Performed By: #### 7 655, 5042, 64177, 549, 9076F, 94309, 53391S #### [facility] Default [address] [place] [address] 58 KD (IGG) BAND Non-Reactive Normal [facility] [facility] [place] [facility] Administrator Comment on above: Order Comment: [facility] Testing performed at: [employer], [employer], [address] [facility], [address] [place] [address], [address] [place] [address], Manager Risk: Lg Segura MD [facility] Collection Date/Time: [facility] Results Received Date/Time: [facility] Reported Date/Time: Performed By: #### 7 655, 5042, 39252, 549, 9076F, 79683, 53231M #### [facility] Default [address] [place] [address] 66 KD (IGG) BAND Non-Reactive Normal [facility] [facility] [place] [facility] Administrator Comment on above: Order Comment: [facility] Testing performed at: [facility], [address] [place] [address], [address] [place] [address], [address] [place] [address], Manager Risk: Lg Segura MD [facility] Collection Date/Time: [facility] Results Received Date/Time: [facility] Reported Date/Time: Performed By: #### 7 655, 5042, 13527, 549, 9076F, 43836, 12049K #### [facility] Default [address] [place] [address] 93 KD (IGG) BAND Non-Reactive Normal [facility] [facility] [place] [facility] Administrator Comment on above: Order Comment: [facility] Testing performed at: [facility], [address] , [address] [place] [address], [address] [place] [address], Manager Risk: Lg Segura MD [facility] Collection Date/Time: [facility] Results Received Date/Time: [facility] Reported Date/Time: Performed By: #### 7 655, 5042, 98154, 549, 9076F, 49344, 23975U #### [facility] Default [address] [place] [address] LYME DISEASE AB(IGG),BLOT Negative Normal NEGATIVE [facility] Specialist Comment on above: Order Comment: [facility] Testing performed at: [employer], [employer], [address] , [address] [place] [address], [address] [place] [address], Manager Risk: Lg Segura MD [facility] Collection Date/Time: [facility] Results Received Date/Time: [facility] Reported Date/Time: Performed By: #### 7 655, 5042, 40042, 549, 9076F, 63806, 35034I #### [facility] Default [address] [place] [address] LYME DISEASE AB(IGM),BLOT Negative Normal NEGATIVE [facility] Specialist Comment on above: Order Comment: [facility] Testing performed at: [employer], [employer], [address] , [address] [place] [address], [address] [place] [address], Manager Risk: Lg Segura MD [facility] Collection Date/Time: [facility] Results Received Date/Time: [facility] Reported Date/Time: Performed By: #### 7 655, 5042, 54591, 549, 9076F, 70183, 98153L #### [facility] Default [address] [place] [address] Q - PROTEIN ELECTROPHORESIS, WITH TOTAL PROTEIN AND RFX TO IFon 10-29-2021 ABNORMAL PROTEIN BAND 1 SEE NOTE Normal NONE DETECTED [facility] Security System Administrator Comment on above: Order Comment: [facility] Testing performed at: [facility], [address] , [address] [place] [address], [address] [place] [address], Manager Risk: Lg Segura MD [facility] Collection Date/Time: [facility] Results Received Date/Time: [facility] Reported Date/Time: Result Comment: See below Performed By: #### 7 655, 5042, 61424, 549, 9076F, 57839, 88029A #### [facility] Default [address] [place] [address] Albumin [Mass/Vol] 3.8 g/dL Normal 3.8-4.8 [facility] Comment on above: Order Comment: [facility] Testing performed at: [employer], [employer], [address] [place] [address], [address] [place] [address], [address] [place] [address], Manager Risk: Lg Segura MD [facility] Collection Date/Time: [facility] Results Received Date/Time: [facility] Reported Date/Time: Performed By: #### 7 655, 5042, 55189, 549, 9076F, 31324, 12805H #### [facility] Default [address] [place] [address] ALPHA 1 GLOBULIN 0.3 g/dL Normal 0.2-0.3 [facility] Specialist Comment on above: Order Comment: [facility] Testing performed at: [employer], [facility], [address] [place] [address], [address] [place] [address], [address] [place] [address], Manager Risk: Lg Segura MD [facility] Collection Date/Time: [facility] Results Received Date/Time: [facility] Reported Date/Time: Performed By: #### 7 655, 5042, 07632, 549, 9076F, 47050, 04273Y #### [facility] Default [address] [place] [address] ALPHA 2 GLOBULIN 0.7 g/dL Normal 0.5-0.9 [facility] Specialist Comment on above: Order Comment: [facility] Testing performed at: [employer], [employer], [address] [place] [address], [address] [place] [address], [address] [place] [address], Manager Risk: Lg Segura MD [facility] Collection Date/Time: [facility] Results Received Date/Time: [facility] Reported Date/Time: Performed By: #### 7 655, 5042, 74006, 549, 9076F, 43328, 41229N #### [facility] Default [address] [place] [address] BETA 1 GLOBULIN 0.4 g/dL Normal 0.4-0.6 [facility] Security System Administrator Comment on above: Order Comment: [facility] Testing performed at: [employer], [facility], [address] [place] [address], [address] [place] [address], [address] [place] [address], Manager Risk: Lg Segura MD [facility] Collection Date/Time: [facility] Results Received Date/Time: [facility] Reported Date/Time: Performed By: #### 7 655, 5042, 61555, 549, 9076F, 46681, 30676L #### [facility] Default [address] [place] [address] BETA 2 GLOBULIN 0.4 g/dL Normal 0.2-0.5 [facility] Security System Administrator Comment on above: Order Comment: [facility] Testing performed at: [employer], [facility], [address] [place] [address], [address] [place] [address], [address] [place] [address], Manager Risk: Lg Segura MD [facility] Collection Date/Time: [facility] Results Received Date/Time: [facility] Reported Date/Time: Performed By: #### 7 655, 5042, 03586, 549, 9076F, 75442, 39741E #### [facility] Default [address] [place] [address] GAMMA GLOBULIN 0.5 g/dL Low 0.8-1.7 [facility] Security System Administrator Comment on above: Order Comment: [facility] Testing performed at: [employer], [facility], [address] [place] [address], [address] [place] [address], [address] [place] [address], Manager Risk: Lg Segura MD [facility] Collection Date/Time: [facility] Results Received Date/Time: [facility] Reported Date/Time: Performed By: #### 7 655, 5042, 56209, 549, 9076F, 80837, 16085A #### [facility] Default [address] [place] [address] INTERPRETATION SEE NOTE Normal [facility] Security System Administrator Comment on above: Order Comment: [facility] performed at: [employer], [facility], [address] , [address] [place] [address], [address] [place] [address], Manager Risk: Lg Segura MD [facility] Collection Date/Time: [facility] [...] considered. Performed By: #### 7 655, 5042, 41404, 549, 9076F, 46343, 73743G #### [facility] Default [address] [place] [address] Result Comment: A fa int band in IgG Yoe cannot be ruled out from the serum immunofixation electrophoresis pattern. Consider repeat of serum and/or urine immunofixation electrophoresis if clinically indicated. Protein [Mass/Vol] 6.0 g/dL Low 6.1-8.1 [facility] Administrator Comment on above: Order Comment: [facility] Testing performed at: [employer], [facility], [address] , [address] [place], [place], [address] [place] [address], Manager Risk: Lg Segura MD [facility] Collection Date/Time: [facility] Results Received Date/Time: [facility] Reported Date/Time: Performed By: #### 7 655, 5042, 50548, 549, 9076F, 37433, 35319R #### [facility] Default [address] [place] [address] Q - VITAMIN B1 (THIAMINE),BL OODon 10-29-2021 VITAMIN B1 (THIAMINE), BLOOD, LC/MS/MS 150 nmol/L Normal 78-185 [facility] Security System Administrator Comment on above: Order Comment: [facility] Testing performed at: [facility], [employer], [address], [place], [place], , Manager Risk: Alphonso Lu M.D.,PhD [facility] Date/Time: [id number] [facility] Results Received Date/Time: [facility] Reported Date/Time: Result Comment: Millicent min supplementation within 24 hours prior to blood draw may affect the accuracy of the results. This test was developed and its analytical performance characteristics have been determined by [employer] [place], [place]. It has not been cleared or approved by the U.S. Food and Drug Administration. This assay has been validated pursuant to the CLIA regulations and is used for clinical purposes. Performed By: #### 7 655, 5042, 46896, 549, 9076F, 21058, 56653C #### [facility] Default [address] [place] [address] TSHon 10-29-2021 TSH 0.846 uIU/mL Normal 0.400-4.500 [facility] Specialist Comment on above: Performed By: #### T SH, VITD #### [facility] [address] [place], [place] [id number] Vitamin B12/Folateon 022 Cobalamin (Vitamin B12) [Mass/Vol] 275 pg/mL Normal 211-946 [facility] Specialist Comment on above: Performed By: #### 7 655, 5042, 70019, 549, 9076F, 72076, 99399F #### [facility] Default [address] [place] [address] FOL 16.9 ng/mL Normal >4.7 [facility] Specialist Comment on above: Result Comment: Refe rence range change 06/16/2017. Prior reference range F 4.8-37.3 ng/mL, M 4.5-32.2 ng/mL. Performed By: #### 7 655, 5042, 87809, 549, 9076F, 83665, 43207Z #### [facility] Default [address] [facility] [place] [address] Vitamin D 25-OHon 10-29-2021 VIT D 25 OH 50 ng/ml Normal >29 [facility] Security System Administrator Comment on above: Result Comment: Millicent min D Status Deficiency <20 ng/mL Insufficiency 20-29 ng/mL Optimal 30-100 ng/mL Possible Toxicity >=150 ng/mL Performed By: #### 7 655, 5042, 13046, 549, 9076F, 25376, 51628W #### [facility] Default [address] [facility] [place] [address] XR Spine Lumbar 4+ Views*on 09-08-2021 XR [...] by Freedom Amin on 09/08/2021 1528 Normal [facility] Security System Administrator Kannan 08-04-2021 [facility] Telephone (BEE) ----- FREEDOM RODGERS ([id number]) 1960 M Date Time Provider Department 08/04/21 ROXANA DOWNING During your visit today, we recorded the following information about you: Kyle Patterson 08/04/2021 9:22 AM Signed Received outside records from [facility] admission of 08-02-2021 - Saved to EP Outside Record Last OV in this dept 05/26/2021 Kyle Shepherd Allergies As of Date: 08/04/2021 Noted Allergy Reaction IODINATED CONTRAST MEDIA 09/08/2004 4 - Hives Date Reviewed: 05/26/2021 Reviewed by: Connor Morton APRN.TENDER LABOR - Fully Assessed Reason for Visit: Received Outside Medical Records [[id number]] Prescriptions as of 08/04/2021 - metoprolol succinate [...] Encounter Status:Closed by KYLE DAY on 08/04/21 [facility] 08-03-2021 JOSEPH Telephone (BEE) ----- FREEDOM RODGERS ([id number]) 1960 M Date Time Provider Department 08/03/21 ROXANA DOWNING During your visit today, we recorded the following information about you: [place] [facility] [place]/03/2021 4:21 PM Signed August 03, 2021 4:16 PM Patient Name: Freedom Rodgers [id number] Contact Information: [phone] (home) [phone] (cell) Last visit with EP Provider: 05/26/2021 Reason for Call: Patient tested positive for Covid on 08/01/2021 (was previously tested on 07/30/2021 by employer and was negative). His loop recorder implant was cancelled. He was admitted at [facility] on 08/01/2021 and was discharged on 08/02/2021. Records will be requested STAT Intermittent stabbing Pain was in the mid-back area and has moved to the right shoulder, back and chest areas shooting down right arm, some swelling in the right hand and is colder than his left hand. Physician: Roxana Downing MD Thank you, [place] [facility] The [place] was informed that our caregivers [...] Date Reviewed: 05/26/2021 Reviewed by: Connor Morton APRN.TENDER LABOR - Fully Assessed Reason for Visit: Patient [...] Encounter Status:Closed by ROXANA DOWNING [facility]03[facility]21 [facility] ----- FREEDOM RODGERS ([id number]) 1960 M Date Time Provider Department 08/01/[address] [facility] During your visit today, we recorded the following information about you: Yoko Izquierdo APRN.CNP 08/01/2021 9:53 AM Signed [facility] Center Inbound Phone Encounter DATE of SERVICE: 08/01/2021 TIME of SERVICE: 9:44 AM Status: Urgent Service/Provider: EP/EPS Roxana Arenas M.D. Reason for call: Chest pain/angina Contact information: Dr. Carreno Resolution: sent to inbox and transfer to [facility] main Comments: received a call from Dr. Carreno of [facility] ED. Reports patient started to have [...] tomorrow by Dr. Arenas. Discussed with EP inspector balance wheel motion Dr. Ramos. Advised to transfer to the [facility] for work up prior to elective procedure. [facility] transfer center number provided to Dr. Carreno's team. Yoko Izquierdo APRN.CNP Date of Resolution: 08/01/2021 Time of Resolution 9:44 AM Allergies As of Date: 08/01/2021 Noted Allergy Reaction IODINATED CONTRAST MEDIA 09/08/2004 4 - Hives Date Reviewed: 05/26/2021 Reviewed by: Connor Morton APRN.TENDER LABOR - Fully Assessed Reason for Visit: Chest [...] Status:Closed by YOKO IZQUIERDO on 08/01/21 Normal [facility] CNCOon 07-20-2021 CNCO Letter Text Letter Text Normal [facility] CNPNon 07-19-2021 [facility] (EPSMN[facility] ----- FREEDOM RODGERS ([id number]) 1960 M Date Time Provider Department 07/19/21 ROXANA DOWNING [facility] During your visit today, we recorded the following information about you: Steff Small 07/19/2021 1:42 PM Signed ----- Message from Roxana Downing MD sent at 07/13/2021 3:07 PM EST ----- Patient: Freedom Rodgers EP Lab Procedure requested: Other Procedures Loop Implant CPT 60324 - [facility] Anticoagulation Status: Not anticoagulated Requesting Physician: Roxana Downing MD Procedural Physician: Roxana Downing MD Date of last HANDP or Date of upcoming HANDP: see epic Indications for procedure: other palpitations, near syncope [...] APRN.CNP - Fully Assessed Reason for Visit: Future [...] Encounter Status:Closed by STEFF SMALL on 07/19/21 [facility] CNOVon 05-26-2021 CNOV Office Visit (CARDMN ) ----- FREEDOM RODGERS ([id number]) 1960 M Date Time Provider Department 05/26/21 1:00 PM CONNOR MORTON During your visit today, we recorded the following information about you: Pulse Blood pressure Weight Height 71/minute 118/68 79.4 kg 1.854 m Connor Morton APRN.CNP 05/26/2021 1:33 PM Signed [facility] [place] Melissa Medina Department of Cardiovascular Medicine SECTION OF CARDIAC PACING and ELECTROPHYSIOLOGY OUTPATIENT VISIT DATE May 26, 2021 OUTPATIENT VISIT TYPE ESTABLISHED PRIMARY CARE PHYSICIAN: Archie Hooks MD [address] [place] [address] REFERRING PHYSICIAN: Roxana Downing [address] [facility] [address] CHIEF COMPLAINT: F/u syncope s/p AVNRT ablation [...] (RVEF 55%). 4. No significant valvular abnormalities. Irrigation Equipment Mechanic: ANITHA Transcribe Date/Time: Mar 25 2021 3:28P Dictated by : ALLIE WOOD MD This examination was interpreted and the report reviewed and electronically signed by: DENG OCASIO MD on Aug 26 2021 5:06PM EST Complete R (more content not included)... Normal [facility] Kannan 05-17-2021 CNPN Telephone (CARDMN) ----- FREEDOM RODGERS ([id number]) 1960 M Date Time Provider Department 05/17/21 ROXANA DOWNING During your visit today, we recorded the following information about you: June Lana [facility] 05/17/2021 3:05 PM Signed May 17, 2021 Patient Contact Number: [phone] (home) [phone] (cell) Patient last seen within the last year: Yes Reason For Call: Other Issue: Short term disability forms received for completion Scanned into [employer] for retrieval and completion Thank you. June [id number] Jonny Cameron RN 05/20/2021 3:46 PM Signed Completed form faxed, copy given to receptionist secretary to upload. Jonny Cameron RN Allergies As [...] Status:Closed by JONNY CAMERON RN on 05/20/21 [facility] C[facility] Telephone (CARDMN) ----- FREEDOM RODGERS ([id number]) 1960 M Date Time Provider Department 04/06/21 ROXANA DOWNING During your visit today, we recorded the following information about you: [place] [facility] 04/06/2021 8:38 AM Signed April 06, 2021 8:37 AM Patient Name: Freedom Rodgers [id number] Contact Information: [phone] (home) [phone] (cell) Last visit with EP Provider: 03/04/2021 Reason for Call: Patient needs return to work letter - same put into patient's My Chart for easy access. Physician: Roxana Downing MD Thank you, [place] [facility] The patient was informed that our caregivers are afforded 72 business hours to review and respond telephone messages. Jonny Cameron RN 04/30/2021 1:11 PM Signed Completed temporary disability form, copy given to receptionist secretary to send and upload. Jonny Cameron RN Allergies As of Date: 04/06/2021 Noted Allergy Reaction IODINATED CONTRAST MEDIA 09/08/2004 4 - Hives Date Reviewed: 03/31/2021 Reviewed by: Heidi Rueda RN - Fully Assessed Reason for Visit: Return To Work Letter [[id number]] Prescriptions as of 04/30/2021 - losartan-hydroCHLOROthiaz renetta [...] Encounter Status:Closed by KYLE DAY on 04/06/21 [facility] ANES Eleanor 03-30-2021 ANES POST HNO ID: [id number] Author: Jeff Sanon MD Service: Anesthesiology Author Type: Anesthesiologist Type: Anesthesia PostOp Filed: 03/30/2021 3:45 PM Note Text: POST ANESTHESIA EVALUATION NOTE SERVICE DATE: 03/30/2021 SERVICE TIME: 15:05 : 1960 Vitals: 03/30/21 1426 Temp: 36 ?C (96.8 ?F) 03/30/21 1430 03/30/21 1445 03/30/21 1500 03/30/21 1515 BP: 97/54 93/51 101/55 109/59 08/31/21 1430 03/30/21 1445 03/30/21 1500 03/30/21 1515 [...] 30, 2021 TIME: 3:43 PM PAGER/CONTACT #: [phone] Normal [facility] Basic Metabolic Panlon 03-30 Anion gap [Moles/Vol] 9 mmol/L Normal 9-18 [facility] Comment on above: Performed By: #### C YASMINE, BMP ####[facility] [place], [place] [phone] Calcium [Mass/Vol] 9.3 mg/dL Normal 8.5-10.2 [facility] Comment on above: Performed By: #### C YASMINE, BMP ####[facility] [place], [place] [phone] Chloride [Moles/Vol] 104 mmol/L Normal 97-105 [facility] Comment on above: Performed By: #### C YASMINE, BMP ####[facility] [place], [place] [phone] CO2 [Moles/Vol] 26 mmol/L Normal 22-30 [facility] Comment on above: Performed By: #### C BC, BMP ####[facility] [address] [place], [place] [phone] Creatinine [Mass/Vol] 0.83 mg/dL Normal 0.73-1.22 [facility] Comment on above: Performed By: #### C YASMINE, BMP ####[facility] [place], [place] [phone] eGFR- Amer. >60 Normal [facility] Comment on above: Performed By: #### C YASMINE, BMP ####[facility] [place], [place] [phone] eGFR-All Other Races >60 Normal [facility] Comment on above: Result Comment: eGFR [...] GFR. Performed By: #### C YASMINE, BMP ####[facility] [place], [place] [phone] Glucose [Mass/Vol] 109 mg/dL High 74-99 [facility] Comment on above: Result Comment: The [place] Diabetes Association (ADA) provides guidance for cutoff [...] Standards of Medical Care in Diabetes 2016, [place] [employer] Association. Diabetes Care. 2016.39(Suppl 1). Performed By: #### C YASMINE, BMP ####[place] [address], [place] [phone] Potassium [Moles/Vol] 3.8 mmol/L Normal 3.7-5.1 [facility] Comment on above: Performed By: #### C YASMINE, BMP ####[place] [address], [place] [phone] Sodium [Moles/Vol] 139 mmol/L Normal 136-144 [facility] Comment on above: Performed By: #### C YASMINE, BMP ####[place] [address], [place] [phone] Urea nitrogen [Mass/Vol] 18 mg/dL Normal 9-24 [facility] Comment on above: Performed By: #### C YASMINE, BMP ####[place] [address] [place], [place] [phone] CBCon 03-30-2021 Absolute nRBC <0.01 Normal <0.01 [facility] Comment on above: Performed By: #### C YASMINE, BMP ####[place] [address], [place] [phone] Erythrocyte distribution width (RBC) [Ratio] 11.2 % Low 11.5-15.0 [facility] Comment on above: Performed By: #### C YASMINE, BMP ####[place] [address], [place] [phone] Hematocrit (Bld) [Volume fraction] 37.6 % Low 39.0-51.0 [facility] Comment on above: Performed By: #### C BC, BMP ####[place] [address], [place] [phone] Hemoglobin (Bld) [Mass/Vol] 13.6 g/dL Normal 13.0-17.0 [facility] Comment on above: Performed By: #### C BC, BMP ####[facility] [place], [place] [phone] MCH 34.5 pG High 26.0-34.0 [facility] Comment on above: Performed By: #### C BC, BMP ####[place] [address], [place] [phone] MCHC (RBC) [Mass/Vol] 36.2 g/dL High 30.5-36.0 [facility] Comment on above: Performed By: #### C BC, BMP ####[place] [address], [place] [phone] MCV (RBC) [Entitic vol] 95.4 fL Normal 80.0-100.0 [facility] Comment on above: Performed By: #### C YASMINE, BMP ####[place] [address] [place], [place] [phone] Platelet mean volume (Bld) [Entitic vol] 10.7 fL Normal 9.0-12.7 [facility] Comment on above: Performed By: #### C YASMINE, BMP ####[place] [address], [place] [phone] Platelets (Bld) [#/Vol] 160 10*3/uL Normal 150-400 [facility] Comment on above: Performed By: #### C BC, BMP ####[place] [address], [place] [phone] RBC (Bld) [#/Vol] 3.94 10*6/uL Low 4.20-6.[address] [facility] Comment on above: Performed By: #### C BC, BMP ####[place] [address] [place], [place] [phone] WBC (Bld) [#/Vol] 4.71 10*3/uL Normal 3.70-11.[address] [facility] Comment on above: Performed By: #### C BC, BMP ####[facility] [address] [place], [place] [phone] Confirm Blood Typeon 021 ABO/RH(D) Positive Normal [facility] Comment on above: Performed By: #### C ONABO #### [facility] [address] [place], [place] [address] Performed By: #### T SCR #### [facility] [address] [place], [place] [address] NURSING PROGon 03-30-2021 NURSING PROG HNO ID: [id number] Author: Adriano Olivas RN Service: ? Author Type: Registered Nurse Type: Nursing Progress Note Filed: 03/30/2021 7:53 PM Note Text: Nursing Progress Note Patient Name: Freedom Rodgers Patient Location: [address] Transfer Note: Patient transferred into room/unit J82-04 via bed in stable condition.Actions taken: Patient oriented to room, unit, and call light system. Reviewed bedrest protocol with patient. Skin assessment completed with Jerrica PENNINGTON. All pressure points free from pressure injuries. Will continue to monitor and update LIP if changes occur. This note was completed by: Adriano Olivas Normal [facility] HOSPon 03-29-2021 HOSP Patient:Gustavo Rodgers MRN: Height:6' [...] discussed with Physician, nurse practitioner or Physician housing assistant property manager upon discharge Instructions for transmitting EKG to [...] Lab Procedure requested: Ablations [place] Ablation CPT 54077 Anticoagulation Status: Not anticoagulated Requesting Physician: Roxana [...] given, as indicated below. Stated understanding. Normal [facility] PreOp/PreProc COVIDon 2020 SARS-CoV-2 (COVID-19) RNA RODOLFO+probe Ql (Unsp spec) UPPER RESPIRATORY TRACT SWAB Normal [facility] Comment on above: Performed By: #### P OCOVD ####[facility] [id number] [place], [place] [address] [address] [place], [place] [phone] SARS-CoV-2 (COVID-19) RNA RODOLFO+probe Ql (Unsp spec) Negative for COVID19 (SARS CoV2) by RT-PCR or equivalent method. Normal Negative for COVID19 (SARS CoV2) by RT-PCR or equivalent method. [facility] Comment on above: Result Comment: This test was developed and its performance characteristics determined by [facility]'s [facility] Pathology and [facility] [place]. This test has been authorized by FDA under an Emergency Use Authorization (EUA). This test has been validated in accordance with the FDA's Guidance Document Policy for Diagnostics Testing in Laboratories Certified to Perform High Complexity Testing under CLIA prior to Emergency use Authorization for Coronavirus Disease 2019 during the Public Health Emergency issued on September 28, 2019. Test performed by [facility], [facility] and Laboratory Medicine [place], [address] [place], [place] [address]. Performed By: #### P OCOVD ####[address] [address] [phone] Kannan 03-26-2021 JOSEPH Telephone (EPSLA) ----- ANA MARIAFREEDOM ([id number]) 1960 M Date Time Provider Department 03/26/21 ROXANA DOWNINGLA During your visit today, we recorded the following information about you: Alta Barahona RN 03/26/2021 5:26 PM Signed ----- Message from Roxana Downing MD sent at 03/25/2021 6:20 PM EDT ----- Patient: Freedom Rodgers EP Lab Procedure requested: Ablations [place] Ablation CPT 61164 Anticoagulation Status: Not anticoagulated Requesting Physician: Roxana [...] Status:Closed by ALTA BARAHONA RN on 03/26/21 [facility] 03-25-2021 [facility] (BEE[facility] ----- FREEDOM RODGERS ([id number]) 1960 M Date Time Provider Department 03/25/21 ROXANA DOWNING [...] Status:Closed by ROXANA DOWNING on 03/25/21 Normal [facility] MRI CARD MORPH FUNC WO/W IVC ONon 03-25-2021 MRI CARD MORPH FUNC WO/W IVCON * * *Final Report* * * DATE OF EXAM: Mar 25 2021 3:11PM JQM 0703 - MRI CARD MORPH FUNC WO/W [...] left ventricular and valvular function. Technique: Nalini Fyreballia 3.0 Saskia MRI scanner. * Turbo spin [...] (RVEF 55%). 4. No significant valvular abnormalities. Irrigation Equipment Mechanic: ANITHA Transcribe Date/Time: Mar 25 2021 3:28P Dictated by : ALLIE WOOD MD This examination was interpreted and the report reviewed an (more content not included)... Normal [facility] MRI CARDIAC VELOCITY FLOW MA Chad 03-25-2021 MRI CARDIAC VELOCITY FLOW MAP * * *Final Report* * * DATE OF EXAM: Mar 25 2021 3:11PM Christie 0704 - MRI CARDIAC VELOCITY FLOW MAP [...] left ventricular and valvular function. Technique: Nalini Fyreballia 3.0 Saskia MRI scanner. * Turbo spin [...] (RVEF 55%). 4. No significant valvular abnormalities. Irrigation Equipment Mechanic: ANITHA Transcribe Date/Time: Mar 25 2021 3:28P Dictated by : ALLIE WOOD MD This examination was interpreted and the report reviewed and (more content not included)... Normal [facility] CNPNon 03-24-2021 [facility] (CARDMN[facility] ----- ANA MARIA,FREEDOM ([id number]) 1960 M Date Time Provider Department 03/24/21 ROXANA DOWNING During your visit today, we recorded the following information about you: Kyle [facility] 03/24/2021 8:25 AM Signed Printed and gave to MD for review - Kyle [facility] Janette Stevens RN 03/24/2021 5:29 PM [...] Myelopathy (HCC) [G95.9] 07/05/2016 Encounter Status:Closed by JANETTE STEVENS on 03/24/21 [facility] Kannan 03-19-2021 FREDYN Telephone (BEE) ----- FREEDOM RODGERS ([id number]) 1960 M Date Time Provider Department 03/19/21 ROXANA DOWNING During your visit today, we recorded the following information about you: June Schwartz [facility] 03/19/2021 3:39 PM Signed Records Scanned into [employer] Allergies As of Date: 03/19/2021 Noted Allergy Reaction IODINATED CONTRAST MEDIA 09/08/2004 4 - Hives Date Reviewed: 03/04/2021 Reviewed by: Roxana Downing MD - Fully Assessed Reason for Visit: Received Outside Medical Records [3571] Cmt: Introduction letter from referring phys Prescriptions [...] Encounter Status:Closed by JUNE MARTINEZ on 03/19/21 Normal [facility] Kannan 03-05-2021 FREDYN Telephone (CARDMN) ----- FREEDOM RODGERS ([id number]) 1960 M Date Time Provider Department 03/05/21 ROXANA DOWNING During your visit today, we recorded the following information about you: Kyle Parsons [facility] 03/05/2021 3:52 PM Signed Received outside records - Saved to EP Outside Record Appointment on Visit date not found Last appointment with this provider 03/04/2021 Last OV in this dept 03/04/2021 Kyle Parsons [facility] [place] [id number] Allergies As of Date: 03/05/2021 Noted Allergy Reaction IODINATED CONTRAST MEDIA 09/08/2004 4 - Hives Date Reviewed: 03/04/2021 Reviewed by: Roxana Downing MD - Fully Assessed Reason for Visit: Received Outside Medical Records [3572] Prescriptions as of 03/05/2021 - losartan-hydroCHLOROthiaz renetta [...] Myelopathy (HCC) [G95.9] 07/05/2016 Encounter Status:Closed by KYLE DAY on 03/05/21 [facility] CNOVon 03-04-2021 CNOV Office Visit (CARDMN ) ----- FREEDOM RODGERS ([id number]) 1960 M Date Time Provider Department 03/04/21 7:45 AM ROXANA DOWNING CARDLA During your visit today, we recorded the following information about you: Pulse Blood pressure Weight Height 76/minute 122/90 83.9 kg 1.829 m Roxana Downing MD 03/27/2021 10:04 PM Addendum Jonny Cameron RN 03/04/2021 10:22 PM [facility] [place] Melissa Medina Department of Cardiovascular Medicine SECTION OF CARDIAC PACING and ELECTROPHYSIOLOGY OUTPATIENT VISIT DATE March 04, 2021 OUTPATIENT VISIT TYPE NEW PRIMARY CARE PHYSICIAN: Archie Hooks MD [facility] [place]note 2] [place] [address] REFERRING PHYSICIAN: Archie Hooks MD [facility] [place]note 2] [address] [facility] [address] NURSING INTAKE HISTORY: Mr. Rodgers is a [...] 55-60%. He has been using his 's Manueldia this past week to monitor, but has had no similar episodes. He has not worn a front desk monitor. He reports occasional palpitations and lightheadedness, [...] lb) BMI 25.09 kg/m? CARDIOVASCULAR MEDICINE TESTING: [facility] Echo 02/25/2021: Interpretation Summary The left ventricular size, thickness and function are normal Ejection Fraction = 55-60%. A variety of Doppler measurements indicate normal left ventricular diastolic function. There is trace mitral regurgitation. There is trace tricuspid regurgitation. Roxana Downing MD 03/04/2021 10:22 PM Addendum Asked to see by D (more content not included)... Normal [facility] RPRon 11-21-2017 Reagin antibody presence Nonreactive Normal Nonreactive [facility] Comment on above: Performed By: #### U A, CBCDIF, GBCHEM, GBTSH, MG, PT, RPR ####[facility] Psa[address] [place], [place] [phone] CBCDIFon 11-16-2017 Abs Baso 0.02 k/uL Normal 0-0.2 [facility] Comment on above: Performed By: #### U A, CBCDIF, GBCHEM, GBTSH, MG, PT, RPR ####[facility] [id number] [place], [place] [phone] Abs [place] 0.56 k/uL Normal 0-0.8 [facility] Comment on above: Performed By: #### U A, CBCDIF, GBCHEM, GBTSH, MG, PT, RPR ####[facility] [id number] [place], [place] [phone] Abs Neut 3.05 k/uL Normal 1.8-7.7 [facility] Comment on above: Performed By: #### U A, CBCDIF, GBCHEM, GBTSH, MG, PT, RPR ####[facility] [id number] [place], [place] [phone] Basophils/100 WBC Auto (Bld) 0.3 % Normal 0-1 [facility] Comment on above: Performed By: #### U A, CBCDIF, GBCHEM, GBTSH, MG, PT, RPR ####[facility] [id number] [facility], [place] [phone] Eosinophils 0.19 10*3/uL Normal 0-0.4 [facility] Comment on above: Performed By: #### U A, CBCDIF, GBCHEM, GBTSH, MG, PT, RPR ####[facility] [id number] [place], [place] [phone] Eosinophils/100 leukocytes 2.9 % Normal 0-4 [facility] Comment on above: Performed By: #### U A, CBCDIF, GBCHEM, GBTSH, MG, PT, RPR ####[facility] [id number] [place], [place] [phone] Erythrocyte distribution width Auto Ratio (RBC) 11.9 % Normal 11.5-14.5 [facility] Comment on above: Performed By: #### U A, CBCDIF, GBCHEM, GBTSH, MG, PT, RPR ####[facility] [id number] [facility] [place] [phone] Erythrocytes (RBC) 0 /100 WBC Normal 0-0.9 [facility] Comment on above: Performed By: #### U A, CBCDIF, GBCHEM, GBTSH, MG, PT, RPR ####[facility] [id number] [facility], [place] [phone] Erythrocytes (RBC) 4.47 10*6/uL Low 4.50-5.90 [facility] Comment on above: Performed By: #### U A, CBCDIF, GBCHEM, GBTSH, MG, PT, RPR ####[facility] [id number] [facility], [place] [phone] Hematocrit (HCT) 42.7 % Normal 41.0-53.0 [facility] Comment on above: Performed By: #### U A, CBCDIF, GBCHEM, GBTSH, MG, PT, RPR ####[facility] [id number] [facility], [place] [phone] Hemoglobin mass conc (Bld) 15.1 g/dL Normal 13.5-17.5 [facility] Comment on above: Performed By: #### U A, CBCDIF, GBCHEM, GBTSH, MG, PT, RPR ####[facility] [id number] [facility], [place] [phone] Immature Gran 0.20 % Normal 0-1.9 [facility] Comment on above: Performed By: #### U A, CBCDIF, GBCHEM, GBTSH, MG, PT, RPR ####[facility] [id number] [place], [place] [phone] Lymphocytes 2.81 10*3/uL Normal 1.0-4.0 [facility] Comment on above: Performed By: #### U A, CBCDIF, GBCHEM, GBTSH, MG, PT, RPR ####[facility] [id number] [facility], [place] [phone] Lymphocytes/100 leukocytes 42.3 % Normal 22-44 [facility] Comment on above: Performed By: #### U A, CBCDIF, GBCHEM, GBTSH, MG, PT, RPR ####[facility] [id number] [place], [place] [phone] MCH 33.8 pG Normal 26-34 [facility] Comment on above: Performed By: #### U A, CBCDIF, GBCHEM, GBTSH, MG, PT, RPR ####[facility] [id number] [place] [address], [place] [phone] MCHC mass conc (RBC) 35.4 g/dL Normal 31-37 [facility] Comment on above: Performed By: #### U A, CBCDIF, GBCHEM, GBTSH, MG, PT, RPR ####[facility] Clinical [id number] [place] [address], [place] [phone] MCV 95.5 fL Normal 80-100 [facility] Comment on above: Performed By: #### U A, CBCDIF, GBCHEM, GBTSH, MG, PT, RPR ####[facility] [id number] [facility], [place] [phone] Monocytes/100 leukocytes 8.4 % Normal 4-12 [facility] Comment on above: Performed By: #### U A, CBCDIF, GBCHEM, GBTSH, MG, PT, RPR ####[facility] Clinical [id number] [address] [place] [address], [place] [phone] Neutrophils/100 WBC Auto (Bld) 45.9 % Normal 40-70 [facility] Comment on above: Performed By: #### U A, CBCDIF, GBCHEM, GBTSH, MG, PT, RPR ####[facility] Clinical [id number] [place] [address], [place] [phone] Platelets 200 10*3/uL Normal 150-450 [facility] Comment on above: Performed By: #### U A, CBCDIF, GBCHEM, GBTSH, MG, PT, RPR ####[facility] Clinical [id number] [address] [place] [address], [place] [phone] WBC (Leukocytes) 6.64 10*3/uL Normal 4.5-11.0 [facility] Comment on above: Performed By: #### U A, CBCDIF, GBCHEM, GBTSH, MG, PT, RPR ####[facility] [id number] [place], [place] [phone] Telly Marieniecy 2017 Alanine aminotransferase (ALT) 42 U/L Normal 21-72 [facility] Comment on above: Performed By: #### U A, CBCDIF, GBCHEM, GBTSH, MG, PT, RPR ####[facility] Clinical [id number] [place] [address], [place] [phone] Albumin 4.1 g/dL Normal 3.5-5.0 [facility] Comment on above: Performed By: #### U A, CBCDIF, GBCHEM, GBTSH, MG, PT, RPR ####[facility] [id number] [phone] Alkaline Phos 73 U/L Normal 38-125 [facility] Comment on above: Performed By: #### U A, CBCDIF, GBCHEM, GBTSH, MG, PT, RPR ####[facility] [id number] [place] [address], [place] [phone] Amylase 78 U/L Normal 30-110 [facility] Comment on above: Performed By: #### U A, CBCDIF, GBCHEM, GBTSH, MG, PT, RPR ####[facility] [id number] [place], [place] [phone] Anion gap 16 mmol/L High 0-15 [facility] Comment on above: Performed By: #### U A, CBCDIF, GBCHEM, GBTSH, MG, PT, RPR ####[facility] [id number] [place] [address], [place] [phone] Aspartate aminotransferase (AST) 24 U/L Normal 17-59 [facility] Comment on above: Performed By: #### U A, CBCDIF, GBCHEM, GBTSH, MG, PT, RPR ####[facility] Clinical [id number] [place], [place] [phone] Bilirubin Ql (U) 0.8 mg/dL Normal 0.2-1.3 [facility] Comment on above: Performed By: #### U A, CBCDIF, GBCHEM, GBTSH, MG, PT, RPR ####[facility] Clinical [id number] [facility] Hospital[facility], [place] [phone] Calcium 9.2 mg/dL Normal 8.4-10.2 [facility] Comment on above: Performed By: #### U A, CBCDIF, GBCHEM, GBTSH, MG, PT, RPR ####[facility] Clinical [id number] [facility] Hospital[facility], [place] [phone] Chloride 108 mmol/L High 98-107 [facility] Comment on above: Performed By: #### U A, CBCDIF, GBCHEM, GBTSH, MG, PT, RPR ####[facility] Clinical [id number] [facility] HospitalR[facility], [place] [phone] Cholesterol 196 mg/dL Normal 100-199 [facility] Comment on above: Performed By: #### U A, CBCDIF, GBCHEM, GBTSH, MG, PT, RPR ####[facility] Clinical [id number] [facility], [place] [phone] CO2 24 mmol/L Normal 22-30 [facility] Comment on above: Performed By: #### U A, CBCDIF, GBCHEM, GBTSH, MG, PT, RPR ####[facility] Clinical [id number] [facility], [place] [phone] Creatinine 0.68 mg/dL Normal 0.66-1.25 [facility] Comment on above: Performed By: #### U A, CBCDIF, GBCHEM, GBTSH, MG, PT, RPR ####[facility] Clinical [id number] [place] [address], [place] [phone] eGFR (non-black) mL/min/{1.73_m2} Normal >60 [facility] Comment on above: Performed By: #### U A, CBCDIF, GBCHEM, GBTSH, MG, PT, RPR ####[facility] Clinical [id number] [facility], [place] [phone] Result Comment: MDRD calculation used for eGFR results. GGT 78 U/L High 15-73 [facility] Comment on above: Performed By: #### U A, CBCDIF, GBCHEM, GBTSH, MG, PT, RPR ####[facility] Clinical [id number] [facility], [place] [phone] Glucose mass conc 84 mg/dL Normal 74-106 [facility] Comment on above: Performed By: #### U A, CBCDIF, GBCHEM, GBTSH, MG, PT, RPR ####[facility] Clinical [id number] [facility], [place] [phone] LDH 424 U/L Normal 318-618 [facility] Comment on above: Performed By: #### U A, CBCDIF, GBCHEM, GBTSH, MG, PT, RPR ####[facility] Clinical [id number] [facility], [place] [phone] Phosphate 4.1 mg/dL Normal 2.5-4.5 [facility] Comment on above: Performed By: #### U A, CBCDIF, GBCHEM, GBTSH, MG, PT, RPR ####[facility] [id number] [facility], [place] [phone] Potassium molar conc 3.6 mmol/L Normal 3.5-5.1 [facility] Comment on above: Performed By: #### U A, CBCDIF, GBCHEM, GBTSH, MG, PT, RPR ####[facility] Clinical [id number] [place] [address], [place] [phone] Protein 6.6 g/dL Normal 6.2-8.2 [facility] Comment on above: Performed By: #### U A, CBCDIF, GBCHEM, GBTSH, MG, PT, RPR ####[facility] Clinical [id number] [facility], [phone] Sodium 144 mmol/L Normal 137-145 [facility] Comment on above: Performed By: #### U A, CBCDIF, GBCHEM, GBTSH, MG, PT, RPR ####[facility] Clinical [id number] [facility], [phone] Triglyceride 125 mg/dL Normal 35-150 [facility] Comment on above: Performed By: #### U A, CBCDIF, GBCHEM, GBTSH, MG, PT, RPR ####[facility] Clinical [id number] [facility], [phone] Urate 5.0 mg/dL Normal 3.5-8.5 [facility] Comment on above: Performed By: #### U A, CBCDIF, GBCHEM, GBTSH, MG, PT, RPR ####[facility] Clinical [id number] [facility], [phone] Urea nitrogen 15 mg/dL Normal 9-20 [facility] Comment on above: Performed By: #### U A, CBCDIF, GBCHEM, GBTSH, MG, PT, RPR ####[facility] Clinical [id number] [facility], [phone] [facility] TSHon 11-16-2017 Thyroid stimulating hormone (TSH) 2.210 uU/mL Normal 0.465-4.680 [facility] Comment on above: Performed By: #### U A, CBCDIF, GBCHEM, GBTSH, MG, PT, RPR ####[facility] Clinical [id number] [place] [address], [phone] Magnesiumon 11-16-2017 Magnesium 1.9 mg/dL Normal 1.3-2.3 [facility] Comment on above: Performed By: #### U A, CBCDIF, GBCHEM, GBTSH, MG, PT, RPR ####[facility] Clinical [id number] [facility] HospitalRosio[facility], [place] [phone] Protimeon 11-16-2017 INR Coag RelTime (Bld) 1.1 {INR} Normal 0.6-1.1 [facility] Comment on above: Result Comment: The PT/INR [...] to 3.5 for older generation mechanical heart valves.John, et al. Chest 2004: 126:204S to 233S. Performed By: #### U A, CBCDIF, GBCHEM, GBTSH, MG, PT, RPR ####[facility] Clinical [id number] [place], [place] [phone] PT Sec 13.2 sec Normal 11.8-14.1 [facility] Comment on above: Performed By: #### U A, CBCDIF, GBCHEM, GBTSH, MG, PT, RPR ####[facility] Clinical [id number] [place], [place] [phone] Urinalysison 11-16-2017 Bilirubin (total) Negative Normal Negative [facility] Comment on above: Performed By: #### U A, CBCDIF, GBCHEM, GBTSH, MG, PT, RPR ####[facility] [id number] [place], [place] [phone] Cast SEE NOTES Normal 0 [facility] Comment on above: Result Comment: 3-5H yaline Cast Performed By: #### U A, CBCDIF, GBCHEM, GBTSH, MG, PT, RPR ####[facility] Clinical [id number] [facility], [place] [phone] Erythrocytes (RBC) 0-3 Normal 0-3 [facility] Comment on above: Performed By: #### U A, CBCDIF, GBCHEM, GBTSH, MG, PT, RPR ####[facility] Clinical [id number] [facility], [place] [phone] Glucose mass conc Negative Normal Negative [facility] Comment on above: Performed By: #### U A, CBCDIF, GBCHEM, GBTSH, MG, PT, RPR ####[facility] Clinical [id number] [facility], [place] [phone] Hemoglobin mass conc (Bld) Negative Normal Negative [facility] Comment on above: Performed By: #### U A, CBCDIF, GBCHEM, GBTSH, MG, PT, RPR ####[facility] [id number] [facility], [place] [phone] Ketone Negative Normal Negative [facility] Comment on above: Performed By: #### U A, CBCDIF, GBCHEM, GBTSH, MG, PT, RPR ####[facility] [id number] [facility], [place] [phone] Leukest Negative Normal Negative [facility] Comment on above: Performed By: #### U A, CBCDIF, GBCHEM, GBTSH, MG, PT, RPR ####[facility] [id number] [facility], [place] [phone] Protein 30 mg/dl Critically abnormal Negative [facility] Comment on above: Performed By: #### U A, CBCDIF, GBCHEM, GBTSH, MG, PT, RPR ####[facility] [id number] [facility], [place] [phone] Urine Felton Comment Many Normal [facility] Comment on above: Result Comment: MUCO US Performed By: #### U A, CBCDIF, GBCHEM, GBTSH, MG, PT, RPR ####[facility] [id number] [place], [place] [phone] Urine Spec [place] 1.032 High 1.005-1.030 [facility] Comment on above: Performed By: #### U A, CBCDIF, GBCHEM, GBTSH, MG, PT, RPR ####[facility] Clinical [id number] [facility], [place] [phone] Urine, clarity Hazy Critically abnormal Clear [facility] Comment on above: Performed By: #### U A, CBCDIF, GBCHEM, GBTSH, MG, PT, RPR ####[facility] Clinical [id number] [place], [place] [phone] Urine, color Yellow Normal Yellow [facility] Comment on above: Performed By: #### U A, CBCDIF, GBCHEM, GBTSH, MG, PT, RPR ####[facility] Clinical [id number] [facility], [place] [phone] Urine, crystals in sediment SEE NOTES Normal 0 [facility] Comment on above: Result Comment: FewC alcium Oxalate Crystal Performed By: #### U A, CBCDIF, GBCHEM, GBTSH, MG, PT, RPR ####[facility] [id number] [facility], [place] [phone] Urine, epithelial cells in sediment Few Normal [facility] Comment on above: Result Comment: Vazquez sitional Epithelial Cells Performed By: #### U A, CBCDIF, GBCHEM, GBTSH, MG, PT, RPR ####[facility] [id number] [place] [address], [place] [phone] Urine, nitrite presence Negative Normal Negative [facility] Comment on above: Performed By: #### U A, CBCDIF, GBCHEM, GBTSH, MG, PT, RPR ####[facility] [id number] [place] [address], [place] [phone] Urine, pH 5.0 [pH] Normal 5-7 [facility] Comment on above: Performed By: #### U A, CBCDIF, GBCHEM, GBTSH, MG, PT, RPR ####[facility] [id number] [place], [place] [phone] Urine, urobilinogen <2.0 Normal 0.0-1.0 [facility] Comment on above: Performed By: #### U A, CBCDIF, GBCHEM, GBTSH, MG, PT, RPR ####[facility] [id number] [place], [place] [phone] WBC (Leukocytes) 0-5 Normal 0-5 [facility] Comment on above: Performed By: #### U A, CBCDIF, GBCHEM, GBTSH, MG, PT, RPR ####[facility] [id number] [place], [place] [phone] Vital Signs Date Time Vital Sign Value Performing Clinician Facility 06-11-2024 10:57-0500 Body height 180.3 cm Archie Hooks MD [facility] 06-11-2024 10:57-0500 Body mass index (BMI) [Ratio] 22.45 kg/m2 Archie Hooks MD Work Phone: [facility] 06-11-2024 10:57-0500 Body weight 73.03 kg Archie Hooks MD Work Phone: [facility] 05-02-2024 08:25-0400 Body height 180.3 cm Archie Hooks MD Work Phone: [facility] 05-02-2024 08:25-0400 Body mass index (BMI) [Ratio] 22.45 kg/m2 Archie Hooks MD Work Phone: [facility] 05-02-2024 08:25-0400 Body weight 73.03 kg Archie Hooks MD Work Phone: [facility] 05-02-2024 08:25-0400 Diastolic blood pressure 74 mm[Hg] Archie Hooks MD Work Phone: [facility] 05-02-2024 08:25-0400 Heart rate 59 /min Archie Hooks MD Work Phone: [facility] 05-02-2024 08:25-0400 SaO2% (BldA) [Mass fraction] 96 % Archie Hooks MD Work Phone: [facility] 05-02-2024 08:25-0400 Systolic blood pressure 126 mm[Hg] Archie Hooks MD Work Phone: [facility] 04-25-2024 14:08-0400 Body height 180.3 cm Luis Ruby MD Work Phone: [facility] 04-25-2024 14:08-0400 Body mass index (BMI) [Ratio] 22.32 kg/m2 Luis Ruby MD Work Phone: [facility] 04-25-2024 14:08-0400 Body weight 72.58 kg Luis Ruby MD Work Phone: [facility] 04-25-2024 14:08-0400 Diastolic blood pressure 84 mm[Hg] Luis Ruby MD Work Phone: [facility] 04-25-2024 14:08-0400 Systolic blood pressure 136 mm[Hg] Luis Ruby MD Work Phone: [facility] 12-11-2023 10:53-0400 Body height 182.9 cm López Seals MD Work Phone: [facility] 12-11-2023 10:53-0400 Body mass index (BMI) [Ratio] 22.11 kg/m2 López Seals MD Work Phone: [facility] 12-11-2023 10:53-0400 Body weight 73.94 kg López Seals MD Work Phone: [facility] 12-11-2023 10:53-0400 Diastolic blood pressure 72 mm[Hg] López Seals MD Work Phone: [facility] 12-11-2023 10:53-0400 Heart rate 56 /min López Seals MD Work Phone: [facility] 12-11-2023 10:53-0400 Systolic blood pressure 106 mm[Hg] López Seals MD Work Phone: [facility] 10-30-2023 09:00-0400 Body height 182.9 cm [facility] 10-30-2023 09:00-0400 Body mass index (BMI) [Ratio] 22.78 kg/m2 [facility] 10-30-2023 09:00-0400 Body weight 76.2 kg [facility] 10-30-2023 09:00-0400 Diastolic blood pressure 60 mm[Hg] [facility] 10-30-2023 09:00-0400 Heart rate 57 /min [facility] 10-30-2023 09:00-0400 Systolic blood pressure 100 mm[Hg] [facility] 10-27-2023 14:35-0400 Body height 182.9 cm López Seals MD Work Phone: [facility] 10-27-2023 14:35-0400 Body mass index (BMI) [Ratio] 22.78 kg/m2 López Seals MD Work Phone: [facility] 10-27-2023 14:35-0400 Body weight 76.2 kg López Seals MD Work Phone: [facility] 10-27-2023 14:35-0400 Diastolic blood pressure 68 mm[Hg] López Seals MD Work Phone: [facility] 10-27-2023 14:35-0400 Heart rate 58 /min López Saels MD Work Phone: [facility] 10-27-2023 14:35-0400 Systolic blood pressure 124 mm[Hg] López Seals MD Work Phone: [facility] 07-20-2023 16:28-0500 Heart rate 51 /min Víctor COOK [facility] 07-20-2023 16:28-0500 SaO2% (BldA) [Mass fraction] 100 % Víctor COOK [facility] 07-20-2023 16:27-0500 Diastolic blood pressure 87 mm[Hg] Víctor COOK [facility] 07-20-2023 16:27-0500 Mean blood pressure 104 mm[Hg] Víctor COOK [facility] 07-20-2023 16:27-0500 Systolic blood pressure 137 mm[Hg] Víctor COOK [facility] 07-20-2023 16:27-0500 Body temperature 97.7 [degF] Víctor COOK [facility] 07-20-2023 16:27-0500 Mean blood pressure 104 mm[Hg] Víctor BRADY [facility] 07-20-2023 15:30-0500 Body temperature 97.52 [degF] Víctor COOK [facility] 07-20-2023 15:30-0500 Diastolic blood pressure 82 mm[Hg] Víctor COOK [facility] 07-20-2023 15:30-0500 Heart rate 51 /min Víctor COOK [facility] 07-20-2023 15:30-0500 Mean blood pressure 104 mm[Hg] Víctor COOK [facility] 07-20-2023 15:30-0500 Respiratory rate 14 /min Víctor COOK [facility] 07-20-2023 15:30-0500 SaO2% (BldA) [Mass fraction] 100 % Víctor COOK [facility] 07-20-2023 15:30-0500 Systolic blood pressure 149 mm[Hg] Víctor COOK [facility] 07-20-2023 15:22-0500 Body temperature 97.7 [degF] Víctor COOK [facility] 07-20-2023 15:22-0500 Diastolic blood pressure 85 mm[Hg] Víctor COOK [facility] 07-20-2023 15:22-0500 Heart rate 52 /min Víctor COOK [facility] 07-20-2023 15:22-0500 Mean blood pressure 105 mm[Hg] Víctor COOK [facility] 07-20-2023 15:22-0500 Respiratory rate 15 /min Víctor COOK [facility] 07-20-2023 15:22-0500 SaO2% (BldA) [Mass fraction] 100 % Víctor BRADY [facility] 07-20-2023 15:22-0500 Systolic blood pressure 145 mm[Hg] Víctor COOK [facility] 07-20-2023 15:10-0500 Respiratory rate 12 /min Víctor COOK [facility] 07-20-2023 14:50-0500 Respiratory rate 10 /min Víctor COOK [facility] 07-20-2023 14:45-0500 Respiratory rate 10 /min Víctor COOK [facility] 07-20-2023 14:40-0500 Respiratory rate 10 /min Víctor COOK [facility] 07-20-2023 12:15-0500 Body temperature 97.34 [degF] Víctor BRADY [facility] 07-20-2023 12:15-0500 Mean blood pressure 113 mm[Hg] Víctor BRADY [facility] 07-14-2023 10:23-0500 Diastolic blood pressure 71 mm[Hg] Víctor BRADY [facility] 07-14-2023 10:23-0500 Heart rate 57 /min Víctor BRADY [facility] 07-14-2023 10:23-0500 Mean blood pressure 88 mm[Hg] Víctor BRADY [facility] 07-14-2023 10:23-0500 Systolic blood pressure 121 mm[Hg] Víctor BRADY [facility] 07-14-2023 10:22-0500 Heart rate 59 /min Víctor BRADY [facility] 07-14-2023 10:22-0500 SaO2% (BldA) [Mass fraction] 98 % Víctor BRADY [facility] 07-14-2023 10:22-0500 Diastolic blood pressure 74 mm[Hg] Víctor BRADY [facility] 07-14-2023 10:22-0500 Mean blood pressure 90 mm[Hg] Víctor BRADY [facility] 07-14-2023 10:22-0500 Systolic blood pressure 123 mm[Hg] Víctor BRADY [facility] 07-06-2023 20:25-0500 Diastolic blood pressure 72 mm[Hg] MD Archie Hooks Work Phone: [facility] 07-06-2023 20:25-0500 Heart rate 61 /min MD Archie Hooks Work Phone: [facility] 07-06-2023 20:25-0500 Respiratory rate 18 /min MD Archie Hooks Work Phone: [facility] 07-06-2023 20:25-0500 SaO2% (BldA) [Mass fraction] 98 % MD Archie Hooks Work Phone: [facility] 07-06-2023 20:25-0500 Systolic blood pressure 113 mm[Hg] MD Archie Hooks Work Phone: [facility] 07-06-2023 17:16-0500 Body height 185.42 cm MD Archie Hooks Work Phone: [facility] 07-06-2023 17:16-0500 Body temperature 98.6 [degF] MD Archie Hooks Work Phone: [facility] 07-06-2023 17:16-0500 Body weight 78.01 kg MD Archie Hooks Work Phone: [facility] 07-04-2023 13:30-0500 Blood Pressure Location Víctor MIAN [facility] 07-04-2023 13:30-0500 Diastolic blood pressure 74 mm[Hg] Víctor BRADY [facility] 07-04-2023 13:30-0500 Heart rate 70 /min Víctor MIAN [facility] 07-04-2023 13:30-0500 Systolic blood pressure 120 mm[Hg] Víctor BRADY [facility] 06-28-2023 16:15-0500 Diastolic blood pressure 69 mm[Hg] MD Archie Hooks Work Phone: [facility] 06-28-2023 16:15-0500 Heart rate 62 /min MD Archie Hooks Work Phone: [facility] 06-28-2023 16:15-0500 Respiratory rate 16 /min MD Archie Hooks Work Phone: [facility] 06-28-2023 16:15-0500 SaO2% (BldA) [Mass fraction] 96 % MD Archie Hooks Work Phone: [facility] 06-28-2023 16:15-0500 Systolic blood pressure 107 mm[Hg] MD Archie Hooks Work Phone: [facility] 06-28-2023 11:49-0500 Body height 185.42 cm MD Archie Hooks Work Phone: [facility] 06-28-2023 11:49-0500 Body temperature 97.5 [degF] MD Archie Hooks Work Phone: [facility] 06-28-2023 11:49-0500 Body weight 78.2 kg MD Archie Hooks Work Phone: [facility] 06-23-2023 03:50-0500 Diastolic blood pressure 89 mm[Hg] MD Archie Hooks Work Phone: [facility] 06-23-2023 03:50-0500 Heart rate 62 /min MD Archie Hooks Work Phone: [facility] 06-23-2023 03:50-0500 Respiratory rate 18 /min MD Archie Hooks Work Phone: [facility] 06-23-2023 03:50-0500 SaO2% (BldA) [Mass fraction] 98 % MD Archie Hooks Work Phone: [facility] 06-23-2023 03:50-0500 Systolic blood pressure 164 mm[Hg] MD Archie Hooks Work Phone: [facility] 06-23-2023 02:31-0500 Body temperature 97.4 [degF] MD Archie Hooks Work Phone: [facility] 06-23-2023 00:34-0500 Body height 185.42 cm MD Archie Hooks Work Phone: [facility] 06-23-2023 00:34-0500 Body weight 78 kg MD Archie Hooks Work Phone: [facility] 06-01-2023 10:14-0400 Body height 185.4 cm López Galan DO Work Phone: [facility] 06-01-2023 10:140400 Body mass index (BMI) [Ratio] 22.56 kg/m2 López Galan DO Work Phone: [facility] 06-01-2023 10:140400 Body weight 77.56 kg López Galan DO Work Phone: [facility] 06-01-2023 10:14-0400 Diastolic blood pressure 64 mm[Hg] López Galan DO Work Phone: [facility] 06-01-2023 10:14-0400 Heart rate 62 /min López Galan DO Work Phone: [facility] [facility]23 10:14-0400 Systolic blood pressure 102 mm[Hg] López Galan DO Work Phone: [facility] 05-01-2023 13:17-0400 Diastolic blood pressure 71 mm[Hg] MD Archie Hooks Work Phone: [facility] 05-01-2023 13:17-0400 Heart rate 60 /min MD Archie Hooks Work Phone: [facility] 05-01-2023 13:17-0400 Respiratory rate 16 /min MD Archie Hooks Work Phone: [facility] 05-01-2023 13:17-0400 SaO2% (BldA) [Mass fraction] 98 % MD Archie Hooks Work Phone: [facility] 05-01-2023 13:17-0400 Systolic blood pressure 110 mm[Hg] MD Archie Hooks Work Phone: [facility] 05-01-2023 08:48-0400 Body height 185.42 cm MD Archie Hooks Work Phone: [facility] 05-01-2023 08:48-0400 Body temperature 97.1 [degF] MD Archie Hooks Work Phone: [facility] 05-01-2023 08:48-0400 Body weight 78 kg MD Archie Hooks Work Phone: [facility] 04-26-2023 11:27-0400 Body height 185.42 cm Archie Hooks Work Phone: [facility] DO Work Phone: 04-26-2023 11:27-0400 Body mass index (BMI) [Ratio] 22.96 kg/m2 Archie Hooks Work Phone: [facility] [facility] DO Work Phone: 04-26-2023 11:27-0400 Body surface area Derived from formula 2.03 m2 Archie Hooks Work Phone: [facility] [facility] DO Work Phone: 04-26-2023 11:27-0400 Body weight 78.93 kg Archie Hooks Work Phone: [facility] [facility] DO Work Phone: 04-26-2023 11:27-0400 Diastolic blood pressure 98 mm[Hg] Archie Hooks Work Phone: [facility] DO Work Phone: 04-26-2023 11:27-0400 Heart rate 62 /min Archie Hooks Work Phone: [facility] DO Work Phone: 04-26-2023 11:27-0400 Systolic blood pressure 142 mm[Hg] Archie Hooks Work Phone: [facility] [facility] DO Work Phone: 03-05-2023 07:30-0400 Body temperature 97.6 [degF] MD Archie Hooks Work Phone: [facility] 03-05-2023 07:30-0400 Diastolic blood pressure 95 mm[Hg] MD Archie Hooks Work Phone: [facility] 03-05-2023 07:30-0400 Heart rate 72 /min MD Archie Hooks Work Phone: [facility] 03-05-2023 07:30-0400 Respiratory rate 16 /min MD Archie Hooks Work Phone: [facility] 03-05-2023 07:30-0400 SaO2% (BldA) [Mass fraction] 95 % MD Archie Hooks Work Phone: [facility] 03-05-2023 07:30-0400 Systolic blood pressure 153 mm[Hg] MD Archie Hooks Work Phone: [facility] 03-02-2023 15:03-0400 Body height 185.42 cm MD Archie Hooks Work Phone: [facility] 03-01-2023 10:23-0400 Body weight 81.19 kg MD Archie Hooks Work Phone: [facility] 02-20-2023 08:03-0400 Body height 185.42 cm Archie Hooks Work Phone: [facility] [facility] DO Work Phone: 02-20-2023 08:03-0400 Body mass index (BMI) [Ratio] 23.35 kg/m2 Archie Valenteyer Work Phone: [facility] DO Work Phone: 02-20-2023 08:03-0400 Body surface area Derived from formula 2.04 m2 Archie Valenteyer Work Phone: [facility] DO Work Phone: 02-20-2023 08:03-0400 Body weight 80.29 kg Edpilo Hooks Work Phone: [facility] 250 DO Work Phone: 02-20-2023 08:03-0400 Diastolic blood pressure 60 mm[Hg] Archie Valenteyer Work Phone: [facility] [facility] DO Work Phone: 02-20-2023 08:03-0400 Heart rate 64 /min Edpilo Hooks Work Phone: [facility] DO Work Phone: 02-20-2023 08:03-0400 Systolic blood pressure 104 mm[Hg] Archie Valenteyer Work Phone: [facility] DO Work Phone: 01-25-2023 08:34-0400 Body height 185.42 cm Archie Valenteyer Work Phone: [facility] [facility] DO Work Phone: 01-25-2023 08:34-0400 Body mass index (BMI) [Ratio] 23.88 kg/m2 Archie Valenteyer Work Phone: [facility] [facility] DO Work Phone: 01-25-2023 08:34-0400 Body surface area Derived from formula 2.06 m2 Archie Soriano Ambrosioyer Work Phone: [facility] [facility] DO Work Phone: 01-25-2023 08:34-0400 Body weight 82.1 kg Archie Hooks Work Phone: [facility] [facility] DO Work Phone: 01-25-2023 08:34-0400 Diastolic blood pressure 94 mm[Hg] Archie Soriano Ambrosioyer Work Phone: [facility] [facility] DO Work Phone: 01-25-2023 08:34-0400 Heart rate 62 /min Archie Valentealejandra Work Phone: [facility] [facility] DO Work Phone: 01-25-2023 08:34-0400 Systolic blood pressure 142 mm[Hg] Archie Valentealejandra Work Phone: [facility] DO Work Phone: 01-13-2023 14:25-0400 Body temperature 97 [degF] MD Archie Hooks Work Phone: [facility] 01-13-2023 14:25-0400 Diastolic blood pressure 75 mm[Hg] MD Archie Hooks Work Phone: [facility] 01-13-2023 14:25-0400 Heart rate 55 /min MD Archie Hooks Work Phone: [facility] 01-13-2023 14:25-0400 Respiratory rate 16 /min MD Archie Hooks Work Phone: [facility] 01-13-2023 14:25-0400 SaO2% (BldA) [Mass fraction] 97 % MD Archie Hooks Work Phone: [facility] 01-13-2023 14:25-0400 Systolic blood pressure 130 mm[Hg] MD Archie Hooks Work Phone: [facility] 01-13-2023 06:00-0400 Body weight 81.7 kg MD Archie Hoosk Work Phone: [facility] 01-12-2023 14:55-0400 Body height 182.88 cm MD Archie Hooks Work Phone: [facility] 01-12-2023 13:12-0400 60 1 Archie Hooks Work Phone: [facility] [facility] DO Work Phone: Comment on above: [email or web address] 01-12-2023 12:30-0400 Diastolic blood pressure 67 mm[Hg] MD Archie Hooks Work Phone: [facility] 01-12-2023 12:30-0400 Heart rate 50 /min MD Archie Hooks Work Phone: [facility] 01-12-2023 12:30-0400 Respiratory rate 18 /min MD Archie Hooks Work Phone: [facility] 01-12-2023 12:30-0400 SaO2% (BldA) [Mass fraction] 99 % MD Arcihe Hooks Work Phone: [facility] 01-12-2023 12:30-0400 Systolic blood pressure 120 mm[Hg] MD Archie Hooks Work Phone: [facility] 01-12-2023 08:31-0400 Body height 182.88 cm MD Archie Hooks Work Phone: [facility] 01-12-2023 08:31-0400 Body temperature 97.1 [degF] MD Archie Hooks Work Phone: [facility] 01-12-2023 08:31-0400 Body weight 90.71 kg MD Archie Hooks Work Phone: [facility] 09-24-2022 18:20-0500 Diastolic blood pressure 60 mm[Hg] MD Archie Hooks Work Phone: [facility] 09-24-2022 18:20-0500 Heart rate 75 /min MD Archie Hooks Work Phone: [facility] 09-24-2022 18:20-0500 Respiratory rate 18 /min MD Archie Hooks Work Phone: [facility] 09-24-2022 18:20-0500 SaO2% (BldA) [Mass fraction] 95 % MD Archie Hooks Work Phone: [facility] 09-24-2022 18:20-0500 Systolic blood pressure 104 mm[Hg] MD Archie Hooks Work Phone: [facility] 09-24-2022 15:00-0500 Body height 185.42 cm MD Archie Hooks Work Phone: [facility] 09-24-2022 15:00-0500 Body temperature 102 [degF] MD Archie Hooks Work Phone: [facility] 09-24-2022 15:00-0500 Body weight 82.3 kg MD Archie Hooks Work Phone: [facility] 08-21-2022 12:15-0500 Diastolic blood pressure 84 mm[Hg] MD Archie Hooks Work Phone: [facility] 08-21-2022 12:15-0500 Heart rate 64 /min MD Archie Hooks Work Phone: [facility] 08-21-2022 12:15-0500 Respiratory rate 18 /min MD Archie Hooks Work Phone: [facility] 08-21-2022 12:15-0500 SaO2% (BldA) [Mass fraction] 98 % MD Archie Hooks Work Phone: [facility] 08-21-2022 12:15-0500 Systolic blood pressure 134 mm[Hg] MD Archie Hooks Work Phone: [facility] 08-21-2022 09:39-0500 Body height 185.42 cm MD Archie Hooks Work Phone: [facility] 08-21-2022 09:39-0500 Body temperature 97.1 [degF] MD Archie Hooks Work Phone: [facility] 08-21-2022 09:39-0500 Body weight 83.45 kg MD Archie Hooks Work Phone: [facility] 12-14-2021 14:21-0400 Diastolic blood pressure 91 mm[Hg] Davey Roberts [facility] 12-14-2021 14:21-0400 Heart rate 92 /min Davey Roberts [facility] 12-14-2021 14:21-0400 Mean blood pressure 106 mm[Hg] Davey Roberts [facility] 12-14-2021 14:21-0400 Respiratory rate 18 /min Davey Roberts [facility] 12-14-2021 14:21-0400 Systolic blood pressure 136 mm[Hg] Davey Roberts [facility] 10-19-2021 08:36-0400 Diastolic blood pressure 83 mm[Hg] Davey Roberts [facility] 10-19-2021 08:36-0400 Heart rate 82 /min Davey Roberts [facility] 10-19-2021 08:36-0400 Mean blood pressure 99 mm[Hg] Davey Roberts [facility] 10-19-2021 08:36-0400 Respiratory rate 18 /min Davey Roberts [facility] 10-19-2021 08:36-0400 Systolic blood pressure 132 mm[Hg] Davey Roberts [facility] Encounters Encounter Date Encounter Type Care Provider Facility Start: 01-15-2025 ambulatory Víctor BRADY Facility : [facility] Start: 08-07-2024 End: 08-07-2024 Bamboo flowsheet Luis Ruby MD Work Phone: [facility] Start: 08-07-2024 End: 08-07-2024 Bamboo flowsheet Luis Ruby MD Work Phone: [facility] Start: 07-29-2024 End: 07-29-2024 ambulatory ARCHIE HOOKS Not Available Start: 07-29-2024 End: 07-29-2024 Bamboo flowsheet Archie Hooks MD Work Phone: [facility] Start: 07-29-2024 End: 07-29-2024 Bamboo flowsheet Archie Hooks MD Work Phone: [facility] Start: 07-29-2024 End: 07-29-2024 Clinisync Result Encounter Archie Hooks MD Work Phone: [facility] External Department Unsolicited Start: 07-29-2024 ambulatory Serafin Hinds acility:[facility] Start: 07-26-2024 End: 07-26-2024 Refill Luis Ruby [...] Bamboo flowsheet Luis Ruby MD Work Phone: [facility] Start: 04-25-2024 End: 04-25-2024 Bamboo flowsheet Luis Ruby MD Work Phone: [facility] Start: 04-25-2024 End: 04-25-2024 Office outpatient visit 25 minutes Luis Ruby MD Work Phone: [facility] Comment on above: Intractable chronic cluster headache (Primary Dx); Tremor; Polyneuropathy; Lumbar radiculopathy; Intention tremor Start: 04-25-2024 End: 04-25-2024 ambulatory LUIS RUBY Not Available Start: 01-24-2024 End: 01-24-2024 ambulatory LUIS RUBY Not Available Start: 01-17-2024 End: 01-17-2024 ambulatory Víctor BRADY Facility:[facility] Start: 01-17-2024 End: 01-17-2024 Patient encounter procedure Víctor BRADY [facility] Start: 01-15-2024 End: 01-15-2024 ambulatory Víctor BRADY [place] [place] Start: 01-15-2024 End: 01-15-2024 Patient encounter procedure Víctor Gonzáles MIAN [facility] Start: 12-11-2023 End: 12-11-2023 ambulatory [facility] Start: 12-11-2023 End: 12-11-2023 Office outpatient visit 25 minutes López Seals MD Work Phone: [facility] Comment on above: Palpitations (Primar y Dx); PAF (paroxysmal atrial fibrillation) (Multi); Mixed hyperlipidemia; Essential hypertension, benign Start: 11-16-2023 End: 11-16-2023 ambulatory ARCHIE HOOKS Not Available Start: 10-30-2023 End: 10-30-2023 ambulatory [facility] Start: 10-30-2023 End: 10-30-2023 Professional / ancillary services management Allison Gan LPN [facility] Comment on above: Palpitations; PAF (paroxysmal atrial fibrillation) (CMS/HCC) Start: 10-27-2023 End: 10-27-2023 ambulatory [facility] Start: 10-27-2023 End: 10-27-2023 Office outpatient visit 25 minutes López Seals MD Work Phone: [facility] Comment on above: Essential hypertensi on, benign; Other chest pain; Palpitations; PAF (paroxysmal atrial fibrillation) (CMS/HCC); BMI 22.0-22.9, adult; Smoker Start: 10-23-2023 End: 10-23-2023 ambulatory LUIS RUBY Not Available Start: 07-20-2023 End: 07-20-2023 Admission to same day surgery center Víctor BRADY [facility] Start: 07-20-2023 End: 07-20-2023 ambulatory Víctor P MIAN [place] [place] Start: 07-14-2023 End: 07-14-2023 ambulatory Víctor BRADY Facility[place] [place] Start: 07-14-2023 End: 07-14-2023 Patient encounter procedure Víctor BRADY [facility] Start: 07-06-2023 End: 07-06-2023 Emergency department patient visit MD Archie Hooks Work Phone: [facility] Work Phone: Start: 07-04-2023 End: 07-04-2023 ambulatory Víctor P MIAN Facility:[facility] Start: 07-04-2023 End: 07-04-2023 Patient encounter procedure Víctor BRADY [facility] Luis Eduardo Start: 06-28-2023 End: 06-28-2023 Emergency department patient visit MD Archie Hooks Work Phone: [facility] Work Phone: Start: 06-23-2023 ambulatory Víctor BRADY Facility:[facility] Start: 06-23-2023 End: 06-23-2023 Emergency department patient visit MD Archie Hooks Work Phone: [facility] Work Phone: Start: 06-01-2023 End: 06-01-2023 ambulatory [facility] Start: 06-01-2023 End: 06-01-2023 Office outpatient visit 25 minutes López Galan DO Work Phone: [facility] Comment on above: Essential hypertensi on, benign; Mixed hyperlipidemia; Type 2 diabetes mellitus without complication, unspecified whether mcc insulin use ([facility]); Other chest pain; Palpitations; PAF (paroxysmal atrial fibrillation) ([facility]) Start: 05-01-2023 End: 05-01-2023 Admission to same day surgery center MD Archie Hooks Work Phone: [facility]-Registered Nurse Nursery Work Phone: Start: 05-01-2023 End: 05-01-2023 ambulatory MD Archie Hooks Work Phone: [facility] Work Phone: Start: 04-27-2023 Chart Update Archie Capone er Work Phone: [facility] DO Work Phone: Start: 04-27-2023 End: 04-27-2023 ambulatory MD Archie Hooks Work Phone: [facility] Work Phone: Start: 04-27-2023 End: 04-27-2023 Patient encounter procedure MD Archie Hooks Work Phone: [facility]-Pre-Surgical Testing Work Phone: Start: 04-26-2023 ambulatory López Galan Facilit y: Start: 04-04-2023 Chart Update Archie Capone er Work Phone: [facility] 250 DO Work Phone: Start: 04-01-2023 ambulatory LEONEL Roblero cility:[id number] Start: 03-16-2023 AUDIT Archie Capone er Work Phone: [facility] 250 DO Work Phone: Start: 03-01-2023 End: 03-05-2023 Evaluation and management of inpatient MD Archie Hooks Work Phone: [facility] Work Phone: Start: 02-20-2023 ambulatory Ms. Leonel Sandoval Facility: Start: 02-17-[address] Adelita Mazariegos Facility: Start: 02-07-2023 Chart Update Archie Capone er Work Phone: [facility] 250 DO Work Phone: Start: 02-07-2023 End: 02-07-2023 ambulatory MD Archie Hooks Work Phone: [facility] Work Phone: Start: 02-07-2023 End: 02-07-2023 Patient encounter procedure MD Archie Hooks Work Phone: [facility]-Lab [facility] Work Phone: Start: 02-06-[address] Archie Hooks Facility:[id number] Start: 01-25-2023 Office outpatient vi sit 25 minutes Archie Hooks Work Phone: [facility] 250 DO Work Phone: Start: 01-25-2023 ambulatory Ms. Leonel Sandoval Facility: Start: 01-12-2023 ambulatory Ms. Leonel Sandoval Facilit y:[id number] Start: 01-12-2023 End: 01-13-2023 Evaluation and management of inpatient MD Archie Hooks Work Phone: [facility] Work Phone: Start: 01-12-2023 observation encounter MD Bharath Hooks Work Phone: [facility] Work Phone: Start: 01-12-2023 ambulatory Ms. Leonel Sandoval Facilit y:[id number] Start: 10-13-2022 End: 10-14-[address] ARCHIE HOOKS . Facility:[facility] Start: 09-24-2022 End: 09-24-2022 Emergency department patient visit MD Archie Hooks Work Phone: [facility]-Emergency Room Work Phone: Start: 08-21-2022 End: 08-21-2022 Emergency department patient visit MD Archie Hooks Work Phone: [facility]-Emergency Room Work Phone: Start: 01-28-2022 End: 01-29-[address] ARCHIE HOOKS . Facility:[facility] Start: 12-14-2021 End: 12-14-2021 Patient encounter procedure Davey Roberts [facility] Start: 10-19-2021 End: 10-19-2021 Patient encounter procedure Davey Roberts [facility] Start: 11-16-2017 Ambulatory ANTHONY Crocker [facility] Procedures Date Procedure Procedure Detail Performing [...] Work Phone: Start: 07-20-2023 Transurethral cystoscopy Víctor BRADY Start: 07-06-2023 Computed tomography of abdomen and [...] above: Performed By: #### T SCR #### [facility] [address] [place], [place] [address] Start: 09-11-2015 Colonoscopy Luis saavedra MD Work Phone: Start: 07-31-1970 Tonsillectomy and adenoidectomy Davey Roberts Ablation - action (q ualifier value) Davey Roberts Comment on above: 1989 cardiac ablatio n Catheter ablation of arrhythmogenic focus Archei Valentealejandra Work Phone: Cholecystectomy Denispilo Soriano Hem eyer Work Phone: Colonoscopy Archie Soriano Hemeye r Work Phone: Colonoscopy Víctor BRADY Lithotripsy Denispilo Christie Ambrosioye r Work Phone: Nerve graft Davey Roberts Comment on above: 1987 Nerve graft Lef t wrist Operative procedure on wrist Archie Valentealejandra Work Phone: Tonsillectomy Archie Capone er Work Phone: Plan of Treatment Date Care Activity Detail Author Start: 01-29-2032 DTaP/Tdap/Td Vaccine s (5 - Td or Tdap) DTaP/Tdap/Td Vaccines (5 - Td or Tdap) [facility] Start: 09-11-2025 Screening for malign ant neoplasm of colon [facility] Start: 01-14-2025 Glaucoma screening Diabetes: R etinopathy Screening [facility] Start: 11-16-2024 Lipid panel Lipid Panel [facility] Start: 11-16-2024 Urine screening for protein Diabetes: Urine Protein Screening [facility] Start: 10-24-2024 End: 10-24-2024 Patient encounter procedure [facility] 100 Start: 09-30-2024 End: 05-02-2025 Comprehensive metabolic 2000 panel - Serum or Plasma Comprehensive metabolic panel Lab Routine Benign essential hypertension (CMS/HCC) Hypertensive nephropathy (CMS/HCC) Type 2 diabetes mellitus without complication, without long-term current use of insulin (CMS/HCC) Expected: 09/30/2024, Expires: 05/02/2025 [facility] Work Phone: Comment on above: Expected: 09/30/2024 , Expires: 05/02/2025 Start: 09-30-2024 End: 05-02-2025 Hemoglobin A1c/Hemoglobin.total in Blood Hemoglobin A1c Lab Routine Type 2 diabetes mellitus without complication, without long-term current use of insulin ([facility]) Expected: 09/30/2024, Expires: 05/02/2025 [facility] Comment on above: Expected: 09/30/2024 , Expires: 05/02/2025 Start: 09-30-2024 End: 05-02-2025 Lipid 1996 panel - Serum or Plasma Lipid panel Lab Routine Mixed dyslipidemia ([facility]) Expected: 09/30/2024, Expires: 05/02/2025 [facility] Comment on above: Expected: 09/30/2024 , Expires: 05/02/2025 Start: 08-30-2024 End: 08-30-2024 Patient encounter procedure 08/30/2024 10:10 AM EST Office Visit [facility] [address] [place] [address] Felicitas Felipe MD [address] [place] [address] [facility] Start: 08-07-2024 End: 08-07-2024 Patient encounter procedure [facility] Comment on above: Arrived Start: 08-05-2024 End: 08-05-2024 Patient encounter procedure 08/05/2024 1:40 PM EST Office Visit [facility] [address] [facility] [address] [place] [address] Luis Ruby MD [address] [facility] [address] [id number] [facility] Start: 06-11-2024 End: 06-11-2025 CBC W Auto Differential panel - Blood CBC and differential Lab Routine Diverticulitis of large intestine with bleeding, unspecified complication status Bright red blood per rectum Expected: 06/11/2024 (Approximate), Expires: 06/11/2025 [facility] Work Phone: Comment on above: Expected: 06/11/2024 (Approximate), Expires: 06/11/2025 Start: 05-02-2024 End: 05-02-2024 Patient encounter procedure [facility] Comment on above: Benign essential hyp ertension ([facility]); Hypertensive nephropathy ([facility]); Microalbuminuria; Type 2 diabetes mellitus without complication, without long-term current use of insulin ([facility]); Mixed dyslipidemia ([facility]); Polypharmacy; Nicotine use disorder Start: 04-25-2024 End: 04-25-2024 Patient encounter procedure 04/25/2024 2:00 PM EDT Office Visit [facility] [address] [place] [address] Luis Ruby MD [address] [facility] [address] [address] Arrived [facility] Comment on above: Arrived Start: 03-31-2024 Influenza vaccination [facility] Start: 02-16-2024 Hemoglobin A1c measurement Diabetes: Hemoglobin A1C [facility] Start: 12-11-2023 End: 12-11-2023 Patient encounter procedure 12/11/2023 10:50 AM EDT Office Visit [place] [id number] [facility] [address] [place] [address] López Seals MD [address] [facility] [address] [place], [place] [id number] [facility] Start: 11-22-2023 FUV, Provider: López Galan, Status: Zack, Time: 11:00 AM FUV, Provider: López Galan, Status: Zack, Time: 11:00 AM [facility] 250 DO Work Phone: Start: 11-22-2023 End: 11-22-2023 Patient encounter procedure 11/22/2023 11:00 AM EDT Office Visit [facility] [address] [facility] [address] [place] [address] López Galan DO [address] [facility] [address] [place] [address] [facility] Start: 10-30-2023 End: 10-26-2024 ECG 12 Lead [facility] Work Phone: Comment on above: Expected: 10/30/2023 (Approximate), Expires: 10/26/2024 Start: 10-30-2023 End: 10-30-2023 Professional / ancillary services management [facility] Start: 10-27-2023 End: 10-27-2023 Patient encounter procedure 10/27/2023 2:30 PM EDT Office Visit [facility] [address] [place] [address] López Seals MD [address] [place] [address] [facility] Start: 10-27-2023 End: 10-26-2024 Holter monitor study 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 Cardiac Services Routine Palpitations PAF (paroxysmal atrial fibrillation) (CMS/HCC) Expected: 10/27/2023, Expires: 10/26/2024 [facility] Service Area Work Phone: Comment on above: Expected: 10/27/2023 , Expires: 10/26/2024 Start: 06-23-2023 Bacteria identified in Urine by Culture [facility] Start: 06-23-2023 CT Abdomen and Pelvi s WO contrast [facility] [facility] Start: 06-23-2023 CT of abdomen and pelvis without contrast CT abdomen pelvis wo con [facility] Start: 05-01-2023 [facility], Provider: López Galan, Status: Pen, Time: 10:00 AM [facility], Provider: López Galan, Status: Pen, Time: 10:00 AM [facility] 250 DO Work Phone: Start: 05-01-2023 [facility] Start: 03-31-2023 COVID-19 Vaccine () COVID-19 Vaccine () [facility] Start: 03-31-2023 Influenza vaccination Influenza Vacc ine (#1) [facility] Start: 03-05-2023 [facility] Start: 03-01-[address] Hospital admission [facility] Start: 02-20-2023 FUV, Provider: Leonel Alvarez, Status: Pen, Time: 8:00 AM [facility], Provider: Leonel Alvarez, Status: Pen, Time: 8:00 AM [facility] 250 DO Work Phone: Start: 02-07-2023 HOLTER 48, Provider: LILIA ROB OIL PIPELINE OPERATOR 1,[id number], Status: Pen, Time: 8:30 AM HOLTER 48, Provider: LILIA ROB OIL PIPELINE OPERATOR 1,[id number], Status: Pen, Time: 8:30 AM [facility] 250 DO Work Phone: Start: 02-06-2023 STRESS NUC, Provider : LUIS EDUARDO HHVI NUCLEAR 01,[id number], Status: Pen, Time: 8:00 AM STR[facility] NUC, Provider: LUIS EDUARDO HHVI NUCLEAR 01,[id number], Status: Pen, Time: 8:00 AM [facility] 250 DO Work Phone: Start: 01-13-2023 [facility] Start: 01-12-2023 [facility] Start: 01-12-2023 Sleep disorder assessment [facility] Start: 01-12-2023 Referral to traffic coordinator [facility] Start: 01-12-2023 Hospital admission [facility] Start: 01-12-2023 [facility] Start: 01-12-2023 [facility] Start: 2022 Hepatitis B Vaccines (1 of 3 - Risk 3-dose series) Hepatitis B Vaccines (1 of 3 - Risk 3-dose series) [facility] Start: 2022 RSV patient s and/or patients aged 60+ years (1 - 1-dose 60+ series) RSV patients and/or patients aged 60+ years (1 - 1-dose 60+ series) [facility] Start: 10-03-2021 COVID-19 Vaccine (2 - Pfizer series) COVID-19 Vaccine (2 - Pfizer series) [facility] Start: 2016 Pneumococcal Vaccine : Pediatrics (0 to 5 Years) and At-Risk Patients (6 to 64 Years) (2 - PCV) Pneumococcal Vaccine: Pediatrics (0 to 5 Years) and At-Risk Patients (6 to 64 Years) (2 - PCV) [facility] Start: 2016 Pneumococcal Vaccine : Pediatrics (0 to 5 Years) and At-Risk Patients (6 to 64 Years) (2 of 2 - PCV) Pneumococcal Vaccine: Pediatrics (0 to 5 Years) and At-Risk Patients (6 to 64 Years) (2 of 2 - PCV) [facility] Start: 2012 Zoster Vaccines (1 o f 2) Zoster Vaccines (1 of 2) [facility] Start: 1981 Urine screening for protein Diabetes: Urine Protein Screening [facility] Start: 1980 Hepatitis C screening Hepatitis C [facility] Start: 1972 Diabetic foot examination Diabetes: Foot Exam [facility] Start: 1972 Glaucoma screening Diabetes: R etinopathy Screening [facility] Start: 1963 MMR Vaccines (1 of 1 - Standard series) MMR Vaccines (1 of 1 - Standard series) [facility] Start: 1962 Hemoglobin A1c measurement Diabetes: Hemoglobin A1C [facility] Start: 1962 HIV screening [facility] Screening [facility] Start: 1962 Lipid panel Lipid Panel [facility] Start: 1962 Screening for malign ant neoplasm of colon [facility] Start: 1962 Yearly Adult Physical Yearly Adult P hysical [facility] Glucose measurement estimated from glycated hemoglobin [facility] Hemoglobin A1c/Hemoglobin.total in Blood [facility] Patient Education [facility] Work Phone: Patient referral [facility] Work Phone: Immunizations Immunization Date Immunization Notes Care Provider Fa genie 07-04-2022 Influenza, injectabl e, Madin Garita Canine Kidney, preservative free, quadrivalent Archie Hooks Work Phone: [facility] 250 DO Work Phone: 07-04-2022 influenza virus vacc ine, unspecified formulation López Galan DO Work Phone: [facility] Work Phone: 01-28-2022 diphtheria, tetanus toxoids and pertussis vaccine Archie Hooks Work Phone: [facility] 250 DO Work Phone: 08-08-2021 Pfizer-BioNTKaChing! COVI D-19 Vacc 30 MCG/0.3ML Intramuscular Suspension Archie Hooks Work Phone: [facility] 05-12-2021 seasonal influenza, intradermal, preservative free Luis Ruby MD Work Phone: [facility] 02-25-2021 tetanus toxoid, redu bill diphtheria toxoid, and acellular pertussis vaccine, adsorbed MD Archie Hooks Work Phone: [facility] 08-31-2018 influenza, injectabl e, quadrivalent, preservative free Archie Hooks Work Phone: [facility] 08-03-2017 influenza, high dose seasonal, preservative-free Luis Ruby MD Work Phone: [facility] 08-03-2017 influenza, injectabl e, quadrivalent, preservative free Archie Hooks Work Phone: [facility] 250 DO Work Phone: 04-30-2017 influenza, seasonal, injectable MD Archie Hooks Work Phone: [facility] 02-01-2017 hepatitis A vaccine, adult dosage Archie Hooks Work Phone: [facility] 250 DO Work Phone: 12-06-2016 tetanus and diphther ia toxoids, adsorbed, preservative free, for adult use (5 Lf of tetanus toxoid and 2 Lf of diphtheria toxoid) Archie Christie [employer] Work Phone: [facility] 250 DO Work Phone: 08-04-2016 hepatitis A vaccine, adult dosage Archie Soriano [employer] Work Phone: [facility] [employer] DO Work Phone: 05-16-2016 influenza, injectabl e, quadrivalent, preservative free Luis Ruby MD Work Phone: [facility] 2015 pneumococcal polysaccharide vaccine, 23 valent Edpilo Soriano [employer] Work Phone: [facility] [employer] DO Work Phone: 06-02-2015 tetanus toxoid, redu bill diphtheria toxoid, and acellular pertussis vaccine, adsorbed Edpilo [employer] Work Phone: [facility] [employer] DO Work Phone: 05-11-2015 influenza, injectabl e, quadrivalent, preservative free Luis Ruby MD Work Phone: [facility] 06-06-2005 hepatitis B vaccine, pediatric or pediatric/adolescent dosage Archie [employer] Work Phone: [facility] 250 DO Work Phone: 01-08-2005 hepatitis B vaccine, pediatric or pediatric/adolescent dosage Edpilo [employer] Work Phone: [facility] 250 DO Work Phone: 11-10-2004 hepatitis B vaccine, pediatric or pediatric/adolescent dosage Edpilo basestoneyer Work Phone: [facility] 250 DO Work Phone: Payers Date Payer Category Payer [facility] [id number] 2023 Unknown 2023 Unknown [id number] 2023 Unknown [id number] 2023 Self-pay [id number] 2022 Medicaid [employer] [id number] 2022-Present [address] [address] [place] [address] [id number]. [id number] 1962 Unknown [id number] 2.16840.1.559664.3.579.2. 593 1962 Unknown [id number] 2.840.1.951768.3.579.2. 593 1962 Unknown [id number] 2.840.1.383807.3.579.2. 1068 1962 Unknown [id number] 2.16840.1.642697.3.579.2. 1068 1962 Unknown [id number] 2.16840.1.129661.3.579.2. 356 1962 Unknown [id number] 2.16840.1.739875.3.579.2. 356 1962 Unknown [id number] 2.16840.1.830123.3.579.2. 356 1962 Unknown [id number] 2.16.840.1.255686.3.579.2. 356 1962 Unknown [id number] 2.16.840.1.309117.3.579.2. 356 1962 Unknown [id number] 2.16.840.1.532577.3.579.2. 356 1962 Unknown [id number] 2.16.840.1.555403.3.579.2. 356 1962 Unknown [id number] 2.16.840.1.178611.3.579.2. 1244 1962 Unknown [id number] 2.16.840.1.508547.3.579.2. 124 1962 Unknown [id number] 2.16.840.1.746453.3.579.2. 124 1962 Unknown [id number] 2.16.840.1.720649.3.579.2. 124 1962 Unknown [id number] 2.16.840.1.744161.3.579.2. 1244 1962 Unknown [id number] 2.16.840.1.879769.3.579.2. 72 1962 Unknown [id number] 2.16.840.1.514133.3.579.2. 727 1962 Unknown [id number] 2.16.840.1.084933.3.579.2. 72 1962 Unknown [id number] 2.16.840.1.876226.3.579.2. 727 1962 Unknown [id number] 2.16.840.1.156945.3.579.2. 72 1962 Unknown [id number] 2.16.840.1.460009.3.579.2. 727 1962 Unknown [id number] 2.16.840.1.437885.3.579.2. 72 1962 Unknown [id number] 2.16.840.1.694904.3.579.2. 9 1962 Unknown [id number] 2.16.840.1.998571.3.579.2. 1258 1962 Unknown [id number] 2.16.840.1.974212.3.579.2. 1258 1962 Unknown [id number] 2.16.840.1.454677.3.579.2. 1258 1962 Unknown [id number] 2.16.840.1.363482.3.579.2. 1258 1962 Unknown [id number] 2.16.840.1.345212.3.579.2. 1258 1962 Unknown [id number] 2.16.840.1.916377.3.579.2. 1259 1959 Medicaid [id number] Unknown [facility] [id number] Unknown [id number] Unknown [id number] Unknown [id number] 2.16.840.1.072887.3.579.2. 531 Social History Date Type Detail Facility Start: 10-19-2021 End: 07-04-2023 Tobacco smoking status Heavy tobacco smoker (finding) [facility] Start: 06-01-2023 End: 06-11-2024 Sex Assigned At Male [facility] Start: 08-21-2022 End: 07-06-2023 Tobacco smoking status INIS Smoker (finding) [facility] Start: 1960 Sex Assigned At Male [facility] Start: 06-01-2023 End: 06-11-2024 Occasional caffeine consumption Occasional caffeine consumption [facility] Comment on above: 08/01 ppd; Start: 06-01-2023 End: 05-02-2024 Tobacco smoking status NHIS Smokes tobacco daily [facility] Work Phone: History of tobacco use Cigarette Smoker [facility] Work Phone: Start: 06-01-2023 End: 05-02-2024 Tobacco use and exposure Smokeless tobacco non-user [facility] Work Phone: Start: 06-01-2023 End: 01-24-2024 Alcohol intake Current drinker of alcohol (finding) [facility] Work Phone: Start: 06-01-2023 Alcohol Comment social [facility] Work Phone: Start: 1960 Sex Assigned At Not on file [facility] Work Phone: Start: 05-22-2023 End: 12-11-2023 Exposure to SARS-CoV-2 (event) Not sure [facility] Tobacco smoking status Never [facility] Start: 10-27-2023 End: 06-11-2024 Alcohol intake Ex-drinker (finding) [facility] Work Phone: Within the last year , have you been afraid of your partner or ex-partner? No [facility] Do you belong to any clubs or organizations such as episcopal groups, unions, fraternal or athletic groups, or [...] Only a little [facility] (I/We) worried wheth er (my/our) food would run out before (I/we) got money to buy more. Never true [facility] Start: 01-27-2023 Tobacco Comment 11-20 cigarettes/day [facility] Start: 01-27-2023 Alcohol Comment 10 or more dri nks 2 to 3 times a week. Caffeine more than 4 cups per day [facility] Start: 01-03-2023 Gender identity Identifies as male gender (finding) [facility] Goals Date Patient Goal Desired Activity /State Functional Status Date Assessment Result Facility 01-17-2024 Functional Status N/A [facility] [place] 07-14-2023 Functional Status No [facility] 07-04-2023 Functional Status N/A [facility] Luis Eduardo 03-05-2023 Functional status Patient at Baseline [facility] Work Phone: 01-13-2023 Functional status Patient at Baseline [facility] Work Phone: Mental Status Date Assessment Result Facility 03-05-2023 Cognitive function Cognitive Sta tus Patient at Baseline [facility] Work Phone: 01-13-2023 Cognitive function Cognitive Sta tus Patient at Baseline [facility] Work Phone: Clinical Notes 03-04-2021 to 07-26-2024 Telephone Encounter - Stacey Holbrook NP - 07/26/2024 3:01 PM ESTTelephone Encounter - Stacey Holbrook NP - 07/26/2024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 Benign essential hypertension (CMS/HCC)- Primary Essential hypertension, benign Hypertensive nephropathy (CMS/HCC) Unspecified hypertensive kidney disease with chronic kidney disease stage I through stage IV, or unspecified Microalbuminuria Proteinuria Type 2 diabetes mellitus without complication, without long-term current use of insulin (CMS/HCC) Mixed dyslipidemia (CMS/HCC) Polypharmacy Issue of repeat prescriptions Nicotine use disorder Tobacco use disorder Alcoholism ([facility]/HCC) Other and unspecified alcohol dependence, unspecified drinking [...] medication regimen. He denies medication side effects. [facility] Eduardo [address] DO Work Phone: Hospital Discharge instructions No data available for this section [facility] Additional Instructions Follow-up with your primary care doctor Return to the ED if you develop worsening symptoms or concerns[facility] Work Phone: Hospital Discharge instructions Additional Instructions Regular Diet No Activity RestrictionsD[facility] Work Phone: Hospital Discharge instructions Additional Instructions DISCHARGE INSTRUCTIONS FOR CARDIAC SKATES OPERATOR PHONE NUMBER OF YOUR PHYSICIAN: [phone] PROCEDURE: Heart Cath The following instructions have [...] cold, numb, blue or white, call the traffic coordinator immediately. 4. ACTIVITY: You are advised to [...] bottle, follow the instructions on the bottle. [facility] is not responsible for incorrect prescription information provided by the patient during their visit. Do not stop your medications without consulting your health care provider. Please take the list with you to your next doctor's appointment.[facility] Work Phone: Hospital Discharge instructions Additional Instructions Increase your intake of fluids. Take Keflex as prescribed. Take Flomax daily as prescribed. Take Tylenol as needed for mild to moderate pain. Take oxycodone as prescribed for severe pain. Take Zofran as prescribed for nausea vomiting. Follow-up with the urologist listed below for ongoing care of kidney stone.[facility] Work Phone: Hospital Discharge instructions Additional Instructions Take your medications as prescribed and follow-up with Dr. Brady for further management of your kidney stone.[facility] Work Phone: Hospital Discharge instructions Additional Instructions Push fluids Rest Take Flomax as ordered Follow-up with Dr. Brady's office Return here if any problems persist or worsen You can take your oxycodone if needed for severe painFormerly [facility] Work Phone: Progress note No data available for this section [facility] Luis Eduardo Reason for referral (narrative)* Consultation (Routine) - Authorized Specialty Diagnoses / Procedures Referred By Contac t Referred To Contact Cardiology Diagnoses Essential hypertension, benign Other chest pain Palpitations PAF (paroxysmal atrial fibrillation) (CMS/HCC) Procedures Follow Up In Cardiology López Galan DO [address] [facility] 2, [address] [address] López Galan DO [address] [facility] 2, [place] [id number] Referral ID Status Reason Start Date Expiration Date V isits Requested Visits Authorized [id number] Authorized 06/01/2023 05/31/2024 1 1 [facility] Work Phone: Reyqga for referral (narrative)* Consultation (Routine) - Authorized Specialty Diagnoses / Procedures Referred By Contac t Referred To Contact Cardiology Diagnoses PAF (paroxysmal atrial fibrillation) (Multi) Procedures Follow Up In Cardiology López Seals MD [address] [facility] 2, [address] [address] Felicitas Felipe MD [address] [facility] 2, [address] [address] Referral ID Status Reason Start Date Expiration Date V isits Requested Visits Authorized [id number] Authorized 12/11/2023 12/10/2024 1 1 * Cardiovascular (Routine) - Authorized Specialty Diagnoses / Procedures Referred By Contac t Referred To Contact Diagnoses PAF (paroxysmal atrial fibrillation) (Multi) Procedures ECG 12 Lead López Seals MD [address] [facility] 2, [address] [place] [address] Referral ID Status Reason Start Date Expiration Date V isits Requested Visits Authorized [id number] Authorized 12/11/2023 12/10/2024 1 1 T [facility] Work Phone: Summary Purpose Family History Relationship [...] This is initial in clinic follow-up at [facility]. * December 2022 hospitalized at [facility] due to chest pain, seen in consult by Dr. Galan. Chest pain felt to be atypical, he ruled out for ACS. Inpatient echo EF 55 to 60%, no wall motion abnormality. No changes to medical regimen at time of discharge. 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 He reports [...] of premature coronary artery disease in father [place] at 40 * Blood pressure remains elevated [...] Referral Specialty Diagnoses / Procedures Referred By Genaac t Referred To Contact Diagnoses Palpitations PAF (paroxysmal atrial fibrillation) ([facility]) Procedures ECG 12 Lead López Seals MD [facility] [address], [address] [address] Referral ID Status Reason Start Date Expiration Date V isits Requested Visits Authorized [id number] Authorized 10/27/2023 10/26/2024 1 1 Referral ID Status Reason Start Date Expiration Date V isits Requested Visits Authorized [id number] Authorized 10/27/2023 10/26/2024 1 1 Specialty Diagnoses / Procedures Referred By Contac t Referred To Contact Cardiology Diagnoses Palpitations PAF (paroxysmal atrial fibrillation) ([facility]) Procedures 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 López Seals MD [address], [address] [place] [address] Referral ID Status Reason Start Date Expiration Date V isits Requested Visits Authorized [id number] Pending Review 10/27/2023 10/26/2024 1 1 Specialty Diagnoses / Procedures Referred By Contac t Referred To Contact Cardiology Diagnoses PAF (paroxysmal atrial fibrillation) ([facility]/HCC) Procedures Follow Up In Cardiology López Seals MD [address] [facility] 2, [facility] [address] [place] [address] Referral ID Status Reason Start Date Expiration Date V isits Requested Visits Authorized [id number] Authorized 10/27/2023 10/26/2024 1 1 Additional Source Comments (unrecognized sect ion and content) No Status Records FoundNo Status Records FoundNo Status Records FoundNo Status Records FoundNo Status Records FoundNo Status Records FoundNo Status Records FoundNo Status Records FoundNo Status Records FoundNo Status Records FoundNo Status Records Found INFORMATION SOURCE (unrecogn ized section and content) DATE CREATED AUTHOR 01/18/2018 [facility] DATE CREATED AUTHOR AUTHOR'S ORGANIZ ATION 08/29/2021 [facility] DATE CREATED AUTHOR AUTHOR'S ORGANIZ ATION 11/20/2021 [facility] dical Specialist DATE CREATED AUTHOR AUTHOR'S ORGANIZ ATION 10/22/2022 [facility] DATE CREATED AUTHOR AUTHOR'S ORGANIZ ATION 04/03/2023 [facility] DATE CREATED AUTHOR AUTHOR'S ORGANIZ ATION 05/04/2023 [facility] DATE CREATED AUTHOR AUTHOR'S ORGANIZ ATION 05/20/2023 [facility] ical Center DATE CREATED AUTHOR AUTHOR'S ORGANIZ ATION 12/12/2023 [facility] DATE CREATED AUTHOR AUTHOR'S ORGANIZ ATION 01/24/2024 [facility] DATE CREATED AUTHOR AUTHOR'S ORGANIZ ATION 07/29/2024 [facility] DATE CREATED AUTHOR AUTHOR'S ORGANIZ ATION 07/31/2024 [facility] dical Specialists EPIC Care Teams (unrecognized sec tion and content) Team Status: Active Member Role Status Dates Archie Hooks MD Primary Care Provider Active Team Status: Inactive Member Role Status Dates Archie Hooks MD Primary Care Provider Active Alexy Albarran DO Emergency Provider Active Chantel Hsasan MD Admit Provider, Attending Provi sweta Active Myriam Galan , DO Other Provider Active Team Status: Inactive Member Role Status Dates Archie Hooks MD Primary Care Provider Active Leonel Sandoval APRN Attending Provider Active Team Status: Active Member Role Status Dates Archie Hooks MD Primary Care Provider Active Alexy Albarran DO Emergency Provider Active Chantel Hassan MD Admit Provider, Attending Provi sweta Active Team Status: Inactive Member Role [...] MD Primary Care Provider Active Myriam Galan , DO Attending Provider Active Team Status: Inactive Member Role Status Dates Archie Hooks MD Primary Care Provider Active Serafin Capps MD Admit Provider Active Buddy Rome MD Attending Provider Active Drywall Applicator Relationship Specialty Start Date End Date Archie Hooks MD [address] [place] [id number] PCP - General 01/25/23 Team Status: Inactive [...] Active Ashley Rush APRN Emergency Provider Active Drywall Applicator Relationship Specialty Start Date End Date Archie Hooks MD [address] [place] [phone] PCP - General 01/25/23 Drywall Applicator Relationship Specialty Start Date End Date Archie Hooks MD [address] [place] [phone] PCP - General 01/25/23 Drywall Applicator Relationship Specialty Start Date End Date Archie Hooks MD [facility] [address] [place] [phone] PCP - General 01/25/23 Drywall Applicator Relationship Specialty Start Date End Date Archie Hooks MD [address] [place] [address] (Fax) PCP - General Family Medicine 01/16/23 Drywall Applicator Relationship Specialty Start Date End Date Archie Hooks MD [address] [place] [phone] (Fax) PCP - General Family Medicine 01/16/23 Drywall Applicator Relationship Specialty Start Date End Date Archie Hooks MD [address] [place] [address] (Fax) PCP - General Family Medicine 01/16/23 Drywall Applicator Relationship Specialty Start Date End Date Archie Hooks MD [address] [place] [address] (Fax) PCP - General Family Medicine 01/16/23 Drywall Applicator Relationship Specialty Start Date End Date Archie Hooks MD [address] [place] [address] (Fax) PCP - General Family Medicine 01/16/23 Drywall Applicator Relationship Specialty Start Date End Date Archie Hooks MD [address] [place] [address] (Fax) PCP - General Family Medicine 01/16/23 Drywall Applicator Relationship Specialty Start Date End Date Archie Hooks MD [address] [place] [address] (Fax) PCP - General Family Medicine 01/16/23 Drywall Applicator Relationship Specialty Start Date End Date Archie Hooks MD [address] [facility] [address] [place] [address] (Fax) PCP - General Family Medicine 01/16/23 Drywall Applicator Relationship Specialty Start Date End Date Archie Hooks MD [address] [facility] [address] [place] [address] (Fax) PCP - General Family Medicine 01/16/23 Drywall Applicator Relationship Specialty Start Date End Date Archie Hooks MD [address] [address] (Fax) PCP - General Family Medicine 01/16/23 Drywall Applicator Relationship Specialty Start Date End Date Archie Hooks MD [address] [address] (Fax) PCP - General Family Medicine 01/16/23 [...] Up In Cardiology López Galan DO [address] [facility] 2, [address] [place] [address] López Galan DO [address] [facility] 2, [address] [address] Referral ID Status Reason Start Date Expiration Date V isits Requested Visits Authorized [id number] Authorized 06/01/2023 05/31/2024 1 1 Reason Comments ekg visit Specialty Diagnoses / Procedures Referred By Contac t Referred To Contact Diagnoses Palpitations PAF (paroxysmal atrial fibrillation) ([facility]) Procedures ECG 12 Lead López Seals MD [address] [place] [address] [address], [address] [address] Referral ID Status Reason Start Date Expiration Date V isits Requested Visits Authorized [id number] Authorized 10/27/2023 10/26/2024 1 1 Reason Comments Follow-up 2 month Specialty Diagnoses / Procedures Referred By Contac t Referred To Contact Cardiology Diagnoses PAF (paroxysmal atrial fibrillation) ([facility]) Procedures Follow Up In Cardiology López Seals MD [address] [place] [address] [address], [address] [address] Referral ID Status Reason Start Date Expiration Date V isits Requested Visits Authorized [id number] Authorized 10/27/2023 10/26/2024 1 1 Reason Comments [...] BE BASED ON THE PRIMARY CLINICAL RECORDS. [employer] provides no warranty or guarantee of the accuracy or completeness of information in this document.
--- NOTE | 2024-08-11 23:16 | CT_ITS ---
The [address] [address] Patient Name: JARON RODGERS MRN: [id number] date: 1960 Sex: M Assigned Patient Location: ER Current Patient Location: ER Accession/Order Number: [id number] Exam Date: 08/11/2024 23:29 Report Date: 08/11/2024 23:50 At the request of: MATI MARKER Procedure: CT head/brain wo con EXAM: CT head/brain wo con HISTORY: Dizziness and headaches. COMPARISON: None. TECHNIQUE: Axial images of the brain were obtained from the skull base to the vertex without contrast enhancement. Sagittal and coronal reformations were provided. FINDINGS: No acute intracranial hemorrhage, extra-axial fluid collection, midline shift or mass effect is seen. No space-occupying lesion is demonstrated. There is no evidence of hydrocephalus or an acute ischemic event. Vascular calcifications are seen along the course of the carotid siphon. Mucosal thickening is present within the ethmoid and sphenoid sinuses. The mastoids are well-aerated CT/CT head/brain wo con IMPRESSION: No CT evidence of an acute intracranial process. Electronically authenticated by: SERINA PLATA Date: 08/11/2024 23:50
[2024-08-11] MEDS: KETOROLAC TROMETHAMINE 30 MG/ML VIAL IVP (23:43)
[2024-08-12 00:11] VITALS: O2SAT 100
== END 2024-08-12 01:09 | disposition home or self-care (01) ==
PROVIDERS: Emergency Provider Emergency Medicine; PCP Family Medicine
DX: R51.9 Headache, unspecified (principal); G62.9 Polyneuropathy, unspecified
CPT/HCPCS: 70450; 96374; 99284; J1885